=== PATIENT | male | born 1940 | race Caucasian/White ===

== ENCOUNTER → 2017-09-14 | Outpatient (CLI) | payer BC ==
[~2017-09-14] MED LIST: ASPEC81 PO; ATEN50TA8 PO; CHOL100010 PO; FLV1 PO; GLC850 PO; HYDR25TA4 PO; LISI-729 PO; METH1CHW PO; SIMV20TA2 PO; THM100 PO
== END | disposition home or self-care (01) ==
LOC: C.PATHSPEC 16:33
PROVIDERS: ATTEND Physician Assistant
DX: L57.0 Actinic keratosis (principal)

== ENCOUNTER 2020-03-21 15:16 | Inpatient (IN) ==
[2020-03-21] MEDS ORDERED: GLUCAGON FOR INJ 1 MG VIAL SQ PRN (15:31)
[2020-03-21] MEDS ORDERED: POLYETHYLENE (MIRALAX) 17 GM PACK PO PRN (15:31)
[2020-03-21] MEDS ORDERED: GLUCOSE 10 TABS/TUBE PO PRN (15:31)
[2020-03-21] MEDS ORDERED: ALUMINUM/MAGNESIUM SUSP 30 ML UDC PO PRN (15:31)
[2020-03-21] MEDS ORDERED: MAGNESIUM HYDROXIDE SUSP 30 ML UDC PO PRN (15:31)
[2020-03-21] MEDS ORDERED: ONDANSETRON INJ 2 MG/ML 2 ML VIAL IV PRN (15:31)
[2020-03-21] MEDS ORDERED: GLUCOSE 40% GEL 15 GM TUBE PO PRN (15:31)
[2020-03-21] MEDS ORDERED: DEXTROSE 50% 50 ML SYRINGE IV PRN (15:31)
[2020-03-21] MEDS ORDERED: ACETAMINOPHEN 325 MG TAB PO PRN (15:31)
[2020-03-21] MEDS ORDERED: CARBOHYDRATES FOR HYPOGLYCEMIA PO PRN (15:31)
[2020-03-21] MEDS ORDERED: PATIENT'S HEIGHT AND/OR WEIGHT NEEDED SCH (15:45)
--- NOTE | 2020-03-21 16:56 | XRay Report ---
XR chest 1V portable HISTORY: 79 years-old Male sob acute shortness of breath COMPARISON: Chest radiograph 07/20/2014 TECHNIQUE: Portable AP view of the chest FINDINGS: Cardiac silhouette is enlarged. Prior median sternotomy. Subsegmental bibasilar and right midlung opa cities suggest atelectasis. Moderate sized right pneumothorax, pleural separation of 6 cm. No midline shift. Degenerative changes of the shoulders and spine. No acute rib fracture. IMPRESSION: 1. Moderate sized right pneumothorax. 2. Cardiomegaly without overt pulmonary edema. 3. Mild bibasilar atelectasis. ACT 112: Negative or not required by law. The above report was generated using voice recognition software. It may contain grammatical, syntax o r spelling errors. Electronically signed by: Velasquez Dye M.D. 03/21/2020 4:54 PM
[2020-03-21] MEDS ORDERED: FUROSEMIDE 40 MG in SYRINGE 0 ML IV SCH (17:00)
--- NOTE | 2020-03-21 17:06 | History & Physical Report ---
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 CXR reveals moderate sized pneumothorax with 6cm pleural separation, no midline shift. No recent trauma, etiology unclear. Pulmonology Dr. Mao called and notified Admit to PCU Obtain initial blood work CBC, CMP, mag, troponin, proBNP, PT/INR, PTT Obtain EKG, echocardiogram Placed patient on high percent FiO2 oxygen Will repeat chest x-ray at 8 PM Await further recommendations from pulmonology (2) Diabetes: Last A1c 6.6 03/08/20 hold glipizide novolog per protocol (3) HTN (hypertension): blood pressure elevated and meets criteria for htn urgeny likely in setting of acute pneumothorax will give home atenolol and lisinopril now and re eval, hold HCTZ monitor (4) Prosthetic aortic valve stenosis: pt with moderate-severe Prosthetic aortic valve stenosis Last echocardiogram 11/23/2019 EF 60%, grade 2 diastolic dysfunction, mildly enlarged left atrium Patient recommended from cardiology clinic due to acute onset shortness of breath and possible concern for acute CHF Appears her shortness of breath is likely related to acute pneumothorax, cause unknown Repeat echocardiogram and will discontinue cardiology consult (5) HLD (hyperlipidemia): continue statin (6) CKD (chronic kidney disease) stage 3, GFR 30-59 ml/min: baseline cr 1.6 monitor renal fxn, avoid nephrotoxic agents (7) SANDI on CPAP: hold CPAP in setting of acute pneumothorax DVT prophylaxis: SCD/TEDS for now in event procedure required Disposition: admit to PCU Follow up: PCP Dr. Edwards upon discharge Pt was seen and examined in collaboration with Dr. Lao, please see addendum Admission and Anticipated Discharge Date Admission Date: March 21, 2020 History of Present Illness Chief Complaint: SOB that started at 4 a.m. 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 Patient states he was lying in bed when he woke up abruptly with shortness of breath. Symptoms improved when he sat up but did not completely dissipate. Symptoms were worsened with exertion and minimally improved with rest. He also admits to mild increase in swelling to his bilateral lower extremities. He denies similar symptoms in past. He denies any fever, chills, sweats, lightheadedness, dizziness, syncope, chest pain, cough, hemoptysis, palpitations, nausea, vomiting, abdominal pain. He denies any change in appetite. He denies any change in urinary frequency urgency. He denies any known COVID-19 exposures, loss of taste or smell. He does not monitor his weight to know if he has any weight changes. He feels if anything he may have lost weight. has been mentioning he has been looking increasingly bloated in the belly. Due to symptoms he called cardiology to be seen today. He was seen and evaluated by gas engine operator compressors Dr. Calero. I personally spoke with Dr. Calero due to concern for SOB and felt need for acute hospitalization for further work up. Of initial concern is worsening of prosthetic valve stenosis vs chf vs htn urgency. Allergies Allergy/AdvReac Type Severity Reaction Status Date / Time felodipine Allergy Intermediate HIVES Verified 03/21/20 15:41 Home Medications Home Medications Medication Instructions Recorded Confirmed Type aspirin 81 mg tablet,delayed 81 mg PO DAILY 05/19/19 03/21/20 History release allopurinol 100 mg tablet 100 mg PO DAILY 02/24/20 03/21/20 History atenolol 50 mg tablet 50 mg PO DAILY 02/24/20 03/21/20 History atorvastatin 40 mg tablet 40 mg PO DAILY 02/24/20 03/21/20 History folic acid 800 mcg tablet 0.8 mg PO DAILY 02/24/20 03/21/20 History glipizide 10 mg tablet 10 mg PO DAILY 02/24/20 03/21/20 History hydrochlorothiazide 50 mg tablet 50 mg PO DAILY 02/24/20 03/21/20 History lisinopril 5 mg tablet 5 mg PO DAILY 02/24/20 03/21/20 History cholecalciferol (vitamin D3) 25 mcg PO DAILY 03/21/20 03/21/20 History [Vitamin D3] cyanocobalamin (vitamin B-12) 500 mcg PO DAILY 03/21/20 03/21/20 History thiamine HCl (vitamin B1) 100 mg PO DAILY 03/21/20 03/21/20 History Past Med/Surg History Medical History CKD (chronic kidney disease) stage 3, GFR 30-59 ml/min Diabetes HLD (hyperlipidemia) SANDI on CPAP Psoriasis Steatohepatitis, non-alcoholic Vitamin D deficiency Surgical History History of aortic valve replacement History of colonoscopy History of hernia repair Rupture quadriceps tendon Family History Brother Heart disease CABG 2014 Father , 61 COPD (chronic obstructive pulmonary disease) Social History Smoking Status: Never smoker Hx Alcohol Use: Yes Alcohol type: beer and hard liquor Hx Substance Use: No Preferred Language: Vincentian 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: Effective 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: No Beliefs That Will Affect Care: None marital status: Current Living Situation: Spouse Feels Safe at Home: Yes Safety Concerns: Feels Safe At This Time Review of Systems Review of Systems: All systems reviewed & are unremarkable except as noted in HPI & below Physical Exam Physical Exam: Constitutional: WD/WN, vitals as above, NAD, sitting up in bed, pleasant, dyspneic with conversation Head: Normocephalic, Atraumatic, erythematous facies Eyes: PERRL, conjunctivae normal, anicteric sclerae ENMT: external ear and nose normal, oropharynx normal Neck: trachea midline, no thyromegaly normal visual inspection Respiratory: tachypnea, Decreased/abs breath sounds R base compared to left, no wheeze, rales, rhonchi. Normal insp/exp effort, no accessory muscle use Cardiovascular: RRR, no murmur, no edema Vessels: no JVD or carotid bruit Chest: normal inspection of chest Abdomen: normal bowel sounds, soft, nontender, no hepatosplenomegaly Musculoskeletal: no cyanosis or clubbing, extremities motor strength 5/5 Skin: no rashes, warm and dry normal turgor Neurologic: PERRL, EOMI, accommodation nl, no face palsy, no dysarthria CN's II-XI intact bilaterally and moves all extremities Psychiatric: A+Ox3, euthymic affect Lymphatic: no cervical or axillary lymphadenopathy : deferred Results & Data Results & Data ([facility]) Vital Signs (Past 12 Hours) Vital Signs Temp Pulse Resp BP Pulse Ox 03/21/20 16:28 190/95 H 03/21/20 16:21 36.4 C L 86 22 208/106 H 94 Diagnostic Findings CXR: IMPRESSION: 1. Moderate sized right pneumothorax. 2. Cardiomegaly without overt pulmonary edema. 3. Mild bibasilar atelectasis. Code Status & VTE Plan Code Status Full Code VTE Prophylaxis Plan VTE Prophylaxis will be ordered: Yes Supervising Physician Co-Signing Physician Notes I saw this patient with the physician assistant producer, I participated in the history, physical, review of systems, and physical exam. I reviewed the medications with the patient and the physician assistant producer and helped reconcile the medications. I helped take a detailed family and social history as well. I formulated the assessment and plan personally with the physician assistant producer and went over it with the patient. Physical Exam Gen-AAO x 3, NAD, Afebrile Head-NCAT, EOMI, PERRLA, Anicteric Sclera, No Posterior Pharyngeal Erythema Neck-Supple, No JVD, No Thyromegaly, No Masses, No LAD, No Bruits Lungs-Diminished at the bases Chest-No S4, +S1, +S2, No S3, No Murmurs, No Rubs, No Gallops, No Ectopy Abdomen-Soft, Bowel Sounds Present, Non Tender, Non Distended, No Hepatomegaly, No Splenomegaly, No Palpable Masses, No Rebound, No Rigidity, No Guarding Musculoskeletal-Full Range of Motion Bilaterally, No CVAT Extremities-No Cyanosis, No Clubbing, No Edema Nuero-Cranial Nerves II-XII grossly intact, Motor WNL, DTRs WNL, Strength WNL, Non Focal Psych-Normal Mood
[2020-03-21 17:12] LABS: Basophils # (auto) 0.02 K/uL (0-0.2); Basophils % (auto) 0.3 %; Eosinophils # (auto) 0.39 K/uL (0-0.5); Eosinophils % (auto) 6.3 %; Hematocrit (blood only) 36.3 % (42-52); Immature Granulocytes # (auto) 0.02 K/uL (0.00-0.02); Immature Granulocytes % (auto) 0.3 %; Lymphocytes # (auto) 1.31 K/uL (1.2-3.4); Mean Corpuscular Hemoglobin 30.3 pg (25-34); Mean Corpuscular Volume 91.7 fL (80-100); Mean Platelet Volume 9.2 fL (7.4-10.4); Monocytes # (auto) 0.45 K/uL (0.11-0.59); Monocytes % (auto) 7.2 %; Neutrophils # (auto) 4.05 K/uL (1.4-6.5); Neutrophils % (auto) 64.9 %; Platelet Count 103 K/uL (130-400); RDW Coefficient of Variation 14.2 % (11.5-14.5); RDW Standard Deviation 47.7 fL (36.4-46.3); Red Blood Count 3.96 M/uL (4.7-6.1); White Blood Count 6.24 K/uL (4.8-10.8)
[2020-03-21 17:18] LABS: Mean Corpuscular Hgb Conc 33.1 g/dL (32-36)
[2020-03-21] MEDS: INSULIN ASPART 100 UNITS/ML 3 ML PEN SC SCH ×2 (17:19→20:25)
[2020-03-21 17:24] LABS: INR 1.2 (0.9-1.1); Partial Thromboplastin Ratio 1.1; Partial Thromboplastin Time 29.7 Seconds (21.0-31.0); Prothrombin Time 12.2 Seconds (9.0-12.0)
[2020-03-21 17:30] LABS: Alanine Aminotransferase 34 U/L (12-78); Albumin Level 3.3 gm/dl (3.4-5.0); Aspartate Aminotransferase 40 U/L (15-37); BUN Creatinine Ratio 19.6 (10-20); Blood Urea Nitrogen 30 mg/dl (7-18); Calcium 8.8 mg/dl (8.5-10.1); Carbon Dioxide 27 mmol/L (21-32); Chloride 104 mmol/L (98-107); Creatinine Clr Calc Pharmacy 47.6 ml/min; Est GFR (African American) 48.7; Glucose 134 mg/dl (70-99); Magnesium 1.3 mg/dl (1.8-2.4); Potassium 4.5 mmol/L (3.5-5.1); Sodium 137 mmol/L (136-145)
[2020-03-21 17:35] LABS: Albumin Globulin Ratio 0.7 (0.9-2); Alkaline Phosphatase 169 U/L (45-117); Bilirubin,Total 1.1 mg/dl (0.2-1); Globulin 4.9 gm/dl (2.5-4.0); NT Pro B Type Natriuretic Pept 1548 pg/ml (0-1800); Total Protein 8.2 gm/dl (6.4-8.2); Troponin I < 0.015 ng/ml (0-0.045)
[2020-03-21] MEDS ORDERED: NITROGLYCERIN 2% OINTMENT 30GM TUBE EXT SCH (18:00)
[2020-03-21] MEDS: ATENOLOL 50 MG TABLET PO SCH (18:02)
[2020-03-21] MEDS: lisinopriL 5 MG TAB PO SCH (18:02)
[2020-03-21] MEDS ORDERED: LIDOCAINE HCL 1% 20 ML VIAL ONE (18:15)
--- NOTE | 2020-03-21 18:43 | Pulmonary Consultation ---
Date of Consultation March 21, 2020 Assessment & Plan (1) Pneumothorax on right: Impression: 79-year-old male without prior history of lung disease presenting now with what appears to be spontaneous pneumothorax on the right. This may have been exacerbated by coughing. Recommendations: 1. The patient will undergo pigtail drain placement on the right. We will check follow-up chest x-ray. Will have it remain on suction overnight and see how he does. Chest x-ray in the morning. If he does well, will consider clamping the tube and repeating a chest x-ray in 4 to 6 hours to ensure the lung remains up. The above recommendations and plan were discussed with the patient in detail and he is agreeable to proceed. 2. Will defer CT scanning of the chest although if the patient has persistent air leak or the lung fails to respond, a noncontrasted CT scan of the chest may be appropriate. 3. Management of the patient's other medical issues per primary service. Thanks for the opportunity of assisting in care management this patient. Feel free to contact us with any questions History of Present Illness Attending Physician: Tye Lao, DO History of Present Illness Asked by hospitalist to assist in management of this patient with what appears to be spontaneous pneumothorax. History is obtained from discussion with the hospitalist, reviewed electronic medical record, interview the patient. The patient is an 79-year-old male with a history of chronic kidney disease and status post bioprosthetic AVR in 2013. He has significant restenosis of his prosthetic valve. He was seen in the cardiology clinic and reported acute onset of shortness of breath which initiated about 24 hours earlier. The patient had been coughing without sputum production. He does not report any history of trauma. He is a lifelong non-smoker. He was directly admitted to the hospital with presumptive diagnosis of CHF exacerbation. Chest x-ray was obtained which revealed a pneumothorax and pulmonary was consulted. The patient does not report a prior history of pneumothorax or structural lung disease. He is not in acute distress. No ill contacts or travel history. Allergies Allergy/AdvReac Type Severity Reaction Status Date / Time felodipine Allergy Intermediate HIVES Verified 03/21/20 15:41 Home Medications Home Medications Medication Instructions Recorded Confirmed Type aspirin 81 mg tablet,delayed 81 mg PO DAILY 05/19/19 03/21/20 History release allopurinol 100 mg tablet 100 mg PO DAILY 02/24/20 03/21/20 History atenolol 50 mg tablet 50 mg PO DAILY 02/24/20 03/21/20 History atorvastatin 40 mg tablet 40 mg PO DAILY 02/24/20 03/21/20 History folic acid 800 mcg tablet 0.8 mg PO DAILY 02/24/20 03/21/20 History glipizide 10 mg tablet 10 mg PO DAILY 02/24/20 03/21/20 History hydrochlorothiazide 50 mg tablet 50 mg PO DAILY 02/24/20 03/21/20 History lisinopril 5 mg tablet 5 mg PO DAILY 02/24/20 03/21/20 History cholecalciferol (vitamin D3) 25 mcg PO DAILY 03/21/20 03/21/20 History [Vitamin D3] cyanocobalamin (vitamin B-12) 500 mcg PO DAILY 03/21/20 03/21/20 History thiamine HCl (vitamin B1) 100 mg PO DAILY 03/21/20 03/21/20 History Patient History Medical History CKD (chronic kidney disease) stage 3, GFR 30-59 ml/min Diabetes HLD (hyperlipidemia) SANDI on CPAP Psoriasis Steatohepatitis, non-alcoholic Vitamin D deficiency Surgical History History of aortic valve replacement History of colonoscopy History of hernia repair Rupture quadriceps tendon Family History Brother Heart disease CABG 2014 Father , 61 COPD (chronic obstructive pulmonary disease) Social History Smoking Status: Never smoker Hx Alcohol Use: Yes Alcohol type: beer and hard liquor Hx Substance Use: No Preferred Language: Citizen Of [place] 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: Effective 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 No additions or deletions Physical Exam Physical Exam: Constitutional: WD/WN, vitals as above, NAD, sitting up in bed, pleasant, dyspneic with conversation Head: Normocephalic, Atraumatic, erythematous facies Eyes: PERRL, conjunctivae normal, anicteric sclerae ENMT: external ear and nose normal, oropharynx normal Neck: trachea midline, no thyromegaly normal visual inspection Respiratory: tachypnea, Decreased/abs breath sounds R base compared to left, no wheeze, rales, rhonchi. Normal insp/exp effort, no accessory muscle use Cardiovascular: RRR, no murmur, no edema Vessels: no JVD or carotid bruit Chest: normal inspection of chest Abdomen: normal bowel sounds, soft, nontender, no hepatosplenomegaly Musculoskeletal: no cyanosis or clubbing, extremities motor strength 5/5 Skin: no rashes, warm and dry normal turgor Neurologic: PERRL, EOMI, accommodation nl, no face palsy, no dysarthria CN's I I-XI intact bilaterally and moves all extremities Psychiatric: A+Ox3, euthymic affect Lymphatic: no cervical or axillary lymphadenopathy : deferred Results & Data Results & Data ([facility]) Vital Signs (Past 12 Hours) Vital Signs Temp Pulse Resp BP Pulse Ox 03/21/20 16:28 190/95 H 03/21/20 16:21 36.4 C L 86 22 208/106 H 94 Laboratory Results 03/21/20 16:59 03/21/20 16:59 Diagnostic Findings Chest x-ray from 03/21/2430 was independently reviewed. There is a moderate to large sized right-sided pneumothorax. The patient is status post median sternotomy. No significant tracheal deviation or midline shift. PG Care Time/CCT Total # of Minutes Spent Total Time Spent with Patient: Total time spent is greater than 50% in coordination of care (as documented) at patient's floor/unit and/or counseling patient: Coding Level of Care Code 80846 Initial Inpt Care Lvl 3 Diagnoses Pneumothorax on right J93.9
--- NOTE | 2020-03-21 18:47 | Procedure Note ---
Procedure Note Date of Service March 21, 2020 Procedure: 8 Frisian pigtail skater catheter placement on the right Indication: Pneumothorax Senior Contracts Manager Dr. Mao Anesthesia: 10 mL's 1% lidocaine without epinephrine locally. Procedure: The patient was placed in the right side up decubitus position. Area in the anterior axillary line corresponding to the nipple was cleaned and prepped using ChloraPrep. A sterile field was established. The skin and underlying subcutaneous tissues were anesthetized with lidocaine. Using the finder needle, the rib was palpated and I was able to enter the pleural space with aspiration of air. The needle was left in the pleural space and a wire advanced through the needle at which point the needle was removed leaving the wire in place. An 11 blade scalpel was used to make a skin yaw around the wire insertion site. An 8 Frisian dilator was used over the wire to dilate the tract. Once the tract was dilated, an 8 Frisian pigtail skater catheter was advanced over the wire into the pleural space. The wire and pigtail catheter plater hot dip were removed. The skater catheter was left in place and attached to the Christen drainage system with significant drainage of air. The patient reported immediate improvement in his breathing. The tube was secured in place and left to 20 cm of suction. At the conclusion of the procedure, there was no additional air leak noted from the chest tube. The patient tolerated the procedure well without obvious complication. A post procedure chest x-ray is pending. Estimated blood loss: Less than 5 mL's Coding CPT Codes Pulmonary/Thoracic - Pulmonary and Thoracic: 29702 Tube thoracostomy ([id number]) [facility] [place] Procedure Codes (Charges) Pulmonary/Thoracic Procedure 1: Pulmonary and Thoracic: 16329 Tube thoracostomy
--- NOTE | 2020-03-21 19:04 | XRay Report ---
XR chest 1V portable HISTORY: 79 years-old Male chest tube placement status post right-sided chest tube placement. Pneumo thorax. COMPARISON: Chest radiograph of same day at 4:30 PM TECHNIQUE: Portable AP view of the chest FINDINGS: Cardiac silhouette is enlarged. Prior median sternotomy. Mild subsegmental bibasilar densities favori ng atelectasis. Status post placement of a right-sided chest tube with distal tip terminating at the lateral right mid to lower lung. There is improved aeration of the right lung with decreased size of the pneumothorax, now with pleural separation at 10 mm. Bones appear grossly intact. Degenerative mony nges of the shoulders and spine. IMPRESSION: Small right apical pneumothorax has decreased in size status post placement of a right-si ded chest tube. ACT 112: Negative or not required by law. The above report was generated using voice recognition software. It may contain grammatical, syntax o r spelling errors. Electronically signed by: Velasquez Dye M.D. 03/21/2020 7:02 PM
[2020-03-21] MEDS: MAGNESIUM SULFATE / D5W 1 GM/100 ML BAG IV SCH ×3 (19:56→23:55)
[2020-03-22 07:23] LABS: Hematocrit (blood only) 31.4 % (42-52); Hemoglobin 10.4 g/dL (14.0-18.0); Mean Corpuscular Hemoglobin 30.9 pg (25-34); Mean Corpuscular Hgb Conc 33.1 g/dL (32-36); Mean Corpuscular Volume 93.2 fL (80-100); RDW Coefficient of Variation 14.2 % (11.5-14.5); RDW Standard Deviation 48.5 fL (36.4-46.3); Red Blood Count 3.37 M/uL (4.7-6.1)
[2020-03-22] MEDS ORDERED: PERFLUTREN LIPID MICROSPHERE (DEFINITY) IV ONE (07:33)
--- NOTE | 2020-03-22 07:43 | XRay Report ---
XR chest 1V portable CLINICAL HISTORY: pneumothorax COMPARISON STUDY: 03/21/2020 FINDINGS: A right-sided pigtail pleural catheter is again visualized. The proximal portion of the pig tail may be in the chest wall. The heart is borderline enlarged. No residual pneumothorax is visualiz ed. Basilar opacities are likely atelectatic.[ IMPRESSION: 1. No change in the position of the right-sided chest tube 2. No residual pneumothorax is visualized 3. Basilar opacities likely atelectatic ACT 112: Negative or not required by law. Electronically signed by: Pipe Sánchez M.D. 03/22/2020 7:42 AM
[2020-03-22 07:53] LABS: Mean Platelet Volume 9.4 fL (7.4-10.4); Platelet Count 89 K/uL (130-400); Platelet Estimate Decreased (Normal)
[2020-03-22 08:01] LABS: Alanine Aminotransferase 24 U/L (12-78); Albumin Level 2.7 gm/dl (3.4-5.0); Aspartate Aminotransferase 27 U/L (15-37); Blood Urea Nitrogen 31 mg/dl (7-18); Calcium 8.4 mg/dl (8.5-10.1); Carbon Dioxide 29 mmol/L (21-32); Chloride 104 mmol/L (98-107); Creatinine Clr Calc Pharmacy 49.4 ml/min; Est GFR (African American) 51.1; Est GFR (Non-African American) 44.1; Glucose 130 mg/dl (70-99); Magnesium 1.9 mg/dl (1.8-2.4); Potassium 4.5 mmol/L (3.5-5.1); Sodium 138 mmol/L (136-145)
[2020-03-22 08:06] LABS: Albumin Globulin Ratio 0.6 (0.9-2); Alkaline Phosphatase 136 U/L (45-117); Bilirubin,Total 1.1 mg/dl (0.2-1); Globulin 4.2 gm/dl (2.5-4.0); Total Protein 6.9 gm/dl (6.4-8.2); Troponin I < 0.015 ng/ml (0-0.045)
[2020-03-22] MEDS: INSULIN ASPART 100 UNITS/ML 3 ML PEN SC SCH ×4 (08:15→20:40)
[2020-03-22] MEDS: THIAMINE HCL 100 MG TAB PO SCH (08:17)
[2020-03-22] MEDS: MAGNESIUM OXIDE 400 MG TAB PO SCH (08:17)
[2020-03-22] MEDS: CYANOCOBALAMIN 500 MCG TABLET (VITAMIN B-12) PO SCH (08:17)
[2020-03-22] MEDS: allopurinoL 100 MG TAB PO SCH (08:17)
[2020-03-22] MEDS: ASPIRIN 81 MG ECTAB PO SCH (08:17)
[2020-03-22] MEDS: FOLIC ACID 400 MCG TAB PO SCH (08:17)
[2020-03-22] MEDS: ATORVASTATIN 40 MG TAB PO SCH (08:17)
[2020-03-22] MEDS: CHOLECALCIFEROL 1,000 UNITS 25 MCG TAB PO SCH (08:17)
[2020-03-22] MEDS: ATENOLOL 50 MG TABLET PO SCH (08:18)
[2020-03-22] MEDS: lisinopriL 5 MG TAB PO SCH (08:24)
--- NOTE | 2020-03-22 09:30 | Pulmonology Progress Note ---
Date of Service March 22, 2020 Assessment & Plan (1) Pneumothorax on right: Impression: 79-year-old male without prior history of lung disease presenting now with what appears to be spontaneous pneumothorax on the right. This may have been caused by coughing. It was evacuated with placement of the pigtail catheter 03/21/2020 and x-ray today looks good with no air leak Recommendations: 1. Spontaneous pneumothorax: The chest tube was clamped. We will check a chest x-ray around noon today. If the lung remains well expanded, can likely discontinue the pigtail catheter and from a pulmonary perspective the patient can be dismissed from the hospital. Given that this is the patient's first event, and he does not have a history of structural lung disease, I do not think we need to proceed with pleurodesis at this point time although if the pneumothorax were to recur, pleurodesis at that point time would not be unreasonable. 2. Management of the patient's other medical issues per primary service. Feel free to contact us with any additional questions. Plan was communicated to the patient and his bedside nurse. Admission and Anticipated Discharge Date Admission Date: March 21, 2020 Subjective Patient seen and examined. EMR reviewed. He is doing well clinically. He does complain of some slight pain whenever he has to lift his right arm but otherwise his breathing is much better. No coughing or sputum production. Review of Systems Review of Systems: Unchanged from prior Physical Exam Constitutional: WD/WN, vitals as above Neck: trachea midline, no thyromegaly Respiratory: normal respiratory effort, lungs clear to auscultation Cardiovascular: RRR, no murmur, no edema Chest (Breasts): Additional Comments: Air leak resolved Gastrointestinal (Abdomen): normal bowel sounds, soft, nontender, no hepatosplenomegaly Musculoskeletal: Extremities: extremities normal to inspection Skin: no rashes, warm and dry Neurologic: Nonfocal exam Lymphatic: no cervical lymphadenopathy Results & Data Results & Data ([facility]) Vital Signs (Past 12 Hours) Vital Signs Temp Pulse Pulse Resp BP Pulse Ox 03/22/20 08:11 36.9 C 62 22 163/57 H 100 03/22/20 04:12 36.7 C 53 L 18 134/52 L 98 03/21/20 23:56 36.8 C 54 L 24 137/58 L 100 03/21/20 23:32 48 L Laboratory Results 03/22/20 06:48 03/22/20 06:48 Diagnostic Findings Chest x-ray this morning demonstrated a small apical pneumothorax PG Care Time/CCT Total # of Minutes Spent Total Time Spent with Patient: Total time spent is greater than 50% in coordinat ion of care (as documented) at patient's floor/unit and/or counseling patient: Coding Level of Care Code 96329 Subseq Hosp Care Lvl 3 Diagnoses Pneumothorax on right J93.9
--- NOTE | 2020-03-22 13:07 | XRay Report ---
XR chest 1V portable HISTORY: 79 years-old Male ptx follow-up study in a patient with right-sided pneumothorax COMPARISON: Chest radiograph 03/22/2020 TECHNIQUE: Portable AP view of the chest FINDINGS: Cardiac silhouette is enlarged, unchanged. Prior median sternotomy. Calcified plaque of the thoracic aortic arch. Mild blunting of the costophrenic angles suggests trace effusions with atelectasis. Pigt ail pleural catheter is unchanged in positioning. No definite pneumothorax identified. Degenerative c hanges of the shoulders and spine. IMPRESSION: Unchanged positioning of the right-sided pigtail pleural catheter. No pneumothorax identi fied. ACT 112: Negative or not required by law. The above report was generated using voice recognition software. It may contain grammatical, syntax o r spelling errors. Electronically signed by: Velasquez Dye M.D. 03/22/2020 1:05 PM
--- NOTE | 2020-03-22 14:16 | Procedure Note ---
Procedure Note Date of Service March 22, 2020 Procedure: Removal of right 14 Pashto pigtail catheter Deputy Brand Inspector Dr. Mao. Anesthesia none Procedure: Patient's chest tube is been clamped since 8:00 this morning with no evidence of pneumothorax on follow-up film performed 4 hours later. Decision was made to remove the chest tube. The dressing was taken down. The sutures securing the pigtail were cut. The drain was pulled on expiration and a petroleum impregnated gauze was applied over the puncture site. This was secured with a Tegaderm. The patient tolerated the procedure well. His oxygen was discontinued. No indication for follow-up imaging in the absence of clinical symptoms. Coding CPT Codes Pulmonary/Thoracic - Pulmonary and Thoracic: 81750 Remove lung catheter ([id number]) [facility] [place] Procedure Codes (Charges) Pulmonary/Thoracic Procedure 1: Pulmonary and Thoracic: 33778 Remove lung catheter
--- NOTE | 2020-03-22 15:06 | Hospitalist Progress Note ---
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 CXR reveals moderate sized pneumothorax with 6cm pleural separation, no midline shift. No recent trauma, etiology unclear. Appreciate pulmonary input and recommendation Status post pigtail catheter placement on right side on 03/21/2020 Has been feeling a lot better this morning and repeat x-ray did show decrease in the pneumothorax Status post removal of the pigtail catheter this afternoon Repeat x-ray following removal of the catheter did not show any reaccumulation of air Likely be discharged tomorrow (2) Diabetes: Last A1c 6.6 03/08/20 hold glipizide novolog per protocol (3) HTN (hypertension): blood pressure elevated and meets criteria for htn urgeny likely in setting of acute pneumothorax will give home atenolol and lisinopril now and re eval, hold HCTZ Blood pressure is controlled (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 No significant change with the prior echo We will continue current medications for the heart (5) HLD (hyperlipidemia): continue statin (6) CKD (chronic kidney disease) stage 3, GFR 30-59 ml/min: baseline cr 1.6 monitor renal fxn, avoid nephrotoxic agents (7) SANDI on CPAP: hold CPAP in setting of acute pneumothorax DVT prophylaxis: SCD/TEDS for now in event procedure required Disposition: admit to PCU Follow up: PCP Dr. Edwards upon discharge Discharge tomorrow Admission and Anticipated Discharge Date Admission Date: March 21, 2020 Subjective 03/22/2020 Patient was seen and examined in telemetry unit He was admitted with spontaneous pneumothorax and is status post pigtail catheter on the right side He has been feeling a lot better today Denies any significant symptoms Review of Systems Review of Systems: All systems reviewed and are unremarkable except as noted below Respiratory: + dyspnea on exertion and + pain on inspiration (On right side); no cough Physical Exam Physical Exam: Lying in bed comfortably Constitutional: well developed and well nourished; no acute distress and not ill appearing Eyes: PERRL, conjunctivae normal, anicteric sclerae ENMT: external ear and nose normal, oropharynx normal Neck: trachea midline, no thyromegaly Respiratory: normal respiratory effort; no respiratory distress Auscultation: + diminished lung sounds (Right side) Cardiovascular: Rate/Rhythm: regular rate and regular rhythm Heart Sounds: no murmur Gastrointestinal (Abdomen): Inspection/Auscultation: abdomen normal to inspection and normal bowel sounds; abdomen not distended Percussi on/Palpation: abdomen soft; abdomen nontender Musculoskeletal: No acute arthritis involving any joints Neurologic: moves all extremities; no focal motor deficits Lymphatic: no cervical or axillary lymphadenopathy Results & Data Results & Data ([facility]) Vital Signs (Past 12 Hours) Vital Signs Temp Pulse Pulse Resp BP Pulse Ox 03/22/20 11:29 36.4 C L 53 L 18 122/52 L 100 03/22/20 08:11 36.9 C 62 22 163/57 H 100 03/22/20 08:00 50 L 03/22/20 04:12 36.7 C 53 L 18 134/52 L 98 Laboratory Results Short CBC 03/21/20 03/22/20 Range/Units 16:59 06:48 WBC 6.24 6.00 (4.8-10.8) K/uL Hgb 12.0 L 10.4 L (14.0-18.0) g/dL Hct 36.3 L 31.4 L (42-52) % Plt Count 103 L 89 L (130-400) K/uL BMP 03/21/20 03/22/20 16:59 06:48 Sodium 137 138 Potassium 4.5 4.5 Chloride 104 104 Carbon Dioxide 27 29 BUN 30 H 31 H Creatinine 1.53 H 1.47 H Glucose 134 H 130 H Calcium 8.8 8.4 L Cardiac Enzymes 03/21/20 03/21/20 03/22/20 Range/Units 16:59 22:53 06:48 Troponin I < 0.015 < 0.015 < 0.015 (0-0.045) ng/ml Liver Function 03/21/20 03/22/20 Range/Units 16:59 06:48 Total Bilirubin 1.1 H 1.1 H (0.2-1) mg/dl AST 40 H 27 (15-37) U/L ALT 34 24 (12-78) U/L Alkaline Phosphatase 169 H 136 H (45-117) U/L Albumin 3.3 L 2.7 L (3.4-5.0) gm/dl Medications Administered Current Inpatient Medications Acetaminophen (Acetaminophen 325 Mg Tab) 650 mg PO Q4H PRN PRN Reason: Pain or Fever Stop: 04/20/20 15:30 Al Hydrox/Mg Hydrox/Simethicone (Aluminum/Magnesium Susp 30 Ml Udc) 15 ml PO Q4H PRN PRN Reason: Dyspepsia Stop: 04/20/20 15:30 Allopurinol (Allopurinol 100 Mg Tab) 100 mg PO DAILY [facility] Stop: 04/21/20 08:59 Last Admin: 03/22/20 08:17 Dose: 100 mg Documented by: Aspirin (Aspirin 81 Mg Ectab) 81 mg PO DAILY [facility] Stop: 04/21/20 08:59 Last Admin: 03/22/20 08:17 Dose: 81 mg Documented by: Atenolol (Atenolol 50 Mg Tablet) 50 mg PO DAILY [facility] Stop: 04/20/20 16:59 Last Admin: 03/22/20 08:18 Dose: 50 mg Documented by: Atorvastatin Calcium (Atorvastatin 40 Mg Tab) 40 mg PO DAILY [facility] Stop: 04/21/20 08:59 Last Admin: 03/22/20 08:17 Dose: 40 mg Documented by: Cyanocobalamin (Cyanocobalamin 500 Mcg Tablet (Vitamin B-12)) 500 mcg PO DAILY [facility] Stop: 04/21/20 08:59 Last Admin: 03/22/20 08:17 Dose: 500 mcg Documented by: Dextrose (Dextrose 50% 50 Ml Syringe) 25 - 50 ml IV UD PRN; Protocol PRN Reason: Hypoglycemia Protocol Stop: 04/20/20 15:30 Folic Acid (Folic Acid 400 Mcg Tab) 800 mcg PO DAILY [facility] Stop: 04/21/20 08:59 Last Admin: 03/22/20 08:17 Dose: 800 mcg Documented by: Glucagon (Glucagon For Inj 1 Mg Vial) 1 mg SQ UD PRN; Protocol PRN Reason: Hypoglycemia Protocol Stop: 04/20/20 15:30 Glucose (Glucose 10 Tabs/Tube) 4 - 8 tabs PO UD PRN; Protocol PRN Reason: Hypoglycemia Protocol Stop: 04/20/20 15:30 Glucose (Glucose 40% Gel 15 Gm Tube) 15 - 30 gm PO UD PRN; Protocol PRN Reason: Hypoglycemia Protocol Stop: 04/20/20 15:30 Insulin Aspart (Insulin Aspart 100 Units/Ml 3 Ml Pen) 0 units SC ACHS [facility] Stop: 04/20/20 16:29 Last Admin: 03/22/20 12:18 Dose: 3 units Documented by: Lisinopril (Lisinopril 5 Mg Tab) 5 mg PO DAILY [facility] Stop: 04/20/20 17:59 Last Admin: 03/22/20 08:24 Dose: 5 mg Documented by: Magnesium Hydroxide (Magnesium Hydroxide Susp 30 Ml Udc) 30 ml PO Q12H PRN PRN Reason: Constipation Stop: 04/20/20 15:30 Magnesium Oxide (Magnesium Oxide 400 Mg Tab) 400 mg PO QAM [facility] Stop: 04/21/20 08:59 Last Admin: 03/22/20 08:17 Dose: 400 mg Documented by: Miscellaneous (Carbohydrates For Hypoglycemia ) 15 - 30 gm PO UD PRN PRN Reason: Hypoglycemia Protocol Stop: 04/20/20 15:30 Ondansetron HCl (Ondansetron Inj 2 Mg/Ml 2 Ml Vial) 4 mg IV Q6H PRN PRN Reason: Nausea Stop: 04/20/20 15:30 Polyethylene Glycol (Polyethylene (Miralax) 17 Gm Pack) 17 gm PO DAILY PRN PRN Reason: Constipation Stop: 04/20/20 15:30 Thiamine HCl (Thiamine Hcl 100 Mg Tab) 100 mg PO DAILY [facility] Stop: 04/21/20 08:59 Last Admin: 03/22/20 08:17 Dose: 100 mg Documented by: Vitamin D (Cholecalciferol 1,000 Units 25 Mcg Tab) 1,000 units PO DAILY [facility] Stop: 04/21/20 08:59 Last Admin: 03/22/20 08:17 Dose: 1,000 units Documented by:
--- NOTE | 2020-03-23 07:15 | Pulmonology Progress Note ---
Date of Service March 23, 2020 Assessment & Plan (1) Pneumothorax on right: (2) SANDI on CPAP: Admission and Anticipated Discharge Date Admission Date: March 21, 2020 --Spontaneous primary pneumothorax on the right side Patient is a non-smoker no history of any known lung disease Patient had chest tube placed in on 03/21/2020 which was removed 03/22/2020 Patient is doing clinically well. --SANDI on CPAP Compliant with it Plan: I will order a chest x-ray today. If that is stable patient is clear from pulmonary perspective. Please note the above document was generated using voice recognition software. It may contain grammatical, syntax or spelling errors. Subjective Patient seen and examined at bedside. No acute distress, noted with symptoms overnight. Chest tube was removed yesterday in the afternoon. Patient denies any shortness of breath, no chest pain, no palpitation. Good appetite. Used his BiPAP overnight. Review of Systems Review of Systems: All systems reviewed & are unremarkable except as noted in Subjective Physical Exam Physical Exam: Constitutional: No acute distress HEENT: EOMI, PERRLA Respiratory system: Decreased air entry bilaterally, mild crackles right lower lobe, no wheeze, no rhonchi CVS: S1-S2 positive, no murmurs or gallops, accentuated P2 Abdomen: Soft, nontender, nondistended, positive bowel sounds x4 Extremities: +2 pulses bilaterally radialis, no cyanosis, +1 edema bilateral lower extremity Neuro: Awake alert oriented x3 Psych: Normal mood and affect G/U: No George Skin: no rashes, warm and dry Lymphatic: no cervical or axillary lymphadenopathy Results & Data Results & Data ([facility]) Vital Signs (Past 12 Hours) Vital Signs Temp Pulse Pulse Resp BP Pulse Ox 03/23/20 04:43 36.9 C 62 18 147/61 H 92 03/22/20 23:58 37 C 57 L 18 124/61 94 03/22/20 23:25 64 03/22/20 20:08 62 16 96 03/22/20 19:19 36.9 C 66 23 136/54 L 95 03/22/20 06:48 03/22/20 06:48 PG Care Time/CCT Total # of Minutes Spent Total Time Spent with Patient: Total time spent is greater than 50% in coordination of care (as documented) at patient's floor/unit and/or counseling patient: Coding Level of Care Code 41057 Subseq Hosp Care Lvl 3 Diagnoses Pneumothorax on right J93.9 SANDI on CPAP G47.33; Z99.89
[2020-03-23] MEDS: MAGNESIUM OXIDE 400 MG TAB PO SCH (07:45)
[2020-03-23] MEDS: CHOLECALCIFEROL 1,000 UNITS 25 MCG TAB PO SCH (07:45)
[2020-03-23] MEDS: ATORVASTATIN 40 MG TAB PO SCH (07:46)
[2020-03-23] MEDS: lisinopriL 5 MG TAB PO SCH (07:46)
[2020-03-23] MEDS: allopurinoL 100 MG TAB PO SCH (07:46)
[2020-03-23] MEDS: CYANOCOBALAMIN 500 MCG TABLET (VITAMIN B-12) PO SCH (07:46)
[2020-03-23] MEDS: ASPIRIN 81 MG ECTAB PO SCH (07:46)
[2020-03-23] MEDS: FOLIC ACID 400 MCG TAB PO SCH (07:47)
[2020-03-23] MEDS: ATENOLOL 50 MG TABLET PO SCH (07:47)
[2020-03-23] MEDS: THIAMINE HCL 100 MG TAB PO SCH (07:47)
[2020-03-23] MEDS: INSULIN ASPART 100 UNITS/ML 3 ML PEN SC SCH ×2 (07:51→11:55)
--- NOTE | 2020-03-23 08:08 | XRay Report ---
XR chest 1V portable CLINICAL HISTORY: Pneumothorax COMPARISON STUDY: 03/22/2020 FINDINGS: The right-sided chest tube has been removed. There are bibasilar opacities likely atelectat ic. There are postsurgical changes of midline sternotomy. The heart is mildly enlarged. There is a thomas spected tiny right basilar pneumothorax.[ IMPRESSION: 1. Suspected tiny right basilar pneumothorax. Interval removal of the right-sided chest tube. ACT 112: Negative or not required by law. Electronically signed by: Pipe Sánchez M.D. 03/23/2020 8:07 AM
--- NOTE | 2020-03-23 10:46 | Hospitalist Progress Note ---
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 CXR reveals moderate sized pneumothorax with 6cm pleural separation, no midline shift. No recent trauma, etiology unclear. Appreciate pulmonary input and recommendation Status post pigtail catheter placement on right side on 03/21/2020 Has been feeling a lot better this morning and repeat x-ray did show decrease in the pneumothorax Status post removal of the pigtail catheter this afternoon Repeat x-ray following removal of the catheter did not show any reaccumulation of air Repeat chest x-ray this morning did show only a tiny right basal pneumothorax He denies any symptoms with ambulation Will be discharged this afternoon We will get 2 steps O2 saturation test before discharge (2) Diabetes: Last A1c 6.6 03/08/20 hold glipizide novolog per protocol (3) HTN (hypertension): blood pressure elevated and meets criteria for htn urgeny likely in setting of acute pneumothorax will give home atenolol and lisinopril now and re eval, hold HCTZ Blood pressure is controlled (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 No significant change with the prior echo We will continue current medications for the heart (5) HLD (hyperlipidemia): continue statin (6) CKD (chronic kidney disease) stage 3, GFR 30-59 ml/min: baseline cr 1.6 monitor renal fxn, avoid nephrotoxic agents (7) SANDI on CPAP: hold CPAP in setting of acute pneumothorax DVT prophylaxis: SCD/TEDS for now in event procedure required Disposition: admit to PCU Follow up: PCP Dr. Edwards upon discharge Will be discharged this afternoon Admission and Anticipated Discharge Date Admission Date: March 21, 2020 Subjective 03/22/2020 Patient was seen and examined in telemetry unit He was admitted with spontaneous pneumothorax and is status post pigtail catheter on the right side He has been feeling a lot better today Denies any significant symptoms 03/23/2020 The patient was seen and examined in telemetry unit He has been feeling a lot better today and denies any symptoms Denies any chest pain, shortness of breath, palpitation or any pain on deep inspiration He has been moving around without any problem Review of Systems Review of Systems: All systems reviewed and are unremarkable except as noted below Respiratory: no cough, no dyspnea on exertion and no pain on inspiration (On right side) Physical Exam Physical Exam: Lying in bed comfortably Constitutional: well developed and well nourished; no acute distress and not ill appearing Eyes: PERRL, conjunctivae normal, anicteric sclerae ENMT: external ear and nose normal, oropharynx normal Neck: trachea midline, no thyromegaly Respiratory: normal respiratory effort; no respiratory distress Auscultation: + diminished lung sounds (Diminished breath sounds at the right lung base) Cardiovascular: Rate/Rhythm: regular rate and regular rhythm Heart Sounds: no murmur Gastrointestinal (Abdomen): Inspection/Auscultation: abdomen normal to inspection and normal bowel sounds; abdomen not distended Percussion/Palpation: abdomen soft; abdomen nontender Neurologic: moves all extremities; no focal motor deficits Lymphatic: no cervical or axillary lymphadenopathy Results & Data Results & Data ([facility]) Vital Signs (Past 12 Hours) Vital Signs Temp Pulse Pulse Resp BP Pulse Ox 03/23/20 07:27 36.8 C 57 L 20 155/64 H 94 03/23/20 04:43 36.9 C 62 18 147/61 H 92 03/22/20 23:58 37 C 57 L 18 124/61 94 03/22/20 23:25 64 Medications Administered Current Inpatient Medications Acetaminophen (Acetaminophen 325 Mg Tab) 650 mg PO Q4H PRN PRN Reason: Pain or Fever Stop: 04/20/20 15:30 Al Hydrox/Mg Hydrox/Simethicone (Aluminum/Magnesium Susp 30 Ml Udc) 15 ml PO Q4H PRN PRN Reason: Dyspepsia Stop: 04/20/20 15:30 Allopurinol (Allopurinol 100 Mg Tab) 100 mg PO DAILY [facility] Stop: 04/21/20 08:59 Last Admin: 03/23/20 07:46 Dose: 100 mg Documented by: Aspirin (Aspirin 81 Mg Ectab) 81 mg PO DAILY [facility] Stop: 04/21/20 08:59 Last Admin: 03/23/20 07:46 Dose: 81 mg Documented by: Atenolol (Atenolol 50 Mg Tablet) 50 mg PO DAILY [facility] Stop: 04/20/20 16:59 Last Admin: 03/23/20 07:47 Dose: 50 mg Documented by: Atorvastatin Calcium (Atorvastatin 40 Mg Tab) 40 mg PO DAILY [facility] Stop: 04/21/20 08:59 Last Admin: 03/23/20 07:46 Dose: 40 mg Documented by: Cyanocobalamin (Cyanocobalamin 500 Mcg Tablet (Vitamin B-12)) 500 mcg PO DAILY [facility] Stop: 04/21/20 08:59 Last Admin: 03/23/20 07:46 Dose: 500 mcg Documented by: Dextrose (Dextrose 50% 50 Ml Syringe) 25 - 50 ml IV UD PRN; Protocol PRN Reason: Hypoglycemia Protocol Stop: 04/20/20 15:30 Folic Acid (Folic Acid 400 Mcg Tab) 800 mcg PO DAILY [facility] Stop: 04/21/20 08:59 Last Admin: 03/23/20 07:47 Dose: 800 mcg Documented by: Glucagon (Glucagon For Inj 1 Mg Vial) 1 mg SQ UD PRN; Protocol PRN Reason: Hypoglycemia Protocol Stop: 04/20/20 15:30 Glucose (Glucose 10 Tabs/Tube) 4 - 8 tabs PO UD PRN; Protocol PRN Reason: Hypoglycemia Protocol Stop: 04/20/20 15:30 Glucose (Glucose 40% Gel 15 Gm Tube) 15 - 30 gm PO UD PRN; Protocol PRN Reason: Hypoglycemia Protocol Stop: 04/20/20 15:30 Insulin Aspart (Insulin Aspart 100 Units/Ml 3 Ml Pen) 0 units SC ACHS [facility] Stop: 04/20/20 16:29 Last Admin: 03/23/20 07:51 Dose: 4 units Documented by: Lisinopril (Lisinopril 5 Mg Tab) 5 mg PO DAILY [facility] Stop: 04/20/20 17:59 Last Admin: 03/23/20 07:46 Dose: 5 mg Documented by: Magnesium Hydroxide (Magnesium Hydroxide Susp 30 Ml Udc) 30 ml PO Q12H PRN PRN Reason: Constipation Stop: 04/20/20 15:30 Magnesium Oxide (Magnesium Oxide 400 Mg Tab) 400 mg PO QAM [facility] Stop: 04/21/20 08:59 Last Admin: 03/23/20 07:45 Dose: 400 mg Documented by: Miscellaneous (Carbohydrates For Hypoglycemia ) 15 - 30 gm PO UD PRN PRN Reason: Hypoglycemia Protocol Stop: 04/20/20 15:30 Ondansetron HCl (Ondansetron Inj 2 Mg/Ml 2 Ml Vial) 4 mg IV Q6H PRN PRN Reason: Nausea Stop: 04/20/20 15:30 Polyethylene Glycol (Polyethylene (Miralax) 17 Gm Pack) 17 gm PO DAILY PRN PRN Reason: Constipation Stop: 04/20/20 15:30 Thiamine HCl (Thiamine Hcl 100 Mg Tab) 100 mg PO DAILY [facility] Stop: 04/21/20 08:59 Last Admin: 03/23/20 07:47 Dose: 100 mg Documented by: Vitamin D (Cholecalciferol 1,000 Units 25 Mcg Tab) 1,000 units PO DAILY [facility] Stop: 04/21/20 08:59 Last Admin: 03/23/20 07:45 Dose: 1,000 units Documented by:
--- NOTE | 2020-03-24 08:30 | Discharge Summary ---
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 Patient states he was lying in bed when he woke up abruptly with shortness of breath. Symptoms improved when he sat up but did not completely dissipate. Symptoms were worsened with exertion and minimally improved with rest. He also admits to mild increase in swelling to his bila teral lower extremities. He denies similar symptoms in past. He denies any fever, chills, sweats, lightheadedness, dizziness, syncope, chest pain, cough, hemoptysis, palpitations, nausea, vomiting, abdominal pain. He denies any change in appetite. He denies any change in urinary frequency urgency. He denies any known COVID-19 exposures, loss of taste or smell. He does not monitor his weight to know if he has any weight changes. He feels if anything he may have lost weight. has been mentioning he has been looking increasingly bloated in the belly. Due to symptoms he called cardiology to be seen today. He was seen and evaluated by auto body repairman Dr. Calero. I personally spoke with Dr. Calero due to concern for SOB and felt need for acute hospitalization for further work up. Of initial concern is worsening of prosthetic valve stenosis vs chf vs htn urgency. Admission Exam Per Admitting Provider Physical Exam: Constitutional: WD/WN, vitals as above, NAD, sitting up in bed, pleasant, dyspneic with conversation Head: Normocephalic, Atraumatic, erythematous facies Eyes: PERRL, conjunctivae normal, anicteric sclerae ENMT: external ear and nose normal, oropharynx normal Neck: trachea midline, no thyromegaly normal visual inspection Respiratory: tachypnea, Decreased/abs breath sounds R base compared to left, no wheeze, rales, rhonchi. Normal insp/exp effort, no accessory muscle use Cardiovascular: RRR, no murmur, no edema Vessels: no JVD or carotid bruit Chest: normal inspection of chest Abdomen: normal bowel sounds, soft, nontender, no hepatosplenomegaly Musculoskeletal: no cyanosis or clubbing, extremities motor strength 5/5 Skin: no rashes, warm and dry normal turgor Neurologic: PERRL, EOMI, accommodation nl, no face palsy, no dysarthria CN's II-XI intact bilaterally and moves all extremities Psychiatric: A+Ox3, euthymic affect Lymphatic: no cervical or axillary lymphadenopathy : deferred Principal Diagnosis Spontaneous pneumothorax on right side, treated with pigtail catheter, SANDI on CPAP, stable prosthetic aortic valve stenosis, hypertension, type 2 diabetes Discharge Exam Constitutional well developed and well nourished; no acute distress and not ill appearing Eyes PERRL, conjunctivae normal, anicteric sclerae ENMT external ear and nose normal, oropharynx normal Neck trachea midline, no thyromegaly Respiratory normal respiratory effort; no respiratory distress Auscultation: + diminished lung sounds (Diminished breath sounds at the right lung base) Cardiovascular Rate/Rhythm: regular rate and regular rhythm Heart Sounds: no murmur Gastrointestinal (Abdomen) Inspection/Auscultation: abdomen normal to inspection and normal bowel sounds; abdomen not distended Percussion/Palpation: abdomen soft; abdomen nontender Neurologic moves all extremities; no focal motor deficits Lymphatic no cervical or axillary lymphadenopathy Discharge Data Allergies Allergy/AdvReac Type Severity Reaction Status Date / Time felodipine Allergy Intermediate HIVES Verified 03/21/20 15:41 Consultations 03/21/20 17:13 Consult Pulmonology Routine Hospital Course (1) Pneumothorax on right: This is an 79-year-old male who has significant past medical history of T2DM, HTN, HLD, CKD stage III, 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 CXR reveals moderate sized pneumothorax with 6cm pleural separation, no midline shift. No recent trauma, etiology unclear. Appreciate pulmonary input and recommendation Status post pigtail catheter placement on right side on 03/21/2020 Has been feeling a lot better this morning and repeat x-ray did show decrease in the pneumothorax Status post removal of the pigtail catheter this afternoon Repeat x-ray following removal of the catheter did not show any reaccumulation of air Repeat chest x-ray this morning did show only a tiny right basal pneumothorax He denies any symptoms with ambulation Will be discharged this afternoon We will get 2 steps O2 saturation test before discharge (2) Diabetes: Last A1c 6.6 03/08/20 hold glipizide novolog per protocol (3) HTN (hypertension): blood pressure elevated and meets criteria for htn urgeny likely in setting of acute pneumothorax will give home atenolol and lisinopril now and re eval, hold HCTZ Blood pressure is controlled (4) Prosthetic aortic valve stenosis: pt with moderate-severe Prosthetic aortic valve stenosis Last echocardiogram 11/23/2019 EF 60%, grade 2 diastolic dysfunction, mildly enlarged left atrium Patient recommended from cardiology clinic due to acute onset shortness of emerson ath and possible concern for acute CHF Repeat echo of the heart showed: Sinus bradycardia rate of 50/min, LV is normal in size with severe concentric hypertrophy, wall motion is normal, EF 60 to 65%, bioprosthetic aortic valve, borderline severe prosthetic aortic valve stenosis, trace MR, no AMS, aortic root is normal and left atrium is moderately dilated. No significant change with the prior echo We will continue current medications for the heart (5) HLD (hyperlipidemia): continue statin (6) CKD (chronic kidney disease) stage 3, GFR 30-59 ml/min: baseline cr 1.6 monitor renal fxn, avoid nephrotoxic agents (7) SANDI on CPAP: hold CPAP in setting of acute pneumothorax DVT prophylaxis: SCD/TEDS for now in event procedure required Disposition: admit to PCU Follow up: PCP Dr. Edwards upon discharge Will be discharged this afternoon Total Time Total Time Spent Total Time Spent (In Minutes): 35 minutes Total Time Includes: Examination of the Patient, Discharge Planning, Medication Reconciliation and Communication With Other Providers Discharge Plan Discharge Items Patient Disposition: Home - Self-Care Reason For Visit: CHF Discharge Diagnosis: Spontaneous pneumothorax on right side, treated with pigtail catheter, SANDI on CPAP, stable prosthetic aortic valve stenosis, hypertension, type 2 diabetes Condition on Discharge: Good Activity: Resume your previous activity Non-emergency contact: Primary Care Provider Call non-emergency contact if: you have any medication questions and your symptoms worsen Follow-up/Referrals: Nick Edwards MD [Primary Care Provider] - 03/29/20 11:30 am (Your appointment is with Dr. Pedraza. Dr. Edwards is not available) Diet: Carb Consistent or DM2 and Heart Healthy Fluids: 1800ml (7 cups) Addtl Attending Provider Instructions: Please take precaution to avoid falls No change in your medications Pending Studies at Discharge: No Stand-Alone Forms: My [facility], Smoking Cessation Medications and DC Order Prescriptions: Continued aspirin [Adult Low Dose Aspirin] 81 mg tablet,delayed release (DR/EC) 81 mg PO DAILY RF: 0 allopurinol 100 mg tablet 100 mg PO DAILY RF: 0 lisinopril 5 mg tablet 5 mg PO DAILY RF: 0 atorvastatin 40 mg tablet 40 mg PO DAILY RF: 0 glipizide 10 mg tablet 10 mg PO DAILY RF: 0 folic acid 800 mcg tablet 0.8 mg PO DAILY RF: 0 atenolol 50 mg tablet 50 mg PO DAILY RF: 0 hydrochlorothiazide 50 mg tablet 50 mg PO DAILY RF: 0 cholecalciferol (vitamin D3) [Vitamin D3] 25 mcg (1,000 unit) Capsule 25 mcg PO DAILY RF: 0 thiamine HCl (vitamin B1) 100 mg Tablet 100 mg PO DAILY RF: 0 cyanocobalamin (vitamin B-12) 500 mcg Tablet 500 mcg PO DAILY RF: 0 Discharge Orders: Discharge Order (Routine); Ordered 03/23/20 Ordered By: Lori Anderson Admission Data Admit Date/Time: 03/21/20 15:56 Attending Provider: Lori Anderson Admit Provider: Tye Lao Primary Care Provider: Nick Edwards Other Providers: Earl Mao ; Tye Lao Other Interventions: Discharge Summary Assessment (RN) Last Done: 03/23/20 13:59
== END 2020-03-23 14:21 | disposition home or self-care (01) | DRG 200 ==
LOC: SUATTDRO 15:56 → 2E 15:56

== ENCOUNTER 2020-04-27 15:13 | Observation (INO) ==
[2020-04-27] MEDS ORDERED: fentaNYL citrate 100 MCG/2 ML VIAL ONE (15:48)
--- NOTE | 2020-04-27 15:58 | XRay Report ---
XR chest 1V portable HISTORY: 79 years-old Male Dyspnea acute shortness of breath COMPARISON: Chest radiograph 03/23/2020 TECHNIQUE: Portable upright AP view of the chest FINDINGS: Cardiac silhouette is enlarged. Prior median sternotomy. Large right-sided pneumothorax, lateral pleu ral separation of 5.4 cm, apical pleural separation of 8.7 cm with collapse involving the majority of the right lung. Subsegmental left basilar atelectasis. Mild pulmonary vascular congestion is suggest ed. Degenerative changes of the shoulders and spine. IMPRESSION: Large right-sided pneumothorax with right lung collapse. ACT 112: Negative or not required by law. The above report was generated using voice recognition software. It may contain grammatical, syntax o r spelling errors. Electronically signed by: Velasquez Dye M.D. 04/27/2020 3:57 PM
[2020-04-27] MEDS ORDERED: LIDOCAINE HCL 1% 20 ML VIAL ONE (16:11)
--- NOTE | 2020-04-27 16:15 | Electrocardiogram Report ---
Test Reason : Blood Pressure : / mmHG Vent. Rate : 064 BPM Atrial Rate : 064 BPM P-R Int : 000 ms QRS Dur : 086 ms QT Int : 432 ms P-R-T Axes : 000 057 060 degrees QTc Int : 445 ms Probable Sinus rhythm Abnormal ECG When compared with ECG of 20-JUL-2014 18:59, T wave inversion no longer evident in Lateral leads P waves less apparent Confirmed by Roberto Carlos Owens ([id number]) on 04/27/2020 4:15:41 PM Referred By: REFERRED SELF Confirmed By:Roberto Carlos Owens
[2020-04-27 16:18] LABS: Basophils # (auto) 0.02 K/uL (0-0.2); Basophils % (auto) 0.3 %; Eosinophils # (auto) 0.49 K/uL (0-0.5); Eosinophils % (auto) 6.5 %; Hematocrit (blood only) 36.6 % (42-52); Hemoglobin 12.2 g/dL (14.0-18.0); Immature Granulocytes # (auto) 0.02 K/uL (0.00-0.02); Immature Granulocytes % (auto) 0.3 %; Lymphocytes # (auto) 1.37 K/uL (1.2-3.4); Lymphocytes % (auto) 18.1 %; Mean Corpuscular Hemoglobin 31.4 pg (25-34); Mean Corpuscular Hgb Conc 33.3 g/dL (32-36); Mean Corpuscular Volume 94.1 fL (80-100); Mean Platelet Volume 9.6 fL (7.4-10.4); Monocytes # (auto) 0.69 K/uL (0.11-0.59); Monocytes % (auto) 9.1 %; Neutrophils % (auto) 65.7 %; Platelet Count 122 K/uL (130-400); RDW Coefficient of Variation 14.4 % (11.5-14.5); RDW Standard Deviation 48.9 fL (36.4-46.3); Red Blood Count 3.89 M/uL (4.7-6.1); White Blood Count 7.59 K/uL (4.8-10.8)
[2020-04-27 16:25] LABS: Albumin Level 3.1 gm/dl (3.4-5.0); BUN Creatinine Ratio 21.2 (10-20); Calcium 9.1 mg/dl (8.5-10.1); Creatinine Clr Calc Pharmacy 42.6 ml/min; Est GFR (African American) 42.9; Potassium 4.4 mmol/L (3.5-5.1)
[2020-04-27 16:28] LABS: Albumin Globulin Ratio 0.6 (0.9-2); Total Protein 8.1 gm/dl (6.4-8.2)
[2020-04-27 16:29] LABS: INR 1.2 (0.9-1.1); Partial Thromboplastin Ratio 1.1; Prothrombin Time 12.2 Seconds (9.0-12.0)
--- NOTE | 2020-04-27 16:53 | Emergency Department Note ---
History of Present Illness General Chief complaint: Shortness of Breath/Dyspnea Stated complaint: SOB, PNEUMOTHORAX Time Seen by Provider: 04/27/20 15:30 History of Present Illness Provider complaint: Shortness of breath Onset (ago): hour(s) Location: chest Severity: moderate Pain Consistency: + constant Quality: + other (Shortness of breath) Relieved By: + none Associated symptoms: + cough; no chest pain, no fever/chills and no nausea/vomiting This is an 79-year-old male with a history of prior pneumothorax presenting with shortness of breath upon waking up this morning. The patient went to his doctor's office and had an x-ray which showed a large pneumothorax. He was sent here for chest tube placement. He complains of shortness of breath since this morning. It is worse with exertion. He denies any associated chest pain or discomfort. He has had no fevers. He does state he has a mild nonproductive cough which may have caused his pneumothorax. He does state that previously he had a chest tube in several months ago and it was thought that his pneumothorax was from a cough. He has had no abdominal pain, vomiting, diarrhea, urinary symptoms, leg swelling or pain or any recent illness otherwise. He denies any known exposure to COVID-19. He does state that he uses a CPAP machine every night and the last time he had a collapsed lung it was overnight. Home Medications Home Medications Medication Instructions Recorded Confirmed Type aspirin 81 mg tablet,delayed 81 mg PO DAILY 05/19/19 04/27/20 History release allopurinol 100 mg tablet 100 mg PO DAILY 02/24/20 04/27/20 History atenolol 50 mg tablet 50 mg PO DAILY 02/24/20 04/27/20 History atorvastatin 40 mg tablet 40 mg PO DAILY 02/24/20 04/27/20 History folic acid 800 mcg tablet 0.8 mg PO DAILY 02/24/20 04/27/20 History glipizide 10 mg tablet 10 mg PO DAILY 02/24/20 04/27/20 History hydrochlorothiazide 50 mg tablet 50 mg PO DAILY 02/24/20 04/27/20 History lisinopril 5 mg tablet 5 mg PO DAILY 02/24/20 04/27/20 History cholecalciferol (vitamin D3) 25 mcg PO DAILY 03/21/20 04/27/20 History [Vitamin D3] cyanocobalamin (vitamin B-12) 500 mcg PO DAILY 03/21/20 04/27/20 History thiamine HCl (vitamin B1) 100 mg PO DAILY 03/21/20 04/27/20 History Allergies Allergy/AdvReac Type Severity Reaction Status Date / Time felodipine Allergy Intermediate HIVES Verified 04/27/20 18:48 Past Med/Surg History Medical History CKD (chronic kidney disease) stage 3, GFR 30-59 ml/min Diabetes HLD (hyperlipidemia) SANDI on CPAP Psoriasis Steatohepatitis, non-alcoholic Vitamin D deficiency Surgical History History of aortic valve replacement History of colonoscopy History of hernia repair Rupture quadriceps tendon Family History Brother Heart disease CABG 2013 Father , 61 COPD (chronic obstructive pulmonary disease) Social History Smoking Status: Never smoker Hx Alcohol Use: Yes Alcohol type: beer and hard liquor Hx Substance Use: No Preferred Language: Tanzanian 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: Effective Hand Deicer Element Winder Required: No Beliefs That Will Affect Care: None marital status: Current Living Situation: Spouse Feels Safe at Home: Yes Review of Systems See HPI for pertinent positives & negatives. and A total of 10 systems reviewed and were otherwise negative Physical Exam Vital Signs Vital Signs - 24 hr 04/27/20 15:20 04/27/20 15:26 04/27/20 15:27 Temperature 37.2 C Temperature Source Oral Pulse Rate 78 Pulse Rate [Left Finger] Pulse Rhythm Regular Pulse Strength Normal Respiratory Rate 28 H Respiratory Effort / Characteristics Spontaneous Accessory Muscle Use Labored Short of Breath SOB on Exertion Respiratory Depth Retractive Respiratory Pattern Regular Blood Pressure 187/93 H Blood Pressure [Left Arm] Blood Pressure Mean 124 Blood Pressure Mean [Left Arm] Blood Pressure Position Sitting Pulse Oximetry 89 L 100 100 Oxygen Delivery Method Room Air Nasal Cannula Nasal Cannula Oxygen Flow Rate 3 3 3 Sepsis Recent Fever Within 48 Hours No Sepsis New/Unexplained Change in Mental Status No Sepsis Action Taken by Nursing No Action Required Fraction of Inspired Oxygen - Titration 3 Pulse Oximetry Post Tiitration 98 04/27/20 15:55 04/27/20 16:09 04/27/20 16:22 Temperature Temperature Source Pulse Rate Pulse Rate [Left Finger] 71 69 50 L Pulse Rhythm Pulse Strength Respiratory Rate 22 24 16 Respiratory Effort / Characteristics Respiratory Depth Respiratory Pattern Blood Pressure Blood Pressure [Left Arm] 220/89 H 208/81 H 181/103 H Blood Pressure Mean Blood Pressure Mean [Left Arm] 132 123 129 Blood Pressure Position Pulse Oximetry 100 99 100 Oxygen Delivery Method Nasal Cannula Oxymask Oxymask Oxygen Flow Rate 3 5 5 Sepsis Recent Fever Within 48 Hours Sepsis New/Unexplained Change in Mental Status Sepsis Action Taken by Nursing Fraction of Inspired Oxygen - Titration Pulse Oximetry Post Tiitration 04/27/20 16:47 04/27/20 17:17 04/27/20 18:06 Temperature Temperature Source Pulse Rate Pulse Rate [Left Finger] 66 53 L 56 L Pulse Rhythm Pulse Strength Respiratory Rate 16 22 22 Respiratory Effort / Characteristics Respiratory Depth Respiratory Pattern Blood Pressure Blood Pressure [Left Arm] 164/65 H 151/51 H 158/58 H Blood Pressure Mean Blood Pressure Mean [Left Arm] 98 84 91 Blood Pressure Position Pulse Oximetry 96 96 95 Oxygen Delivery Method Room Air Room Air Room Air Oxygen Flow Rate Sepsis Recent Fever Within 48 Hours Sepsis New/Unexplained Change in Mental Status Sepsis Action Taken by Nursing Fraction of Inspired Oxygen - Titration Pulse Oximetry Post Tiitration 04/27/20 19:02 Temperature Temperature Source Pulse Rate Pulse Rate [Left Finger] 71 Pulse Rhythm Pulse Strength Respiratory Rate 22 Respiratory Effort / Characteristics Respiratory Depth Respiratory Pattern Blood Pressure Blood Pressure [Left Arm] 130/44 L Blood Pressure Mean Blood Pressure Mean [Left Arm] 72 Blood Pressure Position Pulse Oximetry 96 Oxygen Delivery Method Room Air Oxygen Flow Rate Sepsis Recent Fever Within 48 Hours Sepsis New/Unexplained Change in Mental Status Sepsis Action Taken by Nursing Fraction of Inspired Oxygen - Titration Pulse Oximetry Post Tiitration Constitutional: Vital signs reviewed. Tachypneic Eyes: Pupils are equal round reactive to light. Conjunctiva are noninjected. ENT: Pharynx is clear without erythema or exudate. Mucous membranes are moist. Neck supple without meningeal signs. Respiratory: Clear to auscultation on the left. No breath sounds on the right side. Cardiovascular: Regular rate and rhythm. No rubs or gallops. GI: Soft, nondistended and nontender. Bowel sounds are present. Musculoskeletal: No peripheral edema. No lower extremity tenderness. Integumentary: No cyanosis. or jaundice. Neurological: The patient is awake and alert. No focal deficits. Psychiatric: Normal affect. Not anxious appearing. Procedures Chest Tube Chest Tube 1: Chest Tube Location: right, mid axillary line and fifth interspace Size of Tube (cm): 32 Chest Tube Prep: Yes betadine prep, sterile drapes applied and other Local Anesthetic: lidocaine 1% Amount of anesthesia used (mL): 12 Incision Made With: #11 blade Post Procedure: sutured to skin and sterile dressing applied Tube Drainage: fluid Amount of initial drainage (mL): 200 Post Procedure CXR?: Yes Patient Tolerated Procedure: Yes Course Administered Medications Discontinued Medications Fentanyl Citrate (Fentanyl Citrate 100 Mcg/2 Ml Vial) Confirm Administered Dose 100 mcg .ROUTE .[employer] ONE Stop: 04/27/20 15:49 Last Increment: 04/27/20 16:01 Dose: 50 mcg Documented by: [id number] Increment: 04/27/20 15:53 Dose: 50 mcg Documented by: [id number] Lidocaine HCl (Lidocaine Hcl 1% 20 Ml Vial) Confirm Administered Dose 20 ml .ROUTE .[employer] ONE Stop: 04/27/20 16:12 Last Admin: 04/27/20 16:49 Dose: 20 ml Documented by: [id number] Critical Care Time Critical Care Time: Yes Total Critical Care Time: 55 I have personally spent approximately 55 minutes of critical care time in the direct management of this patient. This includes bedside care, interpretation of diagnostic studies, and testing, discussion with consultants, patient, and family members, and other required patient management activities. These minutes are in excess of all separately billable procedures. Medical Decision Making Differential Diagnosis Pneumothorax, hemothorax, pleural effusion, blebs, tension pneumothorax Medical Records Attestation: I reviewed the patient's medical records. The patient was admitted in March for a right-sided pneumothorax. He had a pigtail catheter placed at that time. Home Medications Current Medication List: was personally reviewed by me Laboratory Data Attestation: I reviewed the patient's lab results. Result diagrams: 04/27/20 15:22 04/27/20 15:22 Lab Results 04/27/20 04/27/20 04/27/20 Range/Units 15:22 15:22 15:22 WBC 7.59 (4.8-10.8) K/uL RBC 3.89 L (4.7-6.1) M/uL Hgb 12.2 L (14.0-18.0) g/dL Hct 36.6 L (42-52) % MCV 94.1 (80-100) fL MCH 31.4 (25-34) pg MCHC 33.3 (32-36) g/dL RDW Std Deviation 48.9 H (36.4-46.3) fL RDW Coeff of Efe 14.4 (11.5-14.5) % Plt Count 122 L (130-400) K/uL MPV 9.6 (7.4-10.4) fL Immature Gran % (Auto) 0.3 % Neut % (Auto) 65.7 % Lymph % (Auto) 18.1 % [place] % (Auto) 9.1 % Eos % (Auto) 6.5 % Baso % (Auto) 0.3 % Neut # (Auto) 5.00 (1.4-6.5) K/uL Lymph # (Auto) 1.37 (1.2-3.4) K/uL [place] # (Auto) 0.69 H (0.11-0.59) K/uL Eos # (Auto) 0.49 (0-0.5) K/uL Baso # (Auto) 0.02 (0-0.2) K/uL Immature Gran # (Auto) 0.02 (0.00-0.02) K/uL PT 12.2 H (9.0-12.0) Seconds INR 1.2 H (0.9-1.1) APTT 31.0 (21.0-31.0) Seconds PTT Ratio 1.1 Sodium 137 (136-145) mmol/L Potassium 4.4 (3.5-5.1) mmol/L Chloride 104 (98-107) mmol/L Carbon Dioxide 29 (21-32) mmol/L Anion Gap 4.0 (3-11) BUN 36 H (7-18) mg/dl Creatinine 1.70 H (0.6-1.4) mg/dl Est Cr Clr Drug Dosing 42.6 ml/min Est GFR ( Amer) 42.9 Est GFR (Non-Af Amer) 37.0 BUN/Creatinine Ratio 21.2 H (10-20) Glucose 120 H (70-99) mg/dl Calcium 9.1 (8.5-10.1) mg/dl Total Bilirubin 1.0 (0.2-1) mg/dl AST 36 (15-37) U/L ALT 37 (12-78) U/L Alkaline Phosphatase 152 H (45-117) U/L Total Protein 8.1 (6.4-8.2) gm/dl Albumin 3.1 L (3.4-5.0) gm/dl Globulin 5.0 H (2.5-4.0) gm/dl Albumin/Globulin Ratio 0.6 L (0.9-2) Urine Color Urine Appearance (Clear) Urine pH (4.5-7.5) Ur Specific [place] (1.000-1.030) Urine Protein (Negative) Urine Glucose (UA) (Negative) Urine Ketones (Negative) Urine Blood (Negative) Urine Nitrite (Negative) Urine Bilirubin (Negative) Urine Urobilinogen (Negative) Ur Leukocyte Esterase (Negative) Urine WBC (Auto) (0-5) /hpf Urine RBC (Auto) (0-4) /hpf U Hyaline Cast (Auto) (0-5) /lpf U Epithel Cells (Auto) (0-5) /lpf Urine Bacteria (Auto) (Negative) COVID-19 Eval Order SARS-CoV-2, RNA, NAAT (NEGATIVE) 04/27/20 04/27/20 04/27/20 Range/Units 16:40 16:40 16:50 WBC (4.8-10.8) K/uL RBC (4.7-6.1) M/uL Hgb (14.0-18.0) g/dL Hct (42-52) % MCV (80-100) fL MCH (25-34) pg MCHC (32-36) g/dL RDW Std Deviation (36.4-46.3) fL RDW Coeff of Efe (11.5-14.5) % Plt Count (130-400) K/uL MPV (7.4-10.4) fL Immature Gran % (Auto) % Neut % (Auto) % Lymph % (Auto) % [place] % (Auto) % Eos % (Auto) % Baso % (Auto) % Neut # (Auto) (1.4-6.5) K/uL Lymph # (Auto) (1.2-3.4) K/uL [place] # (Auto) (0.11-0.59) K/uL Eos # (Auto) (0-0.5) K/uL Baso # (Auto) (0-0.2) K/uL Immature Gran # (Auto) (0.00-0.02) K/uL PT (9.0-12.0) Seconds INR (0.9-1.1) APTT (21.0-31.0) Seconds PTT Ratio Sodium (136-145) mmol/L Potassium (3.5-5.1) mmol/L Chloride (98-107) mmol/L Carbon Dioxide (21-32) mmol/L Anion Gap (3-11) BUN (7-18) mg/dl Creatinine (0.6-1.4) mg/dl Est Cr Clr Drug Dosing ml/min Est GFR ( Amer) Est GFR (Non-Af Amer) BUN/Creatinine Ratio (10-20) Glucose (70-99) mg/dl Calcium (8.5-10.1) mg/dl Total Bilirubin (0.2-1) mg/dl AST (15-37) U/L ALT (12-78) U/L Alkaline Phosphatase (45-117) U/L Total Protein (6.4-8.2) gm/dl Albumin (3.4-5.0) gm/dl Globulin (2.5-4.0) gm/dl Albumin/Globulin Ratio (0.9-2) Urine Color Yellow Urine Appearance Clear (Clear) Urine pH 5.0 (4.5-7.5) Ur Specific [place] 1.020 (1.000-1.030) Urine Protein Trace H (Negative) Urine Glucose (UA) Negative (Negative) Urine Ketones Negative (Negative) Urine Blood Negative (Negative) Urine Nitrite Negative (Negative) Urine Bilirubin Negative (Negative) Urine Urobilinogen Negative (Negative) Ur Leukocyte Esterase Negative (Negative) Urine WBC (Auto) 1-5 (0-5) /hpf Urine RBC (Auto) 0-4 (0-4) /hpf U Hyaline Cast (Auto) 0 (0-5) /lpf U Epithel Cells (Auto) 10-20 H (0-5) /lpf Urine Bacteria (Auto) Negative (Negative) COVID-19 [facility] SARS-CoV-2, RNA, NAAT NEGATIVE (NEGATIVE) Imaging Data Radiologist's Impression: XR chest 1V portable HISTORY: 79 years-old Male Dyspnea acute shortness of breath COMPARISON: Chest radiograph 03/23/2020 TECHNIQUE: Portable upright AP view of the chest FINDINGS: Cardiac silhouette is enlarged. Prior median sternotomy. Large right-sided pneumothorax, lateral pleural separation of 5.4 cm, apical pleural separation of 8.7 cm with collapse involving the majority of the right lung. Subsegmental left basilar atelectasis. Mild pulmonary vascular congestion is suggested. Degenerative changes of the shoulders and spine. IMPRESSION: Large right-sided pneumothorax with right lung collapse. ACT 112: Negative or not required by law. The above report was generated using voice recognition software. It may contain grammatical, syntax or spelling errors. Electronically signed by: Velasquez Dye M.D. 04/27/2020 3:57 PM XR chest 1V portable HISTORY: s/p chest tube COMPARISON: Chest 04/27/2020. FINDINGS: Interval placement of a right-sided chest tube which terminates in the right midlung zone. Significant decrease in size of the right pneumothorax. There is a small right apical pneumothorax remaining. Focal density within the right midlung zone overlying the chest tube may represent a small amount of residual atelectasis. There are low lung volumes. The heart is mildly enlarged. There are poststernotomy changes. Trace bilateral pleural effusions. IMPRESSION: Interval decrease in size in the small right pneumothorax status post right chest tube placement. ACT 112: Negative or not required by law. Electronically signed by: Mehrdad Sanches M.D. 04/27/2020 4:55 PM ECG Data Attestation: I personally reviewed and interpreted this ECG as follows: Indication: + SOB/dyspnea Rate (beats per minute): 64 Rhythm: + normal sinus ECG [place]: + Normal ECG ST segments: no ST elevation ECG Findings: no PVCs MDM Narrative I was called emergently into the room by the nurse. I did evaluate the patient as noted above. He is short of breath and has diminished breath sounds on the right side. I did order and personally reviewed the images of the patient's chest x-ray as described above. He has a very large right-sided pneumothorax with right lung collapse. IV access was established. I did place an order for continuous cardiac monitoring. The monitor showed normal sinus rhythm with a rate of 72. After obtaining informed consent from the patient I did place a chest tube as described above. He was given fentanyl 100 mcg prior to the procedure IV. He tolerated procedure well. There were no complications. 200 cc of blood-tinged serous fluid was drained. Breath sounds are now equal. A repeat chest x-ray was obtained. He has reinflation of the right lung with chest tube in place. I did order and personally review the patient's 12-lead EKG as described above. He has no evidence of acute ischemia. I did order and review the patient's blood work as noted in the electronic medical record. He has mild anemia and thrombocytopenia. Creatinine is 1.7 which is slightly above baseline for him. Rapid Covid testing was negative. I did discuss case with the ICU attending. Dr. Méndez requested that the patient be transferred to a tertiary care center for possible pleurodesis. I did discuss this with the patient. He did consent to transfer. I did speak to the cardiothoracic surgeon at [facility] who accepted the patient. Unfortunately they were no beds available until tomorrow and they request that he be kept in this hospital until tomorrow. I did speak to the business case analyst who stated that [facility] was the only hospital he could be transferred to based on his insurance without incurring further cost. The patient did not wish to be transferred out of network. I therefore discussed the case with the hospitalist and business case analyst. He remained hemodynamically stable in the ED. He is breathing much better after chest tube placement. Impression & Plan Pneumothorax on right, Anemia, Thrombocytopenia, CKD (chronic kidney disease) Discharge Plan Visit Data Chief Complaint: Shortness of Breath/Dyspnea Stated Complaint: SOB, PNEUMOTHORAX ED Provider: Eh Mcmillan Discharge Problem: Pneumothorax on right, Anemia, Thrombocytopenia, CKD (chronic kidney disease) Discharge Instructions Interventions: ED Discharge Assessment Last Done: 04/27/20 19:03
--- NOTE | 2020-04-27 16:56 | XRay Report ---
XR chest 1V portable HISTORY: s/p chest tube COMPARISON: Chest 04/27/2020. FINDINGS: Interval placement of a right-sided chest tube which terminates in the right midlung zone. Significant decrease in size of the right pneumothorax. There is a small right apical pneumothorax re maining. Focal density within the right midlung zone overlying the chest tube may represent a small a mount of residual atelectasis. There are low lung volumes. The heart is mildly enlarged. There are po ststernotomy changes. Trace bilateral pleural effusions. IMPRESSION: Interval decrease in size in the small right pneumothorax status post right chest tube placement. ACT 112: Negative or not required by law. Electronically signed by: Mehrdad Sanches M.D. 04/27/2020 4:55 PM
[2020-04-27 17:03] LABS: Appearance Urine Clear (Clear); Bacteria Urine Automated Negative (Negative); Bilirubin Urine Negative (Negative); Blood Urine Negative (Negative); Cast Urine Automated 0 /lpf (0-5); Color Urine Yellow; Glucose Urine UA Negative (Negative); Ketones Urine Negative (Negative); Leukocyte Esterase Urine Negative (Negative); Nitrite Urine Negative (Negative); Protein Urine Trace (Negative); RBC Urine Automated 0-4 /hpf (0-4); Urobilinogen Urine Negative (Negative)
[2020-04-27] MEDS ORDERED: GLUCOSE 40% GEL 15 GM TUBE PO PRN (19:39)
[2020-04-27] MEDS ORDERED: GLUCOSE 10 TABS/TUBE PO PRN (19:39)
[2020-04-27] MEDS ORDERED: CARBOHYDRATES FOR HYPOGLYCEMIA PO PRN (19:39)
[2020-04-27] MEDS ORDERED: DEXTROSE 50% 50 ML SYRINGE IV PRN (19:39)
[2020-04-27] MEDS ORDERED: GLUCAGON FOR INJ 1 MG VIAL SQ PRN (19:39)
[2020-04-27] MEDS ORDERED: ICU PROTOCOL FOR HYPERGLYCEMIA PRN (19:39)
--- NOTE | 2020-04-27 19:57 | History & Physical Report ---
Date of Service April 27, 2020 Assessment & Plan (1) Pneumothorax on right: 79-year-old male with history of diabetes, hypertension, CKD stage III, status post aortic valve placement, obstructive sleep apnea Presenting with recurrence of pneumothorax, right lung. Right-sided pneumothorax Second episode Was discharged last March 22, 2024 right-sided pneumothorax, status post pigtail placement, unclear etiology at that time Status post chest tube placement at the ER today with resolution of the thorax per chest x-ray Room air, saturating 96%, comfortable Discussed with electroslag welding machine operator Dr. Pruitt Chest tube setting -20 cm water Repeat chest x-ray in the morning No CPAP, oxygen via nasal cannula at night and as needed N.p.o. post midnight Plan to transfer to [facility] when bed is available Lower extremity edema Doppler ultrasound ordered to rule out DVT: Pending Diabetes type 2 Hold glipizide Insulin sliding scale for now Hypertension Continue lisinopril, atenolol, HCTZ Hold aspirin CKD stage III Creatinine at baseline Status post bioprosthetic aortic valve replacement No cardiac symptoms DVT prophylaxis Anticoagulation contraindicated secondary to status post chest tube placement SCDs contraindicated at this time secondary to bilateral lower extremity edema CODE STATUS Full code as per patient Disposition Transfer to [facility] when bed available Plan of care discussed with patient in detail and at length All questions were answered He is understanding, agreeable, comfortable with plan of care Admission and Anticipated Discharge Date Admission Date: April 27, 2020 History of Present Illness 79-year-old male with history of diabetes, hypertension, CKD stage III, status post aortic valve replacement, obstructive sleep apnea Presented with shortness of breath. Patient was discharged last month March 22, 2020 after management of right- sided pneumothorax, unclear etiology, status post pigtail placement. He was doing fine until today when the patient experienced increasing shortness of breath, and was found to have positive pneumothorax by chest x-ray at the PCP office. He was then brought to the ER for further management. At the ER, x-ray revealed a large pneumothorax on the right side. Patient subsequently underwent chest tube placement, with resolution of the pneumothorax confirmed by chest x-ray. Upon ER physician's discussion with electroslag welding machine operator Dr. Cancino, pleurodesis was recommended, but this procedure is not available at our facility, hence recommending transfer to [facility]. Patient already excepted and currently awaiting a bed which would most likely be in the morning. On exam, the patient is awake, alert, comfortable, saturating well on room air. He states that he feels much better, denies active shortness of breath. No chest pain, dizziness, headache, abdominal pain, nausea vomiting, leg pain. Denies other symptoms Primary Care Provider: Nick Edwards MD Allergies Allergy/AdvReac Type Severity Reaction Status Date / Time felodipine Allergy Intermediate HIVES Verified 04/27/20 18:48 Home Medications Home Medications Medication Instructions Recorded Confirmed Type aspirin 81 mg tablet,delayed 81 mg PO DAILY 05/19/19 04/27/20 History release allopurinol 100 mg tablet 100 mg PO DAILY 02/24/20 04/27/20 History atenolol 50 mg tablet 50 mg PO DAILY 02/24/20 04/27/20 History atorvastatin 40 mg tablet 40 mg PO DAILY 02/24/20 04/27/20 History folic acid 800 mcg tablet 0.8 mg PO DAILY 02/24/20 04/27/20 History glipizide 10 mg tablet 10 mg PO DAILY 02/24/20 04/27/20 History hydrochlorothiazide 50 mg tablet 50 mg PO DAILY 02/24/20 04/27/20 History lisinopril 5 mg tablet 5 mg PO DAILY 02/24/20 04/27/20 History cholecalciferol (vitamin D3) 25 mcg PO DAILY 03/21/20 04/27/20 History [Vitamin D3] cyanocobalamin (vitamin B-12) 500 mcg PO DAILY 03/21/20 04/27/20 History thiamine HCl (vitamin B1) 100 mg PO DAILY 03/21/20 04/27/20 History Past Med/Surg History Medical History CKD (chronic kidney disease) stage 3, GFR 30-59 ml/min Diabetes HLD (hyperlipidemia) SANDI on CPAP Psoriasis Steatohepatitis, non-alcoholic Vitamin D deficiency Surgical History History of aortic valve replacement History of colonoscopy History of hernia repair Rupture quadriceps tendon Family History Brother Heart disease CABG 2014 Father , 61 COPD (chronic obstructive pulmonary disease) Social History Smoking Status: Never smoker Hx Alcohol Use: Yes Alcohol type: beer and hard liquor Hx Substance Use: No Preferred Language: Kosovan 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: Effective 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: No Beliefs That Will Affect Care: None marital status: Current Living Situation: Spouse Feels Safe at Home: Yes Review of Systems Review of Systems: All systems reviewed & are unremarkable except as noted in Subjective Physical Exam Physical Exam: General- oriented x 3, not in distress, speaks in sentences with no effort or accessory muscle use Head- atraumatic Eyes- PERRL, EOMI, anicteric ENT- oropharynx clear Neck- supple, no JVD, no adenopathy, no thyromegaly; carotids +2/2, no bruits appreciated Lungs-positive good air entry bilaterally, clear breath bilaterally, no crackles or wheezing Chest tube in place right lateral chest wall Heart- normal rate, regular rhythm; no murmur, no gallop, no rub appreciated Abdomen- normal bowel sounds, nondistended, soft, nontender, no masses or hepatosplenomegaly Extremities-mild lower leg edema-right greater than left, no erythema/warmth/tenderness; peripheral pulses intact Neuro- alert, oriented x 3; CN 2-12 grossly intact; motor 5/5 bilaterally;sensation 100% on all extremities; no other gross focal neurologic deficits Skin- warm & dry Results & Data Results & Data ([facility]) Vital Signs (Past 12 Hours) Vital Signs Temp Pulse Pulse Resp BP BP Pulse Ox 04/27/20 19:02 71 22 130/44 L 96 04/27/20 18:06 56 L 22 158/58 H 95 04/27/20 17:17 53 L 22 151/51 H 96 04/27/20 16:47 66 16 164/65 H 96 04/27/20 16:22 50 L 16 181/103 H 100 04/27/20 16:09 69 24 208/81 H 99 04/27/20 15:55 71 22 220/89 H 100 04/27/20 15:27 100 04/27/20 15:26 100 04/27/20 15:20 37.2 C 78 28 H 187/93 H 89 L Laboratory Results Laboratory Results - last 24 hr 04/27/20 04/27/20 04/27/20 15:22 15:22 15:22 WBC 7.59 RBC 3.89 L Hgb 12.2 L Hct 36.6 L MCV 94.1 MCH 31.4 MCHC 33.3 RDW Std Deviation 48.9 H RDW Coeff of Efe 14.4 Plt Count 122 L MPV 9.6 Immature Gran % (Auto) 0.3 Neut % (Auto) 65.7 Lymph % (Auto) 18.1 Craven % (Auto) 9.1 Eos % (Auto) 6.5 Baso % (Auto) 0.3 Neut # (Auto) 5.00 Lymph # (Auto) 1.37 Craven # (Auto) 0.69 H Eos # (Auto) 0.49 Baso # (Auto) 0.02 Immature Gran # (Auto) 0.02 PT 12.2 H INR 1.2 H APTT 31.0 PTT Ratio 1.1 Sodium 137 Potassium 4.4 Chloride 104 Carbon Dioxide 29 Anion Gap 4.0 BUN 36 H Creatinine 1.70 H Est Cr Clr Drug Dosing 42.6 Est GFR ( Amer) 42.9 Est GFR (Non-Af Amer) 37.0 BUN/Creatinine Ratio 21.2 H Glucose 120 H Calcium 9.1 Total Bilirubin 1.0 AST 36 ALT 37 Alkaline Phosphatase 152 H Total Protein 8.1 Albumin 3.1 L Globulin 5.0 H Albumin/Globulin Ratio 0.6 L Urine Color Urine Appearance Urine pH Ur Specific [place] Urine Protein Urine Glucose (UA) Urine Ketones Urine Blood Urine Nitrite Urine Bilirubin Urine Urobilinogen Ur Leukocyte Esterase Urine WBC (Auto) Urine RBC (Auto) U Hyaline Cast (Auto) U Epithel Cells (Auto) Urine Bacteria (Auto) COVID-19 Eval Order SARS-CoV-2, RNA, NAAT 04/27/20 04/27/20 04/27/20 16:40 16:40 16:50 WBC RBC Hgb Hct MCV MCH MCHC RDW Std Deviation RDW Coeff of Efe Plt Count MPV Immature Gran % (Auto) Neut % (Auto) Lymph % (Auto) [place] % (Auto) Eos % (Auto) Baso % (Auto) Neut # (Auto) Lymph # (Auto) [place]ven # (Auto) Eos # (Auto) Baso # (Auto) Immature Gran # (Auto) PT INR APTT PTT Ratio Sodium Potassium Chloride Carbon Dioxide Anion Gap BUN Creatinine Est Cr Clr Drug Dosing Est GFR ( Amer) Est GFR (Non-Af Amer) BUN/Creatinine Ratio Glucose Calcium Total Bilirubin AST ALT Alkaline Phosphatase Total Protein Albumin Globulin Albumin/Globulin Ratio Urine Color Yellow Urine Appearance Clear Urine pH 5.0 Ur Specific [place] 1.020 Urine Protein Trace H Urine Glucose (UA) Negative Urine Ketones Negative Urine Blood Negative Urine Nitrite Negative Urine Bilirubin Negative Urine Urobilinogen Negative Ur Leukocyte Esterase Negative Urine WBC (Auto) 1-5 Urine RBC (Auto) 0-4 U Hyaline Cast (Auto) 0 U Epithel Cells (Auto) 10-20 H Urine Bacteria (Auto) Negative COVID-19 Eval [facility] SARS-CoV-2, RNA, NAAT NEGATIVE Code Status & VTE Plan VTE Prophylaxis Plan VTE Prophylaxis will be ordered: Yes
--- NOTE | 2020-04-27 20:49 | Ultrasound Report ---
BILATERAL LOWER EXTREMITY VENOUS DOPPLER HISTORY: Bilateral LEG EDEMA, R/O DVT COMPARISON STUDY: None. FINDINGS: Linear echogenic foci seen along the periphery of the right mid superficial femoral vein an d left proximal superficial femoral vein suggestive of chronic nonocclusive thrombus. No acute DVT wi thin the right or left lower extremity. IMPRESSION: A few small linear echogenic foci along the periphery of the bilateral superficial femoral veins sugg estive of nonocclusive chronic thrombus. Otherwise, no acute DVT within the right or left lower extre mity. ACT 112: Negative or not required by law. Electronically signed by: Mehrdad Sanches M.D. 04/27/2020 8:47 PM
[2020-04-27] MEDS ORDERED: traMADol HCL 50 MG TABLET PO PRN (21:15)
[2020-04-27] MEDS ORDERED: ACETAMINOPHEN 325 MG TAB PO PRN (21:15)
[2020-04-27] MEDS: INSULIN ASPART 100 UNITS/ML 3 ML PEN SC SCH (21:41)
[2020-04-27] MEDS ORDERED: hydrALAZINE HCL 20 MG/ML VIAL IV PRN (22:26)
--- NOTE | 2020-04-28 07:06 | XRay Report ---
XR chest 1V portable CLINICAL HISTORY: ff up pneumothorax COMPARISON STUDY: Chest radiograph April 27, 2020 at 4:19 PM. FINDINGS: Right chest tube remains in place. A small right apical pneumothorax is noted with superior pleural separation of 6 mm. Pleural line was difficult to visualize on prior exam. There is a small amount of right chest wall gas. Bibasilar opacities favor atelectasis. Cardiomegaly is noted. There a re median sternotomy wires. There is no evidence for pulmonary edema. IMPRESSION: Right chest in place. Small right apical pneumothorax. ACT 112: Negative or not required by law. Electronically signed by: Estuardo George M.D. 04/28/2020 7:05 AM
[2020-04-28] MEDS: INSULIN ASPART 100 UNITS/ML 3 ML PEN SC SCH ×3 (08:12→17:30)
[2020-04-28] MEDS ORDERED: lisinopril 5 MG TAB PO SCH (09:00)
[2020-04-28] MEDS ORDERED: ATORVASTATIN 40 MG TAB PO SCH (09:00)
[2020-04-28] MEDS ORDERED: FOLIC ACID 400 MCG TAB PO SCH (09:00)
[2020-04-28] MEDS ORDERED: ATENOLOL 50 MG TABLET PO SCH (09:00)
[2020-04-28] MEDS ORDERED: CYANOCOBALAMIN 500 MCG TABLET (VITAMIN B-12) PO SCH (09:00)
[2020-04-28] MEDS ORDERED: CHOLECALCIFEROL 1,000 UNITS 25 MCG TAB PO SCH (09:00)
[2020-04-28] MEDS ORDERED: hydroCHLOROthiazide 25 MG TAB PO SCH (09:00)
[2020-04-28] MEDS ORDERED: allopurinoL 100 MG TAB PO SCH (09:00)
[2020-04-28] MEDS ORDERED: THIAMINE HCL 100 MG TAB PO SCH (09:00)
--- NOTE | 2020-04-28 09:43 | Pulmonary Consultation ---
Date of Consultation April 28, 2020 Assessment & Plan (1) Recurrent spontaneous pneumothorax: I am recommending that the patient be transferred to a tertiary level of care where interventional pulmonology and thoracic surgery is available. He will need definitive management of this large recurrent spontaneous pneumothorax. This may involve chemical pleurodesis or mechanical pleurodesis with VATS. We do not have a thoracic surgeon in this institution. Pain control per primary team. Continue suction to -20 cm H2O. There looks to be adequate reexpansion of the lung with minimal apical pneumothorax. (2) Hypoxemia: Likely secondary to his pneumothorax and possibly underlying CHF (3) Sleep apnea with use of continuous positive airway pressure (CPAP): I would recommend avoiding the use of CPAP for the time being during his recovery from the spontaneous pneumothorax (4) Chronic deep vein thrombosis (DVT): Lower extremity ultrasound demonstrated a few small linear echogenic foci along the periphery of the bilateral superficial femoral vein suggestive of nonocclusive chronic thrombus. This will need anticoagulation for 3 months, but I would hold off at this time given the bleeding noted from the chest tube. History of Present Illness Reason for Consultation: Recurrent spontaneous primary pneumothorax Requesting Physician: Hospitalist service Attending Physician: Ayan Vivar MD History of Present Illness 79-year-old male with a past medical history of bioprosthetic aortic valve with severe stenosis and recent right-sided pneumothorax on 03/21/2020 demonstrated with a pigtail chest tube. He returned to the hospital yesterday due to shortness of breath that he experienced around 4 AM on Thursday morning. He had a chest x-ray in his outpatient clinic that demonstrated pneumothorax and was told to go to the ER. He had a surgical 32 Swedish chest tube placed in the ER with good reexpansion of the right lung. He has minimal air leak present today. He did have some bleeding around the chest tube site and there is a small amount of blood noted in the chest tube Pleur-evac. He has some mild pain. Repeat chest x-ray today demonstrates a small apical pneumothorax. He denies any history of smoking. No prior history of pneumothoraces other than the one in March. Does use his CPAP at night. He notes he was using CPAP after his recent pneumothorax. He denies any nausea or vomiting, fevers or chills. Allergies Allergy/AdvReac Type Severity Reaction Status Date / Time felodipine Allergy Intermediate HIVES Verified 04/27/20 18:48 Home Medications Home Medications Medication Instructions Recorded Confirmed Type aspirin 81 mg tablet,delayed 81 mg PO DAILY 05/19/19 04/27/20 History release allopurinol 100 mg tablet 100 mg PO DAILY 02/24/20 04/27/20 History atenolol 50 mg tablet 50 mg PO DAILY 02/24/20 04/27/20 History atorvastatin 40 mg tablet 40 mg PO DAILY 02/24/20 04/27/20 History folic acid 800 mcg tablet 0.8 mg PO DAILY 02/24/20 04/27/20 History glipizide 10 mg tablet 10 mg PO DAILY 02/24/20 04/27/20 History hydrochlorothiazide 50 mg tablet 50 mg PO DAILY 02/24/20 04/27/20 History lisinopril 5 mg tablet 5 mg PO DAILY 02/24/20 04/27/20 History cholecalciferol (vitamin D3) 25 mcg PO DAILY 03/21/20 04/27/20 History [Vitamin D3] cyanocobalamin (vitamin B-12) 500 mcg PO DAILY 03/21/20 04/27/20 History thiamine HCl (vitamin B1) 100 mg PO DAILY 03/21/20 04/27/20 History Patient History Medical History CKD (chronic kidney disease) stage 3, GFR 30-59 ml/min Diabetes HLD (hyperlipidemia) SANDI on CPAP Psoriasis Steatohepatitis, non-alcoholic Vitamin D deficiency Surgical History History of aortic valve replacement History of colonoscopy History of hernia repair Rupture quadriceps tendon Family History Brother Heart disease CABG 2014 Father , 61 COPD (chronic obstructive pulmonary disease) Social History Smoking Status: Never smoker Hx Alcohol Use: Yes Alcohol type: beer and hard liquor Hx Substance Use: No Preferred Language: Slovenian 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: Effective Enrollment Specialist Required: No Beliefs That Will Affect Care: None marital status: Current Living Situation: Spouse Other Information That Helps Us Care for You: No Feels Safe at Home: Yes Safety Concerns: Feels Safe At This Time Review of Systems Review of Systems: All systems reviewed & are unremarkable except as noted in HPI & below Physical Exam Constitutional: WD/WN, vitals as above Eyes: PERRL, conjunctivae normal, anicteric sclerae ENMT: external ear and nose normal, oropharynx normal Neck: trachea midline, no thyromegaly Respiratory: Large bore chest tube noted in the right lateral mid axillary line. Cardiovascular: RRR, no murmur, no edema Gastrointestinal (Abdomen): normal bowel sounds, soft, nontender, no hepatosplenomegaly Musculoskeletal: no cyanosis or clubbing, extremities motor strength 5/5 Skin: no rashes, warm and dry Results & Data Results & [facility] ([facility]) Vital Signs (Past 12 Hours) Vital Signs Temp Pulse Pulse Resp BP BP Pulse Ox 04/28/20 08:06 98.1 F 59 L 20 122/51 L 96 04/28/20 06:24 54 L 23 126/54 L 96 04/28/20 06:00 50 L 19 113/48 L 93 04/28/20 05:01 97.9 F 54 L 20 130/49 L 94 04/28/20 05:00 54 L 22 91 04/28/20 04:00 53 L 21 103/46 L 93 04/28/20 03:01 53 L 25 H 109/37 L 92 04/28/20 03:00 52 L 22 04/28/20 02:01 54 L 25 H 148/47 H 94 04/28/20 02:00 54 L 23 93 04/28/20 01:01 54 L 20 120/47 L 94 04/28/20 01:00 56 L 17 90 04/28/20 00:01 57 L 25 H 159/59 H 95 04/28/20 00:00 57 L 21 97 I reviewed his vital signs, labs and imaging PG Care Time/CCT Total # of Minutes Spent Total Time Spent with Patient: Total time spent is greater than 50% in coordination of care (as documented) at patient's floor/unit and/or counseling patient: Coding Level of Care Code 87050 Inpt Consult Level 4 Diagnoses Recurrent spontaneous pneumothorax J93.83 Hypoxemia R09.02 Sleep apnea with use of continuous positive airway pressure (CPAP) G47.30 Chronic deep vein thrombosis (DVT) I82.509
--- NOTE | 2020-04-28 09:57 | Hospitalist Progress Note ---
Date of Service April 28, 2020 Assessment & Plan (1) Pneumothorax on right: 79-year-old male with history of diabetes, hypertension, CKD stage III, status post aortic valve placement, obstructive sleep apnea Presenting with recurrence of pneumothorax, right lung. Right-sided pneumothorax Second episode Was discharged last March 22 right-sided pneumothorax, status post pigtail placement, unclear etiology at that time Status post chest tube placement at the ER (04/27/20) with resolution of the pneumothorax per chest x-ray Room air, saturating 96%, comfortable Discussed with dredging inspector Dr. Pruitt Chest tube setting -20 cm water Repeat chest x-ray this morning 04/28, stable, small apical pneumothorax No CPAP, oxygen via nasal cannula at night and as needed N.p.o. post midnight Plan to transfer to [facility] when bed is available Lower extremity edema Doppler ultrasound ordered to rule out DVT: A few small linear echogenic foci along the periphery of the bilateral superficial femoral veins suggestive of nonocclusive chronic thrombus. Otherwise, no acute DVT within the right or left lower extremity. Would recommend anticoagulation however at this point will have to hold off, due to bleeding from chest tube Diabetes type 2 Hold glipizide Insulin sliding scale for now Hypertension Continue lisinopril, atenolol, HCTZ Hold aspirin CKD stage III Creatinine at baseline Status post bioprosthetic aortic valve replacement No cardiac symptoms DVT prophylaxis Anticoagulation contraindicated secondary to status post chest tube placement CODE STATUS Full code as per patient Disposition: Transfer to [facility] when bed available Plan of care discussed with patient in detail and at length He is understanding, agreeable, comfortable with plan of care Admission and Anticipated Discharge Date Admission Date: April 27, 2020 Subjective Currently patient is lying in bed, in no acute distress. Patient's is at bedside. Right chest tube placed, with some bleeding, again experienced this morning. Patient is overall feeling well, denies any significant shortness of breath, chest pain, palpitations, dizziness, lightheadedness. States he is hungry. Denies any fevers or chills. Review of Systems Review of Systems: All systems reviewed & are unremarkable except as noted in HPI & below Constitutional: no fever and no chills Respiratory: no cough and no dyspnea Cardiovascular: no chest pain and no palpitations Gastrointestinal: no abdominal pain, no nausea and no vomiting Physical Exam Physical Exam: General- oriented x 3, not in distress, speaks in full sentences with no effort or accessory muscle use Head- normocephalic, atraumatic Eyes- PERRL, EOMI, anicteric ENT- oropharynx clear Neck- supple, no JVD, no adenopathy, no thyromegaly; carotids +2/2, no bruits appreciated Lungs- positive good air entry bilaterally, clear breath bilaterally, no crackles or wheezing Chest tube in place right lateral chest wall Heart- normal rate, regular rhythm; no murmur, no gallop, no rub appreciated Abdomen- normal bowel sounds, nondistended, soft, nontender, no masses or hepatosplenomegaly Extremities-mild lower leg edema-right greater than left, no erythema/warmth/tenderness; peripheral pulses intact Neuro- alert, oriented x 3; CN 2-12 grossly intact; motor 5/5 bilaterally;sensation 100% on all extremities; no other gross focal neurologic deficits Skin- warm & dry Results & Data Results & Data ([facility]) Vital Signs (Past 12 Hours) Vital Signs Temp Pulse Pulse Resp BP BP Pulse Ox 04/28/20 08:06 36.7 C 59 L 20 122/51 L 96 04/28/20 06:24 54 L 23 126/54 L 96 04/28/20 06:00 50 L 19 113/48 L 93 04/28/20 05:01 36.6 C 54 L 20 130/49 L 94 04/28/20 05:00 54 L 22 91 04/28/20 04:00 53 L 21 103/46 L 93 04/28/20 03:01 53 L 25 H 109/37 L 92 04/28/20 03:00 52 L 22 04/28/20 02:01 54 L 25 H 148/47 H 94 04/28/20 02:00 54 L 23 93 04/28/20 01:01 54 L 20 120/47 L 94 04/28/20 01:00 56 L 17 90 04/28/20 00:01 57 L 25 H 159/59 H 95 04/28/20 00:00 57 L 21 97 Laboratory Results 04/28/20 04/27/20 04/27/20 Range/Units 07:12 20:41 20:09 WBC (4.8-10.8) K/uL RBC (4.7-6.1) M/uL Hgb (14.0-18.0) g/dL Hct (42-52) % MCV (80-100) fL MCH (25-34) pg MCHC (32-36) g/dL RDW Std Deviation (36.4-46.3) fL RDW Coeff of Efe (11.5-14.5) % Plt Count (130-400) K/uL MPV (7.4-10.4) fL Immature Gran % (Auto) % Neut % (Auto) % Lymph % (Auto) % [place]enton % (Auto) % Eos % (Auto) % Baso % (Auto) % Neut # (Auto) (1.4-6.5) K/uL Lymph # (Auto) (1.2-3.4) K/uL Denton # (Auto) (0.11-0.59) K/uL Eos # (Auto) (0-0.5) K/uL Baso # (Auto) (0-0.2) K/uL Immature Gran # (Auto) (0.00-0.02) K/uL PT (9.0-12.0) Seconds INR (0.9-1.1) APTT (21.0-31.0) Seconds PTT Ratio Sodium (136-145) mmol/L Potassium (3.5-5.1) mmol/L Chloride (98-107) mmol/L Carbon Dioxide (21-32) mmol/L Anion Gap (3-11) BUN (7-18) mg/dl Creatinine (0.6-1.4) mg/dl Est Cr Clr Drug Dosing ml/min Est GFR ( Amer) Est GFR (Non-Af Amer) BUN/Creatinine Ratio (10-20) Glucose (70-99) mg/dl POC Glucose 161 H 149 H (70-99) mg/dl Calcium (8.5-10.1) mg/dl Total Bilirubin (0.2-1) mg/dl AST (15-37) U/L ALT (12-78) U/L Alkaline Phosphatase (45-117) U/L Total Protein (6.4-8.2) gm/dl Albumin (3.4-5.0) gm/dl Globulin (2.5-4.0) gm/dl Albumin/Globulin Ratio (0.9-2) Urine Color Urine Appearance (Clear) Urine pH (4.5-7.5) Ur Specific Townley (1.000-1.030) Urine Protein (Negative) Urine Glucose (UA) (Negative) Urine Ketones (Negative) Urine Blood (Negative) Urine Nitrite (Negative) Urine Bilirubin (Negative) Urine Urobilinogen (Negative) Ur Leukocyte Esterase (Negative) Urine WBC (Auto) (0-5) /hpf Urine RBC (Auto) (0-4) /hpf U Hyaline Cast (Auto) (0-5) /lpf U Epithel Cells (Auto) (0-5) /lpf Urine Bacteria (Auto) (Negative) Nasal Screen MRSA (PCR) Negative (Negative) COVID-19 Eval Order SARS-CoV-2, RNA, NAAT (NEGATIVE) 04/27/20 04/27/20 04/27/20 Range/Units 16:50 16:40 16:40 WBC (4.8-10.8) K/uL RBC (4.7-6.1) M/uL Hgb (14.0-18.0) g/dL Hct (42-52) % MCV (80-100) fL MCH (25-34) pg MCHC (32-36) g/dL RDW Std Deviation (36.4-46.3) fL RDW Coeff of Efe (11.5-14.5) % Plt Count (130-400) K/uL MPV (7.4-10.4) fL Immature Gran % (Auto) % Neut % (Auto) % Lymph % (Auto) % Denton % (Auto) % Eos % (Auto) % Baso % (Auto) % Neut # (Auto) (1.4-6.5) K/uL Lymph # (Auto) (1.2-3.4) K/uL Denton # (Auto) (0.11-0.59) K/uL Eos # (Auto) (0-0.5) K/uL Baso # (Auto) (0-0.2) K/uL Immature Gran # (Auto) (0.00-0.02) K/uL PT (9.0-12.0) Seconds INR (0.9-1.1) APTT (21.0-31.0) Seconds PTT Ratio Sodium (136-145) mmol/L Potassium (3.5-5.1) mmol/L Chloride (98-107) mmol/L Carbon Dioxide (21-32) mmol/L Anion Gap (3-11) BUN (7-18) mg/dl Creatinine (0.6-1.4) mg/dl Est Cr Clr Drug Dosing ml/min Est GFR ( Amer) Est GFR (Non-Af Amer) BUN/Creatinine Ratio (10-20) Glucose (70-99) mg/dl POC Glucose (70-99) mg/dl Calcium (8.5-10.1) mg/dl Total Bilirubin (0.2-1) mg/dl AST (15-37) U/L ALT (12-78) U/L Alkaline Phosphatase (45-117) U/L Total Protein (6.4-8.2) gm/dl Albumin (3.4-5.0) gm/dl Globulin (2.5-4.0) gm/dl Albumin/Globulin Ratio (0.9-2) Urine Color Yellow Urine Appearance Clear (Clear) Urine pH 5.0 (4.5-7.5) Ur Specific Townley 1.020 (1.000-1.030) Urine Protein Trace H (Negative) Urine Glucose (UA) Negative (Negative) Urine Ketones Negative (Negative) Urine Blood Negative (Negative) Urine Nitrite Negative (Negative) Urine Bilirubin Negative (Negative) Urine Urobilinogen Negative (Negative) Ur Leukocyte Esterase Negative (Negative) Urine WBC (Auto) 1-5 (0-5) /hpf Urine RBC (Auto) 0-4 (0-4) /hpf U Hyaline Cast (Auto) 0 (0-5) /lpf U Epithel Cells (Auto) 10-20 H (0-5) /lpf Urine Bacteria (Auto) Negative (Negative) Nasal Screen MRSA (PCR) (Negative) COVID-19 Eval Order Covid19 IDNow [email or web address] SARS-CoV-2, RNA, NAAT NEGATIVE (NEGATIVE) 04/27/20 04/27/20 04/27/20 Range/Units 15:22 15:22 15:22 WBC 7.59 (4.8-10.8) K/uL RBC 3.89 L (4.7-6.1) M/uL Hgb 12.2 L (14.0-18.0) g/dL Hct 36.6 L (42-52) % MCV 94.1 (80-100) fL MCH 31.4 (25-34) pg MCHC 33.3 (32-36) g/dL RDW Std Deviation 48.9 H (36.4-46.3) fL RDW Coeff of Efe 14.4 (11.5-14.5) % Plt Count 122 L (130-400) K/uL MPV 9.6 (7.4-10.4) fL Immature Gran % (Auto) 0.3 % Neut % (Auto) 65.7 % Lymph % (Auto) 18.1 % Denton % (Auto) 9.1 % Eos % (Auto) 6.5 % Baso % (Auto) 0.3 % Neut # (Auto) 5.00 (1.4-6.5) K/uL Lymph # (Auto) 1.37 (1.2-3.4) K/uL Denton # (Auto) 0.69 H (0.11-0.59) K/uL Eos # (Auto) 0.49 (0-0.5) K/uL Baso # (Auto) 0.02 (0-0.2) K/uL Immature Gran # (Auto) 0.02 (0.00-0.02) K/uL PT 12.2 H (9.0-12.0) Seconds INR 1.2 H (0.9-1.1) APTT 31.0 (21.0-31.0) Seconds PTT Ratio 1.1 Sodium 137 (136-145) mmol/L Potassium 4.4 (3.5-5.1) mmol/L Chloride 104 (98-107) mmol/L Carbon Dioxide 29 (21-32) mmol/L Anion Gap 4.0 (3-11) BUN 36 H (7-18) mg/dl Creatinine 1.70 H (0.6-1.4) mg/dl Est Cr Clr Drug Dosing 42.6 ml/min Est GFR ( Amer) 42.9 Est GFR (Non-Af Amer) 37.0 BUN/Creatinine Ratio 21.2 H (10-20) Glucose 120 H (70-99) mg/dl POC Glucose (70-99) mg/dl Calcium 9.1 (8.5-10.1) mg/dl Total Bilirubin 1.0 (0.2-1) mg/dl AST 36 (15-37) U/L ALT 37 (12-78) U/L Alkaline Phosphatase 152 H (45-117) U/L Total Protein 8.1 (6.4-8.2) gm/dl Albumin 3.1 L (3.4-5.0) gm/dl Globulin 5.0 H (2.5-4.0) gm/dl Albumin/Globulin Ratio 0.6 L (0.9-2) Urine Color Urine Appearance (Clear) Urine pH (4.5-7.5) Ur Specific Townley (1.000-1.030) Urine Protein (Negative) Urine Glucose (UA) (Negative) Urine Ketones (Negative) Urine Blood (Negative) Urine Nitrite (Negative) Urine Bilirubin (Negative) Urine Urobilinogen (Negative) Ur Leukocyte Esterase (Negative) Urine WBC (Auto) (0-5) /hpf Urine RBC (Auto) (0-4) /hpf U Hyaline Cast (Auto) (0-5) /lpf U Epithel Cells (Auto) (0-5) /lpf Urine Bacteria (Auto) (Negative) Nasal Screen MRSA (PCR) (Negative) COVID-19 Eval Order SARS-CoV-2, RNA, NAAT (NEGATIVE) Medications Administered Current Inpatient Medications Acetaminophen (Acetaminophen 325 Mg Tab) 650 mg PO Q4H PRN PRN Reason: pain/fever Stop: 05/27/20 21:14 Allopurinol (Allopurinol 100 Mg Tab) 100 mg PO DAILY KETAN Stop: 05/28/20 08:59 Last Admin: 04/28/20 08:19 Dose: 100 mg Documented by: Atenolol (Atenolol 50 Mg Tablet) 50 mg PO DAILY KETAN Stop: 05/28/20 08:59 Last Admin: 04/28/20 08:18 Dose: 50 mg Documented by: Atorvastatin Calcium (Atorvastatin 40 Mg Tab) 40 mg PO DAILY KETAN Stop: 05/28/20 08:59 Last Admin: 04/28/20 08:18 Dose: 40 mg Documented by: Cyanocobalamin (Cyanocobalamin 500 Mcg Tablet (Vitamin B-12)) 500 mcg PO DAILY KETAN Stop: 05/28/20 08:59 Last Admin: 04/28/20 08:18 Dose: Not Given Documented by: Dextrose (Dextrose 50% 50 Ml Syringe) 25 - 50 ml IV UD PRN; Protocol PRN Reason: Hypoglycemia Protocol Stop: 05/27/20 19:38 Folic Acid (Folic Acid 400 Mcg Tab) 800 mcg PO DAILY KETAN Stop: 05/28/20 08:59 Last Admin: 04/28/20 08:17 Dose: Not Given Documented by: Glucagon (Glucagon For Inj 1 Mg Vial) 1 mg SQ UD PRN; Protocol PRN Reason: Hypoglycemia Protocol Stop: 05/27/20 19:38 Glucose (Glucose 10 Tabs/Tube) 4 - 8 tabs PO UD PRN; Protocol PRN Reason: Hypoglycemia Protocol Stop: 05/27/20 19:38 Glucose (Glucose 40% Gel 15 Gm Tube) 15 - 30 gm PO UD PRN; Protocol PRN Reason: Hypoglycemia Protocol Stop: 05/27/20 19:38 Hydralazine HCl (Hydralazine Hcl 20 Mg/Ml Vial) 10 mg IV Q6H PRN PRN Reason: hypertension Stop: 05/27/20 22:29 Hydrochlorothiazide (Hydrochlorothiazide 25 Mg Tab) 50 mg PO DAILY KETAN Stop: 05/28/20 08:59 Last Admin: 04/28/20 08:17 Dose: 50 mg Documented by: Insulin Aspart (Insulin Aspart 100 Units/Ml 3 Ml Pen) 0 units SC ACHS KETAN Stop: 05/27/20 20:59 Last Admin: 04/28/20 08:12 Dose: Not Given Documented by: Lisinopril (Lisinopril 5 Mg Tab) 5 mg PO DAILY KETAN Stop: 05/28/20 08:59 Last Admin: 04/28/20 08:18 Dose: 5 mg Documented by: Miscellaneous (Carbohydrates For Hypoglycemia ) 15 - 30 gm PO UD PRN PRN Reason: Hypoglycemia Protocol Stop: 05/27/20 19:38 Miscellaneous (Icu Protocol For Hyperglycemia) 1 ea N/A PRN PRN; Protocol PRN Reason: Hyperglycemia Protocol Stop: 04/29/20 19:38 Thiamine HCl (Thiamine Hcl 100 Mg Tab) 100 mg PO DAILY KETAN Stop: 05/28/20 08:59 Last Admin: 04/28/20 08:18 Dose: Not Given Documented by: Tramadol HCl (Tramadol Hcl 50 Mg Tablet) 50 mg PO Q6H PRN PRN Reason: Pain Stop: 05/27/20 21:14 Last Admin: 04/27/20 21:39 Dose: 50 mg Documented by: Vitamin D (Cholecalciferol 1,000 Units 25 Mcg Tab) 1,000 units PO DAILY KETAN Stop: 05/28/20 08:59 Last Admin: 04/28/20 08:18 Dose: Not Given Documented by:
--- NOTE | 2020-04-28 17:16 | Discharge Summary ---
Date of Service April 28, 2020 Admission HPI Per Admitting Provider 79-year-old male with history of diabetes, hypertension, CKD stage III, status post aortic valve replacement, obstructive sleep apnea Presented with shortness of breath. Patient was discharged last month March 22, 2020 after management of right- sided pneumothorax, unclear etiology, status post pigtail placement. He was doing fine until today when the patient experienced increasing shortness of breath, and was found to have positive pneumothorax by chest x-ray at the PCP office. He was then brought to the ER for further management. At the ER, x-ray revealed a large pneumothorax on the right side. Patient subsequently underwent chest tube placement, with resolution of the pneumothorax confirmed by chest x-ray. Upon ER physician's discussion with collections analyst Dr. Cancino, pleurodesis was recommended, but this procedure is not available at our facility, hence recommending transfer to [facility]. Patient already excepted and currently awaiting a bed which would most likely be in the morning. On exam, the patient is awake, alert, comfortable, saturating well on room air. He states that he feels much better, denies active shortness of breath. No chest pain, dizziness, headache, abdominal pain, nausea vomiting, leg pain. Denies other symptoms Primary Care Provider: Nick Edwards MD Admission Exam Per Admitting Provider General- oriented x 3, not in distress, speaks in sentences with no effort or accessory muscle use Head- atraumatic Eyes- PERRL, EOMI, anicteric ENT- oropharynx clear Neck- supple, no JVD, no adenopathy, no thyromegaly; carotids +2/2, no bruits appreciated Lungs-positive good air entry bilaterally, clear breath bilaterally, no crackles or wheezing Chest tube in place right lateral chest wall Heart- normal rate, regular rhythm; no murmur, no gallop, no rub appreciated Abdomen- normal bowel sounds, nondistended, soft, nontender, no masses or hepatosplenomegaly Extremities-mild lower leg edema-right greater than left, no erythema/warmth/tenderness; peripheral pulses intact Neuro- alert, oriented x 3; CN 2-12 grossly intact; motor 5/5 bilaterally;sensation 100% on all extremities; no other gross focal neurologic deficits Skin- warm & dry Principal Diagnosis Recurrent right-sided pneumothorax, status post chest tube placement Discharge Exam General- oriented x 3, not in distress, speaks in full sentences with no effort or accessory muscle use Head- normocephalic, atraumatic Eyes- PERRL, EOMI, anicteric ENT- oropharynx clear Neck- supple, no JVD, no adenopathy, no thyromegaly; carotids +2/2, no bruits appreciated Lungs- positive good air entry bilaterally, clear breath bilaterally, no crackles or wheezing Chest tube in place right lateral chest wall Heart- normal rate, regular rhythm; no murmur, no gallop, no rub appreciated Abdomen- normal bowel sounds, nondistended, soft, nontender, no masses or hepatosplenomegaly Extremities-mild lower leg edema-right greater than left, no erythema/warmth/tenderness; peripheral pulses intact Neuro- alert, oriented x 3; CN 2-12 grossly intact; motor 5/5 bilaterally;sensation 100% on all extremities; no other gross focal neurologic deficits Skin- warm & dry Discharge Data Allergies Allergy/AdvReac Type Severity Reaction Status Date / Time felodipine Allergy Intermediate HIVES Verified 04/27/20 18:48 Consultations 04/27/20 19:39 Consult Case Management - Discharge Planning Routine Consult Dough Sheeter Routine Consult Pulmonology Routine Ordered Studies 04/27/20 19:39 US venous doppler LE BI Stat IMPRESSION: A few small linear echogenic foci along the periphery of the bilateral superficial femoral veins suggestive of nonocclusive chronic thrombus. Otherwise, no acute DVT within the right or left lower extremity. CXR 04/27/2020 IMPRESSION: Large right-sided pneumothorax with right lung collapse. CXR 04/28/2020 IMPRESSION: Right chest in place. Small right apical pneumothorax. Hospital Course (1) Pneumothorax on right: 79-year-old male with history of diabetes, hypertension, CKD stage III, status post aortic valve placement, obstructive sleep apnea Presenting with recurrence of pneumothorax, right lung. Right-sided pneumothorax Second episode Was discharged last March 22 right-sided pneumothorax, status post pigtail placement, unclear etiology at that time Status post chest tube placement at the ER (04/27/20) with resolution of the pneumothorax per chest x-ray Room air, saturating 96%, comfortable Discussed with collections analyst Dr. Pruitt, recommend pleurodesis, interventional pulmonology/CT surgery. CT surgeon at [facility] accepted the patient for transfer. Chest tube setting -20 cm water Repeat chest x-ray this morning 04/28, stable, small apical pneumothorax No CPAP, oxygen via nasal cannula at night and as needed Plan to transfer to [facility] when bed is available Lower extremity edema Doppler ultrasound ordered to rule out DVT: A few small linear echogenic foci along the periphery of the bilateral superficial femoral veins suggestive of nonocclusive chronic thrombus. Otherwise, no acute DVT within the right or left lower extremity. Would recommend anticoagulation however at this point will have to hold off, due to bleeding from chest tube Diabetes type 2 Hold glipizide Insulin sliding scale for now Hypertension Continue lisinopril, atenolol, HCTZ Hold aspirin CKD stage III Creatinine at baseline Status post bioprosthetic aortic valve replacement No cardiac symptoms DVT prophylaxis Anticoagulation contraindicated secondary to status post chest tube placement CODE STATUS Full code as per patient Disposition: Transfer to [facility] when bed available Plan of care discussed with patient in detail and at length He is understanding, agreeable, comfortable with plan of care Total Time Total Time Spent Total Time Spent (In Minutes): 35 Total Time Includes: Examination of the Patient, Discharge Planning, Medication Reconciliation and Communication With Other Providers Discharge Plan Discharge Items Patient Disposition: Transfer Acute Care Hospital Reason For Visit: PNEUMOTHORAX, S/P CHEST TUBE PLACEMENT Discharge Diagnosis: Recurrent right-sided pneumothorax, status post chest tube placement Activity: Per Instructions section Non-emergency contact: Surgeon and Specialist Call non-emergency contact if: you have any medication questions and your symptoms worsen Follow-up/Referrals: Nick dEwards MD [Primary Care Provider] - Diet: Carb Consistent or DM2 and Heart Healthy Addtl Attending Provider Instructions: Patient presents with recurrent right-sided pneumothorax, now status post chest tube placement. Given recurrence, pleurodesis recommended, patient in need of evaluation by interventional pulmonology and cardiothoracic surgery. CT surgeon at [facility] accepted the patient when discussed with ED physician on April 27, 2020. Bed was not available, at that time. Plan to transfer the patient to [facility] when bed available. Pending Studies at Discharge: No Stand-Alone Forms: [employer] Skilled Items Patient informed of condition?: Yes DNR: No Discharge Level of Care: Other Communicable Disease: No Discharge Prognosis: Other Lines: Peripheral IV Urinary Catheter: No Medications and DC Order Prescriptions: Continued aspirin [Adult Low Dose Aspirin] 81 mg tablet,delayed release (DR/EC) 81 mg PO DAILY RF: 0 allopurinol 100 mg tablet 100 mg PO DAILY RF: 0 lisinopril 5 mg tablet 5 mg PO DAILY RF: 0 atorvastatin 40 mg tablet 40 mg PO DAILY RF: 0 glipizide 10 mg tablet 10 mg PO DAILY RF: 0 folic acid 800 mcg tablet 0.8 mg PO DAILY RF: 0 atenolol 50 mg tablet 50 mg PO DAILY RF: 0 hydrochlorothiazide 50 mg tablet 50 mg PO DAILY RF: 0 cholecalciferol (vitamin D3) [Vitamin D3] 25 mcg (1,000 unit) Capsule 25 mcg PO DAILY RF: 0 thiamine HCl (vitamin B1) 100 mg Tablet 100 mg PO DAILY RF: 0 cyanocobalamin (vitamin B-12) 500 mcg Tablet 500 mcg PO DAILY RF: 0 Discharge Orders: Discharge Order (Routine); Ordered 04/28/20 Ordered By: Ayan Vivar Admission Data Admit Date/Time: 04/27/20 18:06 Attending Provider: Ayan Vivar Admit Provider: Joel Nelson Primary Care Provider: Nick Edwards Other Providers: Renny Pruitt ; Joel Nelson
== END 2020-04-28 20:10 | disposition short-term general hospital (02) | DRG 200 ==
LOC: ED 15:13 → SUATTDRO 18:06 → INTOOBSV 18:06 → 1E 18:06

== ENCOUNTER 2022-05-26 13:51 | Inpatient (IN) ==
[2022-05-26 14:21] LABS: Basophils # (auto) 0.05 K/uL (0-0.2); Basophils % (auto) 0.6 %; Eosinophils # (auto) 0.31 K/uL (0-0.50); Eosinophils % (auto) 3.9 %; Hematocrit (blood only) 36.6 % (40.1-51.0); Hemoglobin 11.8 g/dl (14.0-18.0); Immature Granulocytes # (auto) 0.03 K/uL (0.00-0.02); Immature Granulocytes % (auto) 0.4 %; Lymphocytes # (auto) 1.78 K/uL (1.2-3.4); Lymphocytes % (auto) 22.6 %; Mean Corpuscular Hemoglobin 30.5 pg (25.0-34.0); Mean Corpuscular Hgb Conc 32.2 g/dL (32.0-36.0); Mean Corpuscular Volume 94.6 fL (80.0-100.0); Mean Platelet Volume 9.2 fL (9.4-12.4); Monocytes % (auto) 7.6 %; Neutrophils % (auto) 64.9 %; Platelet Count 108 K/uL (130-400); RDW Coefficient of Variation 14.2 % (11.5-14.5); RDW Standard Deviation 48.8 fL (36.4-46.3); Red Blood Count 3.87 M/uL (4.63-6.08); White Blood Count 7.87 K/ul (4.8-10.8)
[2022-05-26 14:51] LABS: BUN Creatinine Ratio 37.3 (10-20); Bilirubin,Total 0.9 mg/dl (0.2-1.0); Calcium 9.6 mg/dl (8.5-10.1); Creatinine Clr Calc Pharmacy 21.6 ml/min; Est GFR (African American) 20.4 ml/min; Est GFR (Non-African American) 17.6 ml/min; Globulin 3.9 gm/dl (2.5-4.0); Potassium 6.7 mmol/L (3.5-5.1); Total Protein 7.9 gm/dl (6.0-8.3)
[2022-05-26] MEDS ORDERED: SODIUM CHLORIDE 0.9% 1000ML 1,000 ML IV ONE ×3 (14:58→19:38)
[2022-05-26] MEDS ORDERED: CALCIUM GLUCONATE 1,000 MG/60 ML BAG IV STA ×2 (14:58→21:37)
--- NOTE | 2022-05-26 15:53 | Emergency Department Note ---
Impression & Plan CONCEPCION (acute kidney injury), Acute hyperkalemia, Generalized weakness ED Provider Note HISTORY OF PRESENT ILLNESS: Patient is an 81-year-old male presenting for medical evaluation. Patient reports that his doctor called him today and alerted him that he should get to the emergency department as his potassium was elevated and his kidney function was elevated. He states that he has been feeling very weak and rundown over the last few weeks. Denies any chest pain or shortness of breath. He reports multiple episodes of diarrhea over the last few months. Denies any history of hemodialysis. Reports he has been drinking lots of water over the last few days because "I just feel so thirsty.". He reports that he has been making a good amount of urine. Denies any fevers ROS: Constitutional: No fever, chills +weakness Skin: No rash or diaphoresis HENT: No headaches or congestion Eyes: No vision changes Cardio: No chest pain, palpitations or leg swelling Respiratory: No cough, wheezing or shortness of breath GI: No nausea, vomiting, constipation +diarrhea (chronic) : No dysuria, polyuria MSK: No joint or back pain Neuro: No loss of sensation, confusion, focal deficits, numbness, tingling Psychiatric: No mood changes PHYSICAL EXAM: Constitutional: Patient appears in no acute distress. HENT: Head: Normocephalic and atraumatic. Eyes: EOMI, PERRL Mouth/Throat: Mucous membranes moist. Neck: Trachea midline. Neck supple. Cardiovascular: Bradycardic with regular rhythm. No murmurs, rubs or gallops. Intact distal pulses. Pulmonary/Chest: No respiratory distress. Breath sounds clear and equal bilaterally. No wheezes or rales. No chest wall tenderness to palpation. Abdominal: BS +. Abdomen soft, no tenderness, rebound or guarding. Back: No midline spinal tenderness, no paraspinal tenderness, no CVA tenderness. Musculoskeletal: No edema, tenderness or deformity noted. Skin: Warm and dry. No rash, erythema, pallor or cyanosis Psychiatric: Appropriate mood and affect for situation. Neurological: Alert and keenly responsive. CN II-XII grossly intact, moving all extremities equally and fully. MDM: - Vitals signs showed bradycardia. - Laboratory workup showed normal WBC; hyperkalemia (K 6.7); CONCEPCION (Cr 3.11) - CXR negative for acute cardiopulmonary pathology. - EKG negative for acute ischemic changes. Noted to have some peaked T-waves. 1g IV calcium and 1L NS ordered. - Repeat potassium only 6.6. 10 units IV insulin and dextrose ordered. Additional 1L NS ordered. - Hospitalist Dr. Lazo consulted for admission. - Patient admitted to hospitalist service for further evaluation and management. ASSESSMENT AND PLAN: Diagnosis: hyperkalemia; CONCEPCION; generalized weakness Plan: admit Past Med/Surg History Medical History (Updated 05/26/22 @ 19:31 by Rajani Doherty MD) Chronic deep vein thrombosis (DVT) CKD (chronic kidney disease) stage 3, GFR 30-59 ml/min Diabetes HLD (hyperlipidemia) Hypoxemia SANDI on CPAP Psoriasis Recurrent spontaneous pneumothorax Sleep apnea with use of continuous positive airway pressure (CPAP) Steatohepatitis, non-alcoholic Vitamin D deficiency Surgical History History of aortic valve replacement History of colonoscopy History of hernia repair Rupture quadriceps tendon Family History Brother Heart disease CABG 2013 Father , 61 COPD (chronic obstructive pulmonary disease) Social History Smoking Status: Never smoker Hx Alcohol Use: Yes Alcohol type: beer and hard liquor Hx Substance Use: No Preferred Language: Uzbek 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: Effective 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 Beliefs That Will Affect Care: None marital status: Current Living Situation: Spouse Feels Safe at Home: Yes Assistive Devices: None Allergies Allergies Allergy/AdvReac Type Severity Reaction Status Date / Time felodipine Allergy Intermediate HIVES Verified 05/26/22 16:08 Home Meds Home Medications Medication Instructions Recorded Confirmed aspirin 81 mg tablet,delayed 81 mg PO DAILY 05/19/19 05/26/22 release (Adult Low Dose Aspirin) allopurinol 100 mg tablet 100 mg PO DAILY 02/24/20 05/26/22 atenolol 50 mg tablet 25 mg PO DAILY 02/24/20 05/26/22 atorvastatin 40 mg tablet 40 mg PO DAILY 02/24/20 05/26/22 cholecalciferol (vitamin D3) 25 25 mcg PO DAILY 03/21/20 05/26/22 mcg (1,000 unit) capsule (Vitamin D3) cyanocobalamin (vitamin B-12) 500 500 mcg PO DAILY 03/21/20 05/26/22 mcg tablet thiamine HCl (vitamin B1) 100 mg 100 mg PO DAILY 03/21/20 05/26/22 tablet acetaminophen 325 mg capsule 325 mg PO QID PRN Pain 05/26/22 05/26/22 empagliflozin 10 mg tablet 10 mg PO QAM 05/26/22 05/26/22 (Jardiance) folic acid 0.8 mg capsule 0.8 mg PO DAILY 05/26/22 05/26/22 furosemide 20 mg tablet 10 mg PO 3XWK 05/26/22 05/26/22 varicella-zoster glycoE [id number] 0.5 ml IM USEASDIRECTD 05/26/22 05/26/22 adj(PF) 50 mcg/0.5 mL IM susp, kit (Shingrix (PF)) Results & Data (ED) Vital Signs Vital Signs - 24 hr 05/26/22 13:54 05/26/22 15:15 05/26/22 18:17 Temperature 36 C L Temperature Source Oral Pulse Rate 104 H Pulse Rate [Apical] 41 L 55 L Respiratory Rate 18 16 16 Blood Pressure 122/43 L Blood Pressure [Left Arm] 138/55 L 124/44 L Blood Pressure Mean 69 Blood Pressure Mean [Left Arm] 82 70 Pulse Oximetry 95 99 100 Oxygen Delivery Method Room Air Room Air Sepsis Recent Fever Within 48 Hours No Sepsis New/Unexplained Change in Mental Status N/A Sepsis Action Taken by Nursing No Action Required Laboratory Data Result diagrams: 05/26/22 14:15 05/26/22 17:04 Lab Results 05/26/22 05/26/22 05/26/22 Range/Units 14:15 14:15 14:15 WBC 7.87 (4.8-10.8) K/ul RBC 3.87 L (4.63-6.08) M/uL Hgb 11.8 L (14.0-18.0) g/dl Hct 36.6 L (40.1-51.0) % MCV 94.6 (80.0-100.0) fL MCH 30.5 (25.0-34.0) pg MCHC 32.2 (32.0-36.0) g/dL RDW Std Deviation 48.8 H (36.4-46.3) fL RDW Coeff of Efe 14.2 (11.5-14.5) % Plt Count 108 L (130-400) K/uL MPV 9.2 L (9.4-12.4) fL Immature Gran % (Auto) 0.4 % Neut % (Auto) 64.9 % Lymph % (Auto) 22.6 % [place] % (Auto) 7.6 % Eos % (Auto) 3.9 % Baso % (Auto) 0.6 % Neut # (Auto) 5.10 (1.4-6.5) K/uL Lymph # (Auto) 1.78 (1.2-3.4) K/uL [place] # (Auto) 0.60 (0.24-0.82) K/uL Eos # (Auto) 0.31 (0-0.50) K/uL Baso # (Auto) 0.05 (0-0.2) K/uL Immature Gran # (Auto) 0.03 H (0.00-0.02) K/uL Sodium 133 L (136-145) mmol/L Potassium 6.7 H* (3.5-5.1) mmol/L Chloride 110 H (98-107) mmol/L Carbon Dioxide 17 L (21-32) mmol/L Anion Gap 6 (3-11) BUN 116 H (6-23) mg/dl Creatinine 3.11 H (0.6-1.4) mg/dl Est Cr Clr Drug Dosing 21.6 ml/min Est GFR ( Amer) 20.4 ml/min Est GFR (Non-Af Amer) 17.6 ml/min BUN/Creatinine Ratio 37.3 H (10-20) Glucose 131 H (70-99(Fasting)) mg/dl POC Glucose (70-99) mg/dl Calcium 9.6 (8.5-10.1) mg/dl Magnesium 1.9 (1.7-2.4) mg/dl Total Bilirubin 0.9 (0.2-1.0) mg/dl AST 18 (13-39) U/L ALT 23 (7-52) U/L Alkaline Phosphatase 147 H (34-104) U/L Total Protein 7.9 (6.0-8.3) gm/dl Albumin 4.0 (3.4-5.0) gm/dl Globulin 3.9 (2.5-4.0) gm/dl Albumin/Globulin Ratio 1.0 (0.9-2) 05/26/22 05/26/22 Range/Units 17:04 18:21 WBC (4.8-10.8) K/ul RBC (4.63-6.08) M/uL Hgb (14.0-18.0) g/dl Hct (40.1-51.0) % MCV (80.0-100.0) fL MCH (25.0-34.0) pg MCHC (32.0-36.0) g/dL RDW Std Deviation (36.4-46.3) fL RDW Coeff of Efe (11.5-14.5) % Plt Count (130-400) K/uL MPV (9.4-12.4) fL Immature Gran % (Auto) % Neut % (Auto) % Lymph % (Auto) % [place] % (Auto) % Eos % (Auto) % Baso % (Auto) % Neut # (Auto) (1.4-6.5) K/uL Lymph # (Auto) (1.2-3.4) K/uL [place] # (Auto) (0.24-0.82) K/uL Eos # (Auto) (0-0.50) K/uL Baso # (Auto) (0-0.2) K/uL Immature Gran # (Auto) (0.00-0.02) K/uL Sodium (136-145) mmol/L Potassium 6.6 H* (3.5-5.1) mmol/L Chloride (98-107) mmol/L Carbon Dioxide (21-32) mmol/L Anion Gap (3-11) BUN (6-23) mg/dl Creatinine (0.6-1.4) mg/dl Est Cr Clr Drug Dosing ml/min Est GFR ( Amer) ml/min Est GFR (Non-Af Amer) ml/min BUN/Creatinine Ratio (10-20) Glucose (70-99(Fasting)) mg/dl POC Glucose 174 H (70-99) mg/dl Calcium (8.5-10.1) mg/dl Magnesium (1.7-2.4) mg/dl Total Bilirubin (0.2-1.0) mg/dl AST (13-39) U/L ALT (7-52) U/L Alkaline Phosphatase (34-104) U/L Total Protein (6.0-8.3) gm/dl Albumin (3.4-5.0) gm/dl Globulin (2.5-4.0) gm/dl Albumin/Globulin Ratio (0.9-2) Administered Medications Discontinued Medications Dextrose (Dextrose 50% 50 Ml Syringe) 50 ml IV NOW STA Stop: 05/26/22 17:50 Last Admin: 05/26/22 17:58 Dose: 50 ml Documented By: BARB Sodium Chloride (Nss 1000ml) 1,000 mls @ 999 mls/hr IV .Q1H1M ONE Stop: 05/26/22 15:58 Last Infusion: 05/26/22 17:05 Dose: 0 mls/hr Documented By: Admin: 05/26/22 15:06 Dose: 999 mls/hr Documented By: BARB Calcium Gluconate () 1,000 mg in 60 mls @ 240 mls/hr IV NOW STA Stop: 05/26/22 15:12 Last Infusion: 05/26/22 15:22 Dose: 0 mls/hr Documented By: Admin: 05/26/22 15:06 Dose: 240 mls/hr Documented By: BARB Sodium Chloride (Nss 1000ml) 1,000 mls @ 999 mls/hr IV .Q1H1M ONE Stop: 05/26/22 19:05 Last Admin: 05/26/22 18:18 Dose: 999 mls/hr Documented By: BARB Insulin Human Regular (Novolin-R Insulin Per Unit Charge) 10 units IV NOW STA Stop: 05/26/22 17:50 Last Admin: 05/26/22 17:57 Dose: 10 units Documented By: BARB Co-signed By: EDILMA Imaging Data Radiologist's Impression: Chest X-Ray 05/26/22 15:47 XR chest 1V portable CLINICAL HISTORY: CONCEPCION; hyperkalemia COMPARISON STUDY: Chest radiograph April 28, 2020. FINDINGS: There are median sternotomy wires. Cardiomediastinal silhouette is stable. Lung volumes are diminished. This is unchanged. Left basilar opacity is similar to prior exam and favor scarring or atelectasis. There is no evidence for pulmonary edema. There is no consolidation to suggest pneumonia. IMPRESSION: No acute findings. No change in appearance of the chest. Low lung volumes with left basilar opacity that favors atelectasis or scarring. ACT 112: Negative or not required by law. Electronically signed by: Estuardo George M.D. 05/26/2022 4:02 PM Discharge Plan Visit Data Chief Complaint: Referred by Doctor Stated Complaint: DOC REFERR ED Provider: Rajani Doherty Discharge Problem: CONCEPCION (acute kidney injury), Acute hyperkalemia, Generalized weakness Patient Disposition: Admitted As Inpatient Forms Stand Alone Forms: [facility] Prescriptions Prescriptions: No Action aspirin [Adult Low Dose Aspirin] 81 mg tablet,delayed release (DR/EC) 81 mg PO DAILY allopurinol 100 mg tablet 100 mg PO DAILY atorvastatin 40 mg tablet 40 mg PO DAILY atenolol 50 mg tablet 25 mg PO DAILY cholecalciferol (vitamin D3) [Vitamin D3] 25 mcg (1,000 unit) Capsule 25 mcg PO DAILY thiamine HCl (vitamin B1) 100 mg Tablet 100 mg PO DAILY cyanocobalamin (vitamin B-12) 500 mcg Tablet 500 mcg PO DAILY furosemide 20 mg tablet 10 mg PO 3XWK acetaminophen 325 mg Capsule 325 mg PO QID PRN (Reason: Pain) folic acid 0.8 mg Capsule 0.8 mg PO DAILY Jardiance 10 mg tablet 10 mg PO QAM Shingrix (PF) 50 mcg/0.5 mL Suspension For Reconstitution 0.5 ml IM USEASDIRECTD Rx Instructions: Every 60 - 180 days Referrals Referrals: Nick Edwards MD [Primary Care Provider] -
--- NOTE | 2022-05-26 16:03 | XRay Report ---
XR chest 1V portable CLINICAL HISTORY: CONCEPCION; hyperkalemia COMPARISON STUDY: Chest radiograph April 28, 2020. FINDINGS: There are median sternotomy wires. Cardiomediastinal silhouette is stable. Lung volumes are diminished. This is unchanged. Left basilar opacity is similar to prior exam and favor scarring or a telectasis. There is no evidence for pulmonary edema. There is no consolidation to suggest pneumonia. IMPRESSION: No acute findings. No change in appearance of the chest. Low lung volumes with left basil ar opacity that favors atelectasis or scarring. ACT 112: Negative or not required by law. Electronically signed by: Estuardo George M.D. 05/26/2022 4:02 PM
[2022-05-26] MEDS ORDERED: NovoLIN-R INSULIN PER UNIT CHARGE IV STA (17:49)
[2022-05-26] MEDS ORDERED: DEXTROSE 50% 50 ML SYRINGE IV STA (17:49)
[2022-05-26] MEDS ORDERED: SODIUM BICARB 8.4% INJ 50 MEQ/50 ML SYR IV STA (19:38)
--- NOTE | 2022-05-26 21:38 | History & Physical Report ---
Date of Service May 26, 2022 Assessment & Plan (1) Acute hyperkalemia: Plan: Hyperkalemia ARF on CKD NAGMA secondary to above chronic diastolic heart failure (EF 60 to 64%, TTE 2021), patient possibly on the dry side severe bioprosthetic AVR stenosis, [facility] hypertension, slightly elevated hyperlipidemia, on statin Rx DM2 on oral medications, well-controlled as of recent hemoglobin A1c of 6.1 last August 2021 hx NAFLD cirrhosis, no overt decompensation chronic anemia, hemoglobin at baseline Chronic thrombocytopenia secondary to chronic liver disease PCU given bradycardia Additional decrease in beta-fernando dose for now Add bicarb, recheck CRP Baseline UA, monitor creatinine response to IVF Continue to hold home diuretic and SHANNAN inhibitor for now Renal ultrasound if kidney function does not improve Nephrology consult Re: ARF on CKD ISS BG goal 1 10-1 40, carb count coverage DVT prophylaxis. SCDs Re: Thrombocytopenia Full code Text document was generated using [employer] voice recognition software. It may contain grammatical or spelling errors. Kindly contact undersigned for clarification of any documentation item in question. History of Present Illness Chief Complaint: Abnormal blood work Primary Care Provider: Nick Edwards MD History obtained from patient and records. Medical history significant for chronic diastolic heart failure (EF 60 to 64%, TTE 2021), severe bioprosthetic AVR stenosis, mild MR, hypertension, hyperlipidemia, DM2 on oral medications, NAFLD cirrhosis, SANDI on CPAP, CRI (patient creatinine 1.9 ), chronic anemia (baseline hemoglobin of 11), chronic thrombocytopenia. Last confinement April 2020 for recurrent right-sided pneumothorax status post chest tube placement. Patient seen on follow-up visit at 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 Heart rate noted to be 40s at the office. Patient without any symptoms. Patient atenolol decreased from 50 to 25 mg daily. Stat labs ordered by provider. Patient told to hold chlorthalidone and lisinopril until labs resulted. Serum potassium noted to be 6.7, serum creatinine 3.2. Patient directed to ER for evaluation. Calcium gluconate, NSS, IV insulin administered for hyperkalemia. Patient asymptomatic. Denies OTC NSAID intake. 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 Allergies Allergy/AdvReac Type Severity Reaction Status Date / Time felodipine Allergy Intermediate HIVES Verified 05/26/22 16:08 Home Medications Medication Instructions Recorded Confirmed Type aspirin 81 mg tablet,delayed 81 mg PO DAILY 05/19/19 05/26/22 History release (Adult Low Dose Aspirin) allopurinol 100 mg tablet 100 mg PO DAILY 02/24/20 05/26/22 History atenolol 50 mg tablet 25 mg PO DAILY 02/24/20 05/26/22 History atorvastatin 40 mg tablet 40 mg PO DAILY 02/24/20 05/26/22 History cholecalciferol (vitamin D3) 25 25 mcg PO DAILY 03/21/20 05/26/22 History mcg (1,000 unit) capsule (Vitamin D3) cyanocobalamin (vitamin B-12) 500 500 mcg PO DAILY 03/21/20 05/26/22 History mcg tablet thiamine HCl (vitamin B1) 100 mg 100 mg PO DAILY 03/21/20 05/26/22 History tablet acetaminophen 325 mg capsule 325 mg PO QID PRN Pain 05/26/22 05/26/22 History empagliflozin 10 mg tablet 10 mg PO QAM 05/26/22 05/26/22 History (Jardiance) folic acid 0.8 mg capsule 0.8 mg PO DAILY 05/26/22 05/26/22 History furosemide 20 mg tablet 10 mg PO 3XWK 05/26/22 05/26/22 History varicella-zoster glycoE [id number] 0.5 ml IM USEASDIRECTD 05/26/22 05/26/22 History adj(PF) 50 mcg/0.5 mL IM susp, kit (Shingrix (PF)) Past Med/Surg History Medical History Chronic deep vein thrombosis (DVT) CKD (chronic kidney disease) stage 3, GFR 30-59 ml/min Diabetes HLD (hyperlipidemia) Hypoxemia SANDI on CPAP Psoriasis Recurrent spontaneous pneumothorax Sleep apnea with use of continuous positive airway pressure (CPAP) Steatohepatitis, non-alcoholic Vitamin D deficiency Surgical History History of aortic valve replacement History of colonoscopy History of hernia repair Rupture quadriceps tendon Family History Brother Heart disease CABG 2014 Father , 61 COPD (chronic obstructive pulmonary disease) Social History Smoking Status: Never smoker Hx Alcohol Use: Yes Alcohol type: beer and wine Hx Substance Use: No Preferred Language: Swiss 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: Effective 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 Beliefs That Will Affect Care: None marital status: Current Living Situation: Spouse Other Information That Helps Us Care for You: No Feels Safe at Home: Yes Safety Concerns: Feels Safe At This Time Assistive Devices: CPAP Review of Systems Review of Systems: As per HPI, all other systems reviewed and negative Physical Exam Physical Exam: GENERAL: Comfortable, pleasant, looks younger for stated age, no respiratory distress SKIN: Normal color, warm HEENT: [place] palpebral conjunctivae, no ptosis, moist buccal mucosa NECK : Supple, no tenderness CHEST : CTA, no tenderness HEART : Bradycardic, systolic murmur ABDOMEN: Some distention, nontender EXTREMITIES : No LE swelling/tenderness, no other conspicuous deformities noted NEUROLOGIC : Coherent, no facial asymmetry, no other gross focality Results & Data Results & Data ([facility]) Vital Signs (Past 12 Hours) Vital Signs Temp Pulse Pulse Resp BP BP Pulse Ox 05/26/22 18:17 55 L 16 124/44 L 100 05/26/22 15:15 41 L 16 138/55 L 99 05/26/22 13:54 36 C L 104 H 18 122/43 L 95 O2 Del Method 05/26/22 18:17 Room Air 05/26/22 15:15 05/26/22 13:54 Room Air Laboratory Results Laboratory Results WBC 7.87 K/ul (4.8-10.8) 05/26/22 14:15 RBC 3.87 M/uL (4.63-6.08) L 05/26/22 14:15 Hgb 11.8 g/dl (14.0-18.0) L 05/26/22 14:15 Hct 36.6 % (40.1-51.0) L 05/26/22 14:15 MCV 94.6 fL (80.0-100.0) 05/26/22 14:15 MCH 30.5 pg (25.0-34.0) 05/26/22 14:15 MCHC 32.2 g/dL (32.0-36.0) 05/26/22 14:15 RDW Std Deviation 48.8 fL (36.4-46.3) H 05/26/22 14:15 RDW Coeff of Efe 14.2 % (11.5-14.5) 05/26/22 14:15 Plt Count 108 K/uL (130-400) L 05/26/22 14:15 MPV 9.2 fL (9.4-12.4) L 05/26/22 14:15 Immature Gran % (Auto) 0.4 % 05/26/22 14:15 Neut % (Auto) 64.9 % 05/26/22 14:15 Lymph % (Auto) 22.6 % 05/26/22 14:15 [place] % (Auto) 7.6 % 05/26/22 14:15 Eos % (Auto) 3.9 % 05/26/22 14:15 Baso % (Auto) 0.6 % 05/26/22 14:15 Neut # (Auto) 5.10 K/uL (1.4-6.5) 05/26/22 14:15 Lymph # (Auto) 1.78 K/uL (1.2-3.4) 05/26/22 14:15 [place] # (Auto) 0.60 K/uL (0.24-0.82) 05/26/22 14:15 Eos # (Auto) 0.31 K/uL (0-0.50) 05/26/22 14:15 Baso # (Auto) 0.05 K/uL (0-0.2) 05/26/22 14:15 Immature Gran # (Auto) 0.03 K/uL (0.00-0.02) H 05/26/22 14:15 Sodium 133 mmol/L (136-145) L 05/26/22 14:15 Potassium 6.6 mmol/L (3.5-5.1) H* 05/26/22 17:04 Chloride 110 mmol/L (98-107) H 05/26/22 14:15 Carbon Dioxide 17 mmol/L (21-32) L 05/26/22 14:15 Anion Gap 6 (3-11) 05/26/22 14:15 BUN 116 mg/dl (6-23) H 05/26/22 14:15 Creatinine 3.11 mg/dl (0.6-1.4) H 05/26/22 14:15 Est Cr Clr Drug Dosing 21.6 ml/min 05/26/22 14:15 Est GFR ( Amer) 20.4 ml/min 05/26/22 14:15 Est GFR (Non-Af Amer) 17.6 ml/min 05/26/22 14:15 BUN/Creatinine Ratio 37.3 (10-20) H 05/26/22 14:15 Glucose 131 mg/dl (70-99(Fasting)) H 05/26/22 14:15 POC Glucose 174 mg/dl (70-99) H 05/26/22 18:21 Calcium 9.6 mg/dl (8.5-10.1) 05/26/22 14:15 Magnesium 1.9 mg/dl (1.7-2.4) 05/26/22 14:15 Total Bilirubin 0.9 mg/dl (0.2-1.0) 05/26/22 14:15 AST 18 U/L (13-39) 05/26/22 14:15 ALT 23 U/L (7-52) 05/26/22 14:15 Alkaline Phosphatase 147 U/L (34-104) H 05/26/22 14:15 Total Creatine Kinase 60 U/L (30-223) 05/26/22 17:04 Total Protein 7.9 gm/dl (6.0-8.3) 05/26/22 14:15 Albumin 4.0 gm/dl (3.4-5.0) 05/26/22 14:15 Globulin 3.9 gm/dl (2.5-4.0) 05/26/22 14:15 Albumin/Globulin Ratio 1.0 (0.9-2) 05/26/22 14:15 SARS-CoV-2, RNA, NAAT NEGATIVE (NEGATIVE) 05/26/22 19:22 Impressions Chest X-Ray 05/26/22 15:47 XR chest 1V portable CLINICAL HISTORY: CONCEPCION; hyperkalemia COMPARISON STUDY: Chest radiograph April 28, 2020. FINDINGS: There are median sternotomy wires. Cardiomediastinal silhouette is stable. Lung volumes are diminished. This is unchanged. Left basilar opacity is similar to prior exam and favor scarring or atelectasis. There is no evidence for pulmonary edema. There is no consolidation to suggest pneumonia. IMPRESSION: No acute findings. No change in appearance of the chest. Low lung volumes with left basilar opacity that favors atelectasis or scarring. ACT 112: Negative or not required by law. Electronically signed by: Estuardo George M.D. 05/26/2022 4:02 PM Diagnostic Findings EKG as per my interpretation : Rate 45, junctional rhythm, normal axis, no ischemia
[2022-05-26 22:51] LABS: Appearance Urine Clear (Clear); Bilirubin Urine Negative (Negative); Blood Urine Negative (Negative); Color Urine Yellow; Glucose Urine UA 2+ (Negative); Ketones Urine Negative (Negative); Leukocyte Esterase Urine Negative (Negative); Nitrite Urine Negative (Negative); Protein Urine Negative (Negative); Specific Gravity Urine 1.015 (1.000-1.030); Urobilinogen Urine Negative (Negative)
[2022-05-26] MEDS ORDERED: GLUCAGON FOR INJ 1 MG VIAL SQ PRN (22:54)
[2022-05-26] MEDS ORDERED: GLUCOSE 40% GEL 15 GM TUBE PO PRN (22:54)
[2022-05-26] MEDS ORDERED: GLUCOSE 10 TAB/TUBE PO PRN (22:54)
[2022-05-26] MEDS ORDERED: PROMETHAZINE HCL 12.5 MG in SODIUM CHLORIDE 0.9% 50 ML IV PRN (22:54)
[2022-05-26] MEDS ORDERED: oxyCODONE HCL IR 5 MG TAB (IMMEDIATE RELEASE) PO PRN (22:54)
[2022-05-26] MEDS ORDERED: CARBOHYDRATES FOR HYPOGLYCEMIA PO PRN (22:54)
[2022-05-26] MEDS ORDERED: DEXTROSE 50% 50 ML SYRINGE IV PRN (22:54)
[2022-05-26 22:55] LABS: BUN Creatinine Ratio 39.1 (10-20); Calcium 9.3 mg/dl (8.5-10.1); Creatinine Clr Calc Pharmacy 25.3 ml/min; Est GFR (African American) 24.6 ml/min; Est GFR (Non-African American) 21.2 ml/min; Potassium 5.7 mmol/L (3.5-5.1)
[2022-05-26] MEDS ORDERED: ACETAMINOPHEN 325 MG TAB PO PRN (23:23)
[2022-05-26] MEDS ORDERED: HEPARIN SOD 5,000 UNIT/0.5 ML VIAL SQ SCH (23:30)
[2022-05-27] MEDS: INSULIN ASPART PER UNIT SC SCH ×5 (00:15→20:59)
[2022-05-27] MEDS ORDERED: SODIUM BICARB 8.4% INJ 50 MEQ/50 ML SYR IV STA ×2 (03:16→06:40)
[2022-05-27 05:55] LABS: Base Excess VBG -8.1 mEq/L; HCO3 VBG 19 mmol/L; Oxygen Saturation VBG < 60.0 %; PCO2 VBG 43 mmHg (38-50); PO2 VBG 17 mmHg; pH VBG 7.25 (7.36-7.41)
[2022-05-27] MEDS ORDERED: SODIUM CHLORIDE 0.9% 1000ML 1,000 ML IV SCH (06:00)
[2022-05-27 06:26] LABS: BUN Creatinine Ratio 40.5 (10-20); Calcium 8.6 mg/dl (8.5-10.1); Creatinine Clr Calc Pharmacy 27.6 ml/min; Est GFR (African American) 27.6 ml/min; Est GFR (Non-African American) 23.8 ml/min; Potassium 6.2 mmol/L (3.5-5.1)
[2022-05-27] MEDS ORDERED: STAT IV STA ×3 (06:32→09:50)
[2022-05-27] MEDS ORDERED: CALCIUM GLUCONATE 10% 1,000 MG in DEXTROSE 5% 50 ML IV ONE (06:32)
[2022-05-27] MEDS ORDERED: DEXTROSE 50% 50 ML SYRINGE IV ONE (06:37)
[2022-05-27] MEDS ORDERED: INSULIN HUMAN REGULAR PER UNIT 10 UNITS in SYRINGE 9.9 ML IV STA (06:44)
[2022-05-27 06:46] LABS: Basophils # (auto) 0.03 K/uL (0-0.2); Basophils % (auto) 0.6 %; Echinocytes 3+; Eosinophils # (auto) 0.27 K/uL (0-0.50); Eosinophils % (auto) 5.7 %; Hematocrit (blood only) 29.3 % (40.1-51.0); Hemoglobin 9.6 g/dl (14.0-18.0); Immature Granulocytes # (auto) 0.02 K/uL (0.00-0.02); Immature Granulocytes % (auto) 0.4 %; Lymphocytes # (auto) 1.34 K/uL (1.2-3.4); Lymphocytes % (auto) 28.1 %; Mean Corpuscular Hemoglobin 30.8 pg (25.0-34.0); Mean Corpuscular Hgb Conc 32.8 g/dL (32.0-36.0); Mean Corpuscular Volume 93.9 fL (80.0-100.0); Mean Platelet Volume 10.1 fL (9.4-12.4); Monocytes # (auto) 0.44 K/uL (0.24-0.82); Monocytes % (auto) 9.2 %; Neutrophils # (auto) 2.67 K/uL (1.4-6.5); Platelet Count 67 K/uL (130-400); RDW Standard Deviation 47.7 fL (36.4-46.3); Red Blood Count 3.12 M/uL (4.63-6.08); White Blood Count 4.77 K/ul (4.8-10.8)
[2022-05-27] MEDS ORDERED: FUROSEMIDE 40 MG/4 ML VIAL IV ONE ×2 (07:47→09:50)
[2022-05-27] MEDS: FOLIC ACID 400 MCG TAB PO SCH (07:49)
[2022-05-27] MEDS: ATORVASTATIN 40 MG TAB PO SCH (07:49)
[2022-05-27] MEDS: ASPIRIN 81 MG ECTAB PO SCH (07:49)
[2022-05-27] MEDS: THIAMINE HCL 100 MG TAB PO SCH (07:49)
[2022-05-27] MEDS: allopurinoL 100 MG TAB PO SCH (07:49)
[2022-05-27] MEDS: CYANOCOBALAMIN (B-12) 500 MCG TABLET PO SCH (07:49)
[2022-05-27] MEDS ORDERED: SODIUM BICARBONATE 8.4% 150 MEQ in DEXTROSE 5% 1,000 ML IV SCH (08:00)
[2022-05-27] MEDS ORDERED: ATENOLOL 50 MG TABLET PO SCH (09:00)
[2022-05-27] MEDS: SODIUM BICARBONATE 8.4% 150 MEQ in DEXTROSE 5% 1,000 ML IV SCH ×2 (10:35→22:14)
--- NOTE | 2022-05-27 10:39 | Cardiology Consultation ---
Date of Consultation May 27, 2022 Assessment & Plan (1) CONCEPCION (acute kidney injury): (2) Acute hyperkalemia: (3) Generalized weakness: (4) Bradycardia: (5) Prosthetic aortic valve stenosis: (6) HTN, goal below 130/80: (7) Dyslipidemia, goal LDL below 70: Plan Acute on chronic renal dysfunction and hyperkalemia. Treatment as per Hospitalist and Nephrology Bradycardia. Hold atenolol. Continue telemetry without interruption. No overt indication for permanent pacemaker implantation yet. Will likely need to restart low dose beta-fernando therapy in the AM, switching atenolol to metoprolol succinate, perhaps at 12.5 mg/day. Patient is high risk for recurrent atrial fibrillation which, thus far, has only been observed postoperatively in 2013. Borderline severe bioprosthetic aortic valve stenosis. Patient scheduled for resting echocardiography on June 10, 2022 followed by reevaluation by the [facility] on July 23, 2022. Cardiac catheterization 03/14/2014 without obstructive disease on coronary angiography. Hypertension. Controlled. Hyperlipidemia. Continue moderate intensity statin therapy. Supervising Physician Co-Signing Physician Notes Supervising Physician Attestation: I have personally performed a history and physical examination on the patient. I agree with the physician registered sales assistant's findings and plan as documented with the following additions. Subjective: Patient seen in follow-up. He just finished his afternoon meal. Feeling well. Telemetry revealed sinus bradycardia in the 50s as of recently. Exam: Cardiovascular: Regular rhythm, bradycardic, 2/6 systolic murmur, no edema Data: Laboratory studies as noted above Potassium on arrival 05/26/2022: 6.7 Most recent as of at 11:56 AM: 5.4 Summary of outpatient transthoracic echocardiogram dated 11/26/2021: Sinus bradycardia noted during the test, heart rate 45-49 bpm. Left ventricular ejection fraction= 60 to 64% There is severe aortic valve prosthesis stenosis. The peak velocity across the aortic valve prosthesis= 4.2 meters/second, mean gradient 40 mm Hg. Assessment and Plan: CONCEPCION on CKD with hyperkalemia Severe prosthetic stenosis Comment: Patient's past discussed that she notes patient has had significant diarrhea perhaps since starting Jardiance. Jardiance was started in November of this year and replacement of glipizide. This has been discontinued especially given the patient's CONCEPCION. Nephrology input with regards to managing his hyperkalemia appreciated. Continue gentle hydration with sodium bicarb and 100 mL/h. Beta-fernando on hold for now. DVT prophylaxis: Not on pharmacologic DVT prophylaxis due to platelet count of 67, mild anemia. Will reassess daily Lio Richard, History of Present Illness Reason for Consultation: Bradycardia Requesting Physician: Nileshoner Attending Physician: Carlos History of Present Illness Patient referred for hospitalization after routine follow-up evaluation by Dr. Calero on May 26, 2022 - abnormal blood work. Metabolic panel on 05/26/2022 revealed significant hyperkalemia with a potassium of 6.7, acute on chronic renal dysfunction with a BUN of 112 and a creatinine of 3.2. Sodium was 135. Glucose was 139. Calcium was normal at 9.6. Anion gap was normal at 14. Patient describes feeling somewhat weak and rundown over the last few weeks. Notes frequent loose stools over the last couple of weeks to perhaps two months. Notes generally not feeling right. The most recent medication change was the addition of Jardiance and late November or December 2021. No sick contacts. Notes feeling cold though without documented fever or rigors. No chest pain, tachypalpitations, increased shortness of breath, orthopnea, PND, peripheral edema, syncope, epistaxis, hemoptysis, melena, hematochezia, hematuria or dysuria. Patient was bradycardic on evaluation by Dr. Calero with recommendation at that time to reduce Atenolol from 50 mg/day to 25 mg/day. Patient also advised to hold Chlorthalidone and lisinopril pending review of laboratory work mentioned above. Labs verified on ER presentation, receiving 10 units of IV insulin and dextrose, 1 L normal saline, 1 g of IV calcium. Patient has been evaluated by Nephrology. Admission H&P documentation pending. Chest x-ray on presentation showed low lung volumes with left basilar opacity favoring atelectasis or scarring, without acute findings. EKG on presentation revealed marked sinus bradycardia at 47 bpm with first- degree AV block peaked T waves. Cannot rule out an anterior infarct. QTc 385 ms. EKG this morning revealed sinus bradycardia at 52 bpm with a first-degree AV block. Continuous telemetry monitoring reveals sinus bradycardia with ? periods of junctional rhythm. Heart rates predominantly in the 50s. Lowest heart rate observed: 35 bpm. Highest heart rate observed: 80 bpm. Past Medical and Surgical History: Aortic valve disease, severe calcific aortic valve stenosis status post May 2014 aortic valve replacement with a [address] Jewel Trifecta bioprosthesis. Resting echocardiography in November 2021 with borderline severe bioprosthetic aortic valve stenosis Cardiac catheterization 03/14/2014 without obstructive disease on coronary angiography. Obstructive sleep apnea on CPAP supplementation. Type II diabetes mellitus Hypertension. Hyperlipidemia. Stage IIIb chronic renal insufficiency. Recurrent right pneumothorax, spontaneous Steatohepatitis, DE LA CRUZ cirrhosis Gout Diverticulosis Vitamin D deficiency Bilateral quad rupture and repair x 2. Left incisional hernia repair. AVR. Status post laser vaporization of the prostate in 05/2007. Family History: Father at 61 with emphysema. Mother lived to . Social History: Nonsmoker. Alcohol: Rare. No illegal drugs. 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 Complete Review of Systems is as stated above, negative, or noncontributory Allergies Allergy/AdvReac Type Severity Reaction Status Date / Time felodipine Allergy Intermediate HIVES Verified 05/26/22 16:08 Home Medications Medication Instructions Recorded Confirmed Type aspirin 81 mg tablet,delayed 81 mg PO DAILY 05/19/19 05/26/22 History release (Adult Low Dose Aspirin) allopurinol 100 mg tablet 100 mg PO DAILY 02/24/20 05/26/22 History atenolol 50 mg tablet 25 mg PO DAILY 02/24/20 05/26/22 History atorvastatin 40 mg tablet 40 mg PO DAILY 02/24/20 05/26/22 History cholecalciferol (vitamin D3) 25 25 mcg PO DAILY 03/21/20 05/26/22 History mcg (1,000 unit) capsule (Vitamin D3) cyanocobalamin (vitamin B-12) 500 500 mcg PO DAILY 03/21/20 05/26/22 History mcg tablet thiamine HCl (vitamin B1) 100 mg 100 mg PO DAILY 03/21/20 05/26/22 History tablet acetaminophen 325 mg capsule 325 mg PO QID PRN Pain 05/26/22 05/26/22 History empagliflozin 10 mg tablet 10 mg PO QAM 05/26/22 05/26/22 History (Jardiance) folic acid 0.8 mg capsule 0.8 mg PO DAILY 05/26/22 05/26/22 History furosemide 20 mg tablet 10 mg PO [id number] 05/26/22 05/26/22 History varicella-zoster glycoE [id number] 0.5 ml IM USEASDIRECTD 05/26/22 05/26/22 History adj(PF) 50 mcg/0.5 mL IM susp, kit (Shingrix (PF)) Patient History Medical History Chronic deep vein thrombosis (DVT) CKD (chronic kidney disease) stage 3, GFR 30-59 ml/min Diabetes HLD (hyperlipidemia) Hypoxemia SANDI on CPAP Psoriasis Recurrent spontaneous pneumothorax Sleep apnea with use of continuous positive airway pressure (CPAP) Steatohepatitis, non-alcoholic Vitamin D deficiency Surgical History History of aortic valve replacement History of colonoscopy History of hernia repair Rupture quadriceps tendon Family History Brother Heart disease CABG 2013 Father , 61 COPD (chronic obstructive pulmonary disease) Social History Smoking Status: Never smoker Hx Alcohol Use: Yes Alcohol type: beer and wine Hx Substance Use: No Preferred Language: Bolivian 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: Effective 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 Physical Exam Physical Exam: General: A&Ox3. NAD. HENT: Normocephalic. Atraumatic. Eyes: PER. Conjunctiva pink, sclera pale. Neck: Transmitted systolic murmur versus bilateral carotid bruits. No JVD. No HJR. Heart: Regular at 56 bpm. Grade II/ systolic ejection murmur. Preserved S2. PMI is nondisplaced. Lungs: Clear to auscultation. Abdomen: +BS. Soft. Nontender. No masses or organomegaly. Extremities: No clubbing, cyanosis, or edema. Limited neurological examination is without focal deficits. Pulses: radial=2/4, posterior tibial=0/4. Results & Data ([facility]) Vital Signs (Past 12 Hours) Vital Signs Temp Pulse Pulse Resp BP Pulse Ox Pulse Ox 05/27/22 08:40 52 L 05/27/22 08:40 05/27/22 07:09 36.6 C 52 L 20 133/53 L 100 05/27/22 02:55 36.6 C 62 20 132/52 L 96 05/26/22 23:00 36.8 C 70 22 155/62 H 95 05/26/22 23:00 95 O2 Del Method O2 Del Method 05/27/22 08:40 05/27/22 08:40 Room Air, CPAP 05/27/22 07:09 Room Air 05/27/22 02:55 BiPAP 05/26/22 23:00 Room Air 05/26/22 23:00 Room Air Laboratory Results Cardiac Enzymes 05/26/22 Range/Units 14:15 AST 18 (13-39) U/L CBC 05/26/22 05/27/22 Range/Units 14:15 05:35 WBC 7.87 4.77 L (4.8-10.8) K/ul RBC 3.87 L 3.12 L (4.63-6.08) M/uL Hgb 11.8 L 9.6 L (14.0-18.0) g/dl Hct 36.6 L 29.3 L (40.1-51.0) % Plt Count 108 L 67 L (130-400) K/uL Neut # (Auto) 5.10 2.67 (1.4-6.5) K/uL Lymph # (Auto) 1.78 1.34 (1.2-3.4) K/uL [place] # (Auto) 0.60 0.44 (0.24-0.82) K/uL Eos # (Auto) 0.31 0.27 (0-0.50) K/uL Baso # (Auto) 0.05 0.03 (0-0.2) K/uL Comprehensive Metabolic Panel 05/26/22 05/26/22 05/26/22 Range/Units 14:15 17:04 22:29 Sodium 133 L 137 (136-145) mmol/L Potassium 6.7 H* 6.6 H* 5.7 H (3.5-5.1) mmol/L Chloride 110 H 115 H (98-107) mmol/L Carbon Dioxide 17 L 17 L (21-32) mmol/L BUN 116 H 104 H (6-23) mg/dl Creatinine 3.11 H 2.66 H D (0.6-1.4) mg/dl Glucose 131 H 85 (70-99(Fasting)) mg/dl Calcium 9.6 9.3 (8.5-10.1) mg/dl AST 18 (13-39) U/L ALT 23 (7-52) U/L Alkaline Phosphatase 147 H (34-104) U/L Total Protein 7.9 (6.0-8.3) gm/dl Albumin 4.0 (3.4-5.0) gm/dl 05/27/22 Range/Units 05:35 Sodium 140 (136-145) mmol/L Potassium 6.2 H* (3.5-5.1) mmol/L Chloride 116 H (98-107) mmol/L Carbon Dioxide 20 L (21-32) mmol/L BUN 98 H (6-23) mg/dl Creatinine 2.42 H (0.6-1.4) mg/dl Glucose 83 (70-99(Fasting)) mg/dl Calcium 8.6 (8.5-10.1) mg/dl AST (13-39) U/L ALT (7-52) U/L Alkaline Phosphatase (34-104) U/L Total Protein (6.0-8.3) gm/dl Albumin (3.4-5.0) gm/dl Intake and Output 05/26/22 05/27/22 05/27/22 22:59 06:59 14:59 Intake Total 2059 115. / 265 / 265 Output Total 400 / 400 Balance 2059 115. / -135 / -135 Intake: IV 2059. 105. 265 / 265 Calcium Gluconate 1,000 mg In 60 / 120 60 / 120 60 ml @ 240 mls/hr IV NOW [facility] Rx#:[id number] Calcium Gluconate 10% 1,000 mg 60 / 60 In Dextrose 5% 50 ml @ 240 mls/ hr IV NOW ONE Rx#:[id number] Sodium Chloride 0.9% 1000ML , 1999 / 2991.667 991.667 / 2991.667 205 / 205 000 ml @ 100 mls/hr IV .Q10H [facility] Rx#:[id number] Oral 100 / 100 Output: Urine 400 / 400 Other: # Unmeasured Voids 1 Weight 94.5 kg Weight Measurement Method [facility]
[2022-05-27 12:41] LABS: Calcium 9.3 mg/dl (8.5-10.1); Est GFR (African American) 29.3 ml/min; Est GFR (Non-African American) 25.3 ml/min; Potassium 5.4 mmol/L (3.5-5.1)
--- NOTE | 2022-05-27 13:24 | Consultation Report ---
NEPHROLOGY CONSULTATION NOTE DATE OF SERVICE: 05/27/2022. REASON FOR CONSULTATION: Acute renal failure and hyperkalemia. HISTORY OF PRESENT ILLNESS: The patient is an 81-year-old male who was referred for hospitalization after routine followup evaluation by Dr. Calero yesterday. He was found to have abnormal blood work showing hyperkalemia with a potassium of 6.7, [id number] renal failure with a BUN of 112 and a creatinine of 3.2. Since being admitted, patient has received some medical management of hyperkalemia. Sodium went down to 5.7, but again went up to 6.2 this morning. Since then, he has received 1 dose of IV Lasix and just started on sodium bicarbonate drip. The patient had bradycardia in the clinic yesterday. The patient has been feeling weak and run down over the last few weeks. At home, patient takes chlorthalidone as well as lisinopril and atenolol, all 3 medications are currently on hold. He has also received some IV fluids since being admitted and with that, creatinine has actually got better from 3.11, it is down to 2.42. Chest x-ray did not show any congestive heart failure. The patient appears to be fairly stable and does not have any acute complaint. His vital signs also getting increasingly normal, heart rate is still somewhat low in the high 40s and low 50s with junctional rhythm. PAST MEDICAL AND SURGICAL HISTORY: Includes chronic diastolic heart failure, ejection fraction 60% on the echocardiogram 2021, severe bioprosthetic aortic valve replacement stenosis, mild MR, hypertension, hyperlipidemia, type 2 diabetes, on oral medication, cirrhosis secondary to DE LA CRUZ, obstructive sleep apnea on CPAP, chronic kidney disease. The patient's baseline creatinine around 1.9, chronic anemia, chronic thrombocytopenia, aortic valve replacement, colonoscopy, hernia repair, quadriceps tendon repair. FAMILY HISTORY: Negative for renal disease or dialysis. SOCIAL HISTORY: Never smoked. Occasional alcohol. , lives with his spouse. Feels safe at his home, uses CPAP at home. ALLERGIES: FELODIPINE. HOME MEDICATIONS: Home medication list was reviewed in detail and includes aspirin, allopurinol, atenolol, atorvastatin, cholecalciferol, vitamin B12, thiamine, acetaminophen, Jardiance, which was started in 11/2021, Lasix 20 mg 3 times a week. REVIEW OF SYSTEMS: The patient was having weakness and nonspecific fatigue for the last few weeks. Otherwise, 12 systems reviewed and negative. PHYSICAL EXAMINATION: GENERAL: Elderly white male who is not in any overt respiratory distress. He is awake, alert, oriented x3 and was able to give me a detailed account of his medical history. VITAL SIGNS: Most recent vital signs show blood pressure 150/52, pulse rate 52, temperature 36.3, 95% on room air, respiratory rate 18. HEENT: Mucous membranes are moist. NECK: Supple. No jugular venous distention. CHEST: Bilateral clear to auscultation. CARDIOVASCULAR: S1 and S2, regular. Grade II/ systolic murmur heard. ABDOMEN: Soft, nontender. EXTREMITIES: Shows no edema. NEUROLOGICALLY: Awake, alert, oriented x3, normal speech. LABORATORY TEST: Baseline creatinine around 1.9, on admission had a creatinine of 3.1, this morning it is down to 2.42. Potassium was 6.6 on admission. Most recent one is 6.2. Calcium 8.6, bicarb is 20, anion gap is 4, BUN 98, creatinine is 2.42. His BUN yesterday on admission was 116. Chest x-ray unremarkable. Urine sediment done at the time of admission was negative for blood and negative for protein and a pretty bland urine sediment. ASSESSMENT AND PLAN: An 81-year-old male with extensive cardiac history as well as CKD stage IIIB, with a baseline creatinine around 1.9. Now admitted with abnormal labs showing [id number] renal failure, hyperkalemia and bradycardia. 1. Fvbiy-tz-tdewygd renal failure, it appears patient was prerenal secondary to volume deficit as well as bradycardia. His creatinine and BUN has got better with some IV fluid, which is encouraging, but he still has significant hyperkalemia, so given this, I would like to change the fluid to bicarbonate drip 150 mEq and dextrose and run it at 100 mL per hour for at least till we get a normal potassium. I would also give one dose of Lasix 40 mg for renal loss of potassium. Recommend to hold lisinopril, chlorthalidone, atenolol for now. 2. Bradycardia. At this point, it is not clear which came first, the bradycardia causing a prerenal acute renal failure or the hyperkalemia causing bradycardia. I expect the potassium to be normal by the afternoon. If he still has significant bradycardia and abnormal cardiac rhythm tomorrow after complete normalization of potassium, consideration should be made for further evaluation for the bradycardia. Thank you very much for the consult. Job ID: [id number] [facility]PITALJaye
--- NOTE | 2022-05-27 13:43 | Hospitalist Progress Note ---
Date of Service May 27, 2022 Assessment & Plan (1) Acute hyperkalemia: Plan: CONCEPCION on CKD III Likely prerenal Non Anion gap metabolic acidosis Cr:3.1>2.4>2.3 Renal USD: pending Continue IV fluids Held lisinopril, chlorthalidone Appreciate Nephrology Input Hyperkalemia Secondary to above Potassium:6.7>6.2>5.4 Received Calcium gluconate, Lasix Continue IV bicarbonate Low potassium diet Monitor Bradycardia Asymptomatic Hold Atenolol Check ECHO Monitor electrolytes Consulted Cardiology Diarrhea Unclear etiology Stool studies if recurrence of diarrhea Monitor volume status Chronic diastolic heart failure Last EF 60 to 64%, TTE 2021 No sign of volume overload Severe bioprosthetic AVR stenosis Monitor volume status completely resume meds as able Hypertension BP stable Resume home meds as able Monitor Hyperlipidemia on statin DM II HbA1C: 6.06 Aug 2021 Hold PO meds Continue Insulin while hospitalized Monitor BGs H/O NAFLD cirrhosis No overt decompensation Anemia of Chronic disease Thrombocytopenia No bleeding issues Hb drop likely dilutional due to IV fluids Monitor CBC DVT Px: SCDs Re: Thrombocytopenia Code Status Full code Admission and Anticipated Discharge Date Admission Date: May 26, 2022 Subjective Patient is seen and examined at bedside Generalized weakness and Diarrhea improved Denies any chest pain, dyspnea, dizziness, nausea, abd pain Discussed with family at bedside Review of Systems Review of Systems: All systems reviewed & are unremarkable except as noted in Subjective Physical Exam Physical Exam: Physical Exam: Vitals signs as noted above General Appearance:Obese, no apparent distress Head: normocephalic, Atraumatic Eyes: normal inspection, EOMI Neck: supple, Trachea midline Respiratory/Chest: Normal breath sounds, CTA, No accessory muscle use Cardiovascular: S1, S2, + murmur Abdomen/GI:Soft, Non tender, Protuberant, Bowel sounds present Extremities/Musculoskeletal:normal inspection, no edema Neurologic/Psych:AAOX3, grossly no focal neurological deficits Skin: normal color, warm Results & Data Results & Data ([facility]) Vital Signs (Past 12 Hours) Vital Signs Temp Pulse Pulse Resp BP Pulse Ox O2 Del Method 05/27/22 11:20 36.3 C L 52 L 18 150/52 H 95 Room Air 05/27/22 08:40 52 L 05/27/22 08:40 Room Air, CPAP 05/27/22 07:09 36.6 C 52 L 20 133/53 L 100 Room Air 05/27/22 02:55 36.6 C 62 20 132/52 L 96 BiPAP Laboratory Results Short CBC 05/26/22 05/27/22 Range/Units 14:15 05:35 WBC 7.87 4.77 L (4.8-10.8) K/ul Hgb 11.8 L 9.6 L (14.0-18.0) g/dl Hct 36.6 L 29.3 L (40.1-51.0) % Plt Count 108 L 67 L (130-400) K/uL BMP 05/26/22 05/26/22 05/26/22 14:15 17:04 22:29 Sodium 133 L 137 Potassium 6.7 H* 6.6 H* 5.7 H Chloride 110 H 115 H Carbon Dioxide 17 L 17 L BUN 116 H 104 H Creatinine 3.11 H 2.66 H D Glucose 131 H 85 Calcium 9.6 9.3 05/27/22 05/27/22 05:35 11:56 Sodium 140 139 Potassium 6.2 H* 5.4 H Chloride 116 H 111 H Carbon Dioxide 20 L 23 BUN 98 H 92 H Creatinine 2.42 H 2.30 H Glucose 83 126 H Calcium 8.6 9.3 Cardiac Enzymes 05/26/22 Range/Units 17:04 Total Creatine Kinase 60 (30-223) U/L Liver Function 05/26/22 Range/Units 14:15 Total Bilirubin 0.9 (0.2-1.0) mg/dl AST 18 (13-39) U/L ALT 23 (7-52) U/L Alkaline Phosphatase 147 H (34-104) U/L Albumin 4.0 (3.4-5.0) gm/dl Urine 05/26/22 Range/Units 22:15 Urine Color Yellow Urine Appearance Clear (Clear) Urine pH 5.0 (4.5-7.5) Ur Specific [place] 1.015 (1.000-1.030) Urine Protein Negative (Negative) Urine Glucose (UA) 2+ H (Negative)
--- NOTE | 2022-05-27 14:26 | Ultrasound Report ---
US renal/blad retro comp CLINICAL HISTORY: CONCEPCION TECHNIQUE: Multiple sonographic real-time images of the kidneys and bladder were obtained. COMPARISON: Comparison is made to abdominal ultrasound 06/16/2008 FINDINGS: The right kidney measures 11.7 cm in length, and the left kidney measures 10.8 cm in length. The right kidney is normal in size, contour, cortical thickness, and echogenicity. No hydronephrosis is identified. A right renal cyst is noted. No perinephric fluid collection is seen. The left kidney is normal in size, contour, cortical thickness and echogenicity. No hydronephrosis i s identified. A left lateral cystic lesion is seen. No perinephric fluid collection is seen. Bladder diverticulum is incidentally noted. No large intraluminal mass is seen. IMPRESSION: Bilateral renal cysts without evidence of hydronephrosis. Bladder wall thickening and diverticula com patible with chronic outlet obstruction. ACT 112: Negative or not required by law. Electronically signed by: Ludwig Vaz M.D. 05/27/2022 2:24 PM
[2022-05-27 16:33] LABS: Albumin Level 3.5 gm/dl (3.4-5.0); Phosphorus 4.3 mg/dl (2.5-4.9)
[2022-05-28 06:36] LABS: BUN Creatinine Ratio 35.7 (10-20); Calcium 8.6 mg/dl (8.5-10.1); Est GFR (African American) 28.2 ml/min; Est GFR (Non-African American) 24.3 ml/min; Potassium 5.1 mmol/L (3.5-5.1)
[2022-05-28 06:47] LABS: Hematocrit (blood only) 28.7 % (40.1-51.0); Mean Corpuscular Hemoglobin 31.4 pg (25.0-34.0); Mean Corpuscular Hgb Conc 34.8 g/dL (32.0-36.0); Mean Corpuscular Volume 90.3 fL (80.0-100.0); Mean Platelet Volume 9.7 fL (9.4-12.4); Platelet Count 64 K/uL (130-400); RDW Coefficient of Variation 13.8 % (11.5-14.5); RDW Standard Deviation 45.7 fL (36.4-46.3); Red Blood Count 3.18 M/uL (4.63-6.08); White Blood Count 4.53 K/ul (4.8-10.8)
[2022-05-28] MEDS: INSULIN ASPART PER UNIT SC SCH ×4 (08:04→20:15)
[2022-05-28] MEDS: allopurinoL 100 MG TAB PO SCH (08:28)
[2022-05-28] MEDS: CYANOCOBALAMIN (B-12) 500 MCG TABLET PO SCH (08:29)
[2022-05-28] MEDS: THIAMINE HCL 100 MG TAB PO SCH (08:29)
[2022-05-28] MEDS: ATORVASTATIN 40 MG TAB PO SCH (08:29)
[2022-05-28] MEDS: FOLIC ACID 400 MCG TAB PO SCH (08:29)
[2022-05-28] MEDS: ASPIRIN 81 MG ECTAB PO SCH (08:45)
--- NOTE | 2022-05-28 08:54 | Cardiology Progress Note ---
Date of Service May 28, 2022 Assessment & Plan (1) CONCEPCION (acute kidney injury): (2) Acute hyperkalemia: (3) Generalized weakness: (4) Bradycardia: (5) Prosthetic aortic valve stenosis: (6) HTN, goal below 130/80: (7) Dyslipidemia, goal LDL below 70: Plan Acute on chronic renal dysfunction and hyperkalemia. Improved. Treatment as per Hospitalist and Nephrology Bradycardia. Heart rates have improved off of atenolol. Telemetry monitoring this morning reveals sinus in the 60s with a first-degree heart block. Continue telemetry monitoring while hospitalized. Continue without AV juan fernando therapy at this time. Patient is high risk for recurrent atrial fibrillation which, thus far, has only been observed postoperatively in 2013. If/when resumption of beta-fernando therapy is needed would utilize metoprolol succinate, likely starting out at 12.5 mg/day. No overt indication for permanent pacemaker implantation yet. Borderline severe bioprosthetic aortic valve stenosis. Echo stable this admission. Patient scheduled for resting echocardiography on June 10, 2022 followed by reevaluation by the [facility] on July 23, 2022. Cardiac catheterization 03/14/2014 without obstructive disease on coronary angiography. Hypertension. Controlled. Hyperlipidemia. Continue moderate intensity statin therapy. Increase activity as tolerated. Outpatient cardiology follow-up at [facility] at 11:45 AM on 06/02/2022. Admission and Anticipated Discharge Date Admission Date: May 26, 2022 Supervising Physician Co-Signing Physician Notes Supervising Physician Attestation: I have personally performed a history and physical examination on the patient. I agree with the physician treasury assistant's findings and plan as documented with the following additions. Subjective: Subjectively improved. Diarrhea are resolved. Telemetry reveals stable findings Exam: Cardiovascular: Regular rhythm, II/ systolic murmur, no edema Data: Echocardiogram with findings similar to most recent outpatient study Creatinine trending toward improvement, 3.11 on presentation, 2.38 today Assessment and Plan: As noted above -Continue to hold atenolol, Jardiance, diuretics. Lio Richard, DO Subjective Patient seen and examined. Chart, medications, and telemetry reviewed. Feeling considerably better this morning as compared to admission. Weakness has improved. Normal bowel movement this morning. Increased urination. Improving cough. No chest pain. No increased shortness of breath. No palpitations. No fluid retention. EKG dated and timed May 28, 2022 at 05:47:11 reveals sinus bradycardia with a first-degree AV block Continuous telemetry monitoring reveals sinus bradycardia with periods of Mobitz type I block and junctional rhythms overnight. Since approximately 730 this morning, telemetry reveals sinus in the 60s with a first-degree AV block. May 27, 2022 TTE Interpretation Summary ([facility], Dr. Richard): Sinus bradycardia in the 50s was present during the echocardiogram. There is severe concentric LVH. Left ventricular wall motion is normal. The left ventricular ejection fraction is 60 to 65%. There is a bioprosthetic aortic valve. There is borderline severe prosthetic aortic valve stenosis. Peak aortic valve velocity 3.7 m/s, mean gradient 28 mmHg. Calculated aortic valve area 0.9 cm. Mild to moderate aortic regurgitation. Severe mitral annular calcification. Dilated aortic root, 4 cm. Proximal ascending aorta not well visualized. As compared to the prior study from March 22, 2020, the indices of aortic valve stenosis are stable, without significant change. Review of Systems Review of Systems: Complete Review of Systems is as stated above, negative, or noncontributory. Physical Exam Physical Exam: General: A&Ox3. NAD. HENT: Normocephalic. Atraumatic. Eyes: PER. Conjunctiva pink, sclera pale. Neck: Transmitted systolic murmur versus bilateral carotid bruits. No JVD. No HJR. Heart: Regular at 60 bpm. Grade II/ systolic ejection murmur. Preserved S2. PMI is nondisplaced. Lungs: Dry bibasilar crackles. No wheeze. Abdomen: +BS. Soft. Nontender. No masses or organomegaly. Extremities: No clubbing, cyanosis, or edema. Limited neurological examination is without focal deficits. Pulses: radial=2/4, posterior tibial=0/4. Results & Data ([facility]) Vital Signs (Past 12 Hours) Vital Signs Temp Pulse Pulse Resp BP Pulse Ox O2 Del Method 05/28/22 08:32 36.4 C L 61 16 116/69 99 Room Air 05/28/22 04:17 36.4 C L 62 20 146/59 H Room Air, BiPAP 05/27/22 23:49 36.7 C 56 L 18 133/62 97 CPAP 05/27/22 23:07 71 Laboratory Results CBC 05/28/22 Range/Units 05:50 WBC 4.53 L (4.8-10.8) K/ul RBC 3.18 L (4.63-6.08) M/uL Hgb 10.0 L (14.0-18.0) g/dl Hct 28.7 L (40.1-51.0) % Plt Count 64 L (130-400) K/uL Comprehensive Metabolic Panel 05/27/22 05/27/22 05/28/22 Range/Units 11:56 14:46 05:50 Sodium 139 Cancelled 140 (136-145) mmol/L Potassium 5.4 H Cancelled 5.1 (3.5-5.1) mmol/L Chloride 111 H Cancelled 106 (98-107) mmol/L Carbon Dioxide 23 Cancelled 29 (21-32) mmol/L BUN 92 H Cancelled 85 H (6-23) mg/dl Creatinine 2.30 H Cancelled 2.38 H (0.6-1.4) mg/dl Glucose 126 H Cancelled 141 H (70-99(Fasting)) mg/dl Calcium 9.3 Cancelled 8.6 (8.5-10.1) mg/dl Albumin 3.5 Cancelled (3.4-5.0) gm/dl Intake and Output 05/27/22 05/28/22 05/28/22 22:59 06:59 14:59 Intake Total 1240 / 1595 90 / 1595 Output Total 800 / 1850 Balance 440 / -255 90 / -255 Intake: IV 1150 / 1415 Sodium Bicarbonate 8.4% 150 meq 1150 / 1150 In Dextrose 5% 1,000 ml @ 100 mls/hr IV .[id number] [facility] Rx#: [id number] Oral 90 / 180 90 / 180 Output: Urine 800 / 1850 Other: # Unmeasured Voids 2 1 Weight 93.8 kg Weight Measurement Method Standing Scale
--- NOTE | 2022-05-28 09:36 | Nephrology Progress Note ---
Date of Service May 28, 2022 Assessment & Plan Admission and Anticipated Discharge Date Admission Date: May 26, 2022 Subjective S--nonew issues. HR low 60 with 1deg HB. No SOb. PHYSICAL EXAMINATION: GENERAL: Elderly white male who is not in any overt respiratory distress. He is awake, alert, oriented x3 and was able to give me a detailed account of his medical history. VITAL SIGNS: Most recent vital signs show blood pressure 150/52, pulse rate 52, temperature 36.3, 95% on room air, respiratory rate 18. HEENT: Mucous membranes are moist. NECK: Supple. No jugular venous distention. CHEST: Bilateral clear to auscultation. CARDIOVASCULAR: S1 and S2, regular. Grade II/ systolic murmur heard. ABDOMEN: Soft, nontender. EXTREMITIES: Shows no edema. NEUROLOGICALLY: Awake, alert, oriented x3, normal speech. LABORATORY TEST: Creat stuck around 2.3 and 2.4 now. ASSESSMENT AND PLAN: An 81-year-old male with extensive cardiac history as well as CKD stage IIIB, with a baseline creatinine around 1.9. Now admitted with abnormal labs showing [id number] renal failure, hyperkalemia and bradycardia. 1. [id number]-wu-[id number] renal failure. 2. Bradycardia. Rec: Continue to hold BB, SHANNAN/ARB Chlorthalidone for now. Creat stuck around 2.3--2.4--maybe new baseline. will follow that outpt. e/u Nephrology with dr stephenson in 1-2 weeks. Results & Data ([facility]) Vital Signs (Past 12 Hours) Vital Signs Temp Pulse Pulse Resp BP Pulse Ox O2 Del Method 05/28/22 08:32 36.4 C L 61 16 116/69 99 Room Air 05/28/22 04:17 36.4 C L 62 20 146/59 H Room Air, BiPAP 05/27/22 23:49 36.7 C 56 L 18 133/62 97 CPAP 05/27/22 23:07 71
[2022-05-28] MEDS: SODIUM BICARBONATE 8.4% 150 MEQ in DEXTROSE 5% 1,000 ML IV SCH (10:54)
--- NOTE | 2022-05-28 13:28 | Hospitalist Progress Note ---
Date of Service May 28, 2022 Assessment & Plan (1) Acute hyperkalemia: Plan: CONCEPCION on CKD III Likely prerenal Non Anion gap metabolic acidosis Creatinine has been improving Renal USD: Bilateral renal cyst without hydronephrosis. Bladder wall thickening with diverticula compatible with chronic outlet obstruction Continue IV fluids Lisinopril and chlorthalidone have been on hold and will not be restarted until being evaluated by nephrology as an outpatient Appreciate Nephrology Input Clinically stable Hyperkalemia Secondary to above Potassium:6.7>6.2>5.4 Received Calcium gluconate, Lasix Continue IV bicarbonate -which has been discontinued as of 05/28/2022 Low potassium diet Electrolytes have been normalized Bradycardia Asymptomatic Hold Atenolol Check ECHO -showed severe concentric LVH, LV wall motion is normal, LVEF 60 to 65%, bioprosthetic aortic valve with severe prosthetic aortic valve stenosis, mild to moderate aortic regurgitation, severe mitral annular calcification, aortic root is mildly dilated at 4 cm, proximal ascending aorta is not visualized Monitor electrolytes -normalized Appreciate cardiology input and recommendation Diarrhea Unclear etiology Stool studies if recurrence of diarrhea Monitor volume status Chronic diastolic heart failure Last EF 60 to 64%, TTE 2021 No sign of volume overload Severe bioprosthetic AVR stenosis Monitor volume status completely Will not be started on lisinopril and chlorthalidone Hypertension BP remains on the upper side at 150/67 Will need to hold lisinopril and chlorthalidone and beta-fernando is already on hold Will add amlodipine 5 mg from tomorrow if beta-fernando is not started by the administrative resident Hyperlipidemia on statin DM II HbA1C: 6.06 Aug 2021 Hold PO meds Continue Insulin while hospitalized Monitor BGs H/O NAFLD cirrhosis No overt decompensation Anemia of Chronic disease Thrombocytopenia No bleeding issues Hb drop likely dilutional due to IV fluids Monitor CBC-remains stable at 10 DVT Px: SCDs Re: Thrombocytopenia Code Status Full code Admission and Anticipated Discharge Date Admission Date: May 26, 2022 Subjective 05/28/2022 The patient was seen and examined in telemetry unit He has been feeling much better and is out of bed on a chair Denies any cardiac symptomsno chest pain, palpitation or shortness of breath Review of Systems Review of Systems: All systems reviewed and are unremarkable except as noted below Physical Exam Physical Exam: Sitting on a chair without any acute distress Constitutional: well developed, well nourished and + obese; not ill appearing Eyes: PERRL, conjunctivae normal, anicteric sclerae ENMT: external ear and nose normal, oropharynx normal Neck: trachea midline, no thyromegaly Respiratory: no respiratory distress Auscultation: lungs clear to auscultation bilaterally Cardiovascular: Rate/Rhythm: regular rate and regular rhythm; not bradycardic and not tachycardic Heart Sounds: normal S1, normal S2 and + murmur (2/6 ESM over aortic area) Extremities: no edema Gastrointestinal (Abdomen): Inspection/Auscultation: normal bowel sounds; abdomen not distended Percussion/Palpation: abdomen soft; abdomen nontender Musculoskeletal: No acute arthritis in any joint Neurologic: Alert, awake and oriented x3. No focal sensory or no motor deficit appreciated Psychiatric: A+Ox3, euthymic affect Lymphatic: no cervical or axillary lymphadenopathy Results & Data Results & Data ([facility]) Vital Signs (Past 12 Hours) Vital Signs Temp Pulse Resp BP Pulse Ox O2 Del Method 05/28/22 12:33 36.4 C L 62 16 150/67 H 94 Room Air 05/28/22 08:32 36.4 C L 61 16 116/69 99 Room Air 05/28/22 04:17 36.4 C L 62 20 146/59 H Room Air, BiPAP Laboratory Results Short CBC 05/28/22 Range/Units 05:50 WBC 4.53 L (4.8-10.8) K/ul Hgb 10.0 L (14.0-18.0) g/dl Hct 28.7 L (40.1-51.0) % Plt Count 64 L (130-400) K/uL BMP 05/27/22 05/27/22 05/28/22 11:56 14:46 05:50 Sodium 139 Cancelled 140 Potassium 5.4 H Cancelled 5.1 Chloride 111 H Cancelled 106 Carbon Dioxide 23 Cancelled 29 BUN 92 H Cancelled 85 H Creatinine 2.30 H Cancelled 2.38 H Glucose 126 H Cancelled 141 H Calcium 9.3 Cancelled 8.6 Liver Function 05/27/22 05/27/22 Range/Units 11:56 14:46 Albumin 3.5 Cancelled (3.4-5.0) gm/dl Medications Administered Current Inpatient Medications Acetaminophen (Acetaminophen 325 Mg Tab) 325 mg PO QID PRN PRN Reason: Pain Stop: 06/25/22 23:22 Allopurinol (Allopurinol 100 Mg Tab) 100 mg PO DAILY KETAN Stop: 06/26/22 08:59 Last Admin: 05/28/22 08:28 Dose: 100 mg Aspirin (Aspirin 81 Mg Ectab) 81 mg PO DAILY KETAN Stop: 06/26/22 08:59 Last Admin: 05/28/22 08:45 Dose: 81 mg Atorvastatin Calcium (Atorvastatin 40 Mg Tab) 40 mg PO DAILY KETAN Stop: 06/26/22 08:59 Last Admin: 05/28/22 08:29 Dose: 40 mg Cyanocobalamin (Cyanocobalamin (B-12) 500 Mcg Tablet) 500 mcg PO DAILY KETAN Stop: 06/26/22 08:59 Last Admin: 05/28/22 08:29 Dose: 500 mcg Dextrose (Dextrose 50% 50 Ml Syringe) 25 - 50 ml IV UD PRN; Protocol PRN Reason: Hypoglycemia Protocol Stop: 06/25/22 22:53 Folic Acid (Folic Acid 400 Mcg Tab) 800 mcg PO DAILY KETAN Stop: 06/26/22 08:59 Last Admin: 05/28/22 08:29 Dose: 800 mcg Glucagon (Glucagon For Inj 1 Mg Vial) 1 mg SQ UD PRN; Protocol PRN Reason: Hypoglycemia Protocol Stop: 06/25/22 22:53 Glucose (Glucose 40% Gel 15 Gm Tube) 15 - 30 gm PO UD PRN; Protocol PRN Reason: Hypoglycemia Protocol Stop: 06/25/22 22:53 Glucose (Glucose 10 Tab/Tube) 4 - 8 tab PO UD PRN; Protocol PRN Reason: Hypoglycemia Treatment Stop: 06/25/22 22:53 Promethazine HCl 12.5 mg/ (Sodium Chloride) 50.5 mls @ 202 mls/hr IV Q6H PRN PRN Reason: Nausea And Vomiting Stop: 06/25/22 22:53 Insulin Aspart (Insulin Aspart Per Unit) 0 units SC ACHS KETAN Stop: 06/25/22 22:53 Last Admin: 05/28/22 12:03 Dose: 2 units Miscellaneous (Carbohydrates For Hypoglycemia ) 15 - 30 gm PO UD PRN PRN Reason: Hypoglycemia Protocol Stop: 06/25/22 22:53 Oxycodone HCl (Oxycodone Hcl Ir 5 Mg Tab (Immediate Release)) 5 mg PO Q4H PRN PRN Reason: Pain Stop: 06/09/22 22:53 Thiamine HCl (Thiamine Hcl 100 Mg Tab) 100 mg PO DAILY KETAN Stop: 06/26/22 08:59 Last Admin: 05/28/22 08:29 Dose: 100 mg
--- NOTE | 2022-05-28 21:23 | Electrocardiogram Report ---
Test Reason : Blood Pressure : / mmHG Vent. Rate : 047 BPM Atrial Rate : 046 BPM P-R Int : 288 ms QRS Dur : 098 ms QT Int : 436 ms P-R-T Axes : 000 040 050 degrees QTc Int : 392 ms Sinus bradycardia with 1st degree A-V block Cannot rule out Anterior infarct , age undetermined Abnormal ECG When compared with ECG of 27-APR-2020 15:15, QT has shortened Confirmed by Ariel Ziegler ([id number]) on 05/28/2022 9:23:16 PM Referred By: Confirmed By:Ariel Ziegler
--- NOTE | 2022-05-28 23:51 | Electrocardiogram Report ---
Test Reason : Blood Pressure : / mmHG Vent. Rate : 052 BPM Atrial Rate : 051 BPM P-R Int : 252 ms QRS Dur : 092 ms QT Int : 430 ms P-R-T Axes : 000 041 054 degrees QTc Int : 399 ms Sinus bradycardia with 1st degree A-V block When compared with ECG of 26-MAY-2022 14:08, No significant change was found Confirmed by Ariel Ziegler ([id number]) on 05/28/2022 11:50:58 PM Referred By: Jermaine Calero Confirmed By:Ariel Ziegler
--- NOTE | 2022-05-29 06:50 | Electrocardiogram Report ---
Test Reason : Blood Pressure : / mmHG Vent. Rate : 054 BPM Atrial Rate : 054 BPM P-R Int : 328 ms QRS Dur : 090 ms QT Int : 476 ms P-R-T Axes : 000 043 051 degrees QTc Int : 451 ms Sinus bradycardia with 1st degree A-V block Abnormal ECG When compared with ECG of 27-MAY-2022 09:54, QT has lengthened Confirmed by Ariel Ziegler ([id number]) on 05/29/2022 6:50:17 AM Referred By: Jermaine Calero Confirmed By:Ariel Ziegler
[2022-05-29 06:54] LABS: BUN Creatinine Ratio 40.9 (10-20); Calcium 8.4 mg/dl (8.5-10.1); Creatinine Clr Calc Pharmacy 36.3 ml/min; Est GFR (African American) 37.9 ml/min; Est GFR (Non-African American) 32.7 ml/min; Magnesium 1.4 mg/dl (1.7-2.4); Potassium 4.6 mmol/L (3.5-5.1)
[2022-05-29 06:56] LABS: Hematocrit (blood only) 29.5 % (40.1-51.0); Mean Corpuscular Hemoglobin 30.9 pg (25.0-34.0); Mean Corpuscular Hgb Conc 33.9 g/dL (32.0-36.0); Mean Platelet Volume 9.6 fL (9.4-12.4); Platelet Count 62 K/uL (130-400); RDW Coefficient of Variation 14.1 % (11.5-14.5); RDW Standard Deviation 46.9 fL (36.4-46.3); Red Blood Count 3.24 M/uL (4.63-6.08); White Blood Count 4.51 K/ul (4.8-10.8)
[2022-05-29 06:57] LABS: Basophils # (auto) 0.03 K/uL (0-0.2); Basophils % (auto) 0.7 %; Eosinophils # (auto) 0.27 K/uL (0-0.50); Immature Granulocytes # (auto) 0.01 K/uL (0.00-0.02); Immature Granulocytes % (auto) 0.2 %; Lymphocytes # (auto) 1.32 K/uL (1.2-3.4); Lymphocytes % (auto) 29.3 %; Monocytes % (auto) 11.1 %; Neutrophils # (auto) 2.38 K/uL (1.4-6.5); Neutrophils % (auto) 52.7 %
[2022-05-29] MEDS ORDERED: MAGNESIUM SULFATE / D5W 1 GM/100 ML BAG IV ONE (07:52)
[2022-05-29] MEDS: ASPIRIN 81 MG ECTAB PO SCH (08:15)
[2022-05-29] MEDS: FOLIC ACID 400 MCG TAB PO SCH (08:16)
[2022-05-29] MEDS: ATORVASTATIN 40 MG TAB PO SCH (08:16)
[2022-05-29] MEDS: CYANOCOBALAMIN (B-12) 500 MCG TABLET PO SCH (08:16)
[2022-05-29] MEDS: allopurinoL 100 MG TAB PO SCH (08:16)
[2022-05-29] MEDS: THIAMINE HCL 100 MG TAB PO SCH (08:16)
[2022-05-29] MEDS: INSULIN ASPART PER UNIT SC SCH ×2 (08:21→12:03)
--- NOTE | 2022-05-29 09:27 | Hospitalist Progress Note ---
Date of Service May 29, 2022 Assessment & Plan (1) Acute hyperkalemia: Plan: CONCEPCION on CKD III Likely prerenal Non Anion gap metabolic acidosis Creatinine has been improving Renal USD: Bilateral renal cyst without hydronephrosis. Bladder wall thickening with diverticula compatible with chronic outlet obstruction Continue IV fluids Lisinopril and chlorthalidone have been on hold and will not be restarted until being evaluated by nephrology as an outpatient Appreciate Nephrology Input Kidney function seems to be at his baseline Hyperkalemia Secondary to above Potassium:6.7>6.2>5.4 Received Calcium gluconate, Lasix Continue IV bicarbonate -which has been discontinued as of 05/28/2022 Low potassium diet Electrolytes have been normalized Magnesium supplemented Bradycardia Asymptomatic Hold Atenolol Check ECHO -showed severe concentric LVH, LV wall motion is normal, LVEF 60 to 65%, bioprosthetic aortic valve with severe prosthetic aortic valve stenosis, mild to moderate aortic regurgitation, severe mitral annular calcification, aortic root is mildly dilated at 4 cm, proximal ascending aorta is not visualized Monitor electrolytes -normalized Appreciate cardiology input and recommendation Awaiting cardiology evaluation today and possible discharge following that Diarrhea Unclear etiology Stool studies if recurrence of diarrhea Monitor volume status Chronic diastolic heart failure Last EF 60 to 64%, TTE 2021 No sign of volume overload Severe bioprosthetic AVR stenosis Monitor volume status completely Will not be started on lisinopril and chlorthalidone Hypertension BP remains on the upper side at 150/67 Will need to hold lisinopril and chlorthalidone and beta-fernando is already on hold Will add amlodipine 5 mg from tomorrow if beta-fernando is not started by the operations specialist Blood pressure is stable Hyperlipidemia on statin DM II HbA1C: 6.06 Aug 2021 Hold PO meds Continue Insulin while hospitalized Monitor BGs H/O NAFLD cirrhosis No overt decompensation Anemia of Chronic disease Thrombocytopenia No bleeding issues Hb drop likely dilutional due to IV fluids Monitor CBC-remains stable at 10 DVT Px: SCDs Re: Thrombocytopenia Code Status Full code Likely discharged this afternoon Admission and Anticipated Discharge Date Admission Date: May 26, 2022 Subjective 05/28/2022 The patient was seen and examined in telemetry unit He has been feeling much better and is out of bed on a chair Denies any cardiac symptomsno chest pain, palpitation or shortness of breath 05/29/2022 The patient was seen and examined in telemetry unit He has been stable and denies any symptoms No significant arrhythmia noted He wants to go home today Review of Systems Review of Systems: All systems reviewed and are unremarkable except as noted below Physical Exam Physical Exam: Sitting on a chair without any acute distress Constitutional: well developed, well nourished and + obese; not ill appearing Eyes: PERRL, conjunctivae normal, anicteric sclerae ENMT: external ear and nose normal, oropharynx normal Neck: trachea midline, no thyromegaly Respiratory: no respiratory distress Auscultation: lungs clear to auscultation bilaterally Cardiovascular: Rate/Rhythm: regular rate and regular rhythm; not bradycardic and not tachycardic Heart Sounds: normal S1, normal S2 and + murmur (2/6 ESM over aortic area) Extremities: no edema Gastrointestinal (Abdomen): Inspection/Auscultation: normal bowel sounds; abdomen not distended Percussion/Palpation: abdomen soft; abdomen nontender Musculoskeletal: No acute arthritis involving any joint Neurologic: Alert, awake and oriented x3. No focal sensory and motor deficit appreciated Psychiatric: A+Ox3, euthymic affect Lymphatic: no cervical or axillary lymphadenopathy Results & Data Results & Data ([facility]) Vital Signs (Past 12 Hours) Vital Signs Temp Pulse Pulse Resp BP Pulse Ox O2 Del Method 05/29/22 08:12 36.5 C 77 148/64 H 98 Room Air 05/29/22 03:24 36.7 C 55 L 16 121/57 L 98 Room Air, BiPAP 05/28/22 23:17 53 L 05/28/22 23:03 36.7 C 54 L 20 133/52 L 96 CPAP Laboratory Results Short CBC 05/29/22 Range/Units 05:52 WBC 4.51 L (4.8-10.8) K/ul Hgb 10.0 L (14.0-18.0) g/dl Hct 29.5 L (40.1-51.0) % Plt Count 62 L (130-400) K/uL BMP 05/29/22 05:57 Sodium 139 Potassium 4.6 Chloride 106 Carbon Dioxide 27 BUN 76 H Creatinine 1.86 H D Glucose 114 H Calcium 8.4 L Medications Administered Current Inpatient Medications Acetaminophen (Acetaminophen 325 Mg Tab) 325 mg PO QID PRN PRN Reason: Pain Stop: 12/21/22 23:22 Allopurinol (Allopurinol 100 Mg Tab) 100 mg PO DAILY [facility] Stop: 06/26/22 08:59 Last Admin: 05/29/22 08:16 Dose: 100 mg Aspirin (Aspirin 81 Mg Ectab) 81 mg PO DAILY KETAN Stop: 06/26/22 08:59 Last Admin: 05/29/22 08:15 Dose: 81 mg Atorvastatin Calcium (Atorvastatin 40 Mg Tab) 40 mg PO DAILY KETAN Stop: 06/26/22 08:59 Last Admin: 05/29/22 08:16 Dose: 40 mg Cyanocobalamin (Cyanocobalamin (B-12) 500 Mcg Tablet) 500 mcg PO DAILY KETAN Stop: 06/26/22 08:59 Last Admin: 05/29/22 08:16 Dose: 500 mcg Dextrose (Dextrose 50% 50 Ml Syringe) 25 - 50 ml IV UD PRN; Protocol PRN Reason: Hypoglycemia Protocol Stop: 06/25/22 22:53 Folic Acid (Folic Acid 400 Mcg Tab) 800 mcg PO DAILY KETAN Stop: 06/26/22 08:59 Last Admin: 05/29/22 08:16 Dose: 800 mcg Glucagon (Glucagon For Inj 1 Mg Vial) 1 mg SQ UD PRN; Protocol PRN Reason: Hypoglycemia Protocol Stop: 06/25/22 22:53 Glucose (Glucose 40% Gel 15 Gm Tube) 15 - 30 gm PO UD PRN; Protocol PRN Reason: Hypoglycemia Protocol Stop: 06/25/22 22:53 Glucose (Glucose 10 Tab/Tube) 4 - 8 tab PO UD PRN; Protocol PRN Reason: Hypoglycemia Treatment Stop: 06/25/22 22:53 Promethazine HCl 12.5 mg/ (Sodium Chloride) 50.5 mls @ 202 mls/hr IV Q6H PRN PRN Reason: Nausea And Vomiting Stop: 06/25/22 22:53 Magnesium Sulfate/Dextrose (Magnesium Sulfate / D5w) 1 gm in 100 mls @ 50 mls/hr IV ONE ONE Stop: 05/29/22 09:51 Last Admin: 05/29/22 08:26 Dose: 50 mls/hr Insulin Aspart (Insulin Aspart Per Unit) 0 units SC ACHS [facility] Stop: 06/25/22 22:53 Last Admin: 05/29/22 08:21 Dose: Not Given Miscellaneous (Carbohydrates For Hypoglycemia ) 15 - 30 gm PO UD PRN PRN Reason: Hypoglycemia Protocol Stop: 06/25/22 22:53 Oxycodone HCl (Oxycodone Hcl Ir 5 Mg Tab (Immediate Release)) 5 mg PO Q4H PRN PRN Reason: Pain Stop: 06/09/22 22:53 Thiamine HCl (Thiamine Hcl 100 Mg Tab) 100 mg PO DAILY KETAN Stop: 06/26/22 08:59 Last Admin: 05/29/22 08:16 Dose: 100 mg
--- NOTE | 2022-05-29 09:49 | Nephrology Progress Note ---
Date of Service May 29, 2022 Assessment & Plan (1) CONCEPCION (acute kidney injury): Plan: Patient with acute kidney injury on CKD which was likely hemodynamically media charli. Creatinine is down to 1.86 which is close to his baseline. Electrolytes are stable but now has crackles. -From renal standpoint patient can be discharged on home dose of diuretics. -Continue to hold Jardiance continue outpatient follow-up (2) CKD (chronic kidney disease): Plan: Patient with CKD stage IIIb baseline creatinine of 1.8. He will need renal follow-up with Dr. Alonso in 1 to 2 weeks after discharge Admission and Anticipated Discharge Date Admission Date: May 26, 2022 Subjective Seen for CONCEPCION on CKD. He feels better today. No shortness of breath or leg swelling. Creatinine downtrending. Review of Systems Review of Systems: All other systems were reviewed and negative except as no charli in HPI Physical Exam Physical Exam: General exam: Appears comfortable, no acute distress HEENT: Pupils are equal and reactive to light Neck: No JVD, neck is supple trachea is midline Respiratory system: Crackles bilaterally. Gastrointestinal: Abdomen is soft, non distended, non tender, bowel sounds are present CVS: Regular rate and rhythm. No murmurs, rubs or gallops Musculoskeletal: No joint or muscle tenderness Extremities: Non tender, no edema, peripheral pulses are present Neuro: Oriented, no tremors, no focal neurological deficits Skin: No rashes Results & Data ([facility]) Vital Signs (Past 12 Hours) Vital Signs Temp Pulse Pulse Resp BP Pulse Ox O2 Del Method 05/29/22 08:12 36.5 C 77 148/64 H 98 Room Air 05/29/22 03:24 36.7 C 55 L 16 121/57 L 98 Room Air, BiPAP 05/28/22 23:17 53 L 05/28/22 23:03 36.7 C 54 L 20 133/52 L 96 CPAP Laboratory Results 05/29/22 05:57 05/29/22 05/29/22 05:52 05:57 WBC 4.51 L RBC 3.24 L MCV 91.0 MCH 30.9 MCHC 33.9 RDW Std Deviation 46.9 H RDW Coeff of Efe 14.1 Plt Count 62 L MPV 9.6 Phosphorus 4.0 (1) CKD (chronic kidney disease) Chronic kidney disease stage: unspecified stage Qualified Code(s): N18.9 - Chronic kidney disease, unspecified
--- NOTE | 2022-05-29 11:31 | Cardiology Progress Note ---
Date of Service May 29, 2022 Assessment & Plan (1) CONCEPCION (acute kidney injury): (2) Acute hyperkalemia: (3) Generalized weakness: (4) Bradycardia: (5) Prosthetic aortic valve stenosis: (6) HTN, goal below 130/80: (7) Dyslipidemia, goal LDL below 70: Plan I reviewed the patient's telemetry. He is maintaining sinus rhythm with heart rates in the 50s during rest. At this point I feel the patient can be discharged home off of atenolol. No additional beta-blockers at this time. The patient has a follow-up visit with us on 02 June which he should keep. He is to be evaluated for a potential YAMILKA for his prosthetic aortic valve stenosis. Admission and Anticipated Discharge Date Admission Date: May 26, 2022 Subjective Uneventful night for the patient. Review of Systems Review of Systems: Complete Review of Systems is as stated above, negative, or noncontributory. Physical Exam Physical Exam: General: no acute distress and stated age Head: normocephalic, no masses, lesions, tenderness or abnormalities Eyes: conjunctiva are pink and non-injected, sclera clear Neck: supple, no adenopathy, no bruits, normal jugular venous pulse, no hepatoj ugular reflux Chest: normal shape and normal respiratory effort Lungs: clear to auscultation and percussion Cardiac Exam: - regular rate & rhythm, no murmurs gallops or rubs - normal S1, normal S2 Pulses: 2(+) throughout Abdomen: abdomen soft, non-tender, no abnormal masses and no hepatosplenomegaly Musculoskeletal: no gait disturbance, no joint inflammation, no deforming arthritis Extremities: no edema and no cyanosis Neuro: grossly normal exam Results & Data ([facility]) Vital Signs (Past 12 Hours) Vital Signs Temp Pulse Resp BP Pulse Ox O2 Del Method 05/29/22 08:12 36.5 C 77 148/64 H 98 Room Air 05/29/22 03:24 36.7 C 55 L 16 121/57 L 98 Room Air, BiPAP Laboratory Results Laboratory Results - last 24 hr 05/28/22 05/28/22 05/28/22 11:37 16:36 20:12 WBC RBC Hgb Hct MCV MCH MCHC RDW Std Deviation RDW Coeff of Efe Plt Count MPV Immature Gran % (Auto) Neut % (Auto) Lymph % (Auto) [place] % (Auto) Eos % (Auto) Baso % (Auto) Neut # (Auto) Lymph # (Auto) [place] # (Auto) Eos # (Auto) Baso # (Auto) Immature Gran # (Auto) Sodium Potassium Chloride Carbon Dioxide Anion Gap BUN Creatinine Est Cr Clr Drug Dosing Est GFR ( Amer) Est GFR (Non-Af Amer) BUN/Creatinine Ratio Glucose POC Glucose 166 H 105 H 147 H Calcium Phosphorus Magnesium 05/29/22 05/29/22 05/29/22 05:52 05:57 07:25 WBC 4.51 L RBC 3.24 L Hgb 10.0 L Hct 29.5 L MCV 91.0 MCH 30.9 MCHC 33.9 RDW Std Deviation 46.9 H RDW Coeff of Efe 14.1 Plt Count 62 L MPV 9.6 Immature Gran % (Auto) 0.2 Neut % (Auto) 52.7 Lymph % (Auto) 29.3 [place] % (Auto) 11.1 Eos % (Auto) 6.0 Baso % (Auto) 0.7 Neut # (Auto) 2.38 Lymph # (Auto) 1.32 [place] # (Auto) 0.50 Eos # (Auto) 0.27 Baso # (Auto) 0.03 Immature Gran # (Auto) 0.01 Sodium 139 Potassium 4.6 Chloride 106 Carbon Dioxide 27 Anion Gap 6 BUN 76 H Creatinine 1.86 H D Est Cr Clr Drug Dosing 36.3 Est GFR ( Amer) 37.9 Est GFR (Non-Af Amer) 32.7 BUN/Creatinine Ratio 40.9 H Glucose 114 H POC Glucose 118 H Calcium 8.4 L Phosphorus 4.0 Magnesium 1.4 L Medications Administered Current Inpatient Medications Acetaminophen (Acetaminophen 325 Mg Tab) 325 mg PO QID PRN PRN Reason: Pain Stop: 06/25/22 23:22 Allopurinol (Allopurinol 100 Mg Tab) 100 mg PO DAILY KETAN Stop: 06/26/22 08:59 Last Admin: 05/29/22 08:16 Dose: 100 mg Aspirin (Aspirin 81 Mg Ectab) 81 mg PO DAILY KETAN Stop: 06/26/22 08:59 Last Admin: 05/29/22 08:15 Dose: 81 mg Atorvastatin Calcium (Atorvastatin 40 Mg Tab) 40 mg PO DAILY KETAN Stop: 06/26/22 08:59 Last Admin: 05/29/22 08:16 Dose: 40 mg Cyanocobalamin (Cyanocobalamin (B-12) 500 Mcg Tablet) 500 mcg PO DAILY KETAN Stop: 06/26/22 08:59 Last Admin: 05/29/22 08:16 Dose: 500 mcg Dextrose (Dextrose 50% 50 Ml Syringe) 25 - 50 ml IV UD PRN; Protocol PRN Reason: Hypoglycemia Protocol Stop: 06/25/22 22:53 Folic Acid (Folic Acid 400 Mcg Tab) 800 mcg PO DAILY KETAN Stop: 06/26/22 08:59 Last Admin: 05/29/22 08:16 Dose: 800 mcg Glucagon (Glucagon For Inj 1 Mg Vial) 1 mg SQ UD PRN; Protocol PRN Reason: Hypoglycemia Protocol Stop: 06/25/22 22:53 Glucose (Glucose 40% Gel 15 Gm Tube) 15 - 30 gm PO UD PRN; Protocol PRN Reason: Hypoglycemia Protocol Stop: 06/25/22 22:53 Glucose (Glucose 10 Tab/Tube) 4 - 8 tab PO UD PRN; Protocol PRN Reason: Hypoglycemia Treatment Stop: 06/25/22 22:53 Promethazine HCl 12.5 mg/ (Sodium Chloride) 50.5 mls @ 202 mls/hr IV Q6H PRN PRN Reason: Nausea And Vomiting Stop: 06/25/22 22:53 Insulin Aspart (Insulin Aspart Per Unit) 0 units SC ACHS REPLACED BY [facility] Stop: 06/25/22 22:53 Last Admin: 05/29/22 08:21 Dose: Not Given Miscellaneous (Carbohydrates For Hypoglycemia ) 15 - 30 gm PO UD PRN PRN Reason: Hypoglycemia Protocol Stop: 06/25/22 22:53 Oxycodone HCl (Oxycodone Hcl Ir 5 Mg Tab (Immediate Release)) 5 mg PO Q4H PRN PRN Reason: Pain Stop: 06/09/22 22:53 Thiamine HCl (Thiamine Hcl 100 Mg Tab) 100 mg PO DAILY REPLACED BY [facility] Stop: 06/26/22 08:59 Last Admin: 05/29/22 08:16 Dose: 100 mg
--- NOTE | 2022-05-29 15:02 | Discharge Summary ---
Date of Service May 29, 2022 Admission HPI Per Admitting Provider History obtained from patient and records. Medical history significant for chronic diastolic heart failure (EF 60 to 64%, TTE 2021), severe bioprosthetic AVR stenosis, mild MR, hypertension, hyperlipidemia, DM2 on oral medications, NAFLD cirrhosis, SANDI on CPAP, CRI (patient creatinine 1.9 ), chronic anemia (baseline hemoglobin of 11), chronic thrombocytopenia. Last confinement April 2020 for recurrent right-sided pneumothorax status post chest tube placement. Patient seen on follow-up visit at [facility] [place] today. Heart rate noted to be 40s at the office. Patient without any symptoms. Patient atenolol decreased from 50 to 25 mg daily. Stat labs ordered by provider. Patient told to hold chlorthalidone and lisinopril until labs resulted. Serum potassium noted to be 6.7, serum creatinine 3.2. Patient directed to ER for evaluation. Calcium gluconate, NSS, IV insulin administered for hyperkalemia. Patient asymptomatic. Denies OTC NSAID intake. 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 Admission Exam Per Admitting Provider Physical Exam: GENERAL: Comfortable, pleasant, looks younger for stated age, no respiratory distress SKIN: Normal color, warm HEENT: [place] palpebral conjunctivae, no ptosis, moist buccal mucosa NECK : Supple, no tenderness CHEST : CTA, no tenderness HEART : Bradycardic, systolic murmur ABDOMEN: Some distention, nontender EXTREMITIES : No LE swelling/tenderness, no other conspicuous deformities noted NEUROLOGIC : Coherent, no facial asymmetry, no other gross focality Principal Diagnosis CONCEPCION on CKD stage III, hyperkalemia, bradycardia, hypertension Discharge Exam Sitting on a chair without any acute distress Constitutional well developed, well nourished and + obese; not ill appearing Eyes PERRL, conjunctivae normal, anicteric sclerae ENMT external ear and nose normal, oropharynx normal Neck trachea midline, no thyromegaly Respiratory no respiratory distress Auscultation: lungs clear to auscultation bilaterally Cardiovascular Rate/Rhythm: regular rate and regular rhythm; not bradycardic and not tachycardic Heart Sounds: normal S1, normal S2 and + murmur (2/6 ESM over aortic area) Extremities: no edema Gastrointestinal (Abdomen) Inspection/Auscultation: normal bowel sounds; abdomen not distended Percussion/Palpation: abdomen soft; abdomen nontender Psychiatric A+Ox3, euthymic affect Lymphatic no cervical or axillary lymphadenopathy Discharge Data Allergies Allergy/AdvReac Type Severity Reaction Status Date / Time felodipine Allergy Intermediate HIVES Verified 05/26/22 16:08 Consultations 05/26/22 19:28 ED Decision to Admit Stat 05/26/22 22:54 Consult Nephrology Routine 05/27/22 13:49 Consult Cardiology Routine Ordered Studies 05/27/22 08:09 US renal/blad retro comp Routine Hospital Course (1) Acute hyperkalemia: CONCEPCION on CKD III Likely prerenal Non Anion gap metabolic acidosis Creatinine has been improving Renal USD: Bilateral renal cyst without hydronephrosis. Bladder wall thickening with diverticula compatible with chronic outlet obstruction Continue IV fluids Lisinopril and chlorthalidone have been on hold and will not be restarted until being evaluated by nephrology as an outpatient Appreciate Nephrology Input Kidney function seems to be at his baseline Hyperkalemia Secondary to above Potassium:6.7>6.2>5.4 Received Calcium gluconate, Lasix Continue IV bicarbonate -which has been discontinued as of 05/28/2022 Low potassium diet Electrolytes have been normalized Magnesium supplemented Bradycardia Asymptomatic Hold Atenolol Check ECHO -showed severe concentric LVH, LV wall motion is normal, LVEF 60 to 65%, bioprosthetic aortic valve with severe prosthetic aortic valve stenosis, mild to moderate aortic regurgitation, severe mitral annular calcification, aortic root is mildly dilated at 4 cm, proximal ascending aorta is not visualized Monitor electrolytes -normalized Appreciate cardiology input and recommendation Awaiting cardiology evaluation today and possible discharge following that Diarrhea Unclear etiology Stool studies if recurrence of diarrhea Monitor volume status Chronic diastolic heart failure Last EF 60 to 64%, TTE 2021 No sign of volume overload Severe bioprosthetic AVR stenosis Monitor volume status completely Will not be started on lisinopril and chlorthalidone Hypertension BP remains on the upper side at 150/67 Will need to hold lisinopril and chlorthalidone and beta-fernando is already on hold Will add amlodipine 5 mg from tomorrow if beta-fernando is not started by the tire inspector Blood pressure is stable Hyperlipidemia on statin DM II HbA1C: 6.06 Aug 2021 Hold PO meds Continue Insulin while hospitalized Monitor BGs H/O NAFLD cirrhosis No overt decompensation Anemia of Chronic disease Thrombocytopenia No bleeding issues Hb drop likely dilutional due to IV fluids Monitor CBC-remains stable at 10 DVT Px: SCDs Re: Thrombocytopenia Code Status Full code Likely discharged this afternoon Total Time Total Time Spent Total Time Spent (In Minutes): 35 minutes Discharge Plan Discharge Items Patient Disposition: Home - Self-Care Reason For Visit: HYPERKALEMIA, BRADYCARDIA Discharge Diagnosis: CONCEPCION on CKD stage III, hyperkalemia, bradycardia, hypertension Condition on Discharge: Good Activity: Resume your previous activity Non-emergency contact: Primary Care Provider Call non-emergency contact if: you have any medication questions and your symptoms worsen Follow-up/Referrals: Nick Edwards MD [Primary Care Provider] - (Your doctor's office will call you with an appointment within 7 days) Diet: Carb Consistent or DM2, Heart Healthy and Low Sodium (2gm) Addtl Attending Provider Instructions: Please take precautions to avoid fall Do not take any lisinopril and/or chlorthalidone Your atenolol and Jardiance have been stopped Please give appointment with your healthcare providers Your primary care doctor will start another medicine to control diabetes when appropriate Pending Studies at Discharge: No Stand-Alone Forms: My [employer], Smoking Cessation Medications and DC Order Prescriptions: Continued aspirin [Adult Low Dose Aspirin] 81 mg tablet,delayed release (DR/EC) 81 mg PO DAILY allopurinol 100 mg tablet 100 mg PO DAILY atorvastatin 40 mg tablet 40 mg PO DAILY cholecalciferol (vitamin D3) [Vitamin D3] 25 mcg (1,000 unit) Capsule 25 mcg PO DAILY thiamine HCl (vitamin B1) 100 mg Tablet 100 mg PO DAILY cyanocobalamin (vitamin B-12) 500 mcg Tablet 500 mcg PO DAILY furosemide 20 mg tablet 10 mg PO 3XWK acetaminophen 325 mg Capsule 325 mg PO QID PRN (Reason: Pain) folic acid 0.8 mg Capsule 0.8 mg PO DAILY Shingrix (PF) 50 mcg/0.5 mL Suspension For Reconstitution 0.5 ml IM USEASDIRECTD Rx Instructions: Every 60 - 180 days Discontinued atenolol 50 mg tablet 25 mg PO DAILY Jardiance 10 mg tablet 10 mg PO QAM Discharge Orders: Discharge Order (Routine); Ordered 05/29/22 Ordered By: Lori Anderson Admission Data Admit Date/Time: 05/26/22 21:41 Attending Provider: Lori Anderson Admit Provider: Conner Lazo Primary Care Provider: Nick Edwards Other Providers: Conner Lazo ; Diaz Elliott ; Lio Richard ; Manjit Gonzalez Other Interventions: Discharge Summary Assessment (RN) Last Done: 05/29/22 12:05
== END 2022-05-29 13:00 | disposition home or self-care (01) | DRG 683 ==
LOC: ED 13:51 → SUATTDRO 21:41 → 2E 21:41
DX: R00.1 Bradycardia, unspecified; N17.9 Acute kidney failure, unspecified; R19.7 Diarrhea, unspecified; K75.81 Nonalcoholic steatohepatitis (NASH); Z95.2 Presence of prosthetic heart valve; Y71.2 Prosthetic and other implants, materials and accessory cardiovascular devices associated with adverse incidents; T82.857A Stenosis of other cardiac prosthetic devices, implants and grafts, initial encounter; E78.5 Hyperlipidemia, unspecified; E87.5 Hyperkalemia; Z79.899 Other long term (current) drug therapy; D69.59 Other secondary thrombocytopenia; Z79.82 Long term (current) use of aspirin; Z79.84 Long term (current) use of oral hypoglycemic drugs; I34.81 Nonrheumatic mitral (valve) annulus calcification; D63.1 Anemia in chronic kidney disease; E87.20 Acidosis, unspecified; N18.32 Chronic kidney disease, stage 3b; I50.32 Chronic diastolic (congestive) heart failure; Z88.8 Allergy status to other drugs, medicaments and biological substances; I13.0 Hypertensive heart and chronic kidney disease with heart failure and stage 1 through stage 4 chronic kidney disease, or unspecified chronic kidney disease; E11.22 Type 2 diabetes mellitus with diabetic chronic kidney disease

== ENCOUNTER 2022-11-06 03:36 | Inpatient (IN) ==
[2022-11-06] MEDS ORDERED: hydrALAZINE HCL 20 MG/ML VIAL IV ONE (04:40)
[2022-11-06 04:44] LABS: Albumin Level 3.8 gm/dl (3.4-5.0); BUN Creatinine Ratio 25.5 (10-20); Calcium 9.1 mg/dl (8.6-10.3); Creatinine Clr Calc Pharmacy 41.9 ml/min; Est GFR (African American) 44.8 ml/min; Est GFR (Non-African American) 38.7 ml/min; Globulin 3.7 gm/dl (2.5-4.0); Magnesium 1.5 mg/dl (1.7-2.4); Potassium 4.2 mmol/L (3.5-5.1); Total Protein 7.5 gm/dl (6.0-8.3)
[2022-11-06 04:51] LABS: Troponin I High Sensitivity 24.1 pg/ml (0-20)
[2022-11-06 04:57] LABS: Basophils # (auto) 0.03 K/uL (0-0.2); Basophils % (auto) 0.4 %; Eosinophils # (auto) 0.31 K/uL (0-0.50); Eosinophils % (auto) 4.6 %; Hematocrit (blood only) 37.7 % (42.0-52.0); Hemoglobin 12.2 g/dl (14.0-18.0); Immature Granulocytes # (auto) 0.03 K/uL (0.01-0.20); Immature Granulocytes % (auto) 0.4 %; Lymphocytes # (auto) 1.78 K/uL (1.2-3.4); Lymphocytes % (auto) 26.6 %; Mean Corpuscular Hemoglobin 29.7 pg (25.0-34.0); Mean Corpuscular Hgb Conc 32.4 g/dL (32.0-36.0); Mean Corpuscular Volume 91.7 fL (80.0-100.0); Mean Platelet Volume 10.1 fL (9.4-12.4); Monocytes # (auto) 0.62 K/uL (0.11-0.59); Monocytes % (auto) 9.3 %; Neutrophils # (auto) 3.91 K/uL (1.40-6.50); Neutrophils % (auto) 58.7 %; Platelet Count 96 K/uL (130-400); RDW Coefficient of Variation 15.1 % (11.5-14.5); RDW Standard Deviation 50.1 fL (36.4-46.3); Red Blood Count 4.11 M/uL (4.70-6.10); White Blood Count 6.68 K/ul (4.8-10.8)
[2022-11-06 06:21] LABS: Adenovirus PCR Not Detected (NotDetected); Bordetella parapertussis PCR Not Detected (NotDetected); Bordetella pertussis PCR Not Detected (NotDetected); Chlamydia pneumoniae PCR Not Detected (NotDetected); Coronavirus 229E PCR Not Detected (NotDetected); Coronavirus CoV-2 (COVID19)PCR Not Detected (NotDetected); Coronavirus HKU1 PCR Not Detected (NotDetected); Coronavirus NL63 PCR Not Detected (NotDetected); Coronavirus OC43PCR Not Detected (NotDetected); Human Metapneumovirus PCR Not Detected (NotDetected); Influenza A PCR Not Detected (NotDetected); Influenza B PCR Not Detected (NotDetected); Mycoplasma pneumoniae PCR Not Detected (NotDetected); Parainfluenza Virus 1 PCR Not Detected (NotDetected); Parainfluenza Virus 2 PCR Not Detected (NotDetected); Parainfluenza Virus 3 PCR Not Detected (NotDetected); Parainfluenza Virus 4 PCR Not Detected (NotDetected); Respiratory Syncytial VirusPCR Not Detected (NotDetected); Rhinovirus/Enterovirus PCR Not Detected (NotDetected)
[2022-11-06] MEDS: MAGNESIUM SULFATE / D5W 1 GM/100 ML BAG IV SCH ×2 (06:43→08:53)
[2022-11-06] MEDS ORDERED: FUROSEMIDE 40 MG/4 ML VIAL IV STA (06:50)
[2022-11-06 06:52] LABS: Thyroid Stimulating Hormone 4.553 uIu/ml (0.300-4.500)
[2022-11-06] MEDS ORDERED: Heparin IV Adult Wt-Based Standard *NO* Bolus Protocol IV STA (06:52)
--- NOTE | 2022-11-06 06:52 | History & Physical Report ---
Date of Service November 06, 2022 Assessment & Plan (1) SOB (shortness of breath): Plan: Decompensated heart failure Underlying pulm hypertension Possible precipitants: Uncontrolled hypertension Valvular heart disease, history severe bioprosthetic AVR stenosis, mild to m oderate AR, mild MR Recurrent A-fib hyperlipidemia on statin Rx DM2 diet-controlled, well-controlled as of recent hemoglobin A1c of 6.1 last August 2021 hx NAFLD cirrhosis SANDI on CPAP CRI, creatinine at baseline chronic anemia, hemoglobin better than baseline chronic thrombocytopenia secondary to liver disease PCU Lasix, albumin Strict I/Os, daily weights, CHF education, fluid restriction Change low-dose Toprol-XL to Coreg Updated TTE given recurrent A-fib IV heparin for thromboembolic prophylaxis Cardiology consult Re: Decompensated heart failure, recurrent A-fib ISS BG goal 1 10-1 40, carb count coverage, update hemoglobin A1c DVT prophylaxis. IV heparin Full code Text document was generated using [employer] voice recognition software. It may contain grammatical or spelling errors. Kindly contact undersigned for clarification of any documentation item in question. History of Present Illness Chief Complaint: Shortness of breath Primary Care Provider: Nick Edwards MD History obtained from patient and records. Medical history significant for chronic diastolic heart failure (EF 60 to 65%, TTE 2021), severe bioprosthetic AVR stenosis, hx PAF as per records, valvular heart disease (mild to moderate AR, mild MR), pulmonary hypertension, hypertension, hyperlipidemia, DM2 diet-controlled, NAFLD cirrhosis, SANDI on CPAP, history recurrent right pneumothorax, CRI (patient creatinine 1.7), chronic anemia (baseline hemoglobin of 11), chronic thrombocytopenia, skin cancer as per records. Last confinement May 2022 for acute hyperkalemia. Lisinopril discontinued. Atenolol held upon discharge due to bradycardia during confinement. Low-dose Toprol-XL initiated outpatient due to PAF concerns. Few days history of worsening shortness of breath especially on exertion. No chest pain or cough symptoms. Mild ankle edema. No headache symptoms. Blood pressure kind of high at home as per patient. Patient compliant with home meds, denies dietary indiscretion, OTC NSAID intake, or unusual stress. SBP 190s to 200s upon arrival at the ER. IV hydralazine administered at the ER. 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 Allergies Allergy/AdvReac Type Severity Reaction Status Date / Time felodipine Allergy Intermediate HIVES Verified 11/06/22 07:56 Home Medications Medication Instructions Recorded Confirmed Type aspirin 81 mg tablet,delayed 81 mg PO DAILY 05/19/19 11/06/22 History release (Adult Low Dose Aspirin) allopurinol 100 mg tablet 100 mg PO DAILY 02/24/20 11/06/22 History atorvastatin 40 mg tablet 40 mg PO DAILY 02/24/20 11/06/22 History cholecalciferol (vitamin D3) 25 25 mcg PO DAILY 03/21/20 11/06/22 History mcg (1,000 unit) capsule (Vitamin D3) cyanocobalamin (vitamin B-12) 500 500 mcg PO DAILY 03/21/20 11/06/22 History mcg tablet thiamine HCl (vitamin B1) 100 mg 100 mg PO DAILY 03/21/20 11/06/22 History tablet acetaminophen 325 mg capsule 325 mg PO QID PRN Pain 05/26/22 11/06/22 History folic acid 0.8 mg capsule 0.8 mg PO DAILY 05/26/22 11/06/22 History furosemide 20 mg tablet 20 mg PO DAILY 05/26/22 11/06/22 History varicella-zoster glycoE [id number] 0.5 ml IM USEASDIRECTD 05/26/22 11/06/22 History adj(PF) 50 mcg/0.5 mL IM susp, kit (Shingrix (PF)) metoprolol succinate 25 mg 12.5 mg PO DAILY 11/06/22 11/06/22 History tablet,extended release 24 hr Past Med/Surg History Medical History Chronic deep vein thrombosis (DVT) CKD (chronic kidney disease) stage 3, GFR 30-59 ml/min Diabetes HLD (hyperlipidemia) Hypoxemia SANDI on CPAP Psoriasis Recurrent spontaneous pneumothorax Sleep apnea with use of continuous positive airway pressure (CPAP) Steatohepatitis, non-alcoholic Vitamin D deficiency Surgical History History of aortic valve replacement History of colonoscopy History of hernia repair Rupture quadriceps tendon Family History Brother Heart disease CABG 2014 Father , 61 COPD (chronic obstructive pulmonary disease) Social History Smoking Status: Never smoker Hx Alcohol Use: Yes Alcohol type: beer and wine Hx Substance Use: No Preferred Language: Wolof 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: Effective Hand Etcher Required: No Beliefs That Will Affect Care: Spiritual marital status: Current Living Situation: Spouse Feels Safe at Home: Yes Assistive Devices: CPAP Review of Systems Review of Systems: As per HPI, all other systems reviewed and negative Physical Exam Physical Exam: GENERAL: Comfortable, pleasant, obese, no respiratory distress SKIN: Pallor, warm HEENT: Pale palpebral conjunctivae, no ptosis, moist buccal mucosa NECK : Supple, short neck, no tenderness CHEST : Decreased breath sounds, no tenderness HEART : Irregular, systolic murmur ABDOMEN: Some distention, nontender EXTREMITIES : Minimal LE swelling, no LE tenderness, no other conspicuous deformities noted NEUROLOGIC : Coherent, no facial asymmetry, slightly hard of hearing, no other gross focality Results & Data Results & Data Vital Signs (Past 12 Hours) Vital Signs Temp Pulse Pulse Resp BP BP Pulse Ox 11/06/22 05:48 64 16 173/80 H 97 11/06/22 04:59 57 L 16 184/65 H 97 11/06/22 03:50 77 16 205/81 H 97 11/06/22 03:50 84 11/06/22 03:40 36.4 C L 78 16 197/73 H 94 O2 Del Method 11/06/22 05:48 Room Air 11/06/22 04:59 Room Air 11/06/22 03:50 Room Air 11/06/22 03:50 11/06/22 03:40 Room Air Laboratory Results Laboratory Results WBC 6.68 K/ul (4.8-10.8) 11/06/22 03:50 RBC 4.11 M/uL (4.70-6.10) L 11/06/22 03:50 Hgb 12.2 g/dl (14.0-18.0) L 11/06/22 03:50 Hct 37.7 % (42.0-52.0) L 11/06/22 03:50 MCV 91.7 fL (80.0-100.0) 11/06/22 03:50 MCH 29.7 pg (25.0-34.0) 11/06/22 03:50 MCHC 32.4 g/dL (32.0-36.0) 11/06/22 03:50 RDW Std Deviation 50.1 fL (36.4-46.3) H 11/06/22 03:50 RDW Coeff of Efe 15.1 % (11.5-14.5) H 11/06/22 03:50 Plt Count 96 K/uL (130-400) L 11/06/22 03:50 MPV 10.1 fL (9.4-12.4) 11/06/22 03:50 Immature Gran % (Auto) 0.4 % 11/06/22 03:50 Neut % (Auto) 58.7 % 11/06/22 03:50 Lymph % (Auto) 26.6 % 11/06/22 03:50 [place] % (Auto) 9.3 % 11/06/22 03:50 Eos % (Auto) 4.6 % 11/06/22 03:50 Baso % (Auto) 0.4 % 11/06/22 03:50 Neut # (Auto) 3.91 K/uL (1.40-6.50) 11/06/22 03:50 Lymph # (Auto) 1.78 K/uL (1.2-3.4) 11/06/22 03:50 [place] # (Auto) 0.62 K/uL (0.11-0.59) H 11/06/22 03:50 Eos # (Auto) 0.31 K/uL (0-0.50) 11/06/22 03:50 Baso # (Auto) 0.03 K/uL (0-0.2) 11/06/22 03:50 Immature Gran # (Auto) 0.03 K/uL (0.01-0.20) 11/06/22 03:50 APTT 28.0 Seconds (21.0-31.0) 11/06/22 03:50 PTT Ratio 1.0 11/06/22 03:50 Sodium 137 mmol/L (136-145) 11/06/22 03:50 Potassium 4.2 mmol/L (3.5-5.1) 11/06/22 03:50 Chloride 104 mmol/L (98-107) 11/06/22 03:50 Carbon Dioxide 27 mmol/L (21-32) 11/06/22 03:50 Anion Gap 6 (3-11) 11/06/22 03:50 BUN 41 mg/dl (6-23) H 11/06/22 03:50 Creatinine 1.61 mg/dl (0.6-1.4) H 11/06/22 03:50 Est Cr Clr Drug Dosing 41.9 ml/min 11/06/22 03:50 Est GFR ( Amer) 44.8 ml/min 11/06/22 03:50 Est GFR (Non-Af Amer) 38.7 ml/min 11/06/22 03:50 BUN/Creatinine Ratio 25.5 (10-20) H 11/06/22 03:50 Glucose 129 mg/dl (70-99(Fasting)) H 11/06/22 03:50 Calcium 9.1 mg/dl (8.6-10.3) 11/06/22 03:50 Magnesium 1.5 mg/dl (1.7-2.4) L 11/06/22 03:50 Total Bilirubin 1.0 mg/dl (0.2-1.0) 11/06/22 03:50 AST 29 U/L (13-39) 11/06/22 03:50 ALT 21 U/L (7-52) 11/06/22 03:50 Alkaline Phosphatase 195 U/L (34-104) H 11/06/22 03:50 Troponin I High Sens 24.1 pg/ml (0-20) H 11/06/22 03:50 B-Natriuretic Peptide 395 pg/ml (0-100) H 11/06/22 03:50 Total Protein 7.5 gm/dl (6.0-8.3) 11/06/22 03:50 Albumin 3.8 gm/dl (3.4-5.0) 11/06/22 03:50 Globulin 3.7 gm/dl (2.5-4.0) 11/06/22 03:50 Albumin/Globulin Ratio 1.0 (0.9-2) 11/06/22 03:50 Adenovirus (PCR) Not Detected (NotDetected) 11/06/22 05:00 B. pertussis DNA (PCR) Not Detected (NotDetected) 11/06/22 05:00 B.parapertussis DNA PCR Not Detected (NotDetected) 11/06/22 05:00 C. pneumoniae DNA (PCR) Not Detected (NotDetected) 11/06/22 05:00 Coronavirus OC43 (PCR) Not Detected (NotDetected) 11/06/22 05:00 Coronavirus HKU1 (PCR) Not Detected (NotDetected) 11/06/22 05:00 Coronavirus 229E (PCR) Not Detected (NotDetected) 11/06/22 05:00 SARS-CoV-2 (PCR) Not Detected (NotDetected) 11/06/22 05:00 Coronavirus NL63 (PCR) Not Detected (NotDetected) 11/06/22 05:00 Human Metapneumovir PCR Not Detected (NotDetected) 11/06/22 05:00 Influenza Type A (PCR) Not Detected (NotDetected) 11/06/22 05:00 Influenza Type B (PCR) Not Detected (NotDetected) 11/06/22 05:00 M. pneumoniae (PCR) Not Detected (NotDetected) 11/06/22 05:00 Parainfluenza 1 (PCR) Not Detected (NotDetected) 11/06/22 05:00 Parainfluenza 2 (PCR) Not Detected (NotDetected) 11/06/22 05:00 Parainfluenza 3 (PCR) Not Detected (NotDetected) 11/06/22 05:00 Parainfluenza 4 (PCR) Not Detected (NotDetected) 11/06/22 05:00 RSV (PCR) Not Detected (NotDetected) 11/06/22 05:00 Entero/Rhino (PCR) Not Detected (NotDetected) 11/06/22 05:00 Diagnostic Findings Chest x-ray as per my interpretation: Cardiomegaly, congestion, right pleural effusion EKG as per my interpretation : Rate 75, A-fib, normal axis, no ischemia
[2022-11-06] MEDS ORDERED: ACETAMINOPHEN 325 MG TAB PO PRN (06:56)
[2022-11-06] MEDS ORDERED: traMADol HCL 50 MG TABLET PO PRN (06:56)
[2022-11-06] MEDS ORDERED: PROMETHAZINE HCL 12.5 MG in SODIUM CHLORIDE 0.9% 50 ML IV PRN (06:56)
[2022-11-06] MEDS ORDERED: carvediloL 3.125 MG TAB PO SCH (07:00)
[2022-11-06] MEDS ORDERED: Heparin IV Adult Wt-Based Low-Dose *NO* Bolus Protocol IV STA (07:03)
[2022-11-06] MEDS ORDERED: HEPARIN SODIUM/DEXTROSE 25,000 UNITS/500 ML BAG IV SCH (07:15)
[2022-11-06 07:27] LABS: T4 Free Thyroxine 0.89 ng/dl (0.61-1.60)
[2022-11-06] MEDS ORDERED: ALBUT/IPRATROP 3MG/0.5MG NEB 3 ML VIAL NEB STA (07:44)
--- NOTE | 2022-11-06 08:00 | XRay Report ---
XR chest 1V portable CLINICAL HISTORY: Dyspnea. COMPARISON STUDY: Chest radiograph May 26, 2022. FINDINGS: Low lung volumes are again noted. There are median sternotomy wires. Cardiomegaly is unchan ged. There is pulmonary vascular congestion. Suspected small right pleural effusion is noted. There i s no pneumothorax. Right basilar opacity is noted. There is also minimal left basilar opacity. IMPRESSION: 1. Cardiomegaly with pulmonary vascular congestion. 2. Small right pleural effusion. Bibasilar opacities which likely reflect atelectasis although consol idation could appear similar. Radiographic follow-up is recommended. ACT 112: Negative or not required by law. Electronically signed by: Estuardo George M.D. 11/06/2022 7:58 AM
[2022-11-06] MEDS: HEPARIN SODIUM/DEXTROSE 25,000 UNITS/500 ML BAG IV SCH (08:33)
[2022-11-06] MEDS ORDERED: GLUCOSE 40% GEL 15 GM TUBE PO PRN (08:56)
[2022-11-06] MEDS ORDERED: GLUCOSE 10 TAB/TUBE PO PRN (08:56)
[2022-11-06] MEDS ORDERED: NITROGLYCERIN SL 0.4 MG/TAB TAB SL PRN (08:56)
[2022-11-06] MEDS ORDERED: DEXTROSE 50% 50 ML SYRINGE IV PRN (08:56)
[2022-11-06] MEDS ORDERED: GLUCAGON FOR INJ 1 MG VIAL SQ PRN (08:56)
[2022-11-06] MEDS ORDERED: CARBOHYDRATES FOR HYPOGLYCEMIA PO PRN (08:56)
[2022-11-06] MEDS: INSULIN ASPART PER UNIT CHARGE SC SCH ×4 (09:04→20:28)
[2022-11-06 09:36] LABS: Estimated Average Glucose 126 mg/dl
[2022-11-06] MEDS: allopurinoL 100 MG TAB PO SCH (09:41)
[2022-11-06] MEDS: ASPIRIN 81 MG ECTAB PO SCH (09:41)
[2022-11-06] MEDS: ATORVASTATIN 40 MG TAB PO SCH (09:41)
[2022-11-06] MEDS: FOLIC ACID 400 MCG TAB PO SCH (09:41)
[2022-11-06] MEDS: CYANOCOBALAMIN (B-12) 500 MCG TABLET PO SCH (09:41)
[2022-11-06] MEDS: THIAMINE HCL 100 MG TAB PO SCH (09:42)
--- NOTE | 2022-11-06 10:56 | Electrocardiogram Report ---
Test Reason : Blood Pressure : / mmHG Vent. Rate : 073 BPM Atrial Rate : 000 BPM P-R Int : 000 ms QRS Dur : 088 ms QT Int : 430 ms P-R-T Axes : 000 034 043 degrees QTc Int : 473 ms Atrial fibrillation Cannot rule out Anterior infarct , age undetermined Abnormal ECG When compared with ECG of 28-MAY-2022 05:47, Atrial fibrillation has replaced Sinus rhythm Confirmed by Xavier Montiel ([id number]) on 11/06/2022 10:56:40 AM Referred By: REFERRED SELF Confirmed By:Xavier Montiel
--- NOTE | 2022-11-06 14:21 | Cardiology Consultation ---
Date of Consultation November 06, 2022 Assessment & Plan (1) Acute on chronic heart failure with preserved ejection fraction (HFpEF): - Patient previously admitted with heart failure decompensation May, -Patient has been seen in follow-up with the comprehensive valve clinic in July,, and ongoing medication therapy, follow-up in 6 months recommended at that time. -Although his blood pressure was elevated on arrival, his symptoms certainly sound consistent with volume overload and have since improved. -We will hold off on additional dose of furosemide until after his kidney function panel results are available for tomorrow. (2) Prosthetic aortic valve stenosis: - As noted. This is his second hospitalization for congestive heart failure decompensation. Outpatient follow-up with valve clinic recommended which is tentatively scheduled in February. We will see if we can facilitate a sooner appointment. (3) Atrial fibrillation: - Patient with history of bradycardia. Atenolol discontinued in May, due to relative bradycardia. Follow-up monitoring analyst May, revealed predominant rhythm sinus rhythm at 66 bpm with first-degree AV block as well as episodes of acute block block and junctional rhythm. Presenting rhythm today is atrial fibrillation with controlled to relatively slow ventricular response. -No need for AV juan blockers -Patient's [id number] score = at leas 5 for age > 75 (2 points), hypertension, vascular disease in the form of coronary heart disease, and diabetes. At present he is on unfractionated heparin. His hospitalization develops will consider anticoagulant of choice. Options include Eliquis 2.5 mg twice daily given his age and renal function, or perhaps warfarin if Eliquis is not affordable -Given his baseline bradycardia, he is likely at increased risk for requiring permanent pacemaker after valve in valve TAVR (4) Stage 3b chronic kidney disease (CKD): - Most recent outpatient chemistry panel 10/17/2022 included creatinine of 1.7, EGFR of 39 mL/min/m -Presenting creatinine today 1.6, EGFR 38 mL/min/m -Patient had CONCEPCION at the time of his hospital stay in May, with creatinine that peaked at 3.11 at that time. -We will diurese cautiously. Plan I spent a total of 65 minutes on the date of service in preparation, delivery, and documentation of the care provided to this patient, excluding any time spent in the performance of separately billed services. History of Present Illness Attending Physician: Manjit Gonzalez MD History of Present Illness Mr Davidson is an 82-year-old male seen in cardiology consultation per the request of Dr. Lazo for the evaluation of shortness of breath. The patient was seen and examined by the undersigned in the emergency department room A9B. At the time my evaluation he was comfortable. He states that for the 2 days leading up to his hospital presentation this morning at just after 3 AM he has noted progressive shortness of breath culminating in inability to lie flat due to shortness of breath. He does note that his blood pressure has been elevated at a recent nephrology visit. He had watched it for a few days and went back for second visit at which time it was improved. He notes no changes otherwise with his medications or dietary habits. He received a dose of IV hydralazine 5 mg at 501 this morning, followed by a dose of furosemide 40 mg at 8:01 am. Past Medical and Surgical History: 1. Aortic valve disease, severe calcific aortic valve stenosis status post May 2014 aortic valve replacement with a [address] [employer] Trifecta bioprosthesis. 2. Cardiac catheterization 03/14/2014 without obstructive disease on coronary angiography. 3. Obstructive sleep apnea on CPAP supplementation. 4. Type II diabetes mellitus 5. Hypertension. 6. Hyperlipidemia. 7. Stage IIIb chronic renal insufficiency. 8. Recurrent right pneumothorax, spontaneous 9. 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 Gout 11. Diverticulosis 12. Vitamin D deficiency 13. Bilateral quad rupture and repair x 2. 14. Left incisional hernia repair. AVR. 15. Status post laser vaporization of the prostate in 05/2007. Family History: Father at 61 with emphysema. Mother lived to . Social History: Nonsmoker. Alcohol: Rare. No illegal drugs. 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 Allergies Allergy/AdvReac Type Severity Reaction Status Date / Time felodipine Allergy Intermediate HIVES Verified 11/06/22 07:56 Home Medications Medication Instructions Recorded Confirmed Type aspirin 81 mg tablet,delayed 81 mg PO DAILY 05/19/19 11/06/22 History release (Adult Low Dose Aspirin) allopurinol 100 mg tablet 100 mg PO DAILY 02/24/20 11/06/22 History atorvastatin 40 mg tablet 40 mg PO DAILY 02/24/20 11/06/22 History cholecalciferol (vitamin D3) 25 25 mcg PO DAILY 03/21/20 11/06/22 History mcg (1,000 unit) capsule (Vitamin D3) cyanocobalamin (vitamin B-12) 500 500 mcg PO DAILY 03/21/20 11/06/22 History mcg tablet thiamine HCl (vitamin B1) 100 mg 100 mg PO DAILY 03/21/20 11/06/22 History tablet acetaminophen 325 mg capsule 325 mg PO QID PRN Pain 05/26/22 11/06/22 History folic acid 0.8 mg capsule 0.8 mg PO DAILY 05/26/22 11/06/22 History furosemide 20 mg tablet 20 mg PO DAILY 05/26/22 11/06/22 History varicella-zoster glycoE [id number] 0.5 ml IM [id number] 05/26/22 11/06/22 History adj(PF) 50 mcg/0.5 mL IM susp, kit (Shingrix (PF)) metoprolol succinate 25 mg 12.5 mg PO DAILY 11/06/22 11/06/22 History tablet,extended release 24 hr Patient History Medical History Chronic deep vein thrombosis (DVT) CKD (chronic kidney disease) stage 3, GFR 30-59 ml/min Diabetes HLD (hyperlipidemia) Hypoxemia SANDI on CPAP Psoriasis Recurrent spontaneous pneumothorax Sleep apnea with use of continuous positive airway pressure (CPAP) Steatohepatitis, non-alcoholic Vitamin D deficiency Surgical History History of aortic valve replacement History of colonoscopy History of hernia repair Rupture quadriceps tendon Family History Brother Heart disease CABG 2014 Father , 61 COPD (chronic obstructive pulmonary disease) Social History Smoking Status: Never smoker Hx Alcohol Use: Yes Alcohol type: beer and wine Hx Substance Use: No Preferred Language: Upper Sorbian 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: Effective Marketing Secretary Required: No Beliefs That Will Affect Care: Spiritual marital status: Current Living Situation: Spouse Feels Safe at Home: Yes Assistive Devices: CPAP Review of Systems Review of Systems: All systems reviewed & are unremarkable except as noted in HPI & below Physical Exam Constitutional: WD/WN, vitals as above Respiratory: normal respiratory effort, lungs clear to auscultation Cardiovascular: Rate/Rhythm: + irregularly irregular Heart Sounds: + murmur (1/6 systolic murmur) Extremities: + edema (Trace edema at the sock lines) Gastrointestinal (Abdomen): normal bowel sounds, soft, nontender, no hepatosplenomegaly Neurologic: PERRL, EOMI, accommodation nl, no face palsy, no dysarthria Results & Data Laboratory Results Cardiac Enzymes 11/06/22 11/06/22 Range/Units 03:50 03:50 AST 29 (13-39) U/L Troponin I High Sens 24.1 H (0-20) pg/ml B-Natriuretic Peptide 395 H (0-100) pg/ml Coagulation 11/06/22 11/06/22 Range/Units 03:50 03:50 APTT 28.0 (21.0-31.0) Seconds B-Natriuretic Peptide 395 H (0-100) pg/ml CBC 11/06/22 Range/Units 03:50 WBC 6.68 (4.8-10.8) K/ul RBC 4.11 L (4.70-6.10) M/uL Hgb 12.2 L (14.0-18.0) g/dl Hct 37.7 L (42.0-52.0) % Plt Count 96 L (130-400) K/uL Neut # (Auto) 3.91 (1.40-6.50) K/uL Lymph # (Auto) 1.78 (1.2-3.4) K/uL [place] # (Auto) 0.62 H (0.11-0.59) K/uL Eos # (Auto) 0.31 (0-0.50) K/uL Baso # (Auto) 0.03 (0-0.2) K/uL Comprehensive Metabolic Panel 11/06/22 Range/Units 03:50 Sodium 137 (136-145) mmol/L Potassium 4.2 (3.5-5.1) mmol/L Chloride 104 (98-107) mmol/L Carbon Dioxide 27 (21-32) mmol/L BUN 41 H (6-23) mg/dl Creatinine 1.61 H (0.6-1.4) mg/dl Glucose 129 H (70-99(Fasting)) mg/dl Calcium 9.1 (8.6-10.3) mg/dl AST 29 (13-39) U/L ALT 21 (7-52) U/L Alkaline Phosphatase 195 H (34-104) U/L Total Protein 7.5 (6.0-8.3) gm/dl Albumin 3.8 (3.4-5.0) gm/dl Diagnostic Findings Chest x-ray performed this morning 11/06/2022, radiology report reviewed, image reviewed independently: Enlargement of cardiac silhouette, pulmonary vascular congestion, small right pleural effusion or atelectasis Summary of outpatient transthoracic echocardiogram performed 06/10/2022: The LV wall thickness is moderately increased (concentric). The left ventricular wall motion is normal. The left atrium is severely enlarged (>48 ml/m^2,). There is an aortic valve bioprosthetic present. There is severe aortic valve prosthesis stenosis, Mild prosthetic aortic regurgitation is present. The images are insufficient to determine if this is perivalvular or intra valvular regurgitation. The peak velocity= 4 meters/second, mean gradient 39 millimeters Hg, calculated aortic valve orifice area= 0.9 centimeter squared. Mild mitral regurgitation is present. Compared to the report of the previous study dated 11/26/2021, there has been no significant interval change. EKG performed today 11/06/2022 and interpreted independently: Atrial fibrillation at 73 bpm, and age-indeterminate anterior infarct cannot be excluded. Compared to the previous tracing, atrial fibrillation has replaced bradycardia with long first-degree AV block
--- NOTE | 2022-11-06 15:44 | Hospitalist Progress Note ---
Date of Service November 06, 2022 Assessment & Plan (1) SOB (shortness of breath): Plan: Acute on chronic heart failure with preserved ejection fraction Bioprosthetic aortic valve stenosis --CXR:Cardiomegaly with pulmonary vascular congestion. Small right pleural effusion. Bibasilar opacities which likely reflect atelectasis although consolidation could appear similar. Radiographic follow-up is recommended. --ECHO pending Received IV Lasix Monitor volume status, electrolytes, renal function Monitor I's and O's, daily weight Appreciate cardiology input Additional diuretics based on renal function tomorrow Needs follow-up with valve clinic upon discharge Uncontrolled hypertension Continue Coreg Monitor BP Adjust meds as needed Recurrent A-fib H/O bradycardia Continue Coreg On IV heparin for anticoagulation Appreciate cardiology input Hyperlipidemia on statin DM II HbA1c 6.0 Diet-controlled Continue insulin while hospitalized Monitor BGs H/O NAFLD cirrhosis SANDI on CPAP Monitor volume status Continue CPAP at bedtime CKD III Cr at baseline Monitor renal function Avoid nephrotoxic agents as able Chronic anemia 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 Hb at baseline Monitor CBC Hypomagnesemia Replete electrolytes as needed DVT Px: IV heparin Code Status Full code Admission and Anticipated Discharge Date Admission Date: November 06, 2022 Subjective Patient is seen and examined at bedside States having dry cough Also reports leg edema Less dyspnea today when compared yesterday Denies any chest pain, dizziness, nausea, abdominal pain Discussed with cardiology today. No other complaints Review of Systems Review of Systems: All systems reviewed & are unremarkable except as noted in Subjective Physical Exam Physical Exam: Physical Exam: Vitals signs as noted above General Appearance:Moderately built and nourished, no apparent distress Head: normocephalic, Atraumatic Eyes: normal inspection, EOMI Neck: supple, Trachea midline Respiratory/Chest: Normal breath sounds, basal rales, No accessory muscle use Cardiovascular: Irregularly irregular, +murmur Abdomen/GI:Soft, Non tender, Protuberant, Bowel sounds present Extremities/Musculoskeletal:normal inspection, 2+ edema Neurologic/Psych:AAOX3, grossly no focal neurological deficits Skin: normal color, warm Results & Data Results & Data Vital Signs (Past 12 Hours) Vital Signs Pulse Pulse Resp BP BP Pulse Ox O2 Del Method 11/06/22 15:00 67 28 H 174/71 H 98 Room Air 11/06/22 14:00 66 22 169/56 H 98 Room Air 11/06/22 15:10 60 11/06/22 13:41 62 21 177/60 H 97 Room Air 11/06/22 12:00 53 L 25 H 186/61 H 98 Room Air 11/06/22 11:49 58 L 25 H 197/70 H 98 11/06/22 10:00 55 L 14 174/54 H 98 Room Air 11/06/22 09:00 11/06/22 08:39 66 20 184/88 H 98 Room Air 11/06/22 07:49 69 11/06/22 07:07 176/60 H 11/06/22 07:07 65 22 97 11/06/22 07:00 71 25 H 11/06/22 05:48 64 16 173/80 H 97 Room Air 11/06/22 04:59 57 L 16 184/65 H 97 Room Air 11/06/22 03:50 77 16 205/81 H 97 Room Air 11/06/22 03:50 84 O2 Del Method 11/06/22 15:00 11/06/22 14:00 11/06/22 15:10 11/06/22 13:41 11/06/22 12:00 11/06/22 11:49 11/06/22 10:00 11/06/22 09:00 Room Air 11/06/22 08:39 11/06/22 07:49 11/06/22 07:07 11/06/22 07:07 11/06/22 07:00 11/06/22 05:48 11/06/22 04:59 11/06/22 03:50 11/06/22 03:50 Laboratory Results Short CBC 11/06/22 Range/Units 03:50 WBC 6.68 (4.8-10.8) K/ul Hgb 12.2 L (14.0-18.0) g/dl Hct 37.7 L (42.0-52.0) % Plt Count 96 L (130-400) K/uL BMP 11/06/22 03:50 Sodium 137 Potassium 4.2 Chloride 104 Carbon Dioxide 27 BUN 41 H Creatinine 1.61 H Glucose 129 H Calcium 9.1 Liver Function 11/06/22 Range/Units 03:50 Total Bilirubin 1.0 (0.2-1.0) mg/dl AST 29 (13-39) U/L ALT 21 (7-52) U/L Alkaline Phosphatase 195 H (34-104) U/L Albumin 3.8 (3.4-5.0) gm/dl
[2022-11-06 15:58] LABS: Partial Thromboplastin Ratio 1.3; Partial Thromboplastin Time 37.8 Seconds (21.0-31.0)
[2022-11-06] MEDS: carvediloL 3.125 MG TAB PO SCH (20:25)
[2022-11-06 23:51] LABS: Partial Thromboplastin Time 56.7 Seconds (21.0-31.0)
[2022-11-07] MEDS: HEPARIN SODIUM/DEXTROSE 25,000 UNITS/500 ML BAG IV SCH (06:38)
[2022-11-07 07:24] LABS: Basophils # (auto) 0.03 K/uL (0-0.2); Basophils % (auto) 0.6 %; Eosinophils # (auto) 0.24 K/uL (0-0.50); Eosinophils % (auto) 4.7 %; Hematocrit (blood only) 33.4 % (42.0-52.0); Hemoglobin 11.2 g/dl (14.0-18.0); Immature Granulocytes # (auto) 0.02 K/uL (0.01-0.20); Immature Granulocytes % (auto) 0.4 %; Lymphocytes # (auto) 1.23 K/uL (1.2-3.4); Lymphocytes % (auto) 24.2 %; Mean Corpuscular Hgb Conc 33.5 g/dL (32.0-36.0); Mean Corpuscular Volume 89.5 fL (80.0-100.0); Mean Platelet Volume 9.9 fL (9.4-12.4); Monocytes # (auto) 0.46 K/uL (0.11-0.59); Monocytes % (auto) 9.1 %; Platelet Count 66 K/uL (130-400); RDW Coefficient of Variation 15.2 % (11.5-14.5); RDW Standard Deviation 49.8 fL (36.4-46.3); Red Blood Count 3.73 M/uL (4.70-6.10); White Blood Count 5.08 K/ul (4.8-10.8)
[2022-11-07 07:37] LABS: BUN Creatinine Ratio 25.9 (10-20); Calcium 8.7 mg/dl (8.6-10.3); Creatinine Clr Calc Pharmacy 46.6 ml/min; Est GFR (African American) 51.8 ml/min; Est GFR (Non-African American) 44.7 ml/min; Magnesium 1.7 mg/dl (1.7-2.4); Potassium 4.1 mmol/L (3.5-5.1)
[2022-11-07] MEDS: INSULIN ASPART PER UNIT CHARGE SC SCH ×4 (07:52→20:31)
[2022-11-07] MEDS: ATORVASTATIN 40 MG TAB PO SCH (07:59)
[2022-11-07] MEDS: ASPIRIN 81 MG ECTAB PO SCH (07:59)
[2022-11-07] MEDS: carvediloL 3.125 MG TAB PO SCH ×2 (07:59→16:45)
[2022-11-07] MEDS: CYANOCOBALAMIN (B-12) 500 MCG TABLET PO SCH (08:00)
[2022-11-07] MEDS: allopurinoL 100 MG TAB PO SCH (08:00)
[2022-11-07] MEDS: FOLIC ACID 400 MCG TAB PO SCH (08:00)
[2022-11-07] MEDS: THIAMINE HCL 100 MG TAB PO SCH (08:00)
[2022-11-07 08:01] LABS: Partial Thromboplastin Ratio 2.6
[2022-11-07 08:03] LABS: Partial Thromboplastin Time 73.2 Seconds (21.0-31.0)
[2022-11-07] MEDS ORDERED: FUROSEMIDE 40 MG/4 ML VIAL IV ONE (10:08)
--- NOTE | 2022-11-07 15:20 | Cardiology Progress Note ---
Date of Service November 07, 2022 Assessment & Plan (1) Acute on chronic heart failure with preserved ejection fraction (HFpEF): Plan: - Patient previously admitted with heart failure decompensation May, -Although his blood pressure was elevated on arrival, his symptoms certainly sound consistent with volume overload and have since improved. -Renal function stable. Continue furosemide , 40 mg IV daily. (2) Prosthetic aortic valve stenosis: Plan: - This is his second hospitalization for congestive heart failure decompensation. -Recent echocardiogram studies 05/27/2022 ([facility]), 06/10/2022 ([facility]), and 11/06/22 ([facility]) all suggestive of preserved ejection fraction, severe prosthetic stenosis. -Outpatient follow-up in the valve clinic is tentatively scheduled for 02/25/2023,will request for this to be moved up. (3) Atrial fibrillation: Plan: - Patient with history of bradycardia. Atenolol discontinued in May, due to relative bradycardia then transitioned to metoprolol succinate 12.5 mg daily. Follow-up lunchroom monitor May, revealed predominant rhythm sinus rhythm at 66 bpm with first-degree AV block as well as episodes of acute block block and junctional rhythm. Presenting rhythm today is atrial fibrillation with controlled to relatively slow ventricular response. -Patient transitioned to carvedilol 3.125 mg twice daily on admission given findings of hypertension and he is tolerating this well thus far. -Patient's [id number] score = at leas 5 for age > 75 (2 points), hypertension, vascular disease in the form of coronary heart disease, and diabetes. -Transition from heparin to Eliquis 2.5 mg twice daily today. We will need to assess the affordability of this prior to discharge (4) Stage 3b chronic kidney disease (CKD): Plan: - Most recent outpatient chemistry panel 10/17/2022 included creatinine of 1.7, EGFR of 39 mL/min/m -Patient had CONCEPCION at the time of his hospital stay in May, with creatinine that peaked at 3.11 at that time. -Creatinine improved status post diuretic therapy as hospital stay from 1.61 on 11/06-1.43 on 11/07/2022 -We will diurese cautiously and monitor kidney function electrolytes (5) HTN (hypertension): Plan: - BP remains above goal despite having transition to carvedilol and administering IV furosemide. Need to be cautious not to decrease his blood pressure too much due to his underlying aortic stenosis. -His renal function is such that he is felt to be a poor candidate for the addition of an SHANNAN inhibitor or ARB. Will cautiously start hydralazine 5 mg 3 times daily. I spent a total of 25 minutes on the date of service in preparation, delivery, and documentation of the care provided to this patient, excluding any time spent in the performance of separately billed services. Admission and Anticipated Discharge Date Admission Date: November 06, 2022 Subjective Patient seen in cardiology follow-up. He noted resting comfortably last night and was able to lie supine for the first time in days. Telemetry reveals ongoing rate controlled atrial fibrillation for the most part in the range of 6070 bpm. Physical Exam Constitutional: WD/WN, vitals as above Respiratory: normal respiratory effort, lungs clear to auscultation Cardiovascular: Rate/Rhythm: + irregularly irregular Heart Sounds: + murmur (1/6 systolic murmur) Extremities: + edema (Trace edema at the sock lines) Gastrointestinal (Abdomen): normal bowel sounds, soft, nontender, no hepatosplenomegaly Neurologic: PERRL, EOMI, accommodation nl, no face palsy, no dysarthria Results & Data Vital Signs (Past 12 Hours) Vital Signs Temp Pulse Pulse Resp BP Pulse Ox O2 Del Method 11/07/22 12:26 36.6 C 54 L 18 162/83 H 96 Room Air 11/07/22 08:40 72 11/07/22 08:40 Room Air, CPAP 11/07/22 08:14 36.4 C L 75 19 179/85 H 97 Room Air 11/07/22 03:13 36.5 C 71 18 155/67 H 98 CPAP Laboratory Results Coagulation 11/06/22 11/06/22 11/07/22 Range/Units 14:33 22:16 07:00 APTT 37.8 H 56.7 H* 73.2 H* (21.0-31.0) Seconds CBC 11/07/22 Range/Units 07:00 WBC 5.08 (4.8-10.8) K/ul RBC 3.73 L (4.70-6.10) M/uL Hgb 11.2 L (14.0-18.0) g/dl Hct 33.4 L (42.0-52.0) % Plt Count 66 L (130-400) K/uL Neut # (Auto) 3.10 (1.40-6.50) K/uL Lymph # (Auto) 1.23 (1.2-3.4) K/uL [place] # (Auto) 0.46 (0.11-0.59) K/uL Eos # (Auto) 0.24 (0-0.50) K/uL Baso # (Auto) 0.03 (0-0.2) K/uL Comprehensive Metabolic Panel 11/07/22 Range/Units 07:00 Sodium 138 (136-145) mmol/L Potassium 4.1 (3.5-5.1) mmol/L Chloride 103 (98-107) mmol/L Carbon Dioxide 29 (21-32) mmol/L BUN 37 H (6-23) mg/dl Creatinine 1.43 H (0.6-1.4) mg/dl Glucose 118 H (70-99(Fasting)) mg/dl Calcium 8.7 (8.6-10.3) mg/dl Intake and Output 11/07/22 11/07/22 11/07/22 06:59 14:59 22:59 Intake Total 955.334 / 1310.334 32.267 / 32.267 Balance 955.334 / 335.334 32.267 / 32.267 Intake: IV 315.334 / 670.334 32.267 / 32.267 Heparin Sodium/Dextrose 25,000 315.334 / 470.334 32.267 / 32.267 units In 500 ml @ 1,100 UNITS/ HR 22 mls/hr IV .[id number] [facility] Rx #:[id number] Oral 640 / 640 Other: Weight 97.8 kg Weight Measurement Method Built in [facility]
[2022-11-07 16:09] LABS: Partial Thromboplastin Time 57.6 Seconds (21.0-31.0)
--- NOTE | 2022-11-07 19:53 | Hospitalist Progress Note ---
Date of Service November 07, 2022 Assessment & Plan (1) SOB (shortness of breath): Plan: Acute on chronic heart failure with preserved ejection fraction Bioprosthetic aortic valve stenosis --CXR:Cardiomegaly with pulmonary vascular congestion. Small right pleural effusion. Bibasilar opacities which likely reflect atelectasis although consolidation could appear similar. Radiographic follow-up is recommended. --ECHO: Severe concentric LVH, left ventricle wall motion normal. EF 60 to 65%. Bioprosthetic aortic valve. Mild to moderate aortic regurgitation. Borderline severe prosthetic aortic valve stenosis. Peak aortic valve velocity 3.7 m/s. Mean gradient 28 mmHg, BR=021. Severe mitral annular calcification. Moderate focal calcification of the mitral valve leaflets. Mild tricuspid regurgitation. Severe pulmonary hypertension is present. --Monitor volume status, electrolytes, renal function Monitor I's and O's, daily weight Appreciate cardiology input Additional diuretics based on renal function tomorrow Needs follow-up with valve clinic upon discharge Continue IV Lasix 40 mg daily Uncontrolled hypertension Continue Coreg Monitor BP Added hydralazine Recurrent A-fib H/O bradycardia Continue Coreg On IV heparin for anticoagulation>> transition to Eliquis Appreciate cardiology input Hyperlipidemia on statin DM II HbA1c 6.0 Diet-controlled Continue insulin while hospitalized Monitor BGs H/O NAFLD cirrhosis SANDI on CPAP Monitor volume status Continue CPAP at bedtime CKD III Cr at baseline Monitor renal function Avoid nephrotoxic agents as able Chronic anemia 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 Hb at baseline Monitor CBC Hypomagnesemia Replete electrolytes as needed DVT Px: Eliquis Code Status Full code Admission and Anticipated Discharge Date Admission Date: November 06, 2022 Subjective Patient is seen and examined at bedside States feeling much better today Dyspnea much improved No new complaints Denies any chest pain, dizziness, nausea, abdominal pain Review of Systems Review of Systems: All systems reviewed & are unremarkable except as noted in Subjective Physical Exam Physical Exam: Physical Exam: Vitals signs as noted above General Appearance:Moderately built and nourished, no apparent distress Head: normocephalic, Atraumatic Eyes: normal inspection, EOMI Neck: supple, Trachea midline Respiratory/Chest: Normal breath sounds, basal rales, No accessory muscle use Cardiovascular: Irregularly irregular, +murmur Abdomen/GI:Soft, Non tender, Protuberant, Bowel sounds present Extremities/Musculoskeletal:normal inspection, 2+ edema Neurologic/Psych:AAOX3, grossly no focal neurological deficits Skin: normal color, warm Results & Data Results & Data Vital Signs (Past 12 Hours) Vital Signs Temp Pulse Pulse Resp BP BP Pulse Ox 11/07/22 19:22 36.9 C 57 L 18 143/74 H 98 11/07/22 15:00 48 L 11/07/22 16:45 63 11/07/22 16:32 37.0 C 58 L 18 164/77 H 98 11/07/22 12:26 36.6 C 54 L 18 162/83 H 96 11/07/22 08:40 72 11/07/22 08:40 11/07/22 08:14 36.4 C L 75 19 179/85 H 97 O2 Del Method 11/07/22 19:22 Room Air 11/07/22 15:00 11/07/22 16:45 11/07/22 16:32 Room Air 11/07/22 12:26 Room Air 11/07/22 08:40 11/07/22 08:40 Room Air, CPAP 11/07/22 08:14 Room Air Laboratory Results Short CBC 11/07/22 Range/Units 07:00 WBC 5.08 (4.8-10.8) K/ul Hgb 11.2 L (14.0-18.0) g/dl Hct 33.4 L (42.0-52.0) % Plt Count 66 L (130-400) K/uL BMP 11/07/22 07:00 Sodium 138 Potassium 4.1 Chloride 103 Carbon Dioxide 29 BUN 37 H Creatinine 1.43 H Glucose 118 H Calcium 8.7
[2022-11-07] MEDS: APIXABAN 2.5 MG TAB PO SCH (20:40)
[2022-11-07] MEDS: hydrALAZINE 10 MG TAB PO SCH (20:40)
[2022-11-08] MEDS: HEPARIN SODIUM/DEXTROSE 25,000 UNITS/500 ML BAG IV SCH (00:52)
--- NOTE | 2022-11-08 06:15 | Emergency Department Note ---
Impression & Plan Acute dyspnea, Elevated troponin, H/O CHF ED Provider Note CHIEF COMPLAINT: SOB HISTORY OF PRESENT ILLNESS: This 82-year-old male patient with past medical history of atrial fibrillation, chronic kidney disease, congestive heart failure, dyslipidemia, hypertension, prosthetic aortic valve stenosis, DVT, spontaneous pneumothorax, CVA and diabetes presents to the emergency department with complaints of worsening shortness of breath. Patient complains of worsening shortness of breath over the last several days. He does not have any chest pain. He has not had a fever or significant cough. He admits that his blood pressure has been running high over the last several days. REVIEW OF SYSTEMS: A review of systems was performed with positives and pertinent negatives listed in the history of present illness. 10 systems were reviewed and are otherwise negative. ALLERGIES: see below MEDICATIONS: see below PMH: see below SOCIAL HISTORY: see below DDx: Reactive airway disease, pneumonia, pneumothorax, COPD, CHF, infections, cardiac ischemia, pulmonary embolism, musculoskeletal, gastrointestinal, as well as other pathologies. PHYSICAL EXAM: Vital signs reviewed. Noted to be hypertensive. General: Well-appearing 82 yo male, in no significant distress. HEENT: No scleral icterus, PERRLA, neck supple. Atraumatic. Cardiovascular: Regular rate and rhythm, systolic ejection murmur Pulmonary: Crackles to the bases on auscultation bilaterally, normal work of breathing. Abdomen: Soft, nontender, nondistended, positive bowel sounds. Musculoskeletal: Atraumatic, no peripheral edema. Neurologic: Patient awake alert and oriented x 3, speech is clear Skin: Warm, dry, no rash EMERGENCY DEPARTMENT COURSE/MDM: This patient was evaluated and appeared to be in no significant distress. External medical records were reviewed. Patient was oxygenating on room air without difficulty at rest. Chest x-ray was performed and reveals pulmonary vascular congestion. EKG is a rate controlled atrial fibrillation. Patient was medicated with 5 mg of IV hydralazine. He does have an extensive past medical history including congestive heart failure. Laboratory work reveals a high-sensitivity troponin of 24. Patient's BNP is within normal limits. Case was discussed with the hospitalist service to evaluate the patient for admission and further management. Patient was made aware of the plan and agreed. MONITORING: An order for cardiac monitoring was placed and the patient is noted to be in an atrial fibrillation at 77 beats per minute. RADIOLOGY: CXR to my interpretation reveals cardiomegaly with pulmonary vascular congestion, no focal lung consolidation. Otherwise defer to radiology. EKG: To my interpretation reveals atrial fibrillation at 73 bpm. Likely prev ious anterior infarct. Normal ST segments. QTc is 473. When compared to May 28, 2022, atrial fib has replaced a sinus rhythm. DISPOSITION: Admission Past Med/Surg History Medical History Chronic deep vein thrombosis (DVT) CKD (chronic kidney disease) stage 3, GFR 30-59 ml/min Diabetes HLD (hyperlipidemia) Hypoxemia SANDI on CPAP Psoriasis Recurrent spontaneous pneumothorax Sleep apnea with use of continuous positive airway pressure (CPAP) Steatohepatitis, non-alcoholic Vitamin D deficiency Surgical History History of aortic valve replacement History of colonoscopy History of hernia repair Rupture quadriceps tendon Family History Brother Heart disease CABG 2014 Father , 61 COPD (chronic obstructive pulmonary disease) Social History Smoking Status: Never smoker Hx Alcohol Use: Yes Alcohol type: beer and wine Hx Substance Use: No Preferred Language: Indonesian 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: Effective 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 marital status: Current Living Situation: Spouse Other Information That Helps Us Care for You: No Feels Safe at Home: Yes Safety Concerns: Feels Safe At This Time Assistive Devices: CPAP Allergies Allergies Allergy/AdvReac Type Severity Reaction Status Date / Time felodipine Allergy Intermediate HIVES Verified 11/06/22 07:56 Home Meds Home Medications Medication Instructions Recorded Confirmed aspirin 81 mg tablet,delayed 81 mg PO DAILY 05/19/19 11/06/22 release (Adult Low Dose Aspirin) allopurinol 100 mg tablet 100 mg PO DAILY 02/24/20 11/06/22 atorvastatin 40 mg tablet 40 mg PO DAILY 02/24/20 11/06/22 cholecalciferol (vitamin D3) 25 25 mcg PO DAILY 03/21/20 11/06/22 mcg (1,000 unit) capsule (Vitamin D3) cyanocobalamin (vitamin B-12) 500 500 mcg PO DAILY 03/21/20 11/06/22 mcg tablet thiamine HCl (vitamin B1) 100 mg 100 mg PO DAILY 03/21/20 11/06/22 tablet acetaminophen 325 mg capsule 325 mg PO QID PRN Pain 05/26/22 11/06/22 folic acid 0.8 mg capsule 0.8 mg PO DAILY 05/26/22 11/06/22 varicella-zoster glycoE [id number] 0.5 ml IM [id number] 05/26/22 11/06/22 adj(PF) 50 mcg/0.5 mL IM susp, kit (Shingrix (PF)) Previous Rx's Medication Instructions Recorded apixaban 2.5 mg tablet (Eliquis) 2.5 mg PO BID #60 tabs 11/09/22 carvedilol 3.125 mg tablet 3.125 mg PO BIDM #60 tabs 11/09/22 furosemide 40 mg tablet 40 mg PO QAM #30 tabs 11/09/22 hydralazine 10 mg tablet 10 mg PO BID17 #60 tabs 11/09/22 Results & Data (ED) Home Medications Current Medication List: was personally reviewed by me Laboratory Data Attestation: I reviewed the patient's lab results. 11/07/22 07:00 11/07/22 07:00 Lab Results 11/06/22 11/06/22 11/06/22 Range/Units 03:50 03:50 03:50 WBC 6.68 (4.8-10.8) K/ul RBC 4.11 L (4.70-6.10) M/uL Hgb 12.2 L (14.0-18.0) g/dl Hct 37.7 L (42.0-52.0) % MCV 91.7 (80.0-100.0) fL MCH 29.7 (25.0-34.0) pg MCHC 32.4 (32.0-36.0) g/dL RDW Std Deviation 50.1 H (36.4-46.3) fL RDW Coeff of Efe 15.1 H (11.5-14.5) % Plt Count 96 L (130-400) K/uL MPV 10.1 (9.4-12.4) fL Immature Gran % (Auto) 0.4 % Neut % (Auto) 58.7 % Lymph % (Auto) 26.6 % [place] % (Auto) 9.3 % Eos % (Auto) 4.6 % Baso % (Auto) 0.4 % Neut # (Auto) 3.91 (1.40-6.50) K/uL Lymph # (Auto) 1.78 (1.2-3.4) K/uL [place] # (Auto) 0.62 H (0.11-0.59) K/uL Eos # (Auto) 0.31 (0-0.50) K/uL Baso # (Auto) 0.03 (0-0.2) K/uL Immature Gran # (Auto) 0.03 (0.01-0.20) K/uL APTT (21.0-31.0) Seconds PTT Ratio Sodium 137 (136-145) mmol/L Potassium 4.2 (3.5-5.1) mmol/L Chloride 104 (98-107) mmol/L Carbon Dioxide 27 (21-32) mmol/L Anion Gap 6 (3-11) BUN 41 H (6-23) mg/dl Creatinine 1.61 H (0.6-1.4) mg/dl Est Cr Clr Drug Dosing 41.9 ml/min Est GFR ( Amer) 44.8 ml/min Est GFR (Non-Af Amer) 38.7 ml/min BUN/Creatinine Ratio 25.5 H (10-20) Glucose 129 H (70-99(Fasting)) mg/dl Estimat Average Glucose mg/dl Hemoglobin A1c (4.5-5.6) % Calcium 9.1 (8.6-10.3) mg/dl Magnesium 1.5 L (1.7-2.4) mg/dl Total Bilirubin 1.0 (0.2-1.0) mg/dl AST 29 (13-39) U/L ALT 21 (7-52) U/L Alkaline Phosphatase 195 H (34-104) U/L Troponin I High Sens 24.1 H (0-20) pg/ml B-Natriuretic Peptide 395 H (0-100) pg/ml Total Protein 7.5 (6.0-8.3) gm/dl Albumin 3.8 (3.4-5.0) gm/dl Globulin 3.7 (2.5-4.0) gm/dl Albumin/Globulin Ratio 1.0 (0.9-2) TSH (0.300-4.500) uIu/ml Free T4 (0.61-1.60) ng/dl Adenovirus (PCR) (NotDetected) B. pertussis DNA (PCR) (NotDetected) B.parapertussis DNA PCR (NotDetected) C. pneumoniae DNA (PCR) (NotDetected) Coronavirus OC43 (PCR) (NotDetected) Coronavirus HKU1 (PCR) (NotDetected) Coronavirus 229E (PCR) (NotDetected) SARS-CoV-2 (PCR) (NotDetected) Coronavirus NL63 (PCR) (NotDetected) Human Metapneumovir PCR (NotDetected) Influenza Type A (PCR) (NotDetected) Influenza Type B (PCR) (NotDetected) M. pneumoniae (PCR) (NotDetected) Parainfluenza 1 (PCR) (NotDetected) Parainfluenza 2 (PCR) (NotDetected) Parainfluenza 3 (PCR) (NotDetected) Parainfluenza 4 (PCR) (NotDetected) RSV (PCR) (NotDetected) Entero/Rhino (PCR) (NotDetected) 11/06/22 11/06/22 11/06/22 Range/Units 03:50 03:50 03:50 WBC (4.8-10.8) K/ul RBC (4.70-6.10) M/uL Hgb (14.0-18.0) g/dl Hct (42.0-52.0) % MCV (80.0-100.0) fL MCH (25.0-34.0) pg MCHC (32.0-36.0) g/dL RDW Std Deviation (36.4-46.3) fL RDW Coeff of Efe (11.5-14.5) % Plt Count (130-400) K/uL MPV (9.4-12.4) fL Immature Gran % (Auto) % Neut % (Auto) % Lymph % (Auto) % [place] % (Auto) % Eos % (Auto) % Baso % (Auto) % Neut # (Auto) (1.40-6.50) K/uL Lymph # (Auto) (1.2-3.4) K/uL [place] # (Auto) (0.11-0.59) K/uL Eos # (Auto) (0-0.50) K/uL Baso # (Auto) (0-0.2) K/uL Immature Gran # (Auto) (0.01-0.20) K/uL APTT 28.0 (21.0-31.0) Seconds PTT Ratio 1.0 Sodium (136-145) mmol/L Potassium (3.5-5.1) mmol/L Chloride (98-107) mmol/L Carbon Dioxide (21-32) mmol/L Anion Gap (3-11) BUN (6-23) mg/dl Creatinine (0.6-1.4) mg/dl Est Cr Clr Drug Dosing ml/min Est GFR ( Amer) ml/min Est GFR (Non-Af Amer) ml/min BUN/Creatinine Ratio (10-20) Glucose (70-99(Fasting)) mg/dl Estimat Average Glucose 126 mg/dl Hemoglobin A1c 6.0 H (4.5-5.6) % Calcium (8.6-10.3) mg/dl Magnesium (1.7-2.4) mg/dl Total Bilirubin (0.2-1.0) mg/dl AST (13-39) U/L ALT (7-52) U/L Alkaline Phosphatase (34-104) U/L Troponin I High Sens (0-20) pg/ml B-Natriuretic Peptide (0-100) pg/ml Total Protein (6.0-8.3) gm/dl Albumin (3.4-5.0) gm/dl Globulin (2.5-4.0) gm/dl Albumin/Globulin Ratio (0.9-2) TSH 4.553 H (0.300-4.500) uIu/ml Free T4 0.89 (0.61-1.60) ng/dl Adenovirus (PCR) (NotDetected) B. pertussis DNA (PCR) (NotDetected) B.parapertussis DNA PCR (NotDetected) C. pneumoniae DNA (PCR) (NotDetected) Coronavirus OC43 (PCR) (NotDetected) Coronavirus HKU1 (PCR) (NotDetected) Coronavirus 229E (PCR) (NotDetected) SARS-CoV-2 (PCR) (NotDetected) Coronavirus NL63 (PCR) (NotDetected) Human Metapneumovir PCR (NotDetected) Influenza Type A (PCR) (NotDetected) Influenza Type B (PCR) (NotDetected) M. pneumoniae (PCR) (NotDetected) Parainfluenza 1 (PCR) (NotDetected) Parainfluenza 2 (PCR) (NotDetected) Parainfluenza 3 (PCR) (NotDetected) Parainfluenza 4 (PCR) (NotDetected) RSV (PCR) (NotDetected) Entero/Rhino (PCR) (NotDetected) 11/06/22 Range/Units 05:00 WBC (4.8-10.8) K/ul RBC (4.70-6.10) M/uL Hgb (14.0-18.0) g/dl Hct (42.0-52.0) % MCV (80.0-100.0) fL MCH (25.0-34.0) pg MCHC (32.0-36.0) g/dL RDW Std Deviation (36.4-46.3) fL RDW Coeff of Efe (11.5-14.5) % Plt Count (130-400) K/uL MPV (9.4-12.4) fL Immature Gran % (Auto) % Neut % (Auto) % Lymph % (Auto) % [place] % (Auto) % Eos % (Auto) % Baso % (Auto) % Neut # (Auto) (1.40-6.50) K/uL Lymph # (Auto) (1.2-3.4) K/uL [place] # (Auto) (0.11-0.59) K/uL Eos # (Auto) (0-0.50) K/uL Baso # (Auto) (0-0.2) K/uL Immature Gran # (Auto) (0.01-0.20) K/uL APTT (21.0-31.0) Seconds PTT Ratio Sodium (136-145) mmol/L Potassium (3.5-5.1) mmol/L Chloride (98-107) mmol/L Carbon Dioxide (21-32) mmol/L Anion Gap (3-11) BUN (6-23) mg/dl Creatinine (0.6-1.4) mg/dl Est Cr Clr Drug Dosing ml/min Est GFR ( Amer) ml/min Est GFR (Non-Af Amer) ml/min BUN/Creatinine Ratio (10-20) Glucose (70-99(Fasting)) mg/dl Estimat Average Glucose mg/dl Hemoglobin A1c (4.5-5.6) % Calcium (8.6-10.3) mg/dl Magnesium (1.7-2.4) mg/dl Total Bilirubin (0.2-1.0) mg/dl AST (13-39) U/L ALT (7-52) U/L Alkaline Phosphatase (34-104) U/L Troponin I High Sens (0-20) pg/ml B-Natriuretic Peptide (0-100) pg/ml Total Protein (6.0-8.3) gm/dl Albumin (3.4-5.0) gm/dl Globulin (2.5-4.0) gm/dl Albumin/Globulin Ratio (0.9-2) TSH (0.300-4.500) uIu/ml Free T4 (0.61-1.60) ng/dl Adenovirus (PCR) Not Detected (NotDetected) B. pertussis DNA (PCR) Not Detected (NotDetected) B.parapertussis DNA PCR Not Detected (NotDetected) C. pneumoniae DNA (PCR) Not Detected (NotDetected) Coronavirus OC43 (PCR) Not Detected (NotDetected) Coronavirus HKU1 (PCR) Not Detected (NotDetected) Coronavirus 229E (PCR) Not Detected (NotDetected) SARS-CoV-2 (PCR) Not Detected (NotDetected) Coronavirus NL63 (PCR) Not Detected (NotDetected) Human Metapneumovir PCR Not Detected (NotDetected) Influenza Type A (PCR) Not Detected (NotDetected) Influenza Type B (PCR) Not Detected (NotDetected) M. pneumoniae (PCR) Not Detected (NotDetected) Parainfluenza 1 (PCR) Not Detected (NotDetected) Parainfluenza 2 (PCR) Not Detected (NotDetected) Parainfluenza 3 (PCR) Not Detected (NotDetected) Parainfluenza 4 (PCR) Not Detected (NotDetected) RSV (PCR) Not Detected (NotDetected) Entero/Rhino (PCR) Not Detected (NotDetected) Administered Medications Discontinued Medications Albuterol (Albut/Ipratrop 3mg/0.5mg Neb 3 Ml Vial) 3 ml NEB NOW STA; Protocol Stop: 11/06/22 07:45 Last Admin: 11/06/22 08:04 Dose: 3 ml Documented By: SORAIDA Allopurinol (Allopurinol 100 Mg Tab) 100 mg PO DAILY KETAN Stop: 12/06/22 08:59 Last Admin: 11/09/22 07:52 Dose: 100 mg Documented By: Admin: 11/08/22 08:21 Dose: 100 mg Documented By: Admin: 11/07/22 08:00 Dose: 100 mg Documented By: Admin: 11/06/22 09:41 Dose: 100 mg Documented By: SORAIDA Apixaban (Apixaban 2.5 Mg Tab) 2.5 mg PO BID [facility] Stop: 12/07/22 20:59 Last Admin: 11/09/22 07:51 Dose: 2.5 mg Documented By: Admin: 11/08/22 20:43 Dose: 2.5 mg Documented By: Admin: 11/08/22 08:20 Dose: 2.5 mg Documented By: Admin: 11/07/22 20:40 Dose: 2.5 mg Documented By: LUCHO Aspirin (Aspirin 81 Mg Ectab) 81 mg PO DAILY KETAN Stop: 12/06/22 08:59 Last Admin: 11/09/22 07:52 Dose: 81 mg Documented By: Admin: 11/08/22 08:20 Dose: 81 mg Documented By: Admin: 11/07/22 07:59 Dose: 81 mg Documented By: Admin: 11/06/22 09:41 Dose: 81 mg Documented By: SORAIDA Atorvastatin Calcium (Atorvastatin 40 Mg Tab) 40 mg PO DAILY KETAN Stop: 12/06/22 08:59 Last Admin: 11/09/22 07:52 Dose: 40 mg Documented By: Admin: 11/08/22 08:20 Dose: 40 mg Documented By: Admin: 11/07/22 07:59 Dose: 40 mg Documented By: Admin: 11/06/22 09:41 Dose: 40 mg Documented By: SORAIDA Carvedilol (Carvedilol 3.125 Mg Tab) 3.125 mg PO BID KETAN Stop: 12/06/22 06:59 Last Admin: 11/06/22 08:00 Dose: 3.125 mg Documented By: SORAIDA Carvedilol (Carvedilol 3.125 Mg Tab) 3.125 mg PO BIDM KETAN Stop: 12/06/22 19:29 Last Admin: 11/09/22 07:52 Dose: 3.125 mg Documented By: Admin: 11/08/22 16:39 Dose: 3.125 mg Documented By: Admin: 11/08/22 08:20 Dose: 3.125 mg Documented By: Admin: 11/07/22 16:45 Dose: 3.125 mg Documented By: Admin: 11/07/22 07:59 Dose: 3.125 mg Documented By: Admin: 11/06/22 20:25 Dose: 3.125 mg Documented By: LUCHO Cyanocobalamin (Cyanocobalamin (B-12) 500 Mcg Tablet) 500 mcg PO DAILY KETAN Stop: 12/06/22 08:59 Last Admin: 11/09/22 07:52 Dose: 500 mcg Documented By: Admin: 11/08/22 08:20 Dose: 500 mcg Documented By: Admin: 11/07/22 08:00 Dose: 500 mcg Documented By: Admin: 11/06/22 09:41 Dose: 500 mcg Documented By: SORAIDA Folic Acid (Folic Acid 400 Mcg Tab) 800 mcg PO DAILY KETAN Stop: 12/06/22 08:59 Last Admin: 11/09/22 07:52 Dose: 800 mcg Documented By: Admin: 11/08/22 08:21 Dose: 800 mcg Documented By: Admin: 11/07/22 08:00 Dose: 800 mcg Documented By: Admin: 11/06/22 09:41 Dose: 800 mcg Documented By: SORAIDA Furosemide (Furosemide 40 Mg/4 Ml Vial) 40 mg IV NOW STA Stop: 11/06/22 06:51 Last Admin: 11/06/22 08:01 Dose: 40 mg Documented By: SORAIDA Furosemide (Furosemide 40 Mg/4 Ml Vial) 40 mg IV ONE ONE Stop: 11/07/22 10:09 Last Admin: 11/07/22 10:25 Dose: 40 mg Documented By: DANNY Furosemide (Furosemide 40 Mg/4 Ml Vial) 40 mg IV DAILY KETAN Stop: 12/08/22 08:59 Last Admin: 11/08/22 08:20 Dose: 40 mg Documented By: RHIANNON Furosemide (Furosemide 40 Mg Tab) 40 mg PO QAM KETAN Stop: 12/09/22 08:59 Last Admin: 11/09/22 07:52 Dose: 40 mg Documented By: RHIANNON Heparin Sodium/Dextrose (Heparin Iv Adult Wt-Based Low-Dose *No* Bolus Protocol) 1 each IV ONE STA; Protocol Stop: 11/06/22 07:04 Last Admin: 11/06/22 08:35 Dose: 1 each Documented By: SORAIDA Hydralazine HCl (Hydralazine Hcl 20 Mg/Ml Vial) 5 mg IV NOW ONE Stop: 11/06/22 04:41 Last Admin: 11/06/22 05:01 Dose: 5 mg Documented By: CLEMENTE Hydralazine HCl (Hydralazine 10 Mg Tab) 5 mg PO TID KETAN Stop: 12/07/22 20:59 Last Admin: 11/08/22 08:20 Dose: 5 mg Documented By: Admin: 11/07/22 20:40 Dose: 5 mg Documented By: LUCHO Hydralazine HCl (Hydralazine 10 Mg Tab) 10 mg PO BID17 KETAN Stop: 12/08/22 16:59 Last Admin: 11/09/22 07:52 Dose: 10 mg Documented By: Admin: 11/08/22 16:39 Dose: 10 mg Documented By: RHIANNON Magnesium Sulfate/Dextrose (Magnesium Sulfate / D5w) 1 gm in 100 mls @ 50 mls/hr IV Q2H KETAN Stop: 11/06/22 10:14 Last Infusion: 11/06/22 10:53 Dose: 0 mls/hr Documented By: Admin: 11/06/22 08:53 Dose: 50 mls/hr Documented By: Infusion: 11/06/22 08:43 Dose: 0 mls/hr Documented By: Admin: 11/06/22 06:43 Dose: 50 mls/hr Documented By: CLEMENTE Heparin Sodium/Dextrose (Heparin Sodium/Dextrose) 25,000 units in 500 mls @ 20 mls/hr IV .Q24H [facility]; Protocol Stop: 11/07/22 21:00 Last Titration: 11/08/22 08:13 Dose: 0 units/hr, 0 mls/hr Documented By: RHIANNON Co-signed By: JOSEFINA Admin: 11/08/22 00:52 Dose: Not Given Documented By: AMIesha Titration: 11/07/22 16:14 Dose: 1,000 units/hr, 20 mls/hr Documented By: DANNY Co-signed By: ENS Titration: 11/07/22 08:06 Dose: 1,000 units/hr, 20 mls/hr Documented By: DANNY Co-signed By: HM Titration: 11/07/22 07:14 Dose: 1,100 units/hr, 22 mls/hr Documented By: DANNY Co-signed By: AMM Admin: 11/07/22 06:38 Dose: 1,100 units/hr, 22 mls/hr Documented By: AMM Co-signed By: ASM Titration: 11/07/22 06:38 Dose: 1,100 units/hr, 22 mls/hr Documented By: AMIesha Co-signed By: ASM Titration: 11/06/22 23:52 Dose: 1,100 units/hr, 22 mls/hr Documented By: LUCHO Co-signed By: ASM Titration: 11/06/22 16:18 Dose: 1,100 units/hr, 22 mls/hr Documented By: OCTAVIO Co-signed By: EMMartin Admin: 11/06/22 08:33 Dose: 1,000 units/hr, 20 mls/hr Documented By: SORAIDA Co-signed By: MARIA DEL CARMEN Insulin Aspart (Insulin Aspart Per Unit Charge) 0 units SC ACHS [facility] Stop: 12/06/22 08:55 Last Admin: 11/09/22 12:05 Dose: 2 units Documented By: RHIANNON Co-signed By: JOSEFINA Admin: 11/09/22 07:51 Dose: 3 units Documented By: RHIANNON Co-signed By: JOSEFINA Admin: 11/08/22 20:47 Dose: Not Given Documented By: AMIesha Admin: 11/08/22 16:38 Dose: 3 units Documented By: RHIANNON Co-signed By: JOSEFINA Admin: 11/08/22 11:48 Dose: 3 units Documented By: RHIANNON Co-signed By: JOSEFINA Admin: 11/08/22 08:19 Dose: 1 units Documented By: RHIANNON Co-signed By: JOSEFINA Admin: 11/07/22 20:31 Dose: Not Given Documented By: Admin: 11/07/22 16:43 Dose: 1 units Documented By: DANNY Co-signed By: ENS Admin: 11/07/22 11:52 Dose: 2 units Documented By: DANNY Co-signed By: CA Admin: 11/07/22 07:52 Dose: 2 units Documented By: DANNY Co-signed By: MANDIE Admin: 11/06/22 20:28 Dose: 1 units Documented By: LUCHO Co-signed By: ASM Admin: 11/06/22 18:54 Dose: 2 units Documented By: OCTAVIO Co-signed By: RASHIDA Admin: 11/06/22 13:41 Dose: 2 units Documented By: OCTAVIO Co-signed By: SORAIDA Admin: 11/06/22 09:04 Dose: Not Given Documented By: SORAIDA Thiamine HCl (Thiamine Hcl 100 Mg Tab) 100 mg PO DAILY KETAN Stop: 12/06/22 08:59 Last Admin: 11/09/22 07:52 Dose: 100 mg Documented By: Admin: 11/08/22 08:21 Dose: 100 mg Documented By: Admin: 11/07/22 08:00 Dose: 100 mg Documented By: Admin: 11/06/22 09:42 Dose: 100 mg Documented By: SORAIDA Imaging Data Radiologist's Impression: Chest X-Ray 11/06/22 04:16 XR chest 1V portable CLINICAL HISTORY: Dyspnea. COMPARISON STUDY: Chest radiograph May 26, 2022. FINDINGS: Low lung volumes are again noted. There are median sternotomy wires. Cardiomegaly is unchanged. There is pulmonary vascular congestion. Suspected sma ll right pleural effusion is noted. There is no pneumothorax. Right basilar opacity is noted. There is also minimal left basilar opacity. IMPRESSION: 1. Cardiomegaly with pulmonary vascular congestion. 2. Small right pleural effusion. Bibasilar opacities which likely reflect atelectasis although consolidation could appear similar. Radiographic follow-up is recommended. ACT 112: Negative or not required by law. Electronically signed by: Estuardo George M.D. 11/06/2022 7:58 AM Discharge Plan Visit Data Chief Complaint: Respiratory Problems Stated Complaint: HARD TO BREATHE ED Provider: Neetu Emerson Discharge Problem: Acute dyspnea, Elevated troponin, H/O CHF Patient Disposition: Admitted As Inpatient Discharge Instructions Interventions: ED Discharge Assessment Last Done: 11/06/22 07:50
[2022-11-08 06:42] LABS: Hematocrit (blood only) 37.7 % (42.0-52.0); Hemoglobin 12.3 g/dl (14.0-18.0); Mean Corpuscular Hemoglobin 29.9 pg (25.0-34.0); Mean Corpuscular Hgb Conc 32.6 g/dL (32.0-36.0); Mean Corpuscular Volume 91.5 fL (80.0-100.0); Mean Platelet Volume 10.1 fL (9.4-12.4); Platelet Count 80 K/uL (130-400); RDW Coefficient of Variation 15.2 % (11.5-14.5); RDW Standard Deviation 50.1 fL (36.4-46.3); Red Blood Count 4.12 M/uL (4.70-6.10); White Blood Count 5.45 K/ul (4.8-10.8)
[2022-11-08 06:57] LABS: BUN Creatinine Ratio 25.3 (10-20); Calcium 8.9 mg/dl (8.6-10.3); Creatinine Clr Calc Pharmacy 37.2 ml/min; Est GFR (African American) 39.7 ml/min; Est GFR (Non-African American) 34.3 ml/min; Magnesium 1.7 mg/dl (1.7-2.4); Potassium 4.1 mmol/L (3.5-5.1)
[2022-11-08 07:48] LABS: Partial Thromboplastin Ratio 2.5
[2022-11-08 08:00] LABS: Partial Thromboplastin Time 69.7 Seconds (21.0-31.0)
[2022-11-08] MEDS: INSULIN ASPART PER UNIT CHARGE SC SCH ×4 (08:19→20:47)
[2022-11-08] MEDS: ATORVASTATIN 40 MG TAB PO SCH (08:20)
[2022-11-08] MEDS: ASPIRIN 81 MG ECTAB PO SCH (08:20)
[2022-11-08] MEDS: CYANOCOBALAMIN (B-12) 500 MCG TABLET PO SCH (08:20)
[2022-11-08] MEDS: hydrALAZINE 10 MG TAB PO SCH ×2 (08:20→16:39)
[2022-11-08] MEDS: APIXABAN 2.5 MG TAB PO SCH ×2 (08:20→20:43)
[2022-11-08] MEDS: carvediloL 3.125 MG TAB PO SCH ×2 (08:20→16:39)
[2022-11-08] MEDS: THIAMINE HCL 100 MG TAB PO SCH (08:21)
[2022-11-08] MEDS: FOLIC ACID 400 MCG TAB PO SCH (08:21)
[2022-11-08] MEDS: allopurinoL 100 MG TAB PO SCH (08:21)
[2022-11-08] MEDS ORDERED: FUROSEMIDE 40 MG/4 ML VIAL IV SCH (09:00)
--- NOTE | 2022-11-08 11:30 | Cardiology Progress Note ---
Date of Service November 08, 2022 Assessment & Plan (1) Acute on chronic heart failure with preserved ejection fraction (HFpEF): Plan: - Patient previously admitted with heart failure decompensation May, -Although his blood pressure was elevated on arrival, his symptoms certainly sound consistent with volume overload and have since improved. -Renal function stable. Continue furosemide , 40 mg IV daily. (2) Prosthetic aortic valve stenosis: Plan: - This is his second hospitalization for congestive heart failure decompensation. -Recent echocardiogram studies 05/27/2022 ([facility]), 06/10/2022 ([facility]), and 11/06/22 ([facility]) all suggestive of preserved ejection fraction, severe prosthetic stenosis. -Outpatient follow-up in the valve clinic is tentatively scheduled for 02/25/2023,will request for this to be moved up. (3) Atrial fibrillation: Plan: - Patient with history of bradycardia. Atenolol discontinued in May, due to relative bradycardia then transitioned to metoprolol succinate 12.5 mg daily. 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 Presenting rhythm today is atrial fibrillation with controlled to relatively slow ventricular response. -Patient transitioned to carvedilol 3.125 mg twice daily on admission given findings of hypertension and he is tolerating this well thus far. -Patient's [id number] score = at leas 5 for age > 75 (2 points), hypertension, vascular disease in the form of coronary heart disease, and diabetes. -Transition from heparin to Eliquis 2.5 mg twice daily today. We will need to assess the affordability of this prior to discharge (4) Stage 3b chronic kidney disease (CKD): Plan: - Most recent outpatient chemistry panel 10/17/2022 included creatinine of 1.7, EGFR of 39 mL/min/m -Patient had CONCEPCION at the time of his hospital stay in May, with creatinine that peaked at 3.11 at that time. -Creatinine improved status post diuretic therapy as hospital stay from 1.61 on 11/06-1.43 on 11/07/2022 -We will diurese cautiously and monitor kidney function electrolytes (5) HTN (hypertension): Plan: - BP remains above goal despite having transition to carvedilol and administering IV furosemide. Need to be cautious not to decrease his blood pressure too much due to his underlying aortic stenosis. -His renal function is such that he is felt to be a poor candidate for the addition of an SHANNAN inhibitor or ARB. Will cautiously start hydralazine 5 mg 3 times daily. Plan 11/08/2022 previous interventions and treatments as above. Patient has responded briskly to IV diuretics. Blood pressure trending towards better control Atrial fibrillation rates controlled without elevation Recommendations: Discontinue IV furosemide, begin furosemide 40 mg p.o. daily Hydralazine 10 mg p.o. twice daily for additional hypertension control Eliquis 2.5 mg twice per day for anticoagulation BMP 1 week post discharge Patient desires discharge today no contraindications from cardiac standpoint if ambulatory without difficulty Admission and Anticipated Discharge Date Admission Date: November 06, 2022 Subjective Patient seen and examined, chart, medications, telemetry reviewed. Patient feels substantially improved. Brisk diuresis since hospitalization lower extremity edema resolved now oxygenating well on room air. No chest pains, dizziness or lightheadedness. Blood pressure trending towards better control. No fevers or chills Review of Systems Review of Systems: All systems reviewed & are unremarkable except as noted in Subjective Physical Exam Constitutional: WD/WN, vitals as above Eyes: PERRL, conjunctivae normal, anicteric sclerae ENMT: external ear and nose normal, oropharynx normal Neck: trachea midline, no thyromegaly Respiratory: normal respiratory effort, lungs clear to auscultation Cardiovascular: Rate/Rhythm: + irregularly irregular Heart Sounds: + murmur (1/6 systolic murmur) Extremities: + edema (Trace edema at the sock lines) Gastrointestinal (Abdomen): normal bowel sounds, soft, nontender, no hepatosplenomegaly Neurologic: PERRL, EOMI, accommodation nl, no face palsy, no dysarthria Results & Data Vital Signs (Past 12 Hours) Vital Signs Temp Pulse Pulse Resp BP Pulse Ox O2 Del Method 11/08/22 08:00 Room Air 11/08/22 07:15 36.6 C 56 L 19 155/74 H 99 Room Air 11/08/22 03:48 36.3 C L 11/08/22 03:37 52 L 18 144/48 H 99 CPAP 11/08/22 00:39 54 L 11/07/22 23:53 36.4 C L 51 L 18 125/48 L 98 CPAP Laboratory Results Laboratory Results - last 24 hr 11/07/22 11/07/22 11/07/22 14:31 16:18 20:22 WBC RBC Hgb Hct MCV MCH MCHC RDW Std Deviation RDW Coeff of Efe Plt Count MPV APTT 57.6 H* PTT Ratio 2.0 Sodium Potassium Chloride Carbon Dioxide Anion Gap BUN Creatinine Est Cr Clr Drug Dosing Est GFR ( Amer) Est GFR (Non-Af Amer) BUN/Creatinine Ratio Glucose POC Glucose 100 H 128 H Calcium Magnesium 11/08/22 11/08/22 11/08/22 06:12 06:12 06:12 WBC 5.45 RBC 4.12 L Hgb 12.3 L Hct 37.7 L MCV 91.5 MCH 29.9 MCHC 32.6 RDW Std Deviation 50.1 H RDW Coeff of Efe 15.2 H Plt Count 80 L MPV 10.1 APTT 69.7 H* PTT Ratio 2.5 Sodium 138 Potassium 4.1 Chloride 101 Carbon Dioxide 29 Anion Gap 8 BUN 45 H Creatinine 1.78 H D Est Cr Clr Drug Dosing 37.2 Est GFR ( Amer) 39.7 Est GFR (Non-Af Amer) 34.3 BUN/Creatinine Ratio 25.3 H Glucose 105 H POC Glucose Calcium 8.9 Magnesium 1.7 11/08/22 11/08/22 07:18 11:24 WBC RBC Hgb Hct MCV MCH MCHC RDW Std Deviation RDW Coeff of Efe Plt Count MPV APTT PTT Ratio Sodium Potassium Chloride Carbon Dioxide Anion Gap BUN Creatinine Est Cr Clr Drug Dosing Est GFR ( Amer) Est GFR (Non-Af Amer) BUN/Creatinine Ratio Glucose POC Glucose 106 H 99 Calcium Magnesium
--- NOTE | 2022-11-08 15:06 | Hospitalist Progress Note ---
Date of Service November 08, 2022 Assessment & Plan (1) SOB (shortness of breath): Plan: Acute on chronic heart failure with preserved ejection fraction Bioprosthetic aortic valve stenosis --CXR:Cardiomegaly with pulmonary vascular congestion. Small right pleural effusion. Bibasilar opacities which likely reflect atelectasis although consolidation could appear similar. Radiographic follow-up is recommended. --ECHO: Severe concentric LVH, left ventricle wall motion normal. EF 60 to 65%. Bioprosthetic aortic valve. Mild to moderate aortic regurgitation. Borderline severe prosthetic aortic valve stenosis. Peak aortic valve velocity 3.7 m/s. Mean gradient 28 mmHg, UQ=128. Severe mitral annular calcification. Moderate focal calcification of the mitral valve leaflets. Mild tricuspid regurgitation. Severe pulmonary hypertension is present. --Monitor volume status, electrolytes, renal function Monitor I's and O's, daily weight Appreciate cardiology input Needs follow-up with valve clinic upon discharge IV Lasix transitioned to Lasix 40mg daily Uncontrolled hypertension Continue Coreg Monitor BP Added hydralazine 10mg BID Recurrent A-fib H/O bradycardia Continue Coreg On IV heparin for anticoagulation>> transitioned to Eliquis Appreciate cardiology input Hyperlipidemia on statin DM II HbA1c 6.0 Diet-controlled Continue insulin while hospitalized Monitor BGs H/O NAFLD cirrhosis SANDI on CPAP Monitor volume status Continue CPAP at bedtime CKD III Cr at baseline Monitor renal function Avoid nephrotoxic agents as able Chronic anemia 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 Hb at baseline Monitor CBC Hypomagnesemia Replete electrolytes as needed DVT Px: Eliquis Code Status Full code Disposition PT/OT prior to discharge Admission and Anticipated Discharge Date Admission Date: November 06, 2022 Subjective Patient is seen and examined at bedside States feeling well Offers no new complaints Dyspnea, leg swelling continues to improve Denies any chest pain, dizziness, nausea, abdominal pain Saturating well on room air Review of Systems Review of Systems: All systems reviewed & are unremarkable except as noted in Subjective Physical Exam Physical Exam: Physical Exam: Vitals signs as noted above General Appearance:Moderately built and nourished, no apparent distress Head: normocephalic, Atraumatic Eyes: normal inspection, EOMI Neck: supple, Trachea midline Respiratory/Chest: Normal breath sounds, basal rales, No accessory muscle use Cardiovascular: Irregularly irregular, +murmur Abdomen/GI:Soft, Non tender, Protuberant, Bowel sounds present Extremities/Musculoskeletal:normal inspection, 2+ edema Neurologic/Psych:AAOX3, grossly no focal neurological deficits Skin: normal color, warm Results & Data Results & Data Vital Signs (Past 12 Hours) Vital Signs Temp Pulse Resp BP Pulse Ox O2 Del Method 11/08/22 11:43 36.4 C L 57 L 19 156/63 H 98 Room Air 11/08/22 08:00 Room Air 11/08/22 07:15 36.6 C 56 L 19 155/74 H 99 Room Air 11/08/22 03:48 36.3 C L 11/08/22 03:37 52 L 18 144/48 H 99 CPAP Laboratory Results Short CBC 11/08/22 Range/Units 06:12 WBC 5.45 (4.8-10.8) K/ul Hgb 12.3 L (14.0-18.0) g/dl Hct 37.7 L (42.0-52.0) % Plt Count 80 L (130-400) K/uL BMP 11/08/22 06:12 Sodium 138 Potassium 4.1 Chloride 101 Carbon Dioxide 29 BUN 45 H Creatinine 1.78 H D Glucose 105 H Calcium 8.9
[2022-11-09 06:17] LABS: Hematocrit (blood only) 37.5 % (42.0-52.0); Hemoglobin 12.6 g/dl (14.0-18.0); Mean Corpuscular Hemoglobin 30.4 pg (25.0-34.0); Mean Corpuscular Hgb Conc 33.6 g/dL (32.0-36.0); Mean Corpuscular Volume 90.4 fL (80.0-100.0); Mean Platelet Volume 11.5 fL (9.4-12.4); Platelet Count 78 K/uL (130-400); RDW Standard Deviation 49.5 fL (36.4-46.3); Red Blood Count 4.15 M/uL (4.70-6.10); White Blood Count 6.36 K/ul (4.8-10.8)
[2022-11-09 06:31] LABS: BUN Creatinine Ratio 30.4 (10-20); Calcium 8.8 mg/dl (8.6-10.3); Creatinine Clr Calc Pharmacy 38.6 ml/min; Est GFR (African American) 41.7 ml/min; Magnesium 1.7 mg/dl (1.7-2.4); Potassium 4.3 mmol/L (3.5-5.1)
[2022-11-09] MEDS: APIXABAN 2.5 MG TAB PO SCH (07:51)
[2022-11-09] MEDS: INSULIN ASPART PER UNIT CHARGE SC SCH ×2 (07:51→12:05)
[2022-11-09] MEDS: ASPIRIN 81 MG ECTAB PO SCH (07:52)
[2022-11-09] MEDS: carvediloL 3.125 MG TAB PO SCH (07:52)
[2022-11-09] MEDS: allopurinoL 100 MG TAB PO SCH (07:52)
[2022-11-09] MEDS: ATORVASTATIN 40 MG TAB PO SCH (07:52)
[2022-11-09] MEDS: CYANOCOBALAMIN (B-12) 500 MCG TABLET PO SCH (07:52)
[2022-11-09] MEDS: FOLIC ACID 400 MCG TAB PO SCH (07:52)
[2022-11-09] MEDS: hydrALAZINE 10 MG TAB PO SCH (07:52)
[2022-11-09] MEDS: THIAMINE HCL 100 MG TAB PO SCH (07:52)
[2022-11-09] MEDS ORDERED: FUROSEMIDE 40 MG TAB PO SCH (09:00)
--- NOTE | 2022-11-09 12:08 | Hospitalist Progress Note ---
Date of Service November 09, 2022 Assessment & Plan (1) SOB (shortness of breath): Plan: Acute on chronic heart failure with preserved ejection fraction Bioprosthetic aortic valve stenosis --CXR:Cardiomegaly with pulmonary vascular congestion. Small right pleural effusion. Bibasilar opacities which likely reflect atelectasis although consolidation could appear similar. Radiographic follow-up is recommended. --ECHO: Severe concentric LVH, left ventricle wall motion normal. EF 60 to 65%. Bioprosthetic aortic valve. Mild to moderate aortic regurgitation. Borderline severe prosthetic aortic valve stenosis. Peak aortic valve velocity 3.7 m/s. Mean gradient 28 mmHg, XB=200. Severe mitral annular calcification. Moderate focal calcification of the mitral valve leaflets. Mild tricuspid regurgitation. Severe pulmonary hypertension is present. --Monitor volume status, electrolytes, renal function Monitor I's and O's, daily weight Appreciate cardiology input Needs follow-up with valve clinic upon discharge IV Lasix transitioned to Lasix 40mg daily Plan to discharge home today Needs follow-up with cardiology upon discharge Uncontrolled hypertension Continue Coreg Monitor BP Added hydralazine 10mg BID BP better Recurrent A-fib H/O bradycardia Continue Coreg On IV heparin for anticoagulation>> transitioned to Eliquis Appreciate cardiology input Hyperlipidemia on statin DM II HbA1c 6.0 Diet-controlled Continue insulin while hospitalized Monitor BGs H/O NAFLD cirrhosis SANDI on CPAP Monitor volume status Continue CPAP at bedtime CKD III Cr at baseline Monitor renal function Avoid nephrotoxic agents as able Chronic anemia 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 Hb at baseline Monitor CBC Hypomagnesemia Replete electrolytes as needed DVT Px: Eliquis Code Status Full code Disposition Home Admission and Anticipated Discharge Date Admission Date: November 06, 2022 Subjective Patient is seen and examined at bedside Doing well today Sitting in chair during my encounter Offers no complaint Discussed with cardiology today Offers no new complaints Dyspnea, leg swelling improved Denies any chest pain, dizziness, nausea, abdominal pain Plan to discharge home today Had PT tracey this morning Review of Systems Review of Systems: All systems reviewed & are unremarkable except as noted in Subjective Physical Exam Physical Exam: Physical Exam: Vitals signs as noted above General Appearance:Moderately built and nourished, no apparent distress Head: normocephalic, Atraumatic Eyes: normal inspection, EOMI Neck: supple, Trachea midline Respiratory/Chest: Normal breath sounds, basal rales, No accessory muscle use Cardiovascular: Irregularly irregular, +murmur Abdomen/GI:Soft, Non tender, Protuberant, Bowel sounds present Extremities/Musculoskeletal:normal inspection, 2+ edema Neurologic/Psych:AAOX3, grossly no focal neurological deficits Skin: normal color, warm Results & Data Results & Data Vital Signs (Past 12 Hours) Vital Signs Temp Pulse Pulse Resp BP Pulse Ox O2 Del Method 11/09/22 11:52 36.8 C 69 19 126/68 97 Room Air 11/09/22 08:00 Room Air 11/09/22 07:02 36.4 C L 67 18 154/75 H 100 Room Air 11/09/22 03:35 36.2 C L 47 L 18 145/71 H 98 Nasal CPAP Laboratory Results Short CBC 11/09/22 Range/Units 05:46 WBC 6.36 (4.8-10.8) K/ul Hgb 12.6 L (14.0-18.0) g/dl Hct 37.5 L (42.0-52.0) % Plt Count 78 L (130-400) K/uL BMP 11/09/22 05:46 Sodium 138 Potassium 4.3 Chloride 102 Carbon Dioxide 27 BUN 52 H Creatinine 1.71 H Glucose 107 H Calcium 8.8
--- NOTE | 2022-11-09 12:22 | Discharge Summary ---
Date of Service November 09, 2022 Admission HPI Per Admitting Provider History obtained from patient and records. Medical history significant for chronic diastolic heart failure (EF 60 to 65%, TTE 2021), severe bioprosthetic AVR stenosis, hx PAF as per records, valvular heart disease (mild to moderate AR, mild MR), pulmonary hypertension, hypertension, hyperlipidemia, DM2 diet-controlled, NAFLD cirrhosis, SANDI on CPAP, history recurrent right pneumothorax, CRI (patient creatinine 1.7), chronic anemia (baseline hemoglobin of 11), chronic thrombocytopenia, skin cancer as per records. Last confinement May 2022 for acute hyperkalemia. Lisinopril discontinued. Atenolol held upon discharge due to bradycardia during confinement. Low-dose Toprol-XL initiated outpatient due to PAF concerns. Few days history of worsening shortness of breath especially on exertion. No chest pain or cough symptoms. Mild ankle edema. No headache symptoms. Blood pressure kind of high at home as per patient. Patient compliant with home meds, denies dietary indiscretion, OTC NSAID intake, or unusual stress. SBP 190s to 200s upon arrival at the ER. IV hydralazine administered at the ER. 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 Admission Exam Per Admitting Provider GENERAL: Comfortable, pleasant, obese, no respiratory distress SKIN: Pallor, warm HEENT: Pale palpebral conjunctivae, no ptosis, moist buccal mucosa NECK : Supple, short neck, no tenderness CHEST : Decreased breath sounds, no tenderness HEART : Irregular, systolic murmur ABDOMEN: Some distention, nontender EXTREMITIES : Minimal LE swelling, no LE tenderness, no other conspicuous deformities noted NEUROLOGIC : Coherent, no facial asymmetry, slightly hard of hearing, no other gross focality Principal Diagnosis Acute on chronic heart failure with preserved ejection fraction Bioprosthetic aortic valve stenosis Uncontrolled hypertension Recurrent A-fib Discharge Data Allergies Allergy/AdvReac Type Severity Reaction Status Date / Time felodipine Allergy Intermediate HIVES Verified 11/06/22 07:56 Consultations 11/06/22 05:58 ED Decision to Admit Stat 11/06/22 08:16 Consult Cardiology Routine Procedures Performed Laboratory Results WBC 6.36 K/ul (4.8-10.8) 11/09/22 05:46 RBC 4.15 M/uL (4.70-6.10) L 11/09/22 05:46 Hgb 12.6 g/dl (14.0-18.0) L 11/09/22 05:46 Hct 37.5 % (42.0-52.0) L 11/09/22 05:46 MCV 90.4 fL (80.0-100.0) 11/09/22 05:46 MCH 30.4 pg (25.0-34.0) 11/09/22 05:46 MCHC 33.6 g/dL (32.0-36.0) 11/09/22 05:46 RDW Std Deviation 49.5 fL (36.4-46.3) H 11/09/22 05:46 RDW Coeff of Efe 15.0 % (11.5-14.5) H 11/09/22 05:46 Plt Count 78 K/uL (130-400) L 11/09/22 05:46 MPV 11.5 fL (9.4-12.4) 11/09/22 05:46 Immature Gran % (Auto) 0.4 % 11/07/22 07:00 Neut % (Auto) 61.0 % 11/07/22 07:00 Lymph % (Auto) 24.2 % 11/07/22 07:00 Bay % (Auto) 9.1 % 11/07/22 07:00 Eos % (Auto) 4.7 % 11/07/22 07:00 Baso % (Auto) 0.6 % 11/07/22 07:00 Neut # (Auto) 3.10 K/uL (1.40-6.50) 11/07/22 07:00 Lymph # (Auto) 1.23 K/uL (1.2-3.4) 11/07/22 07:00 Bay # (Auto) 0.46 K/uL (0.11-0.59) 11/07/22 07:00 Eos # (Auto) 0.24 K/uL (0-0.50) 11/07/22 07:00 Baso # (Auto) 0.03 K/uL (0-0.2) 11/07/22 07:00 Immature Gran # (Auto) 0.02 K/uL (0.01-0.20) 11/07/22 07:00 APTT 69.7 Seconds (21.0-31.0) H* 11/08/22 06:12 PTT Ratio 2.5 11/08/22 06:12 Sodium 138 mmol/L (136-145) 11/09/22 05:46 Potassium 4.3 mmol/L (3.5-5.1) 11/09/22 05:46 Chloride 102 mmol/L (98-107) 11/09/22 05:46 Carbon Dioxide 27 mmol/L (21-32) 11/09/22 05:46 Anion Gap 9 (3-11) 11/09/22 05:46 BUN 52 mg/dl (6-23) H 11/09/22 05:46 Creatinine 1.71 mg/dl (0.6-1.4) H 11/09/22 05:46 Est Cr Clr Drug Dosing 38.6 ml/min 11/09/22 05:46 Est GFR ( Amer) 41.7 ml/min 11/09/22 05:46 Est GFR (Non-Af Amer) 36.0 ml/min 11/09/22 05:46 BUN/Creatinine Ratio 30.4 (10-20) H 11/09/22 05:46 Glucose 107 mg/dl (70-99(Fasting)) H 11/09/22 05:46 POC Glucose 126 mg/dl (70-99) H 11/09/22 11:10 Estimat Average Glucose 126 mg/dl 11/06/22 03:50 Hemoglobin A1c 6.0 % (4.5-5.6) H 11/06/22 03:50 Calcium 8.8 mg/dl (8.6-10.3) 11/09/22 05:46 Magnesium 1.7 mg/dl (1.7-2.4) 11/09/22 05:46 Total Bilirubin 1.0 mg/dl (0.2-1.0) 11/06/22 03:50 AST 29 U/L (13-39) 11/06/22 03:50 ALT 21 U/L (7-52) 11/06/22 03:50 Alkaline Phosphatase 195 U/L (34-104) H 11/06/22 03:50 Troponin I High Sens 24.1 pg/ml (0-20) H 11/06/22 03:50 B-Natriuretic Peptide 395 pg/ml (0-100) H 11/06/22 03:50 Total Protein 7.5 gm/dl (6.0-8.3) 11/06/22 03:50 Albumin 3.8 gm/dl (3.4-5.0) 11/06/22 03:50 Globulin 3.7 gm/dl (2.5-4.0) 11/06/22 03:50 Albumin/Globulin Ratio 1.0 (0.9-2) 11/06/22 03:50 Procalcitonin 0.07 ng/ml (0-0.5) 11/07/22 07:00 TSH 4.553 uIu/ml (0.300-4.500) H 11/06/22 03:50 Free T4 0.89 ng/dl (0.61-1.60) 11/06/22 03:50 Adenovirus (PCR) Not Detected (NotDetected) 11/06/22 05:00 B. pertussis DNA (PCR) Not Detected (NotDetected) 11/06/22 05:00 B.parapertussis DNA PCR Not Detected (NotDetected) 11/06/22 05:00 C. pneumoniae DNA (PCR) Not Detected (NotDetected) 11/06/22 05:00 Coronavirus OC43 (PCR) Not Detected (NotDetected) 11/06/22 05:00 Coronavirus HKU1 (PCR) Not Detected (NotDetected) 11/06/22 05:00 Coronavirus 229E (PCR) Not Detected (NotDetected) 11/06/22 05:00 SARS-CoV-2 (PCR) Not Detected (NotDetected) 11/06/22 05:00 Coronavirus NL63 (PCR) Not Detected (NotDetected) 11/06/22 05:00 Human Metapneumovir PCR Not Detected (NotDetected) 11/06/22 05:00 Influenza Type A (PCR) Not Detected (NotDetected) 11/06/22 05:00 Influenza Type B (PCR) Not Detected (NotDetected) 11/06/22 05:00 M. pneumoniae (PCR) Not Detected (NotDetected) 11/06/22 05:00 Parainfluenza 1 (PCR) Not Detected (NotDetected) 11/06/22 05:00 Parainfluenza 2 (PCR) Not Detected (NotDetected) 11/06/22 05:00 Parainfluenza 3 (PCR) Not Detected (NotDetected) 11/06/22 05:00 Parainfluenza 4 (PCR) Not Detected (NotDetected) 11/06/22 05:00 RSV (PCR) Not Detected (NotDetected) 11/06/22 05:00 Entero/Rhino (PCR) Not Detected (NotDetected) 11/06/22 05:00 Impressions Chest X-Ray 11/06/22 04:16 XR chest 1V portable CLINICAL HISTORY: Dyspnea. COMPARISON STUDY: Chest radiograph May 26, 2022. FINDINGS: Low lung volumes are again noted. There are median sternotomy wires. Cardiomegaly is unchanged. There is pulmonary vascular congestion. Suspected small right pleural effusion is noted. There is no pneumothorax. Right basilar opacity is noted. There is also minimal left basilar opacity. IMPRESSION: 1. Cardiomegaly with pulmonary vascular congestion. 2. Small right pleural effusion. Bibasilar opacities which likely reflect atelectasis although consolidation could appear similar. Radiographic follow-up is recommended. ACT 112: Negative or not required by law. Electronically signed by: Estuardo George M.D. 11/06/2022 7:58 AM Hospital Course (1) SOB (shortness of breath): Acute on chronic heart failure with preserved ejection fraction Bioprosthetic aortic valve stenosis --CXR:Cardiomegaly with pulmonary vascular congestion. Small right pleural effusion. Bibasilar opacities which likely reflect atelectasis although consolidation could appear similar. Radiographic follow-up is recommended. --ECHO: Severe concentric LVH, left ventricle wall motion normal. EF 60 to 65%. Bioprosthetic aortic valve. Mild to moderate aortic regurgitation. Borderline severe prosthetic aortic valve stenosis. Peak aortic valve velocity 3.7 m/s. Mean gradient 28 mmHg, OS=046. Severe mitral annular calcification. Moderate focal calcification of the mitral valve leaflets. Mild tricuspid regurgitation. Severe pulmonary hypertension is present. --Monitor volume status, electrolytes, renal function Monitor I's and O's, daily weight Appreciate cardiology input Needs follow-up with valve clinic upon discharge IV Lasix transitioned to Lasix 40mg daily Plan to discharge home today Needs follow-up with cardiology upon discharge Uncontrolled hypertension Continue Coreg Monitor BP Added hydralazine 10mg BID BP better Recurrent A-fib H/O bradycardia Continue Coreg On IV heparin for anticoagulation>> transitioned to Eliquis Appreciate cardiology input Hyperlipidemia on statin DM II HbA1c 6.0 Diet-controlled Continue insulin while hospitalized Monitor BGs H/O NAFLD cirrhosis SANDI on CPAP Monitor volume status Continue CPAP at bedtime CKD III Cr at baseline Monitor renal function Avoid nephrotoxic agents as able Chronic anemia 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 Hb at baseline Monitor CBC Hypomagnesemia Replete electrolytes as needed DVT Px: Eliquis Code Status Full code Disposition Home Total Time Total Time Spent Total Time Spent (In Minutes): 54 minutes Discharge Plan Discharge Items Patient Disposition: Home - Self-Care Reason For Visit: AF, CHF Discharge Diagnosis: Acute on chronic heart failure with preserved ejection fraction Bioprosthetic aortic valve stenosis Uncontrolled hypertension Recurrent A-fib Activity: Per Instructions section Exercise/Sports: Wait until after follow-up appointment Non-emergency contact: Primary Care Provider and Emergency Communications Dispatcher Call non-emergency contact if: you have any medication questions, your symptoms worsen, your pain is concerning for you and you have a fever Follow-up/Referrals: Nick Edwards MD [Primary Care Provider] - (Date & Time 11/13/2022 11:00 AM Provider Nick Edwards MD [facility] ) Diet: Carb Consistent or DM2 and Heart Healthy Fluids: 2000ml (8 cups) Addtl Attending Provider Instructions: Follow-up with your primary care physician Dr. Edwards on 11/13/2022 11:00 AM Follow-up with your bench grinder Dr. Calero in 2-4 weeks as advised Follow-up with valve clinic as advised by your bench grinder. --- Your blood pressure medications have been adjusted. Monitor your blood pressure regularly at home. Discuss with your physician for further recommendations. Seek immediate medical attention if your symptoms reoccur or worsen Please take all medications as instructed on discharge list below. Please call if you have any questions or problems. You can reach a [facility] hospitalist on duty at [facility] 24 hours a day by calling [phone] Call your Primary Care doctor if any of the following symptoms or problems start or get worse: * Shortness of breath or difficulty breathing * Wake up at night short of breath * Chest pain * Cough * Swelling of your hands, feet, or legs * More fatigued or tired with your normal activity * Palpitations - sudden fast heart beats WEIGHT * Weigh yourself every morning after using the bathroom. * Use the same scale. * Wear the same amount of clothing. * Write your weight down on a chart. * Call your Primary Care doctor if you gain more than 2-3 pounds in 1-2 days. MEDICATIONS * Use this discharge instruction sheet for medication instructions. * Take your medications at the time your doctor ordered. * Do not skip a dose of your medicines. * If you miss a dose of medicine, take it as soon as possible, but DO NOT DOUBLE A DOSE. * Read your medicine information when you get home. * Know all of the side effects of your medicine. If in doubt, ask your pharmacist * Call your Primary Care doctor's office if you have any side effects. * Be sure all of your doctors know what medicine and herbs you take (including cold, flu, and herbal medicine). Take the following with you to your follow-up doctor appointments: * Weight Chart * Medication List * List of questions Do not drink excessive alcohol, beer or wine. Pending Studies at Discharge: No Stand-Alone Forms: My [facility], Smoking Cessation Medications and DC Order Prescriptions: New furosemide 40 mg Tablet 40 mg PO QAM Qty: 30 1RF hydralazine 10 mg Tablet 10 mg PO BID17 Qty: 60 1RF carvedilol 3.125 mg Tablet 3.125 mg PO BIDM Qty: 60 1RF Eliquis 2.5 mg Tablet 2.5 mg PO BID Qty: 60 1RF Continued aspirin [Adult Low Dose Aspirin] 81 mg tablet,delayed release (DR/EC) 81 mg PO DAILY allopurinol 100 mg tablet 100 mg PO DAILY atorvastatin 40 mg tablet 40 mg PO DAILY cholecalciferol (vitamin D3) [Vitamin D3] 25 mcg (1,000 unit) Capsule 25 mcg PO DAILY thiamine HCl (vitamin B1) 100 mg Tablet 100 mg PO DAILY cyanocobalamin (vitamin B-12) 500 mcg Tablet 500 mcg PO DAILY acetaminophen 325 mg Capsule 325 mg PO QID PRN (Reason: Pain) folic acid 0.8 mg Capsule 0.8 mg PO DAILY Shingrix (PF) 50 mcg/0.5 mL Suspension For Reconstitution 0.5 ml IM USEASDIRECTD Patient Comments: He say his last shot was around 6 months ago, putting it around May. Rx Instructions: Every 60 - 180 days Discontinued metoprolol succinate 25 mg tablet extended release 24 hr 12.5 mg PO DAILY furosemide 20 mg tablet 20 mg PO DAILY Discharge Orders: Discharge Order- CHF (Routine); Ordered 11/09/22 Ordered By: Manjit Faith/Other Patient Handouts: Heart Failure Meds, What Is Heart Failure, Heart Failure Flare Up Signs, Heart Failure: Tracking Your Weight, Managing Type 2 D iabetes, Coping with Heart Failure, Heart Failure Make Changes Diet, Heart Failure Assessment Admission Data Admit Date/Time: 11/06/22 06:54 Attending Provider: Manjit Gonzalez Admit Provider: Conner Lazo Primary Care Provider: Nick Edwards Other Providers: Jennifer Sultana ; Lio Richard ; Jermaine Calero ; Eh Chino ; Jose Antonio Melchor ; Nick Flores ; Randi Mendoza ; Rosalina Malhotra ; Jennifer Morse ; Deon Narayanan ; Papo Domínguez ; Conner Lazo
--- NOTE | 2022-11-09 12:36 | Cardiology Progress Note ---
Date of Service November 09, 2022 Assessment & Plan (1) Acute on chronic heart failure with preserved ejection fraction (HFpEF): Plan: - Patient previously admitted with heart failure decompensation May, -Although his blood pressure was elevated on arrival, his symptoms certainly sound consistent with volume overload and have since improved. -Renal function stable. Continue furosemide , 40 mg IV daily. (2) Prosthetic aortic valve stenosis: Plan: - This is his second hospitalization for congestive heart failure decompensation. -Recent echocardiogram studies 05/27/2022 ([facility]), 06/10/2022 ([facility]), and 11/06/22 ([facility]) all suggestive of preserved ejection fraction, severe prosthetic stenosis. -Outpatient follow-up in the valve clinic is tentatively scheduled for 02/25/2023,will request for this to be moved up. (3) Atrial fibrillation: Plan: - Patient with history of bradycardia. Atenolol discontinued in May, due to relative bradycardia then transitioned to metoprolol succinate 12.5 mg daily. Follow-up coordinate measuring machine programmer May, revealed predominant rhythm sinus rhythm at 66 bpm with first-degree AV block as well as episodes of acute block block and junctional rhythm. Presenting rhythm today is atrial fibrillation with controlled to relatively slow ventricular response. -Patient transitioned to carvedilol 3.125 mg twice daily on admission given findings of hypertension and he is tolerating this well thus far. -Patient's [id number] score = at leas 5 for age > 75 (2 points), hypertension, vascular disease in the form of coronary heart disease, and diabetes. -Transition from heparin to Eliquis 2.5 mg twice daily today. We will need to assess the affordability of this prior to discharge (4) Stage 3b chronic kidney disease (CKD): Plan: - Most recent outpatient chemistry panel 10/17/2022 included creatinine of 1.7, EGFR of 39 mL/min/m -Patient had CONCEPCION at the time of his hospital stay in May, with creatinine that peaked at 3.11 at that time. -Creatinine improved status post diuretic therapy as hospital stay from 1.61 on 11/06-1.43 on 11/07/2022 -We will diurese cautiously and monitor kidney function electrolytes (5) HTN (hypertension): Plan: - BP remains above goal despite having transition to carvedilol and administering IV furosemide. Need to be cautious not to decrease his blood pressure too much due to his underlying aortic stenosis. -His renal function is such that he is felt to be a poor candidate for the addition of an SHANNAN inhibitor or ARB. Will cautiously start hydralazine 5 mg 3 times daily. Plan 11/08/2022 previous interventions and treatments as above. Patient has responded briskly to IV diuretics. Blood pressure trending towards better control Atrial fibrillation rates controlled without elevation Recommendations: Discontinue IV furosemide, begin furosemide 40 mg p.o. daily Hydralazine 10 mg p.o. twice daily for additional hypertension control Eliquis 2.5 mg twice per day for anticoagulation BMP 1 week post discharge Patient desires discharge today no contraindications from cardiac standpoint if ambulatory without difficulty 11/09/2022 Continues to do well recommendations as above CHF discharge instruction discussed with patient and will be provided Admission and Anticipated Discharge Date Admission Date: November 06, 2022 Subjective Patient seen and examined, chart, medications, telemetry reviewed. Feels substantially improved. Rhythms remain atrial fibrillation with occasional slow heart rate. Peripheral edema resolved dyspnea improved patient with good oxygenation on room air Review of Systems Review of Systems: All systems reviewed & are unremarkable except as noted in Subjective Physical Exam Constitutional: WD/WN, vitals as above Eyes: PERRL, conjunctivae normal, anicteric sclerae ENMT: external ear and nose normal, oropharynx normal Neck: trachea midline, no thyromegaly Respiratory: normal respiratory effort, lungs clear to auscultation Cardiovascular: Rate/Rhythm: + irregularly irregular Heart Sounds: + murmur (1/6 systolic murmur) Gastrointestinal (Abdomen): normal bowel sounds, soft, nontender, no hepatosplenomegaly Neurologic: PERRL, EOMI, accommodation nl, no face palsy, no dysarthria Results & Data Vital Signs (Past 12 Hours) Vital Signs Temp Pulse Pulse Resp BP BP Pulse Ox 11/09/22 12:22 36.8 C 69 67 19 126/68 151/69 H 97 11/09/22 11:52 36.8 C 69 19 126/68 97 11/09/22 08:00 11/09/22 07:02 36.4 C L 67 18 154/75 H 100 11/09/22 03:35 36.2 C L 47 L 18 145/71 H 98 O2 Del Method 11/09/22 12:22 11/09/22 11:52 Room Air 11/09/22 08:00 Room Air 11/09/22 07:02 Room Air 11/09/22 03:35 Nasal CPAP Laboratory Results Laboratory Results - last 24 hr 11/08/22 11/08/22 11/09/22 16:17 20:18 05:46 WBC 6.36 RBC 4.15 L Hgb 12.6 L Hct 37.5 L MCV 90.4 MCH 30.4 MCHC 33.6 RDW Std Deviation 49.5 H RDW Coeff of Efe 15.0 H Plt Count 78 L MPV 11.5 Sodium Potassium Chloride Carbon Dioxide Anion Gap BUN Creatinine Est Cr Clr Drug Dosing Est GFR ( Amer) Est GFR (Non-Af Amer) BUN/Creatinine Ratio Glucose POC Glucose 118 H 110 H Calcium Magnesium 11/09/22 11/09/22 11/09/22 05:46 07:23 11:10 WBC RBC Hgb Hct MCV MCH MCHC RDW Std Deviation RDW Coeff of Efe Plt Count MPV Sodium 138 Potassium 4.3 Chloride 102 Carbon Dioxide 27 Anion Gap 9 BUN 52 H Creatinine 1.71 H Est Cr Clr Drug Dosing 38.6 Est GFR ( Amer) 41.7 Est GFR (Non-Af Amer) 36.0 BUN/Creatinine Ratio 30.4 H Glucose 107 H POC Glucose 115 H 126 H Calcium 8.8 Magnesium 1.7
== END 2022-11-09 13:14 | disposition home or self-care (01) | DRG 291 ==
LOC: ED 03:36 → EDINP 06:54 → 2E 07:50

== ENCOUNTER 2022-12-14 19:46 | Inpatient (IN) ==
[2022-12-14 20:41] LABS: Hematocrit (blood only) 18.7 % (42.0-52.0); Mean Corpuscular Hemoglobin 30.6 pg (25.0-34.0); Mean Corpuscular Hgb Conc 32.1 g/dL (32.0-36.0); Mean Corpuscular Volume 95.4 fL (80.0-100.0); Mean Platelet Volume 9.8 fL (9.4-12.4); Platelet Count 135 K/uL (130-400); RDW Coefficient of Variation 16.4 % (11.5-14.5); RDW Standard Deviation 56.3 fL (36.4-46.3); Red Blood Count 1.96 M/uL (4.70-6.10); White Blood Count 6.65 K/ul (4.8-10.8)
[2022-12-14 20:47] LABS: Albumin Globulin Ratio 1.1 (0.9-2); Albumin Level 3.5 gm/dl (3.4-5.0); BUN Creatinine Ratio 48.8 (10-20); Bilirubin,Total 0.5 mg/dl (0.2-1.0); Calcium 8.9 mg/dl (8.6-10.3); Creatinine Clr Calc Pharmacy 32.7 ml/min; Est GFR (African American) 33.9 ml/min; Est GFR (Non-African American) 29.2 ml/min; Globulin 3.1 gm/dl (2.5-4.0); Potassium 4.2 mmol/L (3.5-5.1); Total Protein 6.6 gm/dl (6.0-8.3)
[2022-12-14 20:54] LABS: Troponin I High Sensitivity 14.8 pg/ml (0-20)
[2022-12-14 20:55] LABS: Basophils # (auto) 0.04 K/uL (0-0.2); Basophils % (auto) 0.6 %; Eosinophils # (auto) 0.21 K/uL (0-0.50); Eosinophils % (auto) 3.2 %; Immature Granulocytes # (auto) 0.04 K/uL (0.01-0.20); Immature Granulocytes % (auto) 0.6 %; Lymphocytes # (auto) 1.63 K/uL (1.2-3.4); Lymphocytes % (auto) 24.5 %; Monocytes # (auto) 0.58 K/uL (0.11-0.59); Monocytes % (auto) 8.7 %; Neutrophils # (auto) 4.15 K/uL (1.40-6.50); Neutrophils % (auto) 62.4 %; Ovalocytes 1+; Polychromasia 1+
[2022-12-14 20:58] LABS: INR 1.1 (0.9-1.1); Partial Thromboplastin Time 26.9 Seconds (21.0-31.0); Prothrombin Time 12.3 Seconds (9.0-12.0)
[2022-12-14] MEDS ORDERED: PANTOprazole 80 MG in DEXTROSE 5% 100 ML IV STA (21:06)
[2022-12-14] MEDS ORDERED: FAMOTIDINE 20MG IV PUSH 20 MG/5 ML SYR IV STA (21:06)
[2022-12-14] MEDS ORDERED: PANTOprazole 80 MG in DEXTROSE 5% 100 ML IV ONE (21:06)
[2022-12-14] MEDS ORDERED: SODIUM CHLORIDE 0.9% 1000ML 500 ML IV ONE (21:06)
[2022-12-14] MEDS ORDERED: SODIUM CHLORIDE 0.9% 250 ML IV PRN (21:08)
--- NOTE | 2022-12-14 21:15 | Emergency Department Note ---
Impression & Plan SOB (shortness of breath), Anemia, Weakness, Acute GI bleeding ED Provider Note NAME: POPPY MENDOZA AGE: 82 SEX: M : 1940 ARRIVES VIA: Walk-In INFORMANT: [Patient][] ED PROVIDER(S): [Jarrett Machado MD] CHIEF COMPLAINT: Shortness of breath, weak HISTORY OF PRESENT ILLNESS: The patient is an 82-year-old male who states that for 5 days, he has felt short of breath and weak. He feels he might fall. No chest pain, no abdominal pain. He has noticed some black stool though. The patient is on Eliquis. He was placed on this recently for A-fib. He does have a bovine aortic valve. He has a history of heart failure. No history of previous GI bleeding. He has noticed some nosebleeds though since starting the Eliquis. The patient has not had cough or congestion. No fever. No nasal congestion. PMHx/PSHx: See Below SOCIAL HISTORY: See Below. PHYSICAL EXAM: GENERAL: Patient is in no acute distress. HEENT: No acute trauma, normocephalic atraumatic, mucous membranes moist, no na timur congestion. NECK: No stridor, no adenopathy, no meningismus, trachea is midline. LUNGS: A few scattered crackles are heard, no wheezing, no respiratory distress. HEART: 2/6 systolic murmur, irregular rhythm. Normal rate. ABDOMEN: Soft, nontender, bowel sounds positive, no peritonitis. EXTREMITIES: No cyanosis, full range of motion of all the joints without pain or difficulty, no signs for acute trauma. NEUROLOGIC: Oriented x 3, no acute motor or sensory deficits, no focal weakness. SKIN: No rash, no jaundice, no diaphoresis. Rectal: Dark stool, heme positive. DIFFERENTIAL DIAGNOSIS: Upper GI bleed, lower GI bleed, anemia, electrolyte imbalance, WI, dysrhythmia, pneumonia bronchitis, CHF, among others. EMERGENCY DEPARTMENT COURSE/PROCEDURES: Prior/Outside records reviewed: Recent discharge summary. ECG per my interpretation: Indication was weakness and shortness of breath. The ECG shows atrial fibrillation with a rate of 56. There is some nonspecific ST change. No ST elevation, no PVCs. The QTc is 401. Continuous Cardiac Monitoring per my interpretation: An order was placed for continuous cardiac monitoring. The monitor shows a rate of 67 with atrial fibri llation. Critical Care Note: I have personally spent 45 minutes of critical care time in the direct management of this patient. This includes bedside care, interpretation of diagnostic studies, and testing, discussion with consultants, patient, and family members, and other required patient management activities. This 45 minutes is in excess of all separately billable procedures. MEDICAL DECISION MAKING: There is no leukocytosis. The hemoglobin is quite low at 6. I did perform a rectal exam, stool was dark in color and heme positive. Platelet count was normal. No concerning coagulopathy by laboratory testing. Creatinine was elevated, this is baseline for the patient. BUN was higher than baseline consistent with upper GI bleeding. No concerning liver enzyme elevation. ECG showed atrial fibrillation, no ischemia. Cardiac enzyme testing x1 is not consistent with acute cardiac injury. The patient appeared to be in a euthyroid state. COVID test returned negative. Chest x-ray per my review did not show CHF, pneumonia or pneumothorax. On exam, the patient was not hypotensive, he was resting comfortably. Patient received a 500 cc saline bolus. He was given IV Protonix and IV Pepcid. He was ordered for 2 units of packed red blood cells to be transfused. The paperwork for transfusion was completed and signed. The patient understands the need for a hospital stay. He is suffering a GI bleed, likely an upper GI bleed. He is on Eliquis for anticoagulation. I spoke with the patient at length, I spoke with case management, the on-call hospitalist was consulted. DISPOSITION: The patient's presentation and findings warrant a hospital stay. Past Med/Surg History Medical History Chronic deep vein thrombosis (DVT) CKD (chronic kidney disease) stage 3, GFR 30-59 ml/min Diabetes HLD (hyperlipidemia) Hypoxemia SANDI on CPAP Psoriasis Recurrent spontaneous pneumothorax Sleep apnea with use of continuous positive airway pressure (CPAP) Steatohepatitis, non-alcoholic Vitamin D deficiency Surgical History History of aortic valve replacement History of colonoscopy History of hernia repair Rupture quadriceps tendon Family History Brother Heart disease CABG 2014 Father , 61 COPD (chronic obstructive pulmonary disease) Social History Smoking Status: Never smoker Hx Alcohol Use: Yes Alcohol type: beer and wine Hx Substance Use: No Preferred Language: Chinese 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: Effective Systems Qa Analyst Required: No marital status: Current Living Situation: Spouse Feels Safe at Home: Yes Assistive Devices: CPAP Allergies Allergies Allergy/AdvReac Type Severity Reaction Status Date / Time felodipine Allergy Intermediate HIVES Verified 12/14/22 21:44 Home Meds Home Medications Medication Instructions Recorded Confirmed aspirin 81 mg tablet,delayed 81 mg PO DAILY 05/19/19 12/14/22 release (Adult Low Dose Aspirin) allopurinol 100 mg tablet 100 mg PO DAILY 02/24/20 12/14/22 atorvastatin 40 mg tablet 40 mg PO QID 02/24/20 12/14/22 cholecalciferol (vitamin D3) 25 25 mcg PO DAILY 03/21/20 12/14/22 mcg (1,000 unit) capsule (Vitamin D3) cyanocobalamin (vitamin B-12) 500 500 mcg PO DAILY 03/21/20 12/14/22 mcg tablet thiamine HCl (vitamin B1) 100 mg 100 mg PO DAILY 03/21/20 12/14/22 tablet acetaminophen 325 mg capsule 325 mg PO QID PRN Pain 05/26/22 12/14/22 folic acid 0.8 mg capsule 0.8 mg PO DAILY 05/26/22 12/14/22 Previous Rx's Medication Instructions Recorded apixaban 2.5 mg tablet (Eliquis) 2.5 mg PO BID #60 tabs 11/09/22 carvedilol 3.125 mg tablet 3.125 mg PO BIDM #60 tabs 11/09/22 furosemide 40 mg tablet 40 mg PO QAM #30 tabs 11/09/22 hydralazine 10 mg tablet 10 mg PO BID17 #60 tabs 11/09/22 Results & Data (ED) Vital Signs Vital Signs - 24 hr 12/14/22 19:51 12/14/22 20:27 12/14/22 20:28 Temperature 36.8 C Temperature Source Temporal Artery Scan Pulse Rate 64 62 67 Respiratory Rate 18 16 23 Respiratory Effort / Characteristics Non-Labored Spontaneous Respiratory Depth Normal Blood Pressure 151/68 H 131/57 L Blood Pressure Mean 95 81 Pulse Oximetry 97 100 98 Oxygen Delivery Method Room Air Room Air Room Air Sepsis Recent Fever Within 48 Hours No Sepsis New/Unexplained Change in Mental Status No Sepsis Action Taken by Nursing No Action Required Home Medications Current Medication List: was personally reviewed by me Laboratory Data Attestation: I reviewed the patient's lab results. 12/14/22 20:04 12/14/22 20:04 Lab Results 12/14/22 12/14/22 12/14/22 Range/Units 20:04 20:04 20:04 WBC 6.65 (4.8-10.8) K/ul RBC 1.96 L (4.70-6.10) M/uL Hgb 6.0 L* (14.0-18.0) g/dl Hct 18.7 L* (42.0-52.0) % MCV 95.4 (80.0-100.0) fL MCH 30.6 (25.0-34.0) pg MCHC 32.1 (32.0-36.0) g/dL RDW Std Deviation 56.3 H (36.4-46.3) fL RDW Coeff of Efe 16.4 H (11.5-14.5) % Plt Count 135 (130-400) K/uL MPV 9.8 (9.4-12.4) fL Immature Gran % (Auto) 0.6 % Neut % (Auto) 62.4 % Lymph % (Auto) 24.5 % [place] % (Auto) 8.7 % Eos % (Auto) 3.2 % Baso % (Auto) 0.6 % Neut # (Auto) 4.15 (1.40-6.50) K/uL Lymph # (Auto) 1.63 (1.2-3.4) K/uL [place] # (Auto) 0.58 (0.11-0.59) K/uL Eos # (Auto) 0.21 (0-0.50) K/uL Baso # (Auto) 0.04 (0-0.2) K/uL Immature Gran # (Auto) 0.04 (0.01-0.20) K/uL Polychromasia 1+ Ovalocytes 1+ PT 12.3 H (9.0-12.0) Seconds INR 1.1 (0.9-1.1) APTT 26.9 (21.0-31.0) Seconds PTT Ratio 1.0 Sodium 136 (136-145) mmol/L Potassium 4.2 (3.5-5.1) mmol/L Chloride 103 (98-107) mmol/L Carbon Dioxide 24 (21-32) mmol/L Anion Gap 9 (3-11) BUN 99 H (6-23) mg/dl Creatinine 2.03 H (0.6-1.4) mg/dl Est Cr Clr Drug Dosing 32.7 ml/min Est GFR ( Amer) 33.9 ml/min Est GFR (Non-Af Amer) 29.2 ml/min BUN/Creatinine Ratio 48.8 H (10-20) Glucose 115 H (70-99(Fasting)) mg/dl Calcium 8.9 (8.6-10.3) mg/dl Magnesium (1.7-2.4) mg/dl Total Bilirubin 0.5 (0.2-1.0) mg/dl AST 15 (13-39) U/L ALT 10 (7-52) U/L Alkaline Phosphatase 99 (34-104) U/L Troponin I High Sens 14.8 (0-20) pg/ml Total Protein 6.6 (6.0-8.3) gm/dl Albumin 3.5 (3.4-5.0) gm/dl Globulin 3.1 (2.5-4.0) gm/dl Albumin/Globulin Ratio 1.1 (0.9-2) TSH (0.300-4.500) uIu/ml SARS-CoV-2, RNA, NAAT (NEGATIVE) Blood Type Blood Type Recheck Antibody Screen Crossmatch 12/14/22 12/14/22 12/14/22 Range/Units 20:05 21:17 21:17 WBC (4.8-10.8) K/ul RBC (4.70-6.10) M/uL Hgb (14.0-18.0) g/dl Hct (42.0-52.0) % MCV (80.0-100.0) fL MCH (25.0-34.0) pg MCHC (32.0-36.0) g/dL RDW Std Deviation (36.4-46.3) fL RDW Coeff of Efe (11.5-14.5) % Plt Count (130-400) K/uL MPV (9.4-12.4) fL Immature Gran % (Auto) % Neut % (Auto) % Lymph % (Auto) % [place] % (Auto) % Eos % (Auto) % Baso % (Auto) % Neut # (Auto) (1.40-6.50) K/uL Lymph # (Auto) (1.2-3.4) K/uL [place] # (Auto) (0.11-0.59) K/uL Eos # (Auto) (0-0.50) K/uL Baso # (Auto) (0-0.2) K/uL Immature Gran # (Auto) (0.01-0.20) K/uL Polychromasia Ovalocytes PT (9.0-12.0) Seconds INR (0.9-1.1) APTT (21.0-31.0) Seconds PTT Ratio Sodium (136-145) mmol/L Potassium (3.5-5.1) mmol/L Chloride (98-107) mmol/L Carbon Dioxide (21-32) mmol/L Anion Gap (3-11) BUN (6-23) mg/dl Creatinine (0.6-1.4) mg/dl Est Cr Clr Drug Dosing ml/min Est GFR ( Amer) ml/min Est GFR (Non-Af Amer) ml/min BUN/Creatinine Ratio (10-20) Glucose (70-99(Fasting)) mg/dl Calcium (8.6-10.3) mg/dl Magnesium 1.7 (1.7-2.4) mg/dl Total Bilirubin (0.2-1.0) mg/dl AST (13-39) U/L ALT (7-52) U/L Alkaline Phosphatase (34-104) U/L Troponin I High Sens (0-20) pg/ml Total Protein (6.0-8.3) gm/dl Albumin (3.4-5.0) gm/dl Globulin (2.5-4.0) gm/dl Albumin/Globulin Ratio (0.9-2) TSH 2.268 (0.300-4.500) uIu/ml SARS-CoV-2, RNA, NAAT NEGATIVE (NEGATIVE) Blood Type Blood Type Recheck Antibody Screen Crossmatch 12/14/22 12/14/22 Range/Units 21:17 21:49 WBC (4.8-10.8) K/ul RBC (4.70-6.10) M/uL Hgb (14.0-18.0) g/dl Hct (42.0-52.0) % MCV (80.0-100.0) fL MCH (25.0-34.0) pg MCHC (32.0-36.0) g/dL RDW Std Deviation (36.4-46.3) fL RDW Coeff of Efe (11.5-14.5) % Plt Count (130-400) K/uL MPV (9.4-12.4) fL Immature Gran % (Auto) % Neut % (Auto) % Lymph % (Auto) % [place] % (Auto) % Eos % (Auto) % Baso % (Auto) % Neut # (Auto) (1.40-6.50) K/uL Lymph # (Auto) (1.2-3.4) K/uL [place] # (Auto) (0.11-0.59) K/uL Eos # (Auto) (0-0.50) K/uL Baso # (Auto) (0-0.2) K/uL Immature Gran # (Auto) (0.01-0.20) K/uL Polychromasia Ovalocytes PT (9.0-12.0) Seconds INR (0.9-1.1) APTT (21.0-31.0) Seconds PTT Ratio Sodium (136-145) mmol/L Potassium (3.5-5.1) mmol/L Chloride (98-107) mmol/L Carbon Dioxide (21-32) mmol/L Anion Gap (3-11) BUN (6-23) mg/dl Creatinine (0.6-1.4) mg/dl Est Cr Clr Drug Dosing ml/min Est GFR ( Amer) ml/min Est GFR (Non-Af Amer) ml/min BUN/Creatinine Ratio (10-20) Glucose (70-99(Fasting)) mg/dl Calcium (8.6-10.3) mg/dl Magnesium (1.7-2.4) mg/dl Total Bilirubin (0.2-1.0) mg/dl AST (13-39) U/L ALT (7-52) U/L Alkaline Phosphatase (34-104) U/L Troponin I High Sens (0-20) pg/ml Total Protein (6.0-8.3) gm/dl Albumin (3.4-5.0) gm/dl Globulin (2.5-4.0) gm/dl Albumin/Globulin Ratio (0.9-2) TSH (0.300-4.500) uIu/ml SARS-CoV-2, RNA, NAAT (NEGATIVE) Blood Type A Positive Blood Type Recheck A Positive Antibody Screen NEGATIVE Crossmatch See Detail Administered Medications Pantoprazole Sodium 40 mg/ (Dextrose) 100 mls @ 20 mls/hr IV Q5H KETAN Stop: 01/13/23 21:29 Last Admin: 12/14/22 22:22 Dose: 8 mg/hr, 20 mls/hr Documented By: AB Discontinued Medications Pantoprazole Sodium 80 mg/ (Dextrose) 120 mls @ 400 mls/hr IV NOW ONE Stop: 12/14/22 21:23 Last Infusion: 12/14/22 22:23 Dose: 0 mls/hr Documented By: Admin: 12/14/22 21:52 Dose: 400 mls/hr Documented By: AB Famotidine (Pepcid 20mg Iv Push) 20 mg in 5 mls @ 2.5 mls/min IV NOW STA Stop: 12/14/22 21:07 Last Admin: 12/14/22 21:15 Dose: 2.5 mls/min Documented By: AB Sodium Chloride (Nss 1000ml) 500 mls @ 999 mls/hr IV .Q31M ONE Stop: 12/14/22 21:36 Last Infusion: 12/14/22 21:54 Dose: 0 mls/hr Documented By: Admin: 12/14/22 21:19 Dose: 999 mls/hr Documented By: AB Imaging Data My Impression: Chest x-ray: Per my review, there is no mediastinal widening, pneumonia or pneumothorax. Discharge Plan Visit Data Chief Complaint: Shortness of Breath/Dyspnea Stated Complaint: SOB, WEAKNESS, UNABLE TO WALK ED Provider: Jarrett Machado Discharge Problem: SOB (shortness of breath), Anemia, Weakness, Acute GI bleeding Patient Disposition: Admitted As Inpatient Condition: Serious Forms Stand Alone Forms: My [facility] Prescriptions Prescriptions: No Action aspirin [Adult Low Dose Aspirin] 81 mg tablet,delayed release (DR/EC) 81 mg PO DAILY allopurinol 100 mg tablet 100 mg PO DAILY atorvastatin 40 mg tablet 40 mg PO QID cholecalciferol (vitamin D3) [Vitamin D3] 25 mcg (1,000 unit) Capsule 25 mcg PO DAILY thiamine HCl (vitamin B1) 100 mg Tablet 100 mg PO DAILY cyanocobalamin (vitamin B-12) 500 mcg Tablet 500 mcg PO DAILY furosemide 40 mg Tablet 40 mg PO QAM Qty: 30 1RF hydralazine 10 mg Tablet 10 mg PO BID17 Qty: 60 1RF carvedilol 3.125 mg Tablet 3.125 mg PO BIDM Qty: 60 1RF Eliquis 2.5 mg Tablet 2.5 mg PO BID Qty: 60 1RF acetaminophen 325 mg Capsule 325 mg PO QID PRN (Reason: Pain) folic acid 0.8 mg Capsule 0.8 mg PO DAILY Referrals Referrals: Nick Edwards MD [Primary Care Provider] -
[2022-12-14] MEDS: PANTOprazole 40 MG in DEXTROSE 5% 100 ML IV SCH (22:22)
[2022-12-15] MEDS ORDERED: GLUCOSE 40% GEL 15 GM TUBE PO PRN (01:14)
[2022-12-15] MEDS ORDERED: DEXTROSE 50% 50 ML SYRINGE IV PRN (01:14)
[2022-12-15] MEDS ORDERED: GLUCOSE 10 TAB/TUBE PO PRN (01:14)
[2022-12-15] MEDS ORDERED: GLUCAGON FOR INJ 1 MG VIAL SQ PRN (01:14)
[2022-12-15] MEDS ORDERED: NITROGLYCERIN SL 0.4 MG/TAB TAB SL PRN (01:14)
[2022-12-15] MEDS ORDERED: CARBOHYDRATES FOR HYPOGLYCEMIA PO PRN (01:14)
[2022-12-15] MEDS ORDERED: ACETAMINOPHEN 325 MG TAB PO PRN (01:14)
[2022-12-15] MEDS: INSULIN ASPART PER UNIT CHARGE SC SCH ×6 (01:29→20:22)
[2022-12-15] MEDS: PANTOprazole 40 MG in DEXTROSE 5% 100 ML IV SCH ×5 (03:31→22:42)
--- NOTE | 2022-12-15 03:35 | History and Physical Report ---
DATE OF ADMISSION: 12/14/2022. CHIEF COMPLAINT: Shortness of breath, symptomatic anemia. HISTORY OF PRESENT ILLNESS: This is an 82-year-old male with past medical history significant for chronic diastolic CHF, EF of 60-65%, severe bioprosthetic aortic valve stenosis, history of paroxysmal atrial fibrillation, valvular heart disease, [id number] AR, mild MR, pulmonary hypertension, hypertension, hyperlipidemia, diabetes diet controlled; [place] cirrhosis, obstructive sleep apnea, CPAP, history of recurrent right pneumothorax, chronic kidney disease, baseline creatinine 1.7; chronic anemia, baseline hemoglobin around 11; chronic thrombocytopenia, skin cancer as per records, was recently in the hospital in the first week of November with shortness of breath and found to be acute on chronic heart failure with preserved ejection fraction, blood pressure medication was adjusted with stopping metoprolol and starting Coreg and also adding hydralazine, history of bradycardia, atenolol was changed to Toprol on previoust admission, Toprol was changed to Coreg last admit and also he was placed on Eliquis on last admission for a fib and was discharged home. The patient lives at home with his . The patient says he was doing okay.The other day, he mowed grass, and today he had some shoulder pain from mowing grass and also he was feeling short of breath and also he noticed black stools for the last 2 to 3 days. That is the reason he came to the hospital. His Hemoccult was positive in the ER and his hemoglobin was found to be 6, creatinine was 2 and the ER ordered 2 units of PRBC, which he is getting now. He is hemodynamically stable, alert and oriented. Denies any chest pain. He has some mild cough, no runny nose, no sore throat, no headache. Vision is okay. No earaches, no nausea, no abdominal pain. Normal bladder movements. ALLERGIES: TO FELODIPINE. PAST MEDICAL HISTORY: As mentioned above. PAST SURGICAL HISTORY: Colonoscopy, repair of incisional hernia, bypass with aortic valve replacement in 2013. MEDICATIONS: The patient is on Tylenol 325 mg p.o. q.i.d. p.r.n., allopurinol 100 mg p.o. daily, Eliquis 2.5 mg p.o. b.i.d., aspirin 81 mg p.o. daily, atorvastatin 40 mg p.o. daily, Coreg 3.125 mg p.o. b.i.d., vitamin D 25 mcg p.o. daily, vitamin B12 500 mcg p.o. daily, folic acid 0.8 mg p.o. daily, Lasix 40 mg p.o. daily, hydralazine 10 mg p.o. b.i.d., vitamin B1 100 mg p.o. daily. FAMILY HISTORY: Significant for brother has CABG, father has asthma, mother has brittle bones. SOCIAL HISTORY: , lives with . No smoking, few drinks a month. No drug use. REVIEW OF SYSTEMS: As per HPI. Rest of the review of systems is negative. PHYSICAL EXAMINATION: GENERAL: The patient is alert and oriented, not in acute distress. VITAL SIGNS: Temperature 37.4, pulse 67, respiratory rate 18, blood pressure 129/59, oxygen 98% on room air. HEENT: Pupils equal, round and reactive to light. Oral mucosa moist. NECK: No JVD or neck masses. CARDIOVASCULAR: S1 and S2 heard. Regular rate and rhythm. No murmur, no gallop. RESPIRATORY SYSTEM: Normal AP diameter. No accessory muscle use. No wheezing or crackles. ABDOMEN: Soft, bowel sounds present, nontender, no distention. CENTRAL NERVOUS SYSTEM: Alert and oriented. Speech is clear. No facial droop. Obeys simple commands. Moves extremities. EXTREMITIES: Bilateral pedal edema +1 present, no erythema seen. LABORATORY DATA: WBC 6.6, hemoglobin 6, hematocrit 18.7, platelets 135. PT 12.3, INR 1.1, APTT 26.9. Sodium 136, potassium 4.2, chloride 103, bicarbonate 24, BUN 99, creatinine 2.03, serum glucose 115, calcium 8.9, magnesium 1.7, total bilirubin 0.5, AST 15, ALT 10, alkaline phosphatase 99. Troponin I high sensitivity 14.8. TSH 2.2. IMAGING DATA: Chest x-ray, no acute findings. EKG: Atrial fibrillation, slow ventricular response at a rate of 56, no acute ST changes seen. ASSESSMENT AND PLAN: This is an 82-year-old male who presents with shortness of breath, found to have symptomatic anemia. 1. Symptomatic anemia with melena. Hemoccult positive. The patient is on aspirin and Eliquis, which will be held. ER ordered 2 units of PRBCs, which is given. We will follow hemodynamics. Monitor H and H q.6 hours. Monitor in the tele floor. GI consult, n.p.o.,PPI drip. gentle fluids. 2. History of atrial fibrillation. Rate controlled with Coreg, which will be given with holding parameters, holding Eliquis and aspirin. Monitor in tele floor. 3. Hypertension. Continue his Coreg with holding parameters. BP is soft. Currently, holding his hydralazine and diuretics. We will monitor his blood pressure closely. 4. Diabetes, diet controlled. We will place him on ISS while the patient is in the hospital. 5. Nonalcoholic steatohepatitis cirrhosis. Follows with GI. 6. Obstructive sleep apnea. On CPAP at bedtime. 7. Acute kidney injury on chronic kidney disease, stage III: Baseline creatinine around 1.7, presently creatinine of 2. Getting gentle fluids and blood transfusion. Holding his diuretics. We will monitor blood pressure. 8. Chronic diastolic congestive heart failure, valvular heart disease, severe prosthetic aortic valve stenosis. Also, the patient is currently getting gentle fluids and also PRBC transfusion. Holding Lasix for CONCEPCION. Closely monitor for volume overload and give IV Lasix as needed. 9. Severe prosthetic aortic valve stenosis. There is appointment with valve clinic on 02/22/2023. There is plan to move up the valve clinic appointment. We will consult cardiology while the patient is in the hospital. 10. History of chronic anemia because of the liver disease. Last admission was around 12. 11. Deep venous thrombosis prophylaxis: SCDs. DISPOSITION: Closely monitor in the tele floor. Level 1 full code. Job ID: [id number] MTDD
[2022-12-15] MEDS: SODIUM CHLORIDE 0.9% 1000ML 1,000 ML IV SCH ×2 (04:16→17:05)
[2022-12-15 06:25] LABS: Basophils # (auto) 0.02 K/uL (0-0.2); Basophils % (auto) 0.4 %; Eosinophils # (auto) 0.19 K/uL (0-0.50); Eosinophils % (auto) 3.5 %; Hemoglobin 7.5 g/dl (14.0-18.0); Immature Granulocytes # (auto) 0.03 K/uL (0.01-0.20); Immature Granulocytes % (auto) 0.6 %; Lymphocytes # (auto) 1.44 K/uL (1.2-3.4); Lymphocytes % (auto) 26.7 %; Mean Corpuscular Hemoglobin 29.9 pg (25.0-34.0); Mean Corpuscular Hgb Conc 32.6 g/dL (32.0-36.0); Mean Corpuscular Volume 91.6 fL (80.0-100.0); Mean Platelet Volume 9.9 fL (9.4-12.4); Monocytes # (auto) 0.61 K/uL (0.11-0.59); Monocytes % (auto) 11.3 %; Neutrophils % (auto) 57.5 %; Platelet Count 97 K/uL (130-400); RDW Coefficient of Variation 15.9 % (11.5-14.5); RDW Standard Deviation 52.2 fL (36.4-46.3); Red Blood Count 2.51 M/uL (4.70-6.10); White Blood Count 5.39 K/ul (4.8-10.8)
[2022-12-15 06:39] LABS: BUN Creatinine Ratio 48.5 (10-20); Calcium 8.3 mg/dl (8.6-10.3); Creatinine Clr Calc Pharmacy 31.1 ml/min; Est GFR (African American) 35.8 ml/min; Est GFR (Non-African American) 30.9 ml/min; Magnesium 1.7 mg/dl (1.7-2.4); Potassium 4.3 mmol/L (3.5-5.1)
[2022-12-15 06:46] LABS: Polychromasia 1+
[2022-12-15] MEDS ORDERED: FUROSEMIDE INJ 20 MG/2 ML VIAL IV ONE (07:19)
[2022-12-15] MEDS ORDERED: SODIUM CHLORIDE 0.9% 250 ML IV PRN (07:19)
--- NOTE | 2022-12-15 07:40 | XRay Report ---
XR chest 1V not portable CLINICAL HISTORY: SOB TECHNIQUE: Single frontal radiograph of the chest was obtained. Comparison: Comparison is made to chest radiograph 11/06/2022 FINDINGS: Median sternotomy wires are unchanged. Cardiomegaly is noted. The aortic arch is calcified. The lungs are clear. There are trace bilateral pleural effusions. IMPRESSION: Trace bilateral pleural effusions are seen, the right effusion is decreased from prior exam. ACT 112: Negative or not required by law. Electronically signed by: Ludwig Vaz M.D. 12/15/2022 7:39 AM
[2022-12-15] MEDS: carvediloL 3.125 MG TAB PO SCH ×2 (08:10→17:07)
[2022-12-15] MEDS: allopurinoL 100 MG TAB PO SCH (08:10)
--- NOTE | 2022-12-15 08:56 | Cardiology Consultation ---
Date of Consultation December 15, 2022 Assessment & Plan (1) Acute GI bleeding: (2) Prosthetic aortic valve stenosis: (3) Atrial fibrillation with controlled ventricular rate: Plan Patient admitted for worsening SOB, diagnosed with GI bleed, hbg of 6.0. Eliquis and ASA on hold. Currently receiving 2nd unit of PRBC's. monitor H&H. would give Lasix 20 mg IV x1 dose after each unit to maintain volume status. Currently appears euvolemic. EGD planned for tomorrow. He is considered high risk for procedures given his severe bioprosthetic aortic stenosis. However in this setting benefit of diagnosis/evaluation/treatment outweighs the current risk. Procedure is necessary. He is euvolemic and optimized from cardiac standpoint. continue carvedilol for rate control of atrial fib. He does have high [id number] score = at least 6-7 for age > 75 (2 points), hypertension, vascular disease, and possible history of TIA/CVA? He follows with valve clinic for future intervention of his AVR bioprosthesis. May also need to consider watchman device given GI bleed on Eliquis. Case discussed with Dr. Richard I spent a total of 60 minutes on the date of service in preparation, delivery, and documentation of the care provided to this patient, excluding any time spent in the performance of separately billed services. Randi Mendoza PA-C Department of Cardiology, [facility] This chart was completed in part utilizing Speech Voice Recognition Software. Grammatical errors, random word insertions, pronoun errors, and incomplete sentences are an occasional consequence of this system due to software limitations, ambient noise, and hardware issues. Any formal questions or concerns about the content, text, or information contained within the body of this dictation should be directly addressed to the provider for clarification. Supervising Physician Co-Signing Physician Notes Supervising Physician Attestation: I have personally performed a history and physical examination on the patient. I agree with the physician records management assistant's findings and plan as documented with the following additions. Subjective: Patient feeling well having received transfusion packed red blood cells x3 minutes. Telemetry reveals rate controlled atrial fibrillation in the 50s. Respiratory status is stable. Exam: Pulmonary: Lungs clear to auscultation bilaterally Cardiovascular: Irregular rhythm, bradycardic, 2/6 systolic murmur, no edema Data: EKG performed 12/14/2022 and interpret independently: Atrial fibrillation at 56 bpm. No significant repolarization changes. Transthoracic echocardiogram performed 12/07/2022 revealed LVEF 60-65%, findings consistent with borderline severe prosthetic stenosis Hemoglobin had been 12.6 at time of last hospital stay 11/09/2022, was down to 6 g/dL on 12/14/2022, and improved to 9.3 today at 12:53 PM status post 3 units of packed red blood cells Assessment and Plan: -Acute blood loss anemia, Eliquis had recently been started for stroke prophylaxis -Prosthetic aortic valve stenosis-compensated from heart failure standpoint --Agree with holding aspirin, Eliquis. Transfusion as necessary. Patient stable for EGD as planned for tomorrow. Lio Richard, History of Present Illness Reason for Consultation: SOB; GI bleed; Bioprosthetic aortic stenosis Requesting Physician: Dr. Solares Attending Physician: Dr. Richard History of Present Illness Mr Davidson is an 82-year-old male who is seen in cardiology consultation per the request of Dr. Solares for the evaluation of shortness of breath. He is known to [facility], Dr. Calero/Aleisha, as well as [facility] valve team. History includes: 1. Aortic valve disease, severe calcific aortic valve stenosis status post May 2014 aortic valve replacement with a [address] [employer] Trifecta bioprosthesis. Now with severe bioprosthetic . Following with valve team 2. Cardiac catheterization 03/14/2014 without obstructive disease on coronary angiography. 3. Obstructive sleep apnea on CPAP supplementation. 4. Type II diabetes mellitus 5. Hypertension. 6. Hyperlipidemia. 7. Stage IIIb chronic renal insufficiency. 8. Recurrent right pneumothorax, spontaneous 9. 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 Gout 11. Diverticulosis 12. Vitamin D deficiency 13. Bilateral quad rupture and repair x 2. 14. Left incisional hernia repair. 15. Status post laser vaporization of the prostate in 05/2007. 16. Diagnosis of Atrial fibrillation with controlled rate in November 2022. Started on anticoagulation therapy with Eliquis In November 2022, patient was admitted to [facility] with worsening SOB. Treated for acute HFpEF and developed atrial fib with controlled rates. Started on low dose Eliquis 2.5 mg BID. Patient was doing well until about 3 days ago when he developed change in bowel habits with melena. He began to experience worsening SOB with minimal activity and came to ER. Hbg on arrival was 6.0. He denies recent worsening abdomianl bloating, LE edema. No sudden weight gain. No chest pain. No cough, fever, chills. He has been taking all meds as prescribed. At time of consult, patient was resting in bed. Currently receiving 2nd unit PRBC's. He reports already noting improvement in his SOB since admission. Denies acute complaints. Eliquis and ASA placed on hold on admission. Allergies Allergy/AdvReac Type Severity Reaction Status Date / Time felodipine Allergy Intermediate HIVES Verified 12/14/22 21:44 Home Medications Medication Instructions Recorded Confirmed Type aspirin 81 mg tablet,delayed 81 mg PO DAILY 05/19/19 12/14/22 History release (Adult Low Dose Aspirin) allopurinol 100 mg tablet 100 mg PO DAILY 02/24/20 12/14/22 History atorvastatin 40 mg tablet 40 mg PO QID 02/24/20 12/14/22 History cholecalciferol (vitamin D3) 25 25 mcg PO DAILY 03/21/20 12/14/22 History mcg (1,000 unit) capsule (Vitamin D3) cyanocobalamin (vitamin B-12) 500 500 mcg PO DAILY 03/21/20 12/14/22 History mcg tablet thiamine HCl (vitamin B1) 100 mg 100 mg PO DAILY 03/21/20 12/14/22 History tablet acetaminophen 325 mg capsule 325 mg PO QID PRN Pain 05/26/22 12/14/22 History folic acid 0.8 mg capsule 0.8 mg PO DAILY 05/26/22 12/14/22 History apixaban 2.5 mg tablet (Eliquis) 2.5 mg PO BID #60 tabs 11/09/22 12/14/22 Rx carvedilol 3.125 mg tablet 3.125 mg PO BIDM #60 tabs 11/09/22 12/14/22 Rx furosemide 40 mg tablet 40 mg PO QAM #30 tabs 11/09/22 12/14/22 Rx hydralazine 10 mg tablet 10 mg PO BID17 #60 tabs 11/09/22 12/14/22 Rx Patient History Medical History Chronic deep vein thrombosis (DVT) CKD (chronic kidney disease) stage 3, GFR 30-59 ml/min Diabetes HLD (hyperlipidemia) Hypoxemia SANDI on CPAP Psoriasis Recurrent spontaneous pneumothorax Sleep apnea with use of continuous positive airway pressure (CPAP) Steatohepatitis, non-alcoholic Vitamin D deficiency Surgical History History of aortic valve replacement History of colonoscopy History of hernia repair Rupture quadriceps tendon Family History Brother Heart disease CABG 2014 Father , 61 COPD (chronic obstructive pulmonary disease) Social History Smoking Status: Never smoker Do You Dip or Chew Tobacco: No; Hx Alcohol Use: Yes Alcohol type: beer and wine Hx Substance Use: No Preferred Language: Libyan 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: Effective [employer]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 Otherwise clear ) Cardiovascular: Rate/Rhythm: + irregularly irregular Heart Sounds: + murmur (II/ systolic murmur LSB with radiation to neck ) Vessels: no JVD Extremities: + edema (trace ankle and pretibial edema ) Gastrointestinal (Abdomen): normal bowel sounds, soft, nontender, no hepatosplenomegaly Neurologic: PERRL, EOMI, accommodation nl, no face palsy, no dysarthria Results & Data Vital Signs (Past 12 Hours) Vital Signs Temp Pulse Pulse Resp BP BP Pulse Ox 12/15/22 08:48 12/15/22 08:43 36.6 C 65 18 161/69 H 100 12/15/22 07:40 36.6 C 68 18 147/75 H 100 12/15/22 07:26 57 L 12/15/22 03:47 37.2 C 59 L 17 117/43 L 12/15/22 03:46 37.2 C 59 L 17 117/43 L 98 12/15/22 02:47 36.5 C 57 L 16 104/50 L 100 12/15/22 02:17 36.7 C 62 17 107/41 L 100 12/15/22 01:30 12/15/22 01:18 70 12/15/22 04:11 36.3 C L 62 16 157/70 H 97 12/15/22 02:02 36.7 C 63 16 121/67 98 12/15/22 01:46 36.4 C L 65 16 152/65 H 99 12/15/22 01:43 36.4 C L 65 16 152/65 H 99 12/15/22 01:40 36.4 C L 65 16 152/65 H 97 12/15/22 01:18 36.4 C L 72 16 118/46 L 99 12/15/22 00:35 65 18 122/63 98 12/14/22 21:30 72 12/14/22 23:23 98 12/15/22 00:45 37.4 C 66 18 122/65 97 12/15/22 00:02 37.5 C 67 18 130/65 97 12/14/22 23:32 37.4 C 67 18 129/59 L 98 12/14/22 23:17 37.5 C 67 18 132/48 L 98 12/14/22 23:00 37.3 C 66 20 106/74 97 O2 Del Method O2 Flow Rate 12/15/22 08:48 Room Air 12/15/22 08:43 12/15/22 07:40 Room Air 12/15/22 07:26 12/15/22 03:47 12/15/22 03:46 CPAP 12/15/22 02:47 12/15/22 02:17 12/15/22 01:30 Room Air 12/15/22 01:18 12/15/22 04:11 12/15/22 02:02 12/15/22 01:46 12/15/22 01:43 12/15/22 01:40 12/15/22 01:18 Room Air 12/15/22 00:35 Room Air 12/14/22 21:30 12/14/22 23:23 Room Air 0 12/15/22 00:45 12/15/22 00:02 12/14/22 23:32 12/14/22 23:17 12/14/22 23:00 Laboratory Results Cardiac Enzymes 12/14/22 Range/Units 20:04 AST 15 (13-39) U/L Troponin I High Sens 14.8 (0-20) pg/ml Coagulation 12/14/22 Range/Units 20:04 PT 12.3 H (9.0-12.0) Seconds APTT 26.9 (21.0-31.0) Seconds CBC 12/14/22 12/15/22 Range/Units 20:04 06:04 WBC 6.65 5.39 (4.8-10.8) K/ul RBC 1.96 L 2.51 L (4.70-6.10) M/uL Hgb 6.0 L* 7.5 L (14.0-18.0) g/dl Hct 18.7 L* 23.0 L (42.0-52.0) % Plt Count 135 97 L (130-400) K/uL Neut # (Auto) 4.15 3.10 (1.40-6.50) K/uL Lymph # (Auto) 1.63 1.44 (1.2-3.4) K/uL Alpine # (Auto) 0.58 0.61 H (0.11-0.59) K/uL Eos # (Auto) 0.21 0.19 (0-0.50) K/uL Baso # (Auto) 0.04 0.02 (0-0.2) K/uL Comprehensive Metabolic Panel 12/14/22 12/15/22 Range/Units 20:04 06:04 Sodium 136 137 (136-145) mmol/L Potassium 4.2 4.3 (3.5-5.1) mmol/L Chloride 103 107 (98-107) mmol/L Carbon Dioxide 24 24 (21-32) mmol/L BUN 99 H 94 H (6-23) mg/dl Creatinine 2.03 H 1.94 H (0.6-1.4) mg/dl Glucose 115 H 137 H (70-99(Fasting)) mg/dl Calcium 8.9 8.3 L (8.6-10.3) mg/dl AST 15 (13-39) U/L ALT 10 (7-52) U/L Alkaline Phosphatase 99 (34-104) U/L Total Protein 6.6 (6.0-8.3) gm/dl Albumin 3.5 (3.4-5.0) gm/dl Intake and Output 12/14/22 12/15/22 12/15/22 22:59 06:59 14:59 Intake Total 620 / 1340 720 / 1340 93 / 93 Balance 620 / 1340 720 / 1340 93 / 93 Intake: IV 620 / 720 100 / 720 93 / 93 PANTOprazole 40 mg In Dextrose 100 / 100 93 / 93 5% 100 ml @ 8 MG/HR 20 mls/hr IV Q5H KETAN Rx#:[id number] PANTOprazole 80 mg In Dextrose 120 / 120 5% 100 ml @ 400 mls/hr IV NOW ONE Rx#:[id number] Sodium Chloride 0.9% 1000ML 500 500 / 500 ml @ 999 mls/hr IV .Q31M ONE Rx#:[id number] Intake (Blood Product) Amt 620 / 620 0 / 0 Packed Cells, Leukoreduced 310 / 310 Unit [id number] Packed Cells, Leukoreduced 0 / 0 Unit [id number] Packed Cells, Leukoreduced 310 / 310 Unit [id number] Other: # Unmeasured Voids 2 Weight 97.1 kg 93.1 kg Weight Measurement Method Built in Bedscale Built in [facility] Diagnostic Findings Telemetry reviewed: Atrial fibrillation with controlled rates. Occ PVC EKG on arrival: Atrial fibrillation with controlled rate. no acute ST/T wave changes Chest xray on admission: IMPRESSION: Trace bilateral pleural effusions are seen, the right effusion is decreased from prior exam. echo report reviewed from last admission, November 2022: Severe concentric LVH Normal wall motion with EF 60-65% There is a bioprosthetic aortic valve with mild to moderate AI. There is borderline severe prosthetic aortic valve stenosis. Peak aortic valve velocity at 3.7 m/s with mean gradient of 28 mmHg Severe mitral annular calcification. Moderate focal calcification of the mitral valve leaflets. Mild TR. Severe pulmonary hypertension is present. Compared to the report in May 2022, ongoing severe prosthetic aortic stenosis is present. There is an interval increase in the pulmonary artery systolic pressure from the upper 20s to 69 mmHg. This could perhaps be related to technique on the present study or may reflect the patient's acutely volume overloaded state. Medications Administered Current Inpatient Medications Acetaminophen (Acetaminophen 325 Mg Tab) 650 mg PO Q4H PRN PRN Reason: Pain or Fever Stop: 01/14/23 01:13 Allopurinol (Allopurinol 100 Mg Tab) 100 mg PO DAILY [facility] Stop: 01/14/23 08:59 Last Admin: 12/15/22 08:10 Dose: 100 mg Carvedilol (Carvedilol 3.125 Mg Tab) 3.125 mg PO BIDM KETAN Stop: 01/14/23 07:59 Last Admin: 12/15/22 08:10 Dose: 3.125 mg Dextrose (Dextrose 50% 50 Ml Syringe) 25 - 50 ml IV UD PRN; Protocol PRN Reason: Hypoglycemia Protocol Stop: 01/14/23 01:13 Glucagon (Glucagon For Inj 1 Mg Vial) 1 mg SQ UD PRN; Protocol PRN Reason: Hypoglycemia Protocol Stop: 01/14/23 01:13 Glucose (Glucose 10 Tab/Tube) 4 - 8 tab PO UD PRN; Protocol PRN Reason: Hypoglycemia Treatment Stop: 01/14/23 01:13 Glucose (Glucose 40% Gel 15 Gm Tube) 15 - 30 gm PO UD PRN; Protocol PRN Reason: Hypoglycemia Protocol Stop: 01/14/23 01:13 Pantoprazole Sodium 40 mg/ (Dextrose) 100 mls @ 20 mls/hr IV Q5H [facility] Stop: 01/13/23 21:29 Last Admin: 12/15/22 08:10 Dose: 8 mg/hr, 20 mls/hr Sodium Chloride (Nss 1000ml) 1,000 mls @ 80 mls/hr IV .[id number] [facility] Stop: 01/14/23 01:13 Last Admin: 12/15/22 04:16 Dose: 80 mls/hr Sodium Chloride (Nss) 250 mls @ 15 mls/hr IV .[id number] PRN PRN Reason: For Transfusion Duration Stop: 12/15/22 17:19 Insulin Aspart (Insulin Aspart Per Unit Charge) 0 units SC Q6 [facility] Stop: 01/14/23 01:13 Last Admin: 12/15/22 05:56 Dose: Not Given Miscellaneous (Carbohydrates For Hypoglycemia ) 15 - 30 gm PO UD PRN PRN Reason: Hypoglycemia Protocol Stop: 01/14/23 01:13 Nitroglycerin (Nitroglycerin Sl 0.4 Mg/Tab Tab) 0.4 mg SL Q5M PRN PRN Reason: Chest Pain Stop: 01/14/23 01:13
--- NOTE | 2022-12-15 10:29 | Gastrointestinal Consultation ---
Date of Consultation December 15, 2022 Assessment & Plan (1) Acute dyspnea: (2) Anemia: Plan 82 year old male with history of CAD, cardiac catheterization, T2DM, HTN, dyslipidemia, CKD, afib, aortic valve disease w/ severe bioprosthetic admitted with dark stools. Can continue clears today NPO after midnight EGD in the AM Trend H&H Transfuse PRN Monitor and document stools Hold AC if able No NSAIDs IV PPI bolus/drip Thank you for allowing us to participate in the care of this patient. Please call with any acute changes, questions or concerns. Please see addendum below with additional recommendation from my supervising physician. Supervising Physician Co-Signing Physician Notes Attending attestation I have seen, examined this patient, and agree with the findings and above by our mid-level provider ANKUR May, with the following additions: Adm with several days of melena without hemodynamic compromise No BM since yesterday Walking in room without assistance Ok for clears today NPO after MN Hold Eliquis EGD tomorrow History of Present Illness Reason for Consultation: melena Requesting Physician: Carlos Attending Physician: Manjit Gonzalez MD History of Present Illness 82 year old male with history of CAD, cardiac catheterization, T2DM, HTN, dyslipidemia, CKD, afib, aortic valve disease w/ severe bioprosthetic a dmitted with dark stools. Pt was seen and evaluated, chart reviewed. Notes about a 4/5 day history of SOB and change in bowel movements, black stools. No BRB. No nausea/vomiting. No fever, chills, CP, SOB. 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 Allergies Allergy/AdvReac Type Severity Reaction Status Date / Time felodipine Allergy Intermediate HIVES Verified 12/14/22 21:44 Home Medications Medication Instructions Recorded Confirmed Type aspirin 81 mg tablet,delayed 81 mg PO DAILY 05/19/19 12/14/22 History release (Adult Low Dose Aspirin) allopurinol 100 mg tablet 100 mg PO DAILY 02/24/20 12/14/22 History atorvastatin 40 mg tablet 40 mg PO QID 02/24/20 12/14/22 History cholecalciferol (vitamin D3) 25 25 mcg PO DAILY 03/21/20 12/14/22 History mcg (1,000 unit) capsule (Vitamin D3) cyanocobalamin (vitamin B-12) 500 500 mcg PO DAILY 03/21/20 12/14/22 History mcg tablet thiamine HCl (vitamin B1) 100 mg 100 mg PO DAILY 03/21/20 12/14/22 History tablet acetaminophen 325 mg capsule 325 mg PO QID PRN Pain 05/26/22 12/14/22 History folic acid 0.8 mg capsule 0.8 mg PO DAILY 05/26/22 12/14/22 History apixaban 2.5 mg tablet (Eliquis) 2.5 mg PO BID #60 tabs 11/09/22 12/14/22 Rx carvedilol 3.125 mg tablet 3.125 mg PO BIDM #60 tabs 11/09/22 12/14/22 Rx furosemide 40 mg tablet 40 mg PO QAM #30 tabs 11/09/22 12/14/22 Rx hydralazine 10 mg tablet 10 mg PO BID17 #60 tabs 11/09/22 12/14/22 Rx Patient History Medical History Chronic deep vein thrombosis (DVT) CKD (chronic kidney disease) stage 3, GFR 30-59 ml/min Diabetes HLD (hyperlipidemia) Hypoxemia SANDI on CPAP Psoriasis Recurrent spontaneous pneumothorax Sleep apnea with use of continuous positive airway pressure (CPAP) Steatohepatitis, non-alcoholic Vitamin D deficiency Surgical History History of aortic valve replacement History of colonoscopy History of hernia repair Rupture quadriceps tendon Family History Brother Heart disease CABG 2014 Father , 61 COPD (chronic obstructive pulmonary disease) Social History Smoking Status: Never smoker Do You Dip or Chew Tobacco: No; Hx Alcohol Use: Yes Alcohol type: beer and wine Hx Substance Use: No Preferred Language: Monegasque 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: 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 Beliefs That Will Affect Care: None marital status: Current Living Situation: Spouse Feels Safe at Home: Yes Safety Concerns: Feels Safe At This Time Assistive Devices: CPAP Review of Systems Review of Systems: All systems reviewed & are unremarkable except as noted in HPI & below Physical Exam Constitutional: WD/WN, vitals as above Respiratory: normal respiratory effort, lungs clear to auscultation Cardiovascular: Rate/Rhythm: regular rate and regular rhythm Gastrointestinal (Abdomen): normal bowel sounds, soft, nontender, no hepatosplenomegaly Skin: no rashes, warm and dry Results & Data Vital Signs (Past 12 Hours) Vital Signs Temp Pulse Pulse Resp BP BP Pulse Ox 12/15/22 09:16 62 18 140/57 L 99 12/15/22 09:01 36.7 C 56 L 18 132/54 L 99 12/15/22 08:48 12/15/22 08:43 36.6 C 65 18 161/69 H 100 12/15/22 07:40 36.6 C 68 18 147/75 H 100 12/15/22 07:26 57 L 12/15/22 03:47 37.2 C 59 L 17 117/43 L 12/15/22 03:46 37.2 C 59 L 17 117/43 L 98 12/15/22 02:47 36.5 C 57 L 16 104/50 L 100 12/15/22 02:17 36.7 C 62 17 107/41 L 100 12/15/22 01:30 12/15/22 01:18 70 12/15/22 04:11 36.3 C L 62 16 157/70 H 97 12/15/22 02:02 36.7 C 63 16 121/67 98 12/15/22 01:46 36.4 C L 65 16 152/65 H 99 12/15/22 01:43 36.4 C L 65 16 152/65 H 99 12/15/22 01:40 36.4 C L 65 16 152/65 H 97 12/15/22 01:18 36.4 C L 72 16 118/46 L 99 12/15/22 00:35 65 18 122/63 98 12/14/22 23:23 98 12/15/22 00:45 37.4 C 66 18 122/65 97 12/15/22 00:02 37.5 C 67 18 130/65 97 12/14/22 23:32 37.4 C 67 18 129/59 L 98 12/14/22 23:17 37.5 C 67 18 132/48 L 98 12/14/22 23:00 37.3 C 66 20 106/74 97 O2 Del Method O2 Flow Rate 12/15/22 09:16 12/15/22 09:01 12/15/22 08:48 Room Air 12/15/22 08:43 12/15/22 07:40 Room Air 12/15/22 07:26 12/15/22 03:47 12/15/22 03:46 CPAP 12/15/22 02:47 12/15/22 02:17 12/15/22 01:30 Room Air 12/15/22 01:18 12/15/22 04:11 12/15/22 02:02 12/15/22 01:46 12/15/22 01:43 12/15/22 01:40 12/15/22 01:18 Room Air 12/15/22 00:35 Room Air 12/14/22 23:23 Room Air 0 12/15/22 00:45 12/15/22 00:02 12/14/22 23:32 12/14/22 23:17 12/14/22 23:00 (2) Anemia Anemia type: unspecified type Qualified Code(s): D64.9 - Anemia, unspecified
[2022-12-15] MEDS ORDERED: Nursing to Pharmacy Communication SCH (12:00)
--- NOTE | 2022-12-15 13:12 | Hospitalist Progress Note ---
Date of Service December 15, 2022 Assessment & Plan (1) Acute GI bleeding: Plan: Patient is an 82 yr male who presents with shortness of breath, found to have symptomatic anemia. Symptomatic Anemia Melena In setting of Aspirin, Eliquis use S/P 3 units PRBCs +FOBT in ED Aspirin, Eliquis held Continue Protonix drip Monitor H&H and transfuse as needed Appreciate GI input Plan for EGD tomorrow Atrial fibrillation Continue Coreg with holding parameters Eliquis on hold due to GI bleed Appreciate cardiology input Hypertension Continue Coreg with holding parameters Hold Hydralazine Monitor BP DM II Last HbA1C: 6.0 Continue ISS while hospitalized Monitor BGs CKD IIIb Baseline Cr: ~ 1.8 Monitor renal function Avoid nephrotoxic agents as able Nonalcoholic steatohepatitis cirrhosis Follows with GI as outpatient Obstructive sleep apnea Continue CPAP HS Chronic diastolic congestive heart failure valvular heart disease severe prosthetic aortic valve stenosis Resume home diuretics as able Monitor volume status Patient has valve clinic appointment on February 22, 2023 Anemia of Chronic disease monitor CBC DVT Px: SCDs. for now Code Status Full Code Admission and Anticipated Discharge Date Admission Date: December 14, 2022 Subjective Patient is seen and examined at bedside States having no melena since hospitalization Epistaxis resolved as well Denies any chest pain, dyspnea, dizziness, nausea, abdominal pain Plan for EGD tomorrow No other complaints Review of Systems Review of Systems: All systems reviewed & are unremarkable except as noted in Subjective Physical Exam Physical Exam: Physical Exam: Vitals signs as noted above General Appearance:Moderately built and nourished, no apparent distress Head: normocephalic, Atraumatic Eyes: normal inspection, EOMI Neck: supple, Trachea midline Respiratory/Chest: Normal breath sounds, basal rales, No accessory muscle use Cardiovascular: Irregularly irregular, +murmur, Bradycardia Abdomen/GI:Soft, Non tender, Protuberant, Bowel sounds present Extremities/Musculoskeletal:normal inspection, 1+edema Neurologic/Psych:AAOX3, grossly no focal neurological deficits Skin: normal color, warm Results & Data Results & Data Vital Signs (Past 12 Hours) Vital Signs Temp Pulse Pulse Resp BP BP Pulse Ox 12/15/22 12:06 52 L 18 133/56 L 96 12/15/22 11:46 60 16 142/56 H 95 12/15/22 10:46 49 L 20 119/62 99 12/15/22 09:46 60 18 154/57 H 97 12/15/22 09:16 62 18 140/57 L 99 12/15/22 09:01 36.7 C 56 L 18 132/54 L 99 12/15/22 08:48 12/15/22 08:43 36.6 C 65 18 161/69 H 100 12/15/22 07:40 36.6 C 68 18 147/75 H 100 12/15/22 07:26 57 L 12/15/22 03:47 37.2 C 59 L 17 117/43 L 12/15/22 03:46 37.2 C 59 L 17 117/43 L 98 12/15/22 02:47 36.5 C 57 L 16 104/50 L 100 12/15/22 02:17 36.7 C 62 17 107/41 L 100 12/15/22 01:30 12/15/22 01:18 70 12/15/22 04:11 36.3 C L 62 16 157/70 H 97 12/15/22 02:02 36.7 C 63 16 121/67 98 12/15/22 01:46 36.4 C L 65 16 152/65 H 99 12/15/22 01:43 36.4 C L 65 16 152/65 H 99 12/15/22 01:40 36.4 C L 65 16 152/65 H 97 12/15/22 01:18 36.4 C L 72 16 118/46 L 99 O2 Del Method 12/15/22 12:06 12/15/22 11:46 12/15/22 10:46 12/15/22 09:46 12/15/22 09:16 12/15/22 09:01 12/15/22 08:48 Room Air 12/15/22 08:43 12/15/22 07:40 Room Air 12/15/22 07:26 12/15/22 03:47 12/15/22 03:46 CPAP 12/15/22 02:47 12/15/22 02:17 12/15/22 01:30 Room Air 12/15/22 01:18 12/15/22 04:11 12/15/22 02:02 12/15/22 01:46 12/15/22 01:43 12/15/22 01:40 12/15/22 01:18 Room Air Laboratory Results Short CBC 12/14/22 12/15/22 Range/Units 20:04 06:04 WBC 6.65 5.39 (4.8-10.8) K/ul Hgb 6.0 L* 7.5 L (14.0-18.0) g/dl Hct 18.7 L* 23.0 L (42.0-52.0) % Plt Count 135 97 L (130-400) K/uL BMP 12/14/22 12/15/22 20:04 06:04 Sodium 136 137 Potassium 4.2 4.3 Chloride 103 107 Carbon Dioxide 24 24 BUN 99 H 94 H Creatinine 2.03 H 1.94 H Glucose 115 H 137 H Calcium 8.9 8.3 L Liver Function 12/14/22 Range/Units 20:04 Total Bilirubin 0.5 (0.2-1.0) mg/dl AST 15 (13-39) U/L ALT 10 (7-52) U/L Alkaline Phosphatase 99 (34-104) U/L Albumin 3.5 (3.4-5.0) gm/dl
[2022-12-15 13:41] LABS: Hematocrit (blood only) 27.7 % (42.0-52.0); Hemoglobin 9.3 g/dl (14.0-18.0)
[2022-12-15] MEDS ORDERED: INSULIN ASPART PER UNIT CHARGE SC SCH (16:30)
--- NOTE | 2022-12-15 16:38 | Electrocardiogram Report ---
Test Reason : Blood Pressure : / mmHG Vent. Rate : 056 BPM Atrial Rate : 000 BPM P-R Int : 000 ms QRS Dur : 086 ms QT Int : 416 ms P-R-T Axes : 000 019 -07 degrees QTc Int : 401 ms Atrial fibrillation with slow ventricular response Abnormal ECG When compared with ECG of 06-NOV-2022 04:02, Nonspecific T wave abnormality, worse in Inferior leads QT has shortened Confirmed by Amari Damico ([id number]) on 12/15/2022 4:37:49 PM Referred By: REFERRED SELF Confirmed By:Keagan Damico
[2022-12-15 17:22] LABS: Hematocrit (blood only) 29.9 % (42.0-52.0); Hemoglobin 10.2 g/dl (14.0-18.0)
[2022-12-15 23:08] LABS: Hematocrit (blood only) 27.9 % (42.0-52.0); Hemoglobin 9.4 g/dl (14.0-18.0)
[2022-12-16] MEDS: PANTOprazole 40 MG in DEXTROSE 5% 100 ML IV SCH ×2 (03:51→10:44)
[2022-12-16] MEDS: SODIUM CHLORIDE 0.9% 1000ML 1,000 ML IV SCH (03:51)
[2022-12-16 06:45] LABS: Hematocrit (blood only) 30.3 % (42.0-52.0); Mean Corpuscular Hemoglobin 30.6 pg (25.0-34.0); Mean Corpuscular Volume 92.7 fL (80.0-100.0); Mean Platelet Volume 9.5 fL (9.4-12.4); Platelet Count 110 K/uL (130-400); RDW Coefficient of Variation 15.9 % (11.5-14.5); RDW Standard Deviation 52.4 fL (36.4-46.3); Red Blood Count 3.27 M/uL (4.70-6.10); White Blood Count 7.36 K/ul (4.8-10.8)
[2022-12-16 07:00] LABS: BUN Creatinine Ratio 38.4 (10-20); Calcium 8.5 mg/dl (8.6-10.3); Est GFR (African American) 34.9 ml/min; Est GFR (Non-African American) 30.1 ml/min; Potassium 3.9 mmol/L (3.5-5.1)
--- NOTE | 2022-12-16 08:15 | Anesthesiology Consultation ---
Date of Service December 16, 2022 History Surgery Operation Date: 12/16/22 16:30 Proposed Procedures p Esophagogastroduodenoscopy Dr Jacob - Sergio Jacob MD Height/Weight Height: 6 ft Weight: 93.5 kg Allergies Allergy/AdvReac Type Severity Reaction Status Date / Time felodipine Allergy Intermediate HIVES Verified 12/14/22 21:44 Medications Home Medications Medication Instructions Recorded Confirmed Last Taken aspirin 81 mg tablet,delayed 81 mg PO DAILY 05/19/19 12/14/22 12/14/22 08:00 release (Adult Low Dose Aspirin) allopurinol 100 mg tablet 100 mg PO DAILY 02/24/20 12/14/22 12/14/22 08:00 atorvastatin 40 mg tablet 40 mg PO QID 02/24/20 12/14/22 12/14/22 19:00 cholecalciferol (vitamin D3) 25 25 mcg PO DAILY 03/21/20 12/14/22 11/05/22 mcg (1,000 unit) capsule (Vitamin D3) cyanocobalamin (vitamin B-12) 500 500 mcg PO DAILY 03/21/20 12/14/22 11/05/22 mcg tablet thiamine HCl (vitamin B1) 100 mg 100 mg PO DAILY 03/21/20 12/14/22 12/14/22 08:00 tablet acetaminophen 325 mg capsule 325 mg PO QID PRN Pain 05/26/22 12/14/22 11/05/22 folic acid 0.8 mg capsule 0.8 mg PO DAILY 05/26/22 12/14/22 12/14/22 08:00 apixaban 2.5 mg tablet (Eliquis) 2.5 mg PO BID #60 tabs 11/09/22 12/14/22 12/14/22 19:00 carvedilol 3.125 mg tablet 3.125 mg PO BIDM #60 tabs 11/09/22 12/14/22 12/14/22 19:00 furosemide 40 mg tablet 40 mg PO QAM #30 tabs 11/09/22 12/14/22 12/14/22 08:00 hydralazine 10 mg tablet 10 mg PO BID17 #60 tabs 11/09/22 12/14/22 12/14/22 19:00 Active Medications Generic Name Dose Route Start Last Admin Trade Name Freq PRN Reason Stop Dose Admin Allopurinol 100 mg 12/15/22 09:00 12/15/22 08:10 Allopurinol 100 Mg Tab PO 01/14/23 08:59 100 mg DAILY KETAN Administration Carvedilol 3.125 mg 12/15/22 08:00 12/15/22 17:07 Carvedilol 3.125 Mg Tab PO 01/14/23 07:59 Not Given BIDM KETAN Pantoprazole Sodium 40 mg/ 100 mls @ 20 mls/hr 12/14/22 21:30 12/16/22 03:51 Dextrose IV 01/13/23 21:29 8 mg/hr Q5H KETAN 20 mls/hr Administration 8 MG/HR Sodium Chloride 1,000 mls @ 80 mls/hr 12/15/22 01:14 12/16/22 03:51 Nss 1000ml IV 01/14/23 01:13 80 mls/hr .[id number] KETAN Administration Insulin Aspart 0 units 12/15/22 12:15 12/15/22 20:22 Insulin Aspart Per Unit Charge SC 01/14/23 12:14 Not Given ACHS KETAN NPO Date Last Intake of Fluids: 12/15/22 Time Last Intake of Fluids: 18:00 Date Last Intake of Solids: 12/15/22 Time Last Intake of Solids: 18:00 Past Medical History Medical History Chronic deep vein thrombosis (DVT) CKD (chronic kidney disease) stage 3, GFR 30-59 ml/min Diabetes HLD (hyperlipidemia) Hypoxemia SANDI on CPAP Psoriasis Recurrent spontaneous pneumothorax Sleep apnea with use of continuous positive airway pressure (CPAP) Steatohepatitis, non-alcoholic Vitamin D deficiency Past Family History Family History Brother Heart disease CABG 2014 Father , 61 COPD (chronic obstructive pulmonary disease) Past Surgical History Surgical History History of aortic valve replacement History of colonoscopy History of hernia repair Rupture quadriceps tendon Social History Smoking Status: Never smoker Do You Dip or Chew Tobacco: No Hx Alcohol Use: Yes Alcohol type: beer and wine alcohol intake frequency: holidays/special occasions only Hx Substance Use: No substance use type: does not use Physical Exam Vital Signs Last Vital Signs Temp 36.8 C 12/16/22 08:03 Pulse 54 L 12/16/22 08:03 Resp 16 12/16/22 08:03 BP 135/52 L 12/16/22 08:03 Pulse Ox 99 12/16/22 08:03 O2 Del Method Room Air 12/16/22 08:03 O2 Flow Rate 0 12/14/22 23:23 Testing Laboratory Results 12/16/22 06:21 12/16/22 06:21 PT 12.3 Seconds (9.0-12.0) H 12/14/22 20:04 INR 1.1 (0.9-1.1) 12/14/22 20:04 APTT 26.9 Seconds (21.0-31.0) 12/14/22 20:04 Blood Type A Positive 12/14/22 21:17 Antibody Screen NEGATIVE 12/14/22 21:17 12/16/22 12/15/22 07:23 20:16 POC Glucose 126 H 144 H
--- NOTE | 2022-12-16 08:34 | Gastroenterology Progress Note ---
Date of Service December 16, 2022 Assessment & Plan (1) Melena: Plan: Plan for EGD today Admission and Anticipated Discharge Date Admission Date: December 14, 2022 Subjective No signs of bleeding, Hb Stable Physical Exam Constitutional: WD/WN, vitals as above Cardiovascular: RRR, no murmur, no edema Gastrointestinal (Abdomen): normal bowel sounds, soft, nontender, no hepatosplenomegaly Results & Data Vital Signs (Past 12 Hours) Vital Signs Temp Pulse Pulse Resp BP Pulse Ox O2 Del Method 12/16/22 07:25 36.6 C 55 L 18 126/52 L 96 Room Air 12/16/22 08:03 36.8 C 54 L 16 135/52 L 99 Room Air 12/16/22 07:44 Room Air 12/16/22 07:39 73 12/16/22 04:05 36.9 C 55 L 16 158/64 H 96 Room Air 12/16/22 00:57 Room Air, CPAP 12/15/22 23:34 36.7 C 61 16 117/58 L 96 BiPAP
[2022-12-16] MEDS ORDERED: LIDOCAINE 2% 2 ML VIAL/AMP(20MG/ML) INFIL ONE ×3 (08:39→08:46)
[2022-12-16] MEDS ORDERED: PROPOFOL IV EMULSION 10 MG/ML 20 ML VIAL IV ONE (08:39)
--- NOTE | 2022-12-16 09:01 | GI REPORT ---
Patient Name: Gregorio Davidson Procedure Date: 12/16/2022 8:37 AM Date of : 1940 Admit Type: Inpatient Age: 82 Gender: Male Attending MD: Sergio Jacob MD, Procedure: Upper GI endoscopy Providers: Sergio Jacob MD Referring MD: Manjit Gonzalez Md Indications: Melena Medicines: Propofol per Anesthesia Complications: No immediate complications. Estimated blood loss: None. Estimated Blood Loss: Estimated blood loss: none. Procedure: Pre-Anesthesia Assessment: - Pre-Anesthesia Assessment: - Prior to the procedure, a History and Physical was performed, and patient medications, allergies and sensitivities were reviewed. The patient's tolerance of previous anesthesia was reviewed. Please see Familytic for complete details. - The risks and benefits of the procedure and the sedation options and risks were discussed with the patient. All questions were answered and informed consent was obtained. - Patient identification and proposed procedure were verified prior to the procedure by the physician and the nurse. The procedure was verified in the pre-procedure area in the procedure room. After obtaining informed consent, the endoscope was passed carefully and meticuously under direct vision and only advanced when the lumen was clearly identified, C02 insuflation was utilized throughout the entirity of the procedure. Throughout the procedure, the patient's blood pressure, pulse, and oxygen saturations were monitored continuously. After obtaining informed consent, the endoscope was passed under direct vision. Throughout the procedure, the patient's blood pressure, pulse, and oxygen saturations were monitored continuously. The Endoscope was introduced through the mouth, and advanced to the second part of duodenum. The upper GI endoscopy was accomplished without difficulty. The patient tolerated the procedure well. Findings: The examined esophagus was normal. One non-bleeding superficial gastric ulcer with a clean ulcer base (Ld Class III) was found in the prepyloric region of the stomach. The lesion was 3 mm in largest dimension. Biopsies were taken with a cold forceps for Helicobacter pylori testing. The examined duodenum was normal. No active or recent signs of bleeding Impression: - Normal esophagus. - Non-bleeding gastric ulcer with a clean ulcer base (Ld Class III). Biopsied. - Normal examined duodenum. Recommendation: - Await pathology results. - [facility] for [facility] care. - Use Prilosec (omeprazole) 40 mg PO BID for 2 months. - Can advance diet - Discuss with Cardiology, but likely ok to resume anticoagulation Sergio Jacob MD 12/16/2022 9:01:11 AM This report has been signed electronically. Note Initiated On: 12/16/2022 8:37 AM Number of Addenda: 0 I attest to the content of the Intraoperative Record and orders documented therein, exceptions below {[id number]}
[2022-12-16] MEDS: INSULIN ASPART PER UNIT CHARGE SC SCH ×4 (09:58→20:12)
[2022-12-16] MEDS: carvediloL 3.125 MG TAB PO SCH ×2 (09:59→17:06)
[2022-12-16] MEDS: allopurinoL 100 MG TAB PO SCH (10:46)
[2022-12-16] MEDS ORDERED: FUROSEMIDE 40 MG/4 ML VIAL IV ONE (11:21)
--- NOTE | 2022-12-16 11:37 | Cardiology Progress Note ---
Date of Service December 16, 2022 Assessment & Plan (1) Melena: (2) Acute GI bleeding: (3) Atrial fibrillation: (4) Acute on chronic heart failure with preserved ejection fraction (HFpEF): Plan Patient admitted for worsening SOB, diagnosed with GI bleed, hbg of 6.0. Eliquis and ASA placed on hold. Received 3 units PRBC's. Hbg Improved Tolerated EGD this morning with findings of small non bleeding gastric ulceration. PPI recommended. Bleeding/stroke risks discussed with patient. With shared decision making, it was decided to to not resume Eliquis at this time. Will resume ASA 81 mg daily tomorrow as long as H&H remains stable. Continue carvedilol for rate control of atrial fib. He denies SOB, but has noticeable rales on exam today. Given his severe bioprosthetic , and significant IV fluid initiation, will give furosemide 40 mg IV x1 dose today. He follows with valve clinic for future intervention of his AVR bioprosthesis. He was awaiting sooner appointment. Will send telephone encounter. May also need to consider watchman device given GI bleed on Eliquis. Case discussed with Dr. Richard I spent a total of 35 minutes on the date of service in preparation, delivery, and documentation of the care provided to this patient, excluding any time spent in the performance of separately billed services. Randi Mendoza PA-C Department of Cardiology, [facility] This chart was completed in part utilizing Speech Voice Recognition Software. Grammatical errors, random word insertions, pronoun errors, and incomplete sentences are an occasional consequence of this system due to software limitations, ambient noise, and hardware issues. Any formal questions or concerns about the content, text, or information contained within the body of this dictation should be directly addressed to the provider for clarification. Admission and Anticipated Discharge Date Admission Date: December 14, 2022 Supervising Physician Co-Signing Physician Notes Supervising Physician Attestation: I have personally performed a history and physical examination on the patient. I agree with the physician administrative personal assistant's findings and plan as documented with the following additions. Subjective: Patient feeling subjectively improved. Telemetry reveals atrial fibrillation in the 60s. Exam: Cardiovascular: Irregular rhythm, 2/6 systolic murmur, no edema Pulmonary: Mildly decreased breath sounds in the bases Data: Hemoglobin: 10 g/dL Creatinine 1.98. 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 DVT prophylaxis: SCDs Lio Richard, Subjective Patient evaluated post EGD. Feeling well. Tolerated procedure. Revealed small non bleeding gastric ulcer. Biopsied. He denies SOB, CP, palpitations or dizziness. No LE edema. Hbg improved after transfusions yesterday. No recurrent melena. Review of Systems Review of Systems: All systems reviewed & are unremarkable except as noted in HPI & below Physical Exam Constitutional: WD/WN, vitals as above Neck: trachea midline, no thyromegaly Respiratory: no respiratory distress Auscultation: + crackles (b/l ) Cardiovascular: Rate/Rhythm: + irregularly irregular Heart Sounds: + murmur (II/ systolic murmur LSB with radiation to neck ) Vessels: no JVD Extremities: + edema (trace ankle and pretibial edema ) Gastrointestinal (Abdomen): normal bowel sounds, soft, nontender, no hepatosplenomegaly Neurologic: PERRL, EOMI, accommodation nl, no face palsy, no dysarthria Results & Data Vital Signs (Past 12 Hours) Vital Signs Temp Pulse Pulse Resp BP Pulse Ox O2 Del Method 12/16/22 11:23 36.5 C 59 L 18 154/71 H 99 Room Air 12/16/22 09:59 36.3 C L 54 L 19 162/67 H 99 Room Air 12/16/22 09:36 65 16 124/47 L 100 Room Air 12/16/22 09:16 66 16 116/46 L 98 Room Air 12/16/22 09:01 74 16 99/53 L 99 Room Air 12/16/22 07:25 36.6 C 55 L 18 126/52 L 96 Room Air 12/16/22 08:03 36.8 C 54 L 16 135/52 L 99 Room Air 12/16/22 07:44 Room Air 12/16/22 07:39 73 12/16/22 04:05 36.9 C 55 L 16 158/64 H 96 Room Air 12/16/22 00:57 Room Air, CPAP Laboratory Results CBC 12/15/22 12/15/22 12/15/22 Range/Units 12:53 17:02 22:43 WBC (4.8-10.8) K/ul RBC (4.70-6.10) M/uL Hgb 9.3 L 10.2 L 9.4 L (14.0-18.0) g/dl Hct 27.7 L 29.9 L 27.9 L (42.0-52.0) % Plt Count (130-400) K/uL 12/16/22 Range/Units 06:21 WBC 7.36 (4.8-10.8) K/ul RBC 3.27 L (4.70-6.10) M/uL Hgb 10.0 L (14.0-18.0) g/dl Hct 30.3 L (42.0-52.0) % Plt Count 110 L (130-400) K/uL Comprehensive Metabolic Panel 12/16/22 Range/Units 06:21 Sodium 139 (136-145) mmol/L Potassium 3.9 (3.5-5.1) mmol/L Chloride 107 (98-107) mmol/L Carbon Dioxide 24 (21-32) mmol/L BUN 76 H (6-23) mg/dl Creatinine 1.98 H (0.6-1.4) mg/dl Glucose 142 H (70-99(Fasting)) mg/dl Calcium 8.5 L (8.6-10.3) mg/dl Intake and Output 12/15/22 12/16/22 12/16/22 22:59 06:59 14:59 Intake Total 1762.333 / 3634.999 961.333 / 3634.999 674.000 / 674.000 Balance 1762.333 / 3634.999 961.333 / 3634.999 674.000 / 674.000 Intake: IV 1192.333 / 2334.999 961.333 / 2334.999 674.000 / 674.000 PANTOprazole 40 mg In Dextrose 192.333 / 473.666 100 / 473.666 104.667 / 104.667 5% 100 ml @ 8 MG/HR 20 mls/hr IV Q5H KETAN Rx#:[id number] Sodium Chloride 0.9% 1000ML 1, 1000 / 1861.333 861.333 / 1861.333 569.333 / 569.333 000 ml @ 80 mls/hr IV .[id number] KETAN Rx#:[id number] Oral 570 / 990 Other: Other Intake Source Patient is NPO # Unmeasured Voids 1 1 Weight 93.5 kg 93.5 kg Weight Measurement Method Built in [facility] Patient Weight 12/17/22 06:59 Weight 93.5 kg Diagnostic Findings Telemetry: Atrial fib with controlled rates predominantly in the 50-60's. Dipped into the 30's overnight. EGD report reviewed - Findings: The examined esophagus was normal. One non-bleeding superficial gastric ulcer with a clean ulcer base (Ld Class III) was found in the prepyloric region of the stomach. The lesion was 3 mm in largest dimension. Biopsies were taken with a cold forceps for Helicobacter pylori testing. The examined duodenum was normal. No active or recent signs of bleeding Impression: - Normal esophagus. - Non-bleeding gastric ulcer with a clean ulcer base (Ld Class III). Biopsied. - Normal examined duodenum Medications Administered Current Inpatient Medications Acetaminophen (Acetaminophen 325 Mg Tab) 650 mg PO Q4H PRN PRN Reason: Pain or Fever Stop: 01/14/23 01:13 Allopurinol (Allopurinol 100 Mg Tab) 100 mg PO DAILY [facility] Stop: 01/14/23 08:59 Last Admin: 12/16/22 10:46 Dose: 100 mg Carvedilol (Carvedilol 3.125 Mg Tab) 3.125 mg PO BIDM KETAN Stop: 01/14/23 07:59 Last Admin: 12/16/22 09:59 Dose: Not Given Dextrose (Dextrose 50% 50 Ml Syringe) 25 - 50 ml IV UD PRN; Protocol PRN Reason: Hypoglycemia Protocol Stop: 01/14/23 01:13 Glucagon (Glucagon For Inj 1 Mg Vial) 1 mg SQ UD PRN; Protocol PRN Reason: Hypoglycemia Protocol Stop: 01/14/23 01:13 Glucose (Glucose 10 Tab/Tube) 4 - 8 tab PO UD PRN; Protocol PRN Reason: Hypoglycemia Treatment Stop: 01/14/23 01:13 Glucose (Glucose 40% Gel 15 Gm Tube) 15 - 30 gm PO UD PRN; Protocol PRN Reason: Hypoglycemia Protocol Stop: 01/14/23 01:13 Insulin Aspart (Insulin Aspart Per Unit Charge) 0 units SC ACHS KETAN Stop: 01/14/23 12:14 Last Admin: 12/16/22 11:36 Dose: Not Given Miscellaneous (Carbohydrates For Hypoglycemia ) 15 - 30 gm PO UD PRN PRN Reason: Hypoglycemia Protocol Stop: 01/14/23 01:13 Nitroglycerin (Nitroglycerin Sl 0.4 Mg/Tab Tab) 0.4 mg SL Q5M PRN PRN Reason: Chest Pain Stop: 01/14/23 01:13 Pantoprazole Sodium (Pantoprazole 40 Mg Tab) 40 mg PO BID KETAN Stop: 01/15/23 10:59
[2022-12-16] MEDS: PANTOprazole 40 MG TAB PO SCH ×2 (12:49→20:19)
--- NOTE | 2022-12-16 13:58 | Hospitalist Progress Note ---
Date of Service December 16, 2022 Assessment & Plan (1) Acute GI bleeding: Plan: Patient is an 82 yr male who presents with shortness of breath, found to have symptomatic anemia. Symptomatic Anemia Melena GI bleed likely due to gastric ulcer in setting of anticoagulation use In setting of Aspirin, Eliquis use S/P 3 units PRBCs +FOBT in ED --S/P EGD:Normal esophagus. Non-bleeding gastric ulcer with a clean ulcer base (Ld Class III). Biopsied. Normal examined duodenum. --Pathology:pending Aspirin, Eliquis held for now Continue Protonix drip>>Transitioned to PO Protonix BID--Need to continue for 2 months Monitor H&H and transfuse as needed Appreciate GI input Advance diet as tolerated Hb 10.0 Today Atrial fibrillation Continue Coreg with holding parameters Eliquis on hold due to GI bleed Appreciate cardiology input Likely resume aspirin tomorrow No plan to resume Eliquis Will likely need watchman's procedure Hypertension Continue Coreg with holding parameters Hold Hydralazine Monitor BP DM II Last HbA1C: 6.0 Continue ISS while hospitalized Monitor BGs CKD IIIb Baseline Cr: ~ 1.8 Monitor renal function Avoid nephrotoxic agents as able Nonalcoholic steatohepatitis cirrhosis Follows with GI as outpatient Obstructive sleep apnea Continue CPAP HS Chronic diastolic congestive heart failure valvular heart disease severe prosthetic aortic valve stenosis Resume home diuretics as able Monitor volume status Patient has valve clinic appointment on February 22, 2023 Anemia of Chronic disease monitor CBC DVT Px: SCDs. for now Code Status Full Code Admission and Anticipated Discharge Date Admission Date: December 14, 2022 Subjective Patient is seen and examined at bedside Had EGD earlier today No bleeding issues today Denies any chest pain, dyspnea, dizziness, nausea, abdominal pain Review of Systems Review of Systems: All systems reviewed & are unremarkable except as noted in Subjective Physical Exam Physical Exam: Physical Exam: Vitals signs as noted above General Appearance:Moderately built and nourished, no apparent distress Head: normocephalic, Atraumatic Eyes: normal inspection, EOMI Neck: supple, Trachea midline Respiratory/Chest: Normal breath sounds, basal rales, No accessory muscle use Cardiovascular: Irregularly irregular, +murmur, Bradycardia Abdomen/GI:Soft, Non tender, Protuberant, Bowel sounds present Extremities/Musculoskeletal:normal inspection, 1+edema Neurologic/Psych:AAOX3, grossly no focal neurological deficits Skin: normal color, warm Results & Data Results & Data Vital Signs (Past 12 Hours) Vital Signs Temp Pulse Pulse Resp BP Pulse Ox O2 Del Method 12/16/22 11:23 36.5 C 59 L 18 154/71 H 99 Room Air 12/16/22 09:59 36.3 C L 54 L 19 162/67 H 99 Room Air 12/16/22 09:36 65 16 124/47 L 100 Room Air 12/16/22 09:16 66 16 116/46 L 98 Room Air 12/16/22 09:01 74 16 99/53 L 99 Room Air 12/16/22 07:25 36.6 C 55 L 18 126/52 L 96 Room Air 12/16/22 08:03 36.8 C 54 L 16 135/52 L 99 Room Air 12/16/22 07:44 Room Air 12/16/22 07:39 73 12/16/22 04:05 36.9 C 55 L 16 158/64 H 96 Room Air Laboratory Results Short CBC 12/15/22 12/15/22 12/16/22 Range/Units 17:02 22:43 06:21 WBC 7.36 (4.8-10.8) K/ul Hgb 10.2 L 9.4 L 10.0 L (14.0-18.0) g/dl Hct 29.9 L 27.9 L 30.3 L (42.0-52.0) % Plt Count 110 L (130-400) K/uL BMP 12/16/22 06:21 Sodium 139 Potassium 3.9 Chloride 107 Carbon Dioxide 24 BUN 76 H Creatinine 1.98 H Glucose 142 H Calcium 8.5 L
--- NOTE | 2022-12-16 15:10 | Anesthesiology Progress Note ---
Date of Service December 16, 2022 Anesthesia Post Procedure Vital Signs Vital Signs: Temp Pulse Pulse Resp BP Pulse Ox O2 Del Method 12/16/22 11:23 36.5 C 59 L 18 154/71 H 99 Room Air 12/16/22 09:59 36.3 C L 54 L 19 162/67 H 99 Room Air 12/16/22 09:36 65 16 124/47 L 100 Room Air 12/16/22 09:16 66 16 116/46 L 98 Room Air 12/16/22 09:01 74 16 99/53 L 99 Room Air 12/16/22 07:25 36.6 C 55 L 18 126/52 L 96 Room Air 12/16/22 08:03 36.8 C 54 L 16 135/52 L 99 Room Air 12/16/22 07:44 Room Air 12/16/22 07:39 73 12/16/22 04:05 36.9 C 55 L 16 158/64 H 96 Room Air 12/16/22 00:57 Room Air, CPAP 12/15/22 23:34 36.7 C 61 16 117/58 L 96 BiPAP 12/15/22 19:51 36.5 C 75 20 125/72 99 Room Air 12/15/22 16:26 36.6 C 49 L 18 168/76 H 99 Room Air Transfer of Care Handoff Completed per policy Notes Mental Status: alert / awake / arousable and participated in evaluation Nausea / Vomiting: adequately controlled Pain: adequately controlled Airway Patency, RR, SpO2: stable & adequate BP & HR: stable & adequate Hydration State: stable & adequate Anesthetic Complications: no major complications apparent and Pt Satisfied with anesthetic care
[2022-12-16 20:57] LABS: Hematocrit (blood only) 30.7 % (42.0-52.0); Hemoglobin 10.2 g/dl (14.0-18.0)
[2022-12-17 07:24] LABS: Hematocrit (blood only) 31.1 % (42.0-52.0); Hemoglobin 10.2 g/dl (14.0-18.0); Mean Corpuscular Hemoglobin 30.8 pg (25.0-34.0); Mean Corpuscular Hgb Conc 32.8 g/dL (32.0-36.0); Mean Platelet Volume 9.7 fL (9.4-12.4); Platelet Count 123 K/uL (130-400); RDW Coefficient of Variation 16.1 % (11.5-14.5); RDW Standard Deviation 54.5 fL (36.4-46.3); Red Blood Count 3.31 M/uL (4.70-6.10); White Blood Count 7.22 K/ul (4.8-10.8)
[2022-12-17 07:37] LABS: BUN Creatinine Ratio 34.3 (10-20); Calcium 8.6 mg/dl (8.6-10.3); Creatinine Clr Calc Pharmacy 33.3 ml/min; Est GFR (African American) 34.9 ml/min; Est GFR (Non-African American) 30.1 ml/min; Potassium 3.8 mmol/L (3.5-5.1)
[2022-12-17] MEDS: allopurinoL 100 MG TAB PO SCH (08:36)
[2022-12-17] MEDS: PANTOprazole 40 MG TAB PO SCH (08:36)
[2022-12-17] MEDS: carvediloL 3.125 MG TAB PO SCH (08:36)
[2022-12-17] MEDS: INSULIN ASPART PER UNIT CHARGE SC SCH ×2 (08:37→11:26)
[2022-12-17] MEDS ORDERED: ASPIRIN 81 MG ECTAB PO SCH (10:15)
[2022-12-17] MEDS ORDERED: FUROSEMIDE 40 MG TAB PO SCH (10:15)
--- NOTE | 2022-12-17 10:18 | Cardiology Progress Note ---
Date of Service December 17, 2022 Assessment & Plan (1) Melena: (2) Acute GI bleeding: (3) Atrial fibrillation: (4) Acute on chronic heart failure with preserved ejection fraction (HFpEF): Plan Patient admitted for worsening SOB, diagnosed with GI bleed, hbg of 6.0. Eliquis and ASA placed on hold. Received 3 units PRBC's. Hbg Improved and stable Tolerated EGD yesterday with findings of small non bleeding gastric ulceration. PPI recommended. Will need f/u with PCP and monitor hbg Bleeding/stroke risks discussed with patient. With shared decision making, it was decided to to not resume Eliquis at this time. Will resume ASA 81 mg daily today Continue carvedilol for rate control of atrial fib. He received one dose of IV lasix yesterday. Improved aeration in the lungs. Appears euvolemic. Resume oral dose furosemide 40 mg daily today He follows with valve clinic for future intervention of his AVR bioprosthesis. He was awaiting sooner appointment. Will send telephone encounter. May also need to consider watchman device given GI bleed on Eliquis. Stable for discharge today from cardiac perspective. Case discussed with Dr. Richard I spent a total of 25 minutes on the date of service in preparation, delivery, and documentation of the care provided to this patient, excluding any time spent in the performance of separately billed services. Randi Mendoza PA-C Department of Cardiology, [facility] This chart was completed in part utilizing Speech Voice Recognition Software. Grammatical errors, random word insertions, pronoun errors, and incomplete sentences are an occasional consequence of this system due to software limitations, ambient noise, and hardware issues. Any formal questions or concerns about the content, text, or information contained within the body of this dictation should be directly addressed to the provider for clarification. Admission and Anticipated Discharge Date Admission Date: December 14, 2022 Supervising Physician Co-Signing Physician Notes Supervising Physician Attestation: I have personally performed a history and physical examination on the patient. I agree with the physician fleet administrative assistant's findings and plan as documented with the following additions. Subjective: Patient subjectively improved. Hemoglobin stable. Exam: Cardiovascular: Regular rhythm, bradycardic, 2/6 systolic murmur, no edema Pulmonary: Lungs clear to auscultation bilaterally Data: Hemoglobin 10.2 today, stable compared to yesterday Assessment and Plan: -Problems as noted above Resume prior to hospital treatment furosemide 40 mg daily. Continue Protonix. Resume aspirin 81 mg daily. We will hold off on resuming Eliquis for now as risk of bleeding felt to outweigh benefits at present. Outpatient follow-up with comprehensive valve clinic. Stable from cardiac perspective for discharge. Lio Richard, DO Subjective Patient feeling well this morning. Ambulating in room without dyspnea. Slept well. No SOB, orthopnea, PND or edema. No chest pain. No dizziness. No recurrent GI bleeding and stable hbg. Review of Systems Review of Systems: All systems reviewed & are unremarkable except as noted in HPI & below Physical Exam Constitutional: WD/WN, vitals as above Neck: trachea midline, no thyromegaly Respiratory: no respiratory distress Auscultation: lungs clear to auscultation bilaterally Cardiovascular: Rate/Rhythm: + irregularly irregular Heart Sounds: + murmur (II/ systolic murmur LSB with radiation to neck ) Vessels: no JVD Extremities: no edema Gastrointestinal (Abdomen): normal bowel sounds, soft, nontender, no hepatosplenomegaly Neurologic: PERRL, EOMI, accommodation nl, no face palsy, no dysarthria Results & Data Vital Signs (Past 12 Hours) Vital Signs Temp Pulse Pulse Resp BP Pulse Ox O2 Del Method 12/17/22 07:50 36.4 C L 76 18 145/64 H 95 Room Air 12/17/22 03:06 36.3 C L 52 L 16 157/76 H 100 CPAP 12/17/22 00:03 Room Air 12/16/22 23:45 49 L 12/16/22 23:18 36.5 C 79 20 116/67 95 CPAP Laboratory Results CBC 12/16/22 12/17/22 Range/Units 20:32 06:52 WBC 7.22 (4.8-10.8) K/ul RBC 3.31 L (4.70-6.10) M/uL Hgb 10.2 L 10.2 L (14.0-18.0) g/dl Hct 30.7 L 31.1 L (42.0-52.0) % Plt Count 123 L (130-400) K/uL Comprehensive Metabolic Panel 12/17/22 Range/Units 06:52 Sodium 139 (136-145) mmol/L Potassium 3.8 (3.5-5.1) mmol/L Chloride 106 (98-107) mmol/L Carbon Dioxide 26 (21-32) mmol/L BUN 68 H (6-23) mg/dl Creatinine 1.98 H (0.6-1.4) mg/dl Glucose 122 H (70-99(Fasting)) mg/dl Calcium 8.6 (8.6-10.3) mg/dl Intake and Output 12/16/22 12/17/22 12/17/22 22:59 06:59 14:59 Intake Total 920 / 1644.000 50 / 1644.000 Output Total 2 / 2 Balance 918 / 1642.000 50 / 1642.000 Intake: Oral 920 / 970 50 / 970 Output: # Bowel Movements 2 / 2 Other: # Unmeasured Voids 1 1 Weight 95.7 kg Weight Measurement Method Built in [facility] Diagnostic Findings Telemetry reviewed - afib with rates ranging 40-70 bpm. No symptoms. Medications Administered Current Inpatient Medications Acetaminophen (Acetaminophen 325 Mg Tab) 650 mg PO Q4H PRN PRN Reason: Pain or Fever Stop: 01/14/23 01:13 Last Admin: 12/16/22 20:24 Dose: 650 mg Allopurinol (Allopurinol 100 Mg Tab) 100 mg PO DAILY [facility] Stop: 01/14/23 08:59 Last Admin: 12/17/22 08:36 Dose: 100 mg Aspirin (Aspirin 81 Mg Ectab) 81 mg PO QAM [facility] Stop: 01/16/23 10:14 Carvedilol (Carvedilol 3.125 Mg Tab) 3.125 mg PO BIDM [facility] Stop: 01/14/23 07:59 Last Admin: 12/17/22 08:36 Dose: 3.125 mg Dextrose (Dextrose 50% 50 Ml Syringe) 25 - 50 ml IV UD PRN; Protocol PRN Reason: Hypoglycemia Protocol Stop: 01/14/23 01:13 Furosemide (Furosemide 40 Mg Tab) 40 mg PO QAM [facility] Stop: 01/16/23 10:14 Glucagon (Glucagon For Inj 1 Mg Vial) 1 mg SQ UD PRN; Protocol PRN Reason: Hypoglycemia Protocol Stop: 01/14/23 01:13 Glucose (Glucose 10 Tab/Tube) 4 - 8 tab PO UD PRN; Protocol PRN Reason: Hypoglycemia Treatment Stop: 01/14/23 01:13 Glucose (Glucose 40% Gel 15 Gm Tube) 15 - 30 gm PO UD PRN; Protocol PRN Reason: Hypoglycemia Protocol Stop: 01/14/23 01:13 Insulin Aspart (Insulin Aspart Per Unit Charge) 0 units SC ACHS [facility] Stop: 01/14/23 12:14 Last Admin: 12/17/22 08:37 Dose: Not Given Miscellaneous (Carbohydrates For Hypoglycemia ) 15 - 30 gm PO UD PRN PRN Reason: Hypoglycemia Protocol Stop: 01/14/23 01:13 Nitroglycerin (Nitroglycerin Sl 0.4 Mg/Tab Tab) 0.4 mg SL Q5M PRN PRN Reason: Chest Pain Stop: 01/14/23 01:13 Pantoprazole Sodium (Pantoprazole 40 Mg Tab) 40 mg PO BID [facility] Stop: 01/15/23 10:59 Last Admin: 12/17/22 08:36 Dose: 40 mg
--- NOTE | 2022-12-17 12:14 | Hospitalist Progress Note ---
Date of Service December 17, 2022 Assessment & Plan (1) Acute GI bleeding: Plan: Patient is an 82 yr male who presents with shortness of breath, found to have symptomatic anemia. Symptomatic Anemia Melena GI bleed likely due to gastric ulcer in setting of anticoagulation use In setting of Aspirin, Eliquis use S/P 3 units PRBCs +FOBT in ED --S/P EGD:Normal esophagus. Non-bleeding gastric ulcer with a clean ulcer base (Ld Class III). Biopsied. Normal examined duodenum. --Pathology:pending Aspirin, Eliquis held Continue Protonix drip>>Transitioned to PO Protonix BID--Need to continue for 2 months Monitor H&H and transfuse as needed Appreciate GI input Hb stable Advised to follow-up with GI upon discharge Atrial fibrillation Continue Coreg with holding parameters Eliquis on hold due to GI bleed Appreciate cardiology input Resumed aspirin No plan to resume Eliquis Will likely need watchman's procedure Discussed with Cardiology today: Can continue Coreg at reduced dose (3.125 mg 1/2 Tab BID) given bradycardia. Hypertension Continue Coreg at reduced dose BP Variable Decrease Hydralazine to 5mg BID Monitor BP DM II Last HbA1C: 6.0 Continue ISS while hospitalized Monitor BGs CKD IIIb Baseline Cr: ~ 1.8 Monitor renal function Avoid nephrotoxic agents as able Nonalcoholic steatohepatitis cirrhosis Follows with GI as outpatient Obstructive sleep apnea Continue CPAP HS Chronic diastolic congestive heart failure valvular heart disease severe prosthetic aortic valve stenosis Resume home diuretics as able Monitor volume status Patient has valve clinic appointment on February 22, 2023 Anemia of Chronic disease monitor CBC DVT Px: SCDs. Re:GI bleed Code Status Full Code Disposition Home Admission and Anticipated Discharge Date Admission Date: December 14, 2022 Subjective Patient is seen and examined at bedside Denies any bleeding issues today Offers no new complaints Eager to get discharged Discussed with Cardiology today Denies any chest pain, dyspnea, dizziness, nausea, abdominal pain Review of Systems Review of Systems: All systems reviewed & are unremarkable except as noted in Subjective Physical Exam Physical Exam: Physical Exam: Vitals signs as noted above General Appearance:Moderately built and nourished, no apparent distress Head: normocephalic, Atraumatic Eyes: normal inspection, EOMI Neck: supple, Trachea midline Respiratory/Chest: Normal breath sounds, basal rales, No accessory muscle use Cardiovascular: Irregularly irregular, +murmur, Bradycardia Abdomen/GI:Soft, Non tender, Protuberant, Bowel sounds present Extremities/Musculoskeletal:normal inspection, 1+edema Neurologic/Psych:AAOX3, grossly no focal neurological deficits Skin: normal color, warm Results & Data Results & Data Vital Signs (Past 12 Hours) Vital Signs Temp Pulse Pulse Resp BP Pulse Ox O2 Del Method 12/17/22 11:45 36.4 C L 42 L 16 123/62 100 Room Air 12/17/22 11:27 86 12/17/22 07:50 36.4 C L 76 18 145/64 H 95 Room Air 12/17/22 03:06 36.3 C L 52 L 16 157/76 H 100 CPAP Laboratory Results Short CBC 12/16/22 12/17/22 Range/Units 20:32 06:52 WBC 7.22 (4.8-10.8) K/ul Hgb 10.2 L 10.2 L (14.0-18.0) g/dl Hct 30.7 L 31.1 L (42.0-52.0) % Plt Count 123 L (130-400) K/uL [facility] 12/17/22 06:52 Sodium 139 Potassium 3.8 Chloride 106 Carbon Dioxide 26 BUN 68 H Creatinine 1.98 H Glucose 122 H Calcium 8.6
--- NOTE | 2022-12-17 13:01 | Discharge Summary ---
Date of Service December 17, 2022 Admission HPI Per Admitting Provider CHIEF COMPLAINT: Shortness of breath, symptomatic anemia. HISTORY OF PRESENT ILLNESS: This is an 82-year-old male with past medical history significant for chronic diastolic CHF, EF of 60-65%, severe bioprosthetic aortic valve stenosis, history of paroxysmal atrial fibrillation, valvular heart disease, [id number] AR, mild MR, pulmonary hypertension, hypertension, hyperlipidemia, diabetes diet controlled; [place] cirrhosis, obstructive sleep apnea, CPAP, history of recurrent right pneumothorax, chronic kidney disease, baseline creatinine 1.7; chronic anemia, baseline hemoglobin around 11; chronic thrombocytopenia, skin cancer as per records, was recently in the hospital in the first week of November with shortness of breath and found to be acute on chronic heart failure with preserved ejection fraction, blood pressure medication was adjusted with stopping metoprolol and starting Coreg and also adding hydralazine, history of bradycardia, atenolol was changed to Toprol on previoust admission, Toprol was changed to Coreg last admit and also he was placed on Eliquis on last admission for a fib and was discharged home. The patient lives at home with his . The patient says he was doing okay.The other day, he mowed grass, and today he had some shoulder pain from mowing grass and also he was feeling short of breath and also he noticed black stools for the last 2 to 3 days. That is the reason he came to the hospital. His Hemoccult was positive in the ER and his hemoglobin was found to be 6, creatinine was 2 and the ER ordered 2 units of PRBC, which he is getting now. He is hemodynamically stable, alert and oriented. Denies any chest pain. He has some mild cough, no runny nose, no sore throat, no headache. Vision is okay. No earaches, no nausea, no abdominal pain. Normal bladder movements. Admission Exam Per Admitting Provider PHYSICAL EXAMINATION: GENERAL: The patient is alert and oriented, not in acute distress. VITAL SIGNS: Temperature 37.4, pulse 67, respiratory rate 18, blood pressure 129/59, oxygen 98% on room air. HEENT: Pupils equal, round and reactive to light. Oral mucosa moist. NECK: No JVD or neck masses. CARDIOVASCULAR: S1 and S2 heard. Regular rate and rhythm. No murmur, no gallop. RESPIRATORY SYSTEM: Normal AP diameter. No accessory muscle use. No wheezing or crackles. ABDOMEN: Soft, bowel sounds present, nontender, no distention. CENTRAL NERVOUS SYSTEM: Alert and oriented. Speech is clear. No facial droop. Obeys simple commands. Moves extremities. EXTREMITIES: Bilateral pedal edema +1 present, no erythema seen. Principal Diagnosis Symptomatic Anemia Melena Gastric ulcer Atrial fibrillation with slow ventricular response Discharge Data Allergies Allergy/AdvReac Type Severity Reaction Status Date / Time felodipine Allergy Intermediate HIVES Verified 12/14/22 21:44 Consultations 12/14/22 21:11 ED Decision to Admit Stat 12/15/22 08:00 Consult Cardiology Routine 12/15/22 20:00 Consult Gastroenterology Routine Procedures Performed Operation Date: 12/16/22 16:30 Actual Procedures p EGD Biopsy Cytology - Sergio Jacob MD Ordered Studies Laboratory Results WBC 7.22 K/ul (4.8-10.8) 12/17/22 06:52 RBC 3.31 M/uL (4.70-6.10) L 12/17/22 06:52 Hgb 10.2 g/dl (14.0-18.0) L 12/17/22 06:52 Hct 31.1 % (42.0-52.0) L 12/17/22 06:52 MCV 94.0 fL (80.0-100.0) 12/17/22 06:52 MCH 30.8 pg (25.0-34.0) 12/17/22 06:52 MCHC 32.8 g/dL (32.0-36.0) 12/17/22 06:52 RDW Std Deviation 54.5 fL (36.4-46.3) H 12/17/22 06:52 RDW Coeff of Efe 16.1 % (11.5-14.5) H 12/17/22 06:52 Plt Count 123 K/uL (130-400) L 12/17/22 06:52 MPV 9.7 fL (9.4-12.4) 12/17/22 06:52 Immature Gran % (Auto) 0.6 % 12/15/22 06:04 Neut % (Auto) 57.5 % 12/15/22 06:04 Lymph % (Auto) 26.7 % 12/15/22 06:04 [place] % (Auto) 11.3 % 12/15/22 06:04 Eos % (Auto) 3.5 % 12/15/22 06:04 Baso % (Auto) 0.4 % 12/15/22 06:04 Neut # (Auto) 3.10 K/uL (1.40-6.50) 12/15/22 06:04 Lymph # (Auto) 1.44 K/uL (1.2-3.4) 12/15/22 06:04 [place] # (Auto) 0.61 K/uL (0.11-0.59) H 12/15/22 06:04 Eos # (Auto) 0.19 K/uL (0-0.50) 12/15/22 06:04 Baso # (Auto) 0.02 K/uL (0-0.2) 12/15/22 06:04 Immature Gran # (Auto) 0.03 K/uL (0.01-0.20) 12/15/22 06:04 Polychromasia 1+ 12/15/22 06:04 Ovalocytes 1+ 12/14/22 20:04 PT 12.3 Seconds (9.0-12.0) H 12/14/22 20:04 INR 1.1 (0.9-1.1) 12/14/22 20:04 APTT 26.9 Seconds (21.0-31.0) 12/14/22 20:04 PTT Ratio 1.0 12/14/22 20:04 Sodium 139 mmol/L (136-145) 12/17/22 06:52 Potassium 3.8 mmol/L (3.5-5.1) 12/17/22 06:52 Chloride 106 mmol/L (98-107) 12/17/22 06:52 Carbon Dioxide 26 mmol/L (21-32) 12/17/22 06:52 Anion Gap 7 (3-11) 12/17/22 06:52 BUN 68 mg/dl (6-23) H 12/17/22 06:52 Creatinine 1.98 mg/dl (0.6-1.4) H 12/17/22 06:52 Est Cr Clr Drug Dosing 33.3 ml/min 12/17/22 06:52 Est GFR ( Amer) 34.9 ml/min 12/17/22 06:52 Est GFR (Non-Af Amer) 30.1 ml/min 12/17/22 06:52 BUN/Creatinine Ratio 34.3 (10-20) H 12/17/22 06:52 Glucose 122 mg/dl (70-99(Fasting)) H 12/17/22 06:52 POC Glucose 144 mg/dl (70-99) H 12/17/22 11:16 Calcium 8.6 mg/dl (8.6-10.3) 12/17/22 06:52 Magnesium 1.7 mg/dl (1.7-2.4) 12/15/22 06:04 Total Bilirubin 0.5 mg/dl (0.2-1.0) 12/14/22 20:04 AST 15 U/L (13-39) 12/14/22 20:04 ALT 10 U/L (7-52) 12/14/22 20:04 Alkaline Phosphatase 99 U/L (34-104) 12/14/22 20:04 Troponin I High Sens 14.8 pg/ml (0-20) 12/14/22 20:04 Total Protein 6.6 gm/dl (6.0-8.3) 12/14/22 20:04 Albumin 3.5 gm/dl (3.4-5.0) 12/14/22 20:04 Globulin 3.1 gm/dl (2.5-4.0) 12/14/22 20:04 Albumin/Globulin Ratio 1.1 (0.9-2) 12/14/22 20:04 TSH 2.268 uIu/ml (0.300-4.500) 12/14/22 21:17 SARS-CoV-2, RNA, NAAT NEGATIVE (NEGATIVE) 12/14/22 20:05 Blood Type A Positive 12/14/22 21:17 Blood Type Recheck A Positive 12/14/22 21:49 Antibody Screen NEGATIVE 12/14/22 21:17 Crossmatch See Detail 12/14/22 21:17 Impressions Chest X-Ray 12/14/22 19:53 XR chest 1V not portable CLINICAL HISTORY: SOB TECHNIQUE: Single frontal radiograph of the chest was obtained. Comparison: Comparison is made to chest radiograph 11/06/2022 FINDINGS: Median sternotomy wires are unchanged. Cardiomegaly is noted. The aortic arch is calcified. The lungs are clear. There are trace bilateral pleural effusions. IMPRESSION: Trace bilateral pleural effusions are seen, the right effusion is decreased from prior exam. ACT 112: Negative or not required by law. Electronically signed by: Ludwig Vaz M.D. 12/15/2022 7:39 AM Hospital Course (1) Acute GI bleeding: Patient is an 82 yr male who presents with shortness of breath, found to have symptomatic anemia. Symptomatic Anemia Melena GI bleed likely due to gastric ulcer in setting of anticoagulation use In setting of Aspirin, Eliquis use S/P 3 units PRBCs +FOBT in ED --S/P EGD:Normal esophagus. Non-bleeding gastric ulcer with a clean ulcer base (Ld Class III). Biopsied. Normal examined duodenum. --Pathology:pending Aspirin, Eliquis held Continue Protonix drip>>Transitioned to PO Protonix BID--Need to continue for 2 months Monitor H&H and transfuse as needed Appreciate GI input Hb stable Advised to follow-up with GI upon discharge Atrial fibrillation Continue Coreg with holding parameters Eliquis on hold due to GI bleed Appreciate cardiology input Resumed aspirin No plan to resume Eliquis Will likely need watchman's procedure Discussed with Cardiology today: Can continue Coreg at reduced dose (3.125 mg 1/2 Tab BID) given bradycardia. Hypertension Continue Coreg at reduced dose BP Variable Decrease Hydralazine to 5mg BID Monitor BP DM II Last HbA1C: 6.0 Continue ISS while hospitalized Monitor BGs CKD IIIb Baseline Cr: ~ 1.8 Monitor renal function Avoid nephrotoxic agents as able Nonalcoholic steatohepatitis cirrhosis Follows with GI as outpatient Obstructive sleep apnea Continue CPAP HS Chronic diastolic congestive heart failure valvular heart disease severe prosthetic aortic valve stenosis Resume home diuretics as able Monitor volume status Patient has valve clinic appointment on February 22, 2023 Anemia of Chronic disease monitor CBC DVT Px: SCDs. Re:GI bleed Code Status Full Code Disposition Home Total Time Total Time Spent Total Time Spent (In Minutes): 55 minutes Discharge Plan Discharge Items Patient Disposition: Home - Self-Care Reason For Visit: SOB Discharge Diagnosis: Symptomatic Anemia Melena Gastric ulcer Atrial fibrillation with slow ventricular response Condition on Discharge: Serious Activity: Per Instructions section Exercise/Sports: Wait until after follow-up appointment Non-emergency contact: Primary Care Provider, Supervisor [employer] and [employer] Worker Call non-emergency contact if: you have any medication questions, your symptoms worsen, your pain is concerning for you and you have a fever Follow-up/Referrals: Sergio Jacob MD [Physician] - (The Gastroenterology office will call you with an appointment. ) Nick Edwards MD [Primary Care Provider] - (Date & Time 12/19/2022 10:40 AM Provider Nick Edwards MD [facility] ) Randi Mendoza PA-C [Physician Rubber And Pounder] - (The Cardiology office will call you with an appointment for follow up.) Diet: Carb Consistent or DM2 Addtl Attending Provider Instructions: Follow-up with your primary care physician Dr. Edwards in 1 week as scheduled Follow-up with your commercial loan collection officer in 2-3 weeks Follow up with your [employer] Worker Cecil as recommended. --- Start taking Protonix 40 mg twice a day for 2 months. Further recommendations as per your buffing wheel presser --- Your gastric ulcer pathology report is pending at the time of discharge. Follow-up with your physician for results. Medication changes: 1)--- Your hydralazine is decreased to 5 mg twice a day -2)-- Your Eliquis is discontinued given bleeding issues 3)-- Your Coreg 3.125mg dose is decreased to 1/2 tablet twice a day given low heart rate as recommended by your commercial loan collection officer Seek immediate medical attention if your symptoms reoccur or worsen Please take all medications as instructed on discharge list below. Please call if you have any questions or problems. You can reach a [facility] hospitalist on duty at [facility] 24 hours a day by calling [phone] Pending Studies at Discharge: Yes Studies:: Gastric Ulcer Pathology Stand-Alone Forms: My [facility] [employer], Smoking Cessation Medications and DC Order Prescriptions: New pantoprazole 40 mg Tablet,Delayed Release (Dr/Ec) 40 mg PO BID Qty: 60 2RF Continued aspirin [Adult Low Dose Aspirin] 81 mg tablet,delayed release (DR/EC) 81 mg PO DAILY allopurinol 100 mg tablet 100 mg PO DAILY atorvastatin 40 mg tablet 40 mg PO QID cholecalciferol (vitamin D3) [Vitamin D3] 25 mcg (1,000 unit) Capsule 25 mcg PO DAILY thiamine HCl (vitamin B1) 100 mg Tablet 100 mg PO DAILY cyanocobalamin (vitamin B-12) 500 mcg Tablet 500 mcg PO DAILY furosemide 40 mg Tablet 40 mg PO QAM Qty: 30 1RF acetaminophen 325 mg Capsule 325 mg PO QID PRN (Reason: Pain) folic acid 0.8 mg Capsule 0.8 mg PO DAILY Changed carvedilol 3.125 mg Tablet 3.125 mg PO UD Qty: 60 1RF Rx Instructions: Take 1/2 tab twice a day hydralazine 10 mg Tablet 5 mg PO [id number] Qty: 60 1RF Discontinued Eliquis 2.5 mg Tablet 2.5 mg PO BID Qty: 60 1RF Discharge Orders: Discharge Order (Routine); Ordered 12/17/22 Ordered By: Manjit Gonzalez Admission Data Admit Date/Time: 12/14/22 23:29 Attending Provider: Manjit Gonzalez Admit Provider: Ronaldo Solares Primary Care Provider: Nick Edwards Other Providers: Ronaldo Solares ; Lio Richard Irphan E.
== END 2022-12-17 15:35 | disposition home or self-care (01) | DRG 813 ==
LOC: ED 19:46 → 2S 23:29

== ENCOUNTER 2023-08-27 13:16 | Observation (INO) ==
--- NOTE | 2023-08-27 14:06 | Emergency Department Note ---
Impression & Plan Abdominal pain, Thrombocytopenia, Cirrhosis of liver, Abnormal LFTs ED Provider Note NAME: POPPY MENDOZA AGE: 82 SEX: M : 1940 ARRIVES VIA: Walk-In INFORMANT: Patient, ED PROVIDER(S): Ronnie Marie DO CHIEF COMPLAINT: Abdominal pain HPI: The patient is an 82-year-old male who presented to the emergency department for abdominal pain. The patient initially started having intermittent episodes of abdominal pain over the last few days. Since that time the patient started having much more severe abdominal pain especially over the last 24 hours. He localizes the pain to his periumbilical region as well as his left lower quadrant. He denies having any rectal bleeding. He denies having any constipation. The patient denies having any back pain. He has noted some shortness of breath with exertion. ROS: See above HPI for pertinent positives & negatives. A total of 10 systems reviewed and were otherwise negative. PAST MEDICAL HISTORY: See Below PAST SURGICAL HISTORY: See Below FAMILY HISTORY: See Below SOCIAL HISTORY: See Below HOME MEDICATIONS: See Below ALLERGIES: See Below VITALS: See Below PHYSICAL EXAMINATION: GENERAL: Patient is awake alert in no acute distress patient is resting comfortably and showing no signs of anxiety EYES: The conjunctivae are clear. The pupils are round and reactive. EARS, NOSE, MOUTH AND THROAT: The nose is without any evidence of any deformity. Mucous membranes are moist. Tongue is midline. NECK: The neck is nontender and supple. RESPIRATORY: Normal respiratory effort is noted there is no evidence of wheezing rhonchi or rales CARDIOVASCULAR: Regular rate and rhythm noted there no murmurs rubs or gallops normal S1 normal S2. GASTROINTESTINAL: The abdomen is soft and mildly distended. There is periumbilical tenderness to palpation which is moderate. There is no guarding or rigidity. MUSCULOSKELETAL/EXTREMITIES: There is no evidence of gross deformity full range of motion is noted in the hips and shoulders. SKIN: There is no obvious evidence of any rash. There are no petechiae, pallor or cyanosis noted. NEUROLOGIC: Patient is awake alert and oriented x3. MEDICAL DECISION MAKING: The patient is an 82-year-old male who presented to the emergency department for an evaluation of abdominal pain. The patient had diffuse abdominal pain which was very significant especially on the left side. I discussed patient's laboratory and radiographic studies with him. He was found to have significant elevations in his liver function studies as well as signs of cirrhosis on CT. There is also a possible mass on the one lobe of the liver. This may require further inpatient workup. Given the patient's degree of pain as well as his findings I do feel the patient would be a good inpatient candidate for this reason [facility] The patient was treated with IV pain medication and IV antiemetics. The patient's significant other did volunteer that the patient does have a long drinking history. 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 Triage Nursing notes reviewed. Prior medical records reviewed Vital Signs: reviewed and remarkable for elevated blood pressure. Differential diagnosis: Etiologies such as appendicitis, diverticulitis, obstruction, inflammatory bowel disease, renal colic, PUD, biliary pathology, pancreatitis, mesenteric ischemia, aortic pathology, infections, genitourinary, UTI, perforated viscus, as well as others were entertained. ER treatment provided: See below Diagnostics interpreted by me: ECG: EKG was obtained in the emergency department. My interpretation is atrial fibrillation at 72 bpm. There was PVCs noted. LVH was noted by voltage criteria. This was compared to a tracing from December 14, 2022. No changes were noted. Cardiac Monitoring: An order was placed for continuous cardiac monitoring. The monitor shows a rate of 90 bpm with sinus rhythm. Laboratory studies: As stated above and show below. Imaging studies: See below. Radiographic imaging was reviewed by myself Consultation(s): I discussed this case with Hel[place] who [facility] Past Med/Surg History Medical History Chronic deep vein thrombosis (DVT) Sleep apnea with use of continuous positive airway pressure (CPAP) Hypoxemia Recurrent spontaneous pneumothorax SANDI on CPAP CKD (chronic kidney disease) stage 3, GFR 30-59 ml/min Vitamin D deficiency Steatohepatitis, non-alcoholic HLD (hyperlipidemia) Psoriasis Diabetes Surgical History History of colonoscopy History of hernia repair Rupture quadriceps tendon History of aortic valve replacement Family History Brother Heart disease CABG 2013 Father , 61 COPD (chronic obstructive pulmonary disease) Social History Smoking Status: Never smoker Do You Dip or Chew Tobacco: No; Hx Alcohol Use: Yes Alcohol type: beer and wine Hx Substance Use: No Preferred Language: Iranian 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: Effective 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 Beliefs That Will Affect Care: None marital status: Current Living Situation: Spouse Feels Safe at Home: Yes Assistive Devices: CPAP Allergies Allergies Allergy/AdvReac Type Severity Reaction Status Date / Time felodipine Allergy Intermediate HIVES Verified 08/27/23 17:27 empagliflozin Allergy Unknown On file w/ Unverified 08/27/23 17:27 [From Tessie] [facility] pharmacy, reaction unknown Home Meds Home Medications Medication Instructions Recorded Confirmed aspirin 81 mg tablet,delayed 81 mg PO DAILY 05/19/19 08/27/23 release (Adult Low Dose Aspirin) allopurinol 100 mg tablet 100 mg PO DAILY 02/24/20 08/27/23 atorvastatin 40 mg tablet 40 mg PO DAILY 02/24/20 08/27/23 cholecalciferol (vitamin D3) 25 25 mcg PO DAILY 03/21/20 08/27/23 mcg (1,000 unit) capsule (Vitamin D3) cyanocobalamin (vitamin B-12) 500 500 mcg PO DAILY 03/21/20 08/27/23 mcg tablet thiamine HCl (vitamin B1) 100 mg 100 mg PO DAILY 03/21/20 08/27/23 tablet acetaminophen 325 mg capsule 650 mg PO QID PRN Pain 05/26/22 08/27/23 folic acid 0.8 mg capsule 0.8 mg PO DAILY 05/26/22 08/27/23 carvedilol 3.125 mg tablet 1.5625 mg PO BID 08/27/23 08/27/23 clopidogrel 75 mg tablet 75 mg PO QAM 08/27/23 08/27/23 hydralazine 10 mg tablet 5 mg PO BID 08/27/23 08/27/23 Previous Rx's Medication Instructions Recorded furosemide 40 mg tablet 40 mg PO QAM #30 tabs 11/09/22 pantoprazole 40 mg tablet,delayed 40 mg PO BID #60 tabs 06/14/23 release Results & Data (ED) Vital Signs Vital Signs - 24 hr 08/27/23 13:20 08/27/23 14:07 08/27/23 14:34 Temperature 36.3 C L Temperature Source Temporal Artery Scan Pulse Rate 82 64 62 Pulse Rate from SpO2 Sensor Pulse Rhythm Regular Respiratory Rate 18 12 24 Respiratory Effort / Characteristics Spontaneous Respiratory Depth Normal Blood Pressure 181/80 H Blood Pressure Mean 113 Pulse Oximetry 98 98 98 Oxygen Delivery Method Room Air Room Air Sepsis Recent Fever Within 48 Hours No Sepsis New/Unexplained Change in Mental Status No Sepsis Action Taken by Nursing No Action Required 08/27/23 14:35 08/27/23 15:00 08/27/23 16:00 Temperature Temperature Source Pulse Rate 76 70 83 Pulse Rate from SpO2 Sensor 88 Pulse Rhythm Respiratory Rate 20 16 Respiratory Effort / Characteristics Respiratory Depth Blood Pressure 181/80 H 172/110 H Blood Pressure Mean 113 130 Pulse Oximetry 96 98 Oxygen Delivery Method Room Air Room Air Sepsis Recent Fever Within 48 Hours Sepsis New/Unexplained Change in Mental Status Sepsis Action Taken by Nursing 08/27/23 18:00 Temperature Temperature Source Pulse Rate 90 Pulse Rate from SpO2 Sensor 83 Pulse Rhythm Respiratory Rate 20 Respiratory Effort / Characteristics Respiratory Depth Blood Pressure 173/100 H Blood Pressure Mean 124 Pulse Oximetry 95 Oxygen Delivery Method Room Air Sepsis Recent Fever Within 48 Hours Sepsis New/Unexplained Change in Mental Status Sepsis Action Taken by Long-Term Medications Current Medication List: was personally reviewed by me Laboratory Data Attestation: I reviewed the patient's lab results. 08/27/23 13:53 08/27/23 13:53 Lab Results 08/27/23 Range/Units 13:53 WBC 5.85 (4.8-10.8) K/ul RBC 3.45 L (4.70-6.10) M/uL Hgb 10.9 L (14.0-18.0) g/dl Hct 33.0 L (42.0-52.0) % MCV 95.7 (80.0-100.0) fL MCH 31.6 (25.0-34.0) pg MCHC 33.0 (32.0-36.0) g/dL RDW Std Deviation 50.5 H (36.4-46.3) fL RDW Coeff of Efe 14.6 H (11.5-14.5) % Plt Count 77 L (130-400) K/uL MPV 10.4 (9.4-12.4) fL Immature Gran % (Auto) 0.3 % Neut % (Auto) 74.9 % Lymph % (Auto) 13.3 % [place] % (Auto) 8.9 % Eos % (Auto) 2.1 % Baso % (Auto) 0.5 % Neut # (Auto) 4.38 (1.40-6.50) K/uL Lymph # (Auto) 0.78 L (1.20-3.40) K/uL [place] # (Auto) 0.52 (0.11-0.59) K/uL Eos # (Auto) 0.12 (0.00-0.50) K/uL Baso # (Auto) 0.03 (0.00-0.20) K/uL Immature Gran # (Auto) 0.02 (0.01-0.20) K/uL PT 12.4 H (9.0-12.0) Seconds INR 1.1 (0.9-1.1) APTT 30 (21-31) Seconds PTT Ratio 1.1 Sodium 136 (136-145) mmol/L Potassium 4.4 (3.5-5.1) mmol/L Chloride 104 (98-107) mmol/L Carbon Dioxide 26 (21-32) mmol/L Anion Gap 6 (3-11) BUN 38 H (6-23) mg/dl Creatinine 1.82 H (0.6-1.4) mg/dl Est Cr Clr Drug Dosing 36.2 ml/min Est GFR ( Amer) 38.7 ml/min Est GFR (Non-Af Amer) 33.4 ml/min BUN/Creatinine Ratio 20.9 H (10-20) Glucose 182 H (70-99(Fasting)) mg/dl Lactate 1.8 (0.4-2.0) mmol/L Calcium 9.0 (8.6-10.3) mg/dl Total Bilirubin 6.3 H (0.2-1.0) mg/dl Direct Bilirubin 4.4 H (0-0.2) mg/dl AST 234 H (13-39) U/L ALT 155 H (7-52) U/L Alkaline Phosphatase 630 H (34-104) U/L Troponin I High Sens 12.0 (0-20) pg/ml Total Protein 7.3 (6.0-8.3) gm/dl Albumin 3.2 L (3.4-5.0) gm/dl Globulin 4.1 H (2.5-4.0) gm/dl Albumin/Globulin Ratio 0.8 L (0.9-2) Lipase 90 H (11-82) U/L Administered Medications Discontinued Medications Ioversol (Optiray 320 500ml) 89 ml IV ONCE ONE Stop: 08/27/23 15:49 Last Admin: 08/27/23 15:49 Dose: 89 ml Documented By: JOHANA Morphine Sulfate (Morphine Sulfate 4 Mg/Ml 1 Ml Carp\Vial) 4 mg IV NOW STA Stop: 08/27/23 17:51 Last Admin: 08/27/23 17:56 Dose: 4 mg Documented By: ALFRED Ondansetron HCl (Ondansetron Inj 2 Mg/Ml 2 Ml Vial) 4 mg IV NOW STA Stop: 08/27/23 13:39 Last Admin: 08/27/23 14:07 Dose: 4 mg Documented By: AKIN Imaging Data My Impression: CT of the abdomen and pelvis was obtained in the emergency department. My interpretation is no free air or signs of bowel obstruction, final report below. 1 view chest x-ray was obtained in the emergency department. My interpretation is no free air, there is no definite infiltrate, final report below. Radiologist's Impression: Abdomen/Pelvis CT 08/27/23 13:[address] WITH IV CONTRAST CT DOSE: 1397.26 mGy.cm HISTORY: left sided abd pain TECHNIQUE: Multiaxial CT images of the abdomen and pelvis were performed following the use of intravenous contrast. A dose lowering technique was utilized adhering to the principles of ALARA. COMPARISON STUDY: None. FINDINGS: Bibasilar linear densities favor subsegmental atelectasis or scarring. There are small bilateral pleural effusions. Calcified right hilar lymph nodes. Aortic valve prosthesis is noted. Severe coronary artery calcifications are present. No pneumoperitoneum. No pneumatosis. There are poststernotomy changes. No acute fractures. Nodular contour to the liver consistent with cirrhosis. The main portal vein is patent. Questionable 2.7 cm hypodense lesion within the right hepatic lobe on image 66. The spleen is top normal in size. There are punctate calcified splenic granulomas. No gallbladder wall thickening. Small amount of sludge/stones layering within the gallbladder. There is mild periportal/periprosthetic inflammatory change/edema. Trace perihepatic and perisplenic ascites is noted. The pancreas and adrenal glands are unremarkable. Bilateral renal cysts including a dominant 6.8 cm right parapelvic cyst. No hydronephrosis. Mild bilateral perinephric edema. This is likely chronic. Calcified plaque within the normal caliber abdominal aorta. No retroperitoneal or pelvic lymphadenopathy. No pelvic free fluid. The prostate gland is enlarged. Bladder wall thickening is likely due to chronic outlet obstruction from the enlarged prostate gland. A few bladder diverticula measuring up to 3.4 cm. Colonic diverticulosis. No evidence for acute diverticulitis. No bowel wall thickening or obstruction. Normal appendix. IMPRESSION: 1. No bowel wall thickening or obstruction. 2. Normal appendix. 3. Trace ascites. 4. Small bilateral pleural effusions. 5. Cirrhotic liver with a possible 2.7 cm lesion within the right hepatic lobe. Follow-up nonemergent dedicated liver MRI recommended for further evaluation. 6. Mild periportal and pericholecystic inflammatory change/edema. This is likely due to the patient's cirrhosis. An acute cholecystitis is considered less likely given the lack of gallbladder wall thickening but not entirely excluded. Follow- up abdominal ultrasound can be performed if the patient is complaining of right upper quadrant pain. 7. Additional findings as described above. ACT 112: Positive. There are findings on this exam that require communication between the performing entity and the patient following Patient Test Result Information Act ([place] Act 112) guidelines. Electronically signed by: Mehrdad Sanches M.D. 08/27/2023 4:38 PM Chest X-Ray 08/27/23 13:38 XR chest 1V portable HISTORY: 82 years-old Male sob acute shortness of breath COMPARISON: 12/14/2022 TECHNIQUE: AP view the chest FINDINGS: Cardiac silhouette is enlarged. Median sternotomy. No pneumothorax. Layering pleural effusions with dependent bibasilar consolidation, right greater than left. Pulmonary vascular congestion. Bones appear grossly intact. IMPRESSION: 1. Cardiomegaly with pulmonary vascular congestion. 2. Layering pleural effusions with bibasilar consolidation. ACT 112: Negative or not required by law. The above report was generated using voice recognition software. It may contain grammatical, syntax or spelling errors. Electronically signed by: Venkata Dye M.D. 08/27/2023 2:43 PM Discharge Plan Visit Data Chief Complaint: Flank Pain Stated Complaint: side pain ED Provider: Ronnie Marie Discharge Problem: Abdominal pain, Thrombocytopenia, Cirrhosis of liver, Abnormal LFTs Patient Disposition: Being Evaluated by Hospitalist Forms Stand Alone Forms: My [facility] Prescriptions Prescriptions: No Action aspirin [Adult Low Dose Aspirin] 81 mg tablet,delayed release (DR/EC) 81 mg PO DAILY allopurinol 100 mg tablet 100 mg PO DAILY atorvastatin 40 mg tablet 40 mg PO DAILY cholecalciferol (vitamin D3) [Vitamin D3] 25 mcg (1,000 unit) Capsule 25 mcg PO DAILY thiamine HCl (vitamin B1) 100 mg Tablet 100 mg PO DAILY Rx Instructions: Patient unable to verify OTC medications at this date/time. cyanocobalamin (vitamin B-12) 500 mcg Tablet 500 mcg PO DAILY Rx Instructions: Patient unable to verify OTC medications at this date/time. furosemide 40 mg Tablet 40 mg PO QAM Qty: 30 1RF acetaminophen 325 mg Capsule 650 mg PO QID PRN (Reason: Pain) Rx Instructions: Patient unable to verify OTC medications at this date/time. folic acid 0.8 mg Capsule 0.8 mg PO DAILY Rx Instructions: Patient unable to verify OTC medications at this date/time. pantoprazole 40 mg Tablet,Delayed Release (Dr/Ec) 40 mg PO BID Qty: 60 2RF clopidogrel 75 mg tablet 75 mg PO QAM hydralazine 10 mg tablet 5 mg PO BID carvedilol 3.125 mg tablet 1.5625 mg PO BID Rx Instructions: Take 1/2 tab twice a day Referrals Referrals: Nick Edwards MD [Primary Care Provider] - Discharge Problem: Abdominal pain Qualifiers: Abdominal location: generalized Qualified Code(s): R10.84 - Generalized abdominal pain Cirrhosis of liver Qualifiers: Hepatic cirrhosis type: unspecified hepatic cirrhosis Ascites presence: u nspecified Qualified Code(s): K74.60 - Unspecified cirrhosis of liver
[2023-08-27] MEDS: ONDANSETRON INJ 2 MG/ML 2 ML VIAL IV STA (14:07)
[2023-08-27 14:20] LABS: Basophils # (auto) 0.03 K/uL (0.00-0.20); Basophils % (auto) 0.5 %; Eosinophils # (auto) 0.12 K/uL (0.00-0.50); Eosinophils % (auto) 2.1 %; Hemoglobin 10.9 g/dl (14.0-18.0); Immature Granulocytes # (auto) 0.02 K/uL (0.01-0.20); Immature Granulocytes % (auto) 0.3 %; Lymphocytes # (auto) 0.78 K/uL (1.20-3.40); Lymphocytes % (auto) 13.3 %; Mean Corpuscular Hemoglobin 31.6 pg (25.0-34.0); Mean Corpuscular Volume 95.7 fL (80.0-100.0); Mean Platelet Volume 10.4 fL (9.4-12.4); Monocytes # (auto) 0.52 K/uL (0.11-0.59); Monocytes % (auto) 8.9 %; Neutrophils # (auto) 4.38 K/uL (1.40-6.50); Neutrophils % (auto) 74.9 %; Platelet Count 77 K/uL (130-400); RDW Coefficient of Variation 14.6 % (11.5-14.5); RDW Standard Deviation 50.5 fL (36.4-46.3); Red Blood Count 3.45 M/uL (4.70-6.10); White Blood Count 5.85 K/ul (4.8-10.8)
[2023-08-27 14:35] LABS: Albumin Globulin Ratio 0.8 (0.9-2); Albumin Level 3.2 gm/dl (3.4-5.0); BUN Creatinine Ratio 20.9 (10-20); Bilirubin,Total 6.3 mg/dl (0.2-1.0); Creatinine Clr Calc Pharmacy 36.2 ml/min; Est GFR (African American) 38.7 ml/min; Est GFR (Non-African American) 33.4 ml/min; Globulin 4.1 gm/dl (2.5-4.0); Potassium 4.4 mmol/L (3.5-5.1); Total Protein 7.3 gm/dl (6.0-8.3)
--- NOTE | 2023-08-27 14:45 | XRay Report ---
XR chest 1V portable HISTORY: 82 years-old Male sob acute shortness of breath COMPARISON: 12/14/2022 TECHNIQUE: AP view the chest FINDINGS: Cardiac silhouette is enlarged. Median sternotomy. No pneumothorax. Layering pleural effusions with d ependent bibasilar consolidation, right greater than left. Pulmonary vascular congestion. Bones appea r grossly intact. IMPRESSION: 1. Cardiomegaly with pulmonary vascular congestion. 2. Layering pleural effusions with bibasilar consolidation. ACT 112: Negative or not required by law. The above report was generated using voice recognition software. It may contain grammatical, syntax o r spelling errors. Electronically signed by: Venkata Dye M.D. 08/27/2023 2:43 PM
[2023-08-27 14:46] LABS: INR 1.1 (0.9-1.1); Partial Thromboplastin Ratio 1.1; Partial Thromboplastin Time 30 Seconds (21-31); Prothrombin Time 12.4 Seconds (9.0-12.0)
--- NOTE | 2023-08-27 15:26 | Electrocardiogram Report ---
Test Reason : Blood Pressure : / mmHG Vent. Rate : 072 BPM Atrial Rate : 000 BPM P-R Int : 000 ms QRS Dur : 084 ms QT Int : 412 ms P-R-T Axes : 000 043 045 degrees QTc Int : 451 ms Atrial fibrillation with premature ventricular or aberrantly conducted complexes Abnormal ECG When compared with ECG of 14-DEC-2022 19:57, Borderline criteria for Anterior infarct are now Present Nonspecific T wave abnormality no longer evident in Inferior leads QT has lengthened Confirmed by Amari Damico ([id number]) on 08/27/2023 3:26:29 PM Referred By: Confirmed By:Keagan Damico
[2023-08-27] MEDS: OPTIRAY 320 500ml IV ONE (15:49)
[2023-08-27 16:00] LABS: Bilirubin Direct 4.4 mg/dl (0-0.2)
--- NOTE | 2023-08-27 16:40 | CT Scan Report ---
ABDOMEN AND PELVIS CT WITH IV CONTRAST CT DOSE: 1397.26 mGy.cm HISTORY: left sided abd pain TECHNIQUE: Multiaxial CT images of the abdomen and pelvis were performed following the use of intrave nous contrast. A dose lowering technique was utilized adhering to the principles of ALARA. COMPARISON STUDY: None. FINDINGS: Bibasilar linear densities favor subsegmental atelectasis or scarring. There are small bila teral pleural effusions. Calcified right hilar lymph nodes. Aortic valve prosthesis is noted. Severe coronary artery calcifications are present. No pneumoperitoneum. No pneumatosis. There are poststerno sierra changes. No acute fractures. Nodular contour to the liver consistent with cirrhosis. The main po rtal vein is patent. Questionable 2.7 cm hypodense lesion within the right hepatic lobe on image 66. The spleen is top normal in size. There are punctate calcified splenic granulomas. No gallbladder wal l thickening. Small amount of sludge/stones layering within the gallbladder. There is mild periportal /periprosthetic inflammatory change/edema. Trace perihepatic and perisplenic ascites is noted. The pa ncreas and adrenal glands are unremarkable. Bilateral renal cysts including a dominant 6.8 cm right p arapelvic cyst. No hydronephrosis. Mild bilateral perinephric edema. This is likely chronic. Calcifie d plaque within the normal caliber abdominal aorta. No retroperitoneal or pelvic lymphadenopathy. No pelvic free fluid. The prostate gland is enlarged. Bladder wall thickening is likely due to chronic o utlet obstruction from the enlarged prostate gland. A few bladder diverticula measuring up to 3.4 cm. Colonic diverticulosis. No evidence for acute diverticulitis. No bowel wall thickening or obstructio n. Normal appendix. IMPRESSION: 1. No bowel wall thickening or obstruction. 2. Normal appendix. 3. Trace ascites. 4. Small bilateral pleural effusions. 5. Cirrhotic liver with a possible 2.7 cm lesion within the right hepatic lobe. Follow-up nonemergent dedicated liver MRI recommended for further evaluation. 6. Mild periportal and pericholecystic inflammatory change/edema. This is likely due to the patient's cirrhosis. An acute cholecystitis is considered less likely given the lack of gallbladder wall thick ening but not entirely excluded. Follow-up abdominal ultrasound can be performed if the patient is co mplaining of right upper quadrant pain. 7. Additional findings as described above. ACT 112: Positive. There are findings on this exam that require communication between the performing entity and the patient following Patient Test Result [place] Act [place] Act 112) guidelines. Electronically signed by: Mehrdad Sanches M.D. 08/27/2023 4:38 PM
[2023-08-27] MEDS: MoRPHine SULFATE 4 MG/ML 1 ML CARP\\VIAL IV STA (17:56)
[2023-08-27 18:15] LABS: Appearance Urine Clear (Clear); Bacteria Urine Automated Negative (Negative); Blood Urine Negative (Negative); Cast Urine Automated 0 /lpf (0-5); Color Urine Dark Yellow; Epithelial Cell Urine Auto 0-5 /lpf (0-5); Glucose Urine UA Negative (Negative); Ketones Urine Negative (Negative); Leukocyte Esterase Urine Negative (Negative); Nitrite Urine Negative (Negative); Protein Urine 1+ (Negative); RBC Urine Automated 0-4 /hpf (0-4); Specific Gravity Urine 1.034 (1.000-1.030); Urobilinogen Urine Negative (Negative)
--- NOTE | 2023-08-27 18:17 | History & Physical Report ---
Date of Service August 27, 2023 Assessment & Plan (1) Transaminitis: (2) Hyperbilirubinemia: (3) Cirrhosis of liver: (4) Abdominal pain: (5) Atrial fibrillation: (6) Diabetes: (7) SANDI on CPAP: Plan This is an 82 yr old M who has a significant PMH of Chronic Atrial fib not on oral anticoagulation due to hx of GIB, T2DM, HTN, HLD, Aortic Valve stenosis s/p TAVR, SANDI on cpap, DE LA CRUZ cirrhosis, hx of alcohol abuse, CKD-3 baseline cr 1.8-2 who presents to ED 2/2 abdominal pain x 2-3 days. Transaminitis Hyperbilirubinemia Cirrhosis of liver Abdominal pain admit to tele ? alcoholic hepatitis vs cholecystitis vs pancreatitis vs decompensated cir rhosis obtain RUQ US consult GI will keep NPO for now IV lasix 40mg x 1 IV ceftriaxone, flagyl gentle IVF x 1 L while NPO MELD 21 repeat LFTS, lipase, PT/INR in a.m. pt follows with hepatology for DE LA CRUZ abd CT: 2.7 R hepatic lobe lesion -- will need outpatient follow up Hx of alcohol abuse awss protocol folic acid, thiamine Anemia Thrombocytopenia cts stable chronic Chronic atrial fib s/p TAVR HTN HLD chronic, stable not on OAC 2/2 hx of GIB pt has stenosis of prosthetic aortic valve with unsuccessful attempt at basilica, on DAPT x 1 year from 04/21/23 continue asa, plavix, coreg, hydralazine hold statin given transaminitis daily weights, strict intake/output T2DM last a1c 6.0 04/2023 repeat a1c in a.m. novolog per protocol SANDI Cpap at HS CKD-3 baseline cr 1.8-2 chronic, stable monitor closely, avoid nephrotoxic agents DVT ppx: SCDS for now, on DAPT with hx of gib FULL CODE PCP: Grace Dispo: admit to PCU Pt was seen and examined in collaboration with Dr. Prieto, please see addendum A total of 82 minutes was spent coordinating, documenting, and providing care for this patient excluding time spent in the performance of separately billed services. This included personally viewing all current laboratories and imaging studies, medication reconciliation, outpatient chart review, and discussion with specialists. History of Present Illness Chief Complaint: Abdominal pain x 2-3 days. Primary Care Provider: Nick Edwards MD This is an 82 yr old M who has a significant PMH of Chronic Atrial fib not on oral anticoagulation due to hx of GIB, T2DM, HTN, HLD, Aortic Valve stenosis s/p TAVR, SANDI on cpap, DE LA CRUZ cirrhosis, hx of alcohol abuse, CKD-3 baseline cr 1.8-2 who presents to ED 2/2 abdominal pain x 2-3 days. He states he has been having abd pain in the belly button region that has been coming and going the last 2-3 days. He thought maybe this was attributed to pills he was taking so he stopped taking some. He hasn't been able to eat/drink much the past few days due to pain. He feels his abdomen has been getting more full. He is prescribed lasix but is only taking it as needed. Last time he took a dose was 3 days ago. He denies any lower extremity swelling. He is moving bowels and urinating normally. He feels he is urinating less frequently today due to not taking his, "water pill." He denies any prior hx of alcohol withdrawal. His last drink was 2-3 days ago. He suspects he needs to stop drinking alcohol. He denies any f/c/s, chest pain, sob at rest, cough, uri sx, n/v, hematemesis, melena or hematochezia. He denies any recent medication changes. In ED patient remained hemodynamically stable although mildly hypertensive. Lab work notable for significant transaminitis with a total bilirubin of 6.3, direct bilirubin 4.4, AST 234, ALT 155, alk phos 630, lipase 90, ammonia and alcohol level WNL. Chest x-ray revealed cardiomegaly with pulmonary vascular congestion, layering pleural effusions with bibasilar consolidation. CT abd/pelvis revealed Trace ascites, small b/l pleural effusions, cirrhotic liver with possible 2.7 Cm lesion of right hepatic lobe, ? mild periportal and pericholecystic inflammatory change/edema. Allergies Allergy/AdvReac Type Severity Reaction Status Date / Time felodipine Allergy Intermediate HIVES Verified 08/27/23 17:27 empagliflozin Allergy Unknown On file w/ Unverified 08/27/23 17:27 [From Jardiance] [facility] pharmacy, reaction unknown Home Medications Medication Instructions Recorded Confirmed Type aspirin 81 mg tablet,delayed 81 mg PO DAILY 05/19/19 08/27/23 History release (Adult Low Dose Aspirin) allopurinol 100 mg tablet 100 mg PO DAILY 02/24/20 08/27/23 History atorvastatin 40 mg tablet 40 mg PO DAILY 02/24/20 08/27/23 History cholecalciferol (vitamin D3) 25 25 mcg PO DAILY 03/21/20 08/27/23 History mcg (1,000 unit) capsule (Vitamin D3) cyanocobalamin (vitamin B-12) 500 500 mcg PO DAILY 03/21/20 08/27/23 History mcg tablet thiamine HCl (vitamin B1) 100 mg 100 mg PO DAILY 03/21/20 08/27/23 History tablet acetaminophen 325 mg capsule 650 mg PO QID PRN Pain 05/26/22 08/27/23 History folic acid 0.8 mg capsule 0.8 mg PO DAILY 05/26/22 08/27/23 History furosemide 40 mg tablet 40 mg PO QAM #30 tabs 11/09/22 08/27/23 Rx pantoprazole 40 mg tablet,delayed 40 mg PO BID #60 tabs 12/17/22 08/27/23 Rx release carvedilol 3.125 mg tablet 1.5625 mg PO BID 08/27/23 08/27/23 History clopidogrel 75 mg tablet 75 mg PO QAM 08/27/23 08/27/23 History hydralazine 10 mg tablet 5 mg PO BID 08/27/23 08/27/23 History Past Med/Surg History Medical History Chronic deep vein thrombosis (DVT) Sleep apnea with use of continuous positive airway pressure (CPAP) Hypoxemia Recurrent spontaneous pneumothorax SANDI on CPAP CKD (chronic kidney disease) stage 3, GFR 30-59 ml/min Vitamin D deficiency Steatohepatitis, non-alcoholic HLD (hyperlipidemia) Psoriasis Diabetes Surgical History History of colonoscopy History of hernia repair Rupture quadriceps tendon History of aortic valve replacement Family History Brother Heart disease CABG 2014 Father , 61 COPD (chronic obstructive pulmonary disease) Social History Smoking Status: Never smoker Do You Dip or Chew Tobacco: No; Hx Alcohol Use: Yes Alcohol type: beer and wine Hx Substance Use: No Preferred Language: Mauritian 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: Effective Sulfonator Operator Required: No Beliefs That Will Affect Care: None marital status: Current Living Situation: Spouse Feels Safe at Home: Yes Assistive Devices: CPAP Review of Systems Review of Systems: All systems reviewed & are unremarkable except as noted in HPI & below Physical Exam Physical Exam: please refer to Dr. Prieto addendum for physical exam findings. Results & Data Results & Data Vital Signs (Past 12 Hours) Vital Signs Temp Pulse Resp BP Pulse Ox O2 Del Method 08/27/23 16:00 83 16 172/110 H 98 Room Air 08/27/23 15:00 70 20 181/80 H 96 Room Air 08/27/23 14:35 76 08/27/23 14:34 62 24 181/80 H 98 08/27/23 14:07 64 12 98 Room Air 08/27/23 13:20 36.3 C L 82 18 98 Room Air Laboratory Results I have independently reviewed and interpreted patient's admitting labs including CBC, CMP, PTT, PT/INR, lactic acid, lipase, and troponin. Diagnostic Findings Abdomen/Pelvis CT 08/27/23 13:[address] WITH IV CONTRAST CT DOSE: 1397.26 mGy.cm HISTORY: left sided abd pain TECHNIQUE: Multiaxial CT images of the abdomen and pelvis were performed following the use of intravenous contrast. A dose lowering technique was utilized adhering to the principles of ALARA. COMPARISON STUDY: None. FINDINGS: Bibasilar linear densities favor subsegmental atelectasis or scarring. There are small bilateral pleural effusions. Calcified right hilar lymph nodes. Aortic valve prosthesis is noted. Severe coronary artery calcifications are present. No pneumoperitoneum. No pneumatosis. There are poststernotomy changes. No acute fractures. Nodular contour to the liver consistent with cirrhosis. The main portal vein is patent. Questionable 2.7 cm hypodense lesion within the right hepatic lobe on image 66. The spleen is top normal in size. There are pu nctate calcified splenic granulomas. No gallbladder wall thickening. Small amount of sludge/stones layering within the gallbladder. There is mild periportal/periprosthetic inflammatory change/edema. Trace perihepatic and perisplenic ascites is noted. The pancreas and adrenal glands are unremarkable. Bilateral renal cysts including a dominant 6.8 cm right parapelvic cyst. No hydronephrosis. Mild bilateral perinephric edema. This is likely chronic. Calcified plaque within the normal caliber abdominal aorta. No retroperitoneal or pelvic lymphadenopathy. No pelvic free fluid. The prostate gland is enlarged. Bladder wall thickening is likely due to chronic outlet obstruction from the enlarged prostate gland. A few bladder diverticula measuring up to 3.4 cm. Colonic diverticulosis. No evidence for acute diverticulitis. No bowel wall thickening or obstruction. Normal appendix. IMPRESSION: 1. No bowel wall thickening or obstruction. 2. Normal appendix. 3. Trace ascites. 4. Small bilateral pleural effusions. 5. Cirrhotic liver with a possible 2.7 cm lesion within the right hepatic lobe. Follow-up nonemergent dedicated liver MRI recommended for further evaluation. 6. Mild periportal and pericholecystic inflammatory change/edema. This is likely due to the patient's cirrhosis. An acute cholecystitis is considered less likely given the lack of gallbladder wall thickening but not entirely excluded. Follow- up abdominal ultrasound can be performed if the patient is complaining of right upper quadrant pain. 7. Additional findings as described above. ACT 112: Positive. There are findings on this exam that require communication between the performing entity and the patient following Patient Test Result Information Act ([place] Act 112) guidelines. Electronically signed by: Mehrdad Sanches M.D. 08/27/2023 4:38 PM Chest X-Ray 08/27/23 13:38 XR chest 1V portable HISTORY: 82 years-old Male sob acute shortness of breath COMPARISON: 12/14/2022 TECHNIQUE: AP view the chest FINDINGS: Cardiac silhouette is enlarged. Median sternotomy. No pneumothorax. Layering pleural effusions with dependent bibasilar consolidation, right greater than left. Pulmonary vascular congestion. Bones appear grossly intact. IMPRESSION: 1. Cardiomegaly with pulmonary vascular congestion. 2. Layering pleural effusions with bibasilar consolidation. ACT 112: Negative or not required by law. The above report was generated using voice recognition software. It may contain grammatical, syntax or spelling errors. Electronically signed by: Venkata Dye M.D. 08/27/2023 2:43 PM Medications Administered Medication List Discontinued Medications Ioversol (Optiray 320 500ml) 89 ml IV ONCE ONE Stop: 08/27/23 15:49 Last Admin: 08/27/23 15:49 Dose: 89 ml Documented By: JOHANA Morphine Sulfate (Morphine Sulfate 4 Mg/Ml 1 Ml Carp\\Vial) 4 mg IV NOW STA Stop: 08/27/23 17:51 Last Admin: 08/27/23 17:56 Dose: 4 mg Documented By: ALFRED Ondansetron HCl (Ondansetron Inj 2 Mg/Ml 2 Ml Vial) 4 mg IV NOW STA Stop: 08/27/23 13:39 Last Admin: 08/27/23 14:07 Dose: 4 mg Documented By: AKIN ECG Additional Comments: I have independently reviewed and interpreted patient's admitting EKG which revealed: 72 afib COVID-19 Results Results COVID-19 Adm Lab Results: RBC 3.45 M/uL (4.70-6.10) L 08/27/23 WBC 5.85 K/ul (4.8-10.8) 08/27/23 Hgb 10.9 g/dl (14.0-18.0) L 08/27/23 Hct 33.0 % (42.0-52.0) L 08/27/23 Plt Count 77 K/uL (130-400) L 08/27/23 Neutrophils (%) (Auto) 74.9 % 08/27/23 Lymphocytes (%) (Auto) 13.3 % 08/27/23 Monocytes # (Auto) 0.52 K/uL (0.11-0.59) 08/27/23 Eosinophils # (Auto) 0.12 K/uL (0.00-0.50) 08/27/23 Immature Granulocyte % (Auto) 0.3 % 08/27/23 Neutrophils # (Auto) 4.38 K/uL (1.40-6.50) 08/27/23 Lymphocytes # (Auto) 0.78 K/uL (1.20-3.40) L 08/27/23 Monocytes # (Auto) 0.52 K/uL (0.11-0.59) 08/27/23 Eosinophils # (Auto) 0.12 K/uL (0.00-0.50) 08/27/23 Basophils # (Auto) 0.03 K/uL (0.00-0.20) 08/27/23 Immature Granulocyte # (Auto) 0.02 K/uL (0.01-0.20) 4 Na 136 mmol/L (136-145) 08/27/23 K 4.4 mmol/L (3.5-5.1) 08/27/23 Cl 104 mmol/L (98-107) 08/27/23 CO2 26 mmol/L (21-32) 08/27/23 Anion Gap 6 (3-11) 08/27/23 BUN 38 mg/dl (6-23) H 08/27/23 Creatinine 1.82 mg/dl (0.6-1.4) H 08/27/23 BUN/Creatinine Ratio 20.9 (10-20) H 08/27/23 Glucose Level 182 mg/dl (70-99(Fasting)) H 08/27/23 Ca 9.0 mg/dl (8.6-10.3) 08/27/23 Total Bilirubin 6.3 mg/dl (0.2-1.0) H 08/27/23 Direct Bilirubin 4.4 mg/dl (0-0.2) H 08/27/23 AST/SGOT 234 U/L (13-39) H 08/27/23 ALT/SGPT 155 U/L (7-52) H 08/27/23 Alkaline Phosphatase 630 U/L (34-104) H 08/27/23 Total Protein 7.3 gm/dl (6.0-8.3) 08/27/23 Albumin 3.2 gm/dl (3.4-5.0) L 08/27/23 Globulin 4.1 gm/dl (2.5-4.0) H 08/27/23 Albumin/Globulin Ratio 0.8 (0.9-2) L 08/27/23 PTT 30 Seconds (21-31) 08/27/23 INR 1.1 (0.9-1.1) 08/27/23 Chest X-Ray 08/27/23 Code Status & VTE Plan Code Status FULL CODE VTE Prophylaxis Plan VTE Prophylaxis will be ordered: Yes Supervising Physician Co-Signing Physician Notes I have seen and discussed the case with the collaborating MICHELLE. I agree with the above H&P. I have reviewed and confirmed the patients medical history, the findings on physical examination, and the patients diagnosis and treatment plan with Anna MARTINEZ and agree with the information documented. In short, Mr. Davidson is an 82 yr old M who has a significant PMH of Chronic Atrial fib not on oral anticoagulation due to hx of GIB, T2DM, HTN, HLD, Aortic Valve stenosis s/p TAVR, SANDI on cpap, DE LA CRUZ cirrhosis,ongoing alcohol abuse, CKD- 3 baseline cr 1.8-2 who is admitted for evaluation of abdominal pain and transaminitis. Patient is actively drinking and cannot quantify amount, but "enough." Last drink 2-3 days ago. Poor appetite, dull aching supraumbilical/epigastric pain. No fevers. Nausea+, no vomiting. Denies withdrawal. Reports abdominal bloating intermittently. GENERAL APPEARANCE: AxOx4 slightly disheveled gentleman, pleasant HEENT: NC, AT. MMM. ++sleral icterus NECK: Supple without lymphadenopathy. No stiffness or restricted ROM. HEART: Normal rate and regular rhythm, normal S1/S1, no m/r/g LUNGS: CTAB, moving air well. No crackles or wheezes are heard. ABDOMEN: Soft,distended, palpable hepatomegaly, nontender, no fluid shift, deep discomfort supraumbilical area EXTREMITIES: 2+ pitting edema just to knee, no tremors noted NEUROLOGICAL: Grossly nonfocal. Alert and oriented, moving all 4 extremities. CN not formally tested but appear grossly intact Skin: jaundice #Abdominal pain #Transaminitis ?alcoholic hepatitis, cholecystitis given pericholic inflammation, early pancreatitis lipase, PUD given history of ulcers -Differential in active drinking patient with cirrhosis is broad -Abdominal US to better assess pancreas -Trend lipase for pancreatitis -Trend LFTs -Plan for GI consult -NPO, gentle IVF -CTX, flagyl empirically #Alcohol use -last drink 2-3 days ago AWSS, tele #Cirrhosis 2/2 EtOH decompensated - History of decompensation: no - MELD-Na:21 on admission - Last EGD 12/2022, no EV -Coag: INR 1.1, platelets 77 - PSE: Denies h/o HE, no evidence of HE on exam, ctm -ammonia 33 - Ascites: hold lasix, one time IV lasix 40mg +gentle fluids 2/2 NPO -Trace, no signs of wave - SBP: c/w Rocephin, low suspicion - EV: no prior EV, No evidence of GIB presently, close monitoring - on pantoprazole BID (prior ulcer) for PPx at home, will continue - HRS: Cr at baseline - Daily CMP + INR to calculate MELD - GI consult #Post TAVR stenosis of aortic valve on DAPT -Stable hgb Rest of plan as above I have reviewed the advanced practitioner's documentation, and I agree with, and take responsibility for the plan of care I spent a total of 45 minutes coordinating, documenting, and providing care for this patient excluding time spent in the performance of separately billed services. All of the aforementioned completed outside of collaborating with the assigned advanced practitioner for a full treatment plan. Please see their addendum for further details. (3) Cirrhosis of liver Ascites presence: unspecified Hepatic cirrhosis type: unspecified hepatic cirrhosis Qualified Code(s): K74.60 - Unspecified cirrhosis of liver (4) Abdominal pain Abdominal location: generalized Qualified Code(s): R10.84 - Generalized abdominal pain
[2023-08-27 18:31] LABS: Bilirubin Urine 1+ (Negative)
[2023-08-27] MEDS: FUROSEMIDE 40 MG/4 ML VIAL IV STA (19:29)
--- NOTE | 2023-08-27 20:20 | Ultrasound Report ---
Exam(s): US ABDOMEN LIMITED EXAM: US Abdomen Limited, Right Upper Quadrant CLINICAL HISTORY: Reason for exam: eval for cholecystitis. TECHNIQUE: Real-time ultrasound of the right upper quadrant with image documentation. COMPARISON: No number 25/08/2021 and June 16, 2008, CT from August 27, 2023. FINDINGS: Liver: The liver measures 16.2 cm with possible mild fatty infiltration. No focal liver lesion is seen. The portal vein is patent with normal hepatopetal flow. No intrahepatic bile duct dilation. Gallbladder: The gallbladder is contracted. The wall is thickened measuring 4 mm. No gallstones or surrounding fluid identified. Common bile duct: Unremarkable as visualized. No stones. No dilation. Pancreas: The pancreas is obscured by bowel gas. Right kidney: The right kidney measures 12.2 cm with mild atrophy. There is a 8.5 x 4.2 x 6.1 cm cystic structure adjacent to the mid to lower right kidney which appears more likely to represent a parapelvic cyst and then hydronephrosis. No stones. Free fluid: There is a trace amount of ascites adjacent to the inferior margin of the liver. Pleural space: There is a small right pleural effusion. IMPRESSION: 1. The right kidney measures 12.2 cm with mild atrophy. There is a 8.5 x 4.2 x 6.1 cm cystic structure adjacent to the mid to lower right kidney which appears more likely to represent a parapelvic cyst and then hydronephrosis. 2. The gallbladder is contracted. The wall is thickened measuring 4 mm. No gallstones or surrounding fluid identified. 3. Electronically signed by: Salty Ennis MD 08/27/23 20:19 PM
[2023-08-27] MEDS ORDERED: POLYETHYLENE (MIRALAX) 17 GM PACK PO PRN (20:56)
[2023-08-27] MEDS ORDERED: CARBOHYDRATES FOR HYPOGLYCEMIA PO PRN (20:56)
[2023-08-27] MEDS ORDERED: GLUCOSE 10 TAB/TUBE PO PRN (20:56)
[2023-08-27] MEDS ORDERED: LORazepam 1 MG in SYRINGE 0.5 ML IV PRN (20:56)
[2023-08-27] MEDS ORDERED: ONDANSETRON INJ 2 MG/ML 2 ML VIAL IV PRN (20:56)
[2023-08-27] MEDS ORDERED: GLUCAGON FOR INJ 1 MG VIAL SQ PRN (20:56)
[2023-08-27] MEDS ORDERED: DEXTROSE 50% 50 ML SYRINGE IV PRN (20:56)
[2023-08-27] MEDS ORDERED: GLUCOSE 40% GEL 15 GM TUBE PO PRN (20:56)
[2023-08-27] MEDS ORDERED: PANTOprazole 40 MG TAB PO SCH (21:00)
[2023-08-27] MEDS: carvediloL 3.125 MG TAB PO SCH (21:39)
[2023-08-27] MEDS: hydrALAZINE 10 MG TAB PO SCH (21:43)
[2023-08-27] MEDS: PANTOprazole 40 MG TAB PO SCH (21:44)
[2023-08-27] MEDS: cefTRIAXone SODIUM 2,000 MG in DEXTROSE 5 % MINI-B 50 ML IV SCH (21:46)
[2023-08-27] MEDS: SODIUM CHLORIDE 0.9% 1,000 ML IV SCH (21:46)
[2023-08-27] MEDS: INSULIN ASPART PER UNIT CHARGE SC SCH (22:20)
[2023-08-27] MEDS: HYDROmorphone INJ 0.5 MG/0.5 ML SYR IV PRN (22:22)
[2023-08-27] MEDS: metroNIDAZOLE 500 MG/100 ML BAG IV SCH (22:22)
[2023-08-28 06:25] LABS: Basophils # (auto) 0.02 K/uL (0.00-0.20); Basophils % (auto) 0.4 %; Eosinophils # (auto) 0.14 K/uL (0.00-0.50); Eosinophils % (auto) 2.6 %; Hematocrit (blood only) 30.1 % (42.0-52.0); Hemoglobin 9.9 g/dl (14.0-18.0); Immature Granulocytes # (auto) 0.02 K/uL (0.01-0.20); Immature Granulocytes % (auto) 0.4 %; Lymphocytes # (auto) 0.74 K/uL (1.20-3.40); Lymphocytes % (auto) 13.5 %; Mean Corpuscular Hemoglobin 31.2 pg (25.0-34.0); Mean Corpuscular Hgb Conc 32.9 g/dL (32.0-36.0); Monocytes % (auto) 10.9 %; Neutrophils # (auto) 3.97 K/uL (1.40-6.50); Neutrophils % (auto) 72.2 %; Platelet Count 72 K/uL (130-400); RDW Coefficient of Variation 14.5 % (11.5-14.5); RDW Standard Deviation 49.7 fL (36.4-46.3); Red Blood Count 3.17 M/uL (4.70-6.10); White Blood Count 5.49 K/ul (4.8-10.8)
[2023-08-28 06:41] LABS: INR 1.2 (0.9-1.1); Prothrombin Time 13.3 Seconds (9.0-12.0)
[2023-08-28 06:45] LABS: Albumin Globulin Ratio 0.8 (0.9-2); Albumin Level 2.9 gm/dl (3.4-5.0); Calcium 8.6 mg/dl (8.6-10.3); Creatinine Clr Calc Pharmacy 36.3 ml/min; Est GFR (African American) 38.9 ml/min; Est GFR (Non-African American) 33.6 ml/min; Globulin 3.5 gm/dl (2.5-4.0); Magnesium 1.5 mg/dl (1.7-2.4); Potassium 4.1 mmol/L (3.5-5.1); Total Protein 6.4 gm/dl (6.0-8.3)
[2023-08-28 07:11] LABS: Estimated Average Glucose 111 mg/dl; Hemoglobin A1C 5.5 % (4.5-5.6)
[2023-08-28] MEDS: CLOPIDOGREL BISULFATE 75 MG TAB PO SCH (08:12)
[2023-08-28] MEDS: allopurinoL 100 MG TAB PO SCH (08:12)
[2023-08-28] MEDS: FOLIC ACID 1 MG TAB PO SCH (08:12)
[2023-08-28] MEDS: THIAMINE HCL 100 MG TAB PO SCH (08:12)
[2023-08-28] MEDS: ASPIRIN 81 MG ECTAB PO SCH (08:12)
--- NOTE | 2023-08-28 09:22 | Gastrointestinal Consultation ---
Date of Consultation August 28, 2023 Assessment & Plan (1) Cirrhosis of liver: 82 year old male w/ cirrhosis, MELD 21, DF 13, actively using ETOH admitted with generalized abd pain. Pain has since resolved. No acute findings on CT or US, however, liver lesion is noted on CT NPO for MRI liver ETOH cessation discussed PO PPI BID OP EGD Needs OP Hepatology follow up Low NA diet, less than 2g daily No NSAIDs Tylenol less than 2g if using Check AFP Thank you for allowing us to participate in the care of this patient. Please call with any acute changes, questions or concerns. Please see addendum below with additional recommendation from my supervising physician. Supervising Physician Co-Signing Physician Notes i personally saw and evaluated the patient on 08/28/2023 with ANKUR Vasquez and agree with her findings and plan of care. Patient AAOx3, notable scleral icterus, no ascites, abdomen non-tender. 82 y/o M with history of decompensated alcohol and [place]UZ cirrhosis (MELD-Na score 21) c/b ascites admitted with abdominal pain that has since resolved. He follows with Dr. Anguiano as an outpatient. No acute findings on CT or ultrasound however noted to have a 2.6 cm ? hepatic lesion on CT. Would recommend MRI of the liver to exclude HCC in setting of known cirrhosis. Outpatient EGD for follow up of gastric ulcer seen on last EGD in 12/2022. PPI 40 mg daily. Advised patient to abstain from drinking all alcohol moving forward as he does report drinking daily still. He likely has a component of alcohol hepatitis given a bilirubin of 7 but would not recommend starting steroids given low DF. He can follow up outpatient with Dr. Anguiano. Jennifer Foreman, Gastroenterology and Hepatology History of Present Illness Reason for Consultation: transaminitis Requesting Physician: Leslie Attending Physician: Joel Nelson MD History of Present Illness 82 year old male with history of CAD, cardiac catheterization, T2DM, HTN, dyslipidemia, CKD, afib, aortic valve disease w/ severe bioprosthetic , cirrhosis and others below admitted through the ED with abd pain. GI asked to evaluate. Pt was seen and evaluated, chart reviewed. Notes that currently, his pain has resolved, he is hungry and wants to go home. Suggests that abd pain started abotu 3 days ago now. It was mid abd. Constant. He is unsure if this was sharp or cramping as he forgets. Denies nausea/vomiting with the pain. No diarrhea or constipation. No black or bloody stools. No fever, chills, CP, SOB. MELD 21 DF 13 Actively drinking, 2-3 liquor based drinks daily with 1-2 shots in each drink Tbili 7, INR 1.2, PLT 72, RING CONDUCTOR 1.8 ABD US 2023: Liver: The liver measures 16.2 cm with possible mild fatty infiltration. No focal liver lesion is seen. The portal vein is patent with normal hepatopetal flow. No intrahepatic bile duct dilation. Gallbladder: The gallbladder is contracted. The wall is thickened measuring 4 mm. No gallstones or surrounding fluid identified. Common bile duct: Unremarkable as visualized. No stones. No dilation. Pancreas: The pancreas is obscured by bowel gas. CTAP 2023: 1. No bowel wall thickening or obstruction. 2. Normal appendix. 3. Trace ascites. 4. Small bilateral pleural effusions. 5. Cirrhotic liver with a possible 2.7 cm lesion within the right hepatic lobe. Follow-up nonemergent dedicated liver MRI recommended for further evaluation. 6. Mild periportal and pericholecystic inflammatory change/edema. This is likely due to the patient's cirrhosis. An acute cholecystitis is considered less likely given the lack of gallbladder wall thickening but not entirely excluded. Follow- up abdominal ultrasound can be performed if the patient is complaining of right upper quadrant pain. 7. Additional findings as described above. Allergies Allergy/AdvReac Type Severity Reaction Status Date / Time felodipine Allergy Intermediate HIVES Verified 08/27/23 17:27 empagliflozin Allergy Unknown On file w/ Unverified 08/27/23 17:27 [From Jardiance] [facility] pharmacy, reaction unknown Home Medications Medication Instructions Recorded Confirmed Type aspirin 81 mg tablet,delayed 81 mg PO DAILY 05/19/19 08/27/23 History release (Adult Low Dose Aspirin) allopurinol 100 mg tablet 100 mg PO DAILY 02/24/20 08/27/23 History atorvastatin 40 mg tablet 40 mg PO DAILY 02/24/20 08/27/23 History cholecalciferol (vitamin D3) 25 25 mcg PO DAILY 03/21/20 08/27/23 History mcg (1,000 unit) capsule (Vitamin D3) cyanocobalamin (vitamin B-12) 500 500 mcg PO DAILY 03/21/20 08/27/23 History mcg tablet thiamine HCl (vitamin B1) 100 mg 100 mg PO DAILY 03/21/20 08/27/23 History tablet acetaminophen 325 mg capsule 650 mg PO QID PRN Pain 05/26/22 08/27/23 History folic acid 0.8 mg capsule 0.8 mg PO DAILY 05/26/22 08/27/23 History furosemide 40 mg tablet 40 mg PO QAM #30 tabs 11/09/22 08/27/23 Rx pantoprazole 40 mg tablet,delayed 40 mg PO BID #60 tabs 12/17/22 08/27/23 Rx release carvedilol 3.125 mg tablet 1.5625 mg PO BID 08/27/23 08/27/23 History clopidogrel 75 mg tablet 75 mg PO QAM 08/27/23 08/27/23 History hydralazine 10 mg tablet 5 mg PO BID 08/27/23 08/27/23 History Patient History Medical History Chronic deep vein thrombosis (DVT) Sleep apnea with use of continuous positive airway pressure (CPAP) Hypoxemia Recurrent spontaneous pneumothorax SANDI on CPAP CKD (chronic kidney disease) stage 3, GFR 30-59 ml/min Vitamin D deficiency Steatohepatitis, non-alcoholic HLD (hyperlipidemia) Psoriasis Diabetes Surgical History History of colonoscopy History of hernia repair Rupture quadriceps tendon History of aortic valve replacement Family History Brother Heart disease CABG 2014 Father , 61 COPD (chronic obstructive pulmonary disease) Social History Smoking Status: Never smoker Do You Dip or Chew Tobacco: No; Hx Alcohol Use: Yes Alcohol type: beer and wine Hx Substance Use: No Preferred Language: Pashto 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: Effective Uniform Cap Operator Required: No Beliefs That Will Affect Care: None marital status: Current Living Situation: Spouse Other Information That Helps Us Care for You: No Feels Safe at Home: Yes Safety Concerns: Feels Safe At This Time Assistive Devices: CPAP Review of Systems Review of Systems: All systems reviewed & are unremarkable except as noted in HPI & below Physical Exam Constitutional: WD/WN, vitals as above Respiratory: normal respiratory effort, lungs clear to auscultation Cardiovascular: Rate/Rhythm: regular rate and regular rhythm Gastrointestinal (Abdomen): normal bowel sounds, soft, nontender, no hepatosplenomegaly Skin: no rashes, warm and dry + jaundice Results & Data Vital Signs (Past 12 Hours) Vital Signs Temp Pulse Resp BP Pulse Ox O2 Del Method 08/28/23 07:53 36.5 C 62 20 124/82 96 Room Air 08/28/23 02:37 36.5 C 51 L 18 115/67 96 Room Air 08/27/23 23:27 36.9 C 76 18 134/66 94 Room Air Laboratory Results 08/28/23 08/28/23 08/27/23 Range/Units 07:33 05:56 22:10 WBC 5.49 (4.8-10.8) K/ul RBC 3.17 L (4.70-6.10) M/uL Hgb 9.9 L (14.0-18.0) g/dl Hct 30.1 L (42.0-52.0) % MCV 95.0 (80.0-100.0) fL MCH 31.2 (25.0-34.0) pg MCHC 32.9 (32.0-36.0) g/dL RDW Std Deviation 49.7 H (36.4-46.3) fL RDW Coeff of Efe 14.5 (11.5-14.5) % Plt Count 72 L (130-400) K/uL MPV 10.0 (9.4-12.4) fL Immature Gran % (Auto) 0.4 % Neut % (Auto) 72.2 % Lymph % (Auto) 13.5 % Tyrrell % (Auto) 10.9 % Eos % (Auto) 2.6 % Baso % (Auto) 0.4 % Neut # (Auto) 3.97 (1.40-6.50) K/uL Lymph # (Auto) 0.74 L (1.20-3.40) K/uL Tyrrell # (Auto) 0.60 H (0.11-0.59) K/uL Eos # (Auto) 0.14 (0.00-0.50) K/uL Baso # (Auto) 0.02 (0.00-0.20) K/uL Immature Gran # (Auto) 0.02 (0.01-0.20) K/uL PT 13.3 H (9.0-12.0) Seconds INR 1.2 H (0.9-1.1) APTT (21-31) Seconds PTT Ratio Sodium 139 (136-145) mmol/L Potassium 4.1 (3.5-5.1) mmol/L Chloride 105 (98-107) mmol/L Carbon Dioxide 29 (21-32) mmol/L Anion Gap 5 (3-11) BUN 38 H (6-23) mg/dl Creatinine 1.81 H (0.6-1.4) mg/dl Est Cr Clr Drug Dosing 36.3 ml/min Est GFR ( Amer) 38.9 ml/min Est GFR (Non-Af Amer) 33.6 ml/min BUN/Creatinine Ratio 21.0 H (10-20) Glucose 119 H (70-99(Fasting)) mg/dl POC Glucose 118 H 159 H (70-99) mg/dl Estimat Average Glucose 111 mg/dl Hemoglobin A1c 5.5 (4.5-5.6) % Lactate (0.4-2.0) mmol/L Calcium 8.6 (8.6-10.3) mg/dl Magnesium 1.5 L (1.7-2.4) mg/dl Total Bilirubin 7.0 H (0.2-1.0) mg/dl Direct Bilirubin (0-0.2) mg/dl AST 163 H (13-39) U/L ALT 122 H (7-52) U/L Alkaline Phosphatase 537 H (34-104) U/L Ammonia (18-72) umol/L Troponin I High Sens (0-20) pg/ml Total Protein 6.4 (6.0-8.3) gm/dl Albumin 2.9 L (3.4-5.0) gm/dl Globulin 3.5 (2.5-4.0) gm/dl Albumin/Globulin Ratio 0.8 L (0.9-2) Lipase 15 (11-82) U/L Urine Color Urine Appearance (Clear) Urine pH (4.5-7.5) Ur Specific [place] (1.000-1.030) Urine Protein (Negative) Urine Glucose (UA) (Negative) Urine Ketones (Negative) Urine Blood (Negative) Urine Nitrite (Negative) Urine Bilirubin (Negative) Urine Urobilinogen (Negative) Ur Leukocyte Esterase (Negative) Urine WBC (Auto) (0-5) /hpf Urine RBC (Auto) (0-4) /hpf U Hyaline Cast (Auto) (0-5) /lpf U Epithel Cells (Auto) (0-5) /lpf Urine Bacteria (Auto) (Negative) Ethyl Alcohol mg/dL (<10.0) mg/dl Hepatitis A IgM Ab Pending Hep Bs Antigen Pending Hep Bs Ag Confirmation Pending Hep B Core IgM Ab Pending Hepatitis C Ab (EIA) Pending 08/27/23 08/27/23 08/27/23 Range/Units 18:52 17:00 13:53 WBC 5.85 (4.8-10.8) K/ul RBC 3.45 L (4.70-6.10) M/uL Hgb 10.9 L (14.0-18.0) g/dl Hct 33.0 L (42.0-52.0) % MCV 95.7 (80.0-100.0) fL MCH 31.6 (25.0-34.0) pg MCHC 33.0 (32.0-36.0) g/dL RDW Std Deviation 50.5 H (36.4-46.3) fL RDW Coeff of Efe 14.6 H (11.5-14.5) % Plt Count 77 L (130-400) K/uL MPV 10.4 (9.4-12.4) fL Immature Gran % (Auto) 0.3 % Neut % (Auto) 74.9 % Lymph % (Auto) 13.3 % Tyrrell % (Auto) 8.9 % Eos % (Auto) 2.1 % Baso % (Auto) 0.5 % Neut # (Auto) 4.38 (1.40-6.50) K/uL Lymph # (Auto) 0.78 L (1.20-3.40) K/uL [place] # (Auto) 0.52 (0.11-0.59) K/uL Eos # (Auto) 0.12 (0.00-0.50) K/uL Baso # (Auto) 0.03 (0.00-0.20) K/uL Immature Gran # (Auto) 0.02 (0.01-0.20) K/uL PT 12.4 H (9.0-12.0) Seconds INR 1.1 (0.9-1.1) APTT 30 (21-31) Seconds PTT Ratio 1.1 Sodium 136 (136-145) mmol/L Potassium 4.4 (3.5-5.1) mmol/L Chloride 104 (98-107) mmol/L Carbon Dioxide 26 (21-32) mmol/L Anion Gap 6 (3-11) BUN 38 H (6-23) mg/dl Creatinine 1.82 H (0.6-1.4) mg/dl Est Cr Clr Drug Dosing 36.2 ml/min Est GFR ( Amer) 38.7 ml/min Est GFR (Non-Af Amer) 33.4 ml/min BUN/Creatinine Ratio 20.9 H (10-20) Glucose 182 H (70-99(Fasting)) mg/dl POC Glucose (70-99) mg/dl Estimat Average Glucose mg/dl Hemoglobin A1c (4.5-5.6) % Lactate 1.8 (0.4-2.0) mmol/L Calcium 9.0 (8.6-10.3) mg/dl Magnesium (1.7-2.4) mg/dl Total Bilirubin 6.3 H (0.2-1.0) mg/dl Direct Bilirubin 4.4 H (0-0.2) mg/dl AST 234 H (13-39) U/L ALT 155 H (7-52) U/L Alkaline Phosphatase 630 H (34-104) U/L Ammonia 33.0 (18-72) umol/L Troponin I High Sens 12.0 (0-20) pg/ml Total Protein 7.3 (6.0-8.3) gm/dl Albumin 3.2 L (3.4-5.0) gm/dl Globulin 4.1 H (2.5-4.0) gm/dl Albumin/Globulin Ratio 0.8 L (0.9-2) Lipase 90 H (11-82) U/L Urine Color Dark Yellow Urine Appearance Clear (Clear) Urine pH 5.0 (4.5-7.5) Ur Specific [place] 1.034 H (1.000-1.030) Urine Protein 1+ H (Negative) Urine Glucose (UA) Negative (Negative) Urine Ketones Negative (Negative) Urine Blood Negative (Negative) Urine Nitrite Negative (Negative) Urine Bilirubin 1+ H (Negative) Urine Urobilinogen Negative (Negative) Ur Leukocyte Esterase Negative (Negative) Urine WBC (Auto) 1-5 (0-5) /hpf Urine RBC (Auto) 0-4 (0-4) /hpf U Hyaline Cast (Auto) 0 (0-5) /lpf U Epithel Cells (Auto) 0-5 (0-5) /lpf Urine Bacteria (Auto) Negative (Negative) Ethyl Alcohol mg/dL < 10.0 (<10.0) mg/dl Hepatitis A IgM Ab Hep Bs Antigen Hep Bs Ag Confirmation Hep B Core IgM Ab Hepatitis C Ab (EIA) (1) Cirrhosis of liver Ascites presence: unspecified Hepatic cirrhosis type: unspecified hepatic cirrhosis Qualified Code(s): K74.60 - Unspecified cirrhosis of liver
--- OUTSIDE RECORDS SUMMARY | 2023-08-28 15:09 | External Medical Summary | Summary of Care ---
Author Name Unknown Organization [facility] Address [address] [facility] [place] [address] Phone [phone] Care Team Providers Care Recovery Advocate Name Role Phone Nick Edwards MD Primary Care Provider [phone] Reason for Visit * Reason Comments Outpatient Testing Encounter Details Date Type Department Care Team (Late st Contact Info) Description 06/30/2023 12:40 PM EST [facility], [facility] [address] [facility] [address] [facility] [address] [place] [address] Acute diastolic heart failure (HCC); Encounter for monitoring diuretic therapy Allergies Active Allergy Reactions Criticality Noted Date Comments Felodipine 11/17/2000 plendil Empagliflozin Diarrhea High 06/03/2022 documented as of this encounter (statuses as of 06/30/2023) Medications Medication Sig Dispensed Refills Start Date End Date Status ASPIRIN TABS 81 MG OR Take 1 Tablet by mouth daily. 34 5 11/17/2000 Active VITAMIN D3 1000 UNITS PO TABS Take 1 Tablet by mouth daily. 0 12/26/2013 Active VITAMIN B-12 500 MCG PO TABS Take 1 Tablet by mouth daily. 1 Tab 0 07/26/2014 Active [facility] VITAMIN B-1 100 MG PO TABS Take 1 Tablet by mouth daily. 1 Tab 0 07/26/2014 Active FOLIC ACID 0.8 MG PO CAPS Take 1 Capsule by mouth daily. 0 Active OneTouch Ultra Blue In Vitro Strip (Glucose Blood) 2X'S A DAY DX E11.9 200 Strip 3 01/20/2022 Active Amoxicillin 500 MG Oral Capsule (Amoxil)Indication s:S/P AVR TAKE 4 CAPSULES BY MOUTH 1/2 HOUR BEFORE DENTAL APPOINTMENT 4 Capsule 2 03/29/2022 Active Atorvastatin Calcium 40 MG Oral Tablet (Lipitor)Indicatio ns:Dyslipidemia, goal LDL below 100 Take 1 Tablet by mouth every evening. 90 Tablet 3 11/19/2022 Active Ferrous Sulfate 325 (65 Fe) MG Oral Tablet (Feosol)Indication s:Gastrointestinal hemorrhage associated with gastric ulcer Take 1 Tablet by mouth in the morning. 90 Tablet 3 01/05/2023 Active Carvedilol 3.125 MG Oral Tablet (Coreg)Indications :Diastolic heart failure, unspecified HF chronicity (HCC) 1/2 tab twice daily 90 Tablet 1 02/24/2023 Active TRUEplus Lancets 33G 2X'S A DAY DX E11.9 200 Each 3 02/27/2023 Active Clopidogrel Bisulfate 75 MG Oral Tablet (pLAVix) Take 1 Tablet by mouth in the morning. 90 Tablet 3 04/09/2023 Active CPAP by Device route every night at bedtime. 0 Active Pantoprazole Sodium 40 MG Oral Tablet Delayed Release (Protonix)Indicati ons:Gastrointestin al hemorrhage associated with gastric ulcer Take 1 Tablet by mouth in the morning and 1 Tablet in the evening. 180 Tablet 3 05/06/2023 04/30/2024 Active hydrALAZINE HCl 10 MG Oral Tablet (Apresoline)Indica tions:Diastolic heart failure, unspecified HF chronicity (HCC) TAKE 1/2 TABLETS BY MOUTH IN THE MORNING AND 1/2 TABLETS BEFORE BEDTIME. 90 Tablet 3 06/08/2023 Active Lisinopril 10 MG Oral Tablet (Prinivil) Take 0.5 Tablets by mouth in the morning. 0 06/05/2023 Active Allopurinol 100 MG Oral Tablet (Zyloprim)Indicati ons:Gouty arthropathy TAKE ONE TABLET BY MOUTH DAILY OR DIRECTED 90 Tablet 1 06/09/2023 Active Furosemide 40 MG Oral Tablet (Lasix)Indications :Acute diastolic heart failure (HCC) Take 0.5 Tablets by mouth in the morning. 0 06/17/2023 Active documented as of this encounter (statuses as of 06/30/2023) Active Problems Problem Noted Date Diagnosed Date Type 2 diabetes mellitus wit h diabetic peripheral angiopathy without gangrene 04/30/2023 Type 2 diabetes mellitus wit h diabetic peripheral angiopathy without gangrene 04/30/2023 Type 2 diabetes mellitus wit h diabetic peripheral angiopathy without gangrene 04/30/2023 S/P TAVR (transcatheter aortic valve replacement ) 04/21/2023 Chronic atrial fibrillation 04/06/2023 Other cirrhosis of liver 11/13/2022 Type 2 diabetes mellitus wit h hemoglobin A1c goal of less than 8.0% 11/02/2022 Type 2 diabetes mellitus wit h hemoglobin A1c goal of less than 8.0% 11/02/2022 Prediabetes 10/02/2022 Pulmonary hypertension 11/05/2020 Heart failure 04/13/2020 Hypertensive kidney disease with stage 3 chronic kidney disease 11/01/2018 CKD (chronic kidney disease) stage 3, GFR 30-59 ml/min 07/10/2015 HTN, goal below 140/90 09/04/2014 S/P AVR 05/16/2014 Nonrheumatic aortic valve stenosis 10/12/2012 Vitamin D deficiency 05/02/2011 Steatohepatitis, non-alcoholic 03/13/2010 Dyslipidemia, goal LDL below 100 06/20/2009 Overview: Per Lipid Taxonomy. ADVANCE DIRECTIVE INFORMATION 12/06/2004 Overview: No, Advance Directive brochure given to patient. documented as of this encounter (statuses as of 06/30/2023) Resolved Problems Problem Noted Date Diagnosed Date Resolved Date Gouty arthropathy 04/22/2016 05/10/2018 Type 2 diabetes mellitus wit h hemoglobin A1c goal of less than 8.0% 08/02/2014 11/10/2018 Overview: ICD-10 update of inactive term HTN, goal below 140/80 02/23/201209/04 Overview: Per HTN Protocol #27. 04/1994 Severe obesity with body mas s index (BMI) of 35.0 to 39.9 with serious comorbidity 10/01/2009 Overview: Per Obesity Taxonomy ICD-10 update of inactive diagnosis HTN, GOAL BELOW 130/80 08/01/200902/25 Overview: Per HTN Taxonomy. 04/1994 Type 2 diabetes mellitus wit h hemoglobin A1c goal of less than 7.0% 05/03/2009 08/02/2014 Overview: Per Diabetes Taxonomy. ICD-10 update of inactive term Type 2 diabetes mellitus wit h stage 3 chronic kidney disease, without long-term current use of insulin 05/03/2009 08/08/2021 Overview: Per Diabetes Taxonomy. DM type 2 causing renal disease 04/08/2009 05/03/2009 Overview: Per Diabetes Taxonomy. Type 2 diabetes mellitus wit h hemoglobin A1c goal of less than 7.0% 06/25/2005 05/03/2009 Overview: Per Diabetes Taxonomy. ICD-10 update of inactive term ABN LIVER FUNCTION STUDY 02/01/2005 GOUT NOS 05/23/2002 04/22/2016 HTN, goal below 140/90 08/01 Overview: Per HTN Taxonomy. 04/1994 Sleep apnea 12/24/2016 Overview: Obstructive;Dx 02/1999 PURE HYPERCHOLESTEROLEM 06/05 Overview: Per Lipid Taxonomy. Morbid obesity, BMI not known 10/01/2009 Overview: Per Obesity Taxonomy documented as of this encounter (statuses as of 06/30/2023) Immunizations Name Administration Dates Next Due COVID-19 mRNA, LNP-s, No Pre serve, 2-Dose Series (Pfizer) 04/03/2021,09/14/2020,08/17/2020 Influenza, Whole Virus 05/03/2018,07/24/2006 Pneumococcal Conjugate Vacc, 13 Valent (Prevnar) 01/18/2015 Seasonal Influenza, PF, 6 M & above, IM , (FluLaval or Fluzone) 03/29/2020,05/06/2017 Seasonal Influenza, Quadriva lent Hd (Fluzone Hd) 03/16/2023,04/10/2022,04/15/2021 Seasonal Influenza, Quadriva lent, No Preserve, IM 04/22/2016,04/20/2015 04/22/2017 Seasonal Influenza, Split, I IV3, With Preserve, Inj 05/09/2014,06/07/2013,04/16/2012,04/15,04/29/2010,04/02/2009,05/29/2008 ,05/07/2007 Seasonal Influenza, Trivalen t, Adjuvanted, 65+ yrs 05/18/2019 TDAP (age 10 and older)(Boostrix) 04/30/2023,09/2012 Varicella Zoster Vaccine (Adult) 11/17/2012 Zoster Vaccine Recombinant (Shingrix) 08/25/2022,06/02/2022 documented as of this encounter Social History Tobacco Use Types Packs/Day Years Used Date Smoking Tobacco: Never Smokeless Tobacco: Never Alcohol Use Standard Drinks/Week Comments Yes 0 (1 standard drink = 0.6 oz pur e alcohol) a few drinks/month PHQ-2 Answer Date Recorded PHQ-2 Score 0 03/29/2020 Hunger Vital Sign Answer Date Recorded Worried About Running Out of Food in the Last Ye ar Never true 05/18/2019 Ran Out of Food in the Last Year Never true 05/18/2019 Sex and Gender Information Value Date Recorded Sex Assigned at Male 11/10/2018 1:19 PM EDT Gender Identity Male 11/10/2018 1:19 PM EDT Sexual Orientation Straight 11/10/2018 1: 19 PM EDT Job Start Date Occupation Industry Not on file Not on file Not on file documented as of this encounter Functional Status Functional Status Response Date of Assess ment Are you deaf or do you have serious difficulty h earing? No 04/21/2023 Are you blind or do you have serious difficulty seeing, even when wearing glasses? No 04/21/2023 Do you have serious difficul ty walking or climbing stairs? (5 years old or older) No 04/22/2023 Do you have difficulty dress ing or bathing? (5 years old or older) No 04/21/2023 Because of a physical, menta l, or emotional condition, do you have difficulty doing errands alone such as visiting a doctor s office or shopping? (15 years old or older) No 04/21/20 Cognitive Status Response Date of Assessm ent Because of a physical, menta l, or emotional condition, do you have serious difficulty concentrating, remembering, or making decisions? (5 years old or older) No 04/21/2023 documented as of this encounter Plan of Treatment Upcoming Encounters Date Type Department Care Team (Latest Contact Info) Description 06/30/2023 1:00 PM EST Cardiac Studies Cardiac Studies, [facility] [address] [facility] [place] [address] History of transcatheter aortic valve replacement (TAVR) 07/14/2023 10:00 AM EST Office Visit [facility] [address] [facility] [facility] [place] [id number] Sujey Vega DO [address] [facility] [place] [address] 07/30/2023 2:00 PM EST Office Visit Nephrology, [facility] [address] [facility] [place] [address] Regina Alonso MD [address] [facility] [place] [address] 11/03/2023 10:30 AM EDT Office Visit Cardiology, [facility] [address] [facility] [place] [address] Randi Mendoza PA-C [address] [facility] [address] 11/05/2023 11:20 AM EDT [facility] [address] [facility] [id number] Nick Edwards MD [address] [place] [address] Pending Results Name Type Priority Associated Diagnoses Date /Time BASIC METABOLIC PANEL Lab Routine Acute diastolic heart failure (HCC) Encounter for monitoring diuretic therapy 06/30/2023 12:37 PM EST Health Maintenance Due Date Last Done Comments Depression Screening 03/29/2021 03/29/2020 COVID-19 Vaccine (2022-08 4 season) 2023 05/21/2022, 04/03/2021, 09/14/2020, Additional history exists Zoster Vaccines Completed 08/25/2022, 05/07, 11/17/2012 Influenza Vaccine (FLU shot) Completed 05/2023, 04/10/2022, 04/15/2021, Additional history exists documented as of this encounter Medical Devices Implanted Type Area Nursing Program Director Device Identifier Shelf Expiration Date Model / Serial / Lot Valve Heart Trifec Aortic 23mm - [id number] Implanted:Qty : 1 on 05/16/2014 at [facility] [place] N/A: Aorta [facility] [employer]UAN : CARDIOVASCULAR 07/25/2015 TF-23A / [id number] / Stent Synergy Xd Mr [id number] - [id number] Implanted:Qty : 1 on 04/21/2023 by Christopher Moreno MD at [facility] [place] Antengo [id number] 10/14/2023 [id number] / / [id number] documented as of this encounter Visit Diagnoses Diagnosis History of transcatheter aortic valve replacement (TAVR) Acute diastolic heart failure (HCC) Acute diastolic heart failure Encounter for monitoring diuretic therapy Encounter for therapeutic drug monitoring documented in this encounter Advance Directives Latest Code Status on File Code Status Date Activated Date Inactivated Comments Full Code 04/21/2023 11:25 AM 04/22/2023 5:38 PM Th is order reflects the patients wishes and were consensually agreed upon. Question Answer Comments Discussion of Advance Directives occurred with: Patient Code Status History Code Status Date Activated Date Inactivated Comments Full Code 04/09/2023 9:33 AM 04/09/2023 1:34 PM This order reflects the patients wishes and were consensually agreed upon. Question Answer Comments Discussion of Advance Directives occurred with: Not Discussed due to patient's condition Full Code 05/16/2014 4:52 PM 05/19/2014 4:26 PM Thi s order reflects the patients wishes and were consensually agreed upon. Care Teams Recovery Advocate Relationship Specialty Start Date End Date Nick Edwards MD [address] [facility] [place] [id number] PCP - General 01/11/04 documented as of this encounter
--- OUTSIDE RECORDS SUMMARY | 2023-08-28 15:09 | External Medical Summary | Summary of Care ---
Author Name Unknown Organization [facility] Address [address] [place] [address] Phone [phone] Care Team Providers Care Test Engine Evaluator Name Role Phone Nick Edwards MD Primary Care Provider [phone] Reason for Visit * Reason Onset Date Comments Medication Refill 06/05/2023 Encounter Details Date Type Department Care Team (Late st Contact Info) Description 06/05/2023 Telephone [facility] [address] [place] [address] Nick Edwards MD [address] [place] [address] Medication Refill Allergies Active Allergy Reactions Criticality Noted Date Comments Felodipine 11/17/2000 plendil Empagliflozin Diarrhea High 06/03/2022 documented as of this encounter (statuses as of 07/30/2023) Medications Medication Sig Dispensed Refills Start Date [...] evening. 180 Tablet 3 05/06/2023 04/30/2024 Active documented as of this encounter (statuses as of 07/30/2023) Active Problems Problem Noted Date Diagnosed Date [...] as of this encounter (statuses as of 07/30/2023) Resolved Problems Problem Noted Date Diagnosed Date [...] as of this encounter (statuses as of 07/30/2023) Immunizations Name Administration Dates Next Due COVID-19 [...] Upcoming Encounters Date Type Department Care Team (Late st Contact Info) Description 11/03/2023 10:30 AM EDT Office Visit Cardiology, [facility] [address] [place] [address] Randi Mendoza PA-C [address] [place] [address] 11/05/2023 11:20 AM EDT [facility] [address] [address] Nick Edwards [facility] [address] [facility] [phone] Health Maintenance Due Date Last Done Comments Depression Screening 03/29/2021 03/29/2020 COVID-19 Vaccine (2022-08 4 season) 2023 05/21/2022, 04/03/2021, 09/14/2020, Additional history exists Zoster Vaccines Completed 08/25/2022, 05/07, 11/17/2012 Influenza Vaccine (FLU shot) Completed 05/2023, 04/10/2022, 04/15/2021, Additional history exists documented as of this encounter Medical Devices Implanted Type Area Sonography Technician Device Identifier Shelf Expiration Date Model / Serial / Lot Valve Heart Trifec Aortic 23mm - [id number] [place]:Q[place] : 1 [place] 05[place]16/[place] [facility] [place]: Aorta [facility] [employer] : CARDIOVASCULAR 07/25/2015 TF-23A / [id number] / Stent Synergy Xd Mr 4.93f53ib - [id number] Implanted:Qty : 1 on 04/21/2023 by Christopher Moreno MD [place] [facility] [facility] [facility] [place] [employer] [id number] 10/14/2023 [id number] / / [id number] documented as of this encounter Advance Directives Latest Code Status [...] and were consensually agreed upon. Care Teams Test Engine Evaluator Relationship Specialty Start Date End Date Nick Edwards MD [address] [place] [address] PCP - General 01/11/04 documented as of this encounter
--- OUTSIDE RECORDS SUMMARY | 2023-08-28 15:09 | External Medical Summary ---
Author Name Unknown Address Unknown Organization [id number]:[facility] - [address] [place] [address] Laboratory Report Ordering Provider Test Date Status JAVY HUFFMAN 07/30/2023 15:14:20 Final Normal: <30 mg/g creatinine< br/>High: 30-300 mg/g creatinine
Very High: >300 mg/g creatinine
Nephrotic: >2200 mg/g creatinine Observation Date Value Abnormality Reference (Units ) Status Albumin, Urine 07/30/2023 15:14:20 4.99 (mg/dL) Final Creatinine, Urine 07/30/2023 15:14:20 128 (mg/dL) Final Albumin/Creatinine [Mass Ratio] in Urine 07/30/2023 15:14:20 39 Above high normal <30 (mg/g Creat) Final Performing Location [facility] - [address] [place] [address]
--- OUTSIDE RECORDS SUMMARY | 2023-08-28 15:09 | External Medical Summary | Summary of Care ---
Author Name Unknown Organization [facility] Address [address] [facility] [place] [address] Phone [phone] Care Team Providers Care Pocketbook Maker Name Role Phone Raheem Edwards MD Primary Care Provider [phone] Reason for Visit * Reason Comments Chronic Kidney Disease (CKD) Encounter Details Date Type Department Care Team (Late st Contact Info) Description 07/30/2023 2:00 PM EST Office Visit Nephrology, [facility] [address] [facility] [place] [address] Regina Alonso MD [address] [place] [address] HTN, goal below 130/80*; Uncontrolled hypertension; Stage 3b chronic kidney disease (HCC); Stage 2 hypertension; White coat syndrome with diagnosis of hypertension Allergies Active Allergy Reactions Criticality Noted Date Comments Felodipine 11/17/2000 plendil Empagliflozin Diarrhea High 06/03/2022 documented as of this encounter (statuses as of 08/02/2023) Medications Medication Sig Dispensed Refills Start Date [...] 01/20/2022 Active Amoxicillin 500 MG Oral Capsule (Amoxil)Indicatio ns:S/P AVR TAKE 4 CAPSULES BY MOUTH 1/2 HOUR BEFORE DENTAL APPOINTMENT 4 Capsule 2 03/29/2022 Active Atorvastatin Calcium 40 MG Oral Tablet (Lipitor)Indicati ons:Dyslipidemia, goal LDL below 100 Take 1 Tablet by mouth every evening. 90 Tablet 3 11/19/2022 Active Ferrous Sulfate 325 (65 Fe) MG Oral Tablet (Feosol)Indicatio ns:Gastrointestin al hemorrhage associated with gastric ulcer Take 1 Tablet by mouth in the morning. 90 Tablet 3 01/05/2023 Active Carvedilol 3.125 MG Oral Tablet (Coreg)Indication s:Diastolic heart failure, unspecified HF chronicity (HCC) 1/2 [...] Sodium 40 MG Oral Tablet Delayed Release (Protonix)Indicat ions:Gastrointest inal hemorrhage associated with gastric ulcer Take 1 Tablet by mouth in the morning and 1 Tablet in the evening. 180 Tablet 3 05/06/2023 Active hydrALAZINE HCl 10 MG Oral Tablet (Apresoline)Indic ations:Diastolic heart failure, unspecified HF chronicity (HCC) TAKE 1/2 TABLETS BY MOUTH IN THE MORNING AND 1/2 TABLETS BEFORE BEDTIME. 90 Tablet 3 06/08/2023 Active Allopurinol 100 MG Oral Tablet (Zyloprim)Indicat ions:Gouty arthropathy TAKE ONE TABLET BY MOUTH DAILY OR DIRECTED 90 Tablet 1 06/09/2023 Active Furosemide 40 MG Oral Tablet (Lasix)Indication s:Acute diastolic heart failure (HCC) Take 0.5 Tablets by mouth in the morning. 0 06/17/2023 Active Lisinopril 10 MG Oral Tablet (Prinivil) Take 0.5 Tablets by mouth in the morning. 0 06/05/2023 4 Discontinue d(Medicatio n List Clean Up) documented as of this encounter (statuses as of 08/02/2023) Active Problems Problem Noted Date Diagnosed Date [...] 10/02/2022 Pulmonary hypertension 11/05/2020 Heart failure 04/13/2020 CKD (chronic kidney disease) stage 3, GFR 30-59 ml/min 07/10/2015 HTN, goal below 140/90 09/04/2014 S/P AVR 05/16/2014 Nonrheumatic aortic valve stenosis 10/12/2012 Vitamin D deficiency 05/02/2011 Steatohepatitis, non-alcoholic 03/13/2010 Dyslipidemia, goal LDL below 100 06/20/2009 Overview: Per Lipid Taxonomy. ADVANCE DIRECTIVE INFORMATION 12/06/2004 Overview: No, Advance Directive brochure given to patient. documented as of this encounter (statuses as of 08/02/2023) Resolved Problems Problem Noted Date Diagnosed Date Resolved Date Hypertensive kidney disease with stage 3 chronic kidney disease 11/01/2018 08/02/2023 Gouty arthropathy 04/22/2016 05/10/2018 Type 2 diabetes [...] as of this encounter (statuses as of 08/02/2023) Immunizations Name Administration Dates Next Due COVID-19 [...] on file documented as of this encounter Last Filed Vital Signs Vital Sign Reading Time Taken Comments Blood Pressure 153/66 07/30/2023 2:08 PM EST Pulse 90 07/30/2023 2:08 PM EST Temperature 37 C (98.6 F) 07/30/2023 2:03 PM EST Respiratory Rate 18 07/30/2023 2:03 PM EST Oxygen Saturation 99% 07/30/2023 2:03 PM EST Inhaled Oxygen Concentration - - Weight 93 kg (205 lb) 07/30/2023 2:03 PM EST Height - - Body Mass Index 28.86 07/14/2023 8:56 AM EST documented in this encounter Functional Status Functional Status Response [...] No 04/21/2023 documented as of this encounter Patient Instructions * Patient Instructions* Regina Alonso MD - 07/30/2023 2:58 PM EST -check urine tests -no medication changes for now -avoid medicines like aleve, advil, ibuprofen, aspirin more than 81 mg daily and other NSAIDS whichare not good for kidney patients. Take only tylenol (acetaminophen) up to 2000 mg daily as needed for pain or as directed by your primary care provider. -check 24 hr BP study when you can -will work with cardiology on medications/BP recs -stay active as you have been documented in this encounter Progress Notes * Regina Alonso MD - 07/30/2023 2:26 PM EST NEPHROLOGY CLINIC NOTE [facility]phrology[facility] [address] 07/30/2023, 2:26 PM Patient Name: Gregorio Davidson BACKGROUND: 82 year old male presents for follow-up of CKD 3B w/ 100 mg albuminuria from age, uncontrolled htn and status post April 21 TAVR. Medical history includes hypertension frequently w/ poor control, status post bioprosthetic aortic valve replacement May, and TAVR 04/2023, obstructive sleep apnea on CPAP, diabetes since about 2005 on oral medications, [place]UZ cirrhosis, gout, bladder diverticulum. Had 2 spontaneous pneumothoraces in fall 2019 >> referred to [facility]; no clear cause found though c/b Chest tube infection.For prn CT surgery f/u; also had CONCEPCION w/ peak creat 2.3. Had hand surgery > has had Mohs w/ Shannan. From 08/25/2010 through July, his creatinine was 1.0-1.1 consistently. In Nov, 2014, creatinine was 1.4; in May,, creatinine 1.6; in June,, creatinine 1.8. Some intensification of SHANNAN-inhibitor and diuretic in this timeframe after aortic valve replacement surgery. In early 1999 he had severe bladder outlet obstruction treated successfully with 2006 TURP. June,, urology found no obstructive concerns or bladder dysfunction on evaluating patient. Did have laser therapy with Urology 2003 through 2005 for LUTS. Possible small nephrolithiasis the patient has never had symptoms of this. No NSAIDs. No herbal supplements. No gout attacks times 20 years. Lost 20 lb prior to May, surgery in gained it back. 05/2022 [facility] admission acute renal failure and hyperkalemia with potassium at 6.7 and creatinine at3.2 after presenting to cardiology w/ HR in 40s and asymptomatic. His BUN was 110. He was notably volume depleted. A number of medication changes were made including: He was to stop chlorthalidone, li sinopril, atenolol And Jardiance. He was having a lot of problems with diarrhea at that time which was attributed to Jardiance. 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 Home bp cuff runs 10 pts high 03/2016. Replaced it 2020 but not validated. Cont to follow w/ [facility] cardiology, hepatology. TODAY 07/30/2023: At 05/05 OV here w/ me (one week after TAVR), pt's SBP was 170s, as they were at hospital d/c; asymptomatic both times. Surgery led to better breathing and edema control. BP had been recorded as wnl at PCP f/u on 04/30 as well as at cardiology f/u visit. No med changes. Hospitalized 2-3 times over summer before surgery; none since TAVR. Prior to valve having trouble in and out of tractors but now not bothering him to do this. 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 W/ repeated uncontrolled BP noted at last OV > I referred pt to MTM to follow self measured BP w/ pt so that we can establish baseline OP bp given discrepancies and address HTN closer in as needed. This rationale was explained to pt at OV. However when MTM called him to est care he refused to follow with them. Cardiology stopped RAASI and lowered lasix in mid June d/t hyperkalemia and pt "feeling dehydrated" Pt frustrated today about discrepancies in his care > why I keep telling him HTN is a very concerning issue for him but PCP, cardiology not w/ this impression. REVIEW OF SYSTEMS: No F/C, no weight changes, energy level much better and appetite acceptable No acute visual changes or KYLE No sinus, dental, throat pain No neck lumps/bumps or stiffness No palpitations, angina, orthopnea, edema improved after procedure he states No cough, wheeze, or dyspnea; exertional dyspnea improved > feels breathing 50% better since surgery No N/V/D/C/abd pain No dysuria, hematuria, nocturia >2X; no new/worrisome voiding sx; normally no nocturia if < 6h No rash or generalized itch No focal joint/muscle aches; occasional cramps No inappropriate bleeding or bruising No tremor, seizures, focal or global weakness or paresthesias Denies presyncopal or orthostatic symptoms; no falls Current Outpatient Medications Medication Sig Dispense Refill ASPIRIN TABS 81 MG OR Take 1 Tablet by mouth daily. 34 5 VITAMIN D3 1000 UNITS PO TABS Take 1 Tablet by mouth daily. VITAMIN B-12 500 MCG PO TABS Take 1 Tablet by mouth daily. 1 Tab 0 [facility] VITAMIN B-1 100 MG PO TABS Take 1 Tablet by mouth daily. 1 Tab 0 FOLIC ACID 0.8 MG PO CAPS Take 1 Capsule by mouth daily. Amoxicillin 500 MG Oral Capsule (Amoxil) TAKE 4 CAPSULES BY MOUTH 1/2 HOUR BEFORE DENTAL APPOINTMENT 4 Capsule 2 Atorvastatin Calcium 40 MG Oral Tablet (Lipitor) Take 1 Tablet by mouth every evening. 90 Tablet 3 Ferrous Sulfate 325 (65 Fe) MG Oral Tablet (Feosol) Take 1 Tablet by mouth in the morning. 90 Tablet 3 Carvedilol 3.125 MG Oral Tablet (Coreg) 1/2 tab twice daily 90 Tablet 1 Clopidogrel Bisulfate 75 MG Oral Tablet (pLAVix) Take 1 Tablet by mouth in the morning. 90 Tablet 3 CPAP by Device route every night at bedtime. Pantoprazole Sodium 40 MG Oral Tablet Delayed Release (Protonix) Take 1 Tablet by mouth in the morning and 1 Tablet in the evening. 180 Tablet 3 hydrALAZINE HCl 10 MG Oral Tablet (Apresoline) TAKE 1/2 TABLETS BY MOUTH IN THE MORNING AND 1/2 TABLETS BEFORE BEDTIME. 90 Tablet 3 Allopurinol 100 MG Oral Tablet (Zyloprim) TAKE ONE TABLET BY MOUTH DAILY OR DIRECTED 90 Tablet 1 Furosemide 40 MG Oral Tablet (Lasix) Take 0.5 Tablets by mouth in the morning. OneTouch Ultra Blue In Vitro Strip (Glucose Blood) 2X'S A DAY DX E11.9 200 Strip 3 TRUEplus Lancets 33G 2X'S A DAY DX E11.9 200 Each 3 No current facility-administered medications for this visit. Review of patient's allergies indicates: Allergen Reactions Jardiance [Empagliflozin] Diarrhea Felodipine plendil PHYSICAL EXAMINATION: BP Readings from Last 6 Encounters: 07/30/23 153/66 07/14/23 120/62 06/05/23 122/64 05/05/23 175/77 04/30/23 120/84 04/29/23 114/68 Wt Readings from Last 6 Encounters: 07/30/23 93 kg (205 lb) 07/14/23 95.3 kg (210 lb 1.6 oz) 06/05/23 93 kg (205 lb) 05/05/23 93.3 kg (205 lb 11.2 oz) 04/30/23 94.3 kg (207 lb 12.8 oz) 04/29/23 93.9 kg (207 lb 1.6 oz) Pulse Readings from Last 6 Encounters: 07/30/23 90 07/14/23 70 06/05/23 62 05/05/23 61 04/30/23 100 04/29/23 64 153/66 155/78 159/79 BP Site: Right Arm Right Arm Right Arm BP Position: Sitting Sitting Sitting BP Cuff Size: Regular Regular Regular 07/08/2022 07/23/2022 07/28/2022 10/20/2022 BP AND WT. Systolic 128 122 124 187 Systolic 190 Systolic 186 10/24/2022 11/13/2022 11/28/2022 12/19/2022 02/25/2023 03/13/2023 03/16/2023 BP AND WT. Systolic 176 120 128 128 126 153 120 Systolic 178 149 120 Systolic 102 Systolic 167 Systolic 152 Systolic 172 04/06/2023 BP AND WT. Systolic 112 04/09/2023 04/21/2023 04/22/2023 04/29/2023 04/30/2023 05/05/2023 BP AND WT. Systolic 157 145 119 114 120 175 Systolic 186 118 116 169 Systolic 133 104 178 Systolic 130 112 Systolic 137 Systolic 135 Systolic 167 Systolic 171 Systolic 164 Systolic 183 Systolic 172 Systolic 151 Systolic 136 Systolic 164 06/05/2023 07/14/2023 07/30/2023 BP AND WT. Systolic 122 120 153 Systolic 155 Systolic 159 NAD, oriented x 3, ambulatory w/o asst Normocephalic, atraumatic, eomi nonicteric sclerae MMM Supple neck RRR w/o m/g/r; 1-2+ BLE edema Bibasilar crackles NT abd, +BS, soft, distended abdomen No cyanosis or clubbing No rash No tremor, focal or global weakness; fluent speech, can be challenging to get full hx but usually/ultimately good historian LABS: Recent Labs Units 06/30/23 1237 06/15/23 1518 06/05/23 1316 05/05/23 1236 SODIUM - [facility] mmol/L 140 137 138 141 POTASSIUM - [facility] mmol/L 4.7 4.9 5.3* 4.4 CHLORIDE - [facility] mmol/L 108* 102 104 101 CO2 - [facility] mmol/L BUN - [facility] mg/dL 43* 77* 52* 43* CREATININE - [facility] mg/dL 1.8* 2.6* 2.0* 2.3* ESTIMATED GLOMERULAR FILTRATION RATE - [facility] mL/min 38* 24* 33* 28* Recent Labs Units 06/05/23 1316 04/30/23 1125 04/22/23 0547 04/21/23 1305 HGB - [facility] g/dL 10.1* 9.8* 9.1* 10.8* FERRITIN - [facility] ng/mL -- -- -- 96 TRANSFERRIN SATURATION PERCENT - [facility] % -- -- -- 33 Recent Labs Units 06/30/23 1237 06/15/23 1518 06/05/23 1316 05/05/23 1236 04/06/23 1134 03/13/23 1024 11/13/22 1211 10/17/22 1224 05/12/22 1415 04/10/22 1528 CALCIUM - [facility] mg/dL 8.3* 8.6 8.8 8.8 < > 8.7 < > 8.6 < > 8.9 PHOSPHORUS - [facility] mg/dL -- -- -- -- -- 3.4 -- 3.4 -- 4.1 25-HYDROXY VITAMIN D - [facility] ng/mL -- -- -- -- -- -- -- 47 -- 44 PTH - [facility] pg/mL -- -- -- -- -- -- -- 67* -- 68* < > = values in this interval not displayed. Recent Labs Units 04/30/23 1125 11/13/22 1211 08/26/21 0910 HEMOGLOBIN A1C - [facility] % 6.0* 6.2* 6.1* Recent Labs Units 07/30/23 1514 10/17/22 1406 08/08/21 1132 ALBUMIN / CREATININE RATIO, URINE - [facility] mg/g Creat 39* 160* 74* Recent Labs Units 07/30/23 1514 10/17/22 1406 08/08/21 1132 CLARITY, URINE - [facility] Clear Clear Clear GLUCOSE, URINE - [facility] mg/dL Negative Negative >=1000* BILIRUBIN, URINE - [facility] Negative Negative Negative KETONE, URINE - [facility] mg/dL Negative Negative Negative SPECIFIC GRAVITY, URINE - [facility] 1.019 1.020 1.015 BLOOD, URINE - [facility] Negative Negative Negative PH, URINE - [facility] Units 6.0 6.0 6.0 PROTEIN, URINE - [facility] mg/dL Trace* 30* Trace* UROBILINOGEN, URINE - [facility] mg/dL 2.0* Normal Normal NITRITE, URINE - [facility] Negative Negative Negative ESTERASE, URINE - [facility] Negative Negative Negative BACTERIA, URINE - [facility] /HPF 0-25 26-50* 0-25 WBC, URINE - [facility] /HPF 0-2 3-5* 0-2 RBC, URINE - [facility] /HPF 0-2 0-2 0-2 TTE 06/30/23 The examination is adequate to evaluate the referral indication. The left ventricular cavity size is normal. The LV wall thickness is moderately increased (concentric). The left ventricular wall motion is normal. The qualitative LV ejection fraction is 60-64% (normal). The left atrium is moderately enlarged. The patient is status post TAVR with Minesh type prosthetic valve. (valve in valve) The peak velocity is mildly elevated at 3.3 m/s . Prosthetic valve leaflets not individually visualized . There was no valvular insufficiency Moderate mitral regurgitation is present. There was atrial fibrillation during the examination. Compared to prior study of April 22, 2023, there is no significant change. ASSESSMENT AND PLAN: HTN, goal below 130/80 (Primary) - ALBUMIN / CREATININE RATIO, URINE - URINALYSIS WITH MICROSCOPIC EXAM - BP MONITORING 24HR, AMBULATORY Uncontrolled hypertension - ALBUMIN / CREATININE RATIO, URINE - URINALYSIS WITH MICROSCOPIC EXAM Stage 3b chronic kidney disease (HCC) Stage 2 hypertension White coat syndrome with diagnosis of hypertension - BP MONITORING 24HR, AMBULATORY Follow Up: Return in about 3 months (around 10/29/2023) for clinic visit w/ . | For: clinic visit w/ | Check-out note: Waitlist MD only To lab Challenging clinical situation d/t discrepant BP readings (consistently elevated in kidney clinic (bold in black above) and at procedures (bold in blue above) while consistently controlled at cardiology and PCP visits). In kidney clinic and at procedures he consistently meets Stage 2 HTN criteria and at other clinics consistently with controlled BP readings. Also challenging clinically d/t discrepant medication recommendations from providers, not unexpected w/ such discrepant bp readings. Pt isresistant to checking BP at home, feels he's in clinics so often that BP can be checked there. It's quite possible he has white coat syndrome/ elevated BP only in coming to see me and w/ procedures; also possible we're seeing discrepancy d/t differences in technique/instruments for BP check >> manual in cardiology and at PCP per report, automated on validated cuff in kidney clinic and presume automatic checks during procedures. -not a candidate for remote BP monitoring d/t internet access -he agreed to MTM following self measured BP at home in kidney clinic after extended discussion kim declined to enroll when schedulers called to set up -today again after initially refusing he reluctantly agreed to 24 hr BP study; hopefully he followsthrough His guideline indicated medications have been having frequent changes by multiple providers; he hadAKI late last year with medication changes and may well end up with CKD 4 as we do the work of getting him on evidence based therapy (including RAAS blockade) and controlling BP; fortunately does nothave severe proteinuria. He has advanced CKD 3B at current baseline w/ uncontrolled HTN but is morelikely either at or in stage 4 when BP controlled. He also needs a diuretic and w/ uncontrolled HTNlikely needs one w/ stronger BP control such as torsemide or a thiazide/ TZ like diuretic Will review above w/ cardiology and PCP and work together to make sure we're giving consistent clinical recommendations > staff messages sent. I consider this situation high risk since he has potentially had uncontrolled HTN for over a year with now signficant delay in clarifying degree of BP control and potential for unnecessary morbidity, possibly avoidable health utilization in near/longer term if BP is in fact uncontrolled. Patient Instructions -check urine tests -no medication changes for now -avoid medicines like aleve, advil, ibuprofen, aspirin more than 81 mg daily and other NSAIDS whichare not good for kidney patients. Take only tylenol (acetaminophen) up to 2000 mg daily as needed for pain or as directed by your primary care provider. -check 24 hr BP study when you can -will work with cardiology on medications/BP recs -stay active as you have been Regina Alonso MD Nephrology, [address] [place] [address] CC: Ref: RAHEEM EDWARDS[[id number]] [address] [place] [address] (office) [phone] (fax) PCP: RAHEEM EDWARDS [address] [place] [address] [phone] This chart was completed in part utilizing [employer] Speech Voice Recognition Software. Randomword insertions, pronoun errors, and incomplete sentences are an occasional consequence of this system due to software limitations, and ambient noise. Any questions or concerns about the content, text, or information contained within the body of this dictation should be directly addressed to the provider for clarification. documented in this encounter Nursing Notes * Giuliana Skaggs RN - 07/30/2023 2:05 PM EST Follow up visit today. [facility] discontinued his Lisinopril and decreased furosemide to 20mg daily. No recent illness or hospital stays. documented in this encounter Plan of Treatment Upcoming Encounters Date Type Department Care Team (Late st Contact Info) Description 11/03/2023 10:30 AM EDT Office Visit Cardiology, [facility] [address] [place] [id number] Randi Mendoza PA-C [address] [place] [address] 11/05/2023 11:20 AM EDT Office Visit [facility] [address] [facility] [place] [address] Raheem Edwards MD [address] [place] [facility] [address] 05/10/2024 1:40 PM EST Office Visit Nephrology, [facility] [address] [place] [address] Regina Alonso MD [address] [facility] [place], [place] [address] Scheduled Orders Name Type Priority Associated Diagnoses Orde r Schedule BP MONITORING 24HR, AMBULATORY Procedures Routine HTN, goal below 130/80 White coat syndrome with diagnosis of hypertension Ordered: 07/30/2023 Health Maintenance Due Date Last Done Comments Depression Screening 03/29/2021 03/29/2020 COVID-19 Vaccine (2022- 4 season) 2023 05/21/2022, 04/03/2021, 09/14/2020, Additional history exists Zoster Vaccines Completed 08/25/2022, 05/07, 11/17/2012 Influenza Vaccine (FLU shot) Completed 05/2023, 04/10/2022, 04/15/2021, Additional history exists documented as of this encounter Medical Devices Implanted Type Area Senior Program Planner Device Identifier Shelf Expiration Date Model / Serial / Lot Valve Heart Trifec Aortic 23mm - [id number] [place] [facility] [place] N/A: Aorta [facility] [employer] : CARDIOVASCULAR 07/25/2015 TF-23A / [id number] / Stent Synergy Xd Mr [id number] - [id number] Implanted:Qty : 1 on 04/21/2023 by Christopher Moreno MD at [place] [facility] [place] 3scale [id number] 10/14/2023 [id number] / / [id number] documented as of this encounter Procedures Procedure Name Priority Date/Time Associated Diagnosis Comments URINALYSIS WITH MICROSCOPIC EXAM Routine 07/30/2023 3:14 PM EST HTN, goal below 130/80 Uncontrolled hypertension ALBUMIN / CREATININE RATIO, URINE Routine 07/30/2023 3:14 PM EST HTN, goal below 130/80 Uncontrolled hypertension documented in this encounter Results * (ABNORMAL) URINALYSIS WITH MICROSCOPIC EXAM (07/30/2023 3:14 PM EST) Color, Urine Yellow Colorless, Light Yellow, Yellow, Dark Yellow 07/30/2023 11:58 PM EST [facility] Clarity, Urine Clear Clear 07/30/2023 11:58 PM EST [facility] Glucose, Urine Negative Negative mg/dL 07/30/2023 11:58 PM EST [facility] Bilirubin, Urine Negative Negative 07/30/2023 11:58 PM EST [facility] Ketone, Urine Negative Negative mg/dL 07/30/2023 11:58 PM EST [facility] Specific [place], Urine 1.019 1.003 - 1.030 07/30/2023 11:58 PM EST [facility] Blood, Urine Negative Negative 07/30/2023 11:58 PM EST [facility] pH, Urine 6.0 5.0 - 7.5 Units 07/30/2023 11:58 PM EST [facility] Protein, Urine Trace(A) Negative mg/dL 07/30/2023 11:58 PM EST [facility] Urobilinogen, Urine 2.0(A) Normal mg/dL 07/30/2023 11:58 PM EST [facility] Nitrite, Urine Negative Negative 07/30/2023 11:58 PM EST [facility] Esterase, Urine Negative Negative 07/30/2023 11:58 PM EST [facility] RBC, Urine 0-2 0 - 2 /HPF 07/30/2023 11:58 PM EST [facility] WBC, Urine 0-2 0 - 2 /HPF 07/30/2023 11:58 PM EST [facility] Bacteria, Urine 0-25 0 - 25 /HPF 07/30/2023 11:58 PM EST [facility] Hyaline, Cast, Urine 10-19(A) None /LPF 07/30/2023 11:58 PM EST [facility] Urine Urine specimen obtained by clean catch procedure / Unknown Non-blood Collection / Unknown 07/30/2023 3:14 PM EST 07/30/2023 3:14 PM EST Regina Alonso MD LAB URINE ORDERAB LES Performing Organization Address City/[facility] Co de Phone Number [facility]ATORY [facility] [place] [address] [place] [address] * (ABNORMAL) ALBUMIN / CREATININE RATIO, URINE (07/30/2023 3:14 PM EST) Albumin, Random Urine 4.99 mg/dL 07/31/2023 12:19 AM EST [facility]ORATORY [facility] [place] Creatinine, Random Urine 128 mg/dL 07/31/2023 12:19 AM EST [facility] [place] Albumin / Creatinine Ratio, Urine 39(H) <30 mg/g Creat 07/31/2023 12:19 AM EST [facility]AT[facility] [place] Urine Urine specimen obtained by clean catch procedure / Unknown Non-blood Collection / Unknown 07/30/2023 3:14 PM EST 07/30/2023 3:14 PM EST Narrative [facility]AT[facility] [place] 07/31/2023 12:19 AM EST Normal: <30 mg/g creatinine High: 30-300 mg/g creatinine Very High: >300 mg/g creatinine Nephrotic: >2200 mg/g creatinine Regina Alonso MD LAB URINE ORDERAB LES Performing Organization Address [facility] [facility] Co de Phone Number [place] [facility] [place] [address] [place] [address] documented in this encounter Visit Diagnoses Diagnosis HTN, goal below 130/80- Primary Unspecified essential hypertension Uncontrolled hypertension Unspecified essential hypertension Stage 3b chronic kidney disease (HCC) Stage 2 hypertension White coat syndrome with diagnosis of hypertension documented in this encounter Advance Directives Latest [...] and were consensually agreed upon. Care Teams Pocketbook Maker Relationship Specialty Start Date End Date Raheem Edwards MD [address] [place] [address] PCP - General 01/11/04 documented as of this encounter
--- OUTSIDE RECORDS SUMMARY | 2023-08-28 15:09 | External Medical Summary | Summary of Care ---
Author Name Unknown Organization [facility] Address [address] [facility] [place] [address] Phone [phone] Care Team Providers Care Production Supv Name Role Phone Nick Edwards MD Primary Care Provider [phone] Encounter Details Date Type Department Care Team (Late st Contact Info) Description 08/14/[address] [facility] [address] [place] [address] Nick Edwards MD [address] [place] [address] Allergies Active Allergy Reactions Criticality Noted Date Comments Felodipine 11/17/2000 plendil Empagliflozin Diarrhea High 06/03/2022 documented as of this encounter (statuses as of 08/18/2023) Medications Medication Sig Dispensed Refills Start Date [...] 06/08/2023 Active Allopurinol 100 MG Oral Tablet (Zyloprim)Indicati ons:Gouty arthropathy TAKE ONE TABLET BY MOUTH DAILY OR DIRECTED 90 Tablet 1 06/09/2023 Active Furosemide 40 MG Oral Tablet (Lasix)Indications :Acute diastolic heart failure (HCC) Take 0.5 Tablets by mouth in the morning. 0 06/17/2023 Active documented as of this encounter (statuses as of 08/18/2023) Active Problems Problem Noted Date Diagnosed Date [...] as of this encounter (statuses as of 08/18/2023) Resolved Problems Problem Noted Date Diagnosed Date [...] as of this encounter (statuses as of 08/18/2023) Immunizations Name Administration Dates Next Due COVID-19 [...] No 04/21/2023 documented as of this encounter Miscellaneous Notes * Telephone Encounter - Amaris Fox OSA - 08/14/2023 11:06 AM EST 08/14/23 Successfully faxed [employer] paperwork for pts testing supplies. Paperwork was sent to [facility] to be added to pts chart. Paperwork filed in the filing cabinet near the SCADA Access machine. documented in this encounter Plan of Treatment Upcoming Encounters Date Type Department Care Team (Late st Contact Info) Description 11/03/2023 10:30 AM EDT Office Visit Cardiology, [facility] [address] [facility] [place] [address] Randi Mendoza PA-C [address] [place] [address] 11/05/2023 11:20 AM EDT Office Visit [facility] [address] [place] [phone] Nick Edwards MD [address] [place] [address] 05/10/2024 1:40 PM EST Office Visit Nephrology, [facility] [address] [facility] [address] [place] [address] Regina Alonso MD [address] [place] [address] Health Maintenance Due Date Last Done Comments Depression Screening 03/29/2021 03/29/2020 COVID-19 Vaccine (5 - 2022-2 4 season) 2023 05/21/2022, 04/03/2021, 09/14/2020, Additional history exists Zoster Vaccines Completed 08/25/2022, 05/07, 11/17/2012 Influenza Vaccine (FLU shot) Completed 05/2023, 04/10/2022, 04/15/2021, Additional history exists documented as of this encounter Medical Devices Implanted Type Area Retail Sales Professional Device Identifier Shelf Expiration Date Model / Serial / Lot Valve Heart Trifec Aortic 23mm - [id number] Implanted:Qty : 1 on 05/16/2014 at [place] [facility] [place] N/A: Aorta ST JUAN : CARDIOVASCULAR 07/25/2015 TF-23A / [id number] / Stent Synergy Xd Mr [id number] - [id number] Implanted:Qty : 1 on 04/21/2023 by Christopher Moreno MD at [facility]ARDIAC LAB[facility] [place] [employer] [id number] 10/14/2023 [id number] / / [id number] documented as of this encounter Advance Directives [...] and were consensually agreed upon. Care Teams Production Supv Relationship Specialty Start Date End Date Nick Edwards MD [address] [place] [address] PCP - General 01/11/04 documented as of this encounter
--- OUTSIDE RECORDS SUMMARY | 2023-08-28 15:09 | External Medical Summary ---
Author Name Unknown Address Unknown Organization K01:LABORATORY [facility] [place] - [facility] [address] [place] [address] Laboratory Report Ordering Provider Test Date Status RACHELLE MACIEL 06/30/2023 12:37:21 Final Observation Date Value Abnormality Reference (Units ) Status BUN 06/30/2023 12:37:21 43 Above high normal 6-20 (mg/dL) Final Creatinine 06/30/2023 12:37:21 1.8 Above high normal 0.6-1.2 (mg/dL) Final Glomerular filtration rate/1.73 sq M.predicted [Volume Rate/Area] in Serum, Plasma or Blood by Creatinine-based formula (CKD-EPI) 06/30/2023 12:37:21 38 Below low normal >=60 (mL/min) Final eGFR is calculated based on the CKD-EPI 2020 equation SODIUM 06/30/2023 12:37:21 140 135-146 (m mol/L) Final Potassium 06/30/2023 12:37:21 4.7 3.5-5.1 (m mol/L) Final Cl 06/30/2023 12:37:21 108 Above high normal 98 -107 (mmol/L) Final CO2 06/30/2023 12:37:21 23 22-32 (mmo l/L) Final Anion gap 06/30/2023 12:37:21 9 7-15 (mmol /L) Final Glucose 06/30/2023 12:37:21 101 70-120 (mg /dL) Final Calcium 06/30/2023 12:37:21 8.3 Below low normal 8.4 -10.2 (mg/dL) Final Performing Location LABORATORY [facility] [place] - [facility] [address] [place] [address]
--- OUTSIDE RECORDS SUMMARY | 2023-08-28 15:09 | External Medical Summary | Summary of Care ---
Author Name Unknown Organization [facility] Address [address] [facility] [place] [address] Phone [phone] Care Team Providers Care Casting Inspector Name Role Phone Nick Edwards MD Primary Care Provider [phone] Reason for Visit * Reason Comments Outpatient Testing Encounter Details Date Type Department Care Team (Late st Contact Info) Description 07/30/2023 3:10 PM EST Laboratory Laboratory [facility] [place] [address] [place] [address] [facility] [address] [place] [address] Arrived Allergies Active Allergy Reactions Criticality Noted Date [...] mRNA, LNP-s, No Pre serve, 2-Dose Series ([employer]) 04/03/2021,09/14/2020,08/17/2020 Influenza, Whole Virus 05/03/2018,07/24/2006 Pneumococcal Conjugate [...] 11/03/2023 10:30 AM EDT Office Visit Cardiology, [facility] [address] [place] [address] Randi Mendoza PA-C [address] [place] [address] 11/05/2023 11:20 AM EDT Office Visit [facility] [address] [place] [phone] Nick Edwards MD [address] [place] [address] 05/10/2024 1:40 PM EST Office Visit Nephrology, [facility] [address] [facility] [place] [address] Regina Alonso MD [address] [facility] [place] [address] Health Maintenance Due Date Last Done Comments Depression Screening 03/29/2021 03/29/2020 COVID-19 Vaccine (2022- 4 season) 2023 05/21/2022, 04/03/2021, 09/14/2020, Additional history exists Zoster Vaccines Completed 08/25/2022, 05/07, 11/17/2012 Influenza Vaccine (FLU shot) Completed 05/2023, 04/10/2022, 04/15/2021, Additional history exists documented as of this encounter Medical Devices Implanted Type Area Construction Administrative Assistant Device Identifier Shelf Expiration Date Model / Serial / Lot Valve Heart Trifec Aortic 23mm - [id number] Implanted:Qty : 1 on 05/16/2014 at [place] [facility] [place] N/A: Aorta ST JUAN : CARDIOVASCULAR 07/25/2015 TF-23A / [id number] / Stent Synergy Xd Mr [id number] - [id number] Implanted:Qty : 1 on 04/21/2023 by Christopher Moreno MD at [facility] [place] [facility] [place] [employer] [id number] 10/14/2023 [id number] / / [id number] documented as of this encounter Advance Directives [...] and were consensually agreed upon. Care Teams Casting Inspector Relationship Specialty Start Date End Date Nick Edwards MD [address] [place] [facility] [place] [address] PCP - General 01/11/04 documented as of this encounter
--- OUTSIDE RECORDS SUMMARY | 2023-08-28 15:09 | External Medical Summary | Summary of Care ---
Author Name Unknown Organization [facility] Address [address] [facility] [place] [address] Phone [phone] Care Team Providers Care Media Consultant Outside Sales Name Role Phone Nick Edwards MD Primary Care Provider [phone] Reason for Visit * Reason Comments Follow Up Encounter Details Date Type Department Care Team (Late st Contact Info) Description 07/14/2023 10:00 AM EST [facility] [address] [place] [address] Sujey Vega, [address] [place] [address] SANDI (obstructive sleep apnea)* Allergies Active Allergy Reactions Criticality Noted Date Comments Felodipine 11/17/2000 plendil Empagliflozin Diarrhea High 06/03/2022 documented as of this encounter (statuses as of 07/14/2023) Medications Medication Sig Dispensed Refills Start Date [...] as of this encounter (statuses as of 07/14/2023) Active Problems Problem Noted Date Diagnosed Date [...] as of this encounter (statuses as of 07/14/2023) Resolved Problems Problem Noted Date Diagnosed Date [...] as of this encounter (statuses as of 07/14/2023) Immunizations Name Administration Dates Next Due COVID-19 [...] Date Smoking Tobacco: Never Smokeless Tobacco: Never Tobacco Cessation:Counseling Given: Not Answered Alcohol Use Standard Drinks/Week Comments Yes 0 [...] Sign Reading Time Taken Comments Blood Pressure 120/62 07/14/2023 8:56 AM EST Pulse 70 07/14/2023 8:56 AM EST Temperature - - Respiratory Rate 18 07/14/2023 8:56 AM EST Oxygen Saturation 92% 07/14/2023 8:56 AM EST Inhaled Oxygen Concentration - - Weight 95.3 kg (210 lb 1.6 oz) 07/14/2023 8:56 A M EST Height 179.5 cm (5' 10.67") 07/14/2023 8:[address] Body Mass Index 29.58 07/14/2023 8:56 AM EST documented in this [...] No 04/21/2023 documented as of this encounter Progress Notes * Sujey Vega, - 07/14/2023 9:06 AM EST Sleep Medicine Follow-Up Clinic Note HISTORY: Mr. Gregorio Davidson is a 82 year old male w/ a pmh of HTN, aortic valve disease, pulmonary hypertension, and DM who is in clinic today for follow up of Obstructive Sleep Apnea. Mr. Davidson is tolerating his PAP well. For a time, he has having trouble breathing at night, but since his valve replacement on April 21 that has resolved. Denies significant leak, prolonged facial sosa from mask, consistent aerophagia, dry eyes/nose/mouth, and feeling the pressure is too much or too little. Overnight Oximetry 10/29/22 SpO2<= 89% 00:03:34 SpO2<= 88% 00:02:03 SpO2 adalid 83% PAP DL confirms overlapping PAP usage ([id number]; AHI 1.5) Travel Screening Question 07/14/2023 9:00 AM EST - Filed by Patient Do you have any of the following new or worsening symptoms? None of these Have you recently been in contact with someone who was sick? No / Unsure Satanta Sleepiness Scale Question 07/14/2023 9:01 AM EST - Filed by Patient What is the chance you will doze off in the following situation? Sitting and reading Slight chance of dozing Watching TV No chance of dozing Sitting inactive in a public place, such as a theater or meeting Slight chance of dozing As a passenger in a car for an hour without a break No chance of dozing Lying down to rest in the afternoon when circumstances permit Slight chance of dozing When sitting and talking to someone No chance of dozing When sitting quietly after lunch without alcohol Slight chance of dozing In a car, while stopped for a few minutes in traffic No chance of dozing Score (range: 0 - 24) 4 PAP Compliance: Report date: 04/15/23 to 07/13/23 % total days used: 100% % days used > 4 hours: 100% Average hours a day: 10 hours 26 mins Large leak: 12.8 AHI: 0.2/hr Equipment: DME Provider is Kamala 12 cmH20. 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 S/P AVR Z95.2 HTN, goal below 140/90 I10 CKD (chronic kidney disease) stage 3, GFR 30-59 ml/min (HCC) N18.30 Hypertensive kidney disease with stage 3 chronic kidney disease (HCC) I12.9, N18.30 Heart failure (HCC) I50.9 Pulmonary hypertension (HCC) I27.20 Prediabetes R73.03 Type 2 diabetes mellitus with hemoglobin A1c goal of less than 8.0% (HCC) E11.9 Type 2 diabetes mellitus with hemoglobin A1c goal of less than 8.0% (HCC) E11.9 Other cirrhosis of liver (HCC) K74.69 Chronic atrial fibrillation (HCC) I48.20 S/P TAVR (transcatheter aortic valve replacement) Z95.2 Type 2 diabetes mellitus with diabetic peripheral angiopathy without gangrene (HCC) E11.51 Type 2 diabetes mellitus with diabetic peripheral angiopathy without gangrene (HCC) E11.51 Type 2 diabetes mellitus with diabetic peripheral angiopathy without gangrene (HCC) E11.51 Outpatient Medications Marked as Taking for the 07/14/23 encounter (Office Visit) with Vega, KatelynGray, DO Medication Sig Furosemide 40 MG Oral Tablet (Lasix) Take 0.5 Tablets by mouth in the morning. Allopurinol 100 MG Oral Tablet (Zyloprim) TAKE ONE TABLET BY MOUTH DAILY OR DIRECTED hydrALAZINE HCl 10 MG Oral Tablet (Apresoline) TAKE 1/2 TABLETS BY MOUTH IN THE MORNING AND 1/2 TABLETS BEFORE BEDTIME. Lisinopril 10 MG Oral Tablet (Prinivil) Take 0.5 Tablets by mouth in the morning. Pantoprazole Sodium 40 MG Oral Tablet Delayed Release (Protonix) Take 1 Tablet by mouth in the morning and 1 Tablet in the evening. CPAP by Device route every night at bedtime. Clopidogrel Bisulfate 75 MG Oral Tablet (pLAVix) Take 1 Tablet by mouth in the morning. TRUEplus Lancets 33G 2X'S A DAY DX E11.9 Carvedilol 3.125 MG Oral Tablet (Coreg) 1/2 tab twice daily Ferrous Sulfate 325 (65 Fe) MG Oral Tablet (Feosol) Take 1 Tablet by mouth in the morning. Atorvastatin Calcium 40 MG Oral Tablet (Lipitor) Take 1 Tablet by mouth every evening. OneTouch Ultra Blue In Vitro Strip (Glucose Blood) 2X'S A DAY DX E11.9 FOLIC ACID 0.8 MG PO CAPS Take 1 Capsule by mouth daily. [facility] VITAMIN B-1 100 MG PO TABS Take 1 Tablet by mouth daily. VITAMIN B-12 500 MCG PO TABS Take 1 Tablet by mouth daily. VITAMIN D3 1000 UNITS PO TABS Take 1 Tablet by mouth daily. ASPIRIN TABS 81 MG OR Take 1 Tablet by mouth daily. PHYSICAL EXAM: BP 120/62 | Pulse 70 | Resp 18 | Ht 1.795 m (5' 10.67") | Wt 95.3 kg (210 lb 1.6 oz) | SpO2 92% | BMI 29.58 kg/m | BSA 2.18 m Constitutional: Alert, oriented in no acute distress Skin: no markings on face where mask fits Chest: Normal respiratory effort at rest Neuro: Normal speech and comprehension Psych: Appropriate mood and affect ASSESSMENT/PLAN: Obstructive Sleep Apnea Encouraged continued use of PAP every night, all night and for naps. Continue PAP at current setting Recommended routine cleaning and change of supplies as needed. Even a mild to moderate weight loss should result in significant improvement in the patients nocturnal respiratory events. Avoid driving, operating heavy machinery or engaging in any activity that requires full alertness if feeling sleepy, drowsy or otherwise impaired. Follow-up with Sleep Medicine in 1 year. Sujey Vega DO I spent a total of 20-29 minutes (exact time 28 mins) on the date of service in preparation, delivery, and documentation of the care provided to Gregorio Davidson excluding any time spent in the performance of separately billed services. documented in this encounter Nursing Notes * Josh Hansen RRT - 07/14/2023 9:01 AM EST Gregorio Davidson was identified by name, Date of and MR# [id number] . Body mass index is 29.58 kg/m. 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 Do you have difficulty concentrating on things you do because you are sleepy or tired?No Q2. Do you generally have difficulty remembering things because you are sleepy or tired?No Q3. Do you have difficulty operating a motor vehicle for short distances (less than 100 miles) because you become sleepy? No Q4. Do you have difficulty operating a motor vehicle for long distances (greater than 100 miles) because you become sleepy?No Q5. Do you have difficulty visiting your family or friends in their home because you become sleepy or tired?No Q6. Has your relationship with family, friends or work colleagues been affected because you are sleepy or tired?No Q7. Do you have difficulty watching a movie or video because you become sleepy or tired?No Q8. Do you have difficulty being as active as you want to be in the evening because you are sleepy or tired?No Q9. Do you have difficulty being as active as you want to be in the morning because you are sleepy or tired?No Q10. Has your mood been affected because you are sleepy or tired? No Travel Screening Question 07/14/2023 9:00 AM EST - Filed by Patient Do you have any of the following new or worsening symptoms? None of these Have you recently been in contact with someone who was sick? No / Unsure Sat[place] Sleepiness Scale Question 07/14/2023 9:01 AM EST - Filed by Patient What is the chance you will doze off in the following situation? Sitting and reading Slight chance of dozing Watching TV No chance of dozing Sitting inactive in a public place, such as a theater or meeting Slight chance of dozing As a passenger in a car for an hour without a break No chance of dozing Lying down to rest in the afternoon when circumstances permit Slight chance of dozing When sitting and talking to someone No chance of dozing When sitting quietly after lunch without alcohol Slight chance of dozing In a car, while stopped for a few minutes in traffic No chance of dozing Score (range: 0 - 24) 4 documented in this encounter Plan of Treatment Upcoming Encounters Date Type Department Care Team (Late st Contact Info) Description 07/30/2023 2:00 PM EST Office Visit Nephrology, [facility] [address] [facility] [place] [address] Regina Alonso MD [address] [facility] [place] [address] 11/03/2023 10:30 AM EDT Office Visit Cardiology, [facility] [address] [place] [address] Randi Mendoza PA-C [address] [place] [address] 11/05/2023 11:20 AM EDT Office Visit [facility] [address] [place] [phone] Nick Edwards MD [address] [place], [place] [phone] Health Maintenance Due Date Last Done Comments Depression Screening 03/29/2021 03/29/2020 COVID-19 Vaccine (2022-2 4 season) 2023 05/21/2022, 04/03/2021, 09/14/2020, Additional history exists Zoster Vaccines Completed 08/25/2022, 05/07, 11/17/2012 Influenza Vaccine (FLU shot) Completed 05/2023, 04/10/2022, 04/15/2021, Additional history exists documented as of this encounter Medical Devices Implanted Type Area Supervisor Billposting Device Identifier Shelf Expiration Date Model / Serial / Lot Valve Heart Trifec Aortic 23mm - [id number] [place] [facility] [place] Aorta ST JUAN : CARDIOVASCULAR 07/25/2015 TF-23A / [id number] / Stent Synergy Xd Mr 4.08t96za - [id number] Implanted:Qty : 1 on 04/21/2023 by Christopher Moreno [place] [facility] [place] [employer] [id number] 10/14/2023 [id number] / / [id number] documented as of this encounter Visit Diagnoses Diagnosis SANDI (obstructive sleep apnea)- Primary Obstructive sleep apnea (adult) (pediatric) documented in this encounter Advance Directives Latest [...] and were consensually agreed upon. Care Teams Media Consultant Outside Sales Relationship Specialty Start Date End Date Nick Edwards MD [address] [place], [place] [phone] PCP - General 01/11/04 documented as of this encounter
--- OUTSIDE RECORDS SUMMARY | 2023-08-28 15:09 | External Medical Summary ---
Author Name Unknown Address Unknown Organization K01:LABORATORY [facility] - [address] [facility] [address] [place] [address] Laboratory Report Ordering Provider Test Date Status JAVY HUFFMAN 07/30/2023 15:14:20 Final Observation Date Value Abnormality Reference (Units ) Status Color of Urine by Auto 07/30/2023 15:14:20 Yellow Colorless, Light Yellow, Yellow, Dark Yellow Final Clarity, Urine 07/30/2023 15:14:20 Clear Clear Final Glucose [Mass/volume] in Urine by Automated test strip 07/30/2023 15:14:20 Negative Negative (mg/dL) Final Bilirubin.total [Presence] in Urine by Automated test strip 07/30/2023 15:14:20 Negative Negative Final Ketones [Mass/volume] in Urine by Automated test strip 07/30/2023 15:14:20 Negative Negative (mg/dL) Final Specific gravity, Urine 07/30/2023 15:14:20 1.019 1.003-1.030 Final Hemoglobin [Presence] in Urine by Automated test strip 07/30/2023 15:14:20 Negative Negative Final pH, Urine 07/30/2023 15:14:20 6.0 5.0-7.5 (Units) Final Protein [Mass/volume] in Urine by Automated test strip 07/30/2023 15:14:20 Trace Abnormal Negative (mg/dL) Final Urobilinogen [Mass/volume] in Urine by Automated test strip 07/30/2023 15:14:20 2.0 Abnormal Normal (mg/dL) Final Nitrite [Presence] in Urine by Automated test strip 07/30/2023 15:14:20 Negative Negative Final Leukocyte esterase [Presence] in Urine by Automated test strip 07/30/2023 15:14:20 Negative Negative Final RBC, Urine 07/30/2023 15:14:20 0-2 0-2 (/HPF) Final WBC, Urine 07/30/2023 15:14:20 0-2 0-2 (/HPF) Final Bacteria [#/area] in Urine sediment by Microscopy high power field 07/30/2023 15:14:20 0-25 0-25 (/HPF) Final Hyaline casts, Urine 07/30/2023 15:14:20 10-19 Abnormal None (/LPF) Final Performing Location [place] [facility] [place] [facility] [address] [facility] [address]
--- OUTSIDE RECORDS SUMMARY | 2023-08-28 15:09 | External Medical Summary | Summary of Care ---
Author Name Unknown Organization [facility] Address [address] [facility] [place] [address] Phone [phone] Care Team Providers Care Program Director Substance Abuse Name Role Phone Nick Edwards MD Primary Care Provider [phone] Reason for Visit * Reason Onset Date Comments Medication Refill 07/10/2023 Encounter Details Date Type Department Care Team (Late st Contact Info) Description 07/10/2023 Telephone [facility] [address] [place] [address] Nick Edwards MD [address] [place] [address] Medication Refill Allergies Active Allergy Reactions Criticality Noted Date Comments Felodipine 11/17/2000 plendil Empagliflozin Diarrhea High 06/03/2022 documented as of this encounter (statuses as of 07/10/2023) Medications Medication Sig Dispensed Refills Start Date [...] as of this encounter (statuses as of 07/10/2023) Active Problems Problem Noted Date Diagnosed Date [...] as of this encounter (statuses as of 07/10/2023) Resolved Problems Problem Noted Date Diagnosed Date [...] as of this encounter (statuses as of 07/10/2023) Immunizations Name Administration Dates Next Due COVID-19 [...] (15 years old or older) No 04/21/20 23 Cognitive Status Response Date of Assessm ent Because of a physical, menta l, or emotional condition, do you have serious difficulty concentrating, remembering, or making decisions? (5 years old or older) No 04/21/2023 documented as of this encounter Miscellaneous Notes * Telephone Encounter - Bryan Temple cath lab radiology technician - 07/10/2023 2:31 PM EST Pt calling stating he is out of Plavix and [facility] will not refill prescription for two weeks. Placed outgoing call to [facility] who confirmed rx available at their pharmacy. Caller verbalized understanding. Thank you, Bryan Temple Machine Pie Maker [facility] ([facility]formerly [facility]) 07/10/2023,2:37 PM documented in this encounter Plan of Treatment Upcoming Encounters Date Type Department Care Team (Late st Contact Info) Description 07/14/2023 10:00 AM EST Office Visit Sleep Disorders Ctr [facility] [address] [place] [phone] Sujey Vega DO [address] [place] [address] 07/30/2023 2:00 PM EST [facility] [address] [place] [address] Regina Alonso MD [address] [place] [address] 11/03/2023 10:30 AM EDT Office Visit Cardiology, [facility] [address] [place] [address] Randi Mendoza, MICHELLE [address] [place] [address] 11/05/2023 11:20 AM EDT Office Visit [facility] [address] [facility] [address] Nick Edwards MD [address] [facility] [place] [id number] Health Maintenance Due Date Last Done Comments Depression Screening 03/29/2021 03/29/2020 COVID-19 Vaccine (2022-08 4 season) 2023 05/21/2022, 04/03/2021, 09/14/2020, Additional history exists Zoster Vaccines Completed 08/25/2022, 05/07, 11/17/2012 Influenza Vaccine (FLU shot) Completed 05/2023, 04/10/2022, 04/15/2021, Additional history exists documented as of this encounter Medical Devices Implanted Type Area Roll Forger Device Identifier Shelf Expiration Date Model / Serial / Lot Valve Heart Trifec Aortic 23mm - [id number] Implanted:Qty : 1 on 05/16/2014 at OR [facility] N/A: Aorta ST JUAN : CARDIOVASCULAR 07/25/2015 TF-23A / [id number] / Stent Synergy Xd Mr [id number] - [id number] Implanted:Qty : 1 on 04/21/2023 by Christopher Moreno MD at [facility]ARDIAC LABS [facility] [employer] [id number] 10/14/2023 [id number] / / [id number] documented as of this encounter Advance Directives [...] and were consensually agreed upon. Care Teams Program Director Substance Abuse Relationship Specialty Start Date End Date Nick Edwards MD [address] [place] [address] PCP - General 01/11/04 documented as of this encounter
--- OUTSIDE RECORDS SUMMARY | 2023-08-28 15:09 | External Medical Summary | Summary of Care ---
Author Name Unknown Organization [facility] Address [address] [facility] [place] [address] Phone [phone] Care Team Providers Care Manager Legal Name Role Phone Raheem Edwards MD Primary Care Provider [phone] Reason for Visit * Reason Comments eRx-Medication Refill Encounter Details Date Type Department Care Team (Late st Contact Info) Description 08/19/2023 Refill [facility] [address] [place] [address] Raheem Edwards MD [address] [place] [address] Diastolic heart failure, unspecified HF chronicity (HCC) Allergies Active Allergy Reactions Criticality Noted Date Comments Felodipine 11/17/2000 plendil Empagliflozin Diarrhea High 06/03/2022 documented as of this encounter (statuses as of 08/19/2023) Medications Medication Sig Dispensed Refills Start Date [...] 01/20/2022 Active Amoxicillin 500 MG Oral Capsule (Amoxil)Indicati ons:S/P AVR TAKE 4 CAPSULES BY MOUTH 1/2 HOUR BEFORE DENTAL APPOINTMENT 4 Capsule 2 03/29/2022 Active Atorvastatin Calcium 40 MG Oral Tablet (Lipitor)Indicat ions:Dyslipidemi a, goal LDL below 100 Take 1 Tablet by mouth every evening. 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 90 Tablet 3 01/05/2023 Active TRUEplus Lancets 33G 2X'S A DAY DX E11.9 200 Each 3 02/27/2023 Active Clopidogrel Bisulfate 75 MG Oral Tablet (pLAVix) Take 1 Tablet by mouth in the morning. 90 Tablet 3 04/09/2023 Active CPAP by Device route every night at bedtime. 0 Active Pantoprazole Sodium 40 MG Oral Tablet Delayed Release (Protonix)Indica tions:Gastrointe stinal hemorrhage associated with gastric ulcer Take 1 Tablet by mouth in the morning and 1 Tablet in the evening. 180 Tablet 3 05/06/2023 4 Active hydrALAZINE HCl 10 MG Oral Tablet (Apresoline)Lauren cations:Diastoli c heart failure, unspecified HF chronicity (HCC) TAKE 1/2 TABLETS BY MOUTH IN THE MORNING AND 1/2 TABLETS BEFORE BEDTIME. 90 Tablet 3 06/08/2023 Active Allopurinol 100 MG Oral Tablet (Zyloprim)Indica tions:Gouty arthropathy TAKE ONE TABLET BY MOUTH DAILY OR DIRECTED 90 Tablet 1 06/09/2023 Active Furosemide 40 MG Oral Tablet (Lasix)Indicatio ns:Acute diastolic heart failure (HCC) Take 0.5 Tablets by mouth in the morning. 0 06/17/2023 Active Carvedilol 3.125 MG Oral Tablet (Coreg)Indicatio ns:Diastolic heart failure, unspecified HF chronicity (HCC) TAKE 1/2 TABLET BY MOUTH TWICE DAILY 90 Tablet 1 08/19/2023 Active Carvedilol 3.125 MG Oral Tablet (Coreg)Indicatio ns:Diastolic heart failure, unspecified HF chronicity (HCC) 1/2 tab twice daily 90 Tablet 1 02/24/2023 4 Discontinued documented as of this encounter (statuses as of 08/19/2023) Active Problems Problem Noted Date Diagnosed Date [...] as of this encounter (statuses as of 08/19/2023) Resolved Problems Problem Noted Date Diagnosed Date [...] as of this encounter (statuses as of 08/19/2023) Immunizations Name Administration Dates Next Due COVID-19 [...] encounter Miscellaneous Notes * Telephone Encounter - Jose Antonio Soni, [facility] - 08/19/2023 3:43 PM ESTSigned Prescriptions: Disp Refills Carvedilol 3.125 MG Oral Tablet (Coreg) 90 Tab*1 Sig: TAKE 1/2 TABLET BY MOUTH TWICE DAILYAuthorizing Provider: RAHEEM EDWARDS User: JOSE ANTONIO KIM------ documented in this encounter Plan of Treatment Upcoming Encounters Date Type Department Care Team (Late st Contact Info) Description 11/03/2023 10:30 AM EDT Office Visit Cardiology, [facility] [address] [place] [address] Randi Mendoza PA-C [address] [place] [address] 11/05/2023 11:20 AM EDT Office Visit [facility] [address] [place] [address] Raheem Edwards MD [address] [place] [address] 05/10/2024 1:40 PM EST Office Visit Nephrology, [facility] [address] [place] [address] Regina Alonso MD 200 [facility] [place] [address] Health Maintenance Due Date Last Done Comments Depression Screening 03/29/2021 03/29/2020 COVID-19 Vaccine (2022- 4 season) 2023 05/21/2022, 04/03/2021, 09/14/2020, Additional history exists Zoster Vaccines Completed 08/25/2022, 05/07, 11/17/2012 Influenza Vaccine (FLU shot) Completed 05/2023, 04/10/2022, 04/15/2021, Additional history exists documented as of this encounter Medical Devices Implanted Type Area Small Stock Facer Device Identifier Shelf Expiration Date Model / Serial / Lot Valve Heart Trifec Aortic 23mm - [id number] Implanted:Qty : 1 on 05/16/2014 at OR [facility] N/A: Aorta ST JUAN : CARDIOVASCULAR 07/25/2015 TF-23A / [id number] / Stent Synergy Xd Mr 4.83y28fs - [id number] Implanted:Qty : 1 on 04/21/2023 by Christopher Moreno MD at [facility]ARDIAC LABS [facility] [employer] [id number] 10/14/2023 [id number] / / [id number] documented as of this encounter Visit Diagnoses Diagnosis Diastolic heart failure, unspecified HF chronicity (HCC) documented in this encounter Advance Directives Latest [...] and were consensually agreed upon. Care Teams Manager Legal Relationship Specialty Start Date End Date Raheem Edwards MD [address] [facility] [place] [address] PCP - General 01/11/04 documented as of this encounter
--- OUTSIDE RECORDS SUMMARY | 2023-08-28 15:10 | External Medical Summary | Summary of Care ---
Author Name Unknown Organization [facility] Address [address] [facility] [place] [address] Phone [phone] Care Team Providers Care Musical Instrument Supervisor Name Role Phone Nick Edwards MD Primary Care Provider Reason for Visit * Reason Comments Outpatient Testing Encounter Details Date Type Department Care Team (Late st Contact Info) Description 06/05/2023 1:30 PM EST Laboratory Laboratory, [facility] [address] [facility] [place] [phone] [facility] [address] [facility] [place] [address] Stage 3b chronic kidney disease (HCC); Diastolic heart failure, unspecified HF chronicity (HCC); Encounter for monitoring diuretic therapy; History of transcatheter aortic valve replacement (TAVR); Stage 2 hypertension Allergies Active Allergy Reactions Criticality Noted Date Comments Felodipine 11/17/2000 plendil Empagliflozin Diarrhea High 06/03/2022 documented as of this encounter (statuses as of 06/05/2023) Medications Medication Sig Dispensed Refills Start Date [...] every evening. 90 Tablet 3 11/19/2022 Active Allopurinol 100 MG Oral Tablet (Zyloprim)Indicati ons:Gouty arthropathy TAKE ONE TABLET BY MOUTH DAILY OR DIRECTED 90 Tablet 1 12/18/2022 Active Ferrous Sulfate 325 (65 Fe) MG [...] evening. 180 Tablet 3 05/06/2023 04/30/2024 Active Furosemide 40 MG Oral Tablet (Lasix)Indications :Acute diastolic heart failure (HCC) TAKE 1.5 TABLET BY MOUTH EVERY DAY IN THE MORNING 90 Tablet 3 05/05/2023 Active Lisinopril 10 MG Oral Tablet (Prinivil) Take 1 Tablet by mouth in the morning. 30 Tablet 5 05/05/2023 Active documented as of this encounter (statuses as of 06/05/2023) Active Problems Problem Noted Date Diagnosed Date [...] as of this encounter (statuses as of 06/05/2023) Resolved Problems Problem Noted Date Diagnosed Date [...] as of this encounter (statuses as of 06/05/2023) Immunizations Name Administration Dates Next Due COVID-19 mRNA, LNP-s, No Pre serve, 2-Dose Series (Pfizer) 04/03/2021,09/14/2020,08/17/2020 Influenza, Whole Virus 05/03/2018,07/24/2006 Pneumococcal Conjugate Vacc, 13 Valent (Prevnar) 01/18/2015 SEASONAL INFLUENZA, PF, 6 M & Above, IM , (FLULAVAL or FLUZONE) 03/29/2020,05/06/2017 Seasonal Influenza, Quadriva lent Hd (Fluzone [...] shopping? (15 years old or older) No 10/17/20 23 Cognitive Status Response Date of Assessm ent Because of a physical, menta l, or emotional condition, do you have serious difficulty concentrating, remembering, or making decisions? (5 years old or older) No 04/21/2023 documented as of this encounter Plan of Treatment Upcoming Encounters Date Type Department Care Team (Late st Contact Info) Description 06/23/2023 11:00 AM EST Office Visit Hepatology, [facility] 132 [facility] [place] [address] Rebekah Anguiano MD [address] [place] [address] 06/30/2023 1:00 PM EST Cardiac Studies Cardiac Studies, [facility] [address] [facility] [place] [address] 07/14/2023 10:00 AM EST Office Visit Sleep Disorders Ctr [facility] 132 [facility] [place] [phone] Sujey Vega DO [address] [facility] [address] 11/03/2023 10:30 AM EDT Office Visit Cardiology, [facility] [address] [facility] [place] [address] Randi Mendoza PA-C 132 [place] [address] 11/05/2023 11:20 AM EDT Office Visit [facility] [address] [place] [phone] Nick Edwadrs MD [address] [place] [address] 03/14/2024 1:40 PM EDT Office Visit Nephrology, [facility] 200 [facility] [place] [address] Regina Alonso MD [address] [place] [address], [place] [address] Pending Results Name Type Priority Associated Diagnoses Date /Time BASIC METABOLIC PANEL Lab Routine Stage 3b chronic kidney disease (HCC) Diastolic heart failure, unspecified HF chronicity (HCC) Encounter for monitoring diuretic therapy 06/05/2023 1:16 PM EST Health Maintenance Due Date Last Done Comments Depression Screening 03/29/2021 03/29/2020 COVID-19 Vaccine (2022-2 4 season) 2023 05/21/2022, 04/03/2021, 09/14/2020, Additional history exists Zoster Vaccines Completed 08/25/2022, 05/07, 11/17/2012 Influenza Vaccine (FLU shot) Completed 05/2023, 04/10/2022, 04/15/2021, Additional history exists documented as of this encounter Medical Devices Implanted Type Area Wireworker Supervisor Device Identifier Shelf Expiration Date Model / Serial / Lot Valve Heart Trifec Aortic 23mm - [id number] Implanted:Qty : 1 on 05/16/2014 at OR [facility] N/A: Aorta ST JUAN : CARDIOVASCULAR 07/25/2015 TF-23A / [id number] / Stent Synergy Xd Mr [id number] - [id number] Implanted:Qty : 1 on 04/21/2023 by Christopher Moreno MD at CARDIAC LABS [facility] [employer] [id number] 10/14/2023 [id number] / / [id number] documented as of this encounter Procedures Procedure Name Priority Date/Time Associated Diagnosis Comments CBC Routine 06/05/2023 1:16 PM EST History of transcatheter aortic valve replacement (TAVR) documented in this encounter Results * (ABNORMAL) CBC (06/05/2023 1:16 PM EST) WBC 5.56 4.00 - 10.80 K/uL 06/05/2023 2:36 PM EST [facility] [place]10 RBC 3.25 4.50 - 5.25 M/uL 06/05/2023 2:36 PM EST [facility] [place] 57-10 HGB 10.1(L) 14.0 - 16.8 g/dL 06/05/2023 2:36 PM EST [facility] [place] 57-10 HCT 32.0(L) 40.0 - 48.4 % 06/05/2023 2:36 PM EST [facility] [place] [facility]-10 MCV 98.5 82.0 - 99.5 fL 06/05/2023 2:36 PM EST [facility] [place] [facility]10 MCH 31.1 27.0 - 34.0 pg 06/05/2023 2:36 PM EST [facility] [place] [facility]10 MCHC 31.6 32.0 - 36.0 g/dL 06/05/2023 2:36 PM EST [facility] [place] [facility]10 RDW 14.3 11.5 - 15.5 % 06/05/2023 2:36 PM EST [facility] [place] 57-10 PLT 93(L) 140 - 400 K/uL 06/05/2023 2:36 PM EST [facility] [place] [facility]10 MPV 9.9 6.6 - 11.1 fL 06/05/2023 2:36 PM EST [facility] [place] 57-10 Blood Venous blood specimen / Unknown Venipuncture / Unknown 06/05/2023 1:16 PM EST 06/05/2023 1:16 PM EST Georgette PASCUAL LAB BLOOD ORDERABLES LAB[facility]ORY [facility] [place] 57-10 [address] [facility] [address] documented in this encounter Visit Diagnoses Diagnosis Stage 3b chronic kidney disease (HCC) Diastolic heart failure, unspecified HF chronicity (HCC) Encounter for monitoring diuretic therapy Encounter for therapeutic drug monitoring History of transcatheter aortic valve replacement (TAVR) Stage 2 hypertension documented in this encounter Advance Directives [...] and were consensually agreed upon. Care Teams Musical Instrument Supervisor Relationship Specialty Start Date End Date Nick Edwards MD [address] [facility] [place] [address] PCP - General 01/11/04 documented as of this encounter
--- OUTSIDE RECORDS SUMMARY | 2023-08-28 15:10 | External Medical Summary ---
Author Name Unknown Address Unknown Organization K01:[facility] [address] [facility] [address] [place] [address] Laboratory Report Ordering Provider Test Date Status RACHELLE MACIEL 06/15/2023 15:18:48 Final Observation Date Value Abnormality Reference (Units ) Status BUN 06/15/2023 15:18:48 77 Above high normal 6-20 (mg/dL) Final Creatinine 06/15/2023 15:18:48 2.6 Above high normal 0.6-1.2 (mg/dL) Final Glomerular filtration rate/1.73 sq M.predicted [Volume Rate/Area] in Serum, Plasma or Blood by Creatinine-based formula (CKD-EPI) 06/15/2023 15:18:48 24 Below low normal >=60 (mL/min) Final eGFR is calculated based on the CKD-EPI 2020 equation SODIUM 06/15/2023 15:18:48 137 135-146 (m mol/L) Final Potassium 06/15/2023 15:18:48 4.9 3.5-5.1 (m mol/L) Final Cl 06/15/2023 15:18:48 102 98-107 (mm ol/L) Final CO2 06/15/2023 15:18:48 23 22-32 (mmo l/L) Final Anion gap 06/15/2023 15:18:48 12 7-15 (mmol /L) Final Glucose 06/15/2023 15:18:48 244 Above high normal 70 -120 (mg/dL) Final Calcium 06/15/2023 15:18:48 8.6 8.4-10.2 ( mg/dL) Final Performing Location [facility] [address] [place] [address]
--- OUTSIDE RECORDS SUMMARY | 2023-08-28 15:10 | External Medical Summary | Summary of Care ---
Author Name Unknown Organization [facility] Address [address] [facility] [place] [address] Phone [phone] Care Team Providers Care Director Of Residential Services Name Role Phone Nick Edwards MD Primary Care Provider [phone] Reason for Visit * Reason Onset Date Comments Test Results 06/17/2023 Encounter Details Date Type Department Care Team (Late st Contact Info) Description 06/17/2023 Telephone Cardiology, [facility] [address] [place] [address] Nick Flores, PA-C [address] [place] [address] Test Results Allergies Active Allergy Reactions Criticality Noted Date Comments Felodipine 11/17/2000 plendil Empagliflozin Diarrhea High 06/03/2022 documented as of this encounter (statuses as of 06/17/2023) Medications Medication Sig Dispensed Refills Start Date [...] 06/05/2023 Active Allopurinol 100 MG Oral Tablet (Zyloprim)Indicat ions:Gouty arthropathy TAKE ONE TABLET BY MOUTH DAILY OR DIRECTED 90 Tablet 1 06/09/2023 Active Furosemide 40 MG Oral Tablet (Lasix)Indication s:Acute diastolic heart failure (HCC) Take 0.5 Tablets by mouth in the morning. 0 06/17/2023 Active Furosemide 40 MG Oral Tablet (Lasix)Indication s:Acute diastolic heart failure (HCC) TAKE 1.5 TABLET BY MOUTH EVERY DAY IN THE MORNING 90 Tablet 3 05/05/2023 Discontinue d(Refill) documented as of this encounter (statuses as of 06/17/2023) Active Problems Problem Noted Date Diagnosed Date [...] as of this encounter (statuses as of 06/17/2023) Resolved Problems Problem Noted Date Diagnosed Date [...] as of this encounter (statuses as of 06/17/2023) Immunizations Name Administration Dates Next Due COVID-19 mRNA, LNP-s, No Pre serve, 2-Dose Series ([employer]) 04/03/2021,09/14/2020,08/17/2020 Influenza, Whole Virus 05/03/2018,07/24/2006 Pneumococcal Conjugate [...] encounter Miscellaneous Notes * Telephone Encounter - Aniket Black LPN - 06/17/2023 1:35 PM EST Medication list updated. Lab ordered. ----- Message from Nick Flores PA-C sent at 06/16/2023 12:30 PM EST ----- Patient called personally. Laboratory results discussed. Patient notes recently feeling significantly dehydrated, with no where near the fluid he had in the past. Patient notes self reducing furosemide to 40 mg/day approximately 2 weeks ago. Recommendations/Plan: Decrease furosemide from 40 mg/day to 20 mg/day Hold lisinopril (currently taking 5 mg/day) to prevent recurrent hyperkalemia Check a follow-up basic metabolic panel when in for the resting echocardiogram on June 30, 2023. documented in this encounter Plan of Treatment Upcoming Encounters Date Type Department Care Team (Late st Contact Info) Description 06/23/2023 11:00 AM EST Office Visit Hepatology, [facility] 132 [facility] [place] [address] Rebekah Anguiano MD [address] [place] [address] 06/30/2023 1:00 PM EST Cardiac Studies Cardiac Studies, [facility] 132 [facility] [place] [address] 07/14/2023 10:00 AM EST Office Visit Sleep Disorders Ctr [facility] 132 [facility] [place] [phone] Sujey Vega DO 132 [facility] [place] [address] 07/30/2023 2:00 PM EST Office Visit Nephrology, [facility] 200 [facility] [place] [address] Regina Alonso MD 200 [facility] [place] [address] 11/03/2023 10:30 AM EDT Office Visit Cardiology, [facility] [address] [facility] [place] [address] Randi Mendoza PA-C 132 [facility] [place] [address] 11/05/2023 11:20 AM EDT Office Visit [facility] [address] [place] [address] Nick Edwards MD [address] [place], [place] [address] Scheduled Orders Name Type Priority Associated Diagnoses Orde r Schedule BASIC METABOLIC PANEL Lab Routine Acute diastolic heart failure (HCC) Encounter for monitoring diuretic therapy Expected: 06/30/2023 (Approximate), Expires: 06/17/2024 Health Maintenance Due Date Last Done Comments Depression Screening 03/29/2021 03/29/2020 COVID-19 Vaccine (2022- 4 season) 2023 05/21/2022, 04/03/2021, 09/14/2020, Additional history exists Zoster Vaccines Completed 08/25/2022, 05/07, 11/17/2012 Influenza Vaccine (FLU shot) Completed 05/2023, 04/10/2022, 04/15/2021, Additional history exists documented as of this encounter Medical Devices Implanted Type Area Crane Operator Device Identifier Shelf Expiration Date Model / Serial / Lot Valve Heart Trifec Aortic 23mm - [id number] Implanted:Qty : 1 on 05/16/2014 at OR [facility] [place] N/A: Aorta ST JUAN : CARDIOVASCULAR 07/25/2015 TF-23A / [id number] / Stent Synergy Xd Mr [id number] - [id number] Implanted:Qty : 1 on 04/21/2023 by Christopher Moreno MD at [facility]ARDIAC LABS [facility] [employer] [id number] 10/14/2023 [id number] / / [id number] documented as of this encounter Visit Diagnoses Diagnosis Encounter for monitoring diuretic therapy- Primary Encounter for therapeutic drug monitoring Acute diastolic heart failure (HCC) Acute diastolic heart failure documented in this encounter Advance Directives Latest [...] and were consensually agreed upon. Care Teams Director Of Residential Services Relationship Specialty Start Date End Date Nick Edwards MD [address] [place] [address] PCP - General 01/11/04 documented as of this encounter
--- OUTSIDE RECORDS SUMMARY | 2023-08-28 15:10 | External Medical Summary | Summary of Care ---
Author Name Unknown Organization [facility] Address [address] [place] [address] Phone [phone] Care Team Providers Care Exhaust And Muffler Fitter Name Role Phone Nick Edwards MD Primary Care Provider [phone] Reason for Referral * Precert (Within 10 days (routine)) - Pending Review Specialty Diagnoses / Procedures Referred By Contac t Referred To Contact Cardiac Studies Diagnoses S/P TAVR (transcatheter aortic valve replacement) Procedures ECHO, COMPLETE (2D), TRANS-THORACIC Jennifer Morse CRNP [address] [place] [address] Referral ID Status Reason Start Date Expiration Date Visits Requested Visits Authorized [id number] Pending Review Precert 06/06/2024 999 999 Reason for Visit * Reason Comments Follow Up Encounter Details Date Type Department Care Team (Late st Contact Info) Description 06/05/2023 2:00 PM EST Office Visit Cardiology, [facility] [address] [place] [address] Jennifer Morse CRNP [address] [place] [address] S/P TAVR (transcatheter aortic valve replacement)* Allergies Active Allergy Reactions Criticality Noted Date [...] Sign Reading Time Taken Comments Blood Pressure 122/64 06/05/2023 1:24 PM EST Pulse 62 06/05/2023 1:24 PM EST Temperature - - Respiratory Rate - - Oxygen Saturation 98% 06/05/2023 1:24 PM EST Inhaled Oxygen Concentration - - Weight 93 kg (205 lb) 06/05/2023 1:24 PM EST Height - - Body Mass Index 28.59 04/30/2023 10:28 AM EDT documented in this encounter Functional Status Functional [...] as of this encounter Progress Notes * Jennifer Morse CRNP - 06/05/2023 2:00 PM EST Valve Clinic Cardiology Outpatient Clinic Note 06/05/2023 Patient disposition: 1 month TAVR follow up. Primary Composite Worker Dr. Calero/Randi Mendoza PA-C Past medical history: Aortic valve disease status post aortic valve replacement for severe calcific aortic stenosis, May 2014, receiving a [address] [employer] Trifecta bioprosthesis. Severe aortic valve prosthesis stenosis, s/p TAVR (# 23 mm Ricci Minesh S3 Ultra valve ), Unsuccessful attempt at BASILICA, 04/21/2023 Nonobstructive CAD per cardiac catheterization, 03/13/2023 at [facility] Chronic diastolic CHF Permanent atrial fibrillation CHADSVASC 6 (age, DM, HTN, HF, CAD)-- - not on AC due to h/o bleeding ulcer Obstructive sleep apnea, on CPAP Hypertension. Hyperlipidemia. Type 2 DM CKD stage 3 Scr 1.8-2.0- follows with nephrology [place] cirrhosis Recurrent right pneumothorax, spontaneous HPI 82-year-old male presenting to the valve clinic today in close follow-up following TAVR. Patient has a known severe aortic stenosis of the bioprosthetic aortic valve and underwent TAVR on 04/21/[address] Moreno at [facility]. Unsuccessful attempt of BASILICA noted. "We implanted a 23 mm Ricci Minesh 3 ultra valve valve in valve fashion inside of the old surgical bioprosthesis. The left main coronary artery was protected using snorkel stent technique. Final angiogram demonstrated brisk coronary flow without any significant compromise. Final aortic valve gradient was measured to be 8 mmHg. We deemed this to be a technically excellent result" --Dr. Moreno. Hospital course copied below. HOSPITAL COURSE (focused): Patient was admitted for monitoring after TAVR procedure for severe aortic stenosis. The left main coronary artery was protected using snorkel stent technique. He tolerated the procedure well. Routine labs, imaging, and EKGs post-operative remained within acceptable limits. Patient is stable for dis charge home with close PCP follow-up. Operations & Procedures: INDICATION FOR PROCEDURE: Severe Symptomatic Aortic Stenosis PROCEDURES: Successful transfemoral implantation of a # 23 mm Ricci Minesh S3 Ultra valve Placement of temporary venous pacemaker Arterial access site closure with single Perclose Proglide devices Selective angiography of the right common iliac artery Unsuccessful attempt at BASILICA Today the patient presents feeling "great". Continues to note significant improvement in his functional capacity. No longer short of breath. No issues with lower extremity edema. Denies exertional chest pain. No palpitations, lightheadedness or dizziness. No orthopnea or PND. No fever, chills, cough, hematochezia, melena, or hemoptysis. EKG today showing AFIB, 61 beats per minute. He states he is compliant with all medications, and offers no side effects. Current Outpatient Medications Medication Sig Dispense Refill [...] CAPS Take 1 Capsule by mouth daily. OneTouch Ultra Blue In Vitro Strip (Glucose Blood) 2X'S A DAY DX E11.9 200 Strip 3 Amoxicillin 500 MG Oral Capsule (Amoxil) TAKE 4 CAPSULES BY MOUTH 1/2 HOUR BEFORE DENTAL APPOINTMENT 4 Capsule 2 Allopurinol 100 MG Oral Tablet (Zyloprim) TAKE ONE TABLET BY MOUTH DAILY OR DIRECTED 90 Tablet 1 Ferrous Sulfate 325 (65 Fe) MG Oral Tablet (Feosol) Take 1 Tablet by mouth in the morning. 90 Tablet 3 Carvedilol 3.125 MG Oral Tablet (Coreg) 1/2 tab twice daily 90 Tablet 1 TRUEplus Lancets 33G 2X'S A DAY DX E11.9 200 Each 3 Clopidogrel Bisulfate 75 MG Oral Tablet (pLAVix) Take 1 Tablet by mouth in the morning. 90 Tablet 3 CPAP by Device route every night at bedtime. Pantoprazole Sodium 40 MG Oral Tablet Delayed Release (Protonix) Take 1 Tablet by mouth in the morning and 1 Tablet in the evening. 180 Tablet 3 Furosemide 40 MG Oral Tablet (Lasix) TAKE 1.5 TABLET BY MOUTH EVERY DAY IN THE MORNING 90 Tablet 3 Lisinopril 10 MG Oral Tablet (Prinivil) Take 1 Tablet by mouth in the morning. 30 Tablet 5 Atorvastatin Calcium 40 MG Oral Tablet (Lipitor) Take 1 Tablet by mouth every evening. 90 Tablet 3 No current facility-administered medications for this visit. Past Medical History: Diagnosis Date Aortic valve stenosis Aortic valve stenosis 10/12/2012 Benign localized hyperplasia of prostate without urinary obstruction and other lower urinary tract symptoms (LUTS) Diverticulosis of colon 06/11 DM type 2, goal A1c below 7 Dyslipidemia, goal LDL below 160 Hypercholesterolemia Gouty arthropathy 04/22/2016 Hemorrhoids Hemorrhoids Hepatitis elevated AST, ALT 07/09, 12/09 HTN, goal below 140/90 Morbid obesity, BMI not known (HCC) Other ventral hernia without mention of obstruction or gangrene dm Sleep apnea Obstructive Steatohepatitis, non-alcoholic 03/13/2010 Past Surgical History: Procedure Laterality Date COLONOSCOPY 06/05/2007 Diverticulosis, repeat 10 yrs CORONARY ANGIOGRAPHY W/LEFT HEART CATH N/A 03/13/2023 CORONARY ANGIOGRAPHY W/LEFT HEART CATH performed by Christopher Moreno MD at [facility] EGD, FLEXIBLE, DIAGNOSTIC N/A 12/16/2022 [facility], EGD , non-bleeding gastric ulcer (Ld Class III) / biopsies shows mild to moderate inflammation / MISCELLANEOUS ORDER ([facility] ONLY) 09/04/2003 [place]/ bilateral quad rupture repair and repeat x 1 OTHER 05/06/2007 [place]/ laser vaporizationof prostate REPAIR INITIAL INCISIONAL OR VENTRAL HERNIA; REDUCIBLE Left REPLACE AORTIC VALVE, PERCUTANEOUS FEMORAL Bilateral 04/21/2023 REPLACE AORTIC VALVE, PERCUTANEOUS FEMORAL performed by Christopher Moreno MD at [facility] REPLACE AORTIC VALVE, PERCUTANEOUS FEMORAL N/A 04/21/2023 REPLACE AORTIC VALVE, PERCUTANEOUS FEMORAL performed by Jose Antonio Lewis MD at [facility] REPLACEMENT AORTIC VALVE, BYPASS WITH PROSTHETIC VALVE 05/16/2014 REPLACEMENT AORTIC VALVE performed by Jacob Crane MD at OR [facility] Social History Tobacco Use Smoking status: Never Smokeless tobacco: Never Vaping Use Vaping Use: Never used Substance Use Topics Alcohol use: Yes Comment: a few drinks/month Drug use: No Review of patient's allergies indicates: Allergen Reactions Jardiance [Empagliflozin] Diarrhea Felodipine plendil Review of Systems: See HPI for pertinent positives. All others negative, other than those noted in HPI. Physical Exam BP 122/64 | Pulse 62 | Wt 93 kg (205 lb) | SpO2 98% | BMI 28.59 kg/m | BSA 2.16 m General: No acute distress. A+Ox3. HEENT: Normocephalic. Atraumatic. Conjunctiva and sclera clear. NECK: No carotid bruits. No JVD. Carotid upstrokes are brisk. Heart: RRR. S1 and S2 noted. +faint systolic murmur. Lungs: Clear to auscultation. No wheezes, rhonchi, rales. Abdomen: Normal bowel sounds. Soft. Nontender. No masses or organomegaly. No abdominal bruits. Extremities: No edema. No clubbing or cyanosis. BL groin sites healed- mild brusing noted. Pulses: radial=2/4, posterior tibial=2/4, dorsalis pedis = 2/4. NEURO: No focal deficits. PSYCH: Normal. Lab data/imaging study review: TTE 04/22/2023- POD 1 TAVR The examination is adequate to evaluate the referral indication. The qualitative LV ejection fraction is 60-64% (normal). No LV segmental wall motion abnormalities. The patient is status post TAVR with Minesh type prosthetic valve. Aortic valve prosthesis stenosisis absent. Significant aortic valve prosthesis regurgitation is absent. The proximal ascending thoracic aorta is mildly enlarged. No pericardial effusion is noted. Cardiac cath at [facility]- pre TAVR 03/13/2023 Coronary disease - hemodynamically insignificant, Mild luminal irregularities, 5Fr right radial access s/p radial band, Vessel was very calcified and challenging to advance equipment Echo 02/25/2023 The examination is adequate to evaluate the referral indication. The left ventricular cavity size is normal. The LV wall thickness is mildly increased (concentric). The left ventricular wall motion is normal. The qualitative LV ejection fraction is 60-64% (normal). There is an aortic valve bioprosthetic present. Prosthetic valve leaflets are calcified with severe restriction in leaflet mobility. There is moderate to severe prosthetic stenosis Moderate intravalvular aortic regurgitation is present. There is moderate mitral annular calcification. Moderate mitral regurgitation is present. Moderate tricuspid regurgitation is present. Moderate pulmonary hypertension is present A small posterior loculated pericardial effusion is present. Comparison to prior study of June 10, 2022 aortic valve prosthesis visually appears significantly stenotic although peak aortic valve velocities have decreased Echo 06/2022 The examination is adequate to evaluate the referral indication. The LV wall thickness is moderately increased (concentric). The left ventricular wall motion is normal. The left atrium is severely enlarged (>48 ml/m^2,). There is an aortic valve bioprosthetic present. There is severe aortic valve prosthesis stenosis, Mild prosthetic aortic regurgitation is present. The images are insufficient to determine if this is perivalvular or intra valvular regurgitation. The peak velocity= 4 meters/second, mean gradient 39 millimeters Hg, calculated aortic valve orifice area= 0.9 centimeter squared. Mild mitral regurgitation is present. Compared to the report of the previous study dated 11/26/2021, there has been no significant interval change. Ao V2 max: 405.4 cm/sec Ao mean P.1 mmHg NOAH(I,D): 0.85 cm2 Echo 11/26/2021 The examination is adequate to evaluate the referral indication. Marked sinus bradycardia with rate of 45-49 bpm present during the echocardiogram. The LV wall thickness is moderately increased (concentric). The left ventricular wall motion is normal. The qualitative LV ejection fraction is 60-64% (normal). The left atrium is severely enlarged. There is an aortic valve bioprosthetic present. Mild intravalvular aortic regurgitation is present. There is severe aortic valve prosthesis stenosis. The peak velocity across the aortic valve prosthesis= 4.2 meters/second, mean gradient 40 mm Hg. The NOAH could not be calculated as the left ventricular outflow tract is not visualized sufficiently enough to allow measurement. There is severe mitral annular calcification. Mild mitral regurgitation is present. The aortic root was not visualized sufficiently enough to allow measurement. The proximal ascending aorta diameter is within normal limits. Compared to the previous study dated 05/02/2021, the aortic valve indices are relatively unchanged,the aortic valve area was calculated to be 0.7 centimeter squared at that time. Ao V2 max: 417.0 cm/sec Ao mean P.8 mmHg NOAH(I,D): 0.7cm2 Echo 05/02/2021 The examination is limited quality but adequate for evaluation of the referral indication. The LV wall thickness is mildly increased (concentric). The left ventricular wall motion is normal. The qualitative LV ejection fraction is 55-59% (normal). The left ventricular diastolic function is moderately abnormal (grade II). There is an aortic valve bioprosthetic present. There is severe calcification the prosthetic leaflets. Mild prosthetic aortic valve regurgitation is present. The images are insufficient to determine if this is intravalvular or periprosthetic regurgitation. There is severe aortic valve prosthesis stenosis. The peak continues wave Doppler velocity= 4 meters/second, mean gradient 37 millimeters Hg, calculated aortic valve area= 0.7 centimeters squared. The aortic root is mildly enlarged. Compared to the prior study performed 07/26/2020, the severity the prosthetic stenosis has progressed. Impression/Plan: 1. Stenosis of prosthetic aortic valve, subsequent encounter 2. History of transcatheter aortic valve replacement (TAVR) -Severe aortic valve prosthesis stenosis, s/p TAVR (# 23 mm Ricci Minesh S3 Ultra valve ), Unsuccessful attempt at BASILICA, 04/21/2023 -NYHA class 1 1. No routine dental work should be completed in the first 6 months after TAVR. However if an acuteissue arises, patient is to alert the valve team. Antibiotics are needed for all dental work: Amoxicillin 2g- Take 4 capsules 1 hour prior to any dental work 2. Slowly increase activity- patient declining cardiac rehab. 3. Continue DAPT with Aspirin 81 mg daily and Plavix 75 mg daily for a minimum of 1 year due to stent placed in the LM. After that time considerations for single therapy aspirin 81 mg daily to be considered. 4. Repeat echo scheduled for 06/30/2023 5. Repeat blood work pending -- follows with nephrology for renal disease 3. Nonobstructive atherosclerosis of coronary artery -Nonobstructive CAD per cardiac catheterization, 03/13/2023 at [facility] 4. Permanent atrial fibrillation -Permanent atrial fibrillation, ventricular rates well controlled. -CHADSVASC 6 (age, DM, HTN, HF, CAD)-- - not on AC due to h/o bleeding ulcer. 1. Recommend following up with valve clinic for possible WATCHMAN placement, patient would like to think about this and will let us know when we call him regarding his echocardiogram. 5. Hypertension goal below 140/90 Blood pressure is well controlled 1. Continue carvedilol and lisinopril-- continue to follow with Dr. Alonso regarding CKD. BMP pending 6. Hyperlipidemia, LDL goal below 70 1. Continue atorvastatin 40 mg daily The patient agrees to the above plan and will call with additional questions or concerns. ER with all emergencies advised. Follow-up: Return in about 1 year (around 06/05/2024). | Check-out note: Valve clinic referral for watchman. 1 year with Tiffanie at with echo prior (same day). Keep RR appt. I spent a total of 40 minutes on the date of service in preparation, delivery, and documentation ofthe care provided to Gregorio Davidson excluding any time spent in the performance of separately billed services. ANKUR Stone [facility], Department of Cardiology This chart was completed in part utilizing de[employer] Speech Voice Recognition Software. Grammatical errors, random word insertions, prounoun errors, and incomplete sentences are an occasional consequence of this system due to software limitations, ambient noise, and hardware issues. Any formal questions or concerns about the content, text, or information contained within the body of this dictation should be directly addressed to the provider for clarification. documented in this encounter Procedure Notes * Lio Richard DO - 06/05/2023 1:33 PM ESTAssociated Order(s): EKG REASON FOR STUDY: 1M S/P TAVR CONCLUSIONS: Atrial fibrillation Abnormal ECG When compared with ECG of 29-APR-2023 09:42, No significant change was found Ventricular Rate: 61 Atrial Rate: 70 QRS Duration: 88 QT/QTc: 448/450 ms P-R-T Bourbon: 0 : 49 : 30 degrees documented in this encounter Nursing Notes * Estefania Hawkins CMA - 06/05/2023 1:23 PM EST Examination Room: 7 Name: Gregorio Davidson Date of : (1940) Reason for Visit: 1m post TAVR Interim Hospitalization(s): none Problems/Concerns: denied Chest Pain/SOB: denied My [facility] is a way you can talk to your provider online through e-mail. Would you like to sign up? I can activate it for you? DECLINES Patient was instructed to not get up on the exam table until directed and assisted by their provider; patient is to remain seated in the chair/ wheelchair/ exam table for fall prevention and safety reasons. Patient is aware to have assistance to step down off exam table with personnel. Patient voiced full comprehension of instructions. documented in this encounter Plan of Treatment Upcoming Encounters Date Type Department Care Team (Late st Contact Info) Description 06/23/2023 11:00 AM EST Office Visit Hepatology, [facility] [address] [facility] [place] [address] Rebekah Anguiano MD [facility] [employer] [place] [address] 06/30/2023 1:00 PM EST Cardiac Studies Cardiac Studies, [facility] [address] [place] [address] 07/14/2023 10:00 AM EST Office Visit [facility] [address] [place], [place] [id number] Suejy Vega DO [address] [place], [place] [address] 11/03/2023 10:30 AM EDT Office Visit Cardiology, [facility] [address] [facility] [place] [address] Randi Mendoza, MICHELLE [address] [place] [address] 11/05/2023 11:20 AM EDT Office Visit [facility] [address] [place] [address] Nick Edwards MD [address] [place] [address] 03/14/2024 1:40 PM EDT Office Visit Nephrology, [facility] [address] [facility] [place] [address] Regina Alonso MD [address] [facility] [place] [address] Scheduled Orders Name Type Priority Associated Diagnoses Orde r Schedule ECHO, COMPLETE (2D), TRANS-THORACIC Echocardiology Routine S/P TAVR (transcatheter aortic valve replacement) Expected: 06/06/2024, Expires: 07/06/2025 Health Maintenance Due Date Last Done Comments Depression Screening 03/29/2021 03/29/2020 COVID-19 Vaccine (2022- 4 season) 2023 05/21/2022, 04/03/2021, 09/14/2020, Additional history exists Zoster Vaccines Completed 08/25/2022, 05/07, 11/17/2012 Influenza Vaccine (FLU shot) Completed 05/2023, 04/10/2022, 04/15/2021, Additional history exists documented as of this encounter Medical Devices Implanted Type Area Emr Analyst Device Identifier Shelf Expiration Date Model / Serial / Lot Valve Heart Trifec Aortic 23mm - [id number] Implanted:Qty : 1 on 05/16/2014 at OR [facility] N/A: Aorta [facility] JEWEL : CARDIOVASCULAR 07/25/2015 TF-23A / [id number] / Stent Synergy Xd Mr [id number] - [id number] Implanted:Qty : 1 on 04/21/2023 by Christopher Moreno MD at [facility] [employer] [id number] 10/14/2023 [id number] / / [id number] documented as of this encounter Procedures Procedure Name Priority Date/Time Associated Diagnosis Comments WA ECG ROUTINE ECG W/LEAST 12 LDS W/I&R Routine 06/05/2023 1:33 PM EST S/P TAVR (transcatheter aortic valve replacement) documented in this encounter Results * EKG (06/05/2023 1:33 PM EST) 06/05/2023 1:33 PM EST Narrative Procedure Note Lio Richard, - 06/05/2023 1:33 PM EST REASON FOR STUDY: 1M S/P TAVR CONCLUSIONS: Atrial fibrillation Abnormal ECG When compared with ECG of 29-APR-2023 09:42, No significant change was found Ventricular Rate: 61 Atrial Rate: 70 QRS Duration: 88 QT/QTc: 448/450 ms P-R-T [place]: 0 : 49 : 30 degrees Jennifer PASCUAL EKG [facility] documented in this encounter Visit Diagnoses Diagnosis S/P TAVR (transcatheter aortic valve replacement)- Primary Heart valve replaced by other means documented in this encounter Advance Directives Latest [...] and were consensually agreed upon. Care Teams Exhaust And Muffler Fitter Relationship Specialty Start Date End Date Nick Edwards MD [address] [place] [address] PCP - General 01/11/04 documented as of this encounter
--- OUTSIDE RECORDS SUMMARY | 2023-08-28 15:10 | External Medical Summary | Summary of Care ---
Author Name Unknown Organization [facility] Address [address] [facility] [place] [address] Phone [phone] Care Team Providers Care Naturopathic Oncology Provider Name Role Phone Raheem Edwards MD Primary Care Provider [phone] Reason for Visit * Reason Comments eRx-Medication Refill Encounter Details Date Type Department Care Team (Late st Contact Info) Description 06/05/2023 Refill [facility] [address] [place] [address] Raheem Edwards MD [address] [place] [address] Diastolic heart failure, unspecified HF chronicity (HCC) Allergies Active Allergy Reactions Criticality Noted Date Comments Felodipine 11/17/2000 plendil Empagliflozin Diarrhea High 06/03/2022 documented as of this encounter (statuses as of 06/08/2023) Medications Medication Sig Dispensed Refills Start Date [...] 11/19/2022 Active Allopurinol 100 MG Oral Tablet (Zyloprim)Indica tions:Gouty arthropathy TAKE ONE TABLET BY MOUTH DAILY OR DIRECTED 90 Tablet 1 12/18/2022 Active Ferrous Sulfate 325 (65 Fe) MG Oral Tablet (Feosol)Indicati ons:Gastrointest inal hemorrhage associated with gastric ulcer Take 1 Tablet by mouth in the morning. 90 Tablet 3 01/05/2023 Active Carvedilol 3.125 MG Oral Tablet (Coreg)Indicatio [...] the evening. 180 Tablet 3 05/06/2023 Active Furosemide 40 MG Oral Tablet (Lasix)Indicatio ns:Acute diastolic heart failure (HCC) TAKE 1.5 TABLET BY MOUTH EVERY DAY IN THE MORNING 90 Tablet 3 05/05/2023 Active hydrALAZINE HCl 10 MG Oral Tablet (Apresoline)Lauren cations:Diastoli c heart failure, unspecified HF chronicity (HCC) TAKE 1/2 TABLETS BY MOUTH IN THE MORNING AND 1/2 TABLETS BEFORE BEDTIME. 90 Tablet 3 06/08/2023 Active Lisinopril 10 MG Oral Tablet (Prinivil) Take 0.5 Tablets by mouth in the morning. 0 06/05/2023 Active hydrALAZINE HCl 10 MG Oral Tablet (Apresoline)Lauren cations:Diastoli c heart failure, unspecified HF chronicity (HCC) Take 0.5 Tablets by mouth in the morning and 0.5 Tablets before bedtime. 90 Tablet 0 02/24/2023 Discontinued documented as of this encounter (statuses as of 06/08/2023) Active Problems Problem Noted Date Diagnosed Date [...] as of this encounter (statuses as of 06/08/2023) Resolved Problems Problem Noted Date Diagnosed Date [...] as of this encounter (statuses as of 06/08/2023) Immunizations Name Administration Dates Next Due COVID-19 mRNA, LNP-s, No Pre serve, 2-Dose Series (authorGEN) 04/03/2021,09/14/2020,08/17/2020 Influenza, Whole Virus 05/03/2018,07/24/2006 Pneumococcal Conjugate [...] encounter Miscellaneous Notes * Telephone Encounter - Raheem Edwards MD - 06/08/2023 1:31 PM ESTSigned Prescriptions: Disp Refills hydrALAZINE HCl 10 MG Oral Tablet (Apresol*90 Tab*3 Sig: TAKE 1/2 TABLETS BY MOUTH IN THE MORNING AND 1/2 TABLETS BEFORE BEDTIME.Authorizing Provider: RAHEEM EDWARDS * Telephone Encounter - Raheem Edwards MD - 06/08/2023 1:31 PM ESTSigned Prescriptions: Disp Refills hydrALAZINE HCl 10 MG Oral Tablet (Apresol*90 Tab*3 Sig: TAKE 1/2 TABLETS BY MOUTH IN THE MORNING AND 1/2 TABLETS BEFORE BEDTIME.Authorizing Provider: RAHEEM EDWARDS * Telephone Encounter - Sadia Acosta CPhT - 06/08/2023 9:13 AM EST pt calling to check on status of hydralazine.pt is out of medication - pt is asking to be called when medication is sent in Thank you, Sadia Acosta CPhT II Hand Mixer [facility] Services ([facility]PS) (Formerly Telepharmacy) 06/08/2023, 9:13 AM * Telephone Encounter - Chey Saleh LPN - 06/08/2023 9:01 AM ESTPending Prescriptions: Disp Refills hydrALAZINE HCl 10 MG Oral Tablet [Pharmac*90 Tab*0 Sig: TAKE 1/2 TABLETS BY MOUTH IN THE MORNING AND 1/2 TABLETS BEFORE BEDTIME. * Telephone Encounter - Jonathon Marrufo - 06/05/2023 7:13 PM ESTPending Prescriptions: Disp Refills hydrALAZINE HCl 10 MG Oral Tablet [Pharmac*90 Tab*0 Sig: TAKE 1/2 TABLETS BY MOUTH IN THE MORNING AND 1/2 TABLETS BEFORE BEDTIME. documented in this encounter Plan of Treatment Upcoming Encounters Date Type Department Care Team (Late st Contact Info) Description 06/23/2023 11:00 AM EST Office Visit Hepatology, [facility] [address] [facility] [place] [address] Rebekah Anguiano MD [address] [place] [address] 06/30/2023 1:00 PM EST Cardiac Studies Cardiac Studies, [facility] 132 [facility] [place] [address] 07/14/2023 10:00 AM EST Office Visit [facility] [phone] Sujey Vega, 132 [facility] [place] [address] 11/03/2023 10:30 AM EDT Office Visit Cardiology, [facility] 132 [place] [address] Randi Mendoza, PA-C 132 [facility] [place] [address] 11/05/2023 11:20 AM EDT Office Visit [facility] [address] [place] [phone] Raheem Edwards MD [address] [place] [address] 03/14/2024 1:40 PM EDT Office Visit Nephrology, [facility]angel [address] [place], [place] [address] Regina Alonso MD [address] [place], [place] [address] Health Maintenance Due Date Last Done Comments Depression Screening 03/29/2021 03/29/2020 COVID-19 Vaccine (5 - 2022-2 4 season) 2023 05/21/2022, 04/03/2021, 09/14/2020, Additional history exists Zoster Vaccines Completed 08/25/2022, 05/07, 11/17/2012 Influenza Vaccine (FLU shot) Completed 05/2023, 04/10/2022, 04/15/2021, Additional history exists documented as of this encounter Medical Devices Implanted Type Area Bundle Shaker Device Identifier Shelf Expiration Date Model / Serial / Lot Valve Heart Trifec Aortic 23mm - [id number] Implanted:Qty : 1 on 05/16/2014 [place] [facility] [place] N/A: Aorta ST JUAN : CARDIOVASCULAR 07/25/2015 TF-23A / [id number] / Stent Synergy Xd Mr [id number] - [id number] Implanted:Qty : 1 on 04/21/2023 by Christopher Moreno MD [place] [facility] [facility] [place] [employer] [id number] 10/14/2023 [id number] / / [id number] documented as of this encounter Visit Diagnoses [...] and were consensually agreed upon. Care Teams Naturopathic Oncology Provider Relationship Specialty Start Date End Date Raheem Edwards MD [address], [place] [id number] PCP - General 01/11/04 documented as of this encounter
--- OUTSIDE RECORDS SUMMARY | 2023-08-28 15:10 | External Medical Summary | Summary of Care ---
Author Name Unknown Organization [facility] Address [address] [facility] [place] [address] Phone [phone] Care Team Providers Care [employer] Rep Name Role Phone Nick Edwards MD Primary Care Provider [phone] Reason for Visit * Reason Comments Outpatient Testing Encounter Details Date Type Department Care Team (Late st Contact Info) Description 06/05/2023 1:30 PM EST Laboratory Laboratory, [facility] [address] [facility] [place] [phone] [facility] [address] [facility] [place] [address] Stage 3b chronic kidney disease (HCC); Diastolic [...] 06/05/2023 2:00 PM EST Office Visit Cardiology, [facility] 132 [facility] [place] [address] Jennifer Morse CRNP [address] [place] [address] S/P TAVR (transcatheter aortic valve replacement)* 06/23/2023 11:00 AM EST Office Visit Hepatology, [facility] [address] [place] [address] Rebekah Anguiano MD [address] [place] [address] 06/30/2023 1:00 PM EST Cardiac Studies Cardiac Studies, [facility] 132 [facility] [place] [address] 07/14/2023 10:00 AM EST Office Visit Sleep Disorders [facility] [address] [facility] [place] [phone] Sujey Vega DO [address] [place] [address] 11/03/2023 10:30 AM EDT Office Visit Cardiology, [facility] [place] [address] Randi Mendoza PA-C [address] [place] [address] 11/05/2023 11:20 AM EDT Office Visit [address], [place] [address] Nick Edwards MD [address] [place] [address] 03/14/2024 1:40 PM EDT Office Visit Nephrology, [facility] 200 [facility] [place] [address] AlonsoRegina evans MD 200 [facility] [place] [address] Pending Results Name Type Priority Associated Diagnoses Date /Time BASIC METABOLIC PANEL Lab Routine Stage 3b chronic kidney disease (HCC) Diastolic heart failure, unspecified HF chronicity (HCC) Encounter for monitoring diuretic therapy 06/05/2023 1:16 PM EST CBC Lab Routine History of transcatheter aortic valve replacement (TAVR) 06/05/2023 1:16 PM EST Health Maintenance Due Date Last Done Comments Depression Screening 03/29/2021 03/29/2020 COVID-19 Vaccine (2022-2 4 season) 2023 05/21/2022, 04/03/2021, 09/14/2020, Additional history exists Zoster Vaccines Completed 08/25/2022, 05/07, 11/17/2012 Influenza Vaccine (FLU shot) Completed 05/2023, 04/10/2022, 04/15/2021, Additional history exists documented as of this encounter Medical Devices Implanted Type Area Azure Architect Device Identifier Shelf Expiration Date Model / Serial / Lot Valve Heart Trifec Aortic 23mm - [id number] Implanted:Qty : 1 on 05/16/2014 at [place] [facility] [place] N/A: Aorta ST JUAN : CARDIOVASCULAR 07/25/2015 TF-23A / [id number] / Stent Synergy Xd Mr [id number] - [id number] Implanted:Qty : 1 on 04/21/2023 by Christopher Moreno MD at [facility] [employer] [id number] 10/14/2023 [id number] / / [id number] documented as of this encounter Visit Diagnoses Diagnosis S/P TAVR (transcatheter aortic valve replacement)- Primary Heart valve replaced by other means Stage 3b chronic kidney disease (HCC) Diastolic [...] and were consensually agreed upon. Care Teams [employer] Rep Relationship Specialty Start Date End Date Nick Edwards MD [address] [place] [address] PCP - General 01/11/04 documented as of this encounter
--- OUTSIDE RECORDS SUMMARY | 2023-08-28 15:10 | External Medical Summary | Summary of Care ---
Author Name Unknown Organization [facility] Address [address] [facility] [place] [address] Phone [phone] Care Team Providers Care Tetryl Blender Operator Name Role Phone Nick Edwards MD Primary Care Provider [phone] Reason for Visit * Reason Onset Date Comments Test Results 06/05/2023 Encounter Details Date Type Department Care Team (Late st Contact Info) Description 06/05/2023 Telephone Cardiology, [facility] [address] [place] [address] Nick Flores, PA-C [address] [place] [address] Test Results Allergies Active Allergy Reactions Criticality [...] 11/19/2022 Active Allopurinol 100 MG Oral Tablet (Zyloprim)Indicat [...] evening. 180 Tablet 3 05/06/2023 4 Active Furosemide 40 MG Oral Tablet (Lasix)Indication s:Acute diastolic heart failure (HCC) TAKE 1.5 TABLET BY MOUTH EVERY DAY IN THE MORNING 90 Tablet 3 05/05/2023 Active Lisinopril 10 MG Oral Tablet (Prinivil) Take 0.5 Tablets by mouth in the morning. 0 06/05/2023 Active Lisinopril 10 MG Oral Tablet (Prinivil) Take 1 Tablet by mouth in the morning. 30 Tablet 5 05/05/2023 3 Discontinue d(Refill) documented as of this encounter [...] Telephone Encounter - Aniket Black LPN - 06/05/2023 4:06 PM EST Called patient and left Nick's message on an identified voicemail to make patient aware. BMP ordered. Medication list updated. ----- Message from Nick Flores PA-C sent at 06/05/2023 3:25 PM EST ----- Metabolic panel with high potassium (hyperkalemia at 5.3 mmol/L). Please make sure patient is not taking over the counter potassium, using salt substitutes, NSAID's,etc. Decrease lisinopril from 10 mg/day to 5 mg/day Recheck a basic metabolic panel in about 10 days documented in this encounter Plan of Treatment Upcoming Encounters Date Type Department Care Team (Late st Contact Info) Description 06/23/2023 11:00 AM EST Office Visit Hepatology, [facility] 132 [facility] [place] [address] Rebekah Anguiano MD [address] [place] [address] 06/30/2023 1:00 PM EST Cardiac Studies Cardiac Studies, [facility] 132 [facility] [place] [address] 07/14/2023 10:00 AM EST Office Visit Sleep Disorders Ctr [facility] 132 [facility] [place] [phone] Sujey Vega DO [address] [place] [address] 11/03/2023 10:30 AM EDT Office Visit Cardiology, [facility] [address] [place] [address] Randi Mendoza PA-C [address] [place] [address] 11/05/2023 11:20 AM EDT Office Visit [facility] [address] [place] [phone] Nick Edwards MD [address] [place] [address] 03/14/2024 1:40 PM EDT Office Visit Nephrology, [facility] [address] [place] [address] Regina Alonso MD [address] [place] [address] Scheduled Orders Name Type Priority Associated Diagnoses Orde r Schedule BASIC METABOLIC PANEL Lab Routine Hyperkalemia Expected: 06/15/2023 (Approximate), Expires: 06/05/2024 Health Maintenance Due Date Last Done Comments Depression Screening 03/29/2021 03/29/2020 COVID-19 Vaccine (2022-08 4 season) 2023 05/21/2022, 04/03/2021, 09/14/2020, Additional history exists Zoster Vaccines Completed 08/25/2022, 05/07, 11/17/2012 Influenza Vaccine (FLU shot) Completed 05/2023, 04/10/2022, 04/15/2021, Additional history exists documented as of this encounter Medical Devices Implanted Type Area Trail Maintenance Worker Device Identifier Shelf Expiration Date Model / Serial / Lot Valve Heart Trifec Aortic 23mm - [id number] Implanted:Qty : 1 on 05/16/2014 at [place] [facility] [place] N/A: Aorta ST JUAN : CARDIOVASCULAR 07/25/2015 TF-23A / [id number] / Stent Synergy Xd Mr [id number] - [id number] Implanted:Qty : 1 on 04/21/2023 by Christopher Moreno MD at [facility] [place] [employer] [id number] 10/14/2023 [id number] / / [id number] documented as of this encounter Visit Diagnoses Diagnosis Hyperkalemia- Primary Hyperpotassemia documented in this encounter Advance Directives Latest [...] and were consensually agreed upon. Care Teams Tetryl Blender Operator Relationship Specialty Start Date End Date Nick Edwards MD [address] [place] [address] PCP - General 01/11/04 documented as of this encounter
--- OUTSIDE RECORDS SUMMARY | 2023-08-28 15:10 | External Medical Summary | Summary of Care ---
Author Name Unknown Organization [facility] Address [address] [facility] [place] [address] Phone [phone] Care Team Providers Care Bridge Maintenance Worker Name Role Phone Nick Edwards MD Primary Care Provider [phone] Reason for Visit * Reason Onset Date Comments Test Results 06/05/2023 Encounter Details Date Type Department Care Team (Late st Contact Info) Description 06/05/2023 Telephone Cardiology, [facility] [address] [place] [address] Nick Flores, PA-C [address] [place] [address] Test Results Allergies Active Allergy Reactions Criticality [...] mRNA, LNP-s, No Pre serve, 2-Dose Series (FertilityAuthority) 04/03/2021,09/14/2020,08/17/2020 Influenza, Whole Virus 05/03/2018,07/24/2006,07/1998 Pneumococcal Conjugate Vacc, 13 Valent (Prevnar) 01/18/2015 Pneumococcal Polysaccharide PPV23 (Pneumovax) 06/25/2005,04/29/1999 SEASONAL INFLUENZA, PF, 6 M & Above, IM , (FLULAVAL or FLUZONE) 03/29/2020,05/06/2017 Seasonal Influenza, Quadriva lent Hd (Fluzone Hd) 03/16/2023,04/10/2022,04/15/2021 Seasonal Influenza, Quadriva lent, No Preserve, IM 04/22/2016,04/20/2015 04/22/2017 Seasonal Influenza, Split, I IV3, With Preserve, Inj 05/09/2014,06/07/2013,04/16/2012,04/05,04/29/2010,04/02/2009,05/29/20 08,05/07/2007 Seasonal Influenza, Trivalen t, Adjuvanted, 65+ yrs 05/18/2019 TDAP (age 10 and older)(Boostrix) 04/30/2023,09/2012 Varicella Zoster Vaccine (Adult) 11/17/2012 Zoster Vaccine Recombinant (Shingrix) 08/25/2022 ,06/02/2022 documented as of this encounter Social History [...] encounter Miscellaneous Notes * Telephone Encounter - Rustam Garay [facility] - 06/05/2023 5:06 PM EST Advised patient to complete blood work in 10 days, and to decrease the dose of lisinopril by takingone-half of a 10mg tablet. Thank you, Rustam Garay, PharmD Clinical Pharmacist [facility] Pharmacy Services (CCPS) (Formerly Telepharmacy) [phone] 06/05/2023, 5:07 PM * Telephone Encounter - Kathya Leyva CPhT - 06/05/2023 5:01 PM EST Patient retuning call, warm transferred to [facility] for further assistance. Thank you, Kathya Leyva, Magnetic Prospecting Operator I [facility] Pharm[facility] Services (Formerly Telepharmacy) 06/05/2023, 5:02 PM * Telephone Encounter - Aniket Black LPN [...] 06/23/2023 11:00 AM EST Office Visit Hepatology, [facility] 132 [facility] [place] [address] Rebekah Anguiano MD [address] [place] [address] 06/30/2023 1:00 PM EST Cardiac Studies Cardiac Studies, [facility] 132 [facility] [place] [address] 07/14/2023 10:00 AM EST Office Visit Sleep Disorders Ctr [facility] 132 [facility] [place] [phone] Sujey Vega, [facility] [address] 11/03/2023 10:30 AM EDT Office Visit Cardiology, [facility] 132 [facility] [place] [address] Randi Mendoza, PA-Cecily 132 [place] [address] 11/05/2023 11:20 AM EDT Office Visit [facility] [address] [place] [phone] Nick Edwards MD [address] [place] [address] 03/14/2024 1:40 PM EDT Office Visit Nephrology, [facility] [address] [place] [address] Regina Alonso MD [address] [place] [address] Scheduled Orders Name Type Priority Associated [...] this encounter Medical Devices Implanted Type Area Client Relationship Executive Device Identifier Shelf Expiration Date Model / Serial / Lot Valve Heart Trifec Aortic 23mm - [id number] [place]planted:Q[place] : 1 [place]16/2014 [place] [facility] [place] N/A: Aorta ST JUAN : CARDIOVASCULAR 07/25/2015 TF-23A / [id number] / Stent Synergy Xd Mr [id number] - [id number] Implanted:Qty : 1 on 04/21/2023 by Christopher Moreno MD [place] [facility] [place] [facility] [place] [employer] [id number] 10/14/2023 [id number] / / [id number] documented as of this encounter Visit Diagnoses [...] and were consensually agreed upon. Care Teams Bridge Maintenance Worker Relationship Specialty Start Date End Date Nick Edwards MD [address] [facility] [phone] PCP - General 01/11/04 documented as of this encounter
--- OUTSIDE RECORDS SUMMARY | 2023-08-28 15:10 | External Medical Summary | Summary of Care ---
Author Name Unknown Organization [facility] Address [address] [facility] [place] [address] Phone [phone] Care Team Providers Care Flight Data Technician Name Role Phone Nick Edwards MD Primary Care Provider [phone] Reason for Referral * Precert (Within 10 days (routine)) - Pending Review Specialty Diagnoses / Procedures Referred By Contac t Referred To Contact Cardiac Studies Diagnoses S/P TAVR (transcatheter aortic valve replacement) Procedures ECHO, COMPLETE (2D), TRANS-THORACIC Jennifer Morse CRNP [address] [place] [address] Referral ID Status Reason Start Date Expiration Date Visits Requested Visits Authorized [id number] Pending Review Precert 06/06/2024 999 999 Reason for Visit * Reason Comments Follow Up Encounter Details Date Type Department Care Team (Late st Contact Info) Description 06/05/2023 2:00 PM EST Office Visit Cardiology, [facility] [address] [place] [address] Jennifer Morse CRNP [address] [place] [address] S/P TAVR (transcatheter aortic valve replacement)* Allergies [...] disposition: 1 month TAVR follow up. Primary Belt Weaver Dr. Calero/Randi Mendoza PA-C Past medical history: Aortic valve disease status post aortic valve replacement for severe calcific aortic stenosis, May 2014, receiving a [address] Jewel Trifecta bioprosthesis. Severe aortic valve prosthesis stenosis, s/p TAVR (# 23 mm Ricci Minesh S3 Ultra valve ), Unsuccessful attempt at BASILICA, 04/21/2023 Nonobstructive CAD per cardiac catheterization, 03/13/2023 at [facility] Chronic diastolic CHF Permanent atrial fibrillation CHADSVASC [...] TAVR on 04/21/[address] Moreno at [facility]. Unsuccessful attempt of BASILICA noted. "We implanted [...] implantation of a # 23 mm Ricci Mniesh S3 Ultra valve Placement of temporary venous [...] by Christopher Moreno MD at [facility] EGD, FLEXIBLE, DIAGNOSTIC N/A 12/16/2022 [facility], EGD , non-bleeding gastric ulcer (Ld Class [...] by Christopher Moreno MD at [facility] REPLACE AORTIC VALVE, PERCUTANEOUS FEMORAL N/A 04/21/2023 REPLACE AORTIC VALVE, PERCUTANEOUS FEMORAL performed by Jose Antonio Lewis MD at [facility] REPLACEMENT AORTIC VALVE, BYPASS WITH PROSTHETIC VALVE 05/16/2014 REPLACEMENT AORTIC VALVE performed by Jacob Crane MD at [place] [facility] Social History Tobacco Use Smoking status: Never [...] pericardial effusion is noted. Cardiac cath at [facility]- pre TAVR 03/13/2023 Coronary disease - hemodynamically [...] -Nonobstructive CAD per cardiac catheterization, 03/13/2023 at [facility] 4. Permanent atrial fibrillation -Permanent atrial fibrillation, [...] performance of separately billed services. ANKUR [facility], Department of Cardiology This chart was completed in part utilizing [employer] Speech Voice Recognition Software. Grammatical errors, random [...] 06/23/2023 11:00 AM EST Office Visit Hepatology, [facility] [address] [place] [address] Rebekah Anguiano MD [address] [place] [address] 06/30/2023 1:00 PM EST Cardiac Studies Cardiac Studies, [facility] [address] [place] [address] 07/14/2023 10:00 AM EST Office Visit Sleep Disorders Ctr [facility] [address] [place] [phone] Sujey Vega DO [address] [place] [address] 11/03/2023 10:30 AM EDT Office Visit Cardiology, [facility] [address] [place] [address] Randi Mendoza PA-C [address] [place] [address] 11/05/2023 11:20 AM EDT Office Visit [facility] [address] [facility], [place] [phone] Nick Edwards MD [address] [place] [address] 03/14/2024 1:40 PM EDT Office Visit Nephrology, [facility] 200 [facility] [place] [address] Regina Alonso MD [address] [facility] [address] Scheduled Orders Name Type Priority Associated Diagnoses Orde r Schedule EKG EKG Routine S/P TAVR (transcatheter aortic valve replacement) Ordered: 06/05/2023 ECHO, COMPLETE (2D), TRANS-THORACIC Echocardiology Routine S/P [...] this encounter Medical Devices Implanted Type Area Machine Maintenance Mechanic Device Identifier Shelf Expiration Date Model / Serial / Lot Valve Heart Trifec Aortic 23mm - [id number] Implanted:Qty : 1 on 05/16/2014 at [place] [facility] [place] N/A: Aorta ST JEWEL : CARDIOVASCULAR 07/25/2015 TF-23A / [id number] / Stent Synergy Xd Mr [id number] - [id number] Implanted:Qty : 1 on 04/21/2023 by Christopher Moreno MD at [facility] [employer] [id number] 10/14/2023 [id number] / / [id number] documented as of this encounter Visit Diagnoses [...] and were consensually agreed upon. Care Teams Flight Data Technician Relationship Specialty Start Date End Date Nick Edwards MD [address] [place] [address] PCP - General 01/11/04 documented as of this encounter
--- OUTSIDE RECORDS SUMMARY | 2023-08-28 15:10 | External Medical Summary | Summary of Care ---
Author Name Unknown Organization [facility] Address [address] [facility] [place] [address] Phone [phone] Care Team Providers Care Pediatric Dermatologist Name Role Phone Nick Edwards MD Primary Care Provider [phone] Reason for Visit * Reason Onset Date Comments Test Results 06/05/2023 Encounter Details Date Type Department Care Team (Late st Contact Info) Description 06/05/2023 Telephone Cardiology, [facility] [address] [place] [address] Nick Flores, PA-C [address] [place] [address] Test Results Allergies Active Allergy Reactions Criticality [...] mRNA, LNP-s, No Pre serve, 2-Dose Series (MySupportAssistant) 04/03/2021,09/14/2020,08/17/2020 Influenza, Whole Virus 05/03/2018,07/24/2006,07/1998 Pneumococcal Conjugate [...] encounter Miscellaneous Notes * Telephone Encounter - Kathya Leyva CPhT - 06/05/2023 5:01 PM EST Patient retuning call, warm transferred to [facility] for further assistance. Thank you, Kathya Leyva, Ux Researcher I Centralized Clinical Pharmacy Services (Formerly Telepharmacy) [...] 06/23/2023 11:00 AM EST Office Visit Hepatology, [facility] 132 [facility] [place] [address] Rebekah Anguiano MD [address] [place] [phone] 06/30/2023 1:00 PM EST Cardiac Studies Cardiac Studies, [facility] 132 [facility] [place] [address] 07/14/2023 10:00 AM EST Office Visit Sleep Disorders Ctr [facility] 132 [facility] [place] [phone] Sujey Vega, [address] [place] [address] 11/03/2023 10:30 AM EDT Office Visit Cardiology, [facility] 132 [facility] [place] [address] Randi Mendoza PA-C 132 [facility] [place] [address] 11/05/2023 11:20 AM EDT Office Visit [facility] [address] [place] [phone] Nick Edwards MD [address] [place] [address] 03/14/2024 1:40 PM EDT Office Visit Nephrology, [facility] 200 [facility], [place] [address] Regina Alonso MD 200 [place] [address] Scheduled Orders Name Type Priority Associated Diagnoses [...] this encounter Medical Devices Implanted Type Area Regulator Inspector Device Identifier Shelf Expiration Date Model / Serial / Lot Valve Heart Trifec Aortic 23mm - [id number] Implanted:Qty : 1 on 05/16/2014 at OR [facility] [place] N/A: Aorta [facility] JU[facility] : CARDIOVASCULAR 07/25/2015 TF-23A / [id number] / Stent Synergy Xd Mr [id number] - [id number] Implanted:Qty : 1 on 04/21/2023 by Christopher Moreno MD at [facility]AC LABS [facility] [place] Tellyo [id number] 10/14/2023 [id number] / / [id number] documented as of this encounter Visit Diagnoses [...] and were consensually agreed upon. Care Teams Pediatric Dermatologist Relationship Specialty Start Date End Date Nick Edwards MD [address] [place] [address] PCP - General 01/11/04 documented as of this encounter
--- OUTSIDE RECORDS SUMMARY | 2023-08-28 15:10 | External Medical Summary | Summary of Care ---
Author Name Unknown Organization [facility] Address [address] [facility] [place] [address] Phone [phone] Care Team Providers Care Business Development Officer Name Role Phone Nick Edwards MD Primary Care Provider [phone] Reason for Visit * Reason Comments Outpatient Testing Encounter Details Date Type Department Care Team (Late st Contact Info) Description 06/15/2023 3:40 PM EST Laboratory Laboratory, [facility] [address] [place] [address] [facility] Laboratory [address] [place] [address] Hyperkalemia Allergies Active Allergy Reactions Criticality Noted Date Comments Felodipine 11/17/2000 plendil Empagliflozin Diarrhea High 06/03/2022 documented as of this encounter (statuses as of 06/15/2023) Medications Medication Sig Dispensed Refills Start Date [...] OR DIRECTED 90 Tablet 1 06/09/2023 Active documented as of this encounter (statuses as of 06/15/2023) Active Problems Problem Noted Date Diagnosed Date [...] as of this encounter (statuses as of 06/15/2023) Resolved Problems Problem Noted Date Diagnosed Date [...] as of this encounter (statuses as of 06/15/2023) Immunizations Name Administration Dates Next Due COVID-19 mRNA, LNP-s, No Pre serve, 2-Dose Series (Kizoom) 04/03/2021,09/14/2020,08/17/2020 Influenza, Whole Virus 05/03/2018,07/24/2006 Pneumococcal Conjugate [...] 06/23/2023 11:00 AM EST Office Visit Hepatology, [facility] [address] [place] [address] Rebekah Anguiano MD [address] [place] [phone] 06/30/2023 1:00 PM EST Cardiac Studies Cardiac Studies, [facility] [address] [place] [address] 07/14/2023 10:00 AM EST Office Visit Sleep Disorders [facility] 132 [facility] [place] [phone] Sujey Vega DO [address] [place] [address] 07/30/2023 2:00 PM EST Office Visit Nephrology, [facility] [address] Regina Alonso MD [address] [facility] [address] 11/03/2023 10:30 AM EDT Office Visit Cardiology, [facility] [address] [place] [address] Randi Mendoza PA-C [address] [place] [address] 11/05/2023 11:20 AM EDT Office Visit [address] [address] Nick [facility] [address] [facility] [address] Pending Results Name Type Priority Associated Diagnoses Date /Time BASIC METABOLIC PANEL Lab Routine Hyperkalemia 06/15/2023 3:18 PM EST Health Maintenance Due Date Last Done Comments Depression Screening 03/29/2021 03/29/2020 COVID-19 Vaccine (2022-08 4 season) 2023 05/21/2022, 04/03/2021, 09/14/2020, Additional history exists Zoster Vaccines Completed 08/25/2022, 05/07, 11/17/2012 Influenza Vaccine (FLU shot) Completed 05/2023, 04/10/2022, 04/15/2021, Additional history exists documented as of this encounter Medical Devices Implanted Type Area Operations Clerk Device Identifier Shelf Expiration Date Model / Serial / Lot Valve Heart Trifec Aortic 23mm - [id number] Implanted:Qty : 1 on 05/16/2014 at [place] [facility] N/A: Aorta [facility] JUAN : CARDIOVASCULAR 07/25/2015 TF-23A / [id number] / Stent Synergy Xd Mr [id number] - [id number] Implanted:Qty : 1 on 04/21/2023 by Christopher Moreno MD at [facility] [place] Travel Notes [id number] 10/14/2023 [id number] / / [id number] documented as of this encounter Visit Diagnoses Diagnosis Hyperkalemia Hyperpotassemia documented in this encounter Advance Directives [...] and were consensually agreed upon. Care Teams Business Development Officer Relationship Specialty Start Date End Date Nick Edwards MD [address] [place] [address] PCP - General 01/11/04 documented as of this encounter
--- OUTSIDE RECORDS SUMMARY | 2023-08-28 15:10 | External Medical Summary | Summary of Care ---
Author Name Unknown Organization [facility] Address [address] [facility] [place] [address] Phone [phone] Care Team Providers Care Bit And Shank Department Supervisor Name Role Phone Raheem Edwards MD Primary Care Provider Reason for Visit * Reason Comments eRx-Medication Refill Encounter Details Date Type Department Care Team (Late st Contact Info) Description 06/09/2023 Refill [facility] [address] [place] [address] Raheem Edwards MD [address] [place] [address] Gouty arthropathy Allergies Active Allergy Reactions Criticality Noted Date Comments Felodipine 11/17/2000 plendil Empagliflozin Diarrhea High 06/03/2022 documented as of this encounter (statuses as of 06/09/2023) Medications Medication Sig Dispensed Refills Start Date [...] 4 Active Furosemide 40 MG Oral Tablet (Lasix)Indicatio [...] 06/05/2023 Active Allopurinol 100 MG Oral Tablet (Zyloprim)Indica tions:Gouty arthropathy TAKE ONE TABLET BY MOUTH DAILY OR DIRECTED 90 Tablet 1 06/09/2023 Active Allopurinol 100 MG Oral Tablet (Zyloprim)Indica tions:Gouty arthropathy TAKE ONE TABLET BY MOUTH DAILY OR DIRECTED 90 Tablet 1 12/18/2022 Discontinued documented as of this encounter (statuses as of 06/09/2023) Active Problems Problem Noted Date Diagnosed Date [...] as of this encounter (statuses as of 06/09/2023) Resolved Problems Problem Noted Date Diagnosed Date [...] as of this encounter (statuses as of 06/09/2023) Immunizations Name Administration Dates Next Due COVID-19 mRNA, LNP-s, No Pre serve, 2-Dose Series (CoolClouds) 04/03/2021,09/14/2020,08/17/2020 Influenza, Whole Virus 05/03/2018,07/24/2006 Pneumococcal Conjugate [...] encounter Miscellaneous Notes * Telephone Encounter - Norman Zhao [facility] - 06/09/2023 2:47 PM ESTSigned Prescriptions: Disp Refills Allopurinol 100 MG Oral Tablet (Zyloprim) 90 Tab*1 Sig: TAKE ONE TABLET BY MOUTH DAILY OR DIRECTEDAuthorizing Provider: RAHEEM EDWARDS User: NORMAN ZHAO documented in this encounter Plan of Treatment Upcoming Encounters Date Type Department Care Team (Late st Contact Info) Description 06/23/2023 11:00 AM EST Office Visit Hepatology, [address] [place] [address] Rebekah Anguiano MD [address] [place] [address] 06/30/2023 1:00 PM EST Cardiac Studies Cardiac Studies, [address] [place] [address] 07/14/2023 10:00 AM EST Office Visit [facility] Disorders Ctr [address] [place] [phone] Sujey Vega, [address] [place] [address] 11/03/2023 10:30 AM EDT Office Visit Cardiology, [facility] [address] [facility] [place] [address] Randi Mendoza PA-C [address] [place] [address] 11/05/2023 11:20 AM EDT Office Visit Family [facility] [address] [place] [address] Raheem Edwards MD [address] [place] [address] 03/14/2024 1:40 PM EDT Office Visit Nephrology, [facility] 200 [place] [address] Regina Alonso MD 200 [place] [address] Health Maintenance Due Date Last Done Comments Depression Screening 03/29/2021 03/29/2020 COVID-19 Vaccine ( - 2022-2 4 season) 2023 05/21/2022, 04/03/2021, 09/14/2020, Additional history exists Zoster Vaccines Completed 08/25/2022, 05/07, 11/17/2012 Influenza Vaccine (FLU shot) Completed 05/2023, 04/10/2022, 04/15/2021, Additional history exists documented as of this encounter Medical Devices Implanted Type Area Personal Secretary Device Identifier Shelf Expiration Date Model / Serial / Lot Valve Heart Trifec Aortic 23mm - [id number] Implanted:Qty : 1 on 05/16/2014 at OR [facility] N/A: Aorta [facility] JUAN : CARDIOVASCULAR 07/25/2015 TF-23A / [id number] / Stent Synergy Xd Mr [id number] - [id number] Implanted:Qty : 1 on 04/21/2023 by Christopher Moreno MD at [facility] LABS [facility] Weekdone [id number] 10/14/2023 [id number] / / [id number] documented as of this encounter Visit Diagnoses Diagnosis Gouty arthropathy Gouty arthropathy, unspecified documented in this encounter Advance Directives Latest [...] and were consensually agreed upon. Care Teams Bit And Shank Department Supervisor Relationship Specialty Start Date End Date Raheem Edwards MD [address] [place] [address] PCP - General 01/11/04 documented as of this encounter
--- OUTSIDE RECORDS SUMMARY | 2023-08-28 15:11 | External Medical Summary | Summary of Care ---
Author Name Unknown Organization [facility] Address [address] [facility] [place] [address] Phone [phone] Care Team Providers Care Carpenter Mate Name Role Phone Nick Edwards MD Primary Care Provider [phone] Reason for Visit * Reason Onset Date Comments Referral 06/05/2023 MTD DIscharge ( HTN ) Encounter Details Date Type Department Care Team (Late st Contact Info) Description 06/05/2023 Telephone Pharmacy, [place] [address] [place] [address] [facility] [address] [place] [address] Referral (MTD DIscharge ( HTN ) ) Allergies Active Allergy Reactions Criticality Noted Date [...] encounter Miscellaneous Notes * Telephone Encounter - Carol Pham PHARM Tech - 06/05/2023 11:28 AM EST Patient Phone Numbers Pt declined to schedule. Discharging from [facility] services at this time. Thank you, Carol Pham Automotive Brake Technician Centralized Clinical Pharmacy Services (CCPS) (formerly Telepharmacy) [phone] 06/05/2023,11:29 AM documented in this encounter Plan of Treatment Upcoming Encounters Date Type Department Care Team (Late st Contact Info) Description 06/05/2023 1:30 PM EST Laboratory Laboratory, [address] [phone] [place] [address] [address] 06/05/2023 2:00 PM EST Office Visit Cardiology, [address] [place] [address] Jennifer Morse CRNP 132 [facility] [address] 06/23/2023 11:00 AM EST Office Visit Hepatology, [facility] 132 [facility] [place] [address] Rebekah Anguiano MD [address] [place] [address] [place] [address] 06/30/2023 1:00 PM EST Cardiac Studies Cardiac Studies, [address] [place] [address] 07/14/2023 10:00 AM EST Office Visit Sleep Disorders Ctr [facility] [address] [facility] [place] [address] Sujey Vega, [address] [place] [address] 11/03/2023 10:30 AM EDT Office Visit Cardiology, [facility] [address] [facility] [place] [address] Randi Mendoza, MICHELLE [address] [place] [address] 11/05/2023 11:20 AM EDT Office Visit [facility] [address] [place] [address] Nick Edwards MD [address] [place] [address] 03/14/2024 1:40 PM EDT Office Visit Nephrology, [facility] 200 [facility] [place] [address] AlonsoRegina evans MD 200 [facility] [place] [address] Health Maintenance Due Date Last Done Comments Depression Screening 03/29/2021 03/29/2020 COVID-19 Vaccine (2022-2 4 season) 2023 05/21/2022, 04/03/2021, 09/14/2020, Additional history exists Zoster Vaccines Completed 08/25/2022, 05/07, 11/17/2012 Influenza Vaccine (FLU shot) Completed 05/2023, 04/10/2022, 04/15/2021, Additional history exists documented as of this encounter Medical Devices Implanted Type Area Plumber Pipe Fitting Device Identifier Shelf Expiration Date Model / Serial / Lot Valve Heart Trifec Aortic 23mm - [id number] Implanted:Qty : 1 on 05/16/2014 at OR [facility] N/A: Aorta [facility] JUAN : CARDIOVASCULAR 07/25/2015 TF-23A / [id number] / Stent Synergy Xd Mr [id number] - [id number] Implanted:Qty : 1 on 04/21/2023 by Christopher Moreno MD at [facility] Wantr [id number] 10/14/2023 [id number] / / [id number] documented as of this encounter Advance Directives [...] and were consensually agreed upon. Care Teams Carpenter Mate Relationship Specialty Start Date End Date Nick Edwards MD [address] [place] [facility] [address] PCP - General 01/11/04 documented as of this encounter
--- OUTSIDE RECORDS SUMMARY | 2023-08-28 15:11 | External Medical Summary ---
Author Name Unknown Address Unknown Organization K0G:[facility] [place] [address] [place] [address] Laboratory Report Ordering Provider Test Date Status MARIANNE ARMENTA 06/05/2023 13:16:48 Final Observation Date Value Abnormality Reference (Units ) Status WBC, Total 06/05/2023 13:16:48 5.56 4.00-10.8 0 (K/uL) Final RBC 06/05/2023 13:16:48 3.25 4.50-5.25 (M/uL) Final Hemoglobin 06/05/2023 13:16:48 10.1 Below low normal 14 .0-16.8 (g/dL) Final HCT 06/05/2023 13:16:48 32.0 Below low normal 40. 0-48.4 (%) Final MCV 06/05/2023 13:16:48 98.5 82.0-99.5 (fL) Final MCH 06/05/2023 13:16:48 31.1 27.0-34.0 (pg) Final MCHC 06/05/2023 13:16:48 31.6 32.0-36.0 (g/dL) Final RDW 06/05/2023 13:16:48 14.3 11.5-15.5 (%) Final Platelets 06/05/2023 13:16:48 93 Below low normal 140 -400 (K/uL) Final MPV 06/05/2023 13:16:48 9.9 6.6-11.1 ( fL) Final Performing Location [facility] [address] [place] [address]
--- OUTSIDE RECORDS SUMMARY | 2023-08-28 15:11 | External Medical Summary | Summary of Care ---
Author Name Unknown Organization [facility] Address [address] [facility] [place] [address] Phone [phone] Care Team Providers Care Pill Maker Name Role Phone Nick Edwards MD Primary Care Provider [phone] Reason for Visit * Reason Onset Date Comments Blood Pressure Readings 05/08/2023 Encounter Details Date Type Department Care Team (Late st Contact Info) Description 05/08/2023 Telephone Nephrology, [facility] 200 [facility] [address] Regina Alonso MD 200 [place] [address] Blood Pressure Readings Allergies Active Allergy Reactions Criticality Noted Date Comments Felodipine 11/17/2000 plendil Empagliflozin Diarrhea High 06/03/2022 documented as of this encounter (statuses as of 05/08/2023) Medications Medication Sig Dispensed Refills Start Date [...] twice daily 90 Tablet 1 02/24/2023 Active hydrALAZINE HCl 10 MG Oral Tablet (Apresoline)Indica tions:Diastolic heart failure, unspecified HF chronicity (HCC) Take 0.5 Tablets by mouth in the morning and 0.5 Tablets before bedtime. 90 Tablet 0 02/24/2023 05/25/2023 Active TRUEplus Lancets 33G 2X'S A DAY [...] as of this encounter (statuses as of 05/08/2023) Active Problems Problem Noted Date Diagnosed Date [...] as of this encounter (statuses as of 05/08/2023) Resolved Problems Problem Noted Date Diagnosed Date [...] as of this encounter (statuses as of 05/08/2023) Immunizations Name Administration Dates Next Due COVID-19 mRNA, LNP-s, No Pre serve, 2-Dose Series (myWebRoom) 04/03/2021,09/14/2020,08/17/2020 Influenza, Whole Virus 05/03/2018,07/24/2006,07/1998 Pneumococcal Conjugate [...] or making decisions? (5 years old or older No 04/21/2023 documented as of this encounter Miscellaneous Notes * Telephone Encounter - Regina Alonso MD - 05/08/2023 4:43 PM EDT Blood pressure control improved with addition of medications at recent office visit. Do recommend he keep cardiology follow-up close in for re-evaluation and follow other instructions from recent office visit * Telephone Encounter - Kelly Encinas LPN - 05/08/2023 10:28 AM EDT Blood pressure readings Pt called with blood pressure readings 05/05 PM: 138/66 52 144/62 73 05/06 AM: 118/65 107 123/65 89 PM: 105/46 70 99/46 85 05/07 AM: 159/68 78 128/59 67 PM: 114/57 81 110/52 73 05/08 AM: 127/62 73 129/63 78 Home cuff validated Average out of 12 readings: 125/60 documented in this encounter Plan of Treatment Upcoming Encounters Date Type Department Care Team (Late st Contact Info) Description 05/20/2023 2:30 PM EST Office Visit Cardiology, [facility] 132 [facility] [place] [address] Oly Brandt PA-C [address] [place] [address] [place] [phone] 05/21/2023 11:20 AM EST Office Visit [address] [place] [address] Nick Edwards MD [address] [place] [address] 06/05/2023 1:30 PM EST Laboratory Laboratory, [facility] 132 [place] [address] [facility] 132 [facility] [place] [address] 06/05/2023 2:00 PM EST Office Visit Cardiology, [facility] 132 [facility] [place] [address] Jennifer Morse CRNP 132 [place] [address] 06/23/2023 11:00 AM EST Office Visit Hepatology, [facility] 132 [facility] [place] [address] Rebekah Anguiano MD [address] [place] [address] 06/30/2023 1:00 PM EST Cardiac Studies Cardiac Studies, [facility] 132 [place] [address] 07/14/2023 10:00 AM EST Office Visit Sleep Disorders [facility] 132 [place] [address] Sujey Vega DO [address] [place] [address] 11/03/2023 10:30 AM EDT Office Visit Cardiology, [facility] 132 [place] [address] Randi Mendoza PA-C [address] [place] [address] 11/05/2023 11:20 AM EDT Office Visit [facility] [address] [facility], [place] [phone] Nick Edwards MD [address] [place] [address] 03/14/2024 1:40 PM EDT Office Visit Nephrology, [facility] 200 [facility] [place] [address] Regina Alonso MD 200 [facility] [place] [address] Health Maintenance Due Date Last Done Comments Depression Screening 03/29/2021 03/29/2020 COVID-19 Vaccine (2022-08 4 season) 2023 05/21/2022, 04/03/2021, 09/14/2020, Additional history exists Zoster Vaccines Completed 08/25/2022, 05/07, 11/17/2012 Influenza Vaccine (FLU shot) Completed 05/2023, 04/10/2022, 04/15/2021, Additional history exists documented as of this encounter Medical Devices Implanted Type Area Studio Operations Engineer In Charge Device Identifier Shelf Expiration Date Model / Serial / Lot Valve Heart Trifec Aortic 23mm - [id number] Implanted:Qty : 1 on 05/16/2014 at OR [facility] N/A: Aorta ST JUAN : CARDIOVASCULAR 07/25/2015 TF-23A / [id number] / Stent Synergy Xd Mr [id number] - [id number] Implanted:Qty : 1 on 04/21/2023 by Christopher Moreno MD at [facility] [place] Solaiemes [id number] 10/14/2023 [id number] / / [id number] documented as of this encounter Advance Directives [...] and were consensually agreed upon. Care Teams Pill Maker Relationship Specialty Start Date End Date Nick Edwards MD [address] [place] [address] PCP - General 01/11/04 documented as of this encounter
--- OUTSIDE RECORDS SUMMARY | 2023-08-28 15:11 | External Medical Summary | Summary of Care ---
Author Name Unknown Organization [facility] Address [address] [facility] [place] [address] Phone [phone] Care Team Providers Care Foster Care Case Manager Name Role Phone Nick Edwards MD Primary Care Provider [phone] Reason for Visit * Reason Onset Date Comments Blood Pressure Readings 05/08/2023 Encounter Details Date Type Department Care Team (Late st Contact Info) Description 05/08/2023 Telephone Nephrology, [facility] [address] [facility] [place] [address] Regina Alonso MD [address] [facility] [place] [address] Blood Pressure Readings Allergies Active Allergy Reactions Criticality Noted Date Comments Felodipine 11/17/2000 plendil Empagliflozin Diarrhea High 06/03/2022 documented as of this encounter (statuses as of 05/11/2023) Medications Medication Sig Dispensed Refills Start Date [...] as of this encounter (statuses as of 05/11/2023) Active Problems Problem Noted Date Diagnosed Date [...] as of this encounter (statuses as of 05/11/2023) Resolved Problems Problem Noted Date Diagnosed Date [...] as of this encounter (statuses as of 05/11/2023) Immunizations Name Administration Dates Next Due COVID-19 mRNA, LNP-s, No Pre serve, 2-Dose Series (Doorbot) 04/03/2021,09/14/2020,08/17/2020 Influenza, Whole Virus 05/03/2018,07/24/2006,07/1998 Pneumococcal Conjugate [...] encounter Miscellaneous Notes * Telephone Encounter - Giuliana Skaggs RN - 05/11/2023 11:09 AM EST Te with pt's regarding blood pressure readings. HE does have a follow up appointment with Cardiology next week. * Telephone Encounter - Regina Alonso MD [...] 05/20/2023 2:30 PM EST Office Visit Cardiology, [address] [place] [address] Oly Brandt PA-C [address] [place] [address] [place] [address] 05/21/2023 11:20 AM EST Office Visit [facility] [address] [place] [facility] [place] [address] Nick Edwards MD [address] [place] [address] 06/05/2023 1:30 PM EST Laboratory Laboratory, [facility] [address] [place] [phone] Gema Wolfe [facility] [address] [place] [address] 06/05/2023 2:00 PM EST Office Visit Cardiology, [facility] [address] [place] [address] Jennifer Morse CRNP 132 [place] [address] 06/23/2023 11:00 AM EST Office Visit Hepatology, [facility] 132 [facility] [place] [address] Rebekah Anguiano MD [address] [place] [address] [place] [address] 06/30/2023 1:00 PM EST Cardiac Studies Cardiac Studies, [facility] 132 [facility] [place] [address] 07/14/2023 10:00 AM EST Office Visit Sleep Disorders [facility] 132 [facility] [place] [phone] Sujey Vega DO [address] [place] [address] 11/03/2023 10:30 AM EDT Office Visit Cardiology, [facility] [address] [facility] [place] [address] Randi Mendoza PA-C [address] [facility] [place] [address] 11/05/2023 11:20 AM EDT Office Visit [facility] [address] [place] [address] Nick Edwards MD [address] [place] [address] 03/14/2024 1:40 PM EDT Office Visit Nephrology, [facility] [address] [facility] [place] [address] Regina Alonso MD 200 [place] [address] Health Maintenance Due Date Last Done Comments Depression Screening 03/29/2021 03/29/2020 COVID-19 Vaccine (2022- 4 season) 2023 05/21/2022, 04/03/2021, 09/14/2020, Additional history exists Zoster Vaccines Completed 08/25/2022, 05/07, 11/17/2012 Influenza Vaccine (FLU shot) Completed 05/2023, 04/10/2022, 04/15/2021, Additional history exists documented as of this encounter Medical Devices Implanted Type Area Rate Marker Device Identifier Shelf Expiration Date Model / Serial / Lot Valve Heart Trifec Aortic 23mm - [id number] Implanted:Qty : 1 on 05/16/2014 at [place] [facility] [place] N/A: Aorta [employer] JUAN : CARDIOVASCULAR 07/25/2015 TF-23A / [id number] / Stent Synergy Xd Mr [id number] - [id number] Implanted:Qty : 1 on 04/21/2023 by Christopher Moreno MD at [facility]ARDIAC LABS [facility] [place] [employer] [id number] 10/14/2023 [id number] / / [id number] documented as of this encounter Advance Directives [...] and were consensually agreed upon. Care Teams Foster Care Case Manager Relationship Specialty Start Date End Date Nick Edwards MD [address] [facility] [address] PCP - General 01/11/04 documented as of this encounter
--- OUTSIDE RECORDS SUMMARY | 2023-08-28 15:11 | External Medical Summary | Summary of Care ---
Author Name Unknown Organization [facility] Address [address] [facility] [place] [address] Phone [phone] Care Team Providers Care Rug Sample Beveler Name Role Phone Nick Edwards MD Primary Care Provider [phone] Reason for Visit * Reason Onset Date Comments Referral 05/18/2023 [facility] D/C New HTN Referral Pt refused appt. Encounter Details Date Type Department Care Team ([facility] st Contact Info) Description 05/18/2023 Telephone Pharmacy Call Center [address] [place] [address] [facility] [address] [place] [address] Referral ([facility] D/C New HTN Referral Pt... Allergies Active Allergy Reactions Criticality Noted Date Comments Felodipine 11/17/2000 plendil Empagliflozin Diarrhea High 06/03/2022 documented as of this encounter (statuses as of 05/18/2023) Medications Medication Sig Dispensed Refills Start Date [...] as of this encounter (statuses as of 05/18/2023) Active Problems Problem Noted Date Diagnosed Date [...] as of this encounter (statuses as of 05/18/2023) Resolved Problems Problem Noted Date Diagnosed Date [...] as of this encounter (statuses as of 05/18/2023) Immunizations Name Administration Dates Next Due COVID-19 mRNA, LNP-s, No Pre serve, 2-Dose Series (GROU.PS) 04/03/2021,09/14/2020,08/17/2020 Influenza, Whole Virus 05/03/2018,07/24/2006 Pneumococcal Conjugate [...] encounter Miscellaneous Notes * Telephone Encounter - Kay Trejo RPh - 05/18/2023 10:17 AM EST Noted. Welcome future referrals if patient wishes to work with [facility]. Kay Trejo, Madiha Clinical Pharmacist Medication Therapy Disease Management 05/18/2023, 10:18 AM * Telephone Encounter - Angie Hand PHARM Tech - 05/18/2023 9:51 AM EST Pt contacted the clinic returning a call. Pt stating his Hypertension is under control. Pt does notwish to schedule the appt from the new HTN referral. Pt refused appt. Patient is discharged from [facility] services at this time. Thanks. Angie Hand Supervisor [employer] [facility] ([facility]) (Formerly Telepharmacy) 05/18/2023, 9:52 AM documented in this encounter Plan of Treatment Upcoming Encounters Date Type Department Care Team (Late st Contact Info) Description 06/05/2023 1:30 PM EST Laboratory Laboratory, [facility] 132 [place] [phone] Gema Wolfe 132 [place] [address] 06/05/2023 2:00 PM EST Office Visit [facility], [facility] 132 [place] [address] Jennifer Morse CRNP [address] [facility] [place] [address] 06/23/2023 11:00 AM EST Office Visit Hepatology, [facility] 132 [place] [address] Rebekah Anguiano MD [address] [facility] [place] [address] 06/30/2023 1:00 PM EST Cardiac Studies Cardiac Studies, [facility] 132 [facility] [address] 07/14/2023 10:00 AM EST Office Visit Sleep Disorders Ctr [facility] 132 [place] [phone] Sujey Vega DO 132 [place] [address] 11/03/2023 10:30 AM EDT Office Visit Cardiology, [facility] 132 [place] [address] Randi Mendoza PA-C 132 [place] [address] 11/05/2023 11:20 AM EDT Office Visit [facility] [address] [place] [phone] Nick Edwards MD [address] [place] [address] 03/14/2024 1:40 PM EDT Office Visit Nephrology, [facility] [address] [place] [address] Regina Alonso MD [address] [place] [address] Health Maintenance Due Date Last Done Comments Depression Screening 03/29/2021 03/29/2020 COVID-19 Vaccine (2022-2 4 season) 2023 05/21/2022, 04/03/2021, 09/14/2020, Additional history exists Zoster Vaccines Completed 08/25/2022, 05/07, 11/17/2012 Influenza Vaccine (FLU shot) Completed 05/2023, 04/10/2022, 04/15/2021, Additional history exists documented as of this encounter Medical Devices Implanted Type Area Leasing Manager Device Identifier Shelf Expiration Date Model / Serial / Lot Valve Heart Trifec Aortic 23mm - [id number] Implanted:Qty : 1 on 05/16/2014 at OR [facility] [place] N/A: Aorta ST JUAN : CARDIOVASCULAR 07/25/2015 TF-23A / [id number] / Stent Synergy Xd Mr [id number] - [id number] Implanted:Qty : 1 on 04/21/2023 by Christopher Moreno MD at CARDIAC LABS [facility] [place] [employer] [id number] 10/14/2023 [id number] / / [id number] documented as of this encounter Advance Directives [...] and were consensually agreed upon. Care Teams Rug Sample Beveler Relationship Specialty Start Date End Date Nick Edwards MD [address] [place] [address] PCP - General 7/8/04 documented as of this encounter
--- OUTSIDE RECORDS SUMMARY | 2023-08-28 15:11 | External Medical Summary | Summary of Care ---
Author Name Unknown Organization [facility] Address [address] [facility] [place] [address] Phone [phone] Care Team Providers Care Traffic Signal Supervisor Maintenance Name Role Phone Nick Edwards MD Primary Care Provider [phone] Reason for Visit * Reason Onset Date Comments Test Results 05/06/2023 Encounter Details Date Type Department Care Team (Late st Contact Info) Description 05/06/2023 Telephone Nephrology, [facility] 200 [place] [address] Regina Alonso MD 200 [place] [address] Test Results Allergies Active Allergy Reactions Criticality [...] mRNA, LNP-s, No Pre serve, 2-Dose Series ([employer]Trip) 04/03/2021,09/14/2020,08/17/2020 Influenza, Whole Virus 05/03/2018,07/24/2006,07/1998 Pneumococcal Conjugate [...] encounter Miscellaneous Notes * Telephone Encounter - Mi Gee OSA - 05/08/2023 4:48 PM EDT Pt scheduled for first opening with provider * Telephone Encounter - Giuliana Skaggs RN - 05/07/2023 8:28 AM EDT TE with pt regarding lab and CXR results. 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 Please schedule this pt with Dr Alonso at [facility]. * Telephone Encounter - Giuliana Skaggs RN - 05/07/2023 8:25 AM EDT ----- Message from Regina Alonso MD sent at 05/06/2023 2:52 PM EDT ----- CXR reassuring w/ no evidence of HF; see separate note re labs Cardiology fyi * Telephone Encounter - Giuliana Skaggs RN - 05/06/2023 3:51 PM EDT LMAM with call back number regarding test results. * Telephone Encounter - Giuliana Skaggs RN - 05/06/2023 3:50 PM EDT ----- Message from Regina Alonso MD sent at 05/06/2023 2:54 PM EDT ----- Blood tests of kidney function a bit worse than baseline, likely in setting of uncontrolled HTN. Continue meds as at OV and w/ planned lab recheck as at OV. See separate encounter re CXR Cardiology fyi documented in this encounter Plan of Treatment Upcoming Encounters Date Type Department Care Team (Late st Contact Info) Description 05/20/2023 2:30 PM EST Office Visit Cardiology, [facility] 132 [facility] [place] [address] Oly Brandt PA-C [address] [place] [address] [place] [address] 05/21/2023 11:20 AM EST Office Visit [facility] [address] [place] [address] Nick Edwards MD [address] [place] [address] 06/05/2023 1:30 PM EST Laboratory Laboratory, [facility] [place] [phone] [facility] [place] [address] 06/05/2023 2:00 PM EST Office Visit Cardiology, [facility] 132 [facility] [place] [address] Jennifer Morse CRNP 132 [facility] [place], [place] [address] 06/23/2023 11:00 AM EST Office Visit Hepatology, [facility] 132 [facility] [place] [address] Rebekah Anguiano MD [address] [place] [address] Ave [place] [address] 06/30/2023 1:00 PM EST Cardiac Studies Cardiac Studies, [facility] [address] [facility] [place] [address] 07/14/2023 10:00 AM EST Office Visit [facility] Disorders [facility]tr [facility] [place] [phone] Sujey Vega DO [facility] [address] 11/03/2023 10:30 AM EDT Office Visit Cardiology, [facility] [address] [facility] [address] Randi Mendoza PA-C 132 [place] [address] 11/05/2023 11:20 AM EDT Office Visit [facility] [address] [place] [address] Nick Edwards MD [address] [place] [address] 03/14/2024 1:40 PM EDT Office Visit Nephrology, [facility] 200 [facility], [place] [address] Regina Alonso MD 200 [facility], [place] [address] Health Maintenance Due Date Last Done Comments Depression Screening 03/29/2021 03/29/2020 COVID-19 Vaccine (5 2022-2 4 season) 2023 05/21/2022, 04/03/2021, 09/14/2020, Additional history exists Zoster Vaccines Completed 08/25/2022, 05/07, 11/17/2012 Influenza Vaccine (FLU shot) Completed 05/2023, 04/10/2022, 04/15/2021, Additional history exists documented as of this encounter Medical Devices Implanted Type Area Local Bulk Driver Device Identifier Shelf Expiration Date Model / Serial / Lot Valve Heart Trifec Aortic 23mm - [id number] Implanted:Qty : 1 on 05/16/2014 at [place] [facility] [place] N/A: Aorta ST JUAN : CARDIOVASCULAR 07/25/2015 TF-23A / [id number] / Stent Synergy Xd Mr [id number] - [id number] Implanted:Qty : 1 on 04/21/2023 by Christopher Moreno MD at [facility]ARDIAC LAB[facility] [employer] [id number] 10/14/2023 [id number] / / [id number] documented as of this encounter Advance Directives [...] and were consensually agreed upon. Care Teams Traffic Signal Supervisor Maintenance Relationship Specialty Start Date End Date Nick Edwards MD [address] [place] [address] PCP - General 01/11/04 documented as of this encounter
--- OUTSIDE RECORDS SUMMARY | 2023-08-28 15:11 | External Medical Summary | Summary of Care ---
Author Name Unknown Organization [facility] Address [address] [facility] [place] [address] Phone [phone] Care Team Providers Care Assembler Cards And Announcements Name Role Phone Nick Edwards MD Primary Care Provider [phone] Reason for Visit * Reason Onset Date Comments Blood Pressure Readings 05/08/2023 Encounter Details Date Type Department Care Team (Late st Contact Info) Description 05/08/2023 Telephone Nephrology, [facility] 200 [facility] [place] [address] Regina Alonso MD 200 [facility] [place] [address] Blood Pressure Readings Allergies Active Allergy Reactions [...] mRNA, LNP-s, No Pre serve, 2-Dose Series ([employer]) 04/03/2021,09/14/2020,08/17/2020 Influenza, Whole Virus 05/03/2018,07/24/2006,07/1998 Pneumococcal Conjugate [...] PM EST Office Visit Cardiology, [facility] 132 [facility] [place] [address] Oly Barndt PA-C [address] [place] [address] [place] [phone] 05/21/2023 11:20 AM EST Office Visit [address] [place] [address] Nick Edwards MD [address] [place] [address] 06/05/2023 1:30 PM EST Laboratory Laboratory, [facility] 132 [place] [address] [facility] 132 [facility] [place] [address] 06/05/2023 2:00 PM EST Office Visit Cardiology, [facility] [address] [place] [address] Jennifer Morse CRNP [address] [facility] [place] [address] 06/23/2023 11:00 AM EST Office Visit Hepatology, [facility] [address] [place] [address] Rebekah Anguiano MD [address] [place] [address] 06/30/2023 1:00 PM EST Cardiac Studies Cardiac Studies, [facility] 132 [facility] [place] [address] 07/14/2023 10:00 AM EST Office Visit Sleep Disorders [facility] 132 [place] [address] Sujey Vega DO [address] [place] [address] 11/03/2023 10:30 AM EDT Office Visit Cardiology, [facility] 132 [place] [address] Randi Mendoza PA-C [address] [place] [address] 11/05/2023 11:20 AM EDT Office Visit [facility] [address] [facility], [place] [address] Nick Edwards MD [address] [place] [address] 03/14/2024 1:40 PM EDT Office Visit Nephrology, [facility] 200 [facility] [place] [address] Regina Alonso MD [address] [facility] [place] [address] Health Maintenance Due Date Last Done Comments Depression Screening 03/29/2021 03/29/2020 COVID-19 Vaccine (2022-08 4 season) 2023 05/21/2022, 04/03/2021, 09/14/2020, Additional history exists Zoster Vaccines Completed 08/25/2022, 05/07, 11/17/2012 Influenza Vaccine (FLU shot) Completed 05/2023, 04/10/2022, 04/15/2021, Additional history exists documented as of this encounter Medical Devices Implanted Type Area Glove Turner Device Identifier Shelf Expiration Date Model / Serial / Lot Valve Heart Trifec Aortic 23mm - [id number] Implanted:Qty : 1 on 05/16/2014 at [place] [facility] [place] N/A: Aorta ST JUAN : CARDIOVASCULAR 07/25/2015 TF-23A / [id number] / Stent Synergy Xd Mr [id number] - [id number] Implanted:Qty : 1 on 04/21/2023 by Christopher Moreno MD at [facility] [place] [facility] [place] [employer] [id number] 10/14/2023 [id number] / / [id number] documented as of this encounter Advance Directives [...] and were consensually agreed upon. Care Teams Assembler Cards And Announcements Relationship Specialty Start Date End Date Nick Edwards MD [address] [place] [address] PCP - General 01/11/04 documented as of this encounter
--- OUTSIDE RECORDS SUMMARY | 2023-08-28 15:11 | External Medical Summary ---
Author Name Unknown Address Unknown Organization K0[facility] [place] [address] [place] [address] Laboratory Report Ordering Provider Test Date Status RACHELLE MACIEL 06/05/2023 13:16:48 Final Observation Date Value Abnormality Reference (Units ) Status BUN 06/05/2023 13:16:48 52 Above high normal 6-20 (mg/dL) Final Creatinine 06/05/2023 13:16:48 2.0 Above high normal 0.6-1.2 (mg/dL) Final Glomerular filtration rate/1.73 sq M.predicted [Volume Rate/Area] in Serum, Plasma or Blood by Creatinine-based formula (CKD-EPI) 06/05/2023 13:16:48 33 Below low normal >=60 (mL/min) Final eGFR is calculated based on the CKD-EPI 2020 equation SODIUM 06/05/2023 13:16:48 138 135-146 (m mol/L) Final Potassium 06/05/2023 13:16:48 5.3 Above high normal 3. 5-5.1 (mmol/L) Final Cl 06/05/2023 13:16:48 104 98-107 (mm ol/L) Final CO2 06/05/2023 13:16:48 26 22-32 (mmo l/L) Final Anion gap 06/05/2023 13:16:48 8 7-15 (mmol /L) Final Glucose 06/05/2023 13:16:48 84 70-120 (mg /dL) Final Calcium 06/05/2023 13:16:48 8.8 8.4-10.2 ( mg/dL) Final Performing Location [facility] [place] [address] [place] [address]
--- OUTSIDE RECORDS SUMMARY | 2023-08-28 15:12 | External Medical Summary | Summary of Care ---
Author Name Unknown Organization [facility] Address [address] [facility] [place] [address] Phone [phone] Care Team Providers Care Environmental Director Name Role Phone Nick Edwards MD Primary Care Provider [phone] Reason for Visit * Reason Comments Hospital Follow-Up Aortic valve replace ment Encounter Details Date Type Department Care Team (Late st Contact Info) Description 04/30/2023 10:20 AM EDT Office Visit [facility] [address] [place] [address] Nick Edwards MD [address] [place] [address] Laceration of right upper extremity, initial encounter*; S/P AVR; Stage 3 chronic kidney disease, unspecified whether stage 3a or 3b CKD ([facility]); Type 2 diabetes mellitus with hemoglobin A1c goal of less than 8.0% ([facility]) Allergies Active Allergy Reactions Criticality Noted Date Comments Felodipine 11/17/2000 plendil Empagliflozin Diarrhea High 06/03/2022 documented as of this encounter (statuses as of 04/30/2023) Medications Medication Sig Dispensed Refills Start Date [...] the morning. 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 60 Tablet 5 03/16/2023 Active Clopidogrel Bisulfate 75 MG Oral Tablet (pLAVix) Take 1 Tablet by mouth in the morning. 90 Tablet 3 04/09/2023 Active CPAP by Device route every night at bedtime. 0 Active documented as of this encounter (statuses as of 04/30/2023) Active Problems Problem Noted Date Diagnosed Date [...] as of this encounter (statuses as of 04/30/2023) Resolved Problems Problem Noted Date Diagnosed Date [...] as of this encounter (statuses as of 04/30/2023) Immunizations Name Administration Dates Next Due COVID-19 mRNA, LNP-s, No Pre serve, 2-Dose Series ([employer]) 04/03/2021,09/14/2020,08/17/2020 Influenza, Whole Virus 05/03/2018,07/24/2006 Pneumococcal Conjugate [...] Sign Reading Time Taken Comments Blood Pressure 120/84 04/30/2023 10:28 AM EDT Pulse 100 04/30/2023 10:28 AM EDT Temperature 36.2 C (97.1 F) 04/30/2023 1 0:28 AM EDT Respiratory Rate 16 04/30/2023 10:2 8 AM EDT Oxygen Saturation 98% 04/30/2023 10: 28 AM EDT Inhaled Oxygen Concentration - - Weight 94.3 kg (207 lb 12.8 oz) 023 10:28 AM EDT Height 180.3 cm (5' 11") 04/30/2023 10: 28 AM EDT Body Mass Index 28.98 04/30/2023 10:28 AM EDT documented in this [...] as of this encounter Progress Notes * NAOMI Shelton - 04/30/2023 11:23 AM EDT Pre-Administration Time Out Procedure Performed: Yes Patient Identified (Ask Name/Date of ): Yes Does the patient have a fever greater than 101 degrees today? No Patient allergic to latex? No Has the patient ever fainted after receiving an injection? No VFC Stock: No Immunization(s) verified: Yes, Immunization Name: Tdap (Boostrix), VIS Sheet(s) given: Yes Verified Side and Site: Yes Verified Shot(s) with Parent(s)/Patient: Yes * Nick Edwards MD - 04/30/2023 10:57 AM EDT Subjective: Gregorio Davidson is a 82 year old male. Chief Complaint Patient presents with Hospital Follow-Up Aortic valve replacement HPI: 82-year-old seen today for the 1st time after undergoing TAVR procedure per Dr. Moreno at [facility] on April 21. He did well with the procedure. Of note is that he had had prior aortic valve replacement-tissue valve. He saw Cardiology yesterday. No changes made. He is scheduled to see them again in June. I did apparently bring up the topic of cardiac rehab. At this point he is not interested. He definitely has noted a change since having the procedure done. This is most notable in regards to the lower leg edema. He has essentially Um had resolution of the significant edema that he had. Hedoes remain on Lasix. He carries a diagnosis of diabetes. His hemoglobin A1c in November was 6.2 being very good. He was takenoff of metformin last november in large part because of underlying chronic kidney disease. He also had been taken off of Jardiance last May for the same reason. So right now he is not taking anythingfor diabetes but he notes that his blood sugars fasting are consistently right around 120. Patient Active Problem List Diagnosis Code ADVANCE [...] diabetic peripheral angiopathy without gangrene (HCC) E11.51 Current Outpatient Medications Medication Sig Dispense Refill [...] by mouth every evening. 90 Tablet 3 Allopurinol 100 MG Oral Tablet (Zyloprim) TAKE ONE TABLET BY MOUTH DAILY OR DIRECTED 90 Tablet 1 Ferrous Sulfate 325 (65 Fe) MG Oral Tablet (Feosol) Take 1 Tablet by mouth in the morning. 90 Tablet 3 Furosemide 40 MG Oral Tablet (Lasix) TAKE 1 TABLET BY MOUTH EVERY DAY IN THE MORNING 90 Tablet 3 Carvedilol 3.125 MG Oral Tablet (Coreg) 1/2 tab twice daily 90 Tablet 1 hydrALAZINE HCl 10 MG Oral Tablet (Apresoline) Take 0.5 Tablets by mouth in the morning and 0.5 Tablets before bedtime. 90 Tablet 0 TRUEplus Lancets 33G 2X'S A DAY DX E11.9 200 Each 3 Pantoprazole Sodium 40 MG Oral Tablet Delayed Release (Protonix) Take 1 Tablet by mouth in the morning and 1 Tablet in the evening. 60 Tablet 5 Clopidogrel Bisulfate 75 MG Oral Tablet (pLAVix) Take 1 Tablet by mouth in the morning. 90 Tablet 3 CPAP by Device route every night at bedtime. No current facility-administered medications for this visit. Review of patient's allergies indicates: Allergen Reactions Jardiance [Empagliflozin] Diarrhea Felodipine plendil Objective: BP 120/84 (BP Site: Left Arm, BP Position: Sitting, BP Cuff Size: Regular) | Pulse 100 | Temp 36.2 C (97.1 F) (Temporal Artery) | Resp 16 | Ht 1.803 m (5' 11") | Wt 94.3 kg (207 lb 12.8 oz) | SpO2 98% | BMI 28.98 kg/m | BSA 2.17 m Physical Exam: CONST: alert, pleasant, no acute distress HEAD: normocephalic, atraumatic Eyes - PERRLA, EOM'I OROPHARYNX: clear, no swelling or erythema, moist CV: regular rate and rhythm, no murmur CHEST: clear to auscultation bilaterally, no rales or wheezing ABD: soft, non tender, non distended, no masses or hepatosplenomegaly EXT: no edema,NEURO: AAOx3, no gross focal deficits, cerebellar signs normal, affect appropriate MENTAL STATUS: no evidence of thought disorder, no delusional thought, no evidence of paranoia, thought is non-tangential. SKIN: He has a laceration of the right upper arm that is about 1-day-old. He actually scratched open the the skin in his arm. No signs of infection ASSESSMENT/PLAN: Laceration of right upper extremity, initial encounter (Primary) - TDAP (AGE 10 AND OLDER)(BOOSTRIX) S/P AVR-doing very well Stage 3 chronic kidney disease, unspecified whether stage 3a or 3b CKD ([facility]) - BASIC METABOLIC PANEL; Future; Expected date: 04/30/2023 He does have follow up with Dr. Dennis in nephrology in less than a week Type 2 diabetes mellitus with hemoglobin A1c goal of less than 8.0% ([facility]) - HEMOGLOBIN A1C; Future; Expected date: 04/30/2023 If his hemoglobin is markedly increased, will start on glipizide. I will see him again in 6 months. Nick Edwards MD documented in this encounter Nursing Notes * NAOMI Shelton - 04/30/2023 10:28 AM EDT Gregorio Davidson is a 82 year old male who presents today for Chief Complaint Patient presents with Hospital Follow-Up Aortic valve replacement documented in this encounter Plan of Treatment Upcoming Encounters Date Type Department Care Team (Late st Contact Info) Description 05/05/2023 10:20 AM EDT Office Visit Nephrology, [facility] [address] [place] [address] Regina Alonso MD [address] [place] [address] 05/21/2023 11:20 AM EST Office Visit [facility] [address] [place] [address] Nick Edwards MD [address] [place] [address] 06/05/2023 12:30 PM EST Laboratory Laboratory, [facility] [address] [facility] [place] [phone] [facility] [address] [facility] [place] [address] 06/05/2023 2:00 PM EST Office Visit Cardiology, [facility] [address] [facility] [place] [address] Jennifer Morse CRNP [address] [place] [address] 06/23/2023 11:00 AM EST Office Visit Hepatology, [facility] [address] [facility] [place] [address] Rebekah Anguiano MD [address] [facility] [place] [address] 07/14/2023 10:00 AM EST Office Visit Sleep Disorders Ctr [facility] [address] [facility] [place] [phone] Sujey Vega DO [address] [place] [address] 11/03/2023 10:30 AM EDT Office Visit Cardiology, [facility] [address] [facility] [address] Randi Mendoza PA-C [address] [place] [address] 11/05/2023 11:20 AM EDT Office Visit [facility] [address] [place] [phone] Nick Edwards MD [address] [place] [address] Pending Results Name Type Priority Associated Diagnoses Date /Time HEMOGLOBIN A1C Lab Routine Type 2 diabetes mellitus with hemoglobin A1c goal of less than 8.0% ([facility]) 04/30/2023 11:25 AM EDT Scheduled Orders Name Type Priority Associated Diagnoses Orde r Schedule HEMOGLOBIN A1C Lab Routine Type 2 diabetes mellitus with hemoglobin A1c goal of less than 8.0% ([facility]) Expected: 04/30/2023 (Approximate), Expires: 04/29/2024 Health Maintenance Due Date Last Done Comments Depression Screening 03/29/2021 03/29/2020 COVID-19 Vaccine (2022-08 4 season) 2023 05/21/2022, 04/03/2021, 09/14/2020, Additional history exists Zoster Vaccines Completed 08/25/2022, 05/07, 11/17/2012 Influenza Vaccine (FLU shot) Completed 05/2023, 04/10/2022, 04/15/2021, Additional history exists documented as of this encounter Medical Devices Implanted Type Area Route Rider Device Identifier Shelf Expiration Date Model / Serial / Lot Valve Heart Trifec Aortic 23mm - [id number] Implanted:Qty : 1 on [place]16[place]2014 [place] [facility] [place]: Aorta [employer] : CARDIOVASCULAR 07/25/2015 TF-23A / [id number] / Stent Synergy Xd Mr [id number] - [id number] Implanted:Qty : 1 on 04/21/2023 by Christopher Moreno MD at [facility] [place] [facility] [employer] [id number] 10/14/2023 [id number] / / [id number] documented as of this encounter Visit Diagnoses Diagnosis Laceration of right upper extremity, initial encounter- Primary S/P AVR Heart valve replaced by other means Stage 3 chronic kidney disease, unspecified whether stage 3a or 3b CKD (HCC) Type 2 diabetes mellitus with hemoglobin A1c goal of less than 8.0% (HCC) documented in this encounter Advance Directives [...] and were consensually agreed upon. Care Teams Environmental Director Relationship Specialty Start Date End Date Nick Edwards MD [address] [place] [address] PCP - General 01/11/04 documented as of this encounter
--- OUTSIDE RECORDS SUMMARY | 2023-08-28 15:12 | External Medical Summary ---
Author Name Unknown Address Unknown Organization K09:[facility] [place] [place] [address] Laboratory Report Ordering Provider Test Date Status JAVY HUFFMAN 05/05/2023 12:36:19 Final Observation Date Value Abnormality Reference (Units ) Status BUN 05/05/2023 12:36:19 43 Above high normal 6-20 (mg/dL) Final Creatinine 05/05/2023 12:36:19 2.3 Above high normal 0.6-1.2 (mg/dL) Final Glomerular filtration rate/1.73 sq M.predicted [Volume Rate/Area] in Serum, Plasma or Blood by Creatinine-based formula (CKD-EPI) 05/05/2023 12:36:19 28 Below low normal >=60 (mL/min) Final eGFR is calculated based on the CKD-EPI 2020 equation SODIUM 05/05/2023 12:36:19 141 135-146 (m mol/L) Final Potassium 05/05/2023 12:36:19 4.4 3.5-5.1 (m mol/L) Final Cl 05/05/2023 12:36:19 101 98-107 (mm ol/L) Final CO2 05/05/2023 12:36:19 31 22-32 (mmo l/L) Final Anion gap 05/05/2023 12:36:19 9 7-15 (mmol /L) Final Glucose 05/05/2023 12:36:19 116 70-120 (mg /dL) Final Calcium 05/05/2023 12:36:19 8.8 8.4-10.2 ( mg/dL) Final Performing Location [facility] [place] [address]
--- OUTSIDE RECORDS SUMMARY | 2023-08-28 15:12 | External Medical Summary | Summary of Care ---
Author Name Unknown Organization [facility] Address [address] [facility] [place] [address] Phone [phone] Care Team Providers Care Making Machine Operator Name Role Phone Raheem Edwards MD Primary Care Provider [phone] Reason for Visit * Reason Onset Date Comments Medication Refill 05/05/2023 Encounter Details Date Type Department Care Team (Late st Contact Info) Description 05/05/2023 Refill [facility] [address] [place] [address] Raheem Edwards MD [address] [place] [address] Gastrointestinal hemorrhage associated with gastric ulcer Allergies Active Allergy Reactions Criticality Noted Date Comments Felodipine 11/17/2000 plendil Empagliflozin Diarrhea High 06/03/2022 documented as of this encounter (statuses as of 05/06/2023) Medications Medication Sig Dispensed Refills Start Date [...] ations:Diastolic heart failure, unspecified HF chronicity (HCC) Take 0.5 Tablets by mouth in the morning and 0.5 Tablets before bedtime. 90 Tablet 0 02/24/2023 3 Active TRUEplus Lancets 33G 2X'S A DAY [...] evening. 180 Tablet 3 05/06/2023 4 Active Pantoprazole Sodium 40 MG Oral Tablet Delayed Release (Protonix)Indicat ions:Gastrointest inal hemorrhage associated with gastric ulcer Take 1 Tablet by mouth in the morning and 1 Tablet in the evening. 60 Tablet 5 03/16/2023 3 Discontinue d(Refill) documented as of this encounter (statuses as of 05/06/2023) Active Problems Problem Noted Date Diagnosed Date [...] as of this encounter (statuses as of 05/06/2023) Resolved Problems Problem Noted Date Diagnosed Date [...] as of this encounter (statuses as of 05/06/2023) Immunizations Name Administration Dates Next Due COVID-19 mRNA, LNP-s, No Pre serve, 2-Dose Series (SOPATec) 04/03/2021,09/14/2020,08/17/2020 Influenza, Whole Virus 05/03/2018,07/24/2006 Pneumococcal Conjugate [...] Telephone Encounter - Raheem Edwards MD - 05/06/2023 10:37 AM EDTSigned Prescriptions: Disp Refills Pantoprazole Sodium 40 MG Oral Tablet Gloria*180 Ta*3 Sig: Take 1 Tablet by mouth in the morning and 1 Tablet in the evening.Authorizing Provider: RAHEEM EDWARDS------ documented in this encounter Plan of Treatment Upcoming Encounters Date Type Department Care Team (Late st Contact Info) Description 05/20/2023 2:30 PM EST Office Visit Cardiology, [address] [address] Oly Brandt PA-C [address] [place], [place] [address] [place] [address] 05/21/2023 11:20 AM EST Office Visit [facility] [address] [place] [phone] Raheem Edwards MD [address] [place], [place] [phone] 06/05/2023 1:30 PM EST Laboratory Laboratory, [facility] [address] [facility] [place] [phone] [place], Lab [address] [place] [address] 06/05/2023 2:00 PM EST Office Visit Cardiology, [facility] [address] [facility] [place], [place] [address] Jennifer Morse CRNP [address] [facility] [place] [address] 06/23/2023 11:00 AM EST Office Visit Hepatology, [facility] [address] [facility] [place] [address] Rebekah Anguiano MD [address] [place] [address] 06/30/2023 1:00 PM EST Cardiac Studies Cardiac Studies, [facility] [address] [facility] [place] [address] 07/14/2023 10:00 AM EST Office Visit Sleep Disorders [facility] [address] [facility] [place] [phone] Sujey Vega DO [address] [facility] [place] [address] 11/03/2023 10:30 AM EDT Office Visit Cardiology, [facility] [address] [facility] [place] [address] Randi Mendoza PA-C [address] [facility] [place] [address] 11/05/2023 11:20 AM EDT Office Visit [place] [address] [place] [phone] Raheem Edwards MD [address] [place] [address] 03/14/2024 1:40 PM EDT Office Visit Nephrology, [facility] [address] [place] [address] Regina Alonso MD [address] [place] [address] Health Maintenance Due Date Last Done Comments Depression Screening 03/29/2021 03/29/2020 COVID-19 Vaccine (2022-08 4 season) 2023 05/21/2022, 04/03/2021, 09/14/2020, Additional history exists Zoster Vaccines Completed 08/25/2022, 05/07, 11/17/2012 Influenza Vaccine (FLU shot) Completed 05/2023, 04/10/2022, 04/15/2021, Additional history exists documented as of this encounter Medical Devices Implanted Type Area Teacher Ballet Device Identifier Shelf Expiration Date Model / Serial / Lot Valve Heart Trifec Aortic 23mm - [id number] Implanted:Qty : 1 on 05/16/2014 at [place] [facility] [place] N/A: Aorta [employer] : CARDIOVASCULAR 07/25/2015 TF-23A / [id number] / Stent Synergy Xd Mr [id number] - [id number] Implanted:Qty : 1 on 04/21/2023 by Christopher Moreno MD at [facility] [place] [id number] 10/14/2023 [id number] / / [id number] documented as of this encounter Visit Diagnoses Diagnosis Gastrointestinal hemorrhage associated with gastric ulcer documented in this encounter Advance Directives Latest [...] and were consensually agreed upon. Care Teams Making Machine Operator Relationship Specialty Start Date End Date Raheem Edwards MD [address] [place] [address] PCP - General 01/11/04 documented as of this encounter
--- OUTSIDE RECORDS SUMMARY | 2023-08-28 15:12 | External Medical Summary | Summary of Care ---
Author Name Unknown Organization [facility] Address [address] [facility] [place] [address] Phone [phone] Care Team Providers Care Filbert Grower Name Role Phone Nick Edwards MD Primary Care Provider [phone] Reason for Visit * Reason Comments Follow Up Encounter Details Date Type Department Care Team (Latest Contact Info) Description 04/29/2023 10:00 AM EDT Office Visit Cardiology, [facility] [address] [place] [address] Jennifer Morse CRNP [address] [place] [address] History of transcatheter aortic valve replacement (TAVR)*; Stenosis of prosthetic aortic valve, subsequent encounter; Nonobstructive atherosclerosis of coronary artery; Chronic atrial fibrillation (HCC); HTN, goal below 140/90; Dyslipidemia, goal LDL below 70 Allergies Active Allergy Reactions Criticality Noted Date Comments Felodipine 11/17/2000 plendil Empagliflozin Diarrhea High 06/03/2022 documented as of this encounter (statuses as of 04/29/2023) Medications Medication Sig Dispensed Refills Start Date [...] as of this encounter (statuses as of 04/29/2023) Active Problems Problem Noted Date Diagnosed Date S/P TAVR (transcatheter aortic valve replacement ) [...] as of this encounter (statuses as of 04/29/2023) Resolved Problems Problem Noted Date Diagnosed Date [...] as of this encounter (statuses as of 04/29/2023) Immunizations Name Administration Dates Next Due COVID-19 [...] yrs 05/18/2019 TDAP (age 10 and older)(Boostrix) 11/05/2012 Varicella Zoster Vaccine (Adult) 11/17/2012 Zoster Vaccine [...] Sign Reading Time Taken Comments Blood Pressure 114/68 04/29/2023 9:41 AM EDT Pulse 64 04/29/2023 9:41 AM EDT Temperature - - Respiratory Rate 18 04/29/2023 9:41 AM EDT Oxygen Saturation - - Inhaled Oxygen Concentration - - Weight 93.9 kg (207 lb 1.6 oz) 04/29/2023 9:41 A M EDT Height - - Body Mass Index 28.88 04/21/2023 6:22 AM EDT documented in this encounter Functional [...] this encounter Patient Instructions * Patient Instructions* ANKUR Berry - 04/29/2023 9:42 AM EDT 1. No routine dental work should be completed in the first 6 months after TAVR. However if an acuteissue arises, patient is to alert the valve team. Antibiotics are needed for all dental work: Amoxicillin 2g- Take 4 capsules 1 hour prior to any dental work 2. Slowly increase activity- no strenuous activities or driving x4 weeks post TAVR. Will discuss cardiac rehab at 1 month follow up 3. Continue Aspirin 81 mg daily and Plavix 75 mg daily. 4. Keep follow up appt in June with echo and labs. Incisional Care -Cleanse incisions daily with soap and water. Do not vigorous scrub your incisions. -Pat the skin gently to dry. -Do not peel/pick at glue or scabs from your incisions. Allow them to fall off on their own. -If there is drainage from your incision, please cover it with a dressing. This can be a band-aid or with gauze and tape. -You may leave your incision open to air if there is no drainage present. -Do not apply lotions, ointments, or powder to your incisions unless cleared by your provider. Signs/Symptoms To Report: Please contact your surgeon or provider for the following: -You develop fevers or chills. -Redness, swelling, or warmth at or around the incision site. -Foul odor or purulent drainage from incision site. -Purulent drainage is a thick/milky discharge from a wound. Color may vary from yellow, brown, or green. -If there is an increase in drainage or oozing from your incision. -If your incision appears to be opening further than the incision line. -Increased pain at your incision site. documented in this encounter Progress Notes * ANKUR Berry - 04/29/2023 10:00 AM EDT Valve Clinic Cardiology Outpatient Clinic Note 04/29/2023 Patient disposition: 1 week TAVR follow up. Primary Commercial Counsel Dr. Calero/Randi Mendoza PA-C Past medical history: Aortic valve disease status post aortic valve replacement for severe calcific aortic stenosis, May 2014, receiving a [address] Jewel Trifecta bioprosthesis. Severe aortic valve prosthesis stenosis, s/p TAVR (# 23 mm Ricci Minesh S3 Ultra valve ), Unsuccessful attempt at [place], 04/21/2023 Nonobstructive CAD per cardiac catheterization, 03/13/2023 at [facility] Chronic diastolic CHF Permanent atrial fibrillation CHADSVASC [...] TAVR on 04/21/[address] Moreno at [facility]. Unsuccessful attempt of [place]IL[place] noted. "We implanted [...] common iliac artery Unsuccessful attempt at [place] Toady the patient presents feeling well. Notes a significant improvement in his breathing and functional capacity over the last week. No chest pain, palpitations, dizziness, syncope or near syncope. No orthopnea, PND, or increased lower extremity edema. No fever, chills, cough, hematochezia, melena, or hemoptysis. EKG today showing AFIB, 64 bpm. He states he is compliant with all [...] by Christopher Moreno MD at [facility] EGD, FLEXIBLE, DIAGNOSTIC N/A 12/16/2022 [facility], EGD , non-bleeding gastric ulcer (Ld Class III) / biopsies shows mild to moderate inflammation / MISCELLANEOUS ORDER ([facility] ONLY) 09/04/2003 [place]/ bilateral quad rupture repair and repeat x 1 OTHER 05/06/2007 [place]/ laser vaporizationof prostate REPAIR INITIAL INCISIONAL OR VENTRAL HERNIA; REDUCIBLE Left REPLACE AORTIC VALVE, PERCUTANEOUS FEMORAL Bilateral 04/21/2023 REPLACE AORTIC VALVE, PERCUTANEOUS FEMORAL performed by Christopher Moreno MD at [facility] REPLACE AORTIC VALVE, PERCUTANEOUS FEMORAL N/A 04/21/2023 REPLACE AORTIC VALVE, PERCUTANEOUS FEMORAL performed by Jose Antonio Lewis MD at [facility] REPLACEMENT AORTIC VALVE, BYPASS WITH PROSTHETIC VALVE 05/16/2014 REPLACEMENT AORTIC VALVE performed by Jacob Crane MD at OR [facility] Social History Tobacco Use Smoking status: Never Smokeless tobacco: Never Vaping Use Vaping Use: Never used Substance Use Topics Alcohol use: Yes Comment: a few drinks/month Drug use: No Review of patient's allergies indicates: Allergen Reactions Jardiance [Empagliflozin] Diarrhea Felodipine plendil Review of Systems: See HPI for pertinent positives. All others negative, other than those noted in HPI. Physical Exam BP 114/68 | Pulse 64 | Resp 18 | Wt 93.9 kg (207 lb 1.6 oz) | BMI 28.88 kg/m | BSA 2.17 m General: No acute distress. A+Ox3. HEENT: [...] pericardial effusion is noted. Cardiac cath at [facility]- pre TAVR 03/13/2023 Coronary disease - hemodynamically [...] S3 Ultra valve ), Unsuccessful attempt at [facility], 04/21/2023 -NYHA class 2 1. No routine dental work should be completed in the first 6 months after TAVR. However if an acuteissue arises, patient is to alert the valve team. Antibiotics are needed for all dental work: Amoxicillin 2g- Take 4 capsules 1 hour prior to any dental work 2. Slowly increase activity- no strenuous activities or driving x4 weeks post TAVR. Will discuss cardiac rehab at 1 month follow up 3. Aspirin 81 mg daily continued indefinitely, continue Plavix 75 mg daily. Will reach out to Dr. Moreno regarding duration of DAPT use. (The left main coronary artery was protected using snorkel stent technique). Likely needs continued up to 12 months. 4. Keep follow up appt in June with echo and labs. 3. Nonobstructive atherosclerosis of coronary artery -Nonobstructive CAD per cardiac catheterization, 03/13/2023 at [facility] 4. Permanent atrial fibrillation -Permanent atrial fibrillation, ventricular rates well controlled. -CHADSVASC 6 (age, DM, HTN, HF, CAD)-- - not on AC due to bleeding ulcer 5. Hypertension goal below 140/90 Blood pressure is well controlled 1. Continue carvedilol and hydralazine as ordered 6. Hyperlipidemia, LDL goal below 70 1. Continue atorvastatin 40 mg daily The patient agrees to the above plan and will call with additional questions or concerns. ER with all emergencies advised. Check-out note: Follow up as scheduled. PLUS 6 month follow up with general cards (radha or MICHAEL) I spent a total of 40 minutes on the date of service in preparation, delivery, and documentation ofthe care provided to Gregorio Davidson excluding any time spent in the performance of separately billed services. ANKUR Stone, Department of Cardiology This chart was completed in part utilizing Swing by [employer] Speech Voice Recognition Software. Grammatical errors, random [...] documented in this encounter Nursing Notes * Donna Kennedy LPN - 04/29/2023 9:41 AM EDT Examination Room: 4 Name: Gregorio Davidson Date of : (1940) Reason for Visit: Follow up Interim Hospitalization(s): Denies Problems/Concerns: Denies Chest Pain/SOB: Denies My [facility] is a way you can [...] Upcoming Encounters Date Type Department Care Team ([facility] st Contact Info) Description 04/30/2023 10:20 AM EDT Office Visit [address] [address] Nick Edwards MD [address] [place] [address] 05/05/2023 10:20 AM EDT Office Visit Nephrology, [facility] [address] [facility] [place], [place] [address] Regina Alonso MD [address] [facility] [place], [place] [address] 05/21/2023 11:20 AM EST Office Visit [facility] [place] [address] [place] [address] Nick Edwards MD [address] [place] [address] 06/05/2023 12:30 PM EST Laboratory Laboratory, [facility] [phone] [facility] [address] [place] [address] 06/05/2023 2:00 PM EST Office Visit Cardiology, [facility] [address] [place] [address] Jennfier Morse CRNP 132 [place] [address] 06/23/2023 11:00 AM EST Office Visit Hepatology, [facility] 132 [facility] [place] [address] Rebekah Anguiano MD [address] [facility] [place] [address] 07/14/2023 10:00 AM EST Office Visit [facility] [address] [facility] [place] [phone] Sujey Vega, DO [address] [place] [address] 11/03/2023 10:30 AM EDT Office Visit Cardiology, [facility] [address] [place] [address] Randi Mendoza PA-C [address] [place] [address] Scheduled Orders Name Type Priority Associated Diagnoses Orde r Schedule EKG EKG Routine Stenosis of prosthetic aortic valve, subsequent encounter Ordered: 04/29/2023 Health Maintenance Due Date Last Done Comments Depression Screening 03/29/2021 03/29/2020 COVID-19 Vaccine (2022-08 4 season) 2023 05/21/2022, 04/03/2021, 09/14/2020, Additional history exists Zoster Vaccines Completed 08/25/2022, 05/07, 11/17/2012 Influenza Vaccine (FLU shot) Completed 05/2023, 04/10/2022, 04/15/2021, Additional history exists documented as of this encounter Medical Devices Implanted Type Area Test Rider Device Identifier Shelf Expiration Date Model / Serial / Lot Valve Heart Trifec Aortic 23mm - [id number] Implanted:Qty : 1 on 05/16/2014 at OR [facility] N/A: Aorta ST JEWEL : CARDIOVASCULAR 07/25/2015 TF-23A / [id number] / Stent Synergy Xd Mr [id number] - [id number] Implanted:Qty : 1 on 04/21/2023 by Christopher Moreno MD at [facility] [employer]inmotion [id number] 10/14/2023 [id number] / / [id number] documented as of this encounter Visit Diagnoses Diagnosis History of transcatheter aortic valve replacement (TAVR)- Primary Stenosis of prosthetic aortic valve, subsequent encounter Nonobstructive atherosclerosis of coronary artery Chronic atrial fibrillation (HCC) Atrial fibrillation HTN, goal below 140/90 Unspecified essential hypertension Dyslipidemia, goal LDL below 70 Other and unspecified hyperlipidemia documented in this encounter Advance Directives Latest [...] and were consensually agreed upon. Care Teams Filbert Grower Relationship Specialty Start Date End Date Nick Edwards MD [address] [place] [address] PCP - General 01/11/04 documented as of this encounter
--- OUTSIDE RECORDS SUMMARY | 2023-08-28 15:12 | External Medical Summary | Summary of Care ---
Author Name Unknown Organization [facility] Address [address] [facility] [place] [address] Phone [phone] Care Team Providers Care Evp General Counsel Name Role Phone Nick Edwards MD Primary Care Provider [phone] Reason for Visit * Reason Comments Outpatient Testing Encounter Details Date Type Department Care Team (Late st Contact Info) Description 04/30/2023 11:30 AM EDT Laboratory Laboratory, [place] [address] [place] [address] [place], Laboratory [address] [place] [address] Stage 3 chronic kidney disease, unspecified whether stage 3a or 3b CKD ([facility]); Type 2 diabetes mellitus with hemoglobin A1c goal of less than 8.0% ([facility]) Allergies Active Allergy Reactions Criticality Noted Date [...] 05/05/2023 10:20 AM EDT Office Visit [facility], [facility] [address] [facility] [place] [address] Regina Alonso MD [address] [facility] [place] [address] 05/21/2023 11:20 AM EST Office Visit [facility] [address] [place] [phone] Nick Edwards MD [address] [place] [address] 06/05/2023 12:30 PM EST Laboratory Laboratory, [facility] [phone] [facility] 132 [place] [address] 06/05/2023 2:00 PM EST Office Visit Cardiology, [facility] [address] Jennifer Morse CRNP 132 [facility] [place] [address] 06/23/2023 11:00 AM EST Office Visit Hepatology, [facility] 132 [facility] [place] [address] Rebekah Anguiano MD [address] [facility] [place] [address] 07/14/2023 10:00 AM EST Office Visit Sleep Disorders Ctr [facility] [address] [place] [phone] Sujey Vega DO [address] [place] [address] 11/03/2023 10:30 AM EDT Office Visit Cardiology, [facility] [address] [facility] [place] [address] Randi Mendoza PA-C [address] [place] [address] 11/05/2023 11:20 AM EDT Office Visit [facility] [address] [place] [phone] Nick Edwards MD [address] [place] [address] Pending Results Name Type Priority Associated Diagnoses Date /Time HEMOGLOBIN A1C Lab Routine Type 2 diabetes mellitus with hemoglobin A1c goal of less than 8.0% ([facility]) 04/30/2023 11:25 AM EDT Health Maintenance Due Date Last Done Comments Depression Screening 03/29/2021 03/29/2020 COVID-19 Vaccine (5 - 2022-2 4 season) 2023 05/21/2022, 04/03/2021, 09/14/2020, Additional history exists Zoster Vaccines Completed 08/25/2022, 05/07, 11/17/2012 Influenza Vaccine (FLU shot) Completed 05/2023, 04/10/2022, 04/15/2021, Additional history exists documented as of this encounter Medical Devices Implanted Type Area Wearing Apparel Shaker Device Identifier Shelf Expiration Date Model / Serial / Lot Valve Heart Trifec Aortic 23mm - [id number] Implanted:Qty : 1 on 05/16/2014 at OR [facility] N/A: Aorta ST JUAN : CARDIOVASCULAR 07/25/2015 TF-23A / [id number] / Stent Synergy Xd Mr [id number] - [id number] Implanted:Qty : 1 on 04/21/2023 by Christopher Moreno MD at [facility] Pets are family too [id number] 10/14/2023 [id number] / / [id number] documented as of this encounter Visit Diagnoses Diagnosis Stage 3 chronic kidney disease, unspecified whether [...] and were consensually agreed upon. Care Teams Evp General Counsel Relationship Specialty Start Date End Date Nick Edwards MD [address] [place] [address] PCP - General 01/11/04 documented as of this encounter
--- OUTSIDE RECORDS SUMMARY | 2023-08-28 15:12 | External Medical Summary ---
Author Name Unknown Address Unknown Organization [id number]:LABORATORY [facility] - [facility] [address] [place] [address] Laboratory Report Ordering Provider Test Date Status AIDA ASHTON 04/30/2023 11:25:08 Final Observation Date Value Abnormality Reference (Units ) Status Albumin 04/30/2023 11:25:08 3.4 Below low normal 3.8-5.0 (g/dL) Final AST (Aspartate aminotransferase) 04/30/2023 11:25:08 25 10-50 (U/L) Final Alk Phos 04/30/2023 11:25:08 230 Above high normal 35-130 (U/L) Final ALT (Alanine aminotransferase) 04/30/2023 11:25:08 16 10-50 (U/L) Final Bilirubin, Total 04/30/2023 11:25:08 0.8 <=1.2 (mg/dL) Final Bilirubin, Direct 04/30/2023 11:25:08 0.4 Above high normal 0.0-0.3 (mg/dL) Final Protein 04/30/2023 11:25:08 6.7 6.0-8.3 (g/dL) Final Performing Location LAB[facility]ORY [facility] - [facility] [address] [place] [address]
--- OUTSIDE RECORDS SUMMARY | 2023-08-28 15:12 | External Medical Summary ---
Author Name Unknown Address Unknown Organization [id number]:[facility] [place] [address] [place] [address] Laboratory Report Ordering Provider Test Date Status JAVY HUFFMAN 05/05/2023 12:36:19 Final Exclude Heart Failure: <300 pg/mL
Diagnose Heart Failure:
Age <50 yr: >450 pg/mL
50-75 yr: >900 pg/mL
>75 yr: >1800 pg/mL
GFR is 30-59 mL/min: >1200 pg/mL or Age- adjusted values
GFR <30 mL/min: do not use, not reliable

Prognostic threshold: 1000 pg/mL Observation Date Value Abnormality Reference (Units ) Status BNP, Pro-hormone 05/05/2023 12:36:19 3226 Above high no rmal <300 (pg/mL) Final Performing Location [facility] [place] [address] [place] [address]
--- OUTSIDE RECORDS SUMMARY | 2023-08-28 15:12 | External Medical Summary | Summary of Care ---
Author Name Unknown Organization [facility] Address [address] [facility] [place] [address] Phone [phone] Care Team Providers Care School Director Name Role Phone Nick Edwards MD Primary Care Provider [phone] Reason for Visit * Reason Onset Date Comments Blood Pressure Readings 05/08/2023 Encounter Details Date Type Department Care Team (Late st Contact Info) Description 05/08/2023 Telephone Nephrology, [facility] [address] [place] [address] Regina Alonso MD [address] [place] [address] Blood Pressure Readings Allergies Active Allergy Reactions [...] encounter Miscellaneous Notes * Telephone Encounter - Kelly Encinas LPN [...] 05/20/2023 2:30 PM EST Office Visit Cardiology, [facility] [address] Oly Brandt PA-C [address] [facility] [place] [address] 05/21/2023 11:20 AM EST Office Visit [facility] [address] [place] [phone] Nick Edwards MD [address] [place] [address] 06/05/2023 1:30 PM EST Laboratory Laboratory, [facility] 132 [facility] [place] [phone] [facility] 132 [facility] [place] [address] 06/05/2023 2:00 PM EST Office Visit Cardiology, [facility] 132 [place] [address] Jennifer Morse CRNP [address] [facility] [place] [address] 06/23/2023 11:00 AM EST Office Visit Hepatology, [facility] [address] [place] [address] Rebekah Anguiano MD [address] [place] [address] 06/30/2023 1:00 PM EST Cardiac Studies Cardiac Studies, [facility] 132 [place] [address] 07/14/2023 10:00 AM EST Office Visit Sleep Disorders Ctr [facility] 132 [place] [phone] Sujey Vega DO [address] [facility] [address] 11/03/2023 10:30 AM EDT Office Visit Cardiology, [facility] 132 [place] [address] Randi Mendoza PA-C [address] [facility] [address] 11/05/2023 11:20 AM EDT Office Visit Family [facility] [address] [place] [phone] Nick Edwards MD [address] [place] [address] 03/14/2024 1:40 PM EDT Office Visit Nephrology, [facility] [address] [place] [address] Regina Alonso MD [address] [place] [address] Health Maintenance Due Date Last Done Comments Depression Screening 03/29/2021 03/29/2020 COVID-19 Vaccine (2022-2 4 season) 2023 05/21/2022, 04/03/2021, 09/14/2020, Additional history exists Zoster Vaccines Completed 08/25/2022, 05/07, 11/17/2012 Influenza Vaccine (FLU shot) Completed 05/2023, 04/10/2022, 04/15/2021, Additional history exists documented as of this encounter Medical Devices Implanted Type Area C D Stripper Device Identifier Shelf Expiration Date Model / Serial / Lot Valve Heart Trifec Aortic 23mm - [id number] Implanted:Q[place] : 1 [place] 05[place]16/2014 [place] [facility] N/A: Aorta ST JUAN : CARDIOVASCULAR 07/25/2015 TF-23A / [id number] / Stent Synergy Xd Mr [id number] - [id number] Implanted:Qty : 1 on 04/21/2023 by Christopher Moreno MD [place] [facility] [employer] [id number] 10/14/2023 [id number] / / [id number] documented as of this encounter Advance Directives [...] and were consensually agreed upon. Care Teams School Director Relationship Specialty Start Date End Date Nick Edwards MD [address] [facility] [address] PCP - General 01/11/04 documented as of this encounter
--- OUTSIDE RECORDS SUMMARY | 2023-08-28 15:12 | External Medical Summary | Summary of Care ---
Author Name Unknown Organization [facility] Address [address] [facility] [place] [address] Phone [phone] Care Team Providers Care Building Maintenance Technician Name Role Phone Nick Edwards MD Primary Care Provider [phone] Reason for Visit * Reason Onset Date Comments Test Results 05/06/2023 Encounter Details Date Type Department Care Team (Late st Contact Info) Description 05/06/2023 Telephone Nephrology, [facility] [address] [place] [address] Regina Alonso MD [address] [place] [address] Test Results Allergies Active Allergy Reactions Criticality [...] with pt regarding lab and CXR results. 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 Please schedule this pt with Dr Alonso at [facility]. * Telephone Encounter - Giuliana Skaggs RN [...] 05/20/2023 2:30 PM EST Office Visit Cardiology, [facility] [address] [place] [address] Oly Brandt PA-C [address] [place] [address] 05/21/2023 11:20 AM EST Office Visit [facility] [address] [place] [address] Nick Edwards MD [address] [place] [address] 06/05/2023 1:30 PM EST Laboratory Laboratory, [address] [place] [phone] [facility] [address] [place] [address] 06/05/2023 2:00 PM EST Office Visit Cardiology, [facility] [address] [place] [address] Jennifer Morse CRNP [address] [place] [address] 06/23/2023 11:00 AM EST Office Visit Hepatology, [facility] [address] [place] [address] Rebekah Anguiano MD [address] [place] [address] [place] [address] 06/30/2023 1:00 PM EST Cardiac Studies Cardiac Studies, [address] [place] [address] 07/14/2023 10:00 AM EST Office Visit [facility] [address] [place] [address] Sujey Vega, [address] [place] [address] 11/03/2023 10:30 AM EDT Office Visit Cardiology, [facility] [address] [facility] [place] [address] Randi Mendoza PA-C [address] [place] [address] 11/05/2023 11:20 AM EDT Office Visit [facility] [address] [place] [address] Nick Edwards MD [address] [place] [address] 03/14/2024 1:40 PM EDT Office Visit Nephrology, [facility] [address] [place] [address] Regina Alonso MD [address] [place] [address] Health Maintenance Due Date Last Done Comments Depression Screening 03/29/2021 03/29/2020 COVID-19 Vaccine (2022-2 4 season) 2023 05/21/2022, 04/03/2021, 09/14/2020, Additional history exists Zoster Vaccines Completed 08/25/2022, 05/07, 11/17/2012 Influenza Vaccine (FLU shot) Completed 05/2023, 04/10/2022, 04/15/2021, Additional history exists documented as of this encounter Medical Devices Implanted Type [employer] Device Identifier Shelf Expiration Date Model / Serial / Lot Valve Heart Trifec Aortic 23mm - [id number] [place]ed:Q[place] : 1 [place] [facility] [place]: Aorta [facility] : CARDIOVASCULAR 07/25/2015 TF-23A / [id number] / Stent Synergy Xd Mr [id number] - [id number] Implanted:Qty : 1 on 04/21/2023 by Christopher Moreno MD at [place] [facility] [place] [employer] [id number] 10/14/2023 [id number] / / [id number] documented as of this encounter Advance Directives [...] and were consensually agreed upon. Care Teams Building Maintenance Technician Relationship Specialty Start Date End Date Nick Edwards MD [address] [place] [address] PCP - General 01/11/04 documented as of this encounter
--- OUTSIDE RECORDS SUMMARY | 2023-08-28 15:12 | External Medical Summary | Summary of Care ---
Author Name Unknown Organization [facility] Address [address] [facility] [place] [address] Phone [phone] Care Team Providers Care Piccoloist Name Role Phone Nick Edwards MD Primary Care Provider [phone] Reason for Visit * Reason Comments Outpatient Testing Encounter Details Date Type Department Care Team (Late st Contact Info) Description 05/05/2023 12:40 PM EDT Laboratory Laboratory [facility] [place] [address] [place] [address] [place], [facility] [address] [place] [address] Arrived Allergies Active Allergy Reactions Criticality Noted Date Comments Felodipine 11/17/2000 plendil Empagliflozin Diarrhea High 06/03/2022 documented as of this encounter (statuses as of 05/05/2023) Medications Medication Sig Dispensed Refills Start Date [...] route every night at bedtime. 0 Active Furosemide 40 MG Oral Tablet (Lasix)Indications :Heart failure (HCC),Stage 3 chronic kidney disease, unspecified whether stage 3a or 3b CKD (HCC) TAKE 1.5 TABLET BY MOUTH EVERY DAY IN THE MORNING 90 Tablet 3 05/05/2023 Active Lisinopril 10 MG Oral Tablet (Prinivil) Take 1 Tablet by mouth in the morning. 30 Tablet 5 05/05/2023 Active documented as of this encounter (statuses as of 05/05/2023) Active Problems Problem Noted Date Diagnosed Date [...] as of this encounter (statuses as of 05/05/2023) Resolved Problems Problem Noted Date Diagnosed Date [...] as of this encounter (statuses as of 05/05/2023) Immunizations Name Administration Dates Next Due COVID-19 [...] Care Team (Late st Contact Info) Description 05/21/2023 11:20 AM EST Office Visit [facility] [address] [place] [address] Nick Edwards MD [address] [place] [address] 06/05/2023 1:30 PM EST Laboratory Laboratory, [address] [place] [address] [facility] [address] [place] [address] 06/05/2023 2:00 PM EST Office Visit Cardiology, [address] [place] [address] Jennifer Morse CRNP 132 [place] [address] 06/23/2023 11:00 AM EST Office Visit Hepatology, [facility] [address] [place] [address] Rebekah Anguiano MD [address] [place] [id number] 06/30/2023 1:00 PM EST Cardiac Studies Cardiac Studies, [address] [place] [address] 07/14/2023 10:00 AM EST Office Visit [facility] [address] [place] [address] Sujey Vega, [address] [place] [address] 11/03/2023 10:30 AM EDT Office Visit Cardiology, [facility] [address] [facility] [place] [address] Randi Mendoza PA-C [address] [place] [address] 11/05/2023 11:20 AM EDT Office Visit [facility] [address] [place] [address] Nick Edwards MD [address] [place] [address] 03/14/2024 1:40 PM EDT Office Visit Nephrology, [facility] [address] [facility] [place] [address] Regina Alonso MD [address] [facility] [place] [address] Health Maintenance Due Date Last Done Comments Depression Screening 03/29/2021 03/29/2020 COVID-19 Vaccine (2022-2 4 season) 2023 05/21/2022, 04/03/2021, 09/14/2020, Additional history exists Zoster Vaccines Completed 08/25/2022, 05/07, 11/17/2012 Influenza Vaccine (FLU shot) Completed 05/2023, 04/10/2022, 04/15/2021, Additional history exists documented as of this encounter Medical Devices Implanted Type Area Computer Builder Device Identifier Shelf Expiration Date Model / Serial / Lot Valve Heart Trifec Aortic 23mm - [id number] [place]planted:[place] : 1 [place] 05/16/[place] [facility] [place]/A: Aorta [employer] : CARDIOVASCULAR 07/25/2015 TF-23A / [id number] / Stent Synergy Xd Mr [id number] - [id number] Implanted:Qty : 1 on 04/21/2023 by Christopher Moreno MD at [place] [facility] [place] [employer] [id number] 10/14/2023 [id number] / / [id number] documented as of this encounter Advance Directives [...] and were consensually agreed upon. Care Teams Piccoloist Relationship Specialty Start Date End Date Nick Edwards MD [address] [place] [address] PCP - General 01/11/04 documented as of this encounter
--- OUTSIDE RECORDS SUMMARY | 2023-08-28 15:12 | External Medical Summary ---
Author Name Unknown Address Unknown Organization K01:[facility] [place] [facility] [address] [facility] [address] [facility] [address] [facility] [address] Laboratory Report Ordering Provider Test Date Status AIDA ASHTON 04/30/2023 11:25:08 Final Observation Date Value Abnormality Reference (Units ) Status BUN 04/30/2023 11:25:08 42 Above high normal 6-20 (mg/dL) Final Creatinine 04/30/2023 11:25:08 1.9 Above high normal 0.6-1.2 (mg/dL) Final Glomerular filtration rate/1.73 sq M.predicted [Volume Rate/Area] in Serum, Plasma or Blood by Creatinine-based formula (CKD-EPI) 04/30/2023 11:25:08 34 Below low normal >=60 (mL/min) Final eGFR is calculated based on the CKD-EPI 2020 equation SODIUM 04/30/2023 11:25:08 142 135-146 (m mol/L) Final Potassium 04/30/2023 11:25:08 4.0 3.5-5.1 (m mol/L) Final Cl 04/30/2023 11:25:08 102 98-107 (mm ol/L) Final CO2 04/30/2023 11:25:08 31 22-32 (mmo l/L) Final Anion gap 04/30/2023 11:25:08 9 7-15 (mmol /L) Final Glucose 04/30/2023 11:25:08 116 70-120 (mg /dL) Final Calcium 04/30/2023 11:25:08 8.5 8.4-10.2 ( mg/dL) Final Performing Location [facility] [place] [address] [place] [address]
--- OUTSIDE RECORDS SUMMARY | 2023-08-28 15:12 | External Medical Summary | Summary of Care ---
Author Name Unknown Organization [facility] Address [address] [place] [address] Phone [phone] Care Team Providers Care Daycare Teacher Name Role Phone Raheem Edwards MD Primary Care Provider [phone] Reason for Referral * Evaluate & Treat - Unlimited Visits (Within 3 days (urgent)) - Pending Review Specialty Diagnoses / Procedures Referred By Contheena t Referred To Contact Pharmacist / Pharmacy Diagnoses Stage 2 hypertension Nathanael Palafox MD [address] [place] [address] Referral ID Status Reason Start Date Expiration Date Visits Requested Visits Authorized [id number] Pending Review Specialty Services Required 3 99 99 Question Answer Referral Priority Within 3 days (urgent) Where should this appointment be scheduled? [facility] Department: Specialist Specialty: Nephro Reason for Referral: HTN Goal BP: < 130/80 Comments Pharmacist Medication Therapy Management: Minimum frequency patient should be seen in person for medication management: as appropriate per clinical condition and patient status By my signature, I understand that my patient Gregorio Davidson will have his medication therapy managed by the [facility] Medication Therapy Disease Management Clinic ([facility]) per established policies, procedures, and protocols. I also certify that this referral may serve as an initiation of service for the management of drug therapy in the above noted patient. [facility] providers will be responsible for scheduling patient visits, obtaining appropriate laboratory studies, and adjusting medication management therapy per patient's need, in addition to those roles spelled out in the clinic policy, procedures, and drug management protocols. I understand that the service provided by the [facility] Clinic is voluntary and have informed patient that they can refuse the service at their discretion. I am aware that the [facility] Clinic will provide me with a copy of the patient encounter via my [employer] [email or web address]. I authorize the [facility] Clinic to carry out these activities on my behalf. I consider this program to be a necessary part of the patient's medical care. Nathanael Palafox MD Reason for Visit * Reason Comments Chronic Kidney Disease (CKD) Encounter Details Date Type Department Care Team (Late st Contact Info) Description 05/05/2023 10:20 AM EDT Office Visit Nephrology, David Rangel [address] [place] [address] Nathanael Palafox MD [address] [place] [address] Stage 2 hypertension*; S/P AVR; Stage 3b chronic kidney disease (HCC); Acute diastolic heart failure (HCC); White coat syndrome with diagnosis of hypertension [...] 0 Active Furosemide 40 MG Oral Tablet (Lasix)Indication s:Acute diastolic heart failure (HCC) TAKE 1.5 TABLET BY MOUTH EVERY DAY IN THE MORNING 90 Tablet 3 05/05/2023 Active Lisinopril 10 MG Oral Tablet (Prinivil) Take 1 Tablet by mouth in the morning. 30 Tablet 5 05/05/2023 Active Furosemide 40 MG Oral Tablet (Lasix)Indication s:Heart failure (HCC),Stage 3 chronic kidney disease, unspecified whether stage 3a or 3b CKD (HCC) TAKE 1 TABLET BY MOUTH EVERY DAY IN THE MORNING 90 Tablet 3 01/26/2023 3 Discontinue d(Refill) documented as of this [...] mRNA, LNP-s, No Pre serve, 2-Dose Series ([employer]) 04/03/2021,09/14/2020,08/17/2020 Influenza, Whole Virus 05/03/2018,07/24/2006 Pneumococcal Conjugate [...] Sign Reading Time Taken Comments Blood Pressure 175/77 05/05/2023 11:00 AM EDT Pulse 61 05/05/2023 11:00 AM EDT Temperature 36.5 C (97.7 F) 05/05/2023 1 0:49 AM EDT Respiratory Rate - - Oxygen Saturation - - Inhaled Oxygen Concentration - - Weight 93.3 kg (205 lb 11.2 oz) 023 10:49 AM EDT Height - - Body Mass Index 28.69 04/30/2023 10:28 AM EDT documented in this [...] this encounter Patient Instructions * Patient Instructions* Nathanael Palafox MD - 05/05/2023 11:31 AM EDT -go to ER immediately if any shortness of breath, chest pain, n/v, other concerning symptoms -will arrange 24 hr blood pressure study for you -increase lasix to 60 mg daily from 40 mg daily -start lisinopril 10 mg daily -no change to other medications -check chest X ray and labs today -also labs after 7-10 days on new meds -will get [facility] pharmacist to follow you for blood pressure> they will call you -pls do a 3 day home BP log >> check 2X in AM and 2X in PM one minute apart over 3 days and call or mail to me or bring to pharmacist or to Dr Edwards's office and ask to have it sent to me -call [phone] and ask for my nurse to get a message to me documented in this encounter Progress Notes * Nathanael Palafox MD - 05/05/2023 11:02 AM EDT NEPHROLOGY CLINIC NOTE Nephrology, David Rangel [address] [place] [address] 05/05/2023, 11:02 AM Patient Name: Gregorio Davidson BACKGROUND: 82 year old male presents for follow-up of CKD 3B w/ 100 mg albuminuria from age, htn and status post April 21 TAVR. Medical history includes hypertension, status post bioprosthetic aortic valve replacement and TAVR 04/2023, obstructive sleep apnea on CPAP, diabetes since about 2005 on oral medications, [place] cirrhosis, gout, bladder diverticulum. Had 2 spontaneous pneumothoraces in fall 2019 >> referred to [facility]; no clear cause found though c/b Chest tube infection. For prn CT surgery f/u; also had CONCEPCION [...] May, surgery in gained it back. 05/2022 [facility] admission acute renal failure and hyperkalemia with [...] to follow w/ [facility] cardiology, hepatology. TODAY 05/05/2023: [place] [facility] SBP 170s hospital d/c and today on clinic; controlled atPCP on 04/30 w/ near resolution LE edema. No med changes at hospital d/c. Blood pressure was controlled at cardiology and PCP visits last week. Since surgery breathing better and swelling down. Planning to go out of time today Not checking bp at home; had been hospitalized 2-3 times over summer he tells me. SBP today in clinic 170-180s, asx. REVIEW OF SYSTEMS: No F/C, unintended wt loss 12 lb since start of month w/ less edema, energy level better and appetite acceptable No acute visual changes or KYLE No sinus, dental, throat pain No neck lumps/bumps or stiffness No palpitations, angina, orthopnea, edema improved after procedure No cough, wheeze, or dyspnea; exertional dyspnea improved No N/V/D/C/abd pain No dysuria, hematuria, nocturia >2X; no new/worrisome voiding sx; normally no nocturia if < 6h No rash or generalized itch No focal joint/muscle aches; much less frequent knee/ toe pain/cramps No inappropriate bleeding or bruising No tremor, [...] by Device route every night at bedtime. Furosemide 40 MG Oral Tablet (Lasix) TAKE 1.5 TABLET BY MOUTH EVERY DAY IN THE MORNING 90 Tablet 3 Lisinopril 10 MG Oral Tablet (Prinivil) Take 1 Tablet by mouth in the morning. 30 Tablet 5 No current facility-administered medications for this visit. Review of patient's allergies indicates: Allergen Reactions Jardiance [Empagliflozin] Diarrhea Felodipine plendil PHYSICAL EXAMINATION: BP Readings from Last 6 Encounters: 05/05/23 175/77 04/30/23 120/84 04/29/23 114/68 04/22/23 119/61 04/09/23 157/42 04/06/23 112/56 Wt Readings from Last 6 Encounters: 05/05/23 93.3 kg (205 lb 11.2 oz) 04/30/23 94.3 kg (207 lb 12.8 oz) 04/29/23 93.9 kg (207 lb 1.6 oz) 04/21/23 98.4 kg (217 lb) 04/09/23 98.4 kg (217 lb) 04/06/23 98.5 kg (217 lb 3.2 oz) Pulse Readings from Last 6 Encounters: 05/05/23 61 04/30/23 100 04/29/23 64 04/22/23 73 04/09/23 77 04/06/23 76 175/77 169/71 178/73 BP Site: Right Arm Right Arm Right Arm BP Position: Sitting Sitting Sitting BP Cuff Size: Regular Regular Regular Pulse: 61 57 66 NAD, oriented x 3, ambulatory w/o asst Normocephalic, atraumatic, eomi nonicteric sclerae MMM Supple neck Irregularly irregular at about 60 bpm, SM; w/o g/r; 2+ L ankle, trace R ankle edema Bibasilar crackles; no respiratory distress or cough NT abd, +BS, soft, + fluid wave No cyanosis or clubbing No rash No tremor, focal or global weakness; fluent speech, good historian LABS: Recent Labs Units 04/30/23 1125 04/22/23 0547 04/21/23 1305 04/21/23 0926 04/21/23 0704 SODIUM - [facility] mmol/L 142 139 141 -- 140 POTASSIUM - [facility] mmol/L 4.0 4.8 4.0 -- 4.3 POTASSIUM POCT - [facility] mmol/L -- -- -- 3.7 -- CHLORIDE - [facility] mmol/L 102 105 104 -- 104 CO2 - [facility] mmol/L 31 23 28 -- 27 BUN - [facility] mg/dL 42* 44* 45* -- 48* CREATININE - [facility] mg/dL 1.9* 2.1* 2.0* -- 2.1* ESTIMATED GLOMERULAR FILTRATION RATE - [facility] mL/min 34* 30* 32* -- 30* Latest Ref Rng 09/09/2022 10/17/2022 11/13/2022 11/28/2022 12/19/2022 03/13/2023 NEPH-FLOW Cr 0.6 - 1.2 mg/dL 1.7 (H) 1.7 (H) 2.2 (H) 1.9 (H) 1.8 (H) eGFR >=60 mL/min 39 (L) 39 (L) 29 (L) 35 (L) 36 (L) Recent Labs Units 04/30/23 1125 04/22/23 0547 04/21/23 1305 04/21/23 0704 HGB - [facility] g/dL 9.8* 9.1* 10.8* 10.1* FERRITIN - [facility] ng/mL -- -- 96 -- TRANSFERRIN SATURATION PERCENT - [facility] % -- -- 33 -- Recent Labs Units 04/30/23 1125 04/22/23 0547 04/21/23 1305 04/21/23 0704 04/06/23 1134 03/13/23 1024 11/13/22 1211 10/17/22 1224 05/12/22 1415 04/10/22 1528 CALCIUM - [facility] mg/dL 8.5 8.1* 8.4 8.4 < > 8.7 < > 8.6 < [...] % 6.0* 6.2* 6.1* Recent Labs Units 10/17/22 1406 08/08/21 1132 ALBUMIN / CREATININE RATIO, URINE - [facility] mg/g Creat 160* 74* Recent Labs Units 10/17/22 1406 08/08/21 1132 CLARITY, URINE - [facility] Clear Clear GLUCOSE, URINE - [facility] mg/dL Negative >=1000* BILIRUBIN, URINE - [facility] Negative Negative KETONE, URINE - [facility] mg/dL Negative Negative SPECIFIC GRAVITY, URINE - [facility] 1.020 1.015 BLOOD, URINE - [facility] Negative Negative PH, URINE - [facility] Units 6.0 6.0 PROTEIN, URINE - [facility] mg/dL 30* Trace* UROBILINOGEN, URINE - [facility] mg/dL Normal Normal NITRITE, URINE - [facility] Negative Negative ESTERASE, URINE - [facility] Negative Negative BACTERIA, URINE - [facility] /HPF 26-50* 0-25 WBC, URINE - [facility] /HPF 3-5* 0-2 RBC, URINE - [facility] /HPF 0-2 0-2 ASSESSMENT AND PLAN: Stage 2 hypertension (Primary) - PHARMACIST MEDS THERAPY MGMT REFERRAL OP - XR CHEST 2 VIEWS - BNP, NT-PRO - BASIC METABOLIC PANEL S/P AVR Stage 3b chronic kidney disease (HCC) Heart failure (HCC) - XR CHEST 2 VIEWS - Furosemide 40 MG Oral Tablet (Lasix); TAKE 1.5 TABLET BY MOUTH EVERY DAY IN THE MORNING - BNP, NT-PRO - BASIC METABOLIC PANEL Stage 3 chronic kidney disease, unspecified whether stage 3a or 3b CKD (HCC) - Furosemide 40 MG Oral Tablet (Lasix); TAKE 1.5 TABLET BY MOUTH EVERY DAY IN THE MORNING Other orders - Lisinopril 10 MG Oral Tablet (Prinivil); Take 1 Tablet by mouth in the morning. Follow Up: Return in about 2 months (around 07/05/2023) for clinic visit w/ MD. | For: clinic visitw/ MD | Check-out note: -check XR -to lab -needs cardiology visit w/in one week -MD only Patient with asymptomatic but uncontrolled hypertension today with systolics running about 180 mmHg. While his fluid status is overall improved by history and on exam, he does have edema, bibasilar crackles, ascites in the setting of uncontrolled blood pressure and with recent percutaneous valve surgery -I advised ER evaluation. The patient however feels good and while he will go if he starts to feel worse in any way he is not willing to go today >> while I suspect this is all stage II hypertension, need to rule out acutely decompensated heart failure with preserved ejection fraction: Chest x-ray and labs with increase in Lasix as below -urgent MTM referral to assist with blood pressure control and follow-up on self measured blood pressures -follow-up labs in 7-10 days and close in f/u in this clinic -will contact Cardiology and arrange close in follow-up with them as well; cardiology and PCP updated by T Text Notes reviewed for this visit -d[place] [facility] [place] -PCP and cardiology notes 04/2023 -hepatology 11/2022 Patient Instructions -go to ER immediately if any shortness of breath, chest pain, n/v, other concerning symptoms -will arrange 24 hr blood pressure study for you -increase lasix to 60 mg daily from 40 mg daily -start lisinopril 10 mg daily -no change to other medications -check chest X ray and labs today -also labs after 7-10 days on new meds -will get [facility] pharmacist to follow you for blood pressure> they will call you -pls do a 3 day home BP log >> check 2X in AM and 2X in PM one minute apart over 3 days and call or mail to me or bring to pharmacist or to Dr Edwards's office and ask to have it sent to me -call [phone] and ask for my nurse to get a message to me I spent a total of 40-54 minutes (exact time 45 mins) on the date of service in preparation, delivery, and documentation of the care provided to Gregorio Davidson excluding any time spent in the performance of separately billed services. Nathanael Palafox MD Nephrology, [facility] [address] [facility] [address] CC: Ref: NATHANAEL PALAFOX[[id number]] [address] [place] [address] (office) [phone] (fax) PCP: RAHEEM EDWARDS [address] [place] [address] [phone] This chart was completed in part utilizing [employer] Voice Recognition Software. Randomword insertions, pronoun errors, and incomplete sentences are an occasional consequence of this system due to software limitations, and ambient noise. Any questions or concerns about the content, text, or information contained within the body of this dictation should be directly addressed to the provider for clarification. documented in this encounter Nursing Notes * Kelly Encinas LPN - 05/05/2023 10:48 AM EDT Return patient- pt had heart surgery in [place] 04/21/23. Pt has swelling in legs on occasion. He stated this has improved with his heart surgery. documented in this encounter Plan of Treatment Upcoming Encounters Date Type Department Care Team (Late st Contact Info) Description 05/21/2023 11:20 AM EST Office Visit [facility] [address] [place] [address] Raheem Edwards MD [address] [place] [address] 06/05/2023 1:30 PM EST Laboratory Laboratory, [address] [place] [phone] [facility] [address] 06/05/2023 2:00 PM EST Office Visit Cardiology, [facility] [place] [address] Jennifer Morse CRNP [facility] [address] 06/23/2023 11:00 AM EST Office Visit Hepatology, [facility] 132 [facility] [place] [address] Rebekah Anguiano MD [address] [place] [address] 06/30/2023 1:00 PM EST Cardiac Studies Cardiac Studies, [address] [place] [address] 07/14/2023 10:00 AM EST Office Visit [facility] Disorders [facility] 132 [facility] [place] [phone] Sujey Vega, [address] [place] [address] 11/03/2023 10:30 AM EDT Office Visit Cardiology, [facility] [address] [place], [place] [address] Randi Mendoza, MICHELLE [address] [place] [address] 11/05/2023 11:20 AM EDT Office Visit [facility] [address] [place] [phone] Raheem Edwards MD [address] [place] [address] 03/14/2024 1:40 PM EDT Office Visit Nephrology, [facility] 200 [place] [address] Nathanael Palafox MD [address] [place] [address] Pending Results Name Type Priority Associated Diagnoses Date /Time XR CHEST 2 VIEWS Medical Imaging Routine Stage 2 hypertension Acute diastolic heart failure (HCC) 05/05/2023 12:28 PM EDT BNP, NT-PRO Lab Routine Stage 2 hypertension Acute diastolic heart failure (HCC) 05/05/2023 12:36 PM EDT BASIC METABOLIC PANEL Lab Routine Stage 2 hypertension Acute diastolic heart failure (HCC) 05/05/2023 12:36 PM EDT Scheduled Orders Name Type Priority Associated Diagnoses Orde r Schedule BASIC METABOLIC PANEL Lab Routine Stage 2 hypertension Stage 3b chronic kidney disease (HCC) Expected: 05/06/2023 (Approximate), Expires: 05/05/2024 Scheduled Referrals Name Type Priority Associated Diagnoses Orde r Schedule PHARMACIST MEDS THERAPY MGMT REFERRAL OP Referral Within 3 days (urgent) Stage 2 hypertension Ordered: 05/05/2023 Health Maintenance Due Date Last Done Comments Depression Screening 03/29/2021 03/29/2020 COVID-19 Vaccine (2022-2 4 season) 2023 05/21/2022, 04/03/2021, 09/14/2020, Additional history exists Zoster Vaccines Completed 08/25/2022, 05/07, 11/17/2012 Influenza Vaccine (FLU shot) Completed 05/2023, 04/10/2022, 04/15/2021, Additional history exists documented as of this encounter Medical Devices Implanted Type Area Shingle Inspector Device Identifier Shelf Expiration Date Model / Serial / Lot Valve Heart Trifec Aortic 23mm - [id number] Implanted:Qty : 1 on 05/16/2014 [place] [facility] N/A: Aorta [employer] J[employer] : CARDIOVASCULAR 07/25/2015 TF-23A / [id number] / Stent Synergy Xd Mr [id number] - [id number] Implanted:Qty : 1 on 04/21/2023 by Christopher Moreno MD at [facility] Tagent [id number] 10/14/2023 [id number] / / [id number] documented as of this encounter Visit Diagnoses Diagnosis Stage 2 hypertension- Primary S/P AVR Heart valve replaced by other means Stage 3b chronic kidney disease (HCC) Acute diastolic heart failure (HCC) Acute diastolic heart failure White coat syndrome with diagnosis of hypertension [...] and were consensually agreed upon. Care Teams Daycare Teacher Relationship Specialty Start Date End Date Raheem Edwards MD [address] [place] [address] PCP - General 01/11/04 documented as of this encounter"
--- OUTSIDE RECORDS SUMMARY | 2023-08-28 15:12 | External Medical Summary | Summary of Care ---
Author Name Unknown Organization [facility] Address [address] [facility] [place] [address] Phone [phone] Care Team Providers Care Manager Motor Name Role Phone Nick Edwards MD Primary Care Provider [phone] Reason for Visit * Reason Onset Date Comments Referral 05/05/2023 Cardiology Encounter Details Date Type Department Care Team (Late st Contact Info) Description 05/05/2023 Telephone Nephrology, David [place] [address] [place] [address] Regina Alonso MD [address] [place] [address] Referral (Cardiology) Allergies Active Allergy Reactions Criticality Noted Date [...] encounter Miscellaneous Notes * Telephone Encounter - Jazzy Martínez - 05/05/2023 2:03 PM EDT Looks like pt is already scheduled for 05/20 per Jennifer * Telephone Encounter - Jennifer Morse CRNP - 05/05/2023 1:01 PM EDT Please schedule patient for 05/11 at 11:30 am-- full 60 min please. Or if any AP has a sooner appt that is also an option (known to Dr. Calero and Nick). This should belabled an acute appt and given 60 min for an AP. 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 Please advise documented in this encounter Plan of Treatment Upcoming Encounters Date Type Department Care Team (Late st Contact Info) Description 05/20/2023 2:30 PM EST Office Visit Cardiology, [facility] 132 [facility] [place] [address] Oly Brandt PA-C [address] [place] [address] [place] [phone] 05/21/2023 11:20 AM EST Office Visit [address] [place] [address] Nick Edwards MD [address] [place] [address] 06/05/2023 1:30 PM EST Laboratory Laboratory, [facility] 132 [place] [address] [facility] [address] [place] [address] 06/05/2023 2:00 PM EST Office Visit Cardiology, [facility] 132 [facility] [place] [address] Jennifer Morse CRNP [address] [place] [address] 06/23/2023 11:00 AM EST Office Visit Hepatology, [facility] [address] [place] [address] Rebekah Anguiano MD [address] [place] [address] 06/30/2023 1:00 PM EST Cardiac Studies Cardiac Studies, [facility] [address] [place] [address] 07/14/2023 10:00 AM EST Office Visit Sleep Disorders [facility] 132 [place] [address] Sujey Vega DO [address] [place] [address] 11/03/2023 10:30 AM EDT Office Visit Cardiology, [facility] [address] [place] [address] Randi Mendoza, PACaitlynC [address] [place] [address] 11/05/2023 11:20 AM EDT Office Visit [facility] [address] [facility] [phone] Nick Edwards MD [address] [facility], [place] [address] 03/14/2024 1:40 PM EDT Office Visit Nephrology, [place] [address] [facility] [place] [address] Regina Alonso MD [address] [facility] [address] Health Maintenance Due Date Last Done Comments Depression Screening 03/29/2021 03/29/2020 COVID-19 Vaccine (2022- 4 season) 2023 05/21/2022, 04/03/2021, 09/14/2020, Additional history exists Zoster Vaccines Completed 08/25/2022, 05/07, 11/17/2012 Influenza Vaccine (FLU shot) Completed 05/2023, 04/10/2022, 04/15/2021, Additional history exists documented as of this encounter Medical Devices Implanted Type Area Bioinformatics Analyst Device Identifier Shelf Expiration Date Model / Serial / Lot Valve Heart Trifec Aortic 23mm - [id number] Implanted:Qty : 1 on 05/16/2014 at [place] [facility] N/A: Aorta [employer] JUAN : CARDIOVASCULAR 07/25/2015 TF-23A / [id number] / Stent Synergy Xd Mr [id number] - [id number] Implanted:Qty : 1 on 04/21/2023 by Christopher Moreno MD at CARDIAC LABS [facility] mytrax [id number] 10/14/2023 [id number] / / [id number] documented as of this encounter Advance Directives [...] were consensually agreed upon. Care Teams Manager Motor Relationship Specialty Start Date End Date Nick Edwards MD [address] [place] [address] PCP - General 01/11/04 documented as of this encounter
--- OUTSIDE RECORDS SUMMARY | 2023-08-28 15:12 | External Medical Summary ---
Author Name Unknown Address Unknown Organization K01:[facility] [place] [address] [facility] [address] [facility] [address] Laboratory Report Ordering Provider Test Date Status AIDA ASHTON 04/30/2023 11:25:08 Final Observation Date Value Abnormality Reference (Units ) Status WBC, Total 04/30/2023 11:25:08 6.02 4.00-10.80 (K/uL) Final RBC 04/30/2023 11:25:08 3.09 4.50-5.25 (M/uL) Final Hemoglobin 04/30/2023 11:25:08 9.8 Below low normal 14.0-16.8 (g/dL) Final HCT 04/30/2023 11:25:08 30.9 Below low normal 40.0-48.4 (%) Final MCV 04/30/2023 11:25:08 100.0 82.0-99.5 (fL) Final MCH 04/30/2023 11:25:08 31.7 27.0-34.0 (pg) Final MCHC 04/30/2023 11:25:08 31.7 32.0-36.0 (g/dL) Final RDW 04/30/2023 11:25:08 14.7 11.5-15.5 (%) Final Platelets 04/30/2023 11:25:08 119 Below low normal 140-400 (K/uL) Final MPV 04/30/2023 11:25:08 10.4 6.6-11.1 (fL) Final Nucleated erythrocytes/100 leukocytes [Ratio] in Blood by Automated count 04/30/2023 11:25:08 0 <=0 (/100 WBCs) Final Performing Location LAB[facility]ORY [facility] - [address] [place] [address]
--- OUTSIDE RECORDS SUMMARY | 2023-08-28 15:12 | External Medical Summary ---
Author Name Unknown Address Unknown Organization K01:[facility] [place] - [address] [place] [address] Laboratory Report Ordering Provider Test Date Status AIDA ASHTON 04/30/2023 11:25:08 Final Observation Date Value Abnormality Reference (Units ) Status Lactic Acid 04/30/2023 11:25:08 1.2 0.4-2.0 (mmol/L) Final Performing Location [facility] - [address] [place] [address]
--- OUTSIDE RECORDS SUMMARY | 2023-08-28 15:13 | External Medical Summary | Summary of Care ---
Author Name Unknown Organization [facility] Address [address] [address] Phone [phone] Care Team Providers Care Zyglo Technician Name Role Phone Nick Edwards MD Primary Care Provider [phone] Reason for Visit * Reason Onset Date Comments Hospital Follow-Up 04/24/2023 GERRY Encounter Details Date Type Department Care Team Description 04/24/[address] [address] Robyn Calzada RN Hospital Follow-Up (EGRRY) Allergies Active Allergy Reactions Severity Noted Date Comments Felodipine 11/17/2000 plendil Empagliflozin Diarrhea High 06/03/2022 documented as of this encounter (statuses as of 04/24/2023) Medications Medication Sig Dispensed Refills Start Date [...] as of this encounter (statuses as of 04/24/2023) Active Problems Problem Noted Date S/P TAVR (transcatheter aortic valve rep lacement) 04/21/2023 Chronic atrial fibrillation 04/06/2023 Other cirrhosis of liver 11/13/2022 Type 2 diabetes mellitus with hemoglobin A1c goal of less than 8.0% 11/02/2022 Type 2 diabetes mellitus with hemoglobin A1c goal of less than 8.0% 11/02/2022 Prediabetes 10/02/2022 Pulmonary hypertension 11/05/2020 Heart failure 04/13/2020 Hypertensive kidney disease with stage 3 chronic kidney disease 11/01/2018 CKD (chronic kidney disease) stage 3, GF R 30-59 ml/min 07/10/2015 HTN, goal below 140/90 09/04/2014 S/P AVR 05/16/2014 Nonrheumatic aortic valve stenosis 10/12 Vitamin D deficiency 05/02/2011 Steatohepatitis, non-alcoholic 0 Dyslipidemia, goal LDL below 100 009 Overview: Per Lipid Taxonomy. ADVANCE DIRECTIVE INFORMATION 12/06/2004 Overview: No, Advance Directive brochure given to patient. documented as of this encounter (statuses as of 04/24/2023) Resolved Problems Problem Noted Date Resolved Date Gouty arthropathy 04/22/2016 05/10/2018 Type 2 diabetes mellitus wit h hemoglobin A1c goal of less than 8.0% 08/02/2014 11/10/2018 Overview: ICD-10 update of inactive term HTN, goal below 140/80 02/23/2012 5 Overview: Per HTN Protocol #27. 04/1994 Severe obesity with body mas s index (BMI) of 35.0 to 39.9 with serious comorbidity 10/01/2009 12/24/2016 Overview: Per Obesity Taxonomy ICD-10 update of inactive diagnosis HTN, GOAL BELOW 130/80 08/01/2009 2 Overview: Per HTN Taxonomy. 04/1994 Type 2 diabetes mellitus wit h hemoglobin A1c goal of less than 7.0% 05/03/2009 08/02/2014 Overview: Per Diabetes Taxonomy. ICD-10 update of inactive term Type 2 diabetes mellitus wit h stage 3 chronic kidney disease, without long-term current use of insulin 05/03/2009 02/0 09/2021 Overview: Per Diabetes Taxonomy. DM type 2 causing renal disease 04/08/2009 05/03/2009 Overview: Per Diabetes Taxonomy. Type 2 diabetes mellitus wit h hemoglobin A1c goal of less than 7.0% 06/25/2005 05/03/2009 Overview: Per Diabetes Taxonomy. ICD-10 update of inactive term ABN LIVER FUNCTION STUDY 02/01/2005 017 GOUT NOS 05/23/2002 04/22/2016 HTN, goal below 140/90 0 Overview: Per HTN Taxonomy. 04/1994 Sleep apnea 12/24/2016 Overview: Obstructive;Dx 02/1999 PURE HYPERCHOLESTEROLEM 06/20/20 Overview: Per Lipid Taxonomy. Morbid obesity, BMI not known Overview: Per Obesity Taxonomy documented as of this encounter (statuses as of 04/24/2023) Immunizations Name Administration Dates Next Due COVID-19 mRNA, LNP-s, No Pre serve, 2-Dose Series ([employer]) 04/03/2021,09/14/2020,08/17/2020 Influenza, Whole Virus 05/03/2018,07/24/2006 Pneumococcal Conjugate [...] oz pur e alcohol) a few drinks/month Food Insecurity Answer Date Recorded Within the past 12 months, y ou worried that your food would run out before you got money to buy more. Never true 05/18/2019 Within the past 12 months, t he food you bought just didn't last and you didn't have money to get more. Never true 05/18/2019 Sex Assigned at Date Recorded Male 11/10/2018 1:19 PM E DT Job Start Date Occupation Industry Not on [...] encounter Miscellaneous Notes * Telephone Encounter - Robyn Calzada RN - 04/24/2023 11:21 AM EDT Transitions of Care Note Reason for Referral:Recent Admission Phone visit for follow up: GERRY Admitted to: [facility], Date: 04/21/2023 Discharged to: Home, Date: 04/22/2023 Diagnosis driving hospitalization: S/P Transcatheter Aortic Valve Replacement Source/Contact: Patient SUBJECTIVE Consent: Verbal consent for review of hospital discharge: Yes REVIEW OF SYSTEMS Patient/Other Reports: Current patient/caregiver problems or concerns: Patient states he is doing "real good" CV: Denies problems Pulmonary: Denies problems Chills/Sweats/Fever:Denies chills/sweats Denies fever Appetite:Denies problems such as nausea, vomiting, burning, decreased appetite Current diet: Normal Bowel: denies problems Bladder: denies problems Wound (If applicable): Bilateral groin sites, EZ without redness, swelling or drainage Pain:Denies Sleep:Denies problems FUNCTIONAL STATUS: ADL'S: Needs Assistance With:N/A as pt is independent IADL'S: Needs Assistance With:N/A as pt is independent Cognitive and Mental Health: denies problems, alert and oriented x 3, and able to communicate, understand instructions, process information. MEDICATION RECONCILIATION Medications: Discharge med list reviewed with patient or caregiver No new or changed medications ASSESSMENT Medication Risk Assessment: No risks identified Did patient fail outpatient treatment? No Discharge instructions available for review? Yes PLAN Symptom Monitoring Interventions:Member/caregiver education - signs and symptoms to contact PrimaryCare (DO NOT DELETE-Three luther symptoms patient is to report to PCP) 1. Chest Pain/SOB 2. Fever/chills 3. Redness, swelling, drainage or bleeding from groin sites Cleaning MaidCcie of Care interventions/Action Plan: 5 - 7 day follow-up with PCP in place - Date: PCP appointment 04/30/2023 Educated on role of GERRY completed with patient/caregiver. Educated patient/caregiver on patient right to have input on GERRY plan of care. Verification of Home Health/DME if indicated: NA Identified Care Gaps: No Care Gaps closed this call: Appointment made or confirmed and Transition of Care follow-up communication Re-evaluation of Plan of Care and progress towards goals achievement: Patient education this visit: Verbal, Confirmed PCP appointment, Cardiology appointment, discussed reasons to call sooner as above Plan to instructed to call Primary Care Provider with change in symptoms or as needed before next follow-up, discharge needs met, verbalizes understanding and agrees with plan. Robyn Calzada RN documented in this encounter Plan of Treatment Upcoming Encounters Date Type Specialty Care Team Description 04/29/2023 Office Visit Cardiology Jennfier Morse CRNP [address] [place] [address] 04/30/2023 Office Visit Family Medicine Nick Edwards MD [address] [place] [address] 05/05/2023 Office Visit Nephrology Regina Alonso MD [address] [place] [address] 05/21/2023 Office Visit Family Medicine Nick Edwards MD [address] [place] [address] 06/05/2023 Laboratory Laboratory Gema Wolfe [address] [place] [address] 06/05/2023 Office Visit Cardiology Jennifer Morse CRNP [address] [place] [address] 06/23/2023 Office Visit Gastroenterology Rebekah Anguiano MD [address] [place] [phone] 07/14/2023 Office Visit Sleep Disorders Sujey Vega DO [address] [place] [address] Health Maintenance Due Date Last Done Comments Depression Screening 03/29/2021 03/29/2020 COVID-19 Vaccine (5 - 2022-2 4 season) 2023 05/21/2022, 04/03/2021, 09/14/2020, Additional history exists Zoster Vaccines Completed 08/25/2022, 05/07, 11/17/2012 Influenza Vaccine (FLU shot) Completed 05/2023, 04/10/2022, 04/15/2021, Additional history exists documented as of this encounter Medical Devices Implanted Type Area Finish Off Operator Device Identifier Shelf Expiration Date Model / Serial / Lot Valve Heart Trifec Aortic 23mm - [id number] Implanted:Qty : 1 on 05/16/2014 at OR [facility] N/A: Aorta [facility] : CARDIOVASCULAR 07/25/2015 TF-23A / [id number] / Stent Synergy Xd Mr [id number] - [id number] Implanted:Qty : 1 on 04/21/2023 by Christopher Moreno MD at [facility]ARDIAC LABS [facility] [employer] [id number] 10/14/2023 [id number] / / [id number] documented as of this encounter Advance Directives [...] and were consensually agreed upon. Care Teams Zyglo Technician Relationship Specialty Start Date End Date Nick Edwards MD [address] [place] [address] PCP - General 01/11/04 documented as of this encounter
--- OUTSIDE RECORDS SUMMARY | 2023-08-28 15:13 | External Medical Summary | Summary of Care ---
Author Name Unknown Organization [facility] Address [address] [place] [address] Phone [phone] Care Team Providers Care Statistics Professor Name Role Phone Raheem Edwards MD Primary Care Provider Reason for Visit * Reason Onset Date Comments Hospital Follow-Up 04/22/2023 Encounter Details Date Type Department Care Team Description 04/22/2023 Telephone [facility] [address] [place] [address] Raheem Edwards MD [address] [place] [address] Hospital Follow-Up Allergies Active Allergy Reactions Severity Noted Date Comments Felodipine 11/17/2000 plendil Empagliflozin Diarrhea High 06/03/2022 documented as of this encounter (statuses as of 04/23/2023) Medications Medication Sig Dispensed Refills Start Date [...] as of this encounter (statuses as of 04/23/2023) Active Problems Problem Noted Date S/P TAVR [...] as of this encounter (statuses as of 04/23/2023) Resolved Problems Problem Noted Date Resolved Date [...] 12/24/2016 Overview: Obstructive;Dx 02/1999 PURE HYPERCHOLESTEROLEM 06/20/20 09 Overview: Per Lipid Taxonomy. Morbid obesity, BMI not known Overview: Per Obesity Taxonomy documented as of this encounter (statuses as of 04/23/2023) Immunizations Name Administration Dates Next Due COVID-19 mRNA, LNP-s, No Pre serve, 2-Dose Series ([employer]) 04/03/2021,09/14/2020,08/17/2020 Influenza, Whole Virus 05/03/2018,07/24/2006,07/1998 Pneumococcal Conjugate [...] encounter Miscellaneous Notes * Telephone Encounter - SANDI Guzman - 04/23/2023 10:01 AM EDT Scheduled. 04/23/2023 * Telephone Encounter - SANDI Guzman - 04/22/2023 1:42 PM EDT LMOM to schedule Hospital Discharge. 04/22/2023 * Telephone Encounter - SANDI Pierce - 04/22/2023 1:39 PM EDT Patient Name: POPPY MENDOZA([id number]) Sex: Male : 1940 PCP: RAHEEM EDWARDS Center: [facility] Types of orders made on 04/22/2023: IP Post Discharge , Lab, Medications, Point of Care Testing Order Date:04/22/2023 Ordering User:DEX AUGUSTINE [[id number]] Z1 Attending Provider:Christopher Moreno MD [[id number]] Authorizing Provider: Dex Augustine MD [[id number]] Department:CRS EXTEND [facility][[id number]] Order Specific Information Order: RETURN APPT [CUSTOM: [id number]] Order #: [id number]: 1 Priority: Routine Class: Nursing Unit Department (Single Entry) -> Family Practice Appt Needed Within: (Specify # of Days, Weeks, Months) -> 1 Wk Provider -> RAHEEM EDWARDS Released on: 04/22/2023 12:04 PM Priority: Routine Class: Nursing Unit Department (Single Entry) -> Family Practice Appt Needed Within: (Specify # of Days, Weeks, Months) -> 1 Wk Provider -> RAHEEM EDWARDS Released on: 04/22/2023 12:04 PM documented in this encounter Plan of Treatment Upcoming Encounters Date Type Specialty Care Team Description 04/29/2023 Office Visit Cardiology [facility] CR[facility] [address] [facility] [address] 04/30/2023 Office Visit Family Medicine Raheem Edwards MD [address] [place] [address] 05/05/2023 Office Visit Nephrology Regina Alonso MD [address] [place] [address] 05/21/2023 Office Visit Family Medicine Raheem Edwards MD [address] [place] [address] 06/05/2023 Laboratory Laboratory Gema Wolfe [address] [facility] [place] [address] 06/05/2023 Office Visit Cardiology Jennifer Morse CRNP [address] [facility] [place] [address] 06/23/2023 Office Visit Gastroenterology Rebekah Anguiano MD [address] [facility] [place] [phone] 07/14/2023 Office Visit Sleep Disorders Sujey Vega DO [address] [facility] [address] Health Maintenance Due Date Last Done Comments Depression Screening 03/29/2021 03/29/2020 COVID-19 Vaccine (2022- 4 season) 2023 05/21/2022, 04/03/2021, 09/14/2020, Additional history exists Zoster Vaccines Completed 08/25/2022, 05/07, 11/17/2012 Influenza Vaccine (FLU shot) Completed 05/2023, 04/10/2022, 04/15/2021, Additional history exists documented as of this encounter Medical Devices Implanted Type Area Hydrometer Finisher Device Identifier Shelf Expiration Date Model / Serial / Lot Valve Heart Trifec Aortic 23mm - [id number] Implanted:Qty : 1 on 05/16/2014 at [place] [facility] [place] N/A: Aorta [facility] : CARDIOVASCULAR 07/25/2015 TF-23A / [id number] / Stent Synergy Xd Mr [id number] - [id number] Implanted:Qty : 1 on 04/21/2023 by Christopher Moreno MD at [facility] [employer] [id number] 10/14/2023 [id number] / / [id number] documented as of this encounter Advance Directives [...] and were consensually agreed upon. Care Teams Statistics Professor Relationship Specialty Start Date End Date Raheem Edwards MD [address], [place] [phone] PCP - General 01/11/04 documented as of this encounter
--- OUTSIDE RECORDS SUMMARY | 2023-08-28 15:13 | External Medical Summary | Summary of Care ---
Author Name Unknown Organization [facility] Address [address] [facility] [place] [address] Phone [phone] Care Team Providers Care Historic Sites Supervisor Name Role Phone Nick Edwards MD Primary Care Provider [phone] Reason for Visit * Reason Onset Date Comments Information 04/24/2023 Encounter Details Date Type Department Care Team Description 04/24/2023 Telephone Cardiology, [facility] [address] [place] [address] Nick Flores, DEBIC [address] [place] [address] Information Allergies Active Allergy Reactions Severity Noted Date [...] mRNA, LNP-s, No Pre serve, 2-Dose Series ([employer]) 04/03/2021,09/14/2020,08/17/2020 Influenza, Whole Virus 05/03/2018,07/24/2006 Pneumococcal Conjugate [...] encounter Miscellaneous Notes * Telephone Encounter - Nick Flores PA-C - 04/24/2023 4:26 PM EDT ----- Message from Christopher Moreno MD sent at 04/21/2023 4:08 PM EDT ----- Helcristian, I had the pleasure taking care of this patient who underwent transcatheter aortic valve replacementwith me today. As you may remember this is a patient with prior bioprosthetic aortic valve replacement with a 23 mm trifecta valve was been complaining of increasing shortness of breath on exertion. Workup revealed severe symptomatic bioprosthetic aortic valve stenosis. Unfortunately on his preoperative workup he was found to have low coronary clearance of the left coronary artery. The procedure today was performed using general anesthesia with the guidance of transesophageal echocardiogram. We initially attempted to perform basilica however were unsuccessful in traversing the leaflet. We therefore resorted to transcatheter aortic valve replacement with the coronary protection strategy. We implanted a 23 mm Ricci Minesh 3 ultra valve valve in valve fashion inside of the old surgicalbioprosthesis. The left main coronary artery was protected using snorkel stent technique. Final angiogram demonstrated brisk coronary flow without any significant compromise. Final aortic valve gradient was measured to be 8 mmHg. We deemed this to be a technically excellent result. There were no immediately apparent postprocedure complications. The patient was noted to have slow atrial fibrillation at the beginning of the procedure. He is currently being monitored in the cardiac recovery suite with a temporary pacemaker wire in backup mode. Over the next 24-48 hours we will make a determination of whether a permanent pacemaker implantation is necessary. Thank you very much for the referral. Please do not hesitate to reach out to me with any questions. Christopher Moreno MD MPH Interventional Cardiology Pager: [phone] 04/21/23 4:11 PM documented in this encounter Plan of Treatment Upcoming Encounters Date Type Specialty Care Team Description 04/29/2023 Office Visit Cardiology Jennifer Morse CRNP [address] [place] [address] 04/30/2023 Office Visit Family Medicine Nick Edwards MD [address] [place] [address] 05/05/2023 Office Visit Nephrology Regina Alonso MD [address] [place], [place] [phone] 05/21/2023 Office Visit Family Medicine Nick Edwards MD [address] [place] [address] 06/05/2023 Laboratory Laboratory Wolfe, Gema Sheyla [address] [place] [address] 06/05/2023 Office Visit Cardiology Jennifer Morse CRNP [address] [place] [address] 06/23/2023 Office Visit Gastroenterology Rebekah Anguiano MD [address] [place] [phone] 07/14/2023 Office Visit Sleep Disorders Sujey Vega DO [address] [place] [address] Health Maintenance Due Date Last Done Comments Depression Screening 03/29/2021 03/29/2020 COVID-19 Vaccine (2022-2 4 season) 2023 05/21/2022, 04/03/2021, 09/14/2020, Additional history exists Zoster Vaccines Completed 08/25/2022, 05/07, 11/17/2012 Influenza Vaccine (FLU shot) Completed 05/2023, 04/10/2022, 04/15/2021, Additional history exists documented as of this encounter Medical Devices Implanted Type Area Organ Tuner Device Identifier Shelf Expiration Date Model / Serial / Lot Valve Heart Trifec Aortic 23mm - [id number] Implanted:Qty : 1 on 05/16/2014 [place] [facility] N/A: Aorta [facility] : CARDIOVASCULAR 07/25/2015 TF-23A / [id number] / Stent Synergy Xd Mr [id number] - [id number] Implanted:Qty : 1 on 04/21/2023 by Christopher Moreno MD at [facility] [employer] [id number] 10/14/2023 [id number] / / [id number] documented as of this encounter Advance Directives [...] and were consensually agreed upon. Care Teams Historic Sites Supervisor Relationship Specialty Start Date End Date Nick Edwards MD [address] [place] [address] PCP - General 01/11/04 documented as of this encounter
--- OUTSIDE RECORDS SUMMARY | 2023-08-28 15:13 | External Medical Summary | Summary of Care ---
Author Name Unknown Organization [facility] Address [address] [place] [place] [address] Phone [phone] Care Team Providers Care Case Resolution Specialist Name Role Phone Nick Edwards MD Primary Care Provider [phone] Encounter Details Date Type Department Care Team Description 04/23/2023 Documentation Cardiac Studies [facility] [address] [place] [address] Lizett Sequeira, MS Allergies Active Allergy Reactions Severity Noted Date [...] without long-term current use of insulin 05/03/2009 02/09/2021 Overview: Per Diabetes Taxonomy. DM type 2 [...] mRNA, LNP-s, No Pre serve, 2-Dose Series ([employer]) 04/03/2021,09/14/2020,08/17/2020 Influenza, Whole Virus 05/03/2018,07/24/2006 Pneumococcal Conjugate [...] as of this encounter Progress Notes * Lizett Sequeira, MS - 04/23/2023 10:32 AM EDT I was unable to speak to Gregorio Davidson during his recent admission regarding his referral for phase II cardiac rehab. I mailed Gregorio Hollidayone a packet of information explaining the program and benefits of participating. The packet also contains instructions on how to enroll in his local hospital should he decide to participate in the future. Lizett Sequeira, ACS-CEP documented in this encounter Plan of Treatment Upcoming Encounters Date Type Specialty Care Team Description 04/29/2023 Office Visit Cardiology Jennifer Morse CRNP [address] [facility] [place] [address] 04/30/2023 Office Visit Family Medicine Nick Edwards MD [address] [place] [address] 05/05/2023 Office Visit Nephrology Regina Alonso MD [address] [place] [address] 05/21/2023 Office Visit Family Medicine Nick Edwards MD [address] [place] [address] 06/05/2023 Laboratory Laboratory Gema Wolfe [address] [place] [address] 06/05/2023 Office Visit Cardiology Jennifer Morse CRNP [address] [place] [address] 06/23/2023 Office Visit Gastroenterology Rebekah Anguiano MD [address] [place] [phone] 07/14/2023 Office Visit Sleep Disorders Sujey Vega DO [address] [place] [address] Health Maintenance Due Date Last Done Comments Depression Screening 03/29/2021 03/29/2020 COVID-19 Vaccine (2022-2 4 season) 2023 05/21/2022, 04/03/2021, 09/14/2020, Additional history exists Zoster Vaccines Completed 08/25/2022, 05/07, 11/17/2012 Influenza Vaccine (FLU shot) Completed 05/2023, 04/10/2022, 04/15/2021, Additional history exists documented as of this encounter Medical Devices Implanted Type Area On Site Soil Evaluator Device Identifier Shelf Expiration Date Model / Serial / Lot Valve Heart Trifec Aortic 23mm - [id number] Implanted:Qty : 1 on 05/16/2014 at OR [facility] [place] N/A: Aorta [facility] JUAN : CARDIOVASCULAR 07/25/2015 TF-23A / [id number] / Stent Synergy Xd Mr [id number] - [id number] Implanted:Qty : 1 on 04/21/2023 by Christopher Moreno MD at [facility]ARDIAC LABS [facility] [employer] [id number] 10/14/2023 [id number] / / [id number] documented as of this encounter Advance Directives [...] and were consensually agreed upon. Care Teams Case Resolution Specialist Relationship Specialty Start Date End Date Nick Edwards MD [address] [place] [address] PCP - General 01/11/04 documented as of this encounter
--- OUTSIDE RECORDS SUMMARY | 2023-08-28 15:13 | External Medical Summary | Summary of Care ---
Author Name Unknown Organization [facility] Address [address] [facility] [place] [place] [address] Phone [phone] Care Team Providers Care Heavy Lift Rigger Name Role Phone Nick Edwards MD Primary Care Provider Reason for Visit * Auth/Cert Specialty Diagnoses / Procedures Referred By Kalyn t Referred To Contact Diagnoses Aortic stenosis Aortic stenosis [I35.0] Procedures REPLACE AORTIC VALVE, PERCUTANEOUS FEMORAL REPLACE AORTIC VALVE, PERCUTANEOUS FEMORAL REPLACE AORTIC VALVE, PERCUTANEOUS FEMORAL REPLACE AORTIC VALVE, PERCUTANEOUS FEMORAL Referral ID Status Reason Start Date Expiration Date Visits Re quested Visits Authorized [id number] Encounter Details Date Type Department Care Team Description 04/22/2023 Hospital Encounter Cardiac Studies [place] [address] [place] [address] Allergies Active Allergy Reactions Severity Noted Date [...] without long-term current use of insulin 05/03/2009 0209/2021 Overview: Per Diabetes Taxonomy. DM type 2 [...] mRNA, LNP-s, No Pre serve, 2-Dose Series ([employer]) 04/03/2021,09/14/2020,08/17/2020 Influenza, Whole Virus 05/03/2018,07/24/2006 Pneumococcal Conjugate [...] Visit Cardiology Jennifer Morse CRNP [address] [facility] [address] 04/30/2023 Office Visit Family Medicine Nick Edwards MD [address] [place] [address] 05/05/2023 Office Visit Nephrology Regina Alonso MD [address] [place] [address] 05/21/2023 Office Visit Family Medicine Nick Edwards MD [address] [place] [address] 06/05/2023 Laboratory Laboratory Gema Wolfe [address] [facility] [place] [address] 06/05/2023 Office Visit Cardiology Jennifer Morse CRNP [address] [facility] [address] 06/23/2023 Office Visit Gastroenterology Rebekah Anguiano MD [address] [facility] [place] [id number] 07/14/2023 Office Visit Sleep Disorders Sujey Vega DO [address] [facility] [place] [address] Health Maintenance Due Date Last Done Comments Depression Screening 03/29/2021 03/29/2020 COVID-19 Vaccine (2022- 4 season) 2023 05/21/2022, 04/03/2021, 09/14/2020, Additional history exists Zoster Vaccines Completed 08/25/2022, 05/07, 11/17/2012 Influenza Vaccine (FLU shot) Completed 05/2023, 04/10/2022, 04/15/2021, Additional history exists documented as of this encounter Medical Devices Implanted Type Area Wood Sash And Frame Carpenter Device Identifier Shelf Expiration Date Model / Serial / Lot Valve Heart Trifec Aortic 23mm - [id number] Implanted:Qty : 1 on 05/16/2014 at OR [facility] [place] N/A: Aorta [employer] JUAN : CARDIOVASCULAR 07/25/2015 TF-23A / [id number] / Stent Synergy Xd Mr [id number] - [id number] Implanted:Qty : 1 on 04/21/2023 by Christopher Moreno MD at [facility]ARDIAC LABS [facility] [place] [employer] [id number] 10/14/2023 [id number] / / [id number] documented as of this encounter Procedures Procedure Name Priority Date/Time Associated Diagnosis Comments ECHO, COMPLETE (2D), TRANS-THORACIC Routine 04/22/2023 7:00 AM EDT S/P TAVR (transcatheter aortic valve replacement) documented in this encounter Visit Diagnoses Diagnosis HTN, goal below 140/90- Primary Unspecified essential hypertension S/P AVR Heart valve replaced by other means Heart failure, unspecified HF chronicity, unspecified heart failure type (HCC) S/P TAVR (transcatheter aortic valve replacement) Heart valve replaced by other means Chronic atrial fibrillation (HCC) Atrial fibrillation documented in this encounter Administered Medications Inactive Administered Medications - up to 3 most recent administrations Medication Order MAR Action Action Date Dose Rate Site perflutren lipid microsphere inj SUSP 1.956 mg 1.956 mg, Intravenous, ONCE PRN Other, For Echo Only - Suboptimal Echo Images, Starting on Thu04/22/23 at 0715, Until Thu04/22/23 at 0914, For 2 hours, Administer IVP over 45 seconds, Cardiac Studies_HODHOV Given 04/22/2023 7:16 AM EDT 1.956 mg documented in this encounter Advance Directives Latest [...] and were consensually agreed upon. Care Teams Heavy Lift Rigger Relationship Specialty Start Date End Date Nick Edwards MD [address], [place] [id number] PCP - General 01/11/04 documented as of this encounter
--- OUTSIDE RECORDS SUMMARY | 2023-08-28 15:14 | External Medical Summary | Summary of Care ---
Author Name Unknown Organization [facility] Address [address] [facility] [place] [address] Phone [phone] Care Team Providers Care Air Brake Operator Name Role Phone Raheem Edwards MD Primary Care Provider Reason for Visit * Reason Onset Date Comments Hospital Follow-Up 04/22/2023 Encounter Details Date Type Department Care Team Description 04/22/2023 Telephone [facility] [address] [place] [address] Raheem Edwards MD [address] [place] [address] Hospital Follow-Up Allergies Active Allergy Reactions Severity Noted Date Comments Felodipine 11/17/2000 plendil Empagliflozin Diarrhea High 06/03/2022 documented as of this encounter (statuses as of 04/22/2023) Medications Medication Sig Dispensed Refills Start Date [...] as of this encounter (statuses as of 04/22/2023) Active Problems Problem Noted Date S/P TAVR [...] as of this encounter (statuses as of 04/22/2023) Resolved Problems Problem Noted Date Resolved Date [...] as of this encounter (statuses as of 04/22/2023) Immunizations Name Administration Dates Next Due COVID-19 mRNA, LNP-s, No Pre serve, 2-Dose Series ([employer]) 04/03/2021,09/14/2020,08/17/2020 Influenza, Whole Virus 05/03/2018,07/24/2006 Pneumococcal Conjugate [...] 04/22/2023 1:39 PM EDT Patient Name: POPPY MENDOZA([id number]) Sex: Male : 1940 PCP: RAHEEM EDWARDS Center: [facility] Types of orders made on 04/22/2023: IP Post Discharge , Lab, Medications, Point of Care Testing Order Date:04/22/2023 Ordering User:DEX AUGUSTINE [[id number]] Z1 Attending Provider:Christopher Moreno MD [[id number]] Authorizing Provider: Dex Augustine MD [[id number]] Department:CRS EXTEND IP [facility][[id number]] Order Specific Information Order: RETURN APPT [CUSTOM: [id number]] Order #: [id number]: 1 Priority: Routine Class: Nursing Unit Department [...] Encounters Date Type Specialty Care Team Description 05/05/2023 Office Visit Nephrology Regina Alonso MD [address] [place] [address] 05/21/2023 Office Visit Family Medicine Raheem Edwards MD [address] [place] [address] 06/23/2023 Office Visit Gastroenterology Rebekah Anguiano MD [address] [place] [address] 07/14/2023 Office Visit Sleep Disorders Sujey Vega, DO [address] [place] [address] Health Maintenance Due Date Last Done Comments Depression Screening 03/29/2021 03/29/2020 COVID-19 Vaccine (2022-08 4 season) 2023 05/21/2022, 04/03/2021, 09/14/2020, Additional history exists Zoster Vaccines Completed 08/25/2022, 05/07, 11/17/2012 Influenza Vaccine (FLU shot) Completed 05/2023, 04/10/2022, 04/15/2021, Additional history exists documented as of this encounter Medical Devices Implanted Type Area Pest Control Operator Device Identifier Shelf Expiration Date Model / Serial / Lot Valve Heart Trifec Aortic 23mm - [id number] Implanted:Qty : 1 on 05/16/2014 at OR [facility] [place] N/A: Aorta [employer] JUAN : CARDIOVASCULAR 07/25/2015 TF-23A / [id number] / Stent Synergy Xd Mr [id number] - [id number] Implanted:Qty : 1 on 04/21/2023 by Christopher Moreno MD at [facility]S [facility] [place] [employer] [id number] 10/14/2023 [id number] / / [id number] documented as of this encounter Advance Directives Latest Code Status on File Code Status Date Activated Date Inactivated Comments Full Code 04/21/2023 11:25 AM This ord er reflects the patients wishes and were consensually [...] and were consensually agreed upon. Care Teams Air Brake Operator Relationship Specialty Start Date End Date Raheem Edwards MD [address] [place] [address] PCP - General 01/11/04 documented as of this encounter
--- OUTSIDE RECORDS SUMMARY | 2023-08-28 15:14 | External Medical Summary | Summary of Care ---
Author Name Unknown Organization [facility] Address [address] [facility] [place] [address] Phone [phone] Care Team Providers Care Leaf Coverer Name Role Phone Nick Edwards MD Primary [...] Expiration Date Visits Re quested Visits Authorized [id number] 999 999 Encounter Details Date Type Department Care Team Description 04/21/2023 Hospital Encounter Cardiac Studies [place] [address] [place] [address] Allergies Active Allergy Reactions Severity Noted Date Comments Felodipine 11/17/2000 plendil Empagliflozin Diarrhea High 06/03/2022 documented as of this encounter (statuses as of 04/22/2023) Medications Medication Sig Dispensed Refills Start Date End Date Status ASPIRIN TABS 81 MG OR Take 1 Tablet by mouth daily. 34 5 11/17/2000 Suspended VITAMIN D3 1000 UNITS PO TABS Take 1 Tablet by mouth daily. 0 12/26/2013 Suspended VITAMIN B-12 500 MCG PO TABS Take 1 Tablet by mouth daily. 1 Tab 0 07/26/2014 Suspended [facility] VITAMIN B-1 100 MG PO TABS Take 1 Tablet by mouth daily. 1 Tab 0 07/26/2014 Suspended FOLIC ACID 0.8 MG PO CAPS Take 1 Capsule by mouth daily. 0 Suspended OneTouch Ultra Blue In Vitro Strip (Glucose Blood) 2X'S A DAY DX E11.9 200 Strip 3 01/20/2022 Suspended Additional Information Amoxicillin 500 MG Oral Capsule (Amoxil)Indicatio ns:S/P AVR TAKE 4 CAPSULES BY MOUTH 1/2 HOUR BEFORE DENTAL APPOINTMENT 4 Capsule 2 03/29/2022 Suspended Additional Information Atorvastatin Calcium 40 MG Oral Tablet (Lipitor)Indicati ons:Dyslipidemia, goal LDL below 100 Take 1 Tablet by mouth every evening. 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 90 Tablet 3 01/05/2023 Suspended Additional Information Furosemide 40 MG Oral Tablet (Lasix)Indication s:Heart failure (HCC),Stage 3 chronic kidney disease, unspecified whether stage 3a or 3b CKD (HCC) TAKE 1 TABLET BY MOUTH EVERY DAY IN THE MORNING 90 Tablet 3 01/26/2023 Suspended Additional Information Carvedilol 3.125 MG Oral Tablet (Coreg)Indication s:Diastolic heart failure, unspecified HF chronicity (HCC) 1/2 tab twice daily 90 Tablet 1 02/24/2023 Suspended Additional Information hydrALAZINE HCl 10 MG Oral Tablet (Apresoline)Indic ations:Diastolic heart failure, unspecified HF chronicity (HCC) Take 0.5 Tablets by mouth in the morning and 0.5 Tablets before bedtime. 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 60 Tablet 5 03/16/2023 Suspended Additional Information Clopidogrel Bisulfate 75 MG Oral Tablet (pLAVix) Take 1 Tablet by mouth in the morning. 90 Tablet 3 04/09/2023 Suspended Additional Information CPAP by Device route every night at bedtime. 0 Suspended documented as of this encounter (statuses as [...] stairs? (5 years old or older) No 04/21/2023 Do you have difficulty dress ing or [...] Office Visit Nephrology Regina Alonso MD [address] [place] [address] 05/21/2023 Office Visit Family Medicine Nick Edwards MD [address] [place] [address] 06/23/2023 Office Visit Gastroenterology Rebekah Anguiano MD [address] [place] [address] 07/14/2023 Office Visit Sleep Disorders Sujey Vega, [address] [place] [address] Health Maintenance Due Date Last Done Comments Depression Screening 03/29/2021 03/29/2020 COVID-19 Vaccine (2022-08 4 season) 2023 05/21/2022, 04/03/2021, 09/14/2020, Additional history exists Zoster Vaccines Completed 08/25/2022, 05/07, 11/17/2012 Influenza Vaccine (FLU shot) Completed 05/2023, 04/10/2022, 04/15/2021, Additional history exists documented as of this encounter Medical Devices Implanted Type Area Traffic Technician Device Identifier Shelf Expiration Date Model / Serial / Lot Valve Heart Trifec Aortic 23mm - [id number] Implanted:Qty : 1 on 05/16/2014 at [place] [facility] [place] N/A: Aorta [employer] JUAN : CARDIOVASCULAR 07/25/2015 TF-23A / [id number] / Stent Synergy Xd Mr [id number] - [id number] Implanted:Qty : 1 on 04/21/2023 by Christopher Moreno MD at [facility] [place] [employer] [id number] 10/14/2023 [id number] / / [id number] documented as of this encounter Procedures Procedure Name Priority Date/Time Associated Diagnosis Comments TRANSESOPHAGEAL ECHO (COMPLETE) Routine 04/21/2023 10:50 AM EDT Valvular heart disease documented in this encounter Results * TRANSESOPHAGEAL ECHO (COMPLETE) (04/21/2023 10:50 AM EDT) LEFT VENTRICULAR EJECTION FRACTION 65 % [facility] 04/21/2023 7:57 AM EDT Christopher Moreno MD [facility] documented in this encounter Advance Directives Latest [...] and were consensually agreed upon. Care Teams Leaf Coverer Relationship Specialty Start Date End Date Nick Edwards MD [facility] [place] [address] PCP - General 01/11/04 documented as of this encounter
--- OUTSIDE RECORDS SUMMARY | 2023-08-28 15:14 | External Medical Summary ---
Author Name Unknown Address Unknown Organization : Laboratory Report Ordering Provider Test Date Status EKTA FIGUEROA 04/21/2023 09:26:57 Final Observation Date Value Abnormality Reference (Units) Status Blood draw [PhenX] 04/21/2023 09:26:57 Arterial Draw Final pH, POC (i-STAT) 04/21/2023 09:26:57 7.457 Above high normal 7.350-7.450 Final PCO2 POC (i-STAT) 04/21/2023 09:26:57 39.6 35.0-45.0 (mm Hg) Final PO2 POC (i-STAT) 04/21/2023 09:26:57 427 Above high normal 75-100 (mm Hg) Final Base excess standard in Arterial blood by calculation 04/21/2023 09:26:57 4 Above high normal -2-2 (mmol/L) Final Bicarbonate, Venous, POC (i-STAT) 04/21/2023 09:26:57 28.0 23.0-31.0 (mmol/L) Final O2 Sat, calculated POC (i-STAT) 04/21/2023 09:26:57 100.0 Above high normal 94.0-98.0 (%) Final Glucose, whole blood 04/21/2023 09:26:57 134 Above high normal 70-120 (mg/dL) Final Potassium, Whole Blood 04/21/2023 09:26:57 3.7 3.5-5.1 (mmol/L) Final Sodium, Whole Blood 04/21/2023 09:26:57 141 135-146 (mmol/L) Final Calcium, Ionized, Whole Blood 04/21/2023 09:26:57 1.11 Below low normal 1.13-1.32 (mmol/L) Final Hemoglobin POC (i-STAT) 04/21/2023 09:26:57 8.8 Below low normal 14.0-16.8 (g/dL) Final HCT 04/21/2023 09:26:57 26 Below low normal 40-48 (%) Final Performing Location
--- OUTSIDE RECORDS SUMMARY | 2023-08-28 15:14 | External Medical Summary | Summary of Care ---
Author Name Unknown Organization [facility] Address [address] [place] [address] Phone [phone] Care Team Providers Care Director Of Corporate Strategy Name Role Phone Nick Edwards MD Primary Care Provider [phone] Reason for Referral * Evaluate & Treat - Unlimited Visits (Within 30 days (routine)) - Pending Review Specialty Diagnoses / Procedures Referred By Kalyn flores Referred To Contact CARDIAC REHAB / Cardiology Diagnoses S/P TAVR (transcatheter aortic valve replacement) Sierra Augustine MD [address] [place] [address] Referral ID Status Reason Start Date Expiration Date Visits Requested Visits Authorized [id number] Pending Review Specialty Services Required 3 [phone] Question Answer Referral Priority Within 30 days (routine) Where should this appointment be scheduled? [facility] Comments Discharge Order Reason for Visit * Auth/Cert Specialty Diagnoses / Procedures Referred By Kalyn t Referred To Contact Diagnoses Aortic stenosis Aortic stenosis [I35.0] Procedures REPLACE AORTIC VALVE, PERCUTANEOUS FEMORAL REPLACE AORTIC VALVE, PERCUTANEOUS FEMORAL REPLACE AORTIC VALVE, PERCUTANEOUS FEMORAL REPLACE AORTIC VALVE, PERCUTANEOUS FEMORAL Referral ID Status Reason Start Date Expiration Date Visits Re quested Visits Authorized [id number] [phone] Encounter Details Date Type Department Care Team Description 04/21/2023 - 04/22/2023 Hospital Encounter AM 8, [facility] 8th Floor [address] [place] [address] Breonna Moreno MD [address] [place] [address] Pravin Thomas MD [address] [facility] [place] [id number] EKG Report Allergies Active Allergy Reactions Severity Noted Date [...] disease, without long-term current use of insulin 05/03/200909/2021 Overview: Per Diabetes Taxonomy. DM type 2 [...] Sign Reading Time Taken Comments Blood Pressure 119/61 04/22/2023 11:54 AM EDT Pulse 73 04/22/2023 11:54 AM EDT Temperature 36.9 C (98.4 F) 04/22/2023 11:54 AM E DT Respiratory Rate 16 04/22/2023 11:54 AM EDT Oxygen Saturation 94% 04/22/2023 11:54 AM EDT Inhaled Oxygen Concentration - - Weight 98.4 kg (217 lb) 04/21/2023 6:22 AM EDT Height 180.3 cm (5' 11") 04/21/2023 6:22 AM EDT Body Mass Index 30.27 04/21/2023 6:22 AM EDT documented in this [...] No 04/21/2023 documented as of this encounter Discharge Summaries * Pravin Thomas MD - 04/22/2023 12:13 PM EDT [facility] [address] Admission Date: 04/21/2023 Discharge Date: 04/22/2023 DISCHARGE DIAGNOSES: Active Hospital Problems Diagnosis *Principal Diagnosis - S/P TAVR (transcatheter aortic valve replacement) Chronic atrial fibrillation (HCC) Type 2 diabetes mellitus with hemoglobin A1c goal of less than 8.0% (HCC) Hypertensive kidney disease with stage 3 chronic kidney disease (HCC) HTN, goal below 140/90 S/P AVR Steatohepatitis, non-alcoholic Dyslipidemia, goal LDL below 100 Resolved Hospital Problems No resolved problems to display. Attending Provider: Pravin Thomas MD CONDITION ON DISCHARGE: stable DISPOSITION ON DISCHARGE: home FOLLOW-UP: Future Appointments Appt Date/Time Provider Department 05/05/2023 10:20 AM Regina Alonso MD Nephrology, [facility] 05/21/2023 11:20 AM Nick Edwards MD [facility] 06/23/2023 11:00 AM Rebekah Anguiano MD Hepatology, [facility] 07/14/2023 10:00 AM Sujey Vega DO Sleep Disorders [facility] Follow up with valve clinic in 1 week Outpatient testing already scheduled: none Inpatient test results pending: NA MEDICATIONS ON DISCHARGE: MEDICATION UPDATES AT DISCHARGE CONTINUE taking these medications INSTRUCTIONS Allopurinol 100 MG Tablet Commonly known as: Zyloprim TAKE ONE TABLET BY MOUTH DAILY OR DIRECTED Amoxicillin 500 MG Capsule Commonly known as: Amoxil TAKE 4 CAPSULES BY MOUTH 1/2 HOUR BEFORE DENTAL APPOINTMENT Aspirin 81 MG Tablet Take 1 Tablet by mouth daily. atorvaSTATin 40 MG Tablet Commonly known as: Lipitor Take 1 Tablet by mouth every evening. Carvedilol 3.125 MG Tablet Commonly known as: Coreg 1/2 tab twice daily cholecalciferol (VIT D3) 1000 UNITS Tablet Commonly known as: Vitamin D3 Take 1 Tablet by mouth daily. clopidogrel 75 MG Tablet Commonly known as: pLAVix Take 1 Tablet by mouth in the morning. CPAP by Device route every night at bedtime. [facility] Vitamin B-1 100 MG Tablet Generic drug: THIAMINE Take 1 Tablet by mouth daily. CYANOCOBALAMIN 500 MCG Tablet Commonly known as: vitamin B-12 Take 1 Tablet by mouth daily. Ferrous Sulfate 325 (65 FE) MG Tablet Commonly known as: Feosol Take 1 Tablet by mouth in the morning. Folic Acid 0.8 MG Caps Take 1 Capsule by mouth daily. Furosemide 40 MG Tablet Commonly known as: Lasix TAKE 1 TABLET BY MOUTH EVERY DAY IN THE MORNING hydrALAZINE 10 MG Tablet Commonly known as: Apresoline Take 0.5 Tablets by mouth in the morning and 0.5 Tablets before bedtime. OneTouch Ultra Blue Strp Generic drug: Glucose Blood 2X'S A DAY DX E11.9 pantoprazole 40 MG Tbec Commonly known as: Protonix Take 1 Tablet by mouth in the morning and 1 Tablet in the evening. TRUEplus Lancets 33G Misc 2X'S A DAY DX E11.9 ALLERGIES: Jardiance [empagliflozin] and Felodipine INSTRUCTIONS: Activity: The following activities are restricted until you are seen in clinic for you post procedure check (approximately 1 week). o Do not drive o Do not lift anything heavier than 10 pounds o No heavy chores (housekeeping, lawn/yard care, etc.) * There is no restriction on climbing stairs. Climb them at a comfortable pace. Diet: normal diet Code status (this admission): Full Code Discussion of adv directives occurred with - adult: Patient ADMISSION HISTORY & PHYSICAL EXAM (focused): PRESENTING PROBLEM: s/p TAVR HPI: Gregorio Davidson is an 82 year-old male admitted to the cardiology service for observation after undergoing TAVR for severe symptomatic bioprosthetic aortic valve stenosis. The patient was evaluated s/p TAVR 04/21. He offers no complaints. Denies any dizziness, headache, chest discomfort, shortness of breath, abdominal pain, nausea or vomiting. States his throat feels sore. Cardiac Hx: Aortic valve disease, severe calcific aortic valve stenosis status post May 2014 aortic valve replacement with a [address] Jewel Trifecta bioprosthesis. Cardiac catheterization 03/13/2023 no obstructive disease Atrial fibrillation- not on AC due to bleeding ulcer CHADSVASC 6 (age, DM, HTN, HF, CAD) SANDI on CPAP Most recent TTE 60% 02/25/2023 Type 2 Diabetes Mellitus HTN/HLD CKD Stage IIIb DE [place] CRUZ cirrhosis BP: (P) 172 mmHg/62 mmHg (04/21/23 1135) Pulse: 59 (04/21/23 1135) Temp: 35.5 C (04/21/23 1105) Resp: 15 (04/21/23 1135) SpO2: 100 % (04/21/23 1135) Constitutional: no acute distress, (+) chronically ill HEENT: normocephalic, atraumatic CV: S1 S2, RRR Abdomen: normal: soft, bowel sounds normal, no masses, tenderness or organomegaly Extremities: no edema Skin: warm, dry: Psych: normal mood and affect HOSPITAL COURSE (focused): Patient was admitted for monitoring after TAVR procedure for severe aortic stenosis. He tolerated the procedure well. Routine labs, imaging, and EKGs post- operative remained within acceptable limits.Patient is stable for discharge home with close PCP follow-up. Operations & Procedures: INDICATION FOR PROCEDURE: Severe Symptomatic Aortic Stenosis PROCEDURES: Successful transfemoral implantation of a # 23 mm Ricci Minesh S3 Ultra valve Placement of temporary venous pacemaker Arterial access site closure with single Perclose Proglide devices Selective angiography of the right common iliac artery Unsuccessful attempt at BASILICA Imaging: TTE 04/22/2023 Interpretation Summary The examination is adequate to evaluate the referral indication. The qualitative LV ejection fraction is 60-64% (normal). No LV segmental wall motion abnormalities. The patient is status post TAVR with Minesh type prosthetic valve. Aortic valve prosthesis stenosisis absent. Significant aortic valve prosthesis regurgitation is absent. The proximal ascending thoracic aorta is mildly enlarged. No pericardial effusion is noted. SELECTED RESULTS: Last recorded weight: Weight: 98.4 kg (217 lb) (04/21/23621) Laboratory: CARDIAC: Troponin T (see below for last three most recent values): No results found for: TROPT CHEMISTRY: BUN, Creatinine, GFR Estimated, Sodium, Potassium, Chloride, Carbon Dioxide, Glucose, Calcium (see below for most recent value): Lab Results Component Value Date/Time BUN 44 (H) 04/22/2023 05:47 AM BUN 29 (H) 08/02/2020 02:01 PM CREAT 2.1 (H) 04/22/2023 05:47 AM CREAT 1.5 (H) 08/02/2020 02:01 PM GFRESTIMATED 42.7 (L) 08/02/2020 02:01 PM NA 139 04/22/2023 05:47 AM NA 141 08/02/2020 02:01 PM POTASSIUM 4.8 04/22/2023 05:47 AM POTASSIUM 3.7 04/21/2023 09:26 AM POTASSIUM 4.6 08/02/2020 02:01 PM CL 105 04/22/2023 05:47 AM CL 103 08/02/2020 02:01 PM CO2 23 04/22/2023 05:47 AM CO2 27 08/02/2020 02:01 PM CA 8.1 (L) 04/22/2023 05:47 AM CA 9.2 08/02/2020 02:01 PM CREATININE: Creatinine (see below for last three most recent values): Lab Results Component Value Date/Time CREAT 2.1 (H) 04/22/2023 05:47 AM CREAT 2.0 (H) 04/21/2023 01:05 PM CREAT 2.1 (H) 04/21/2023 07:04 AM CREAT 1.5 (H) 08/02/2020 02:01 PM CREAT 1.6 (H) 03/08/2020 08:38 AM CREAT 1.5 (H) 05/18/2019 01:45 PM BLOOD COUNT: WBC, Hgb, Platelets (see below for most recent value): Lab Results Component Value Date/Time WBC 7.14 04/22/2023 05:47 AM WBC 8.07 08/02/2020 02:01 PM HGB 9.1 (L) 04/22/2023 05:47 AM HGB 10.9 (L) 08/02/2020 02:01 PM PLT 78 (L) 04/22/2023 05:47 AM PLT 148 08/02/2020 02:01 PM HEMOGLOBIN A1C: (see below for most recent value): Lab Results Component Value Date/Time HGBA1C 6.2 (H) 11/13/2022 12:11 PM HGBA1C 6.6 (H) 03/08/2020 08:38 AM Complications: none CONSULTS ORDERED: CARE MANAGEMENT CONSULT IP CARE MANAGEMENT CONSULT IP REFERRING PHYSICIAN: Ref: BREONNA MORENO[[id number]] [address] [place] [address] (office) [phone] (fax) PRIMARY CARE PROVIDER: PCP: Nick Edwards MD [address] [facility] / [place] [address] (office) [phone] (fax) I saw and evaluated the patient today. I have reviewed the trainee note and agree. Note: To contact a physician responsible for this patients hospital care, please call [employer] at([phone]. documented in this encounter Discharge Instructions * Discharge Instr - AVS* Sierra Augustine MD - 04/22/2023 12:03 PM EDT Discharge Date: 04/22/[address] Thomas of the Department of Cardiology at [phone] during business hours for anyquestions or test results. For after-hours emergencies call [phone] and have your doctor paged. Scheduling services is available between the hours of 8:00 am and 9:00 pm by calling . For routine questions, your [facility] Cardiology Team prefers the use of Vizy. Vizy is an online internet tool to help you meet your health care needs quickly by providing a secure, confidential way to view your health records and communicate with your [facility] Cardiology Team. To sign up for Vizy go to [email or web address], "Click" [place] Now on the right side of the screen and complete the user registration information. The information below provides you with the instructions and the list of medications you need to betaking following discharge from the hospital. If you have any questions, please ask before leaving.Please carry this letter with you when you see your doctor in the clinic. If you have questions, you can reach us at the numbers above. Brief summary of your inpatient care: You came to the hospital for TAVR. You underwent placement ofEdwards Minesh #23. You were observed overnight without complications. You will follow up with the valve clinic in 1 week. Please see your PCP within 1 week. See below for additional information. Your doctors during this hospitalization included: Dr. Moreno of the Department of Cardiology and Dr. Thomas of the Department of Cardiology Inpatient test results pending: None Operations & Procedures: trascatheter aortic valve replacement Complications: none significant Advance Directive Documented: Advance Directive Does the Patient have an Advance Directive? No Diet: Normal diet Post TAVR Patient Instructions Activity * The following activities are restricted until you are seen in clinic for you post procedure check(approximately 1 week). o Do not drive o Do not lift anything heavier than 10 pounds o No heavy chores (housekeeping, lawn/yard care, etc.) * There is no restriction on climbing stairs. Climb them at a comfortable pace. * Get up in the morning and dress in your regular, every day clothes. * Gradually get back into your daily routine. Ordinary activities such as dressing, showering and grooming may make you tired during your first days at home. Spread your activities out over the day and take frequent rest periods. * The more you are up and about the quicker you will be able to resume your daily activities. o Look for opportunities to move around and try to increase your activity level by small amounts every day. o Concentrate initially on increasing the amount of time you are doing an activity (not how fast you do the activity). o Start with short walks several times a day and progress as you are able. * During hot and humid weather, walk indoors or during the coolest part of the day (instrument room technician, late evening). * During cold weather, walk indoors or during the warmest part of the day (afternoons). * Sit up in a chair as often as possible. * Support stockings o These stockings are used to prevent postoperative leg swelling and blood clots. o Put on clean stockings in the morning and remove them at night. o When putting them back on, get all the wrinkles out. o Wear the stockings until your ankles and legs are no longer swollen. * Consider a cardiac rehabilitation program. o This program combines modern equipment and techniques with individual counseling and instructionsby exercise physiologists and nurses. o Cardiac rehabilitation generally starts about one month after going home. o If you have not heard about or been contacted by a cardiac rehabilitation program after going home, please contact your heart team or discuss with your provider at your one-month office post procedure office visit. Procedure Site * Normal occurrences at procedure sites: o Soreness o Small amount of drainage o Bruising that extends several inches around the site o One or two small lumps (about the size of a marble) at the site o Usually any discomfort or swelling at the site will gradually return to normal over the next month * A small bandage or Band-Aid will be placed over the area where the catheter(s) have been removed. o The dressing should be removed the day after discharge. o It is important to keep the area clean and dry o You may shower the day after your procedure. o Wash with soap and water, pat the incision dry. o Avoid lotions or creams at incision site. o Leave the area open to air. o Apply a Band-Aid if there is some drainage or oozing. o Avoid tub baths for 5-7 days. * It is important to check the site for signs of infection or complications o If you are unable to see the site, have someone look at it for you. o Signs of infection include: drainage (pus), fever and/or chills. o Some soreness at the site is normal. Tylenol may be taken for this soreness unless otherwise instructed by your physician. o If you think that the site may be infected, notify your physician. o If you have severe pain at the procedure site, a throbbing lump under the skin, numbness, loss offeeling or change in color of the extremity below the procedure site, notify your physician. o You may notice a drop or two of blood on the dressing, this is generally not a problem. If more significant bleeding occurs, put pressure on the site with your hand and seek medical attention immediately. o If a large lump is felt, if you have increased pain at the site, or if the bruise and/or lump areincreasing in size, notify your physician. o Extensive bleeding at the procedure site or a lump which is expanding quickly is an emergency. Call 911 for an ambulance to take you to the nearest emergency room. Lie down then apply firm pressuredirectly over the site, holding pressure until emergency personnel have arrived. Protect your new heart valve * Protective (or prophylactic) antibiotics may need to be taken prior to dental procedures, surgeryand some diagnostic tests and invasive procedures to prevent infection from developing around your new heart valve. Check with your physician prior to undergoing any procedure. * The type of valve you have is 23mm Edward Sapiens, please write this information down and carry it with you at all times. o Carry this information at all times and show it to any physician or dentist who treats you. o Consider obtaining some type of identification bracelet to inform medical personnel about your valve type. o If you need an MRI in the future, show this information to your provider to determine if the valve you received is MRI compatible. Follow Up * Be sure to come in for all scheduled follow up visits. * You will be seen in valve clinic: o One week post procedure o One month post procedure with an echocardiogram to check your new valve o Six months post procedure o One year post procedure with an echocardiogram to check you new valve o Yearly thereafter with echocardiograms * You should continue to have regular follow up with your Primary Care Provider o Schedule an appointment 1-2 weeks after discharge * You should have regular follow up with your primary patent agent who will continue to manage yourregular cardiac care. o Schedule an appointment approximately 3 months after discharge. Special Instructions: Please continue taking all other medications as previously prescribed. Cardiovascular RISK FACTOR control YOUR RISK FACTOR TREATMENT GOALS: Controlling the factors that cause arteries to form blockages will reduce your chance of having new blockages. Work with your health care providers to control your risk factors. If you have trouble reaching these goals then ask your health care provider to work with you further until they are controlled. Diabetes - In diabetics, hemoglobin A1C is a measure of the average blood sugar over the past 3 months. The goal is less than 7.0. Hypertension - Goal is less than 120/80. High cholesterol LDL cholesterol (bad cholesterol) - goal is less than 70 mg/dl. HDL cholesterol (good cholesterol) - goal is greater than 40 mg/dl in men and 50 mg/dl in women. Triglycerides (other blood fats that are especially elevated in diabetics and pre-diabetics) - goal is less than 150 mg/dl. Your Lipid Panel Results are: Results for orders placed or performed in visit on 05/11/15 LIPID PANEL Result Value Ref Range HOURS FASTING 12 hours Triglycerides 148 <200 mg/dL Cholesterol 154 <200 mg/dL HDL Cholesterol 44 >39 mg/dL Cholesterol-HDL Ratio 3.5 LDL Cholesterol 80 0 - 129 mg/dL Results for orders placed or performed in visit on 09/06/21 LIPID PANEL WITH DIRECT LDL IF TG IS HIGH Result Value Ref Range Triglycerides 127 <=174 mg/dL Cholesterol 129 <200 mg/dL HDL Cholesterol 51 >39 mg/dL Non-HDL Cholesterol 78 <=159 mg/dL LDL Cholesterol 53 <=129 mg/dL Tobacco - Tobacco is poison to your arteries. It will cause blockages. Continuing to smoke tobacco may lead to heart attacks, strokes, or leg amputation. You should avoid tobacco. Your goal is to notsmoke at all. Talk with your primary care provider about counseling and medications to help you stop smoking. Exercise - The [place] [employer] recommends walking 30 minutes a day most days of the week; if you have to lose weight you should walk 60-90 minutes a day. Remember that if you develop chestpain, you should stop what you are doing. Do not continue to exercise if you have chest pain. See your special activity instructions above. [place] weight - Your BMI (a measure of ideal body weight) is Body mass index is 30.27 kg/m.. Your BMI should be less than 25. Your waist size also predicts risk of heart attack: a woman's waist should be less than 35 inches and a man's waist less than 40. Maintaining your ideal body weight will help your heart, reduce blood pressure, blood sugar, and cholesterol, improve or help prevent diabetes, and improve or help prevent congestive heart failure. documented in this encounter Progress Notes * Pravin Thomas MD - 04/22/2023 7:14 AM EDT PROGRESS NOTE - Cardiology [facility] [place] [address] Name: Gregorio Davidson Location: [address] Date: 04/22/2023 Time: 7:14 AM SUBJECTIVE: NAOE. Patient offers no complaints. States his breathing has improved since procedure yesterday. Denies any chest pain, abdominal pain, nausea, vomiting, lightheadedness or dizziness. OBJECTIVE: Most Recent Vital Signs: BP: 112 mmHg/59 mmHg (04/22/23 0500) Pulse: 83 (04/22/23 0600) Temp: 37.28 C (04/22/23 0500) Resp: 18 (04/22/23 0500) SpO2: 94 % (04/22/23 0500) Vital Signs Last 24 Hours: Systolic BP: Most Recent Systolic BP Av.7 mmHg Min: 112 mmHg Max: 183 mmHg Temperature: Most Recent Temperature Av.4 C Min: 35.5 C Max: 37.28 C Pulse: Pulse Av Min: 56 Max: 98 Respirations: Resp Av.6 Min: 14 Max: 23 SpO2: SpO2 Av.1 % Min: 88 % Max: 100 % Constitutional: no acute distress HEENT: normal: normocephalic, atraumatic; no masses, tenderness, or adenopathy CV: normal rate and rhythm, no murmur, gallops or rub Chest: normal respiratory effort, lungs clear to auscultation and percussion Abdomen: normal: soft, bowel sounds normal, no masses, tenderness or organomegaly Extremities: no edema Skin: warm, dry: Psych: normal mood and affect LABS: Labs reviewed as indicated below: CBC Results: Results for orders placed or performed during the hospital encounter of 04/21/23 CBC Result Value Ref Range WBC 7.14 4.00 - 10.80 K/uL RBC 2.92 4.50 - 5.25 M/uL HGB 9.1 (L) 14.0 - 16.8 g/dL HCT 28.2 (L) 40.0 - 48.4 % MCV 96.6 82.0 - 99.5 fL MCH 31.2 27.0 - 34.0 pg MCHC 32.3 32.0 - 36.0 g/dL RDW 14.8 11.5 - 15.5 % PLT 78 (L) 140 - 400 K/uL MPV 10.1 6.6 - 11.1 fL nRBCs 0 <=0 /100 WBCs Basic Panel Results: Results for orders placed or performed during the hospital encounter of 04/21/23 BASIC METABOLIC PANEL Result Value Ref Range BUN 44 (H) 6 - 20 mg/dL Creatinine 2.1 (H) 0.6 - 1.2 mg/dL Estimated Glomerular Filtration Rate 30 (L) >=60 mL/min Sodium 139 135 - 146 mmol/L Potassium 4.8 3.5 - 5.1 mmol/L Chloride 105 98 - 107 mmol/L CO2 23 22 - 32 mmol/L Anion Gap 11 7 - 15 mmol/L Glucose 141 (H) 70 - 120 mg/dL Calcium 8.1 (L) 8.4 - 10.2 mg/dL IMPRESSION and PLAN: Principal Problem: S/P TAVR (transcatheter aortic valve replacement) POA: Unknown Active Problems: Dyslipidemia, goal LDL below 100 POA: Yes Steatohepatitis, non-alcoholic POA: Yes S/P AVR POA: Yes HTN, goal below 140/90 POA: Yes Hypertensive kidney disease with stage 3 chronic kidney disease (HCC) POA: Yes Type 2 diabetes mellitus with hemoglobin A1c goal of less than 8.0% (HCC) POA: Yes Chronic atrial fibrillation (HCC) POA: Yes POA = Present On Admission Severe Aortic Stenosis s/p Aortic Valve replacement 2013 S/p TAVR #23 Ricci Minesh TAVR POD#1 S/p Temporary Pacing Wire - left in place post-procedure due to bradycardia Successful transfemoral implantation of a #23 Ricci Minesh TAVR No post operative bleeding/pseudoaneurysm development Diet: May have clears right away if safely able to swallow Heart healthy/ regular/ consistent carb diet after six hours when safely able to sit up Goal SBP < 160, currently maintaining 110s-140s on WELDING TESTER Hydralazine 5 mg BID Holding WELDING TESTER Coreg EKG this morning Monitor on telemetry for significant change in [place] interval, QRS duration and rhythm as well as evidence of paced beats. 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 Thomas, attending physician. * Breonna Moreno MD - 04/21/2023 11:45 AM EDT Patient seen and examined pre procedure. The patient has been reporting significant increase in shortness of breath . NT pro BNP measured prior to the procedure was elevated at 3869 Consistent with acute on chronic diastolic heart failure due to severe . Would treat with intravenous diuretics - administered 80 mg IV lasix in the labor conciliator. Breonna Moreno MD MPH Interventional Cardiology Pager: [phone] 04/21/23 11:46 AM documented in this encounter H&P Notes * Pravin Thomas MD - 04/21/2023 11:35 AM EDT GENERAL HISTORY & PHYSICAL EXAMINATION - Cardiology [address] [id number] Name: Gregorio Davidson Location: [address] Date: 04/21/2023 Time: 11:35 AM PRESENTING PROBLEM: s/p TAVR HPI: Gregorio Davidson is an 82 year-old male admitted to the cardiology service for observation after undergoing TAVR for severe symptomatic bioprosthetic aortic valve stenosis. The patient was evaluated s/p TAVR 04/21. He offers no complaints. Denies any dizziness, headache, chest discomfort, shortness of breath, abdominal pain, nausea or vomiting. States his throat feels sore. Cardiac Hx: Aortic valve disease, severe calcific aortic valve stenosis status post May 2014 aortic valve replacement with a [address] Jewel Trifecta bioprosthesis. Cardiac catheterization 03/13/2023 no obstructive disease Atrial fibrillation- not on AC due to bleeding ulcer CHADSVASC 6 (age, DM, HTN, HF, CAD) SANDI on CPAP Most recent TTE 60% 02/25/2023 Type 2 Diabetes Mellitus HTN/HLD CKD Stage IIIb DE LA CRUZ cirrhosis Cardiac Studies: Echo 02/25/2023 The left ventricular cavity size is normal. [...] although peak aortic valve velocities have decreased Ao V2 max: 304.8 cm/sec Ao mean P.8 mmHg NOAH(I,D): 1.1 cm2 Echo 06/2022 The examination is adequate to [...] Ao mean P.1 mmHg NOAH(I,D): 0.85 cm2 PAST MEDICAL HISTORY: Past Medical History: Diagnosis Date Aortic valve [...] dm Sleep apnea Obstructive Steatohepatitis, non-alcoholic 03/13/2010 PAST SURGICAL HISTORY: Past Surgical History: Procedure Laterality Date COLONOSCOPY 06/05/2007 Diverticulosis, repeat 10 yrs CORONARY ANGIOGRAPHY W/LEFT HEART CATH N/A 03/13/2023 CORONARY ANGIOGRAPHY W/LEFT HEART CATH performed by Breonna Moreno MD at CARDIAC LABS [facility] EGD, FLEXIBLE, DIAGNOSTIC N/A 12/16/2022 [facility], EGD , non-bleeding gastric ulcer (Ld Class III) / biopsies shows mild to moderate inflammation / MISCELLANEOUS ORDER ([facility] ONLY) 09/04/2003 Roeshot/ bilateral quad rupture repair and repeat x 1 OTHER 05/06/2007 Sekula/ laser vaporizationof prostate REPAIR INITIAL INCISIONAL OR VENTRAL HERNIA; REDUCIBLE Left REPLACEMENT AORTIC VALVE, BYPASS WITH PROSTHETIC VALVE 05/16/2014 REPLACEMENT AORTIC VALVE performed by Jacob Crane MD at OR [facility] FAMILY HISTORY: Family History Problem Relation Age of Onset Musculo-skeletal Disorder Mother brittle bones Lung Disorder Father asthma Heart Disorder Brother CABG 2013 Other (CKD, ESRD) None SOCIAL HISTORY: Social History Tobacco Use Smoking status: Never Smokeless tobacco: Never Vaping Use Vaping Use: Never used Substance Use Topics Alcohol use: Yes Comment: a few drinks/month Drug use: No CURRENT HOSPITAL MEDICATIONS: Note that completed medications (per SEP) continue to display for 24 hours. Ordered medications to be given in the future also display. Current Facility-Administered Medications Medication Dose Route Frequency Provider Acetaminophen (Tylenol) tab 975 mg 975 mg Oral Q6H Sierra Augustine MD magnesium sulfate 1 g in d5w 100mL LOCKED DOSE 1 g IV Piggyback Q1H Sierra Augustine MD NSS infusion Intravenous Continuous ANKUR Walden sodium chloride 0.9 % flush peripheral deacon 3 mL 3 mL IV Push Q Shift Sierra Augustine MD ALLERGIES: Jardiance [empagliflozin] and Felodipine PHYSICAL EXAMINATION: Most Recent Vital Signs: BP: (P) 172 mmHg/62 mmHg (04/21/23 1135) Pulse: 59 (04/21/23 1135) Temp: 35.5 C (04/21/23 1105) Resp: 15 (04/21/23 1135) SpO2: 100 % (04/21/23 1135) Constitutional: no acute distress, (+) chronically ill HEENT: normocephalic, atraumatic CV: S1 S2, RRR Abdomen: normal: soft, bowel sounds normal, no masses, tenderness or organomegaly Extremities: no edema Skin: warm, dry: Psych: normal mood and affect LABS: Labs reviewed as indicated below: CBC Results: Results for orders placed or performed in visit on 04/06/23 CBC Result Value Ref Range WBC 5.43 4.00 - 10.80 K/uL RBC 3.51 4.50 - 5.25 M/uL HGB 10.9 (L) 14.0 - 16.8 g/dL HCT 34.5 (L) 40.0 - 48.4 % MCV 98.3 82.0 - 99.5 fL MCH 31.1 27.0 - 34.0 pg MCHC 31.6 32.0 - 36.0 g/dL RDW 15.2 11.5 - 15.5 % PLT 87 (L) 140 - 400 K/uL MPV 10.6 6.6 - 11.1 fL nRBCs 0 <=0 /100 WBCs Basic Panel Results: Results for orders placed or performed during the hospital encounter of 04/21/23 BASIC METABOLIC PANEL Result Value Ref Range BUN 48 (H) 6 - 20 mg/dL Creatinine 2.1 (H) 0.6 - 1.2 mg/dL Estimated Glomerular Filtration Rate 30 (L) >=60 mL/min Sodium 140 135 - 146 mmol/L Potassium 4.3 3.5 - 5.1 mmol/L Chloride 104 98 - 107 mmol/L CO2 27 22 - 32 mmol/L Anion Gap 9 7 - 15 mmol/L Glucose 142 (H) 70 - 120 mg/dL Calcium 8.4 8.4 - 10.2 mg/dL IMPRESSION and PLAN: Principal Problem: S/P TAVR (transcatheter aortic valve replacement) POA: Unknown Active Problems: Dyslipidemia, goal LDL below 100 POA: Yes Overview: Per Lipid Taxonomy. Steatohepatitis, non-alcoholic POA: Yes S/P AVR POA: Yes HTN, goal below 140/90 POA: Yes Hypertensive kidney disease with stage 3 chronic kidney disease (HCC) POA: Yes Type 2 diabetes mellitus with hemoglobin A1c goal of less than 8.0% (HCC) POA: Yes Chronic atrial fibrillation (HCC) POA: Yes POA = Present On Admission Severe Aortic Stenosis s/p Aortic Valve replacement 2013 S/p TAVR #23 Ricci Minesh TAVR S/p Temporary Pacing Wire - left in place post-procedure due to bradycardia Successful transfemoral implantation of a #23 Ricci Minesh TAVR Activity Bedrest/lay flat for 6 hours post TAVR Vital checks q15min x4, q30 min x4, q1h x4, then q4h Nursing protocol post procedure with groin monitoring and neuro checks q1h x6 Diet: May have clears right away if safely able to swallow Heart healthy/ regular/ consistent carb diet after six hours when safely able to sit up Goal SBP < 160 Plan to restart WELDING TESTER oral antihypertensives at night or in AM (WELDING TESTER Hydralazine) Treat only systolic blood pressure greater than 160, prn IV hydralazine EKG post-op and tomorrow Monitor on telemetry for significant change in [place] interval, QRS duration and rhythm as well as evidence of paced beats. Holding WELDING TESTER Coreg CXR now and in AM TTE in AM for POD#1 ordered Continue with WELDING TESTER Asa 81 mg daily Continue with WELDING TESTER Plavix Acute HFpEF 2/2 Severe noted on presentation Administered lasix 80 mg IV in the labor conciliator Continue to monitor fluid status Strict I/Os Chronic Problems: Atrial fibrillation- not on AC due to bleeding ulcer: Hold WELDING TESTER Coreg CHADSVASC 6 (age, DM, HTN, HF, CAD) SANDI on CPAP: NIV HS Most recent TTE 60% 02/25/2023 Type 2 Diabetes Mellitus: MD ACOSTA The patient will be seen and discussed with Dr. Thomas, attending physician. I saw and evaluated the patient today. I have reviewed the trainee note and agree. * ANKUR Foreman - 04/21/2023 7:09 AM EDT HISTORY & PHYSICAL INTERVAL NOTE - Cardiology Service [address] [id number] History and Physical Update: Name: Gregorio Davidson Location: CATH/Cath Date: 04/21/2023 Time: 7:09 AM DATE OF HISTORY AND PHYSICAL: 04/06/2023 REFERRED BY: Drs. Moreno and Pricila Chief Complaint: severe symptomatic bioprosthetic AV stenosis I have reviewed the H&P previously performed and examined the patient today. There are no new findings noted. Physical Examination: BP: 164 mmHg/83 mmHg (04/21/23630) Pulse: 74 (04/21/23630) Temp: 36.28 C (04/21/23630) Resp: 18 (04/21/23630) SpO2: 99 % (04/21/23630) Cardiac: Irregular rhythm. There is a 2/6 early systolic murmur best heard at the uRSB. No gallop or rub appreciated. Lungs: CTAB Right Radial pulse 1+ Allens test (right hand): delayed rubor Right Femoral pulse 2+ Right Femoral Bruit no Right PT pulse 1+ Left Femoral pulse 2+ Left Femoral Bruit no Left PT pulse 1+ IV Contrast Allergy: no Contraindications to dual anti-platelet therapy: No History of anemia: Yes ASA: Received ASA 81 mg, clopidogrel 75 mg Anticoagulation: No Labs reviewed as indicated below: Hgb: Pending GFR / sCr: 34 /1.9 Pre-Cath Labs: Pending as above * ANKUR Walden - 04/20/2023 8:04 AM EDT This note has been copy and pasted from an office visit with ANKUR Rodrigues, of Cardiology on 04/06/23. Nick Edwards MD Follow up; CC:Here today to discuss upcoming valve procedure. HX: Aortic valve disease, severe calcific aortic valve stenosis status post May 2014 aortic valve replacement with a [address] Jewel Trifecta bioprosthesis. Cardiac catheterization 03/14/2014 without obstructive disease on coronary angiography. Obstructive sleep apnea on CPAP . Type II diabetes mellitus Hypertension. Hyperlipidemia. Stage IIIb chronic renal insufficiency. Recurrent right pneumothorax, spontaneous Steatohepatitis, DE LA CRUZ cirrhosis Gout Diverticulosis Vitamin D deficiency Bilateral quad rupture and repair x 2. Left incisional hernia repair. AVR. Status post laser vaporization of the prostate in 05/2007. Atrial fibrillation- not on AC due to bleeding ulcer CHADSVASC 6 (age, DM, HTN, HF, CAD) Here today to plan for up coming TAVR. Last clinic visit was in February, he has been evaluated by CVsurgery and TAVR was recommended. Feeling good. Now with increased dyspnea with exertion. Able to perform ADLs. Able to riding mow the grass. Increase in Lasix with improvement in edema. Last dentist appt was 6 months ago. Echo 02/25/2023 The left ventricular cavity size is normal. [...] although peak aortic valve velocities have decreased Ao V2 max: 304.8 cm/sec Ao mean P.8 mmHg NOAH(I,D): 1.1 cm2 Echo 06/2022 The examination is adequate to [...] the severity the prosthetic stenosis has progressed. Past Medical History: Diagnosis Date Aortic valve [...] dm Sleep apnea Obstructive Steatohepatitis, non-alcoholic 03/13/2010 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 Vitamin D deficiency E55.9 S/P AVR Z95.2 HTN, goal below 140/90 [...] E11.9 Other cirrhosis of liver (HCC) K74.69 Past Surgical History: Procedure Laterality Date COLONOSCOPY 06/05/2007 Diverticulosis, repeat 10 yrs CORONARY ANGIOGRAPHY W/LEFT HEART CATH N/A 03/13/2023 CORONARY ANGIOGRAPHY W/LEFT HEART CATH performed by Breonna Moreno MD at [facility] EGD, FLEXIBLE, DIAGNOSTIC N/A 12/16/2022 [facility], EGD , non-bleeding gastric ulcer (Ld Class III) / biopsies shows mild to moderate inflammation / MISCELLANEOUS ORDER ([facility] ONLY) 09/04/2003 Roeshot/ bilateral quad rupture repair and repeat x 1 OTHER 05/06/2007 Sekula/ laser vaporizationof prostate REPAIR INITIAL INCISIONAL OR VENTRAL HERNIA; REDUCIBLE Left REPLACEMENT AORTIC VALVE, BYPASS WITH PROSTHETIC VALVE 05/16/2014 REPLACEMENT AORTIC VALVE performed by Jacob Crane MD at OR [facility] Social History Tobacco Use Smoking status: Never Smokeless tobacco: Never Vaping Use Vaping Use: Never used Substance Use Topics Alcohol use: Yes Comment: a few drinks/month Drug use: No Review of patient's allergies indicates: Allergen Reactions Jardiance [Empagliflozin] Diarrhea Felodipine plendil Current Outpatient Medications Medication Sig Dispense Refill [...] Tablet in the evening. 60 Tablet 5 No current facility-administered medications for this visit. ROS: Constitutional: (-) fever chills sweats or weight loss Cardiovascular: (+) exertional dyspnea Pulmonary: (+) dyspnea with exertion Abdominal/GI: (-) negative: no pain, heartburn, dysphagia, bleeding, change in bowel habits, nauseaor vomiting Musculoskeletal: (-) negative: no pain Skin: (-) negative: no rash or new or changing moles Neurology: (-) negative: no focal neurologic defect OBJECTIVE: BP 112/56 (BP Site: Left Arm, BP Position: Sitting, BP Cuff Size: Regular) | Pulse 76 | Ht 1.803 m (5' 11") | Wt 98.5 kg (217 lb 3.2 oz) | SpO2 97% | BMI 30.29 kg/m | BSA 2.22 m Physical Exam: General: no acute distress, alert and oriented, and stated age Teeth: teeth present without obvious periodontal disease Neck: supple, no bruits, normal jugular venous pulse, no hepatojugular reflux Chest: normal shape and normal respiratory effort Lungs: lungs clear to auscultation Cardiac Exam: regular rate & rhythm A systolic murmur is present - holosystolic, radiation to the neck Pulses: The following pulses are normal: carotids, radials, and posterior tibials Abdomen: abdomen soft, non-tender, no hepatosplenomegaly, and normal active bowel sounds Musculoskeletal: no gait disturbance Extremities: no edema Skin: skin color, texture, turgor are normal, no rashes or significant lesions Neuro: grossly normal exam ICD-10-CM 1. Nonrheumatic aortic valve stenosis I35.0 2. HTN, goal below 140/90 I10 3. Chronic atrial fibrillation (HCC) I48.20 Here today to plan for upcoming TAVR on 04-09-2023. He is no longer taking Eliquis due to GI bleeds and epistaxis. I spent a total of 40-54 minutes (exact time 45 mins) on the date of service in preparation, delivery, and documentation of the care provided to Gregorio Davidson excluding any time spent in the performance of separately billed services. ANKUR [facility], [place] [id number] 04/06/2023 documented in this encounter Procedure Notes * Earl Decker DO - 04/22/2023 4:45 AM EDTAssociated Order(s): EKG REASON FOR STUDY: POD day 2 TAVR CONCLUSIONS: Atrial fibrillation Nonspecific T wave abnormality When compared with ECG of 21-APR-2023 11:44, No significant change was found Ventricular Rate: 82 QRS Duration: 86 QT/QTc: 410/479 ms P-R-T Independence: 0 : 47 : 31 degrees * Breonna Moreno MD - 04/21/2023 11:49 AM EDT Gregorio Davidson [id number] 04/21/23 TRANSCATHETER AORTIC VALVE REPLACEMENT STAFF PHYSICIANS: 1. Dr. Moreno 2. Dr. Lewis The attending physicians were present for the following: Vascular access Catheter placement Diagnostic Intervention Device implantation Vascular closure Intraprocedural medication ordering ASSISTING PHYSICIANS: 1. None INDICATION FOR PROCEDURE: Severe Symptomatic Aortic Stenosis PROCEDURES: Successful transfemoral implantation of a # 23 mm Ricci Minesh S3 Ultra valve Placement of temporary venous pacemaker Arterial access site closure with single Perclose Proglide devices Selective angiography of the right common iliac artery Unsuccessful attempt at BASILICA PROCEDURAL DETAILS: The patient was counseled extensively regarding the risks, benefits, and alternatives to the procedure and after answering all questions, the patient yielded informed consent. Thepatient was thereafter brought to the operative suite and general anesthesia care was delivered. Preprocedural antibiotic was administered intravenously. Sterile technique was used throughout the case. All vascular access was obtained using modified Seldinger technique. 7F sheath was placed in the right femoral vein. 7 F sheath was placed in the left femoral artery (hence referred to as contralateral access side). 6F sheath was placed in the right femoral artery (hence referred to as valve access side). Next, a temporary pacing wire was placed in the right ventricle via the sheath in the femoral vein. The valve access site was the right femoral artery. The 6F sheath in the access side was removed and the arteriotomy was preclosed with one Perclose Proglide devices. After preclosure, the access site was upsized directly to a 14 F delivery sheath over a Lunderquist wire. Through the sheath, the valve was crossed using an AL1 catheter and straight wire. This was then exchanged for V18 wire and a 6 Finnish multipurpose guide. We then positioned 20 mm snare in the left ventricular outflow tract. After that we advanced 7 Finnish al 2 guide catheter and positioned it intothe left cusp. Using a fine cross and 20 g a statin wire, wee tried to cross the left cusp leafletwith 50 w energy. Despite many attempts we were unable to cross the leaflet. We then tried an AL1 guiding catheter and an AL 3 guiding catheter. Even though we were deep into the left coronary cusp, we were unable to cross through the leaflet into the LVOT. At this point we abandoned this strategy and proceeded with placement of a Ricci Minesh valve using snorkel stent technique. We positioned the 6 Finnish JL 3.5 guide catheter into the left main trunk. We wired the left circumflex artery using run-through coronary wire. A 4 x 28 mm coronary stent was positioned into the circumflex. After that we proceeded with the transcatheter aortic valve replacement. Next, the Ricci-Minesh Commander delivery system with a mounted valve was delivered to the ascending aorta. After confirmingappropriate placement across the aortic valve using aortic root angiogaphy, the #23 mm Ricci-Minesh S3 Ultra valve was deployed with rapid ventricular pacing at 180 beats per minute. Following valve deployment, the transthoracic echocardiogram and aortic root angiography revealed a well-placed and well-seated valve, with no evidence of significant aortic regurgitation. Echo based gradient was 8mm hg. This was considered acceptable. After deployment and post-dilation of the valve, there was decent flow into the left coronary. we attempted to pull the stent out but were unable to pull it past the frame. We elected to deploy the prepositioned stent. The stent catheter was withdrawn till it was snore curled close to the top end of the valve frame. This stent was deployed at 16 atmospheres. We then post dilated the proximal portion of the stent using a 4 x 12 mm noncompliant balloon.. Next, the delivery catheter system was removed. The valve access artery device access site was successfully closed using the pre-deployed dual Perclose devices. A 5F DEV catheter was then used for non-selective angiography of the right iliofemoral system revealing normal flow without significant stenosis, dissection, or contrast extravasation. The contralateral femoral sheath was perclosed and the venous sheath were pulled and manual compression hemostasis applied. The patient tolerated the procedure well. The patient had slow AFib with heart rate dipping into the high 30s. We elected to put a temporary pacemaker wire as backup. We obtained access into the right internal jugular vein using ultrasound and fluoroscopy. We placed a 6 Finnish sheath. We placed a temporary pacemaker wire into the right ventricle through the sheath and secured it with sutures. Breonna Moreno MD MPH Interventional Cardiology Pager: [phone] 04/21/23 11:59 AM * Earl Decker DO - 04/21/2023 11:44 AM EDTAssociated Order(s): EKG REASON FOR STUDY: s/p tavr CONCLUSIONS: Atrial fibrillation with slow ventricular response Prolonged QT interval or tu fusion, consider myocardial disease, electrolyte imbalance, or drug effects When compared with ECG of 13-MAR-2023 10:38, No significant change was found Ventricular Rate: 56 QRS Duration: 98 QT/QTc: 500/482 ms P-R-T Independence: 0 : 62 : 62 degrees documented in this encounter Consult Notes * Molly Gar RN - 04/22/2023 9:28 AM EDTAssociated Order(s): CARE MANAGEMENT CONSULT IP; CARE MANAGEMENT CONSULT IP Please see ancillary tab for note from care management. documented in this encounter Nursing Notes * Katey Mims RN - 04/21/2023 8:[address] Monreal aware via tiger text that pt is refusing accu checks, there is a sling scale insulin order.She stated pt can refuse and document but offer accu checks. * Katey Mims RN - 04/21/2023 7:33 PM EDT Accu checks ordered. Pt refusing. Does not take any diabetic meds. States he was "poked" enough today and does not check them at home. Pt has CPAP at bedside. He will use call bedll when he is ready for sleep. * Miranda Vega RN - 04/17/2023 9:43 AM EDT Case was cancelled 04/09 and re-scheduled to 04/21/23, information moved forward. 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 DATE: 04/21/2023 PREOPERATIVE DIAGNOSIS: Aortic stenosis status post aortic valve replacement 2013 POSTOPERATIVE DIAGNOSIS: Same SURGEON: Jose Antonio Moreno MD ASSISTANTS: None 2 attending level physicians were co-surgeons for decision- making and equipment management ANESTHESIA: General endotracheal OPERATION: Attempted the silica, TAVR 23 Minesh 3 ultra [ Yoav ] FINDINGS: Aortic stenosis ESTIMATED BLOOD LOSS: 50 DRAINS: None FLUIDS: 500 mL Crystalloid URINE OUTPUT: Not measured SPECIMEN: None COMPLICATIONS: None CONDITION: Fair INDICATIONS AND HISTORY: A 2-year-old status post aortic valve replacement in 2013 developed progressive symptoms of recurrent aortic stenosis considered for valve in valve TAVR DESCRIPTION OF OPERATION: The patient was identified, and the procedure was verified. The patient was brought to the labor conciliator placed supine on the cath table after an adequate level of general endotracheal anesthesia was achieved lipase was prepped and draped to include both groins in a sterile operative field. 1% xylocaine without epinephrine had been infused create anesthetized salinas in both groins. The left common femoral artery along with the right common femoral artery and vein were then accessed using a Seldinger technique. The temporary pacing wire was passed through the right common femoral vein access catheter and positioned in the right ventricle with the use of fluoroscopy. The thresholds were tested and appreciated to be good. The left common femoral artery was then used for an access catheter positioned in the proximal ascending aorta the right common femoral artery was used for an access catheter which was passed across the aortic valve. The patient had been systemically heparinized attempts were made to pass and basilic the wire through the stenotic cusps of the previously placed aortic valve unsuccessfully. A coronary stent was placed in a snorkel type technique across the left main coronary artery. The 23 Minesh 3 ultra valve was then passed through the access catheter in the right common femoral artery. It was positioned across the aortic valve. And then with the use of rapid ventricular pacing after an adequate level of heparin anticoagulation had been achieved the valve was deployed without incident. Transesophageal echocardiography verified position function of the valve with trivial perivalvular leak. A temporary pacing wire was left because of bradycardia. Heparin was reversed with protamine. Percutaneous closure devices were used to assure hemostasis the cannulation sites were dressed sterilely. And the patient was taken to the PACU in stablesatisfactory condition Jose Antonio Lewis MD 04/21/2023 10:33 AM documented in this encounter Miscellaneous Notes * Ancillary Progress Note - Molly Gar RN - 04/22/2023 1:34 PM EDT ADULT CARE MANAGEMENT - DISCHARGE NOTE [facility]-[address] [address] Name: Gregorio Davidson Location: [facility] Date: 04/22/2023 Time: 1:34 PM The following coordination of care and discharge plan has been coordinated with the care team, patient, family and/or caregiver according to the patients needs and preferences. Discharge Discharge Insurance considerations verified and completed: Yes (04/22/231332) Second Notice Important Message from Medicare delivered: Not Applicable (04/22/231332) Discharge Transportation: Family/Friends drive (04/22/231332) Final D/C Plan - Complete at time of D/C Final Discharge Plan (Complete only at time of Discharge): Home - Self Care (04/22/231332) Destination - Admitted Since 04/21/2023 No services have been selected for the patient. Narrative: Pt discharging to home. No needs identified by CM. Family/friends anticipated to providedischarge transportation. Please contact CM with any concerns. * Ancillary Progress Note - Molly Gar RN - 04/22/2023 9:28 AM EDT CARE MANAGEMENT - ADULT INITIAL SCREENING [address] [address] Name: Gregorio Davidson Location: [facility] Date: 04/22/2023 Time: 9:28 AM Patient Class: Inpatient (04/22/23923) Discussed patient with the interdisciplinary care team. This Coating Manager performed a chart review and met with patient at bedside to complete admission screen and assessed needs for transition planning. The intensive care unit nurse role and services were explained and emotional support was provided. 30 Day Readmission Screening 30 Day Readmission Readmission within 30 days?: Yes, the previous hospital stay was at [facility] (04/22/23923) Chief Complaint: No chief complaint on file. Prior Living Arrangements What was your living situation prior to admission/observation?: Independently;With Spouse () Do you have any children, pets, or other dependents that you are currently caring for?: No (04/22/23923) Living Quarters: House (04/22/23923) How many stories is the dwelling?: One Story (04/22/23923) Number of steps to enter living quarters:: 2 (04/22/23923) Location of bathroom(s): All floors or Single story dwelling (04/22/23923) Do you have serious difficulty walking or climbing stairs? (5 years old or older): No (04/22/23923) History of falling: No (04/22/23752) Prior Level of Functioning Describe the patient's ability prior to admission/observation to perform ADLs: Performs independently (04/21/231934) Describe the patient's mobility status prior to admission: Patient ambulates independently (04/22/23923) Patient uses assistive device: No (04/22/23923) Caregiver Information Patient Contacts Name Relation Home Work Mobile Fernanda Davidson V Spouse [phone] Risk Stratification/Psychosocial/Care Gaps Risk Stratification Medical and Behavioral Health Concerns Identified: Major procedure within last year (04/22/23923) Psycho Social/Care Gaps concerns identified upon admission:: Adjustment to illness/injury () Readmission Risk Score: 16 (04/22/23923) AM-PAC Score With Stairs : 18 (04/22/23752) Comments: Spoke with patient, and discussed the following information regarding WELDING TESTER situation: - Lives with: - Lives in a/an: one story home - Bathrooms: main level - Steps to enter residence: 2 - Prescrition coverage: yes - no difficulty obtaining medications - [facility]acy: [facility] - Ambulates: Independently with no devices - Transportation: drives self - DME: CPAP - Home O2: none - DME supplier: [place] [employer] Patient - Prior home services: none - Prior Rehab/SNF stays: none - D/C needs identified at this time: No CM needs identified at this time. CM to continue to follow for discharge needs. Prior to Admission Services Services Prior to Admission WELDING TESTER Services (Services received within the last 30 days with exception, Psych within last two years): N/A (04/22/23923) WELDING TE[employer] Transportation (Services received within the last 30 days): Patient drives self (04/22/23923) Outpatient Coating Manager: no, not applicable Patient/Family Expectations: home Anticipated Disposition Plan & Post Acute Needs Anticipated Plan Anticipated Post-Acute Care needs identified: N/A (04/22/23923) For further screening information, please refer to the Care Management flow document. * Ancillary Progress Note - XENA Plasencia - 04/21/2023 10:59 AM EDT [address] [address] Ancillary Progress Note Patient Name: Gregorio Davidson Date: 04/21/2023 Patient will be escorted to [facility]. We performed a transfemoral approach for transcatheter aortic valve replacement. The right femoral artery, right femoral vein, left femoral artery, and right internal jugular vein were used for access with 16, 7, 7, and 6 Finnish sheaths respect ively. Manual pressure was held for 20 minutes and hemostasis was obtained on the venous site. The arterial sites were closed using Perclose devices. There is no hematoma and no ooze from the cath sites noted. CHG Tegaderm dressing applied to both femoral sites. StatSeal applied to jugular site. There were no complications during the case. Please see the MAR for the medications that were given. See Cath Procedure Log for patient vitals during the case. documented in this encounter Plan of Treatment Upcoming Encounters Date Type Specialty Care Team Description 04/29/2023 Office Visit Cardiology Jennifer Morse CRNP [address] [place] [address] 05/05/2023 Office Visit Nephrology Regina Alonso MD [address] [place] [address] 05/21/2023 Office Visit Family Medicine Nick Edwards MD [address] [place] [address] 06/05/2023 Laboratory Laboratory Gema Wolfe [address] [place] [address] 06/05/2023 Office Visit Cardiology Jennifer Morse CRNP [address] [place] [address] 06/23/2023 Office Visit Gastroenterology Rebekah Anguiano MD [address] [place] [address] 07/14/2023 Office Visit Sleep Disorders Sujey Vega DO [address] [place] [address] Scheduled Orders Name Type Priority Associated Diagnoses Orde r Schedule EKG EKG STAT Post-operative state One Time for 1 Occurrences starting 04/21/2023 until 04/21/2023 Scheduled Referrals Name Type Priority Associated Diagnoses Orde r Schedule CARDIAC REHAB REFERRAL OP Referral Within 30 days (routine) S/P TAVR (transcatheter aortic valve replacement) Ordered: 04/21/2023 Health Maintenance Due Date Last Done Comments Depression Screening 03/29/2021 03/29/2020 COVID-19 Vaccine (2022-08 4 season) 2023 05/21/2022, 04/03/2021, 09/14/2020, Additional history exists Zoster Vaccines Completed 08/25/2022, 05/07, 11/17/2012 Influenza Vaccine (FLU shot) Completed 05/2023, 04/10/2022, 04/15/2021, Additional history exists documented as of this encounter Medical Devices Implanted Type Area Gridcap Machine Operator Device Identifier Shelf Expiration Date Model / Serial / Lot Valve Heart Trifec Aortic 23mm - [id number] Implanted:Qty : 1 on 05/16/2014 at OR [facility] N/A: Aorta ST JEWEL : CARDIOVASCULAR 07/25/2015 TF-23A / [id number] / Stent Synergy Xd Mr [id number] - [id number] Implanted:Qty : 1 on 04/21/2023 by Breonna Moreno MD at CARDIAC LABS [facility] Vaughn Burton [id number] 10/14/2023 [id number] / / [id number] documented as of this encounter Procedures Procedure Name Priority Date/Time Associated Diagnosis Comments ECHO, COMPLETE (2D), TRANS-THORACIC Routine 04/22/2023 7:00 AM EDT S/P TAVR (transcatheter aortic valve replacement) BASIC METABOLIC PANEL STAT 04/22/2023 5:47 AM EDT CBC STAT 04/22/2023 5:47 AM EDT MAGNESIUM STAT 04/22/2023 5:47 AM EDT XR CHEST 1 VIEW Routine 04/22/2023 5:17 AM EDT HC ECG TRACING ONLY Routine 04/22/2023 4 :45 AM EDT Post-operative state ANEMIA REFLEX CHEMISTRY HOLD STAT 04/21/2023 1:05 PM EDT BASIC METABOLIC PANEL STAT 04/21/2023 1:05 PM EDT FOLIC ACID STAT 04/21/2023 1:05 PM EDT IRON SCREEN, INCLUDING TIBC STAT 04/21/2023 1:05 PM EDT CBC STAT 04/21/2023 1:05 PM EDT TSH STAT 04/21/2023 1:05 PM EDT MAGNESIUM STAT 04/21/2023 1:05 PM EDT FERRITIN STAT 04/21/2023 1:05 PM EDT VITAMIN B12 STAT 04/21/2023 1:05 PM EDT XR CHEST 1 VIEW STAT 04/21/2023 12:26 PM EDT HC ECG TRACING ONLY STAT 04/21/2023 1 1:44 AM EDT S/P TAVR (transcatheter aortic valve replacement) TRANSESOPHAGEAL ECHO (COMPLETE) Routine 04/21/2023 10:50 AM EDT Valvular heart disease ACT, POINT OF CARE HELEN 04/21/2023 10 :01 AM EDT BLOOD GAS WITH CHEMISTRY, POINT OF CARE [facility] 04/21/2023 9:26 AM EDT ACT, POINT OF CARE HELEN 04/21/2023 9: 26 AM EDT ACT, POINT OF CARE [facility] 04/21/2023 8: 43 AM EDT REPLACE AORTIC VALVE, PERCUTANEOUS FEMORAL 04/21/2023 7:21 AM EDT Aortic stenosis REPLACE AORTIC VALVE, PERCUTANEOUS FEMORAL 04/21/2023 7:21 AM EDT Aortic stenosis ANEMIA CBC STAT 04/21/2023 7:04 AM EDT DIFFERENTIAL, AUTOMATED STAT 04/21/20 7:04 AM EDT DIFFERENTIAL, AUTOMATED STAT 04/21/20 7:04 AM EDT RETICULOCYTE PANEL STAT 04/21/2023 7: 04 AM EDT BNP (NT-PROBNP) STAT 04/21/2023 7:04 AM EDT BASIC METABOLIC PANEL STAT 04/21/2023 7:04 AM EDT TYPE AND SCREEN STAT 04/21/2023 7:04 AM EDT MAGNESIUM Add-on 04/21/2023 7:04 AM EDT HC COMPATIBILITY ELECTRONIC CROSSMATCH STAT 04/21/2023 6:00 AM EDT EXTRA LIGHT BLUE TOP Routine 04/21/2023 5:57 AM EDT EXTRA TUBES Routine 04/21/2023 5:57 AM EDT CARDIAC CATHETERIZATION REPORT Routine 04/21/2023 documented in this encounter Results * ECHO, COMPLETE (2D), TRANS-THORACIC (04/22/2023 7:00 AM EDT) [facility] LEFT VENTRICULAR EJECTION FRACTION 60 % [facility] CARDIOLOGY 04/22/2023 6:28 AM EDT Sierra Augustine MD ECHOCARDIOLOGY [facility] CARDIOLOGY * MAGNESIUM (04/22/2023 5:47 AM EDT) [facility] Magnesium 1.8 1.5 - 2.6 mg/dL 04/22/2023 6:21 AM EDT LAB[facility]ATORY [facility] Blood Venous blood specimen / Unknown Venipuncture / Unknown 04/22/2023 5:47 AM EDT 04/22/2023 5:54 AM EDT Sierra Augustine MD LAB BLOOD ORDERA BLES [facility] [address] [place] [address] * (ABNORMAL) CBC (04/22/2023 5:47 AM EDT) [facility] WBC 7.14 4.00 - 10.80 K/uL 04/22/2023 6:01 AM EDT LAB[facility] RBC 2.92 4.50 - 5.25 M/uL 04/22/2023 6:01 AM EDT LAB[facility] HGB 9.1(L) 14.0 - 16.8 g/dL 04/22/2023 6:01 AM EDT [facility] HCT 28.2(L) 40.0 - 48.4 % 04/22/2023 6:01 AM EDT [facility] MCV 96.6 82.0 - 99.5 fL 04/22/2023 6:01 AM EDT [facility] MCH 31.2 27.0 - 34.0 pg 04/22/2023 6:01 AM EDT LAB[facility]ATORY [facility] MCHC 32.3 32.0 - 36.0 g/dL 04/22/2023 6:01 AM EDT LABORATORY [facility] RDW 14.8 11.5 - 15.5 % 04/22/2023 6:01 AM EDT LABORATORY GM PLT 78(L) 140 - 400 K/uL 04/22/2023 6:01 AM EDT LABORATORY GM MPV 10.1 6.6 - 11.1 fL 04/22/2023 6:01 AM EDT LABORATORY [facility] nRBCs 0 <=0 /100 WBCs 04/22/2023 6:01 AM EDT LABORATORY [facility] Blood Venous blood specimen / Unknown Venipuncture / Unknown 04/22/2023 5:47 AM EDT 04/22/2023 5:54 AM EDT Sierra Augustine MD LAB BLOOD ORDERA BLES Performing Organization Address City/State/[facility] Co de Phone Number LABORATORY [facility] [address] [place] [address] * (ABNORMAL) BASIC METABOLIC PANEL (04/22/2023 5:47 AM EDT) BUN 44(H) 6 - 20 mg/dL 04/22/2023 6:21 AM EDT LAB[facility]ATORY [facility] Creatinine 2.1(H) 0.6 - 1.2 mg/dL 04/22/2023 6:21 AM EDT LAB[facility]ATORY [facility] Estimated Glomerular Filtration Rate 30(L) >=60 mL/min 04/22/2023 6:21 AM EDT LAB[facility]ATORY [facility] Comment:eGFR is calculated b ased on the CKD-EPI 2020 equation Sodium 139 135 - 146 mmol/L 04/22/2023 6:21 AM EDT LAB[facility] Potassium 4.8 3.5 - 5.1 mmol/L 04/22/2023 6:21 AM EDT [facility] Chloride 105 98 - 107 mmol/L 04/22/2023 6:21 AM EDT [facility] CO2 23 22 - 32 mmol/L 04/22/2023 6:21 AM EDT [facility] Anion Gap 11 7 - 15 mmol/L 04/22/2023 6:21 AM EDT LABORATORY [facility] Glucose 141(H) 70 - 120 mg/dL 04/22/2023 6:21 AM EDT LABORATORY C Calcium 8.1(L) 8.4 - 10.2 mg/dL 04/22/2023 6:21 AM EDT LABORATORY [facility] Blood Venous blood specimen / Unknown Venipuncture / Unknown 04/22/2023 5:47 AM EDT 04/22/2023 5:54 AM EDT Sierra Augustine MD LAB BLOOD ORDERA BLES LABORATORY [facility] [address] [place] [address] * XR CHEST 1 VIEW (04/22/2023 5:17 AM EDT) Anatomical Region Laterality Modality Chest Computed Radiogr aphy 04/22/2023 7:22 AM EDT Impressions 04/22/2023 7:19 AM EDT IMPRESSION Stable small bilateral pleural effusions Narrative 04/22/2023 7:19 AM EDT EXAM XR CHEST 1 VIEW-04/22/2023 5:17 am HISTORY POD #1 S/P TAVR or Mitraclip COMPARISON Prior study from yesterday FINDINGS Lines and tubes: Trans venous pacing wire Lung volumes are normal. There is no focal consolidation. Stable small bilateral pleural effusions Cardiomediastinal silhouette is within normal limits. Status post TAVR The osseous structures are intact. Procedure Note Everett Blanca MD - 04/22/2023 EXAM XR CHEST 1 VIEW-04/22/2023 5:17 am HISTORY POD #1 S/P TAVR or Mitraclip COMPARISON Prior study from yesterday FINDINGS Lines and tubes: Trans venous pacing wire Lung volumes are normal. There is no focal consolidation. Stable small bilateral pleural effusions Cardiomediastinal silhouette is within normal limits. Status post TAVR The osseous structures are intact. IMPRESSION IMPRESSION Stable small bilateral pleural effusions Sierra Augustine MD RADIOLOGY (RAD G ENERAL) * EKG (04/22/2023 4:45 AM EDT) 04/22/2023 4:45 AM EDT Procedure Note Earl Decker, DO - 04/22/2023 4:45 AM EDT REASON FOR STUDY: POD day 2 TAVR CONCLUSIONS: Atrial fibrillation Nonspecific T wave abnormality When compared with ECG of 21-APR-2023 11:44, No significant change was found Ventricular Rate: 82 QRS Duration: 86 QT/QTc: 410/479 ms P-R-T [place]: 0 : 47 : 31 degrees Sierra Augustine MD EKG [facility] CARDIOLOGY * VITAMIN B12 (04/21/2023 1:05 PM EDT) Vitamin B12 802 232 - 1,245 pg/mL 04/21/2023 4:56 PM EDT LABORATORY [facility] Blood Venous blood specimen / Unknown Venipuncture / Unknown 04/21/2023 1:05 PM EDT 04/21/2023 1:13 PM EDT Jazzy PASCUAL LAB BLOOD ORDE MERLEMARILYNN LABORATORY [facility] [address] [place] [address] * FOLIC ACID (04/21/2023 1:05 PM EDT) Folic Acid 19.4 >4.5 ng/mL 04/21/2023 4:56 PM EDT LABORATORY [facility] Blood Venous blood specimen / Unknown Venipuncture / Unknown 04/21/2023 1:05 PM EDT 04/21/2023 1:13 PM EDT Jazzy PASCUAL LAB BLOOD ORDE MERLEMARILYNN Performing Organization Address City/[facility]/ZIP Co de Phone Number LABORATORY [facility] [address] [place] [address] * TSH (04/21/2023 1:05 PM EDT) TSH 3.53 0.27 - 4.20 uIU/mL 04/21/2023 4:56 PM EDT LAB[facility]ATORY [facility] Blood Venous blood specimen / Unknown Venipuncture / Unknown 04/21/2023 1:05 PM EDT 04/21/2023 1:13 PM EDT Jazzy PASCUAL LAB BLOOD ORDRobi BLOOMMARILYNN LABORATORY [facility] [address] [place] [address] * FERRITIN (04/21/2023 1:05 PM EDT) Pathologist [facility] Ferritin 96 30 - 400 ng/mL 04/21/2023 4:56 PM EDT LAB[facility]ATORY [facility] Blood Venous blood specimen / Unknown Venipuncture / Unknown 04/21/2023 1:05 PM EDT 04/21/2023 1:13 PM EDT Jazzy PASCUAL LAB BLOOD ORDRobi BLOOMMARILYNN Performing Organization Address [facility] Co de Phone Number LABORATORY [facility] [address] [place] [address] * IRON SCREEN, INCLUDING TIBC (04/21/2023 1:05 PM EDT) Pathologist [facility] Iron 92 45 - 176 ug/dL 04/21/2023 3:21 PM EDT LAB[facility]ATORY [facility] Iron Binding Capacity 282 250 - 425 ug/dL 04/21/2023 3:21 PM EDT LAB[facility]ATORY [facility] Transferrin Saturation Percent 33 15 - 55 % 04/21/2023 3:21 PM EDT LAB[facility] Blood Venous blood specimen / Unknown Venipuncture / Unknown 04/21/2023 1:05 PM EDT 04/21/2023 1:13 PM EDT Jazzy PASCUAL LAB BLOOD ORDRobi BLOOMMARILYNN LABORATORY [facility] [address] [place] [address] * (ABNORMAL) BASIC METABOLIC PANEL (04/21/2023 1:05 PM EDT) BUN 45(H) 6 - 20 mg/dL 04/21/2023 1:49 PM EDT LAB[facility]ATORY [facility] Creatinine 2.0(H) 0.6 - 1.2 mg/dL 04/21/2023 1:49 PM EDT LAB[facility]ATORY [facility] Estimated Glomerular Filtration Rate 32(L) >=60 mL/min 04/21/2023 1:49 PM EDT LAB[facility]ATORY [facility] Comment:eGFR is calculated b ased on the CKD-EPI 2020 equation Sodium 141 135 - 146 mmol/L 04/21/2023 1:49 PM EDT LAB[facility]ATORY [facility] Potassium 4.0 3.5 - 5.1 mmol/L 04/21/2023 1:49 PM EDT LAB[facility]ATORY [facility] Chloride 104 98 - 107 mmol/L 04/21/2023 1:49 PM EDT LAB[facility]ATORY [facility] CO2 28 22 - 32 mmol/L 04/21/2023 1:49 PM EDT LAB[facility]ATORY [facility] Anion Gap 9 7 - 15 mmol/L 04/21/2023 1:49 PM EDT LAB[facility]ATORY [facility] Glucose 132(H) 70 - 120 mg/dL 04/21/2023 1:49 PM EDT LAB[facility]ORY [facility] Calcium 8.4 8.4 - 10.2 mg/dL 04/21/2023 1:49 PM EDT LAB[facility] Blood Venous blood specimen / Unknown Venipuncture / Unknown 04/21/2023 1:05 PM EDT 04/21/2023 1:13 PM EDT Sierra Augustine MD LAB BLOOD ORDERA BLES LABORATORY [facility] [address] [place] [address] * MAGNESIUM (04/21/2023 1:05 PM EDT) Magnesium 1.8 1.5 - 2.6 mg/dL 04/21/2023 1:49 PM EDT LAB[facility]ATORY [facility] Blood Venous blood specimen / Unknown Venipuncture / Unknown 04/21/2023 1:05 PM EDT 04/21/2023 1:13 PM EDT Sierra Augustine MD LAB BLOOD ORDERA BLES LABORATORY [facility] [address] [place] [address] * (ABNORMAL) CBC (04/21/2023 1:05 PM EDT) Pathologist [facility] WBC 4.58 4.00 - 10.80 K/uL 04/21/2023 1:29 PM EDT LAB[facility]ATORY [facility] RBC 3.46 4.50 - 5.25 M/uL 04/21/2023 1:29 PM EDT LAB[facility]ATORY [facility] HGB 10.8(L) 14.0 - 16.8 g/dL 04/21/2023 1:29 PM EDT LAB[facility]ATORY [facility] HCT 34.2(L) 40.0 - 48.4 % 04/21/2023 1:29 PM EDT LABORATORY [facility] MCV 98.8 82.0 - 99.5 fL 04/21/2023 1:29 PM EDT LABORATORY [facility] MCH 31.2 27.0 - 34.0 pg 04/21/2023 1:29 PM EDT LABORATORY C MCHC 31.6 32.0 - 36.0 g/dL 04/21/2023 1:29 PM EDT LAB[facility]ATORY [facility] RDW 15.0 11.5 - 15.5 % 04/21/2023 1:29 PM EDT LABORATORY [facility] PLT 88(L) 140 - 400 K/uL 04/21/2023 1:29 PM EDT LAB[facility]ATORY [facility] MPV 9.8 6.6 - 11.1 fL 04/21/2023 1:29 PM EDT LAB[facility]ATORY [facility] nRBCs 0 <=0 /100 WBCs 04/21/2023 1:29 PM EDT LABORATORY GM Blood Venous blood specimen / Unknown Venipuncture / Unknown 04/21/2023 1:05 PM EDT 04/21/2023 1:13 PM EDT Sierra Augustine MD LAB BLOOD ORDERA BLES Performing Organization Address City/[facility]/ZIP Co de Phone Number LABORATORY [facility] [address] [place] [address] * ANEMIA REFLEX CHEMISTRY HOLD (04/21/2023 1:05 PM EDT) Blood Venous blood specimen / Unknown Venipuncture / Unknown 04/21/2023 1:05 PM EDT 04/21/2023 1:13 PM EDT Jazzysheila Ochoa Derek PASCUAL LAB BLOOD ORDE RABLES Performing Organization Address City/[facility]/ZIP Co de Phone Number LABORATORY [facility] [address] [place] [address] * XR CHEST 1 VIEW (04/21/2023 12:26 PM EDT) Anatomical Region Laterality Modality Chest Computed Radiogr aphy 04/21/2023 12:4 8 PM EDT Impressions 04/21/2023 12:46 PM EDT IMPRESSION Postop chest with pulmonary vascular congestion and small bilateral pleural effusions. Narrative 04/21/2023 12:46 PM EDT EXAM XR CHEST 1 VIEW-04/21/2023 12:26 pm HISTORY baseline initial xray after open heart surgery COMPARISON Chest radiograph 05/18/2020. TECHNIQUE Semi-upright AP view of the chest. FINDINGS Lines/Tubes/Devices: Right IJ transvenous pacing wire with tip projecting over the RV apex. TAVR in place. Median sternotomy wires. Lungs/Pleura: Diffuse haziness throughout the lungs with prominence of the pulmonary vasculature. Probable small bilateral pleural effusions. No discernible pneumothorax. Heart/Mediastinum: Size and contours are stable. Aortic atherosclerosis. Bones/Soft Tissues: Degenerative osseous changes. No acute osseous abnormality. Upper Abdomen: Visualized portions are unremarkable. Procedure Note Venkata Valencia MD - 04/21/2023 EXAM XR CHEST 1 VIEW-04/21/2023 12:26 pm HISTORY baseline initial xray after open heart surgery COMPARISON Chest radiograph 05/18/2020. TECHNIQUE Semi-upright AP view of the chest. FINDINGS Lines/Tubes/Devices: Right IJ transvenous pacing wire with tip projectingover the RV apex. TAVR in place. Median sternotomy wires. Lungs/Pleura: Diffuse haziness throughout the lungs with prominence of thepulmonary vasculature. Probable small bilateral pleural effusions. Nodiscernible pneumothorax. Heart/Mediastinum: Size and contours are stable. Aorticatherosclerosis. Bones/Soft Tissues: Degenerative osseous changes. No acute osseousabnormality. Upper Abdomen: Visualized portions are unremarkable. IMPRESSION IMPRESSION Postop chest with pulmonary vascular congestion and small bilateralpleural effusions. Sierra Augustine MD RADIOLOGY (RAD G ENERAL) * EKG (04/21/2023 11:44 AM EDT) 04/21/2023 11:4 4 AM EDT Procedure Note Earl Decker, DO - 04/21/2023 11:44 AM EDT REASON FOR STUDY: s/p tavr CONCLUSIONS: Atrial fibrillation with slow ventricular response Prolonged QT interval or tu fusion, consider myocardial disease,electrolyte imbalance, or drug effects When compared with ECG of 13-MAR-2023 10:38, No significant change was found Ventricular Rate: 56 QRS Duration: 98 QT/QTc: 500/482 ms P-R-T [place]: 0 : 62 : 62 degrees Jazzy PASCUAL EKG Performing Organization Address [facility]/ZIP Co de Phone Number [facility] CARDIOLOGY * TRANSESOPHAGEAL ECHO (COMPLETE) (04/21/2023 10:50 AM EDT) Pathologist [facility] LEFT VENTRICULAR EJECTION FRACTION 65 % [facility] CARDIOLOGY 04/21/2023 7:57 AM EDT Breonna Moreno MD ECHOCARDIOLOGY [facility] CARDIOLOGY * ACT, POINT OF CARE (04/21/2023 10:01 AM EDT) ACT 329 50 - 1,000 secs 04/21/2023 3:03 PM EDT [employer] Blood 04/21/2023 10:0 1 AM EDT 04/21/2023 3:03 PM EDT Narrative [facility] - 04/21/2023 3:03 PM EDT NORMAL (NON-HEPARINIZED) 74-137 SECONDS HEPARINIZED 200+ SECONDS CRITICAL GREATER THAN 1000 SECONDS Pravin Thomas MD LAB POINT OF CARE TEST DOCKED DEVICE UNSOLICITED RESULTS [facility] [address] [place] [address] * (ABNORMAL) BLOOD GAS WITH CHEMISTRY, POINT OF CARE (04/21/2023 9:26 AM EDT) Draw Site Arterial Draw 04/21/2023 3:51 PM EDT [facility] pH i-STAT 7.457(H) 7.350 - 7.450 04/21/2023 3:51 PM EDT [facility] pCO2 i-STAT 39.6 35.0 - 45.0 mm Hg 04/21/2023 3:51 PM EDT [facility] pO2 i-STAT 427(H) 75 - 100 mm Hg 04/21/2023 3:51 PM EDT [facility] Base Excess i-STAT 4(H) -2 - 2 mmol/L 04/21/2023 3:51 PM EDT [facility] Bicarbonate i-STAT 28.0 23.0 - 31.0 mmol/L 04/21/2023 3:51 PM EDT [facility] O2 Saturation i-STAT 100.0(H) 94.0 - 98.0 % 04/21/2023 3:51 PM EDT [facility] Glucose i-STAT 134(H) 70 - 120 mg/dL 04/21/2023 3:51 PM EDT [facility] Potassium i-STAT 3.7 3.5 - 5.1 mmol/L 04/21/2023 3:51 PM EDT [facility] Sodium i-STAT 141 135 - 146 mmol/L 04/21/2023 3:51 PM EDT [facility] Calcium Ionized i-STAT 1.11(L) 1.13 - 1.32 mmol/L 04/21/2023 3:51 PM EDT [employer] Hemoglobin i-STAT 8.8(L) 14.0 - 16.8 g/dL 04/21/2023 3:51 PM EDT [employer] Hematocrit i-STAT 26(L) 40 - 48 % 04/21/2023 3:51 PM EDT [employer] Arterial Draw 04/21/2023 9:2 6 AM EDT 04/21/2023 3:51 PM EDT Pravin Thomas MD LAB POINT OF CARE TEST DOCKED DEVICE UNSOLICITED RESULTS Performing Organization Address City/[facility]/ZIP Co de Phone Number [address] [address] * ACT, POINT OF CARE (04/21/2023 9:26 AM EDT) ACT 317 50 - 1,000 secs 04/21/2023 3:03 PM EDT [employer] Blood 04/21/2023 9:26 AM EDT 04/21/2023 3:03 PM EDT Narrative [employer] - 04/21/2023 3:03 PM EDT NORMAL (NON-HEPARINIZED) 74-137 SECONDS HEPARINIZED 200+ SECONDS CRITICAL GREATER THAN 1000 SECONDS Pravin Thomas MD LAB POINT OF CARE TEST DOCKED DEVICE UNSOLICITED RESULTS [place] [address] [place] [address] * ACT, POINT OF CARE (04/21/2023 8:43 AM EDT) ACT 401 50 - 1,000 secs 04/21/2023 3:51 PM EDT [employer] Blood 04/21/2023 8:43 AM EDT 04/21/2023 3:51 PM EDT Narrative [employer] - 04/21/2023 3:51 PM EDT NORMAL (NON-HEPARINIZED) 74-137 SECONDS HEPARINIZED 200+ SECONDS CRITICAL GREATER THAN 1000 SECONDS Pravin Thomas MD LAB POINT OF CARE TEST DOCKED DEVICE UNSOLICITED RESULTS Performing Organization Address City/[facility] Co de Phone Number [facility] [address] [place] [address] * MAGNESIUM (04/21/2023 7:04 AM EDT) Magnesium 1.7 1.5 - 2.6 mg/dL 04/21/2023 9:05 AM EDT LABORATORY [facility] Blood Venous blood specimen / Unknown Venipuncture / Unknown 04/21/2023 7:04 AM EDT 04/21/2023 7:09 AM EDT Breonna Moreno MD LAB BLOOD ORDERABLES Performing Organization Address [facility] de Phone Number LABORATORY [facility] [address] [place] [address] * (ABNORMAL) RETICULOCYTE PANEL (04/21/2023 7:04 AM EDT) Pathologist [facility] Reticulocyte Percent 2.33(H) 0.80 - 1.90 % 04/21/2023 7:45 AM EDT LABORATORY [facility] Absolute Reticulocyte 75.3 31.3 - 100.1 K/uL 04/21/2023 7:45 AM EDT LABORATORY [facility] Reticulocyte Hemoglobin 35.1 29.7 - 37.4 pg 04/21/2023 7:45 AM EDT LABORATORY [facility] Blood Venous blood specimen / Unknown Venipuncture / Unknown 04/21/2023 7:04 AM EDT 04/21/2023 7:09 AM EDT Jazzy PASCUAL LAB BLOOD ORDE RABLES Performing Organization Address [facility] Co de Phone Number LABORATORY [facility] [address] [place] [address] * DIFFERENTIAL, AUTOMATED (04/21/2023 7:04 AM EDT) Pathologist [facility] WBC 4.74 4.00 - 10.80 K/uL 04/21/2023 7:32 AM EDT [facility] Neutrophils % 63.6 40.0 - 75.0 % 04/21/2023 7:32 AM EDT [facility] Lymphocytes % 21.7 18.0 - 42.0 % 04/21/2023 7:32 AM EDT [facility] Monocytes % 9.5 1.0 - 11.0 % 04/21/2023 7:32 AM EDT [facility] Eosinophils % 4.6 0.0 - 6.0 % 04/21/2023 7:32 AM EDT [facility] Basophils % 0.4 0.0 - 2.0 % 04/21/2023 7:32 AM EDT [facility] Immature Granulocytes % 0.2 0.0 - 2.0 % 04/21/2023 7:32 AM EDT [facility] Absolute Neutrophils 3.01 1.80 - 7.70 K/uL 04/21/2023 7:32 AM EDT [facility] Absolute Lymphocytes 1.03 1.00 - 4.80 K/ul 04/21/2023 7:32 AM EDT [facility] Absolute Monocytes 0.45 0.00 - 1.10 K/uL 04/21/2023 7:32 AM EDT [facility] Absolute Eosinophils 0.22 0.00 - 0.70 K/uL 04/21/2023 7:32 AM EDT [facility] Absolute Basophils 0.02 0.00 - 0.20 K/uL 04/21/2023 7:32 AM EDT [facility] Absolute Immature Granulocytes 0.01 0.00 - 0.20 K/uL 04/21/2023 7:32 AM EDT [facility] Blood Venous blood specimen / Unknown Venipuncture / Unknown 04/21/2023 7:04 AM EDT 04/21/2023 7:09 AM EDT Jazzy PASCUAL LAB BLOOD MARIANGEL MARTINEZ [facility] Organization Address City/State/ZIP Co de Phone Number [facility] [address] [place] [address] * (ABNORMAL) ANEMIA CBC (04/21/2023 7:04 AM EDT) WBC 4.74 4.00 - 10.80 K/uL 04/21/2023 7:32 AM EDT [facility] RBC 3.19 4.50 - 5.25 M/uL 04/21/2023 7:32 AM EDT LABORATORY C HGB 10.1(L) 14.0 - 16.8 g/dL 04/21/2023 7:32 AM EDT [facility] Comment: Anemia reflex testing triggers on a HGB < 12.0 for Females and HGB < 13.0 for Males in accordance with the WHO Anemia Guidelines Anemia reflex testing triggers on a HGB < 12.0 for Females and HGB < 13.0 for Males in accordance with the WHO Anemia Guidelines HCT 31.3(L) 40.0 - 48.4 % 04/21/2023 7:32 AM EDT LABORATORY [facility] MCV 98.1 82.0 - 99.5 fL 04/21/2023 7:32 AM EDT LABORATORY [facility] MCH 31.7 27.0 - 34.0 pg 04/21/2023 7:32 AM EDT LABORATORY [facility] MCHC 32.3 32.0 - 36.0 g/dL 04/21/2023 7:32 AM EDT LABORATORY [facility] RDW 14.7 11.5 - 15.5 % 04/21/2023 7:32 AM EDT LABORATORY [facility] PLT 87(L) 140 - 400 K/uL 04/21/2023 7:32 AM EDT LABORATORY [facility] MPV 10.6 6.6 - 11.1 fL 04/21/2023 7:32 AM EDT LABORATORY [facility] nRBCs 0 <=0 /100 WBCs 04/21/2023 7:32 AM EDT LABORATORY [facility] Blood Venous blood specimen / Unknown Venipuncture / Unknown 04/21/2023 7:04 AM EDT 04/21/2023 7:09 AM EDT J[employer] PASCUAL LAB BLOOD MARIANGEL MARTINEZ LABORATORY [facility] [address] [place] [address] * TYPE AND SCREEN (04/21/2023 7:04 AM EDT) Pathologist [facility] ABO A 04/21/2023 7:48 AM EDT LABORATORY [facility] BLOOD BANK Rh Positive 04/21/2023 7:48 AM EDT LABORATORY [facility] BLOOD BANK Red Blood Cell Antibody Screen Negative 04/21/2023 7:48 AM EDT LABORATORY [facility] BLOOD BANK Specimen Expiration Date 04/24/2023 23:59 04/21/2023 7:48 AM EDT LABORATORY [facility] BLOOD BANK Blood Venous blood specimen / Unknown Venipuncture / Unknown 04/21/2023 7:04 AM EDT 04/21/2023 7:09 AM EDT Breonna Moreno MD LAB BLOOD BANK TEST ORDERABLES LABORATORY [facility] BLOOD BANK [address] [place] [address] * (ABNORMAL) BASIC METABOLIC PANEL (04/21/2023 7:04 AM EDT) BUN 48(H) 6 - 20 mg/dL 04/21/2023 7:41 AM EDT LABORATORY C Creatinine 2.1(H) 0.6 - 1.2 mg/dL 04/21/2023 7:41 AM EDT LABORATORY [facility] Estimated Glomerular Filtration Rate 30(L) >=60 mL/min 04/21/2023 7:41 AM EDT LABORATORY C Comment:eGFR is calculated b ased on the CKD-EPI 2020 equation Sodium 140 135 - 146 mmol/L 04/21/2023 7:41 AM EDT LABORATORY C Potassium 4.3 3.5 - 5.1 mmol/L 04/21/2023 7:41 AM EDT [facility] Chloride 104 98 - 107 mmol/L 04/21/2023 7:41 AM EDT [facility] CO2 27 22 - 32 mmol/L 04/21/2023 7:41 AM EDT [facility] Anion Gap 9 7 - 15 mmol/L 04/21/2023 7:41 AM EDT LABORATORY C Glucose 142(H) 70 - 120 mg/dL 04/21/2023 7:41 AM EDT [facility] Calcium 8.4 8.4 - 10.2 mg/dL 04/21/2023 7:41 AM EDT LABORATORY [facility] Blood Venous blood specimen / Unknown Venipuncture / Unknown 04/21/2023 7:04 AM EDT 04/21/2023 7:09 AM EDT Jazzy PASCUAL LAB BLOOD ORDRobi MARTINEZ Performing Organization Address [facility]/ZIP Co de Phone Number LABORATORY [facility] [address] [place] [address] * (ABNORMAL) BNP, NT-PRO (04/21/2023 7:04 AM EDT) Pathologist [facility] BNP, NT-Pro 3,869(H) <300 pg/mL 04/21/2023 7:41 AM EDT LABORATORY [facility] Blood Venous blood specimen / Unknown Venipuncture / Unknown 04/21/2023 7:04 AM EDT 04/21/2023 7:09 AM EDT Narrative LABORATORY [facility] - 04/21/2023 7:41 AM EDT Exclude Heart Failure: <300 pg/mL Diagnose Heart Failure: Age <50 yr: >450 pg/mL 50-75 yr: >900 pg/mL >75 yr: >1800 pg/mL GFR is 30-59 mL/min: >1200 pg/mL or Age-adjusted values GFR <30 mL/min: do not use, not reliable Prognostic threshold: 1000 pg/mL Jazzy PASCUAL LAB BLOOD MARIANGEL MARTINEZ Performing Organization Address City/[facility]/ZIP Co de Phone Number LABORATORY [facility] [address] [place] [address] * PREPARE PACKED RED BLOOD CELLS (04/21/2023 6:00 AM EDT) Pathologist [facility] Unit Product Code [id number] LABORATORY [facility] BLOOD BANK Unit Number [id number] LABO RATORY [facility] BLOOD BANK Unit ABO A LABORATORY [facility] BLOOD BANK Unit Rh POS LABORATORY [facility] BLOOD BANK Unit Crossmatch Compatible LABORATORY [facility] BLOOD BANK Unit Status RE LABORATO RY [facility] BLOOD BANK Unit Blood Type APOS LABORATORY [facility] BLOOD BANK Unit Expiration [id number] LABORATORY [facility] BLOOD BANK Unit Barcode 6200 LABORAT ORY [facility] BLOOD BANK Unit Product Code [id number] LABORATORY [facility] BLOOD BANK Unit Number [id number] LABO RATORY [facility] BLOOD BANK Unit ABO A LABORATORY [facility] BLOOD BANK Unit Rh POS LABORATORY [facility] BLOOD BANK Unit Crossmatch Compatible LABORATORY [facility] BLOOD [facility]ANK Unit Status RE LABORATO RY [facility] BLOOD BANK Unit Blood Type APOS LABORATORY [facility] BLOOD BANK Unit Expiration [id number] LABORATORY [facility] BLOOD BANK Unit Barcode 6200 LABORAT ORY [facility] BLOOD BANK 04/21/2023 6:00 AM EDT Breonna Moreno MD BLD BANK PRODUCT ORD ERABLES LABORATORY [facility] BLOOD BANK [address] [place] [address] * EXTRA LIGHT BLUE TOP (04/21/2023 5:57 AM EDT) Blood Venous blood specimen / Unknown 04/21/2023 5:57 AM EDT 04/21/2023 7:23 AM EDT Breonna Moreno MD LAB BLOOD ORDERABLES Performing Organization Address City/[facility]/ZIP Co de Phone Number LABORATORY [facility] [address] [place] [address] * CARDIAC CATHETERIZATION REPORT (04/21/2023) DATE OF PROCEDURE 04/21/2023 [facility] DIAGNOSTIC Breonna Cordova MD [facility] PROCEDURES TAVR - Replace Aortic Valve Perq No conscious sedation administered by cath/EP lab staff during this procedure. [facility] TOTAL CONTRAST VOLUME 70 ml [facility] TOTAL RADIATION 1.37 Gy [facility] COMPLICATIONS No complication None [facility] 04/21/2023 04/21/2023 2:1 2 PM EDT Breonna Moreno MD CARD CATH [facility] documented in this encounter Visit Diagnoses Diagnosis S/P TAVR (transcatheter aortic valve replacement)- Primary Heart valve replaced by other means S/P TAVR (transcatheter aortic valve replacement) Heart valve replaced by other means Valvular heart disease Endocarditis, valve unspecified, unspecified cause Post-operative state Other postprocedural status Encounter for examination for normal comparison and control in clinical research program [Z00.6 (ICD-10-CM)] Stenosis of other cardiac prosthetic devices, implants and grafts, initial encounter [T82.857A (ICD-10-CM)] Unspecified atrial fibrillation (HCC) Bradycardia, unspecified [R00.1 (ICD-10-CM)] Hypertensive kidney disease with stage 3 chronic kidney disease (HCC) Dyslipidemia, goal LDL below 100 Other and unspecified hyperlipidemia Steatohepatitis, non-alcoholic Other chronic nonalcoholic liver disease HTN, goal below 140/90 Unspecified essential hypertension Type 2 diabetes mellitus with hemoglobin A1c goal of less than 8.0% (HCC) Chronic atrial fibrillation (HCC) Atrial fibrillation S/P AVR Heart valve replaced by other means documented in this encounter Administered Medications Inactive Administered Medications - up to 3 most recent administrations Medication Order MAR Action Action Date Dose Rate Site aspirin enteric coated tab 81 mg 81 mg, Oral, Daily(AM), First dose on Thu04/22/23 at 0900, Until Discontinued Given 04/22/2023 8:07 AM EDT 81 mg clopidogrel (pLAVix) tab 75 mg 75 mg, Oral, Daily(AM), First dose on Thu04/22/23 at 0900, Until Discontinued Given 04/22/2023 8:07 AM EDT 75 mg dextrose 50 % inj 25 mL 25 mL, IV Push, PRN Hypoglycemia, Other, For blood glucose 54 - 69 mg/dL or 70 - 100 mg/dL with symptoms AND patient is unresponsive, NPO, OR unable to swallow, Starting on Thu04/21/23 at 1208, Until Thu04/22/23 at 1738, Administer IV. Recheck blood glucose after 15 minutes. Notify provider. dextrose 50 % inj 50 mL 50 mL, IV Push, PRN Hypoglycemia, Other, For blood glucose below 54 mg/dL AND patient unresponsive, NPO, OR unable to swallow, Starting on Thu04/21/23 at 1208, Until Thu04/22/23 at 1738, Administer IV. Recheck blood glucose in 15 minutes. Notify provider. glucagon (Glucagen) inj 1 mg 1 mg, Intramuscular, PRN Hypoglycemia, Other, If patient is unresponsive, or NPO and has no IV access, Starting on Thu04/21/23 at 1208, Until Thu04/22/23 at 1738, NPO and no IV access with either 1) blood glucose less than 100 mg/dL and symptomatic OR 2) blood glucose less than 70 mg/dL and asymptomatic Glucose (Glutose 15) 40 % gel 15 g of glucose 15 g of glucose, Oral, PRN Hypoglycemia (low sugar), Other, For blood glucose 54 - 69 mg/dL or 70 - 100 mg/dL with symptoms AND patient alert WITH difficulty chewing/swallowing, Starting on Thu04/21/23 at 1208, Until Thu04/22/23 at 1738, Administer gel. Recheck blood glucose after 15 minutes. Notify provider. 37.5 gram tube = 15 grams glucose = 1 each Glucose (Glutose 15) 40 % gel 30 g of glucose 30 g of glucose, Oral, PRN Hypoglycemia (low sugar), Other, For blood glucose below 54 mg/dL AND patient alert WITH difficulty chewing/swallowing, Starting on Thu04/21/23 at 1208, Until Thu04/22/23 at 1738, Administer gel. Recheck blood glucose after 15 minutes. Notify provider. 37.5 gram tube = 15 grams glucose = 1 each glucose chew tab 16 g 16 g, Oral, PRN Hypoglycemia, Other, For blood glucose 54 - 69 mg/dL or 70 - 100 mg/dL with symptoms and patient alert without difficulty chewing/swallowing., Starting on Thu04/21/23 at 1208, Until Thu04/22/23 at 1738 hydrALAZINE (Apresoline) tab 5 mg 5 mg, Oral, BID (.AM/PM), First dose (after last modification) on Thu04/21/23 at 1415, Until Discontinued, Hold for SBP below 100 and notify service if dose is held Given 04/22/2023 8:06 AM EDT 5 mg Given 04/21/2023 9:17 PM EDT 5 mg Given 04/21/2023 2:33 PM EDT 5 mg insulin aspart (NovoLOG) inj Subcutaneous, WITH MEALS, First dose on Thu04/21/23 at 1245, Until Discontinued, MEDIUM DOSE (Usual starting dose): Sliding Scale Correctional insulin may be given if the patient is NPO. Dose based on standard build from Insulin Calculator. Do not modify insulin doses in administration instructions! , Glucose less than 70 instructions: Obtain STAT lab blood glucose and call covering provider., Glucose 80-150 (units): 0, Glucose 151-200 (units): 2, Glucose 201-250 (units): 4, Glucose 251-300 (units): 6, Glucose greater than 300 (units): 8, Glucose greater than 300 instructions: Give suggested insulin dose and call covering provider. Ioversol (Optiray 350) 74 % inj 70 mL 70 mL, Intracoronary, ONCE, On Thu04/21/23 at 1130, For 1 dose, Intra-Op Given 04/21/2023 10:46 AM EDT 70 mL magnesium sulfate 1 g in d5w 100mL LOCKED DOSE 1 g, IV Piggyback, Q1H, 2 doses, First dose on Thu04/21/23 at 1200, Last dose on Thu04/21/23 at 1300, Administer over 60 Minutes, Total dose is 2g New Bag 04/21/2023 1:41 PM EDT 1 g 100 mL/hr New Bag 04/21/2023 12:37 PM EDT 1 g 100 mL/hr magnesium sulfate 1 g in d5w 100mL LOCKED DOSE 1 g, IV Piggyback, Q1H, 2 doses, First dose on Thu04/22/23 at 0800, Last dose on Thu04/22/23 at 0900, Administer over 60 Minutes, Total dose is 2g New Bag 04/22/2023 9:54 AM EDT 1 g 100 mL/hr New Bag 04/22/2023 8:16 AM EDT 1 g 100 mL/hr pantoprazole (Protonix) tab 40 mg 40 mg, Oral, BID (0700,1900), First dose on Thu04/21/23 at 1900, Until Discontinued, This med should NOT be Crushed or Chewed Given 04/22/2023 6:26 AM EDT 40 mg Given 04/21/2023 7:47 PM EDT 40 mg sodium chloride 0.9 % flush peripheral deacon 3 mL 3 mL, IV Push, QSHIFT, First dose on Thu04/21/23 at 1600, Until Discontinued, Do not flush if lock, PICC, or central line not in place; IV infusing or unable to flush., Post-op Given 04/22/2023 8 :13 AM EDT 3 mL Given 04/21/2023 10:56 PM EDT 3 mL Given 04/21/2023 4:00 PM EDT 3 mL documented in this encounter Active and Recently Administered Medications Times are shown in EDT. Scheduled Medication Order 04/20/2023 04/21/2023 04/22/2023 aspirin enteric coated tab 81 mg 81 mg, Oral, Daily(AM), First dose on Thu04/22/23 at 0900, Until Discontinued 08 (Given - Provid er: Shruthi Ennis RN) atorvaSTATin (Lipitor) tab 40 mg 40 mg, Oral, DAILY(1900), First dose on Thu04/22/23 at 1900, Until Discontinued ceFAZolin in dextrose (Ancef) ivpb 2 g (COMPLETED) 2 g, IV Piggyback, ONCE, 1 dose, On Thu04/21/23 at 0630, Pre-Op 0801 (Given - Provider: Fran Moran CRNA) clopidogrel (pLAVix) tab 75 mg 75 mg, Oral, Daily(AM), First dose on Thu04/22/23 at 0900, Until Discontinued 08 (Given - Provid er: Shruthi Ennis RN) hydrALAZINE (Apresoline) tab 5 mg 5 mg, Oral, BID (.AM/PM), First dose (after last modification) on Thu04/21/23 at 1415, Until Discontinued, Hold for SBP below 100 and notify service if dose is held 1433 (Given - Provider: Ingrid Nielson LPN)2117 (Given - Provider: Katey Mims RN - Comment: bp 118/97) 0806 (Given - Provider: Shruthi Ennis RN) insulin aspart (NovoLOG) inj Subcutaneous, WITH MEALS, First dose on Thu04/21/23 at 1245, Until Discontinued, MEDIUM DOSE (Usual starting dose): Sliding Scale Correctional insulin may be given if the patient is NPO. Dose based on standard build from Insulin Calculator. Do not modify insulin doses in administration instructions! , Glucose less than 70 instructions: Obtain STAT lab blood glucose and call covering provider., Glucose 80-150 (units): 0, Glucose 151-200 (units): 2, Glucose 201-250 (units): 4, Glucose 251-300 (units): 6, Glucose greater than 300 (units): 8, Glucose greater than 300 instructions: Give suggested insulin dose and call covering provider. 1245 (Not Given - Provider: Ingrid Nielson LPN - Reason: Parameter(s) Not Met)1700 (Not Given - Provider: Ingrid Nielson LPN - Reason: NPO)2204 (Not Given - Provider: Katey Mims RN - Reason: Refused-Notify Provider - Comment: pt refusing accu checks and insulin, Dr Monreal aware, to cont to offer accu checks) 0800 (No Insulin - Provider: Shruthi Ennis RN - Reason: Parameter(s) Not Met - Comment: BG 141 on AM labs)1200 (Due) Ioversol (Optiray 350) 74 % inj 70 mL (COMPLETED) 70 mL, Intracoronary, ONCE, On Thu04/21/23 at 1130, For 1 dose, Intra-Op 1046 (Given - Provider: XENA Brewer) magnesium sulfate 1 g in d5w 100mL LOCKED DOSE (COMPLETED) 1 g, IV Piggyback, Q1H, 2 doses, First dose on Thu04/21/23 at 1200, Last dose on Thu04/21/23 at 1300, Administer over 60 Minutes, Total dose is 2g 1237 (New Bag - Provider: Ingrid Nielson LPN)1341 (New Bag - Provider: Ingrid Nielson LPN) magnesium sulfate 1 g in d5w 100mL LOCKED DOSE (COMPLETED) 1 g, IV Piggyback, Q1H, 2 doses, First dose on Thu04/22/23 at 0800, Last dose on Thu04/22/23 at 0900, Administer over 60 Minutes, Total dose is 2g 0816 (New Bag - Provider: Shruthi Ennis RN)0954 (New Bag - Provider: Shruthi Ennis RN) pantoprazole (Protonix) tab 40 mg 40 mg, Oral, BID (0700,1900), First dose on Thu04/21/23 at 1900, Until Discontinued, This med should NOT be Crushed or Chewed 1946 (Given - Provider: Katey Mims, RN) 06 (Given - Provider: Katey Mims, RN) sodium chloride 0.9 % flush peripheral deacon 3 mL 3 mL, IV Push, QSHIFT, First dose on Thu04/21/23 at 1600, Until Discontinued, Do not flush if lock, PICC, or central line not in place; IV infusing or unable to flush., Post-op 1600 (Given - Provider: Ingrid Nielson LPN)2256 (Given - Provider: Katey Mims, RN) 0813 (Given - Provider: Shruthi Ennis RN) Continuous Medication Order 04/20/2023 04/21/2023 04/22/2023 NSS infusion (CANCELED) Intravenous, at 25 mL/hr, CONTINUOUS, Starting on Thu04/21/23 at 0630, Until Thu04/21/23 at 1413, Pre-Op 0740 (New Bag - Provider: Fran Moran CRNA)0741 (Anes Intra-Op Fluid - Provider: Fran Moran CRNA)0805 (Anes Intra-Op Fluid - Provider: Fran Moran CRNA)0848 (Anes Intra-Op Fluid - Provider: Fran Moran CRNA)0955 (Anes Intra-Op Fluid - Provider: Fran Moran CRNA)1413 (Due: Stopped - Provider: Sierra Augustine MD)1999 (Finish Infusion - Provider: Katey Mims, DANAY) PRN Medication Order 04/20/2023 04/21/2023 04/22/2023 dextrose 50 % inj 25 mL 25 mL, IV Push, PRN Hypoglycemia, Other, For blood glucose 54 - 69 mg/dL or 70 - 100 mg/dL with symptoms AND patient is unresponsive, NPO, OR unable to swallow, Starting on Thu04/21/23 at 1208, Until Thu04/22/23 at 1738, Administer IV. Recheck blood glucose after 15 minutes. Notify provider. dextrose 50 % inj 50 mL 50 mL, IV Push, PRN Hypoglycemia, Other, For blood glucose below 54 mg/dL AND patient unresponsive, NPO, OR unable to swallow, Starting on Thu04/21/23 at 1208, Until Thu04/22/23 at 1738, Administer IV. Recheck blood glucose in 15 minutes. Notify provider. glucagon (Glucagen) inj 1 mg 1 mg, Intramuscular, PRN Hypoglycemia, Other, If patient is unresponsive, or NPO and has no IV access, Starting on Thu04/21/23 at 1208, Until Thu04/22/23 at 1738, NPO and no IV access with either 1) blood glucose less than 100 mg/dL and symptomatic OR 2) blood glucose less than 70 mg/dL and asymptomatic Glucose (Glutose 15) 40 % gel 15 g of glucose 15 g of glucose, Oral, PRN Hypoglycemia (low sugar), Other, For blood glucose 54 - 69 mg/dL or 70 - 100 mg/dL with symptoms AND patient alert WITH difficulty chewing/swallowing, Starting on Thu04/21/23 at 1208, Until Thu04/22/23 at 1738, Administer gel. Recheck blood glucose after 15 minutes. Notify provider. 37.5 gram tube = 15 grams glucose = 1 each Glucose (Glutose 15) 40 % gel 30 g of glucose 30 g of glucose, Oral, PRN Hypoglycemia (low sugar), Other, For blood glucose below 54 mg/dL AND patient alert WITH difficulty chewing/swallowing, Starting on Thu04/21/23 at 1208, Until Thu04/22/23 at 1738, Administer gel. Recheck blood glucose after 15 minutes. Notify provider. 37.5 gram tube = 15 grams glucose = 1 each glucose chew tab 16 g 16 g, Oral, PRN Hypoglycemia, Other, For blood glucose 54 - 69 mg/dL or 70 - 100 mg/dL with symptoms and patient alert without difficulty chewing/swallowing., Starting on Thu04/21/23 at 1208, Until Thu04/22/23 at 1738 documented in this encounter Advance Directives Latest [...] consensually agreed upon. Care Teams Director Of Corporate Strategy Relationship Specialty Start Date End Date Nick Edwards MD [address] [place] [address] PCP - General 01/11/04 documented as of this encounter
--- OUTSIDE RECORDS SUMMARY | 2023-08-28 15:14 | External Medical Summary ---
Author Name Unknown Address Unknown Organization K01:LAB[facility]ATORY C - [address] [place] [address] Laboratory Report Ordering Provider Test Date Status DYLAN KOWALSKIENTEL 04/21/2023 13:05:00 Final Observation Date Value Abnormality Reference (Units ) Status Magnesium 04/21/2023 13:05:00 1.8 1.5-2.6 (m g/dL) Final Performing Location [facility] - [address] [place] [address]
--- OUTSIDE RECORDS SUMMARY | 2023-08-28 15:14 | External Medical Summary ---
Author Name Unknown Address Unknown Organization : Laboratory Report Ordering Provider Test Date Status EKTA FIGUEROA 04/21/2023 08:43:09 Final NORMAL (NON-HEPARINIZED) 74- 137 SECONDS
HEPARINIZED 200+ SECONDS
CRITICAL GREATER THAN 1000 SECONDS
null Observation Date Value Abnormality Reference (Units ) Status Kaolin activated time [Units/volume] in Blood 04/21/2023 08:43:09 401 50-1000 (secs) Final Performing Location
--- OUTSIDE RECORDS SUMMARY | 2023-08-28 15:14 | External Medical Summary ---
Author Name Unknown Address Unknown Organization : Laboratory Report Ordering Provider Test Date Status EKTA FIGUEROA 04/21/2023 10:01:58 Final NORMAL (NON-HEPARINIZED) 74- 137 SECONDS
HEPARINIZED 200+ SECONDS
CRITICAL GREATER THAN 1000 SECONDS
null Observation Date Value Abnormality Reference (Units ) Status Kaolin activated time [Units/volume] in Blood 04/21/2023 10:01:58 329 50-1000 (secs) Final Performing Location
--- OUTSIDE RECORDS SUMMARY | 2023-08-28 15:14 | External Medical Summary ---
Author Name Unknown Address Unknown Organization [id number]:[facility] [place] [facility] [place] [address] [place] [address] Laboratory Report Ordering Provider Test Date Status ANGELA RAVI 04/21/2023 07:04:04 Final Observation Date Value Abnormality Reference (Units ) Status ABO 04/21/2023 07:04:04 A Final RH 04/21/2023 07:04:04 Positive Final RED BLOOD CELL ANTIBODY SCREEN 04/21/2023 07:04:04 Negative Final SPECIMEN EXPIRATION DATE 04/21/2023 07:04:04 04/24/2023 23:59 Final Performing Location [facility] [place] [facility] [place] [address] [address]
--- OUTSIDE RECORDS SUMMARY | 2023-08-28 15:14 | External Medical Summary ---
Author Name Unknown Address Unknown Organization [id number]:LABORATORY [facility] - [address] [place] [address] Laboratory Report Ordering Provider Test Date Status DYLAN KOWALSKIENTEL 04/22/2023 05:47:00 Final Observation Date Value Abnormality Reference (Units ) Status Magnesium 04/22/2023 05:47:00 1.8 1.5-2.6 (m g/dL) Final Performing Location [facility] - [address] [place] [address]
--- OUTSIDE RECORDS SUMMARY | 2023-08-28 15:14 | External Medical Summary ---
Author Name Unknown Address Unknown Organization : Laboratory Report Ordering Provider Test Date Status WATSON RIVERO 04/21/2023 13:05:00 Final Observation Date Value Abnormality Reference (Units ) Status Performing Location
--- OUTSIDE RECORDS SUMMARY | 2023-08-28 15:14 | External Medical Summary ---
Author Name Unknown Address Unknown Organization [id number]:[facility] [place] [address] [address] Laboratory Report Ordering Provider Test Date Status WATSON RIVERO 04/21/2023 13:05:00 Final Observation Date Value Abnormality Reference (Units ) Status Vitamin B12 04/21/2023 13:05:00 [phone] (pg/mL) Final Performing Location [facility] - [address] [place] [address]
--- OUTSIDE RECORDS SUMMARY | 2023-08-28 15:14 | External Medical Summary | Summary of Care ---
Author Name Unknown Organization [facility] Address [address] [facility] [place] [address] Phone [phone] Care Team Providers Care Tank Assembler Name Role Phone Nick Edwards MD Primary Care Provider [phone] Reason for Referral * Precert (Within 10 days (routine)) - Pending Review Specialty Diagnoses / Procedures Referred By Contac t Referred To Contact Cardiac Studies Diagnoses History of transcatheter aortic valve replacement (TAVR) Procedures ECHO, COMPLETE (2D), TRANS-THORACIC Mini, ANKUR Pope [address] [place] [address] Referral ID Status Reason Start Date Expiration Date Visits Requested Visits Authorized [id number] Pending Review Precert 06/05/[phone] Encounter Details Date Type Department Care Team Description 04/21/2023 Orders Only Cardiology [facility] [address] [place] [address] Karen Shankar [facility] [address] [place] [address] History of transcatheter aortic valve replacement (TAVR)* Allergies Active Allergy Reactions Severity Noted Date Comments Felodipine 11/17/2000 plendil Empagliflozin Diarrhea High 06/03/2022 documented as of this encounter (statuses as of 04/21/2023) Medications Medication Sig Dispensed Refills Start Date [...] 1 Capsule by mouth daily. 0 Suspended FoodistaTouch Ultra Blue In Vitro Strip (Glucose Blood) [...] 90 Tablet 3 04/09/2023 Suspended Additional Information documented as of this encounter (statuses as of 04/21/2023) Active Problems Problem Noted Date Chronic atrial fibrillation 04/06/2023 Other cirrhosis of [...] as of this encounter (statuses as of 04/21/2023) Resolved Problems Problem Noted Date Resolved Date [...] as of this encounter (statuses as of 04/21/2023) Immunizations Name Administration Dates Next Due COVID-19 [...] you have serious difficulty h earing? No 05/17/2014 Are you blind or do you have serious difficulty seeing, even when wearing glasses? No 05/17/2014 Do you have serious difficul ty walking or climbing stairs? (5 years old or older) No 05/17/2014 Do you have difficulty dress ing or bathing? (5 years old or older) No 05/17/2014 Because of a physical, menta l, or emotional condition, do you have difficulty doing errands alone such as visiting a doctor s office or shopping? (15 years old or older) No 05/17/20 14 Cognitive Status Response Date of Assessm ent Because of a physical, menta l, or emotional condition, do you have serious difficulty concentrating, remembering, or making decisions? (5 years old or older No 05/17/2014 documented as of this encounter Plan of Treatment Upcoming Encounters Date Type Specialty Care Team Description 05/05/2023 Office Visit Nephrology Regina Alonso MD [address] [place] [address] 05/21/2023 Office Visit Family Medicine Nick Edwards MD [address] [place] [address] 06/23/2023 Office Visit Gastroenterology Rebekah Anguiano MD [address] [place] [id number] 07/14/2023 Office Visit Sleep Disorders Sujey Vega, [address] [place] [address] Scheduled Orders Name Type Priority Associated Diagnoses Orde r Schedule EKG COMPLETE (TRACING AND INTERP) EKG Routine History of transcatheter aortic valve replacement (TAVR) Expected: 04/29/2023, Expires: 05/22/2024 EKG COMPLETE (TRACING AND INTERP) EKG Routine History of transcatheter aortic valve replacement (TAVR) Expected: 06/05/2023, Expires: 05/22/2024 ECHO, COMPLETE (2D), TRANS-THORACIC Echocardiology Routine History of transcatheter aortic valve replacement (TAVR) Expected: 06/05/2023 (Approximate), Expires: 05/22/2025 CBC Lab Routine History of transcatheter aortic valve replacement (TAVR) Expected: 06/05/2023, Expires: 04/21/2024 BASIC METABOLIC PANEL Lab Routine History of transcatheter aortic valve replacement (TAVR) Expected: 06/05/2023, Expires: 04/21/2024 Scheduled Procedures Name Priority Associated Diagnoses Date/Ti me REPLACE AORTIC VALVE, PERCUTANEOUS FEMORAL Aortic stenosis 04/21/2023 7:21 AM EDT REPLACE AORTIC VALVE, PERCUTANEOUS FEMORAL Aortic stenosis 04/21/2023 7:21 AM EDT Health Maintenance Due Date Last Done Comments Depression Screening 03/29/2021 03/29/2020 COVID-19 Vaccine (5 - 2022-2 4 season) 2023 05/21/2022, 04/03/2021, 09/14/2020, Additional history exists Zoster Vaccines Completed 08/25/2022, 05/07, 11/17/2012 Influenza Vaccine (FLU shot) Completed 05/2023, 04/10/2022, 04/15/2021, Additional history exists documented as of this encounter Medical Devices Implanted Type Area Diamond Powder Technician Device Identifier Shelf Expiration Date Model / Serial / Lot Valve Heart Trifec Aortic 23mm - [id number] Implanted:Qty : 1 on 05/16/2014 at [place] [facility] N/A: Aorta [facility] [employer] : CARDIOVASCULAR 07/25/2015 TF-23A / [id number] / Stent Synergy Xd Mr [id number] - [id number] Implanted:Qty : 1 on 04/21/2023 by Christopher Moreno MD at CARDIAC LABS [facility] BOS [employer] [id number] 10/14/2023 [id number] / / [id number] documented as of this encounter Visit Diagnoses Diagnosis History of transcatheter aortic valve replacement (TAVR)- Primary documented in this encounter Advance Directives Latest Code Status on File Code Status Date Activated Date Inactivated Comments Full Code 04/09/2023 9:33 AM 04/09/2023 1:34 PM This order reflects the patients wishes and were consensually agreed upon. Question Answer Comments Discussion of Advance Directives occurred with: Not Discussed due to patient's condition Code Status History Code Status Date Activated Date Inactivated Comments Full Code 05/16/2014 4:52 PM 05/19/2014 4:26 PM Thi s order reflects the patients wishes and were consensually agreed upon. Care Teams Tank Assembler Relationship Specialty Start Date End Date Nick Edwards MD [address] [place] [address] PCP - General 01/11/04 documented as of this encounter
--- OUTSIDE RECORDS SUMMARY | 2023-08-28 15:14 | External Medical Summary ---
Author Name Unknown Address Unknown Organization K01[place] [place] [facility] [address] Laboratory Report Ordering Provider Test Date Status AZAEL KOWALSKIL 04/21/2023 13:05:00 Final Observation Date Value Abnormality Reference (Units ) Status WBC, Total 04/21/2023 13:05:00 4.58 4.00-10.80 (K/uL) Final RBC 04/21/2023 13:05:00 3.46 4.50-5.25 (M/uL) Final Hemoglobin 04/21/2023 13:05:00 10.8 Below low normal 14.0-16.8 (g/dL) Final HCT 04/21/2023 13:05:00 34.2 Below low normal 40.0-48.4 (%) Final MCV 04/21/2023 13:05:00 98.8 82.0-99.5 (fL) Final MCH 04/21/2023 13:05:00 31.2 27.0-34.0 (pg) Final MCHC 04/21/2023 13:05:00 31.6 32.0-36.0 (g/dL) Final RDW 04/21/2023 13:05:00 15.0 11.5-15.5 (%) Final Platelets 04/21/2023 13:05:00 88 Below low normal 140-400 (K/uL) Final MPV 04/21/2023 13:05:00 9.8 6.6-11.1 (fL) Final Nucleated erythrocytes/100 leukocytes [Ratio] in Blood by Automated count 04/21/2023 13:05:00 0 <=0 (/100 WBCs) Final Performing Location [facility] [place] [address] [place] [address]
--- OUTSIDE RECORDS SUMMARY | 2023-08-28 15:14 | External Medical Summary ---
Author Name Unknown Address Unknown Organization K01:LABORATORY [facility] [place] - [address] [address] Laboratory Report Ordering Provider Test Date Status WATSON RIVERO 04/21/2023 13:05:00 Final Observation Date Value Abnormality Reference (Units ) Status Folic Acid 04/21/2023 13:05:00 19.4 >4.5 (ng/ mL) Final Performing Location [facility] - [address] [place] [address]
--- OUTSIDE RECORDS SUMMARY | 2023-08-28 15:14 | External Medical Summary ---
Author Name Unknown Address Unknown Organization K01:LABORATORY [facility] [place] - [facility] [address] [facility] [place] [address] Laboratory Report Ordering Provider Test Date Status AZAEL KOWALSKIL 04/22/2023 05:47:00 Final Observation Date Value Abnormality Reference (Units ) Status BUN 04/22/2023 05:47:00 44 Above high normal 6-20 (mg/dL) Final Creatinine 04/22/2023 05:47:00 2.1 Above high normal 0.6-1.2 (mg/dL) Final Glomerular filtration rate/1.73 sq M.predicted [Volume Rate/Area] in Serum, Plasma or Blood by Creatinine-based formula (CKD-EPI) 04/22/2023 05:47:00 30 Below low normal >=60 (mL/min) Final eGFR is calculated based on the CKD-EPI 2020 equation SODIUM 04/22/2023 05:47:00 139 135-146 (m mol/L) Final Potassium 04/22/2023 05:47:00 4.8 3.5-5.1 (m mol/L) Final Cl 04/22/2023 05:47:00 105 98-107 (mm ol/L) Final CO2 04/22/2023 05:47:00 23 22-32 (mmo l/L) Final Anion gap 04/22/2023 05:47:00 11 7-15 (mmol /L) Final Glucose 04/22/2023 05:47:00 141 Above high normal 70 -120 (mg/dL) Final Calcium 04/22/2023 05:47:00 8.1 Below low normal 8.4 -10.2 (mg/dL) Final Performing Location LABORATORY [facility] [place] - [address] [place] [address]
--- OUTSIDE RECORDS SUMMARY | 2023-08-28 15:14 | External Medical Summary ---
Author Name Unknown Address Unknown Organization K01:LAB[facility]ATORY [facility] [place] - [facility] [address] [facility] [address] [place] [address] Laboratory Report Ordering Provider Test Date Status AZAEL KOWALSKIL 04/21/2023 13:05:00 Final Observation Date Value Abnormality Reference (Units ) Status BUN 04/21/2023 13:05:00 45 Above high normal 6-20 (mg/dL) Final Creatinine 04/21/2023 13:05:00 2.0 Above high normal 0.6-1.2 (mg/dL) Final Glomerular filtration rate/1.73 sq M.predicted [Volume Rate/Area] in Serum, Plasma or Blood by Creatinine-based formula (CKD-EPI) 04/21/2023 13:05:00 32 Below low normal >=60 (mL/min) Final eGFR is calculated based on the CKD-EPI 2020 equation SODIUM 04/21/2023 13:05:00 141 135-146 (m mol/L) Final Potassium 04/21/2023 13:05:00 4.0 3.5-5.1 (m mol/L) Final Cl 04/21/2023 13:05:00 104 98-107 (mm ol/L) Final CO2 04/21/2023 13:05:00 28 22-32 (mmo l/L) Final Anion gap 04/21/2023 13:05:00 9 7-15 (mmol /L) Final Glucose 04/21/2023 13:05:00 132 Above high normal 70 -120 (mg/dL) Final Calcium 04/21/2023 13:05:00 8.4 8.4-10.2 ( mg/dL) Final Performing Location LABORATORY [facility] [place] - [address] [place] [address]
--- OUTSIDE RECORDS SUMMARY | 2023-08-28 15:15 | External Medical Summary | Summary of Care ---
Author Name Unknown Organization [facility] Address [address] [facility] [place] [address] Phone [phone] Care Team Providers Care Oracle Database Manager Name Role Phone Nick Edwards MD Primary Care Provider [phone] Reason for Visit * Reason Onset Date Comments Hospital Follow-Up 04/10/2023 Encounter Details Date Type Department Care Team Description 04/10/2023 Telephone [facility] [address] [place] [address] Nick Edwards MD [address] [place] [address] Hospital Follow-Up Allergies Active Allergy Reactions Severity Noted Date Comments Felodipine 11/17/2000 plendil Empagliflozin Diarrhea High 06/03/2022 documented as of this encounter (statuses as of 04/10/2023) Medications Medication Sig Dispensed Refills Start Date [...] the morning. 90 Tablet 3 04/09/2023 Active documented as of this encounter (statuses as of 04/10/2023) Active Problems Problem Noted Date Chronic atrial [...] as of this encounter (statuses as of 04/10/2023) Resolved Problems Problem Noted Date Resolved Date [...] as of this encounter (statuses as of 04/10/2023) Immunizations Name Administration Dates Next Due COVID-19 mRNA, LNP-s, No Pre serve, 2-Dose Series (VULCUN) 04/03/2021,09/14/2020,08/17/2020 Influenza, Whole Virus 05/03/2018,07/24/2006 Pneumococcal Conjugate [...] No 05/17/2014 documented as of this encounter Miscellaneous Notes * Telephone Encounter - Radha Chu RN - 04/10/2023 8:07 AM EDT Transitions of Care Note Reason for Referral:Recent Admission Phone visit for follow up: GERRY Admitted to: [facility], Date: 04/10/23 Discharged to: Home, Date: 04/10/23 Diagnosis driving hospitalization: S/P TAVR No GERRY call indicated, patient admitted less than 24 hours. documented in this encounter Plan of Treatment Upcoming Encounters Date Type Specialty Care Team Description 05/05/2023 Office Visit Nephrology Regina Alonso MD [address] [place] [address] 05/21/2023 Office Visit Family Medicine Nick Edwards MD [address] [place] [address] 06/23/2023 Office Visit Gastroenterology Rebekah Anguiano MD [address] [place] [address] 07/14/2023 Office Visit Sleep Disorders Sujey Vega, [address] [place] [address] Health Maintenance Due Date Last Done Comments Depression Screening 03/29/2021 03/29/2020 COVID-19 Vaccine (2022-08 4 season) 2023 05/21/2022, 04/03/2021, 09/14/2020, Additional history exists Zoster Vaccines Completed 08/25/2022, 05/07, 11/17/2012 Influenza Vaccine (FLU shot) Completed 05/2023, 04/10/2022, 04/15/2021, Additional history exists documented as of this encounter Medical Devices Implanted Type Area Accounts Receivable Collector Device Identifier Shelf Expiration Date Model / Serial / Lot Valve Heart Trifec Aortic 23mm - [id number] Implanted:Qty: 1 on 05/16/2014 at [place] [facility] N/A: Aorta [employer] : CARDIOVASCULAR 07/25/2015 TF-23A / [id number] / documented as of this encounter Advance Directives [...] and were consensually agreed upon. Care Teams Oracle Database Manager Relationship Specialty Start Date End Date Nick Edwards MD [address] [place], [place] [id number] PCP - General 01/11/04 documented as of this encounter
--- OUTSIDE RECORDS SUMMARY | 2023-08-28 15:15 | External Medical Summary | Summary of Care ---
Author Name Unknown Organization [facility] Address [address] [place] [address] Phone [phone] Care Team Providers Care Envelope Machine Adjuster Name Role Phone Nick Edwards MD Primary Care Provider [phone] Reason for Visit * Auth/Cert Specialty Diagnoses / Procedures Referred By Kalyn t Referred To Contact Diagnoses Aortic stenosis Aortic stenosis [I35.0] Procedures REPLACE AORTIC VALVE, PERCUTANEOUS FEMORAL REPLACE AORTIC VALVE, PERCUTANEOUS FEMORAL REPLACE AORTIC VALVE, PERCUTANEOUS FEMORAL REPLACE AORTIC VALVE, PERCUTANEOUS FEMORAL Referral ID Status Reason Start Date Expiration Date Visits Re quested Visits Authorized [id number] [phone] Encounter Details Date Type Department Care Team Description 04/09/2023 Hospital Encounter [facility], [facility] 8th Floor [address] [place] [address] Christopher Moreno MD [address], [place] [id number] Palmira Valdez MD [address], [place] [id number] Allergies Active Allergy Reactions Severity Noted Date [...] Sign Reading Time Taken Comments Blood Pressure 157/42 04/09/2023 1:15 PM EDT Pulse 77 04/09/2023 1:15 PM EDT Temperature 36.5 C (97.7 F) 04/09/2023 9:00 AM ED T Respiratory Rate 16 04/09/2023 1:15 PM EDT Oxygen Saturation 100% 04/09/2023 8:52 AM EDT Inhaled Oxygen Concentration - - Weight 98.4 kg (217 lb) 04/09/2023 8:45 AM EDT Height 180.3 cm (5' 11") 04/09/2023 8:45 AM EDT Body Mass Index 30.27 04/09/2023 8:45 AM EDT documented in this encounter Functional [...] No 05/17/2014 documented as of this encounter Progress Notes * ANKUR Haley - 04/09/2023 2:51 PM EDT Procedure was rescheduled due to issues with the first TAVR. His low magnesium was treated with he was given 60 mg of IV furosemide. He was instructed to continue clopidogrel 75 mg daily documented in this encounter Nursing Notes * Andreina Yeung RN - 04/09/2023 1:33 PM EDT I agree with nurse Ingrid Nielson LPN pre procedure procedures. * Ingrid Nielson LPN - 04/09/2023 12:38 PM EDT 1200 TAVR cancelled due to an emergency. Because patients magnesium is low , 2 Grams of magnesium is being given before he is discharged. Also 60 mg of Furosemide was given and 2 meq of Potassium wasgiven 1500 Patient discharged, instructed to take Plavix 75 mg daily. .[facility] [place] Pt instructed to call Polly if he has any questions. * Miranda Vega RN - 04/08/2023 1:19 PM EDT NO ANESTHESIA EVAL REQUESTED PER CASE DOCUMENTATION. Pre-operative chart review completed. Miranda Vega RN documented in this encounter Plan of Treatment Upcoming Encounters Date Type Specialty Care Team Description 05/05/2023 Office Visit Nephrology Regina Alonso MD [address] [place] [address] 05/21/2023 Office Visit Family Medicine Nick Edwards MD [address] [place] [address] 06/23/2023 Office Visit Gastroenterology Rebekah Anguiano MD [address] [place] [address] 07/14/2023 Office Visit Sleep Disorders Sujey Vega DO [address] [place] [address] Health Maintenance Due Date Last Done Comments Depression Screening 03/29/2021 03/29/2020 COVID-19 Vaccine (2022-2 4 season) 2023 05/21/2022, 04/03/2021, 09/14/2020, Additional history exists Zoster Vaccines Completed 08/25/2022, 05/07, 11/17/2012 Influenza Vaccine (FLU shot) Completed 05/2023, 04/10/2022, 04/15/2021, Additional history exists documented as of this encounter Medical Devices Implanted Type Area Key Worker Device Identifier Shelf Expiration Date Model / Serial / Lot Valve Heart Trifec Aortic 23mm - [id number] Implanted:Qty: 1 on 05/16/2014 [place] [facility] N/A: Aorta [facility] [employer] : CARDIOVASCULAR 07/25/2015 TF-23A / [id number] / documented as of this encounter Procedures Procedure Name Priority Date/Time Associated Diagnosis Comments BNP (NT-PROBNP) STAT 04/09/2023 8:28 AM EDT MAGNESIUM STAT 04/09/2023 8:28 AM EDT HC COMPATIBILITY ELECTRONIC CROSSMATCH STAT 04/09/2023 7:50 AM EDT documented in this encounter Results * MAGNESIUM (04/09/2023 8:28 AM EDT) Magnesium 1.5 1.5 - 2.6 mg/dL 04/09/2023 10:44 AM EDT LAB[facility]AT[facility] Blood Venous blood specimen / Unknown Venipuncture / Unknown 04/09/2023 8:28 AM EDT 04/09/2023 8:48 AM EDT Fernanda PASCUAL LAB BLOOD OR DERABLES Performing Organization Address City/[facility]/ZIP Co de Phone Number LABORATORY [address] [address] * (ABNORMAL) BNP, NT-PRO (04/09/2023 8:28 AM EDT) BNP, NT-Pro 3,682(H) <300 pg/mL 04/09/2023 9:14 AM EDT LAB[facility]ATORY [facility] Blood Venous blood specimen / Unknown Venipuncture / Unknown 04/09/2023 8:28 AM EDT 04/09/2023 8:48 AM EDT Narrative LAB[facility]AT[facility] - 04/09/2023 9:14 AM EDT Exclude Heart Failure: <300 pg/mL Diagnose Heart Failure: Age <50 yr: >450 pg/mL 50-75 yr: >900 pg/mL >75 yr: >1800 pg/mL GFR is 30-59 mL/min: >1200 pg/mL or Age-adjusted values GFR <30 mL/min: do not use, not reliable Prognostic threshold: 1000 pg/mL Logan PASCUAL LAB BLOOD OR DERABLES LABORATORY [place] [address] [place] [address] * PREPARE PACKED RED BLOOD CELLS (04/09/2023 7:50 AM EDT) Unit Product Code [id number] LAB[facility]ATORY [facility] BLOOD BANK Unit Number [id number] LABO RATORY [facility] BLOOD BANK Unit ABO A LABORATORY C BLOOD BANK Unit Rh POS LABORATORY [facility] BLOOD BANK Unit Crossmatch Compatible LAB[facility]ATORY [facility] BLOOD BANK Unit Status XM LABORATO RY [facility] BLOOD B[facility] Unit Blood Type APOS LABORATORY [facility] BLOOD BANK Unit Expiration [id number] LABORATORY [facility] BLOOD BANK Unit Barcode 6200 LABORAT ORY [facility] BLOOD BANK Unit Product Code [id number] LAB[facility]ATORY [facility] BLOOD BANK Unit Number [id number] LABO RATORY [facility] BLOOD BANK Unit ABO A LABORAT[facility]LOOD BANK Unit Rh POS LABORATORY [facility]LOOD BANK Unit Crossmatch Compatible LABORATORY [facility] BLOOD BANK Unit Status XM LABORATO RY [facility] BLOOD BANK Unit Blood Type APOS LABORATORY [facility] BLOOD BANK Unit Expiration [id number] LABORATORY [facility] BLOOD BANK Unit Barcode 6200 LABORAT ORY [facility] BLOOD BANK 04/09/2023 7:50 AM EDT Christopher Moreno MD BLD BANK PRODUCT ORD ERABLES LABORATORY [facility] BLOOD BANK [address] [place] [address] documented in this encounter Visit Diagnoses Diagnosis S/P TAVR (transcatheter aortic valve replacement) Heart valve replaced by other means Valvular heart disease Endocarditis, valve unspecified, unspecified cause Chest pain Chest pain, unspecified documented in this encounter Administered Medications Inactive Administered Medications - up to 3 most recent administrations Medication Order MAR Action Action Date Dose Rate Site Furosemide (Lasix) inj 60 mg 60 mg, IV Push, ONCE, On Kera 04/09/23 at 1300, For 1 dose Given 04/09/2023 12:25 PM EDT 60 mg magnesium sulfate 1 g in d5w 100mL LOCKED DOSE 1 g, IV Piggyback, ONCE, 1 dose, On Kera 04/09/23 at 1215, Administer over 60 Minutes New Bag 04/09/2023 12:15 PM EDT 1 g 100 mL/hr magnesium sulfate 1 g in d5w 100mL LOCKED DOSE 1 g, IV Piggyback, ONCE, 1 dose, On Kera 04/09/23 at 1300, Administer over 60 Minutes New Bag 04/09/2023 1:25 PM EDT 1 g 100 mL/hr NSS infusion Intravenous, at 25 mL/hr, CONTINUOUS, Starting on Kera 04/09/23 at 0830, Until Kera 04/09/23 at 1950, Pre-Op New Bag 04/09/2023 9:02 AM EDT 25 mL/h r potassium chloride ER tab 20 mEq 20 mEq, Oral, ONCE, On Kera 04/09/23 at 1300, For 1 dose, This med should NOT be Crushed or Chewed Given 04/09/2023 12:25 PM EDT 20 mEq documented in this encounter Active and Recently Administered Medications Times are shown in EDT. Scheduled Medication Order 04/07/2023 04/08/2023 04/09/2023 ceFAZolin in dextrose (Ancef) ivpb 2 g 2 g, IV Piggyback, ONCE, 1 dose, On Kera 04/09/23 at 0830, Pre-Op 0830 (Not Given - Pr ovider: Andreina Yeung RN - Reason: Order Clarified - Comment: Procedure cancelld) Furosemide (Lasix) inj 60 mg (COMPLETED) 60 mg, IV Push, ONCE, On Kera 04/09/23 at 1300, For 1 dose 1225 (Given - Provid er: Andreina Yeung RN) magnesium sulfate 1 g in d5w 100mL LOCKED DOSE (COMPLETED) 1 g, IV Piggyback, ONCE, 1 dose, On Kera 04/09/23 at 1215, Administer over 60 Minutes 1215 (New Bag - Prov ider: Andreina Yeung RN) magnesium sulfate 1 g in d5w 100mL LOCKED DOSE (COMPLETED) 1 g, IV Piggyback, ONCE, 1 dose, On Kera 04/09/23 at 1300, Administer over 60 Minutes 1325 (New Bag - Prov ider: Andreina Yeung RN) potassium chloride ER tab 20 mEq (COMPLETED) 20 mEq, Oral, ONCE, On Kera 04/09/23 at 1300, For 1 dose, This med should NOT be Crushed or Chewed 1225 (Given - Provid er: Andreina Yeung, RN) Continuous Medication Order 04/07/2023 04/08/2023 04/09/2023 NSS infusion Intravenous, at 25 mL/hr, CONTINUOUS, Starting on Kera 04/09/23 at 0830, Until Kera 04/09/23 at 1950, Pre-Op 0902 (New Bag - Prov ider: Ingrid Nielson LPN) documented in this encounter Advance Directives Latest [...] and were consensually agreed upon. Care Teams Envelope Machine Adjuster Relationship Specialty Start Date End Date Nick Edwards MD [address] [place] [address] PCP - General 01/11/04 documented as of this encounter
--- OUTSIDE RECORDS SUMMARY | 2023-08-28 15:15 | External Medical Summary ---
Author Name Unknown Address Unknown Organization [id number]:[facility]ORY [facility] [place] [facility] [address] Laboratory Report Ordering Provider Test Date Status ANGELA RAVI 04/06/2023 11:34:48 Final Observation Date Value Abnormality Reference (Units ) Status WBC, Total 04/06/2023 11:34:48 5.43 4.00-10.80 (K/uL) Final RBC 04/06/2023 11:34:48 3.51 4.50-5.25 (M/uL) Final Hemoglobin 04/06/2023 11:34:48 10.9 Below low normal 14.0-16.8 (g/dL) Final HCT 04/06/2023 11:34:48 34.5 Below low normal 40.0-48.4 (%) Final MCV 04/06/2023 11:34:48 98.3 82.0-99.5 (fL) Final MCH 04/06/2023 11:34:48 31.1 27.0-34.0 (pg) Final MCHC 04/06/2023 11:34:48 31.6 32.0-36.0 (g/dL) Final RDW 04/06/2023 11:34:48 15.2 11.5-15.5 (%) Final Platelets 04/06/2023 11:34:48 87 Below low normal 140-400 (K/uL) Final MPV 04/06/2023 11:34:48 10.6 6.6-11.1 (fL) Final Nucleated erythrocytes/100 leukocytes [Ratio] in Blood by Automated count 04/06/2023 11:34:48 0 <=0 (/100 WBCs) Final Performing Location LABORATORY [facility] - [address] [place] [address]
--- OUTSIDE RECORDS SUMMARY | 2023-08-28 15:15 | External Medical Summary ---
Author Name Unknown Address Unknown Organization [id number]:[facility]ATORY [facility] [place] [facility] [address] [place] [address] Laboratory Report Ordering Provider Test Date Status ANGELA RAVI 04/06/2023 11:34:48 Final Warfarin Therapy
INR: 2 .0-3.0 conventional anticoagulation
INR: 2.5- 3.5 high intensity anticoagulation Observation Date Value Abnormality Reference (Units ) Status PT 04/06/2023 11:34:48 16.2 Above high normal 11 .6-15.2 (seconds) Final INR 04/06/2023 11:34:48 1.3 Above high normal 0. 8-1.2 Final Performing Location LABORATORY [facility] [place] [address] [place] [address]
--- OUTSIDE RECORDS SUMMARY | 2023-08-28 15:15 | External Medical Summary | Summary of Care ---
Author Name Unknown Organization [facility] Address [address] [place] [address] Phone [phone] Care Team Providers Care Crisis Specialist Name Role Phone Nick Edwards MD Primary Care Provider [phone] Reason for Referral * Precert (Within 10 days (routine)) - Pending Review Specialty Diagnoses / Procedures Referred By Contac t Referred To Contact Cardiac Studies Diagnoses History of transcatheter aortic valve replacement (TAVR) Procedures ECHO, COMPLETE (2D), TRANS-THORACIC Georgette Carolina CRNP [address] [facility] [place] [address] Referral ID Status Reason Start Date Expiration Date Visits Requested Visits Authorized [id number] Pending Review Precert 05/20/[phone] Encounter Details Date Type Department Care Team Description 04/08/2023 Orders Only Cardiology [facility] [address] [place] [address] Karen Shankar, [facility] [address] [place] [address] History of transcatheter aortic valve replacement (TAVR)* Allergies Active Allergy Reactions Severity Noted Date Comments Felodipine 11/17/2000 plendil Empagliflozin Diarrhea High 06/03/2022 documented as of this encounter (statuses as of 04/08/2023) Medications Medication Sig Dispensed Refills Start Date [...] the evening. 60 Tablet 5 03/16/2023 Active documented as of this encounter (statuses as of 04/08/2023) Active Problems Problem Noted Date Chronic atrial [...] as of this encounter (statuses as of 04/08/2023) Resolved Problems Problem Noted Date Resolved Date [...] as of this encounter (statuses as of 04/08/2023) Immunizations Name Administration Dates Next Due COVID-19 [...] Encounters Date Type Specialty Care Team Description 04/09/2023 Hospital Encounter Cardiac Financial Management Consultant Christopher Moreno MD [address] [place], [place] [phone] 04/09/2023 Surgery Cardiac Financial Management Consultant Christopher Moreno MD [address] [place], [place] [phone] REPLACE AORTIC VALVE, PERCUTANEOUS FEMORAL 04/09/2023 Office Visit Cardiology [place], [facility] Jesse [address] [place], [place] [phone] 05/05/2023 Office Visit Nephrology Regina Alonso MD [address] [place] [address] 05/21/2023 Office Visit Family Medicine Nick Edwards MD [address] [place] [address] 06/23/2023 Office Visit Gastroenterology Rebekah Anguiano MD [address] [facility] [place] [phone] 07/14/2023 Office Visit Sleep Disorders Sujey Vega DO [address] [place] [address] Scheduled Orders Name Type Priority Associated Diagnoses Orde r Schedule EKG COMPLETE (TRACING AND INTERP) EKG Routine History of transcatheter aortic valve replacement (TAVR) Expected: 04/20/2023, Expires: 05/09/2024 EKG COMPLETE (TRACING AND INTERP) EKG Routine History of transcatheter aortic valve replacement (TAVR) Expected: 05/20/2023, Expires: 05/09/2024 ECHO, COMPLETE (2D), TRANS-THORACIC Echocardiology Routine History of transcatheter aortic valve replacement (TAVR) Expected: 05/20/2023 (Approximate), Expires: 05/09/2025 CBC Lab Routine History of transcatheter aortic valve replacement (TAVR) Expected: 05/20/2023, Expires: 04/08/2024 BASIC METABOLIC PANEL Lab Routine History of transcatheter aortic valve replacement (TAVR) Expected: 05/20/2023, Expires: 04/08/2024 Scheduled Procedures Name Priority Associated Diagnoses Date/Ti me REPLACE AORTIC VALVE, PERCUTANEOUS FEMORAL Aortic stenosis 04/09/2023 8:00 AM EDT REPLACE AORTIC VALVE, PERCUTANEOUS FEMORAL Aortic stenosis 04/09/2023 8:00 AM EDT Health Maintenance Due Date Last Done Comments Depression Screening 03/29/2021 03/29/2020 COVID-19 Vaccine (2022-08 4 season) 2023 05/21/2022, 04/03/2021, 09/14/2020, Additional history exists Zoster Vaccines Completed 08/25/2022, 05/07, 11/17/2012 Influenza Vaccine (FLU shot) Completed 05/2023, 04/10/2022, 04/15/2021, Additional history exists documented as of this encounter Medical Devices Implanted Type Area Automobile Body Repairer Helper Device Identifier Shelf Expiration Date Model / Serial / Lot Valve Heart Trifec Aortic 23mm - [id number] Implanted:Qty: 1 on 05/16/2014 at [place] [facility] [place] N/A: Aorta [employer] : CARDIOVASCULAR 07/25/2015 TF-23A / [id number] / documented as of this encounter Visit Diagnoses Diagnosis S/P TAVR (transcatheter aortic valve replacement) Heart valve replaced by other means History of transcatheter aortic valve replacement (TAVR)- Primary Aortic stenosis Aortic valve disorders documented in this encounter Advance Directives Latest Code Status on File Code Status Date Activated Date Inactivated Comments Full Code 05/16/2014 4:52 PM 05/19/2014 4:26 PM Thi s order reflects the patients wishes and were consensually agreed upon. Care Teams Crisis Specialist Relationship Specialty Start Date End Date Nick Edwards MD [address] [place] [address] PCP - General 01/11/04 documented as of this encounter
--- OUTSIDE RECORDS SUMMARY | 2023-08-28 15:15 | External Medical Summary ---
Author Name Unknown Address Unknown Organization [id number]:LABORATORY [facility] - [facility] [place] [address] Laboratory Report Ordering Provider Test Date Status WASTON RIVERO 04/21/2023 07:04:04 Final Observation Date Value Abnormality Reference (Units ) Status Retic, % (auto) 04/21/2023 07:04:04 2.33 Above high normal 0.80-1.90 (%) Final Reticulocytes, Absolute 04/21/2023 07:04:04 75.3 31.3-100.1 (K/uL) Final Reticulocyte HGB 04/21/2023 07:04:04 35.1 29.7-37.4 (pg) Final Performing Location LABORATORY [facility] - [address] [place] [address]
--- OUTSIDE RECORDS SUMMARY | 2023-08-28 15:15 | External Medical Summary | Summary of Care ---
Author Name Unknown Organization [facility] Address [address] [place] [address] Phone [phone] Care Team Providers Care Soil Tester Name Role Phone Nick Edwards MD Primary Care Provider [phone] Reason for Visit * Reason Comments Follow Up Outpatient Testing * Opinion/Recommendation - Change # of Visits to 1 (Within 10 days (routine)) - Authorized Specialty Diagnoses / Procedures Referred By Contact Referred To Contact Cardiovascular Medicine / Cardiology Diagnoses S/P Nick Quiñones MD [address] [place] [address] Christopher Moreno MD [address] [place] [address] Referral ID Status Reason Start Date Expiration Date Visits Requested Visits Authorized [id number] Authorized Specialty Services Required 04/02/2023 04/02/[phone] Encounter Details Date Type Department Care Team Description 04/06/2023 Office Visit [facility] [address] [place], [place] [phone] Christopher Moreno MD [address] [place], [place] [phone] Nonrheumatic aortic valve stenosis*; HTN, goal below 140/90; Chronic atrial fibrillation (HCC); Aortic stenosis Allergies Active Allergy Reactions Severity Noted Date Comments Felodipine 11/17/2000 plendil Empagliflozin Diarrhea High 06/03/2022 documented as of this encounter (statuses as of 04/06/2023) Medications Medication Sig Dispensed Refills Start Date [...] Tablet (pLAVix) Take 1 Tablet by mouth once for 1 dose. Take 8 pills on 04/08/2023 at 8 PM 8 Tablet 0 04/06/2023 04/06/2023 Active documented as of this encounter (statuses as of 04/06/2023) Active Problems Problem Noted Date Chronic atrial [...] as of this encounter (statuses as of 04/06/2023) Resolved Problems Problem Noted Date Resolved Date [...] as of this encounter (statuses as of 04/06/2023) Immunizations Name Administration Dates Next Due COVID-19 mRNA, LNP-s, No Pre serve, 2-Dose Series ([employer]) 04/03/2021,09/14/2020,08/17/2020 Influenza, Whole Virus 05/03/2018,07/24/2006,07/1998 Pneumococcal Conjugate [...] Sign Reading Time Taken Comments Blood Pressure 112/56 04/06/2023 9:11 AM EDT Pulse 76 04/06/2023 9:11 AM EDT Temperature - - Respiratory Rate - - Oxygen Saturation 97% 04/06/2023 9:11 AM EDT Inhaled Oxygen Concentration - - Weight 98.5 kg (217 lb 3.2 oz) 04/06/2023 9:11 A M EDT Height 180.3 cm (5' 11") 04/06/2023 9:11 AM EDT Body Mass Index 30.29 04/06/2023 9:11 AM EDT documented in this encounter Functional [...] as of this encounter Progress Notes * Christopher Moreno MD - 04/06/2023 10:21 AM EDT I have reviewed the advanced practitioner documentation and agree. 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 More short of breath. I had long discussion with this patient about his anatomy. 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 Traditionally Trifecta valve is not favorable for valve for valve in valve TAVR given the leaflets on the outside. To compound the issue she has low coronary that compromises flow into the left coronary artery The options are snorkel stenting. However that would can find us to use a balloon expandable valve which would be a 23 mm Ricci Minesh valve. I feel that this would not give us reasonable effectiveorifice area. The 2nd option would be to perform basilica and lacerate the left coronary leaflet. Gonzalez bsequently we would implant a 26 mm Evolut valve. Clearly this will be superior given larger effective orifice area. I think our plan would be to do a basilica and implant a CoreValve prosthesis. If this would not work or we are unable to lacerate the leaflet we will revert to plan 1. I also asked him if given all these considerations he would like to reconsider surgery. He is very clear in his mind that he is not interested in surgical solution unless and until it was an emergency. I understand the sentiment. We will proceed with her case this week. He has been instructed to take plavix load 600 mg one night prior to the procedure. Christopher Moreno MD MPH Interventional Cardiology Pager: [phone] 04/06/23 11:13 AM * Megha ANKUR Bustillos - 04/06/2023 9:47 AM EDT Nick Edwards MD Follow up; CC:Here today [...] by Christopher Moreno MD [place] [facility], FLEXIBLE, DIAGNOSTIC N/A 12/16/2022 JEFF DAVIS [...] performed by Jacob Crane MD [place] [facility] Social History Tobacco Use Smoking status: Never [...] of separately billed services. ANKUR Green Cardiology [facility] [address] [facility] [address] 04/06/2023 documented in this encounter Nursing Notes * Nicci Villa MED ASSIST - 04/06/2023 9:10 AM EDT Pt states that he took everything today except his fluid pill. Nicci Villa MED ASSIST 04/06/2023 9:10 AM documented in this encounter Plan of Treatment Upcoming Encounters Date Type Specialty Care Team Description 04/09/2023 Hospital Encounter Cardiac Embedded Linux Developer Christopher Moreno MD [address] [place] [address] 04/09/2023 Surgery Cardiac Embedded Linux Developer Christopher Moreno MD [address] [place] [address] REPLACE AORTIC VALVE, PERCUTANEOUS FEMORAL 04/09/2023 Office Visit Cardiology [facility], Cardiac Recovery Jesse [address] [place] [address] 05/05/2023 Office Visit Nephrology Regina Alonso MD [address] [place] [address] 05/21/2023 Office Visit Family Medicine Nick Edwards MD [address] [place] [address] 06/23/2023 Office Visit Gastroenterology Rebekah Anguiano MD [address] [place] [phone] 07/14/2023 Office Visit Sleep Disorders Sujey Vega, DO [address] [place] [address] Scheduled Procedures Name Priority Associated Diagnoses Date/Ti me REPLACE AORTIC VALVE, PERCUTANEOUS FEMORAL Aortic stenosis 04/09/2023 9:30 AM EDT REPLACE AORTIC VALVE, PERCUTANEOUS FEMORAL Aortic stenosis 04/09/2023 9:30 AM EDT Health Maintenance Due Date Last Done Comments Depression Screening 03/29/2021 03/29/2020 COVID-19 Vaccine Completed 05/21/2022, , 09/14/2020, Additional history exists Zoster Vaccines Completed 08/25/2022, 06/02/2022, 0 11/17/2012 Influenza Vaccine (FLU shot) Completed 05/2023, 04/10/2022, 04/15/2021, Additional history exists documented as of this encounter Medical Devices Implanted Type Area Production Assembly Operator Device Identifier Shelf Expiration Date Model / Serial / Lot Valve Heart Trifec Aortic 23mm - [id number] Implanted:Qty: 1 on 05/16/2014 [place] [facility] N/A: Aorta [facility] JEWEL : CARDIOVASCULAR 07/25/2015 TF-23A / [id number] / documented as of this encounter Visit Diagnoses Diagnosis Nonrheumatic aortic valve stenosis- Primary Aortic valve disorders HTN, goal below 140/90 Unspecified essential hypertension Chronic atrial fibrillation (HCC) Atrial fibrillation Aortic stenosis Aortic valve disorders Aortic stenosis Aortic valve disorders documented in this encounter Advance Directives Latest Code Status on File Code Status Date Activated Date Inactivated Comments Full Code 05/16/2014 4:52 PM 05/19/2014 4:26 PM Thi s order reflects the patients wishes and were consensually agreed upon. Care Teams Soil Tester Relationship Specialty Start Date End Date Nick Edwards MD [address] [place] [address] PCP - General 01/11/04 documented as of this encounter
--- OUTSIDE RECORDS SUMMARY | 2023-08-28 15:15 | External Medical Summary ---
Author Name Unknown Address Unknown Organization [id number]:LABORATORY [facility] - [address] [place] [address] Laboratory Report Ordering Provider Test Date Status ANGLEA RAVI 04/06/2023 11:34:48 Final Observation Date Value Abnormality Reference (Units ) Status ABO 04/06/2023 11:34:48 A Final RH 04/06/2023 11:34:48 Positive Final RED BLOOD CELL ANTIBODY SCREEN 04/06/2023 11:34:48 Negative Final SPECIMEN EXPIRATION DATE 04/06/2023 11:34:48 04/09/2023 23:59 Final Performing Location LABORATORY [facility] - [address] [place] [address]
--- OUTSIDE RECORDS SUMMARY | 2023-08-28 15:15 | External Medical Summary | Summary of Care ---
Author Name Unknown Organization [facility] Address [address] [place] [address] Phone [phone] Care Team Providers Care Order Builder Loader Name Role Phone Nick Edwards MD Primary Care Provider [phone] Reason for Visit * Reason Onset Date Comments Pre Cert/Prior Auth 04/07/2023 Encounter Details Date Type Department Care Team Description 04/07/2023 Telephone Cardiology [facility] [address] [place], [place] [phone] [facility] [address] [place], [place] [phone] Pre Cert/Prior Auth Allergies Active Allergy Reactions Severity Noted Date [...] mRNA, LNP-s, No Pre serve, 2-Dose Series ([employer]) 04/03/2021,09/14/2020,08/17/2020 Influenza, Whole Virus 05/03/2018,07/24/2006 Pneumococcal Conjugate [...] encounter Miscellaneous Notes * Telephone Encounter - Farhad Mitchell RPh - 04/08/2023 3:18 PM EDT [place] for clopidogrel load was approved by insurance. Farhad Mitchell RPh documented in this encounter Plan of Treatment Upcoming Encounters Date Type Specialty Care Team Description 04/09/2023 Hospital Encounter Cardiac Education Instructor Christopher Moreno MD [address] [place] [address] 04/09/2023 Surgery Cardiac Education Instructor Christopher Moreno MD [address] [place], [place] [phone] REPLACE AORTIC VALVE, PERCUTANEOUS FEMORAL 04/09/2023 Office Visit Cardiology [place], Cardiac Recovery [facility] [address] [place], [place] [phone] 04/20/2023 Office Visit Cardiology Jennifer Morse CRNP [address] [place] [address] 05/05/2023 Office Visit Nephrology Regina Alonso MD [address] [place] [address] 05/20/2023 Laboratory Laboratory Gema Wolfe [address] [place] [address] 05/20/2023 Office Visit Cardiology Jennifer Morse CRNP [address] [place] [address] 05/21/2023 Office Visit Family Medicine Nick Edwards MD [address] [place] [phone] 06/16/2023 Cardiac Studies Cardiac Studies 06/23/2023 Office Visit Gastroenterology Rebekah Anguiano MD [address] [place] [address] [place] [address] 07/14/2023 Office Visit Sleep Disorders Sujey Vega DO [address] [place] [address] Scheduled Procedures Name Priority Associated Diagnoses Date/Ti [...] this encounter Medical Devices Implanted Type Area Pullboat Engineer Device Identifier Shelf Expiration Date Model / Serial / Lot Valve Heart Trifec Aortic 23mm - [id number] Implanted:Qty: 1 on 05/16/[address] [facility] N/A: Aorta [facility] : CARDIOVASCULAR 07/25/2015 TF-23A / [id number] / documented as of this encounter Advance Directives Latest Code Status on File Code Status Date Activated Date Inactivated Comments Full Code 05/16/2014 4:52 PM 05/19/2014 4:26 PM Thi s order reflects the patients wishes and were consensually agreed upon. Care Teams Order Builder Loader Relationship Specialty Start Date End Date Nick Edwards MD [address] [place] [address] PCP - General 01/11/04 documented as of this encounter
--- OUTSIDE RECORDS SUMMARY | 2023-08-28 15:15 | External Medical Summary ---
Author Name Unknown Address Unknown Organization K01:LABORATORY [facility] - [address] [facility] [address] [place] [address] Laboratory Report Ordering Provider Test Date Status ARABELLA JONES 04/09/2023 08:28:13 Final Observation Date Value Abnormality Reference (Units ) Status Magnesium 04/09/2023 08:28:13 1.5 1.5-2.6 (m g/dL) Final Performing Location LABORATORY [facility] - [address] [place] [address]
--- OUTSIDE RECORDS SUMMARY | 2023-08-28 15:15 | External Medical Summary | Summary of Care ---
Author Name Unknown Organization [facility] Address [address] [place] [address] Phone [phone] Care Team Providers Care Chef Head Name Role Phone Nick Edwards MD Primary Care Provider [phone] Encounter Details Date Type Department Care Team Description 04/06/2023 Orders Only [facility], Cardiac Recovery Suite, [facility] [address] [place] [address] Polly Muse, RN Aortic stenosis* Allergies Active Allergy Reactions Severity Noted Date [...] of 04/06/2023) Active Problems Problem Noted Date Other cirrhosis of liver 11/13/2022 Type 2 [...] goal below 140/90 09/04/2014 S/P AVR 05/16/2014 Vitamin D deficiency 05/02/2011 Steatohepatitis, non-alcoholic 0 [...] 11/10/2018 Overview: ICD-10 update of inactive term Aortic valve stenosis 10/12/2012 05/10/2018 HTN, goal below 140/80 02/23/2012 5 Overview: [...] mRNA, LNP-s, No Pre serve, 2-Dose Series ([employer] 04/03/2021,09/14/2020,08/17/2020 Influenza, Whole Virus 05/03/2018,07/24/2006 Pneumococcal Conjugate [...] Encounters Date Type Specialty Care Team Description 04/06/2023 Office Visit Cardiology Christopher Moreno MD [address] [place] [address] Arrived 04/09/2023 Hospital Encounter Cardiac Ostrich Farmer Christopher Moreno MD [address] [place] [address] 04/09/2023 Surgery Cardiac Ostrich Farmer Christopher Moreno MD [address] [place] [address] REPLACE AORTIC VALVE, PERCUTANEOUS FEMORAL 04/09/2023 Office Visit Cardiology [place], Cardiac Recovery Jesse [address] [place] [address] 05/05/2023 Office Visit Nephrology Regina Alonso MD [address] [place] [address] 05/21/2023 Office Visit Family Medicine Nick Edwards MD [address] [place] [address] 06/23/2023 Office Visit Gastroenterology Rebekah Anguiano MD [address] [facility] [address] [place] [phone] 07/14/2023 Office Visit Sleep Disorders Sujey Vega, DO [address] [place] [address] Scheduled Orders Name Type Priority Associated Diagnoses Orde r Schedule BASIC METABOLIC PANEL Lab Routine Aortic stenosis Expected: 04/13/2023, Expires: 05/07/2023 CBC Lab Routine Aortic stenosis Expected: 04/06/2023, Expires: 05/07/2023 PT INR Lab Routine Aortic stenosis Expected: 04/06/2023, Expires: 05/07/2023 HEPATIC FUNCTION PANEL Lab Routine Aortic stenosis Expected: 04/06/2023, Expires: 05/07/2023 TYPE AND SCREEN Lab Routine Aortic stenosis Expected: 04/06/2023, Expires: 05/07/2023 Scheduled Procedures Name Priority Associated Diagnoses Date/Ti [...] this encounter Medical Devices Implanted Type Area Helper Coordinator Device Identifier Shelf Expiration Date Model / Serial / Lot Valve Heart Trifec Aortic 23mm - [id number] Implanted:Qty: 1 on 05/16/2014 [place] [facility] [place] N/A: Aorta [facility] JUAN : CARDIOVASCULAR 07/25/2015 TF-23A / [id number] / documented as of this encounter Visit Diagnoses Diagnosis Aortic stenosis- Primary Aortic valve disorders Aortic stenosis Aortic valve disorders documented in this encounter Advance Directives Latest Code Status on File Code Status Date Activated Date Inactivated Comments Full Code 05/16/2014 4:52 PM 05/19/2014 4:26 PM Thi s order reflects the patients wishes and were consensually agreed upon. Care Teams Chef Head Relationship Specialty Start Date End Date Nick Edwards MD [address] [place], [place] [phone] PCP - General 01/11/04 documented as of this encounter
--- OUTSIDE RECORDS SUMMARY | 2023-08-28 15:15 | External Medical Summary ---
Author Name Unknown Address Unknown Organization [id number]:[facility] [place] [address] [place] [address] Laboratory Report Ordering Provider Test Date Status WATSON RIVERO 04/21/2023 07:04:04 Final Observation Date Value Abnormality Reference (Units ) Status WBC, Total 04/21/2023 07:04:04 4.74 4.00-10.8 0 (K/uL) Final RBC 04/21/2023 07:04:04 3.19 4.50-5.25 (M/uL) Final Hemoglobin 04/21/2023 07:04:04 10.1 Below low normal 14 .0-16.8 (g/dL) Final Anemia reflex testing trigge rs on a HGB < 12.0 for Females and HGB < 13.0 for Males in accordance with the WHO Anemia Guidelines
Anemia reflex testing triggers on a HGB < 12.0 for Females and HGB < 13.0 for Males in accordance with the WHO Anemia Guidelines HCT 04/21/2023 07:04:04 31.3 Below low normal 40. 0-48.4 (%) Final MCV 04/21/2023 07:04:04 98.1 82.0-99.5 (fL) Final MCH 04/21/2023 07:04:04 31.7 27.0-34.0 (pg) Final MCHC 04/21/2023 07:04:04 32.3 32.0-36.0 (g/dL) Final RDW 04/21/2023 07:04:04 14.7 11.5-15.5 (%) Final Platelets 04/21/2023 07:04:04 87 Below low normal 140 -400 (K/uL) Final MPV 04/21/2023 07:04:04 10.6 6.6-11.1 ( fL) Final Nucleated erythrocytes/100 leukocytes [Ratio] in Blood by Automated count 04/21/2023 07:04:04 0 <=0 (/100 WBCs) Final Performing Location [facility] [address] [facility] [address]
--- OUTSIDE RECORDS SUMMARY | 2023-08-28 15:15 | External Medical Summary ---
Author Name Unknown Address Unknown Organization K01:[facility] [place] [facility] [address] [place] [address] Laboratory Report Ordering Provider Test Date Status CONCHA GREGORY 04/09/2023 08:28:13 Final Exclude Heart Failure: <300 pg/mL
Diagnose Heart Failure:
Age <50 yr: >450 pg/mL
50-75 yr: >900 pg/mL
>75 yr: >1800 pg/mL
GFR is 30-59 mL/min: >1200 pg/mL or Age- adjusted values
GFR <30 mL/min: do not use, not reliable

Prognostic threshold: 1000 pg/mL Observation Date Value Abnormality Reference (Units ) Status BNP, Pro-hormone 04/09/2023 08:28:13 3682 Above high no rmal <300 (pg/mL) Final Performing Location [facility] [place] [facility] [address] [place] [address]
--- OUTSIDE RECORDS SUMMARY | 2023-08-28 15:15 | External Medical Summary ---
Author Name Unknown Address Unknown Organization K01:[facility] [place] [address] [place] [address] Laboratory Report Ordering Provider Test Date Status ANGELA RAVI 04/06/2023 11:34:48 Final Observation Date Value Abnormality Reference (Units ) Status Albumin 04/06/2023 11:34:48 3.4 Below low normal 3.8-5.0 (g/dL) Final AST (Aspartate aminotransferase) 04/06/2023 11:34:48 52 Above high normal 10-50 (U/L) Final Alk Phos 04/06/2023 11:34:48 289 Above high normal 35-130 (U/L) Final ALT (Alanine aminotransferase) 04/06/2023 11:34:48 37 10-50 (U/L) Final Bilirubin, Total 04/06/2023 11:34:48 1.0 <=1.2 (mg/dL) Final Bilirubin, Direct 04/06/2023 11:34:48 0.4 Above high normal 0.0-0.3 (mg/dL) Final Protein 04/06/2023 11:34:48 7.0 6.0-8.3 (g/dL) Final Performing Location LAB[facility] [place] [address] [place] [address]
--- OUTSIDE RECORDS SUMMARY | 2023-08-28 15:15 | External Medical Summary | Summary of Care ---
Author Name Unknown Organization [facility] Address [address] [place] [address] Phone [phone] Care Team Providers Care Garage Mechanic Name Role Phone Nick Edwards MD Primary Care Provider [phone] Reason for Visit * Reason Comments Follow Up Outpatient Testing * Opinion/Recommendation - Change # of Visits to 1 (Within 10 days (routine)) - Authorized Specialty Diagnoses / Procedures Referred By Contact Referred To Contact Cardiovascular Medicine / Cardiology Diagnoses S/P Nick Quiñones MD [address] [place] [address] Christopher Moreno MD [address] [place] [address] Referral ID Status Reason Start Date Expiration Date Visits Requested Visits Authorized [id number] Authorized Specialty Services Required 04/02/2023 04/02/[phone] Encounter Details Date Type Department Care Team Description 04/06/2023 Office Visit [facility] [address] [place], [place] [phone] Christopher Moreno MD [address] [place], [place] [phone] Nonrheumatic aortic valve stenosis*; HTN, goal below [...] mRNA, LNP-s, No Pre serve, 2-Dose Series ([employer]) 04/03/2021,09/14/2020,08/17/2020 Influenza, Whole Virus 05/03/2018,07/24/2006,07/1998 Pneumococcal Conjugate [...] Christopher Moreno MD MPH Interventional Cardiology Pager: [phone] 04/06/23 11:13 AM * Megha ANKUR Bustillos [...] by Christopher Moreno MD at CARDIAC LABS [facility] EGD, FLEXIBLE, DIAGNOSTIC N/A 12/16/2022 [facility], EGD , non-bleeding gastric ulcer [...] performed by Jacob Crane MD at OR [facility] Social History Tobacco Use Smoking status: Never [...] ANKUR Green Cardiology [facility] [place] [address] [facility] [address] 04/06/2023 documented in this encounter Nursing Notes * Nicci Villa MED ASSIST - 04/06/2023 9:10 AM EDT Pt states that he took everything today except his fluid pill. Nicci Villa MED ASSIST 04/06/2023 9:10 AM documented in this encounter Plan of Treatment Upcoming Encounters Date Type Specialty Care Team Description 04/09/2023 Hospital Encounter Cardiac Staking Technician Christopher Moreno MD [address] [place] [address] 04/09/2023 Surgery Cardiac Staking Technician Christopher Moreno MD [address] [place] [address] REPLACE AORTIC VALVE, PERCUTANEOUS FEMORAL 04/09/2023 Office Visit Cardiology [place], Cardiac Recovery Jesse [address] [place] [address] 05/05/2023 Office Visit Nephrology Regina Alonso MD [address] [place] [address] 05/21/2023 Office Visit Family Medicine Nick Edwards MD [address] [place] [address] 06/23/2023 Office Visit Gastroenterology Rebekah Anguiano MD [address] [place] [phone] 07/14/2023 Office Visit Sleep Disorders Sujey Vega, DO [address] [place] [address] Scheduled Procedures Name Priority Associated Diagnoses Date/Ti [...] this encounter Medical Devices Implanted Type Area Foreman Shipping Department Device Identifier Shelf Expiration Date Model / Serial / Lot Valve Heart Trifec Aortic 23mm - [id number] Implanted:Qty: 1 on 05/16/2014 at OR [facility] N/A: Aorta [facility] JEWEL : CARDIOVASCULAR 07/25/2015 TF-23A / [id number] / documented as of this encounter Visit [...] and were consensually agreed upon. Care Teams Garage Mechanic Relationship Specialty Start Date End Date Nick Edwards MD [address] [place] [address] PCP - General 01/11/04 documented as of this encounter
--- OUTSIDE RECORDS SUMMARY | 2023-08-28 15:15 | External Medical Summary ---
Author Name Unknown Address Unknown Organization K01:LAB[facility]ATORY [facility] - [address] [facility] [address] [place] [address] Laboratory Report Ordering Provider Test Date Status WATSON RIVERO 04/21/2023 07:04:04 Final Observation Date Value Abnormality Reference (Units ) Status SYNC LEUKOCYTES IN BLOOD BY AUTOMATED COUNT 04/21/2023 07:04:04 4.74 4.00-10.80 (K/uL) Final Segs 04/21/2023 07:04:04 63.6 40.0-75.0 (%) Final Lymphs % 04/21/2023 07:04:04 21.7 18.0-42.0 (%) Final Monos 04/21/2023 07:04:04 9.5 1.0-11.0 (%) Final Eosinophils 04/21/2023 07:04:04 4.6 0.0-6.0 (%) Final Basos 04/21/2023 07:04:04 0.4 0.0-2.0 (%) Final Immature Granulocyte, Percent 04/21/2023 07:04:04 0.2 0.0-2.0 (%) Final Absolute Segs 04/21/2023 07:04:04 3.01 1.80-7.70 (K/uL) Final Lymphs, absolute 04/21/2023 07:04:04 1.03 1.00-4.80 (K/ul) Final Monos, Abs 04/21/2023 07:04:04 0.45 0.00-1.10 (K/uL) Final Eos, Abs 04/21/2023 07:04:04 0.22 0.00-0.70 (K/uL) Final Basos, Abs 04/21/2023 07:04:04 0.02 0.00-0.20 (K/uL) Final Immature Granulocytes, Number 04/21/2023 07:04:04 0.01 0.00-0.20 (K/uL) Final Performing Location LABORATORY [facility] - [address] [facility] [address]
--- OUTSIDE RECORDS SUMMARY | 2023-08-28 15:15 | External Medical Summary ---
Author Name Unknown Address Unknown Organization K01:[facility] - Formerly named [facility] [address] [place] [id number] Laboratory Report Ordering Provider Test Date Status WATSON RIVERO 04/21/2023 07:04:04 Final Observation Date Value Abnormality Reference (Units ) Status BUN 04/21/2023 07:04:04 48 Above high normal 6-20 (mg/dL) Final Creatinine 04/21/2023 07:04:04 2.1 Above high normal 0.6-1.2 (mg/dL) Final Glomerular filtration rate/1.73 sq M.predicted [Volume Rate/Area] in Serum, Plasma or Blood by Creatinine-based formula (CKD-EPI) 04/21/2023 07:04:04 30 Below low normal >=60 (mL/min) Final eGFR is calculated based on the CKD-EPI 2020 equation SODIUM 04/21/2023 07:04:04 140 135-146 (m mol/L) Final Potassium 04/21/2023 07:04:04 4.3 3.5-5.1 (m mol/L) Final Cl 04/21/2023 07:04:04 104 98-107 (mm ol/L) Final CO2 04/21/2023 07:04:04 27 22-32 (mmo l/L) Final Anion gap 04/21/2023 07:04:04 9 7-15 (mmol /L) Final Glucose 04/21/2023 07:04:04 142 Above high normal 70 -120 (mg/dL) Final Calcium 04/21/2023 07:04:04 8.4 8.4-10.2 ( mg/dL) Final Performing Location [facility] - [address] [place] [address]
--- OUTSIDE RECORDS SUMMARY | 2023-08-28 15:15 | External Medical Summary ---
Author Name Unknown Address Unknown Organization K01:[facility] - [address] [place] [address] Laboratory Report Ordering Provider Test Date Status ANGELA RAVI 04/21/2023 07:04:04 Final Observation Date Value Abnormality Reference (Units ) Status Magnesium 04/21/2023 07:04:04 1.7 1.5-2.6 (m g/dL) Final Performing Location [facility] - [address] [place] [address]
--- OUTSIDE RECORDS SUMMARY | 2023-08-28 15:16 | External Medical Summary | Summary of Care ---
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 Name Role Phone Nick Edwards MD Primary Care Provider [phone] Reason for Visit * Auth/Cert Specialty Diagnoses / Procedures Referred By Kalyn t Referred To Contact Diagnoses Aortic stenosis Aortic stenosis [I35.0] Procedures CORONARY ANGIOGRAPHY W/LEFT HEART CATH CORONARY ANGIOGRAPHY W/LEFT HEART CATH Referral ID Status Reason Start Date Expiration Date Visits Re quested Visits Authorized [id number] Encounter Details Date Type Department Care Team Description 03/13/2023 Hospital Encounter CRS Waiting C, Cardiac Recovery Suite Waiting Unit, H [address], [place] [id number] Christopher Moreno MD [address] [place] [address] Allergies Active Allergy Reactions Severity Noted Date Comments Felodipine 11/17/2000 plendil Empagliflozin Diarrhea High 06/03/2022 documented as of this encounter (statuses as of 03/14/2023) Medications Medication Sig Dispensed Refills Start Date [...] OR DIRECTED 90 Tablet 1 12/18/2022 Active Pantoprazole Sodium 40 MG Oral Tablet Delayed Release (Protonix)Indicati ons:Gastrointestin al hemorrhage associated with gastric ulcer Take 1 Tablet by mouth in the morning and 1 Tablet in the evening. 60 Tablet 1 12/19/2022 Active Ferrous Sulfate 325 (65 Fe) MG [...] DX E11.9 200 Each 3 02/27/2023 Active documented as of this encounter (statuses as of 03/14/2023) Active Problems Problem Noted Date Other cirrhosis [...] as of this encounter (statuses as of 03/14/2023) Resolved Problems Problem Noted Date Resolved Date [...] as of this encounter (statuses as of 03/14/2023) Immunizations Name Administration Dates Next Due COVID-19 mRNA, LNP-s, No Pre serve, 2-Dose Series (Pfizer) 04/03/2021,09/14/2020,08/17/2020 Influenza, Whole Virus 05/03/2018,07/24/2006 Pneumococcal Conjugate Vacc, 13 Valent (Prevnar) 01/18/2015 Seasonal Influenza, PF, 6 mo ns & Above, IM , (Flulaval) 03/29/2020,05/06/2017 Seasonal Influenza, Quadriva lent Hd (Fluzone Hd) 04/10/2022,04/15/2021 Seasonal Influenza, Quadriva lent, No Preserve, IM [...] Sign Reading Time Taken Comments Blood Pressure 153/43 03/13/2023 1:30 PM EDT Pulse 66 03/13/2023 1:30 PM EDT Temperature 36 C (96.8 F) 03/13/2023 12:30 PM EDT Respiratory Rate 23 03/13/2023 1:30 PM EDT Oxygen Saturation 100% 03/13/2023 1:30 PM EDT Inhaled Oxygen Concentration - - Weight - - Height - - Body Mass Index - - documented in this encounter Functional Status Functional [...] No 05/17/2014 documented as of this encounter Discharge Instructions * Discharge Instr - AVS* ANKUR Foreman - 03/13/2023 12:35 PM EDT CARDIAC RECOVERY SUITE Discharge Date: 03/13/2023 Check your Patient Education Brochure for further information. Please contact your physician, Dr. Moreno of the Department of Cardiology at [phone], during business hours for any questions or test results. For after-hour emergencies call [phone] and have your doctor paged. Scheduling Services is available daily between the hours of 8:00 a.m and 9:00 p.m. by calling . The information below provides you with the instructions and the list of medications you need to betaking following discharge from the hospital. If you have any questions, please ask before leaving.Please carry this letter with you when you see your doctor in the clinic. If you have questions, you can reach us at the numbers above. Diet: heart healthy diet, 2 gram sodium diet Progress to prescribed diet as tolerated. If nausea should occur, have clear liquids only until soft foods can be tolerated. Activity: No strenuous activity for 24 hours A responsible adult must be with the patient for at least 24 hours after surgery. Rest today and tomorrow, and then gradually increase activity as tolerated. DO NOT operate any appliances and/or machinery or sign legal documents for at least 24 hours. You may resume driving on 03/15/2023. Special Instructions: Radial Artery Catheterization Instructions for Post Care Activity: Do not use the arm we used for your procedure today. Do not lift more than 10 lbs for 3 days with the arm used for your procedure. A responsible adult must be with the patient for at least 24 hours after your procedure. Rest todaybut you may gradually resume your usual activity tomorrow. Do not drive, operate any appliances and/or machinery or sign legal documents for at least 24 hours due to the anesthesia. You may wash the wrist with soap and water and you may shower. Do not soak the wrist in water without a waterproof bandage until the small incision is healed. If you notice bleeding, increased swelling, tingling in the fingers or pain in your forearm that is not relieved by Tylenol, please seek medical attention. If you develop a fever over 101 degrees F you should contact your ship superintendent. It is normal to have a small amount of discomfort for up to one week following your procedure but this should continue to improve with time, and not worsen. If you have any questions or are concerned with how your arm is healing, call the doctor who did your procedure at . Keep the puncture site covered with a dry bandage for 24 hours, then remove the bandage. You shouldreplace it every 24 hours or if it gets wet. This should be done until the puncture site has completely healed. Please keep your scheduled follow up appointment with [facility] (Dr. Shriley) on 03/16/2023. Please continue to see your primary care physician (Nick Edwards MD) as scheduled. documented in this encounter H&P Notes * ANKUR Foreman - 03/12/2023 7:48 AM EDT Cardiology H&P The note below has been copied and pasted from an office visit with ANKUR Ledesma and Cayla PRAJAPATI on 02/25/2023. I have reviewed the advanced practitioner documentation and agree. I saw and evaluated the patient on date of service referenced in note and have performed the following medically appropriate historyand/or exam 82 year old male with severe bioprosthetic . 23 mm Trifecta valve in 2013. Vmax on last echocardiogram was 405. This time the velocities are 304 - likely underestimated. He had a recent admission to [facility] for GI bleeding - found to have a bleeding ulcer. He is on eliquis -CHADSVASC of 6. He had another heart failure/ volume overload related admission Time to proceed forward with aortic valve intervention. CT scan of the chest anulus protocol for coronary heights, CT scan of the abdomen / pelvis without contrast, surgical risk stratification, coronary angiogram minimal contrast. Christopher Moreno MD MPH Interventional Cardiology Pager: [phone] 02/25/23 10:11 AM Progress Notes ANKUR Ledesma (Certified Registered Nurse Practitioner) Nurse Practitioner Expand All Collapse All Cardiology Valve Clinic Note 02/25/2023 Primary Deck Supervisor: Dr. Calero/Randi Mendoza PA-C Cardiac Problems: Aortic valve disease, severe calcific aortic valve [...] CHADSVASC 6 (age, DM, HTN, HF, CAD) HPI: Gregorio Davidson is a 82 year old male who was last evaluated with the valve clinic on 07/23/2022. He was found to have severe aortic stenosis, but was asymptomatic. He was instructed to return in 6 months with an echocardiogram. Presenting to the valve clinic today in routine follow up. Here today accompanied by his . He is feeling well overall. Denies a decline in functional status. Endorses some swelling in his legs at the end of the day. He remains fairly active at home and is able to complete all ADLs independently. Reports feeling off balance at times, but no falls/syncope. Occasionally tired and naps, but not daily. He was admitted to [facility] in 11/06/2022 with acute on chronic diastolic heart failure. He was admitted to [facility] on 12/17/2022 with symptomatic anemia. Diagnosed with a GI bleed secondary to a bleeding ulcer while taking Eliquis and Aspirin. Eliquis was held. Denies abnormal bleeding since that time. 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 Denies tobacco, alcohol, and illicit drug use. Rare alcohol use. Denies any known complications with anesthesia. Follows with a dentist routinely. REVIEW OF SYSTEMS: See HPI for pertinent positives. All others negative other than those noted in the HPI. CONSTITUTIONAL: No change in weight, No weakness, + fatigue and No fevers, No sweats or chills. PULMONARY: No cough, sputum, or hemoptysis, No wheezing, No shortness or breath and No recent change in breathing. CARDIOVASCULAR: No chest pain, No dyspnea on exertion, No edema, No palpitations and No syncope. GASTROINTESTINAL: No abdominal pain, No change in bowel habits, No significant heartburn, No nausea, No vomiting, No diarrhea, No constipation, No blood in stools or black tarry stools. No dysphagia. HEMATOLOGIC: No abnormal bleeding and No bruising. NEUROLOGICAL: Normal balance, No headaches and No weakness. Current Outpatient Medications Medication Sig Dispense Refill [...] CAPS Take 1 Capsule by mouth daily. TRUEplus Lancets 33G 2X'S A DAY DX E11.9 200 Each 3 OneTouch Ultra Blue In Vitro Strip (Glucose Blood) 2X'S A DAY DX E11.9 200 Strip 3 Amoxicillin 500 MG Oral Capsule (Amoxil) TAKE 4 CAPSULES BY MOUTH 1/2 HOUR BEFORE DENTAL APPOINTMENT 4 Capsule 2 Metoprolol Succinate ER 25 MG Oral Tablet Extended Release 24 Hour (Toprol XL) Take 0.5 Tablets (12.5 mg) by mouth in the morning. (Patient not taking: Reported on 11/13/2022) 16 Tablet 5 Atorvastatin Calcium 40 MG Oral Tablet (Lipitor) Take 1 Tablet by mouth every evening. 90 Tablet 3 Allopurinol 100 MG Oral Tablet (Zyloprim) TAKE ONE TABLET BY MOUTH DAILY OR DIRECTED 90 Tablet 1 Pantoprazole Sodium 40 MG Oral Tablet Delayed Release (Protonix) Take 1 Tablet by mouth in the morning and 1 Tablet in the evening. 60 Tablet 1 Ferrous Sulfate 325 (65 Fe) MG Oral Tablet (Feosol) Take 1 Tablet by mouth in the morning. 90 Tablet 3 Furosemide 40 MG Oral Tablet (Lasix) TAKE 1 TABLET BY MOUTH EVERY DAY IN THE MORNING 90 Tablet 3 Carvedilol 3.125 MG Oral Tablet (Coreg) 1/2 tab twice daily 30 Tablet 5 hydrALAZINE HCl 10 MG Oral Tablet (Apresoline) Take 0.5 Tablets by mouth in the morning and 0.5 Tablets before bedtime. 30 Tablet 5 No current facility-administered medications for this visit. Review of patient's allergies indicates: Allergen Reactions Jardiance [Empagliflozin] Diarrhea Felodipine plendil Past Medical History: Diagnosis Date Aortic valve [...] Date COLONOSCOPY 06/05/2007 Diverticulosis, repeat 10 yrs EGD, FLEXIBLE, DIAGNOSTIC N/A 12/16/2022 [facility], EGD , non-bleeding gastric ulcer (Ld Class III) / biopsies shows mild to moderate inflammation / MISCELLANEOUS ORDER ([facility] ONLY) 09/04/2003 [place]/ bilateral quad rupture repair and repeat x 1 OTHER 05/06/2007 [place]/ laser vaporizationof prostate REPAIR INITIAL INCISIONAL OR VENTRAL HERNIA; REDUCIBLE Left REPLACEMENT AORTIC VALVE, BYPASS WITH PROSTHETIC VALVE 05/16/2014 REPLACEMENT AORTIC VALVE performed by Jacob Crane MD at OR [facility] Family History Problem Relation Age of Onset Musculo-skeletal Disorder Mother brittle bones Lung Disorder Father asthma Heart Disorder Brother CABG 2013 Other (CKD, ESRD) None Social History Socioeconomic History Marital status: Spouse name: Not on file Number of children: 1 Years of education: Not on file Highest education level: Not on file Occupational History Occupation: retired Employer: [employer] [place] [id number] Tobacco Use Smoking status: Never Smokeless tobacco: Never Vaping Use Vaping Use: Never used Substance and Sexual Activity Alcohol use: Yes Comment: a few drinks/month Drug use: No Sexual activity: Yes Partners: Female Other Topics Concern Service Yes Blood Transfusions No Caffeine Concern No Occupational Exposure No Hobby Hazards No Sleep Concern Yes Comment: uses CPAP for apnea Stress Concern No Weight Concern No Special Diet No Back Care No Exercise No Bike Helmet No Comment: does not ride a bike Seat Belt No Self-Exams Yes Social History Narrative Not on file Social Determinants of Health Financial Resource Strain: Not on file Food Insecurity: Not on file Transportation Needs: Not on file Physical Activity: Not on file Stress: Not on file Social Connections: Not on file Intimate Partner Violence: Not on file Housing Stability: Not on file PHYSICAL EXAM: BP 126/72 (BP Site: Left Arm, BP Position: Sitting, BP Cuff Size: Large) | Pulse 64 | Resp 16 | Wt 97 kg (213 lb 12 oz) | SpO2 98% | BMI 28.99 kg/m | BSA 2.22 m Wt Readings from Last 3 Encounters: 02/25/23 97 kg (213 lb 12 oz) 12/19/22 96.5 kg (212 lb 12.8 oz) 11/28/22 96 kg (211 lb 9.6 oz) General: No acute distress. A+Ox3. +VENETIE HEENT: Normocephalic. Atraumatic. Conjunctiva and sclera clear. NECK: No carotid bruits. No JVD. Carotid upstrokes are brisk. Heart: Irregularly irregular S1 and S2 noted. +2/6 systolic murmur. Lungs: Clear to auscultation. No wheezes, rhonchi, rales. Abdomen: Normal bowel sounds. Soft. Nontender. No masses or organomegaly. No abdominal bruits. Extremities: +trace LE edema. No clubbing or cyanosis. Pulses: radial=2/4, posterior tibial=2/4, dorsalis pedis = 2/4. NEURO: No focal deficits. PSYCH: Normal. DATA: Labs & Imaging Reviewed Below: Echo 02/25/2023 The left ventricular cavity size [...] the severity the prosthetic stenosis has progressed. IMPRESSION/PLAN: 1. Nonrheumatic aortic valve stenosis 2. Stenosis of prosthetic aortic valve, subsequent encounter 3. S/P AVR 2013 -Echocardiogram reviewed with patient today. His velocities have decreased when compared to echocardiogram in June. He has known prosthetic aortic stenosis. NYHA 2-3. EF remains preserved. TakingAmoxicillin for SBE prophylaxis. -Patient was admitted in May 2022 and November 2022 with CHF exacerbations. -Plan to proceed with TAVR work up. 4.Chronic HFpEF 5.Moderate tricuspid regurgitation 6. Moderate aortic regurgitation 7. Moderate pulmonary hypertension (HCC) 8. Moderate mitral regurgitation -Appear euvolemic on exam. Weights are stable. -Continue Lasix 40 mg daily 9. Nonobstructive atherosclerosis of coronary artery -Denies chest pain. -Cardiac catheterization 03/14/2014 without obstructive disease on coronary angiography 10. Paroxysmal atrial fibrillation (HCC) 11. Anemia, unspecified type -Patient recently admitted to [facility] December 2023 with GI bleed. Found to have a bleeding ulcer likely secondary to the use of Eliquis and Aspirin. Has been off Eliquis. Denies further bleeding issues other than a nose bleed. -SNE2UD9-FGEm score of 6 (age, DM, HTN, HF, CAD) -Discussed the option of a Watchman Device, however TAVR will be performed first. Patient care was discussed/coordinated with Dr. Moreno. The patient agrees to the above plan and will call with additional questions or concerns. All questions were answered to the patients satisfaction. ER with all emergencies advised. ANKUR Ledesma documented in this encounter Miscellaneous Notes * Progress Notes - Non-Billable - Sujey Carcamo DO - 03/13/2023 7:44 AM EDT PROGRESS NOTE - Interventional Cardiology [facility]-[address] [address] Name: Gregorio Davidson Date: 03/13/2023 Time: 7:44 AM Name: Gregorio Davidson Referring Provider: Dr. Moreno [facility]: [id number] Referring Deck Supervisor: same as above Procedure Requested: Left heart cath, Coronary angiography Indication for Cath: Severe bioprosthetic (23mm SJM Trifecta Valve) Medical History Medication List (+) DM, if yes, what meds: diet controlled Prior to Admission medications Medication Sig Last Dose Discont. TRUEplus Lancets 33G 2X'S A DAY DX E11.9 Carvedilol 3.125 MG Oral Tablet (Coreg) 1/2 tab twice daily hydrALAZINE HCl 10 MG Oral Tablet (Apresoline) Take 0.5 Tablets by mouth in the morning and 0.5 Tablets before bedtime. Furosemide 40 MG Oral Tablet (Lasix) TAKE 1 TABLET BY MOUTH EVERY DAY IN THE MORNING Ferrous Sulfate 325 (65 Fe) MG Oral Tablet (Feosol) Take 1 Tablet by mouth in the morning. Pantoprazole Sodium 40 MG Oral Tablet Delayed Release (Protonix) Take 1 Tablet by mouth in the morning and 1 Tablet in the evening. Allopurinol 100 MG Oral Tablet (Zyloprim) TAKE ONE TABLET BY MOUTH DAILY OR DIRECTED Atorvastatin Calcium 40 MG Oral Tablet (Lipitor) Take 1 Tablet by mouth every evening. Amoxicillin 500 MG Oral Capsule (Amoxil) TAKE 4 CAPSULES BY MOUTH 1/2 HOUR BEFORE DENTAL APPOINTMENT OneTouch Ultra Blue In Vitro Strip (Glucose [...] OR Take 1 Tablet by mouth daily. (+) HTN (-) Prior CHF in last 2 weeks, NYHA Class: 0 (-) PVD (-) Dialysis (-) Smoked in the past year (+) HLD (-) Family heart disease (male<55, female<65) (-) Prior AR (-) Prior PCI (+) Valve Surgery, (23mm SJM Trifecta Valve) bioprosthetic 05/2014 (-) CABG (-) Stroke/TIA (-) COPD/Emphysema (+) ASA in the last 24 hours (-) Dual Anti-platelet Therapy (-) History of HIT (-) Allergic to Dye Review of patient's allergies indicates: Allergen Reactions Jardiance [Empagliflozin] Diarrhea Felodipine plendil [facility] Frailty Score: 3 Very Fit - 1 Well - 2 Managing Well - 3 Vulnerable - 4 Mildly Frail - 5 Moderately Frail - 6 Severely Frail - 7 Very Severely Frail - 8 Terminally Ill - 9 Current Presentation Admission Date: (Not on file) | Admission Time: 999 CAD Presentation: (None, Unlikely to be ischemic, Stable, Unstable): none Anginal Class: 0 Anti-Anginals in the last 2 weeks: + Beta Blockers | - Calcium Channel | - Long Acting Nitrates LV Dysfunction/ Cardiomyopathy: No EF in last 6 months: 60-64 % Stress Test (Last 6 months): no | Type of stress test: NA Result (No test, Low Risk, Intermediate Risk, High Risk, Negative, Indeterminate): no test Labs Last Creatinine: Lab Results Component Value Date/Time CREATININE - [facility] 1.9 (H) 11/28/2022 01:27 PM CREATININE - [facility] 1.5 (H) 08/02/2020 02:01 PM CREATININE, RANDOM URINE - [facility] 119 10/17/2022 02:06 PM CREATININE, RANDOM URINE - [facility] 164 03/08/2020 08:47 AM Last GFR: No components found for: E GLOM FILT RATE Last INR: INR Date Value 11/28/2022 1.4 (H) 11/06/2015 1.03 Last Hb/Hct: HGB (g/dL) Date Value 12/19/2022 9.5 (L) 08/02/2020 10.9 (L) HCT (%) Date Value 12/19/2022 30.7 (L) 08/02/2020 34.1 (L) Misc. Notes 82 year old male with PMHx PAF (NOT on AC 2/2 ulcer), SANDI on CPAP, HTN, DLD, DM2, recurrent right pneumothorax, CKD III, nonobstructive CAD (cath 2013), aortic valve disease s/p bioprothestic 23mm SJM Trifecta 2014, [place] CRUZ cirrhosis, gout presenting with severe bioprosthetic referred for LHC/cors. TTE 02/15/2023: Echo 02/25/2023 The left ventricular cavity size [...] Ao mean P.8 mmHg NOAH(I,D): 1.1 cm2 No dye allergy Not on AC CKD III (Cr 1.9) documented in this encounter Plan of Treatment Upcoming Encounters Date Type Specialty Care Team Description 03/16/2023 Office Visit Cardiothoracic Surgery Jose Antonio Singh MD [address] [place] [address] 03/16/2023 Appointment Radiology 05/05/2023 Office Visit Nephrology Regina Alonso MD [address] [place] [address] 05/21/2023 Office Visit Family Medicine Nick Edwards MD [address] [place] [address] 06/23/2023 Office Visit Gastroenterology Rebekah Anguiano MD [address] [place] [address] 07/14/2023 Office Visit Sleep Disorders Gary Sujey Gray, DO [address] [place] [address] Scheduled Orders Name Type Priority Associated Diagnoses Orde r Schedule EKG EKG Routine SOB (shortness of breath) One Time for 1 Occurrences starting 03/13/2023 until 03/13/2023 Health Maintenance Due Date Last Done Comments Depression Screening 03/29/2021 03/29/2020 Influenza Vaccine (FLU shot) (#1) 2023 04/10/2022, 04/15/2021, 03/29/2020, Additional history exists COVID-19 Vaccine Completed 05/21/2022, , 09/14/2020, Additional history exists Zoster Vaccines Completed 08/25/2022, 05/07, 11/17/2012 documented as of this encounter Medical Devices Implanted Type Area Legal Clerk Device Identifier Shelf Expiration Date Model / Serial / Lot Valve Heart Trifec Aortic 23mm - [id number] Implanted:Qty: 1 on 05/16/2014 at OR [facility] N/A: Aorta [facility] [employer]EWEL : CARDIOVASCULAR 07/25/2015 TF-23A / [id number] / documented as of this encounter Procedures Procedure Name Priority Date/Time Associated Diagnosis Comments RENAL FUNCTION PANEL STAT 03/13/2023 10:24 AM EDT CBC STAT 03/13/2023 10:24 AM EDT documented in this encounter Results * (ABNORMAL) RENAL FUNCTION PANEL (03/13/2023 10:24 AM EDT) BUN 37(H) 6 - 20 mg/dL 03/13/2023 11:00 AM EDT LAB[facility] Creatinine 1.8(H) 0.6 - 1.2 mg/dL 03/13/2023 11:00 AM EDT LABORATORY GM Estimated Glomerular Filtration Rate 36(L) >=60 mL/min 03/13/2023 11:00 AM EDT [facility] Comment:eGFR is calculated b ased on the CKD-EPI 2020 equation Sodium 140 135 - 146 mmol/L 03/13/2023 11:00 AM EDT [facility] Potassium 3.8 3.5 - 5.1 mmol/L 03/13/2023 11:00 AM EDT [facility] Chloride 101 98 - 107 mmol/L 03/13/2023 11:00 AM EDT [facility] CO2 29 22 - 32 mmol/L 03/13/2023 11:00 AM EDT [facility] Anion Gap 10 7 - 15 mmol/L 03/13/2023 11:00 AM EDT [facility] Glucose 134(H) 70 - 120 mg/dL 03/13/2023 11:00 AM EDT [facility] Calcium 8.7 8.4 - 10.2 mg/dL 03/13/2023 11:00 AM EDT [facility] Albumin 3.5(L) 3.8 - 5.0 g/dL 03/13/2023 11:00 AM EDT [facility] Phosphorus 3.4 2.5 - 4.8 mg/dL 03/13/2023 11:00 AM EDT LABORATORY C Blood Venous blood specimen / Unknown Venipuncture / Unknown 03/13/2023 10:24 AM EDT 03/13/2023 10:34 AM EDT Ryder LERMANP LAB BLOOD ORDERABLE S LABORATORY [facility] [address] [place] [address] * (ABNORMAL) CBC (03/13/2023 10:24 AM EDT) WBC 5.76 4.00 - 10.80 K/uL 03/13/2023 11:19 AM EDT LAB[facility] RBC 3.41 4.50 - 5.25 M/uL 03/13/2023 11:19 AM EDT LAB[facility] HGB 10.4(L) 14.0 - 16.8 g/dL 03/13/2023 11:19 AM EDT LAB[facility] HCT 33.2(L) 40.0 - 48.4 % 03/13/2023 11:19 AM EDT LAB[facility] MCV 97.4 82.0 - 99.5 fL 03/13/2023 11:19 AM EDT LABORATORY [facility] MCH 30.5 27.0 - 34.0 pg 03/13/2023 11:19 AM EDT LABORATORY [facility] MCHC 31.3 32.0 - 36.0 g/dL 03/13/2023 11:19 AM EDT LABORATORY [facility] RDW 15.9 11.5 - 15.5 % 03/13/2023 11:19 AM EDT LABORATORY [facility] PLT 94(L) 140 - 400 K/uL 03/13/2023 11:19 AM EDT LABORATORY [facility] MPV 10.3 6.6 - 11.1 fL 03/13/2023 11:19 AM EDT LABORATORY [facility] nRBCs 0 <=0 /100 WBCs 03/13/2023 11:19 AM EDT LABORATORY [facility] Blood Venous blood specimen / Unknown Venipuncture / Unknown 03/13/2023 10:24 AM EDT 03/13/2023 10:35 AM EDT Ryder LERMANP LAB BLOOD ORDERABLE S LABORATORY [facility] [address] [place] [address] documented in this encounter Visit Diagnoses Diagnosis SOB (shortness of breath) Shortness of breath documented in this encounter Administered Medications Inactive Administered Medications - up to 3 most recent administrations Medication Order MAR Action Action Date Dose Rate Site Acetaminophen (Tylenol) tab 650 mg 650 mg, Oral, Q6H PRN Pain, Mild, Other, non cardiac pain, Starting on Thu03/13/23 at 1226, Until Thu03/13/23 at 2013, Maximum of 4 grams (4000 mg) per day., Post-op atorvaSTATin (Lipitor) tab 80 mg 80 mg, Oral, ONCE, On Thu03/13/23 at 1015, For 1 dose, Pre-Op Given 03/13/2023 10:49 AM EDT 40 mg fentaNYL (PF) inj 25 mcg 25 mcg, IV Push, PRN Pain, Severe, Starting on Thu03/13/23 at 1154, Until Thu03/13/23 at 1353, For 2 hours, To be administered in Cardiac Revenue Investigator intra-procedure only When given IV Push its recommended that the dose be given over 3 to 5 minutes. , Intra-Op Given 03/13/2023 11:49 AM EDT 25 mcg hEParin inj 5,000 Units 5,000 Units, Intra-Arterial, PRN Other, Inadequate anticoagulation, Starting on Thu03/13/23 at 1155, Until Thu03/13/23 at 1213, For 1 dose, To be administered in Cardiac Revenue Investigator intra-procedure only , Intra-Op Given 03/13/2023 12:13 PM EDT 5,000 Units Ioversol (Optiray 350) 74 % inj 30 mL 30 mL, Intracoronary, ONCE, On Thu03/13/23 at 1300, For 1 dose, Intra-Op Given 03/13/2023 12:21 PM EDT 30 mL midazolam (Versed) 2 MG/2ML inj 0.5 mg 0.5 mg, IV Push, PRN Anxiety, Starting on Thu03/13/23 at 1155, Until Thu03/13/23 at 1354, For 2 hours, To be administered in Cardiac Revenue Investigator intra-procedure only, Intra-Op Given 03/13/2023 11:49 AM EDT 0.5 mg NSS infusion Intravenous, at 100 mL/hr, CONTINUOUS, Starting on Thu03/13/23 at 1015, Until Thu03/13/23 at 2013, Pre-Op New Bag 03/13/2023 10:41 AM EDT 100 mL/hr documented in this encounter Active and Recently Administered Medications Times are shown in EDT. Scheduled Medication Order 03/11/2023 03/12/2023 03/13/2023 atorvaSTATin (Lipitor) tab 80 mg (COMPLETED) 80 mg, Oral, ONCE, On Thu03/13/23 at 1015, For 1 dose, Pre-Op 1049 (Given - Provid er: Andreina Yeung RN - Comment: pt already took 40mg this AM at home) Ioversol (Optiray 350) 74 % inj 30 mL (COMPLETED) 30 mL, Intracoronary, ONCE, On Thu03/13/23 at 1300, For 1 dose, Intra-Op 1221 (Given - Provid er: Bud Dumont OCCUPATIONAL THERAPY ASST) Continuous Medication Order 03/11/2023 03/12/2023 03/13/2023 NSS infusion Intravenous, at 100 mL/hr, CONTINUOUS, Starting on Thu03/13/23 at 1015, Until Thu03/13/23 at 2012, Pre-Op 1041 (New Bag - Prov ider: Andreina Yeung RN)2012 (Due: Stopped) PRN Medication Order 03/11/2023 03/12/2023 03/13/2023 Acetaminophen (Tylenol) tab 650 mg 650 mg, Oral, Q6H PRN Pain, Mild, Other, non cardiac pain, Starting on Thu03/13/23 at 1226, Until Thu03/13/23 at 2012, Maximum of 4 grams (4000 mg) per day., Post-op fentaNYL (PF) inj 25 mcg 25 mcg, IV Push, PRN Pain, Severe, Starting on Thu03/13/23 at 1154, Until Thu03/13/23 at 1353, For 2 hours, To be administered in Cardiac Revenue Investigator intra-procedure only When given IV Push its recommended that the dose be given over 3 to 5 minutes. , Intra-Op 1149 (Given - Provid er: Glenis Vázquez RN) hEParin inj 5,000 Units (COMPLETED) 5,000 Units, Intra-Arterial, PRN Other, Inadequate anticoagulation, Starting on Thu03/13/23 at 1155, Until Thu03/13/23 at 1213, For 1 dose, To be administered in Cardiac Revenue Investigator intra-procedure only , Intra-Op 1213 (Given - Provid er: Glenis Vázquez RN) midazolam (Versed) 2 MG/2ML inj 0.5 mg 0.5 mg, IV Push, PRN Anxiety, Starting on Thu03/13/23 at 1155, Until Thu03/13/23 at 1354, For 2 hours, To be administered in Cardiac Revenue Investigator intra-procedure only, Intra-Op 1149 (Given - Provid er: Glenis Vázquez RN) documented in this encounter Advance Directives Latest Code Status on File Code Status Date Activated Date Inactivated Comments Full Code 05/16/2014 4:52 PM 05/19/2014 4:26 PM Thi s order reflects the patients wishes and were consensually agreed upon. Care Teams Timber Buyer Relationship Specialty Start Date End Date Nick Edwards MD [address] [place] [address] PCP - General 01/11/04 documented as of this encounter"
--- OUTSIDE RECORDS SUMMARY | 2023-08-28 15:16 | External Medical Summary | Summary of Care ---
Author Name Unknown Organization [facility] Address [address] [facility] [place] [address] Phone [phone] Care Team Providers Care Utility Helicopter Repairer Name Role Phone Nick Edwards MD Primary Care Provider [phone] Reason for Visit * Reason Comments eRx-Medication Refill Encounter Details Date Type Department Care Team Description 03/09/2023 Refill [facility] [address] [place] [address] Nick Edwards MD [address] [place] [address] Diastolic heart failure, unspecified HF chronicity (HCC) Allergies Active Allergy Reactions Severity Noted Date Comments Felodipine 11/17/2000 plendil Empagliflozin Diarrhea High 06/03/2022 documented as of this encounter (statuses as of 03/11/2023) Medications Medication Sig Dispensed Refills Start Date [...] as of this encounter (statuses as of 03/11/2023) Active Problems Problem Noted Date Other cirrhosis [...] as of this encounter (statuses as of 03/11/2023) Resolved Problems Problem Noted Date Resolved Date [...] as of this encounter (statuses as of 03/11/2023) Immunizations Name Administration Dates Next Due COVID-19 [...] encounter Miscellaneous Notes * Telephone Encounter - Parris Cotto, [facility] - 03/11/2023 9:53 AM EDTRefused Prescriptions: Disp Refills hydrALAZINE HCl 10 MG Oral Tablet (Apresol*90 Tab*0 Sig: TAKE 1/2 TABLETS BY MOUTH IN THE MORNING AND 1/2 TABLETS BEFORE BEDTIME.Refused By: PARRIS COTTO for Refusal: Too soon documented in this encounter Plan of Treatment Upcoming Encounters Date Type Specialty Care Team Description 03/13/2023 Hospital Encounter Cardiac [employer] Christopher Moreno MD [address] [place] [address] 03/13/2023 Surgery [facility]iac [employer] Christopher Moreno MD [address] [place] [address] CORONARY ANGIOGRAPHY W/LEFT HEART CATH 03/13/2023 Office Visit Cardiology [place], [facility]iac [facility] [address] [place] [address] 03/16/2023 Office Visit Cardiothoracic Surgery Jose Antonio Singh MD [address] [place] [address] 03/16/2023 Appointment Radiology 05/05/2023 Office Visit Nephrology Regina Alonso MD [address] [place], [place] [phone] 05/21/2023 Office Visit Family Medicine Nick Edwards MD [address] [place] [address] 06/23/2023 Office Visit Gastroenterology Rebekah Anguiano MD [address] [facility] [place] [address] 07/14/2023 Office Visit Sleep Disorders Sujey Vega DO [address] [place] [address] Scheduled Procedures Name Priority Associated Diagnoses Date/Ti me CORONARY ANGIOGRAPHY W/LEFT HEART CATH Aortic stenosis 03/13/2023 10:00 AM EDT Health Maintenance Due Date Last Done Comments Depression Screening, Annual for Pts 12 and Over 03/29/2021 03/29/2020 Influenza Vaccine (FLU shot) (#1) 2023 04/10/2022, 04/15/2021, 03/29/2020, Additional history exists COVID-19 Vaccine Completed 05/21/2022, , 09/14/2020, Additional history exists Zoster Vaccines Completed 08/25/2022, 05/07, 11/17/2012 documented as of this encounter Medical Devices Implanted Type Area Lay Out Carpenter Device Identifier Shelf Expiration Date Model / Serial / Lot Valve Heart Trifec Aortic 23mm - [id number] Implanted:Qty: 1 on 05/16/2014 at OR [facility] N/A: Aorta [employer]UAN : CARDIOVASCULAR 07/25/2015 TF-23A / [id number] / documented as of this encounter Visit Diagnoses Diagnosis Diastolic heart failure, unspecified HF chronicity (HCC) Aortic stenosis Aortic valve disorders documented in this encounter Advance Directives Latest Code Status on File Code Status Date Activated Date Inactivated Comments Full Code 05/16/2014 4:52 PM 05/19/2014 4:26 PM Thi s order reflects the patients wishes and were consensually agreed upon. Care Teams Utility Helicopter Repairer Relationship Specialty Start Date End Date Nick Edwards MD [address] [place] [address] PCP - General 01/11/04 documented as of this encounter
--- OUTSIDE RECORDS SUMMARY | 2023-08-28 15:16 | External Medical Summary | Summary of Care ---
Author Name Unknown Organization [facility] Address [address] [place] [address] Phone [phone] Care Team Providers Care Induction Machine Operator Name Role Phone Nick Edwards MD Primary Care Provider [phone] Reason for Visit * Reason Onset Date Comments NEW PATIENT Medication Administration 03/16/2023 Flu an d/or Pneumo Inj Encounter Details Date Type Department Care Team Description 03/16/2023 Office Visit Cardiothoracic Surg [facility] [address] [place] [address] Jose Antonio Singh MD [address] [place] [address] Need for prophylactic vaccination and inoculation against influenza* Allergies Active Allergy Reactions Severity Noted Date Comments Felodipine 11/17/2000 plendil Empagliflozin Diarrhea High 06/03/2022 documented as of this encounter (statuses as of 03/16/2023) Medications Medication Sig Dispensed Refills Start Date [...] as of this encounter (statuses as of 03/16/2023) Active Problems Problem Noted Date Other cirrhosis [...] as of this encounter (statuses as of 03/16/2023) Resolved Problems Problem Noted Date Resolved Date [...] as of this encounter (statuses as of 03/16/2023) Immunizations Name Administration Dates Next Due COVID-19 [...] Sign Reading Time Taken Comments Blood Pressure 120/58 03/16/2023 12:27 PM EDT Pulse 62 03/16/2023 12:22 PM EDT Temperature - - Respiratory Rate - - Oxygen Saturation 99% 03/16/2023 12: 22 PM EDT Inhaled Oxygen Concentration - - Weight 100.1 kg (220 lb 9.6 oz) 023 12:22 PM EDT Height 184.2 cm (6' 0.5") 03/16/2023 12 :22 PM EDT Body Mass Index 29.51 03/16/2023 12:22 PM EDT documented in this encounter Functional Status [...] No 05/17/2014 documented as of this encounter Patient Instructions * Patient Instructions* Salty Tello RN - 03/16/2023 12:30 PM EDT ~~PATIENT INSTRUCTIONS FOR FLU SHOT~~ Possible side effects of influenza vaccine, (flu shot), are usually mild and include: 1. Soreness or redness at injection site 2. Low grade fever 3. Body aches You may use Tylenol/Acetaminophen as needed for these symptoms. LET YOUR DOCTOR KNOW IMMEDIATELY IF YOU HAVE DIFFICULTY BREATHING OR SWALLOWING, EXPERIENCE ITCHINGOF FEET OR HANDS, HAVE SWELLING OF EYES, FACE OR INSIDE OF NOSE. documented in this encounter Progress Notes * Salty Tello RN - 03/16/2023 12:30 PM EDT PRE - ADMINISTRATION DOCUMENTATION Are you experiencing any cold symptoms or fever? No Have you had Guillain-Granger Syndrome (an illness that causes paralysis) within the last 6 weeks? No Have you had the flu shot in the past? YES Have you ever had a reaction to the flu shot? No Salty Tello RN, 03/16/2023 12:30 PM Immunization Administration Documentation Time Out Procedure Performed: Yes Patient Identified (Ask Name/Date of ): Yes Does the patient have a fever greater than 101 degrees today? No Patient allergic to latex? No C Stock: No Immunization(s) verified: Yes, Immunization Name: Flu, VIS Sheet(s) given: Yes Verified Side and Site: Yes Verified Shot(s) with Parent(s)/Patient: Yes * Amari Mccormick PA-C - 03/16/2023 12:30 PM EDT HISTORY AND PHYSICAL EXAMINATION - [facility] Name: Gregorio Davidson Date: 03/16/2023 Time: 1230 PM REFERRING PHYSICIAN: Nick Edwards MD PCP: Nick Edwards MD CIVIL RIGHTS INVESTIGATOR: Erik Calero Preference for return visit: [facility] [place] HPI: Gregorio Davidson is a 82 year old male who presents with known bioprosthetic leaflet restriction ([address] [employer] Trifecta 2013) with mod to severe ,Mod AI,Mod MR,Mod TR and mod PHTN.He has had a recent admission for acute on chronic diastolic heart failure in November as well as a hx of Afib (no AC due to bleeding ulcer). He is fairly active,occasional naps but denies much in the way of symptoms. His cath was unremarkable. He has TAVR CT pending Patient has history of chest pain/angina: No Patient has history of SOB/JACKMAN: recent admission of acute on chronic diastolic heart failure Gets swelling of LE,s top the knees,down by morning Off and on SOB Can't walk a flight of stairs Patient has syncope/presyncope: dizziness when getting out of bed Presentation associated with endocarditis/bacteremia: No Patient has PMH of: , chronic diastolic heart failure,SANDI on CPAP,DM2,HTN,DLD,CKD 3B, Steatohepatitis/DE LA CRUZ cirrhosis,Gout,DIverticulosis,VIt D deficiency,atrial fibrillation not on AC [place] Heart Failure Classification: Class II (Mild) Current Outpatient Medications Medication Sig Dispense Refill ASPIRIN TABS 81 MG OR Take 1 Tablet by mouth daily. 34 5 VITAMIN D3 1000 UNITS PO TABS Take 1 Tablet by mouth daily. VITAMIN B-12 500 MCG PO TABS Take 1 Tablet by mouth daily. 1 Tab 0 [facility] VITAMIN B-1 100 MG PO TABS Take 1 Tablet by mouth daily. 1 Tab 0 OneTouch Ultra Blue In Vitro Strip (Glucose [...] A DAY DX E11.9 200 Each 3 FOLIC ACID 0.8 MG PO CAPS Take 1 Capsule by mouth daily. No current facility-administered medications for this visit. ALLERGIES: Jardiance [empagliflozin] and Felodipine PAST MEDICAL HISTORY: Past Medical History: Diagnosis [...] 10 yrs EGD, FLEXIBLE, DIAGNOSTIC N/A 12/16/2022 [facility], EGD , non-bleeding gastric ulcer (Ld Class III) / biopsies shows mild to moderate inflammation / MISCELLANEOUS ORDER ([facility] ONLY) 09/04/2003 [facility]/ bilateral quad rupture repair and repeat x 1 OTHER 05/06/2007 [place]/ laser vaporizationof prostate REPAIR INITIAL INCISIONAL OR VENTRAL HERNIA; REDUCIBLE Left REPLACEMENT AORTIC VALVE, BYPASS WITH PROSTHETIC VALVE 05/16/2014 REPLACEMENT AORTIC VALVE performed by Jacob Crane MD at OR [facility] [place] Hx of vein harvest or stripping?: no SOCIAL HISTORY: Drug Use: never Social History Tobacco Use Smoking status: Never Smokeless tobacco: Never Vaping Use Vaping Use: Never used Substance Use Topics Alcohol use: Yes Comment: a few drinks/month Drug use: No Family History Problem Relation Age of Onset Musculo-skeletal Disorder Mother brittle bones Lung Disorder Father asthma Heart Disorder Brother CABG 2013 Other (CKD, ESRD) None Family History of premature CAD: yes REVIEW OF SYSTEMS: Constitutional: denies fever, denies shaking chills Eyes: reading glasses Ear, nose and throat: denies decreased hearing, denies trouble swallowing, epistaxis when on blood thinners Dental: q 6 months visits ,uses antibiotic prophylaxis Cardiac: s/p AVR, htn,diastolic heart failure,afib no AC Vascular: no claudication Respiratory: SANDI on CPAP Gastrointestinal: 12/17/2022 with symptomatic anemia. Diagnosed with a GI bleed secondary to a bleeding ulcer while taking Eliquis and Aspirin,hx of DE LA CRUZ Genitourinary: denies nocturia Musculoskeletal: minor arthritis issues,Le quadriceps repairs Psychiatric: denies depression, denies anxiety Skin: denies rash, denies non-healing ulcers Neurologic: denies syncope, denies weakness Endocrine: DM2 Aic 6.2 Hematologic / Lymphatic: has bruising with anticoagulation Immunologic: denies trouble fighting infections CARDIOTHORACIC COMPLETE PHYSICAL EXAM: Most Recent Vital Signs: BP 120/58 (BP Site: Right Arm, BP Position: Sitting, BP Cuff Size: Large) | Pulse 62 | Ht 1.842 m (6' 0.5") | Wt 100.1 kg (220 lb 9.6 oz) | SpO2 99% | BMI 29.51 kg/m | BSA 2.26 m PHYSICAL EXAM: General: no acute distress and stated age Head: normocephalic, no masses, lesions, tenderness or abnormalities Eyes: conjunctiva are pink and non-injected, sclera clear, PERRLA, EOMI Nose: normal Teeth: teeth present without obvious periodontal disease Neck: supple, no adenopathy,transmitted cardiac murmer, thyroid normal size, non-tender, without nodularity, normal jugular venous pulse, no hepatojugular reflux Chest: normal shape and normal respiratory effort Lungs: clear to auscultation and percussion Cardiac Exam: regular rate & rhythm A systolic murmur is present - prolonged systolic ejection, grade 3/6, upper right sternal border, radiation to the neck Pulses: The following pulses are normal: carotids, femorals, and abdominal aorta Extremities: no clubbing and no cyanosis,modest 2+ LE edema to calf's bilaterally Neuro: slight right facial droop STUDIES: Cardiac Cath Data: 03/13/2023 Insignificant CAD Echocardiogram: 02/25/2023 Interpretation Summary The examination is adequate to [...] small posterior loculated pericardial effusion is present. Aov2 max 304, Ao PG max 37, NOAH 1.1 cm2 Cath 03/13/2023-hemodynamically insignificant disease TAVR CT -Pending Society of Thoracic Surgeons' Risk Score: STS site Procedure Type: Isolated AVR Perioperative Outcome Estimate % Operative Mortality 22.3% Morbidity & Mortality 43.4% Stroke 7.9% Renal Failure 28.1% Reoperation 9.86% Prolonged Ventilation 29.2% Deep Sternal Wound Infection 0.184% Long Hospital Stay (>14 days) 37% Short Hospital Stay (<6 days) 6.23% IMPRESSION: 82 y/o male with bioprosthetic AV sclerosis and stenosis with AI, MR,TR,as well as chronic diastolic heart failure,SANDI on CPAP,DM2,HTN,DLD,CKD 3B, Steatohepatitis/DE LA CRUZ cirrhosis,Gout,DIverticulosis,VIt D deficiency,atrial fibrillation not on AC Very high risk for AVR ,pending TAVR CT PLAN: Per Dr Francisco Mccormick PA-C CARDIOTHORACIC SURG [facility] [phone] Patient seen and studies reviewed. Gregorio Davidson is an 82-year-old male who underwent replacement of his aortic valve with a 23 mm trifecta valve in 2013. He also has a history of DE LA CRUZ cirrhosis, chronic atrial fibrillation, hypertension, diabetes, sleep apnea and dyslipidemia who has been experiencing increasing shortness of breath and dyspnea on exertion. Echocardiogram reveals degeneration of his prosthetic aortic valve. He now has at least moderate regurgitation and severe stenosis. Left ventricular systolic function is preserved. Coronary angiogram was negative for obstructive coronary disease. We have been asked to see him in consideration for aortic valve replacement therapy. Gregorio has symptomatic bioprosthetic valve stenosis and regurgitation. Due to his multiple comorbidities he would be at extremely high risk for reoperation to replace his aortic valve. Calculated STShis greater than 20%. He may be a good candidate for transcatheter valve therapy. He is to undergo a CT scan later today. We will review all his studies with the structural heart team and plan TAVR should all agree. Jose Antonio Singh MD Cardiac Surgery [facility] [place] documented in this encounter Plan of Treatment Upcoming Encounters Date Type Specialty Care Team Description 03/16/2023 Hospital Encounter Radiology Arrive d 05/05/2023 Office Visit Nephrology Regina Alonso MD [address] [place] [address] 05/21/2023 Office Visit Family Medicine Nick Edwards MD [address] [place] [address] 06/23/2023 Office Visit Gastroenterology Rebekah Anguiano MD [address] [place] [phone] 07/14/2023 Office Visit Sleep Disorders Sujey Vega, [address] [place] [address] Health Maintenance Due Date Last Done Comments Depression Screening 03/29/2021 03/29/2020 COVID-19 Vaccine Completed 05/21/2022, , 09/14/2020, Additional history exists Zoster Vaccines Completed 08/25/2022, 06/02/2022, 0 11/17/2012 Influenza Vaccine (FLU shot) Completed 05/2023, 04/10/2022, 04/15/2021, Additional history exists documented as of this encounter Medical Devices Implanted Type Area Supervisor Wet End Device Identifier Shelf Expiration Date Model / Serial / Lot Valve Heart Trifec Aortic 23mm - [id number] Implanted:Qty: 1 on 05/16/2014 at OR [facility] [place] N/A: Aorta [employer] JEWEL : CARDIOVASCULAR 07/25/2015 TF-23A / [id number] / documented as of this encounter Visit Diagnoses Diagnosis Aortic valve stenosis Aortic valve disorders Need for prophylactic vaccination and inoculation against influenza- Primary documented in this encounter Advance Directives Latest Code Status on File Code Status Date Activated Date Inactivated Comments Full Code 05/16/2014 4:52 PM 05/19/2014 4:26 PM Thi s order reflects the patients wishes and were consensually agreed upon. Care Teams Induction Machine Operator Relationship Specialty Start Date End Date Nick Edwards MD [address] [place], [place] [phone] PCP - General 01/11/04 documented as of this encounter
--- OUTSIDE RECORDS SUMMARY | 2023-08-28 15:16 | External Medical Summary | Summary of Care ---
Author Name Unknown Organization [facility] Address [address] [place] [address] Phone [phone] Care Team Providers Care Towel Rolling Machine Operator Name Role Phone Nick Edwards MD Primary Care Provider [phone] Reason for Referral * Precert (Within 10 days (routine)) - Authorized Specialty Diagnoses / Procedures Referred By Contac t Referred To Contact Radiology Diagnoses Aortic valve stenosis Procedures CTA TAVR GATED STUDY Christopher Moreno MD [address] [place] [address] Referral ID Status Reason Start Date Expiration Date V isits Requested Visits Authorized [id number] Authorized 03/08/2023 09/09/2023 999 999 Reason for Visit * Precert (Within 10 days (routine)) - Authorized Specialty Diagnoses / Procedures Referred By Contac t Referred To Contact Radiology Diagnoses Aortic valve stenosis Procedures CTA TAVR GATED STUDY Christopher Moreno MD [address] [place] [address] Referral ID Status Reason Start Date Expiration Date V isits Requested Visits Authorized [id number] Authorized 03/08/2023 09/09/2023 999 999 Encounter Details Date Type Department Care Team Description 03/16/2023 Hospital Encounter Radiology, [place] [address] [place] [facility] [place] [address] Arrived Allergies Active Allergy Reactions Severity Noted Date Comments Felodipine 11/17/2000 plendil Empagliflozin Diarrhea High 06/03/2022 documented as of this encounter (statuses as of 03/17/2023) Medications Medication Sig Dispensed Refills Start Date [...] 01/05/2023 Active Furosemide 40 MG Oral Tablet (Lasix)Indication s:Heart failure (HCC),Stage 3 chronic kidney disease, unspecified whether stage 3a or 3b CKD (HCC) TAKE 1 TABLET BY MOUTH EVERY DAY IN THE MORNING 90 Tablet 3 01/26/2023 Active Carvedilol 3.125 MG Oral Tablet (Coreg)Indication [...] in the evening. 60 Tablet 1 12/19/2022 3 Discontinue d(Refill) documented as of this encounter (statuses as of 03/17/2023) Active Problems Problem Noted Date Other cirrhosis [...] as of this encounter (statuses as of 03/17/2023) Resolved Problems Problem Noted Date Resolved Date [...] as of this encounter (statuses as of 03/17/2023) Immunizations Name Administration Dates Next Due COVID-19 [...] Visit Nephrology Regina Alonso MD [address] [place] [address] 05/21/2023 Office Visit Family Medicine Nick Edwards MD [address] [place] [address] 06/23/2023 Office Visit Gastroenterology Rebekah Anguiano MD [address] [place] [phone] 07/14/2023 Office Visit Sleep Disorders Sujey Vega, [address] [place] [address] Pending Results Name Type Priority Associated Diagnoses Date /Time CTA TAVR GATED STUDY Medical Imaging Routine Aortic valve stenosis 03/16/2023 3:19 PM EDT Scheduled Orders Name Type Priority Associated Diagnoses Orde r Schedule CTA TAVR GATED STUDY Medical Imaging Routine Aortic valve stenosis 1 Occurrences starting 03/16/2023 until 03/16/2023 Health Maintenance Due Date Last Done Comments Depression Screening 03/29/2021 03/29/2020 COVID-19 Vaccine Completed 05/21/2022, , 09/14/2020, Additional history exists Zoster Vaccines Completed 08/25/2022, 06/02/2022, 0 11/17/2012 Influenza Vaccine (FLU shot) Completed 05/2023, 04/10/2022, 04/15/2021, Additional history exists documented as of this encounter Medical Devices Implanted Type Area Gasateria Attendant Device Identifier Shelf Expiration Date Model / Serial / Lot Valve Heart Trifec Aortic 23mm - [id number] Implanted:Qty: 1 on 05/16/2014 at [facility] N/A: Aorta [facility] JUAN : CARDIOVASCULAR 07/25/2015 TF-23A / [id number] / documented as of this encounter Visit Diagnoses Diagnosis Aortic valve stenosis Aortic valve disorders documented in this encounter Administered Medications Inactive Administered Medications - up to 3 most recent administrations Medication Order MAR Action Action Date Dose Rate Site Ioversol (Optiray 350) 74 % inj 100 mL 100 mL, Intravenous, ONCE, On 03/16/23 at 1522, For 1 dose, Radiology Medication Routing (Non-IR) Given 03/16/2023 3:22 PM EDT 50 mL documented in this encounter Advance Directives Latest Code Status on File Code Status Date Activated Date Inactivated Comments Full Code 05/16/2014 4:52 PM 05/19/2014 4:26 PM Thi s order reflects the patients wishes and were consensually agreed upon. Care Teams Towel Rolling Machine Operator Relationship Specialty Start Date End Date Nick Edwards MD [address] [place] [address] PCP - General 01/11/04 documented as of this encounter
--- OUTSIDE RECORDS SUMMARY | 2023-08-28 15:16 | External Medical Summary | Summary of Care ---
Author Name Unknown Organization [facility] Address [address] [place] [address] Phone [phone] Care Team Providers Care Waitress Name Role Phone Nick Edwards MD Primary Care Provider [phone] Reason for Visit * Reason Onset Date Comments Films 04/01/2023 Encounter Details Date Type Department Care Team Description 04/01/2023 Telephone Radiology Film File [address] [place] [address] Christopher Moreno MD [address] [place] [address] Films Allergies Active Allergy Reactions Severity Noted Date Comments Felodipine 11/17/2000 plendil Empagliflozin Diarrhea High 06/03/2022 documented as of this encounter (statuses as of 04/01/2023) Medications Medication Sig Dispensed Refills Start Date [...] as of this encounter (statuses as of 04/01/2023) Active Problems Problem Noted Date Other cirrhosis [...] as of this encounter (statuses as of 04/01/2023) Resolved Problems Problem Noted Date Resolved Date [...] as of this encounter (statuses as of 04/01/2023) Immunizations Name Administration Dates Next Due COVID-19 [...] Miscellaneous Notes * Telephone Encounter - SANDI Vee - 04/01/2023 4:35 PM EDT Received request from Polly Muse for 03/16/23 CT images be put on disc for patients upcoming appointment. [place] Authorization on file to release. CD created and handed to Polly. documented in this encounter Plan of Treatment Upcoming Encounters Date Type Specialty Care Team Description 04/06/2023 Office Visit [facility] [address] [facility] [address] 05/05/2023 Office Visit Nephrology Regina Alonso MD [address] [place] [address] 05/21/2023 Office Visit Family Medicine [facility] [address] [facility] [address] 06/23/2023 Office Visit Gastroenterology Rebekah Anguiano MD [address] [facility] [place] [address] 07/14/2023 Office Visit Sleep Disorders Sujey Vega DO [address] [place] [address] Health Maintenance Due Date Last Done Comments Depression Screening 03/29/2021 03/29/2020 COVID-19 Vaccine Completed 05/21/2022, , 09/14/2020, Additional history exists Zoster Vaccines Completed 08/25/2022, 06/02/2022, 0 11/17/2012 Influenza Vaccine (FLU shot) Completed 05/2023, 04/10/2022, 04/15/2021, Additional history exists documented as of this encounter Medical Devices Implanted Type Area Proposal Engineer Device Identifier Shelf Expiration Date Model / Serial / Lot Valve Heart Trifec Aortic 23mm - [id number] Implanted:Qty: 1 on 05/16/2014 at OR [facility] [place] N/A: Aorta [employer] : CARDIOVASCULAR 07/25/2015 TF-23A / [id number] / documented as of this encounter Advance Directives Latest Code Status on File Code Status Date Activated Date Inactivated Comments Full Code 05/16/2014 4:52 PM 05/19/2014 4:26 PM Thi s order reflects the patients wishes and were consensually agreed upon. Care Teams Waitress Relationship Specialty Start Date End Date Nick Edwards [facility] [address] [facility] [address] PCP - General 01/11/04 documented as of this encounter
--- OUTSIDE RECORDS SUMMARY | 2023-08-28 15:16 | External Medical Summary | Summary of Care ---
Author Name Unknown Organization [facility] Address [address] [place] [address] Phone [phone] Care Team Providers Care Skein Inspector Name Role Phone Nick Edwards MD Primary Care Provider [phone] Reason for Referral * Precert (Within 10 days (routine)) - Pending Review Specialty Diagnoses / Procedures Referred By Contac t Referred To Contact Radiology Diagnoses Aortic valve stenosis Procedures CTA TAVR GATED STUDY Christopher Moreno MD [address] [place] [address] Referral ID Status Reason Start Date Expiration Date V isits Requested Visits Authorized [id number] Pending Review 03/17/2023 999 999 Encounter Details Date Type Department Care Team Description 03/03/2023 Orders Only Cardiology [facility] [address] [place], [place] [id number] Polly Muse, RN Aortic valve stenosis* Allergies Active Allergy Reactions Severity Noted Date Comments Felodipine 11/17/2000 plendil Empagliflozin Diarrhea High 06/03/2022 documented as of this encounter (statuses as of 03/03/2023) Medications Medication Sig Dispensed Refills Start Date [...] as of this encounter (statuses as of 03/03/2023) Active Problems Problem Noted Date Other cirrhosis [...] as of this encounter (statuses as of 03/03/2023) Resolved Problems Problem Noted Date Resolved Date [...] as of this encounter (statuses as of 03/03/2023) Immunizations Name Administration Dates Next Due COVID-19 mRNA, LNP-s, No Pre serve, 2-Dose Series (Cuffed and Wanted) 04/03/2021,09/14/2020,08/17/2020 Influenza, Whole Virus 05/03/2018,07/24/2006 Pneumococcal Conjugate [...] Specialty Care Team Description 05/05/2023 Office Visit NephRegina Nascimento MD [address] [facility] [place] [address] 05/21/2023 Office Visit Family Medicine Nick [facility] [address] [facility] [address] 06/23/2023 Office Visit Gastroenterology Rebekah Anguiano MD [address] [place] [address] 07/14/2023 Office Visit Sleep Disorders Sujey Vega, [address] [place] [address] Scheduled Orders Name Type Priority Associated Diagnoses Order Schedule CTA TAVR GATED STUDY Medical Imaging Routine Aortic valve stenosis Expected: 03/17/2023, Expires: 04/03/2023 CREATININE ISTAT, POINT OF CARE Point of Care Testing - Unsolicited Results Routine Aortic valve stenosis Ordered: 03/03/2023 Health Maintenance Due Date Last Done Comments Depression Screening, Annual for Pts 12 and Over 03/29/2021 03/29/2020 Influenza Vaccine (FLU shot) (#1) 2023 04/10/2022, 04/15/2021, 03/29/2020, Additional history exists COVID-19 Vaccine Completed 05/21/2022, , 09/14/2020, Additional history exists Zoster Vaccines Completed 08/25/2022, 05/07, 11/17/2012 documented as of this encounter Medical Devices Implanted Type Area Vat Tender Device Identifier Shelf Expiration Date Model / Serial / Lot Valve Heart Trifec Aortic 23mm - [id number] Implanted:Qty: 1 on 05/16/2014 at OR [facility] [place] N/A: Aorta [facility] : CARDIOVASCULAR 07/25/2015 TF-23A / [id number] / documented as of this encounter Visit Diagnoses Diagnosis Aortic valve stenosis- Primary Aortic valve disorders documented in this encounter Advance Directives Latest Code Status on File Code Status Date Activated Date Inactivated Comments Full Code 05/16/2014 4:52 PM 05/19/2014 4:26 PM Thi s order reflects the patients wishes and were consensually agreed upon. Care Teams Skein Inspector Relationship Specialty Start Date End Date Nick Edwards MD [address] [place] [address] PCP - General 01/11/04 documented as of this encounter
--- OUTSIDE RECORDS SUMMARY | 2023-08-28 15:16 | External Medical Summary | Summary of Care ---
Author Name Unknown Organization [facility] Address [address] [place] [address] Phone [phone] Care Team Providers Care Studio Musician Name Role Phone Nick Edwards MD Primary Care Provider [phone] Reason for Referral * Opinion/Recommendation - Change # of Visits to 1 (Within 10 days (routine)) - Pending Review Specialty Diagnoses / Procedures Referred By Contact Referred To Contact Cardiovascular Medicine / Cardiology Diagnoses S/P Nick Quiñones MD [address] [place] [address] Christopher Moreno MD [address] [place] [address] Referral ID Status Reason Start Date Expiration Date Visits Requested Visits Authorized [id number] Pending Review Specialty Services Required 04/02/2023 999 999 Question Answer Referral Priority Within 10 days (routine) To which of the following clinics are you referring your patient? General Cardiology Clinic Reason for Visit * Reason Onset Date Comments Referral 04/02/2023 Encounter Details Date Type Department Care Team Description 04/02/2023 Telephone [facility] [address] [place] [address] Nick Edwards MD [address] [place] [address] Referral Allergies Active Allergy Reactions Severity Noted Date Comments Felodipine 11/17/2000 plendil Empagliflozin Diarrhea High 06/03/2022 documented as of this encounter (statuses as of 04/02/2023) Medications Medication Sig Dispensed Refills Start Date [...] as of this encounter (statuses as of 04/02/2023) Active Problems Problem Noted Date Other cirrhosis [...] as of this encounter (statuses as of 04/02/2023) Resolved Problems Problem Noted Date Resolved Date [...] as of this encounter (statuses as of 04/02/2023) Immunizations Name Administration Dates Next Due COVID-19 [...] encounter Miscellaneous Notes * Telephone Encounter - NAOMI Shelton - 04/02/2023 2:02 PM EDT Please advise as below. Thank you. * Telephone Encounter - SANDI Martin - 04/02/2023 1:41 PM EDT Has the patient been seen for this problem? (Y/N)?: If No, an appt needs to be scheduled before a referral will be placed (exception: proceed with referral request if referral request is for a yearly routine appointment with speciality) Patient Name: Gregorio [place] Patient Primary care provider: Nick Edwards MD Does this need to be an insurance referral (Y/N)?: Y If Yes, does the insurance referral need to be placed into the [employer] system? Name of preferred specialist: Dr Moreno Type of specialist: Fitness Center Attendant Location of specialist: [place] [facility] Phone #: [phone] Specialist's Fax #: [phone] Reason for visit: Aortic valve stenosis Date of visit: 04/06/23 documented in this encounter Plan of Treatment Upcoming Encounters Date Type Specialty Care Team Description 04/06/2023 Office Visit Cardiology Christopher Moreno MD [address] [facility] [place] [address] 05/05/2023 Office Visit Nephrology Regina Alonso MD [address] [place] [address] 05/21/2023 Office Visit Family Medicine Nick Edwards MD [address] [place] [address] 06/23/2023 Office Visit Gastroenterology Rebekah Anguiano MD [address] [place] [address] 07/14/2023 Office Visit Sleep Disorders Sujey Vega, [address] [place] [address] Scheduled Referrals Name Type Priority Associated Diagnoses Orde r Schedule CARDIOLOGY REFERRAL OP Referral Within 10 days (routine) S/P AVR Ordered: 04/02/2023 Health Maintenance Due Date Last Done Comments Depression Screening 03/29/2021 03/29/2020 COVID-19 Vaccine Completed 05/21/2022, , 09/14/2020, Additional history exists Zoster Vaccines Completed 08/25/2022, 06/02/2022, 0 11/17/2012 Influenza Vaccine (FLU shot) Completed 05/2023, 04/10/2022, 04/15/2021, Additional history exists documented as of this encounter Medical Devices Implanted Type Area Recruiting Coordinator Device Identifier Shelf Expiration Date Model / Serial / Lot Valve Heart Trifec Aortic 23mm - [id number] Implanted:Qty: 1 on 05/16/2014 at [place] [facility] [place] N/A: Aorta [facility] : CARDIOVASCULAR 07/25/2015 TF-23A / [id number] / documented as of this encounter Visit Diagnoses Diagnosis S/P AVR- Primary Heart valve replaced by other means documented in this encounter Advance Directives Latest Code Status on File Code Status Date Activated Date Inactivated Comments Full Code 05/16/2014 4:52 PM 05/19/2014 4:26 PM Thi s order reflects the patients wishes and were consensually agreed upon. Care Teams Studio Musician Relationship Specialty Start Date End Date Nick Edwards MD [address] [place] [address] PCP - General 01/11/04 documented as of this encounter
--- OUTSIDE RECORDS SUMMARY | 2023-08-28 15:16 | External Medical Summary | Summary of Care ---
Author Name Unknown Organization [facility] Address [address] [facility] [place] [address] Phone [phone] Care Team Providers Care Oracle Financial Application Developer Name Role Phone Nick Edwards MD Primary Care Provider [phone] Reason for Visit * Reason Onset Date Comments Hospital Follow-Up 11/07/2022 Encounter Details Date Type Department Care Team Description 11/07/2022 Telephone Cardiology, [facility] [address] [place] [address] Lio Richard, [address] [place] [address] Hospital Follow-Up Allergies Active Allergy Reactions Severity Noted Date Comments Felodipine 11/17/2000 plendil Empagliflozin Diarrhea High 06/03/2022 documented as of this encounter (statuses as of 03/22/2023) Medications Medication Sig Dispensed Refills Start Date End Date Status ASPIRIN TABS 81 MG OR Take 1 Tablet by mouth daily. 34 5 1 Active VITAMIN D3 1000 UNITS PO TABS Take 1 Tablet by mouth daily. 0 4 Active VITAMIN B-12 500 MCG PO TABS Take 1 Tablet by mouth daily. 1 Tab 0 5 Active [facility] VITAMIN B-1 100 MG PO TABS Take 1 Tablet by mouth daily. 1 Tab 0 5 Active FOLIC ACID 0.8 MG PO CAPS Take 1 Capsule by mouth daily. 0 Active OneTouch Ultra Blue In Vitro Strip (Glucose Blood) 2X'S A DAY DX E11.9 200 Strip 3 2 Active Amoxicillin 500 MG Oral Capsule (Amoxil)Indicati ons:S/P AVR TAKE 4 CAPSULES BY MOUTH 1/2 HOUR BEFORE DENTAL APPOINTMENT 4 Capsule 2 2 Active TRUEplus Lancets 33G 2X'S A DAY DX E11.9 200 Each 3 2 02/28/20 23 Discontinued Allopurinol 100 MG Oral Tablet (Zyloprim)Indica tions:Gouty arthropathy TAKE ONE TABLET BY MOUTH DAILY OR DIRECTED 90 Tablet 1 2 11/20/19 23 Discontinued(Ref ill) Atorvastatin Calcium 40 MG Oral Tablet (Lipitor)Indicat ions:Dyslipidemi a, goal LDL below 100 TAKE ONE TABLET BY MOUTH DAILY. 90 Tablet 1 2 11/20/19 23 Discontinued(Ref ill) Metoprolol Succinate ER 25 MG Oral Tablet Extended Release 24 Hour (Toprol XL) Take 0.5 Tablets (12.5 mg) by mouth in the morning. 16 Tablet 5 2 02/26/20 23 Discontinued(Med ication/Dose Changed) Furosemide 20 MG Oral Tablet (Lasix)Indicatio ns:Stage 3b chronic kidney disease (HCC),Diastolic heart failure, unspecified HF chronicity (HCC) Take 1 Tablet by mouth in the morning. Or as directed. 38 Tablet 11 3 01/06/20 23 Discontinued(Pat ient preference/disco ntinuation) documented as of this encounter (statuses as of 03/22/2023) Active Problems Problem Noted Date Other cirrhosis [...] as of this encounter (statuses as of 03/22/2023) Resolved Problems Problem Noted Date Resolved Date [...] as of this encounter (statuses as of 03/22/2023) Immunizations Name Administration Dates Next Due COVID-19 mRNA, LNP-s, No Pre serve, 2-Dose Series (Notifixious) 04/03/2021,09/14/2020,08/17/2020 Influenza, Whole Virus 05/03/2018,07/24/2006 Pneumococcal Conjugate [...] Miscellaneous Notes * Telephone Encounter - SANDI Flores - 11/24/2022 11:21 AM EDT Pt left message on cardio backline. Please reach out to pt again. Thank you. * Telephone Encounter - Lio Richard DO - 11/07/2022 3:20 PM EDT Pt currently admitted to [facility]. Please help see if we can arrange a valve clinic follow up appointment sooner than February. Lio Ricahrd DO documented in this encounter Plan of Treatment Upcoming Encounters Date Type Specialty Care Team Description 05/05/2023 Office Visit Nephrology Regina Alonso MD [address] [place] [address], [facility] 05/21/2023 Office Visit Family Medicine Nick Edwards MD [address] [place] [address] 06/23/2023 Office Visit Gastroenterology Rebekah Anguiano MD [address] [place] [address] 07/14/2023 Office Visit Sleep Disorders Sujey Vega DO [address] [place] [address] Health Maintenance Due Date Last Done Comments Depression Screening 03/29/2021 03/29/2020 COVID-19 Vaccine Completed 05/21/2022, , 09/14/2020, Additional history exists Zoster Vaccines Completed 08/25/2022, 06/02/2022, 0 11/17/2012 Influenza Vaccine (FLU shot) Completed 05/2023, 04/10/2022, 04/15/2021, Additional history exists documented as of this encounter Medical Devices Implanted Type Area Fruit Or Nut Farmer Device Identifier Shelf Expiration Date Model / Serial / Lot Valve Heart Trifec Aortic 23mm - [id number] Implanted:Qty: 1 on 05/16/2014 at OR [place] N/A: Aorta [facility] : CARDIOVASCULAR 07/25/2015 TF-23A / [id number] / documented as of this encounter Advance Directives Latest Code Status on File Code Status Date Activated Date Inactivated Comments Full Code 05/16/2014 4:52 PM 05/19/2014 4:26 PM Thi s order reflects the patients wishes and were consensually agreed upon. Care Teams Oracle Financial Application Developer Relationship Specialty Start Date End Date Nick Edwards MD [address] [place] [address] PCP - General 01/11/04 documented as of this encounter
--- OUTSIDE RECORDS SUMMARY | 2023-08-28 15:16 | External Medical Summary ---
Author Name Unknown Address Unknown Organization K01:[facility] [place] [facility] [address] [facility] [address] [place] [address] Laboratory Report Ordering Provider Test Date Status MAMADOU ANN 03/13/2023 10:24:02 Final Observation Date Value Abnormality Reference (Units ) Status WBC, Total 03/13/2023 10:24:02 5.76 4.00-10.80 (K/uL) Final RBC 03/13/2023 10:24:02 3.41 4.50-5.25 (M/uL) Final Hemoglobin 03/13/2023 10:24:02 10.4 Below low normal 14.0-16.8 (g/dL) Final HCT 03/13/2023 10:24:02 33.2 Below low normal 40.0-48.4 (%) Final MCV 03/13/2023 10:24:02 97.4 82.0-99.5 (fL) Final MCH 03/13/2023 10:24:02 30.5 27.0-34.0 (pg) Final MCHC 03/13/2023 10:24:02 31.3 32.0-36.0 (g/dL) Final RDW 03/13/2023 10:24:02 15.9 11.5-15.5 (%) Final Platelets 03/13/2023 10:24:02 94 Below low normal 140-400 (K/uL) Final MPV 03/13/2023 10:24:02 10.3 6.6-11.1 (fL) Final Nucleated erythrocytes/100 leukocytes [Ratio] in Blood by Automated count 03/13/2023 10:24:02 0 <=0 (/100 WBCs) Final Performing Location [facility] [place] [address] [place] [address]
--- OUTSIDE RECORDS SUMMARY | 2023-08-28 15:16 | External Medical Summary | Summary of Care ---
Author Name Unknown Organization [facility] Address [address] [facility] [place] [address] Phone [phone] Care Team Providers Care Construction Equipment Mechanic Helper Name Role Phone Raheem Edwards MD Primary Care Provider [phone] Reason for Visit * Reason Onset Date Comments Medication Refill 03/16/2023 Encounter Details Date Type Department Care Team Description 03/16/2023 Refill [facility] [address] [place] [address] Raheem Edwards MD [address] [place] [address] Gastrointestinal hemorrhage associated with gastric ulcer Allergies Active Allergy Reactions Severity Noted Date [...] the evening. 60 Tablet 5 03/16/2023 Active Pantoprazole Sodium 40 MG Oral Tablet [...] mRNA, LNP-s, No Pre serve, 2-Dose Series ([employer]) 04/03/2021,09/14/2020,08/17/2020 Influenza, Whole Virus 05/03/2018,07/24/2006 Pneumococcal Conjugate [...] Telephone Encounter - Raheem Edwards MD - 03/16/2023 4:58 PM EDTSigned Prescriptions: Disp Refills Pantoprazole Sodium 40 MG Oral Tablet Gloria*60 Tab*5 Sig: Take 1 Tablet by mouth in the morning and 1 Tablet in the evening.Authorizing Provider: RAHEEM EDWARDS------ * Telephone Encounter - Sofy Spencer LPN - 03/16/2023 4:41 PM EDTPending Prescriptions: Disp Refills Pantoprazole Sodium 40 MG Oral Tablet Gloria*60 Tab*1 Sig: Take 1 Tablet by mouth in the morning and 1 Tablet in the evening. * Telephone Encounter - Tracey Flannerynncyndie Conway - 03/16/2023 3:58 PM EDT Did you pend patient's preferred pharmacy and medication before forwarding?no Pharmacy: [id number] [address] [facility] Pending Prescriptions: Disp Refills Pantoprazole Sodium 40 MG Oral Tablet Del*60 Tab*1 Sig: Take 1 Tablet by mouth in the morning and 1 Tablet in the evening. Last Visit: 12/19/2022 (in office), Visit date not found (telemedicine) Next Visit: 05/21/2023 If no future appointments scheduled, and last appointment is greater than a year ago, please schedule patient for a follow-up appointment Last date the medication was ordered: 12.19.2022 Is this request for a controlled substance?No Urine Drug Screen:No results found for this or any previous visit. Patient Phone Numbers Labs: Lab Results Component Value Date/Time CREAT 1.8 (H) 03/13/2023 10:24 AM CREAT 1.5 (H) 08/02/2020 02:01 PM POTASSIUM 3.8 03/13/2023 10:24 AM POTASSIUM 4.6 08/02/2020 02:01 PM TSH 1.91 05/03/2014 02:14 PM LDLCALC 53 09/06/2021 10:16 AM LDLCALC 42 03/08/2020 08:38 AM LDLDIRECT NOT APPLICABLE 03/08/2020 08:38 AM LDLDIRECT 108 08/20/2011 02:06 PM ALT 31 11/28/2022 01:27 PM ALT 54 (H) 08/02/2020 02:01 PM HGBA1C 6.2 (H) 11/13/2022 12:11 PM HGBA1C 6.6 (H) 03/08/2020 08:38 AM documented in this encounter Plan of Treatment Upcoming Encounters Date Type Specialty Care Team Description 05/05/2023 Office Visit Nephrology Regina Alonso MD [address] [place] [address] 05/21/2023 Office Visit Family Medicine Raheem Edwards MD [address] [place] [address] 06/23/2023 Office Visit Gastroenterology Rebekah Anguiano MD [address] [place] [address] 07/14/2023 Office Visit Sleep Disorders Sujey Vega, [address] [place] [address] Health Maintenance Due Date Last Done Comments Depression Screening 03/29/2021 03/29/2020 COVID-19 Vaccine Completed 05/21/2022, , 09/14/2020, Additional history exists Zoster Vaccines Completed 08/25/2022, 06/02/2022, 0 11/17/2012 Influenza Vaccine (FLU shot) Completed 05/2023, 04/10/2022, 04/15/2021, Additional history exists documented as of this encounter Medical Devices Implanted Type Area Log Hooker Device Identifier Shelf Expiration Date Model / Serial / Lot Valve Heart Trifec Aortic 23mm - [id number] Implanted:Qty: 1 on 05/16/2014 at OR [facility] [place] N/A: Aorta [facility] JUAN : CARDIOVASCULAR 07/25/2015 -23A / [id number] / documented as of this encounter Visit Diagnoses Diagnosis Gastrointestinal hemorrhage associated with gastric ulcer documented in this encounter Advance Directives Latest Code Status on File Code Status Date Activated Date Inactivated Comments Full Code 05/16/2014 4:52 PM 05/19/2014 4:26 PM Thi s order reflects the patients wishes and were consensually agreed upon. Care Teams Construction Equipment Mechanic Helper Relationship Specialty Start Date End Date Raheem Edwards MD [address] [place] [address] PCP - General 01/11/04 documented as of this encounter
--- OUTSIDE RECORDS SUMMARY | 2023-08-28 15:16 | External Medical Summary ---
Author Name Unknown Address Unknown Organization K01[facility] [place] [facility] [address] [place] [address] Laboratory Report Ordering Provider Test Date Status MAMADOU ANN 03/13/2023 10:24:02 Final Observation Date Value Abnormality Reference (Units ) Status BUN 03/13/2023 10:24:02 37 Above high normal 6-20 (mg/dL) Final Creatinine 03/13/2023 10:24:02 1.8 Above high normal 0.6-1.2 (mg/dL) Final Glomerular filtration rate/1.73 sq M.predicted [Volume Rate/Area] in Serum, Plasma or Blood by Creatinine-based formula (CKD-EPI) 03/13/2023 10:24:02 36 Below low normal >=60 (mL/min) Final eGFR is calculated based on the CKD-EPI 2020 equation SODIUM 03/13/2023 10:24:02 140 135-146 (m mol/L) Final Potassium 03/13/2023 10:24:02 3.8 3.5-5.1 (m mol/L) Final Cl 03/13/2023 10:24:02 101 98-107 (mm ol/L) Final CO2 03/13/2023 10:24:02 29 22-32 (mmo l/L) Final Anion gap 03/13/2023 10:24:02 10 7-15 (mmol /L) Final Glucose 03/13/2023 10:24:02 134 Above high normal 70 -120 (mg/dL) Final Calcium 03/13/2023 10:24:02 8.7 8.4-10.2 ( mg/dL) Final Albumin 03/13/2023 10:24:02 3.5 Below low normal 3.8 -5.0 (g/dL) Final Phosphate 03/13/2023 10:24:02 3.4 2.5-4.8 (m g/dL) Final Performing Location LABORATORY C - [address] [place] [address]
--- NOTE | 2023-08-28 15:31 | Hospitalist Progress Note ---
Date of Service August 28, 2023 Assessment & Plan (1) Transaminitis: (2) Hyperbilirubinemia: (3) Cirrhosis of liver: (4) Abdominal pain: (5) Atrial fibrillation: (6) Diabetes: (7) SANDI on CPAP: Plan This is an 82 yr old M who has a significant PMH of Chronic Atrial fib not on oral anticoagulation due to hx of GIB, T2DM, HTN, HLD, Aortic Valve stenosis s/p TAVR, SANDI on cpap, [place] CRUZ cirrhosis, hx of alcohol abuse, CKD-3 baseline cr 1.8-2 who presents to ED 2/2 abdominal pain x 2-3 days. Direct bilirubinemia Transaminitis Cirrhosis of liver admit to tele ? alcoholic hepatitis vs cholecystitis vs pancreatitis vs decompensated cirrhosis obtain RUQ US consult GI will keep NPO for now IV lasix 40mg x 1 IV ceftriaxone, flagyl gentle IVF x 1 L while NPO MELD 21 repeat LFTS, lipase, PT/INR in a.m. pt follows with hepatology for [place] CRUZ abd CT: 2.7 R hepatic lobe lesion -- will need outpatient follow up 08/28 Abdominal pain resolved Bilirubin, LFTs about the same as yesterday GI consulted Recommend liver MRI to rule out obstruction Recommend Protonix 40 mg p.o. daily Recommend outpatient EGD to follow-up ulcer seen on previous EGD Suspicion for acute cholecystitis low Await liver MRI Continue IV antibiotics for now Hx of alcohol abuse awss protocol folic acid, thiamine No signs of alcohol withdrawal Monitor closely Anemia Thrombocytopenia cts stable chronic Chronic atrial fib s/p TAVR HTN HLD chronic, stable not on OAC 2/2 hx of GIB pt has stenosis of prosthetic aortic valve with unsuccessful attempt at [facility], on DAPT x 1 year from 04/21/23 continue asa, plavix, coreg, hydralazine hold statin given transaminitis daily weights, strict intake/output T2DM last a1c 6.0 04/2023 repeat a1c in a.m.: 5.5 novolog per protocol SANDI Cpap at HS CKD-3 baseline cr 1.8-2 chronic, stable monitor closely, avoid nephrotoxic agents DVT ppx: SCDS for now, on DAPT with hx of gib FULL CODE PCP: Grace Dispo: Pending Lives at home with family Admission and Anticipated Discharge Date Admission Date: August 27, 2023 Subjective Follow-up for bilirubinemia, mid abdominal pain, etc. Resting in bedside chair, comfortable, in good spirits, very pleasant States he feels improved overall Abdominal pain resolved, no nausea or vomiting, fevers or chills Reports he is very hungry no chest pain, dyspnea, palpitations, dizziness No other new symptoms Review of Systems Review of Systems: all noted and negative except for above Physical Exam Physical Exam: General- oriented x 3, not in distress, speaks in sentences with no effort or accessory muscle use Eyes-positive icterus Neck- no JVD Lungs- clear breath sounds bilaterally, no rales/wheezes Heart- normal rate, regular rhythm; no murmurs Abdomen- normal bowel sounds, nondistended, soft, no right upper quadrant tenderness, no tenderness in other quadrants Extremities- no pretibial edema, no calf tenderness Neuro- alert, oriented x 3; no gross focal neurologic deficits Skin- warm & dry; positive jaundice Results & Data Results & Data Vital Signs (Past 12 Hours) Vital Signs Temp Pulse Resp BP Pulse Ox O2 Del Method 08/28/23 11:55 36.6 C 60 18 130/52 L 96 Room Air 08/28/23 07:53 36.5 C 62 20 124/82 96 Room Air all noted and reviewed including below (3) Cirrhosis of liver Ascites presence: unspecified Hepatic cirrhosis type: unspecified hepatic cirrhosis Qualified Code(s): K74.60 - Unspecified cirrhosis of liver (4) Abdominal pain Abdominal location: generalized Qualified Code(s): R10.84 - Generalized abdominal pain
[2023-08-28] MEDS: GADOXETATE DISODIUM IV ONE (20:49)
--- NOTE | 2023-08-28 23:29 | Magnetic Resonance Report ---
MRI OF THE ABDOMEN COMBO; MRCP CLINICAL HISTORY: Cirrhosis. Liver lesion seen by CT. COMPARISON STUDY: Abdominal CT dated 08/27/2023. TECHNIQUE: MRI of the abdomen is performed transverse T1 and T2-weighted sequences in the axial and c oronal planes. Contrast enhanced sequences were acquired following the IV administration of 10 cc of Eovist. Subtraction imaging and diffusion-weighted imaging were utilized. High resolution MRCP image s were obtained. 3-D reformats are created and assessed. The examination is significantly degraded by motion artifact. FINDINGS: Lower chest: There are midline sternotomy wires. There are right larger than left pleural effusions w ith dependent atelectasis. The heart is enlarged and without pericardial effusion. Liver: The liver is cirrhotic in morphology and heterogeneous in signal intensity. There is nodularit y of the hepatic surface contour. No intrahepatic biliary ductal dilatation is seen. The hepatic vein s and portal veins are patent. There is a 3.4 cm T2 hyperintense arterially enhancing lesion in hepat ic segment VIII just below the diaphragm. This is best seen on axial postcontrast image #25 and delay ed Eovist image #24. This shows portal venous phase washout and does not retain Eovist. No additiona l enhancing hepatic lesion is clearly identified. Gallbladder: A fluid/fluid level within the gallbladder may represent stones/sludge. There is no MRI evidence of acute cholecystitis. There is no intra or extrahepatic biliary ductal dilatation. The com mon bile duct measures up to 4 mm diameter. No intraluminal filling defects are seen to suggest dexter docholithiasis. The pancreatic duct is normal in caliber. Spleen: The spleen is enlarged measuring 15.3 cm in length. Pancreas: The pancreas is moderately atrophic. There are numerous (less than 10) simple cystic lesion s scattered the pancreas along the course of the duct which measure up to 11 mm. These are typical fo r a sidebranch IPMNs. Adrenal glands: Unremarkable. Kidneys: The kidneys are atrophic and without hydronephrosis. The kidneys enhance and excrete symmetr ically. Bilateral renal cysts measure up to 7 cm. Abdominal aorta: Normal in course and caliber. Bowel: Visualized portions of the small bowel and colon show no evidence of obstruction. There is div erticulosis of the colon. Peritoneum: There is trace perihepatic and perisplenic ascites. Lymphadenopathy: Prominent lymph nodes in the dionne hepatis are nonspecific and likely reactive. Skeletal structures: Visualized skeletal structures times are normal marrow signal intensity. IMPRESSION: 1. Significantly motion compromised examination. 2. The liver is cirrhotic in morphology and heterogeneous in signal intensity. 3. MRI confirms the presence of a 3.4 cm arterially hypervascular lesion in the right lobe with delay ed washout. The enhancement kinetics are highly suspicious for hepatocellular carcinoma. Correlate wi th serum AFP levels. 4. A fluid/fluid level within the gallbladder likely represents stones/sludge. There is no MRI eviden ce of acute cholecystitis. 5. Right larger than left pleural effusions. 6. Splenomegaly and trace ascites indicate portal hypertension. 7. Additional findings as above. ACT 112: Positive. There are findings on this exam that require communication between the performing entity and the patient following Patient Test Result Information Act ([place] Act 112) guidelines. Electronically signed by: Jarrett White M.D. 08/28/2023 11:28 PM
[2023-08-29 09:37] LABS: HBSAG NON-REACTIVE (NON-REACTIVE); Hepatitis A Antibody IgM NON-REACTIVE (NON-REACTIVE); Hepatitis B Core Antibody IgM NON-REACTIVE (NON-REACTIVE)
[2023-08-29 09:52] LABS: Albumin Level 2.8 gm/dl (3.4-5.0); BUN Creatinine Ratio 21.4 (10-20); Bilirubin,Total 5.9 mg/dl (0.2-1.0); Calcium 8.4 mg/dl (8.6-10.3); Creatinine Clr Calc Pharmacy 31.8 ml/min; Est GFR (African American) 33.3 ml/min; Est GFR (Non-African American) 28.7 ml/min; Magnesium 1.6 mg/dl (1.7-2.4); Potassium 4.3 mmol/L (3.5-5.1); Total Protein 6.2 gm/dl (6.0-8.3)
[2023-08-29 16:08] LABS: Appearance Urine Clear (Clear); Bacteria Urine Automated Negative (Negative); Blood Urine Negative (Negative); Color Urine Orange; Glucose Urine UA Negative (Negative); Ketones Urine Negative (Negative); Leukocyte Esterase Urine 1+ (Negative); Nitrite Urine Positive (Negative); Protein Urine 1+ (Negative); Specific Gravity Urine 1.032 (1.000-1.030); Urobilinogen Urine Negative (Negative)
[2023-08-29 16:19] LABS: Bilirubin Urine 3+ (Negative)
--- NOTE | 2023-08-29 16:47 | Hospitalist Progress Note ---
Date of Service August 29, 2023 Assessment & Plan (1) Transaminitis: (2) Hyperbilirubinemia: (3) Cirrhosis of liver: (4) Abdominal pain: (5) Atrial fibrillation: (6) Diabetes: (7) SANDI on CPAP: Plan This is an 82 yr old M who has a significant PMH of Chronic Atrial fib not on oral anticoagulation due to hx of GIB, T2DM, HTN, HLD, Aortic Valve stenosis s/p TAVR, SANDI on cpap, [place] CRUZ cirrhosis, hx of alcohol abuse, CKD-3 baseline cr 1.8-2 who presents to ED 2/2 abdominal pain x 2-3 days. Direct bilirubinemia Transaminitis Cirrhosis of liver admit to tele ? alcoholic hepatitis vs cholecystitis vs pancreatitis vs decompensated cirrhosis obtain RUQ US consult GI will keep NPO for now IV lasix 40mg x 1 IV ceftriaxone, flagyl gentle IVF x 1 L while NPO MELD 21 repeat LFTS, lipase, PT/INR in a.m. pt follows with hepatology for [place] CR[place] abd CT: 2.7 R hepatic lobe lesion -- will need outpatient follow up 08/28 Abdominal pain resolved Bilirubin, LFTs about the same as yesterday GI consulted Recommend liver MRI to rule out obstruction Recommend Protonix 40 mg p.o. daily Recommend outpatient EGD to follow-up ulcer seen on previous EGD Suspicion for acute cholecystitis low Await liver MRI Continue IV antibiotics for now 08/29 Liver MRI: MRI confirms the presence of a 3.4 cm arterially hypervascular lesion in the right lobe with delayed washout. The enhancement kinetics are highly suspicious for hepatocellular carcinoma. Correlate with serum AFP levels. LFTs seems to be trending down AFP pending Abdominal pain, possible gastric ulcer/gastritis Still having intermittent epigastric pain Change Protonix to IV Continue to monitor closely If not improving, may need an EGD during this admission Hx of alcohol abuse awss protocol folic acid, thiamine No signs of alcohol withdrawal Monitor closely Anemia Thrombocytopenia cts stable chronic Chronic atrial fib s/p TAVR HTN HLD chronic, stable not on OAC 2/2 hx of GIB pt has stenosis of prosthetic aortic valve with unsuccessful attempt at [facility], on DAPT x 1 year from 04/21/23 continue asa, plavix, coreg, hydralazine hold statin given transaminitis daily weights, strict intake/output T2DM last a1c 6.0 04/2023 repeat a1c in a.m.: 5.5 novolog per protocol SANDI Cpap at HS CKD-3 baseline cr 1.8-2 chronic, stable monitor closely, avoid nephrotoxic agents History of CVA, TIA Continue aspirin Plavix DVT ppx: SCDS for now, on DAPT with hx of gib FULL CODE PCP: Grace Dispo: Pending Lives at home with family Admission and Anticipated Discharge Date Admission Date: August 27, 2023 Subjective Follow-up for elevated bilirubin, LFTs, etc. Resting in bedside chair, comfortable, not in distress Still having episodes of epigastric discomfort, 5 out of 10 No nausea, vomiting, hematochezia Did report some black stools today No fevers or chills no chest pain, dyspnea, palpitations, dizziness Seems to be having poor urine output per RN No other new symptom Review of Systems Review of Systems: all noted and negative except for above Physical Exam Physical Exam: General- oriented x 3, not in distress, speaks in sentences with no effort or accessory muscle use Eyes-positive icterus Neck- no JVD Lungs- clear breath sounds bilaterally, no crackles or wheezes Heart- normal rate, regular rhythm; no murmurs Abdomen- normal bowel sounds, nondistended, soft, nontender Extremities-mild lower extremity edema, no calf tenderness Neuro- alert, oriented x 3; no gross focal neurologic deficits Skin- warm & dry; positive jaundice Results & Data Results & Data Vital Signs (Past 12 Hours) Vital Signs Temp Pulse Resp BP Pulse Ox O2 Del Method 08/29/23 14:54 36.4 C L 56 L 18 142/70 H 98 Room Air 08/29/23 11:16 36.8 C 55 L 19 138/72 96 Room Air 08/29/23 07:17 36.4 C L 85 18 132/73 98 Room Air all noted and reviewed including below (3) Cirrhosis of liver Ascites presence: unspecified Hepatic cirrhosis type: unspecified hepatic cirrhosis Qualified Code(s): K74.60 - Unspecified cirrhosis of liver (4) Abdominal pain Abdominal location: generalized Qualified Code(s): R10.84 - Generalized abdominal pain
[2023-08-29] MEDS: PANTOprazole 40 MG in SYRINGE 0 ML IV SCH (19:44)
[2023-08-30 08:42] LABS: Basophils # (auto) 0.02 K/uL (0.00-0.20); Basophils % (auto) 0.5 %; Eosinophils # (auto) 0.17 K/uL (0.00-0.50); Eosinophils % (auto) 4.1 %; Hematocrit (blood only) 32.6 % (42.0-52.0); Hemoglobin 10.5 g/dl (14.0-18.0); Immature Granulocytes # (auto) 0.02 K/uL (0.01-0.20); Immature Granulocytes % (auto) 0.5 %; Lymphocytes # (auto) 0.69 K/uL (1.20-3.40); Lymphocytes % (auto) 16.7 %; Mean Corpuscular Hemoglobin 30.8 pg (25.0-34.0); Mean Corpuscular Hgb Conc 32.2 g/dL (32.0-36.0); Mean Corpuscular Volume 95.6 fL (80.0-100.0); Mean Platelet Volume 9.8 fL (9.4-12.4); Monocytes # (auto) 0.27 K/uL (0.11-0.59); Monocytes % (auto) 6.5 %; Neutrophils # (auto) 2.97 K/uL (1.40-6.50); Neutrophils % (auto) 71.7 %; Platelet Count 83 K/uL (130-400); RDW Coefficient of Variation 14.7 % (11.5-14.5); RDW Standard Deviation 51.1 fL (36.4-46.3); Red Blood Count 3.41 M/uL (4.70-6.10); White Blood Count 4.14 K/ul (4.8-10.8)
[2023-08-30 08:57] LABS: BUN Creatinine Ratio 22.9 (10-20); Bilirubin Direct 2.7 mg/dl (0-0.2); Bilirubin,Total 4.5 mg/dl (0.2-1.0); Calcium 8.5 mg/dl (8.6-10.3); Creatinine Clr Calc Pharmacy 34.3 ml/min; Est GFR (African American) 36.2 ml/min; Est GFR (Non-African American) 31.3 ml/min; Potassium 3.9 mmol/L (3.5-5.1); Total Protein 6.7 gm/dl (6.0-8.3)
--- NOTE | 2023-08-30 13:08 | Hospitalist Progress Note ---
Date of Service August 30, 2023 Assessment & Plan (1) Transaminitis: (2) Hyperbilirubinemia: (3) Cirrhosis of liver: (4) Abdominal pain: (5) Atrial fibrillation: (6) Diabetes: (7) SANDI on CPAP: Plan This is an 82 yr old M who has a significant PMH of Chronic Atrial fib not on oral anticoagulation due to hx of GIB, T2DM, HTN, HLD, Aortic Valve stenosis s/p TAVR, SANDI on cpap, [place] CRUZ cirrhosis, hx of alcohol abuse, CKD-3 baseline cr 1.8-2 who presents to ED 2/2 abdominal pain x 2-3 days. Direct bilirubinemia Transaminitis Cirrhosis of liver admit to tele ? alcoholic hepatitis vs cholecystitis vs pancreatitis vs decompensated cirrhosis obtain RUQ US consult GI will keep NPO for now IV lasix 40mg x 1 IV ceftriaxone, flagyl gentle IVF x 1 L while NPO MELD 21 repeat LFTS, lipase, PT/INR in a.m. pt follows with hepatology for [place] CRU[place] abd CT: 2.7 R hepatic lobe lesion -- will need outpatient follow up 08/28 Abdominal pain resolved Bilirubin, LFTs about the same as yesterday GI consulted Recommend liver MRI to rule out obstruction Recommend Protonix 40 mg p.o. daily Recommend outpatient EGD to follow-up ulcer seen on previous EGD Suspicion for acute cholecystitis low Await liver MRI Continue IV antibiotics for now 08/29 Liver MRI: MRI confirms the presence of a 3.4 cm arterially hypervascular lesion in the right lobe with delayed washout. The enhancement kinetics are highly suspicious for hepatocellular carcinoma. Correlate with serum AFP levels. LFTs seems to be trending down AFP pending 08/30 AFP pending Will need GI follow-up in 1 to 2 weeks Abdominal pain, possible gastric ulcer/gastritis Still having intermittent epigastric pain Change Protonix to IV Continue to monitor closely If not improving, may need an EGD during this admission 08/30 Improving Will discharge on Protonix 40 mg p.o. twice daily Hx of alcohol abuse awss protocol folic acid, thiamine No signs of alcohol withdrawal Monitor closely Anemia Thrombocytopenia cts stable chronic Hemoglobin stable Has mild thrombocytopenia of 83 CBC in 1 week Will need to be followed up as an outpatient Chronic atrial fib s/p TAVR HTN HLD chronic, stable not on OAC 2/2 hx of GIB pt has stenosis of prosthetic aortic valve with unsuccessful attempt at [facility], on DAPT x 1 year from 04/21/23 continue asa, plavix, coreg, hydralazine hold statin given transaminitis daily weights, strict intake/output T2DM last a1c 6.0 04/2023 repeat a1c in a.m.: 5.5 novolog per protocol SANDI Cpap at HS CKD-3 baseline cr 1.8-2 chronic, stable monitor closely, avoid nephrotoxic agents History of CVA, TIA Continue aspirin Plavix Will need to follow-up on platelet levels closely DVT ppx: SCDS for now, on DAPT with hx of gib FULL CODE PCP: Grace Dispo: Anticipate discharge to home later today if patient remains medically stable Lives at home with family Admission and Anticipated Discharge Date Admission Date: August 27, 2023 Subjective Follow-up for elevated LFTs, liver lesion, etc. Seen resting in bed, comfortable, not in distress In good spirits States he feels improved today Epigastric pain has resolved No nausea or vomiting Reports dark stools today, but no kaye melena or hematochezia No fevers or chills no chest pain, dyspnea, palpitations, dizziness No other new symptoms Review of Systems Review of Systems: all noted and negative except for above Physical Exam Physical Exam: General- oriented x 3, not in distress, speaks in sentences with no effort or accessory muscle use Eyes-mild icterus Neck- no JVD Lungs- clear breath sounds bilaterally, no crackles or wheeze Heart- normal rate, regular rhythm; no murmurs Abdomen- normal bowel sounds, nondistended, soft, no tenderness Extremities- no pretibial edema, no calf tenderness Neuro- alert, oriented x 3; no gross focal neurologic deficits Skin- warm & dry Mild jaundice Results & Data Results & Data Vital Signs (Past 12 Hours) Vital Signs Temp Pulse Resp BP BP Pulse Ox O2 Del Method 08/30/23 11:45 36.5 C 69 17 138/59 L 95 Room Air 08/30/23 07:55 36.8 C 78 18 115/76 98 Room Air 08/30/23 03:44 36.4 C L 53 L 14 150/63 H 95 Room Air all noted and reviewed including below (3) Cirrhosis of liver Ascites presence: unspecified Hepatic cirrhosis type: unspecified hepatic cirrhosis Qualified Code(s): K74.60 - Unspecified cirrhosis of liver (4) Abdominal pain Abdominal location: generalized Qualified Code(s): R10.84 - Generalized abdominal pain
--- NOTE | 2023-08-30 15:16 | Discharge Summary ---
Discharge Summary Date of Service August 30, 2023 Notes For Next Care Provider Repeat CBC within 1 week, follow-up thrombocytopenia Will need EGD soon, GI follow-up in 1 to 2 weeks Medication Changes From Visit As per below Admission HPI Per Admitting Provider This is an 82 yr old M who has a significant PMH of Chronic Atrial fib not on oral anticoagulation due to hx of GIB, T2DM, HTN, HLD, Aortic Valve stenosis s/p TAVR, ASNDI on cpap, [place] cirrhosis, hx of alcohol abuse, CKD-3 baseline cr 1.8-2 who presents to ED 2/2 abdominal pain x 2-3 days. He states he has been having abd pain in the belly button region that has been coming and going the last 2-3 days. He thought maybe this was attributed to pills he was taking so he stopped taking some. He hasn't been able to eat/drink much the past few days due to pain. He feels his abdomen has been getting more full. He is prescribed lasix but is only taking it as needed. Last time he took a dose was 3 days ago. He denies any lower extremity swelling. He is moving bowels and urinating normally. He feels he is urinating less frequently today due to not taking his, "water pill." He denies any prior hx of alcohol withdrawal. His last drink was 2-3 days ago. He suspects he needs to stop drinking alcohol. He denies any f/c/s, chest pain, sob at rest, cough, uri sx, n/v, hematemesis, melena or he matochezia. He denies any recent medication changes. In ED patient remained hemodynamically stable although mildly hypertensive. Lab work notable for significant transaminitis with a total bilirubin of 6.3, direct bilirubin 4.4, AST 234, ALT 155, alk phos 630, lipase 90, ammonia and alcohol level WNL. Chest x-ray revealed cardiomegaly with pulmonary vascular congestion, layering pleural effusions with bibasilar consolidation. CT abd/pelvis revealed Trace ascites, small b/l pleural effusions, cirrhotic liver with possible 2.7 Cm lesion of right hepatic lobe, ? mild periportal and pericholecystic inflammatory change/edema. Admission Exam Per Admitting Provider GENERAL APPEARANCE: AxOx4 slightly disheveled gentleman, pleasant HEENT: NC, AT. MMM. ++sleral icterus NECK: Supple without lymphadenopathy. No stiffness or restricted ROM. HEART: Normal rate and regular rhythm, normal S1/S1, no m/r/g LUNGS: CTAB, moving air well. No crackles or wheezes are heard. ABDOMEN: Soft,distended, palpable hepatomegaly, nontender, no fluid shift, deep discomfort supraumbilical area EXTREMITIES: 2+ pitting edema just to knee, no tremors noted NEUROLOGICAL: Grossly nonfocal. Alert and oriented, moving all 4 extremities. CN not formally tested but appear grossly intact Skin: jaundice Principal Dx & Hospital Course #1 = Principal Diagnosis (1) Transaminitis: (2) Hyperbilirubinemia: (3) Cirrhosis of liver: (4) Abdominal pain: (5) Atrial fibrillation: (6) Diabetes: (7) SANDI on CPAP: Plan This is an 82 yr old M who has a significant PMH of Chronic Atrial fib not on oral anticoagulation due to hx of GIB, T2DM, HTN, HLD, Aortic Valve stenosis s/p TAVR, SANDI on cpap, [place] RCU[place] cirrhosis, hx of alcohol abuse, CKD-3 baseline cr 1.8-2 who presents to ED 2/2 abdominal pain x 2-3 days. Direct bilirubinemia Transaminitis Cirrhosis of liver admit to tele ? alcoholic hepatitis vs cholecystitis vs pancreatitis vs decompensated cirrhosis MELD [address]: 2.7 R hepatic lobe lesion -- will need outpatient follow up 08/28 Abdominal pain resolved Bilirubin, LFTs about the same as yesterday GI consulted Recommend liver MRI to rule out obstruction Recommend Protonix 40 mg p.o. daily Recommend outpatient EGD to follow-up ulcer seen on previous EGD Suspicion for acute cholecystitis low Await liver MRI Continue IV antibiotics for now 08/29 Liver MRI: MRI confirms the presence of a 3.4 cm arterially hypervascular lesion in the right lobe with delayed washout. The enhancement kinetics are highly suspicious for hepatocellular carcinoma. Correlate with serum AFP levels. LFTs seems to be trending down AFP pending 08/30 AFP pending: follow up Will need GI follow-up in 1 to 2 weeks Abdominal pain, possible gastric ulcer/gastritis Still having intermittent epigastric pain Change Protonix to IV 08/30 resolved Will discharge on Protonix 40 mg p.o. twice daily ff up with GI in 1-2 weeks to scheduled for EGD (history of gastric ulcer seen on EGD 12/26) Hx of alcohol abuse awss protocol folic acid, thiamine No signs of alcohol withdrawal Anemia Thrombocytopenia Hemoglobin stable Has thrombocytopenia of 83 CBC in 1 week Will need to be followed up closely as an outpatient Chronic atrial fib s/p TAVR HTN HLD chronic, stable not on OAC 2/2 hx of GIB pt has stenosis of prosthetic aortic valve with unsuccessful attempt at basilica, on DAPT x 1 year from 04/21/23 continue asa, plavix, coreg, hydralazine hold statin given transaminitis, resume accordingly daily weights, strict intake/output T2DM last a1c 6.0 04/2023 repeat a1c in a.m.: 5.5 novolog per protocol SANDI Cpap at HS CKD-3 baseline cr 1.8-2 chronic, stable monitor closely, avoid nephrotoxic agents History of CVA, TIA Continue aspirin Plavix Will need to follow-up on platelet levels closely DVT ppx: SCDS for now, on DAPT with hx of gib FULL CODE PCP: Grace Dispo: Anticipate discharge to home later today if patient remains medically stable Lives at home with family Discharge Exam General- oriented x 3, not in distress, speaks in sentences with no effort or accessory muscle use Eyes-mild icterus Neck- no JVD Lungs- clear breath sounds bilaterally, no crackles or wheeze Heart- normal rate, regular rhythm; no murmurs Abdomen- normal bowel sounds, nondistended, soft, no tenderness Extremities- no pretibial edema, no calf tenderness Neuro- alert, oriented x 3; no gross focal neurologic deficits Skin- warm & dry Mild jaundice Updated Medication List Medication Instructions Recorded Confirmed Type aspirin 81 mg tablet,delayed 81 mg PO DAILY 05/19/19 08/27/23 History release (Adult Low Dose Aspirin) allopurinol 100 mg tablet 100 mg PO DAILY 02/24/20 08/27/23 History atorvastatin 40 mg tablet 40 mg PO DAILY 02/24/20 08/27/23 History cholecalciferol (vitamin D3) 25 25 mcg PO DAILY 03/21/20 08/27/23 History mcg (1,000 unit) capsule (Vitamin D3) cyanocobalamin (vitamin B-12) 500 500 mcg PO DAILY 03/21/20 08/27/23 History mcg tablet thiamine HCl (vitamin B1) 100 mg 100 mg PO DAILY 03/21/20 08/27/23 History tablet acetaminophen 325 mg capsule 650 mg PO QID PRN Pain 05/26/22 08/27/23 History folic acid 0.8 mg capsule 0.8 mg PO DAILY 05/26/22 08/27/23 History furosemide 40 mg tablet 40 mg PO QAM #30 tabs 11/09/22 08/27/23 Rx pantoprazole 40 mg tablet,delayed 40 mg PO BID #60 tabs 12/17/22 08/27/23 Rx release carvedilol 3.125 mg tablet 1.5625 mg PO BID 08/27/23 08/27/23 History clopidogrel 75 mg tablet 75 mg PO QAM 08/27/23 08/27/23 History hydralazine 10 mg tablet 5 mg PO BID 08/27/23 08/27/23 History Hospital Stay Data Consultations 08/27/23 17:34 ED Decision to Admit Stat 08/27/23 18:19 Consult Gastroenterology Routine Diagnostic Imagining Performed Laboratory Results WBC 4.14 K/ul (4.8-10.8) L 08/30/23 08:23 RBC 3.41 M/uL (4.70-6.10) L 08/30/23 08:23 Hgb 10.5 g/dl (14.0-18.0) L 08/30/23 08:23 Hct 32.6 % (42.0-52.0) L 08/30/23 08:23 MCV 95.6 fL (80.0-100.0) 08/30/23 08:23 MCH 30.8 pg (25.0-34.0) 08/30/23 08:23 MCHC 32.2 g/dL (32.0-36.0) 08/30/23 08:23 RDW Std Deviation 51.1 fL (36.4-46.3) H 08/30/23 08:23 RDW Coeff of Efe 14.7 % (11.5-14.5) H 08/30/23 08:23 Plt Count 83 K/uL (130-400) L 08/30/23 08:23 MPV 9.8 fL (9.4-12.4) 08/30/23 08:23 Immature Gran % (Auto) 0.5 % 08/30/23 08:23 Neut % (Auto) 71.7 % 08/30/23 08:23 Lymph % (Auto) 16.7 % 08/30/23 08:23 [place] % (Auto) 6.5 % 08/30/23 08:23 Eos % (Auto) 4.1 % 08/30/23 08:23 Baso % (Auto) 0.5 % 08/30/23 08:23 Neut # (Auto) 2.97 K/uL (1.40-6.50) 08/30/23 08:23 Lymph # (Auto) 0.69 K/uL (1.20-3.40) L 08/30/23 08:23 [place] # (Auto) 0.27 K/uL (0.11-0.59) 08/30/23 08:23 Eos # (Auto) 0.17 K/uL (0.00-0.50) 08/30/23 08:23 Baso # (Auto) 0.02 K/uL (0.00-0.20) 08/30/23 08:23 Immature Gran # (Auto) 0.02 K/uL (0.01-0.20) 08/30/23 08:23 PT 13.3 Seconds (9.0-12.0) H 08/28/23 05:56 INR 1.2 (0.9-1.1) H 08/28/23 05:56 APTT 30 Seconds (21-31) 08/27/23 13:53 PTT Ratio 1.1 08/27/23 13:53 Sodium 137 mmol/L (136-145) 08/30/23 08:23 Potassium 3.9 mmol/L (3.5-5.1) 08/30/23 08:23 Chloride 105 mmol/L (98-107) 08/30/23 08:23 Carbon Dioxide 26 mmol/L (21-32) 08/30/23 08:23 Anion Gap 6 (3-11) 08/30/23 08:23 BUN 44 mg/dl (6-23) H 08/30/23 08:23 Creatinine 1.92 mg/dl (0.6-1.4) H 08/30/23 08:23 Est Cr Clr Drug Dosing 34.3 ml/min 08/30/23 08:23 Est GFR ( Amer) 36.2 ml/min 08/30/23 08:23 Est GFR (Non-Af Amer) 31.3 ml/min 08/30/23 08:23 BUN/Creatinine Ratio 22.9 (10-20) H 08/30/23 08:23 Glucose 189 mg/dl (70-99(Fasting)) H 08/30/23 08:23 POC Glucose 165 mg/dl (70-99) H 08/30/23 11:14 Estimat Average Glucose 111 mg/dl 08/28/23 05:56 Hemoglobin A1c 5.5 % (4.5-5.6) 08/28/23 05:56 Lactate 1.8 mmol/L (0.4-2.0) 08/27/23 13:53 Calcium 8.5 mg/dl (8.6-10.3) L 08/30/23 08:23 Magnesium 1.6 mg/dl (1.7-2.4) L 08/29/23 09:21 Total Bilirubin 4.5 mg/dl (0.2-1.0) H 08/30/23 08:23 Direct Bilirubin 2.7 mg/dl (0-0.2) H 08/30/23 08:23 AST 89 U/L (13-39) H 08/30/23 08:23 ALT 80 U/L (7-52) H 08/30/23 08:23 Alkaline Phosphatase 484 U/L (34-104) H 08/30/23 08:23 Ammonia 33.0 umol/L (18-72) 08/27/23 18:52 Troponin I High Sens 12.0 pg/ml (0-20) 08/27/23 13:53 Total Protein 6.7 gm/dl (6.0-8.3) 08/30/23 08:23 Albumin 3.0 gm/dl (3.4-5.0) L 08/30/23 08:23 Globulin 3.5 gm/dl (2.5-4.0) 08/28/23 05:56 Albumin/Globulin Ratio 0.8 (0.9-2) L 08/28/23 05:56 Lipase 15 U/L (11-82) 08/28/23 05:56 Urine Color [place] 08/29/23 15:37 Urine Appearance Clear (Clear) 08/29/23 15:37 Urine pH 5.0 (4.5-7.5) 08/29/23 15:37 Ur Specific [place] 1.032 (1.000-1.030) H 08/29/23 15:37 Urine Protein 1+ (Negative) H 08/29/23 15:37 Urine Glucose (UA) Negative (Negative) 08/29/23 15:37 Urine Ketones Negative (Negative) 08/29/23 15:37 Urine Blood Negative (Negative) 08/29/23 15:37 Urine Nitrite Positive (Negative) A 08/29/23 15:37 Urine Bilirubin 3+ (Negative) H 08/29/23 15:37 Urine Urobilinogen Negative (Negative) 08/29/23 15:37 Ur Leukocyte Esterase 1+ (Negative) H 08/29/23 15:37 Urine WBC (Auto) 5-10 /hpf (0-5) H 08/29/23 15:37 Urine RBC (Auto) 5-10 /hpf (0-4) H 08/29/23 15:37 U Hyaline Cast (Auto) 1-5 /lpf (0-5) 08/29/23 15:37 U Epithel Cells (Auto) 10-20 /lpf (0-5) H 08/29/23 15:37 Urine Bacteria (Auto) Negative (Negative) 08/29/23 15:37 Ethyl Alcohol mg/dL < 10.0 mg/dl (<10.0) 08/27/23 18:52 Hepatitis A IgM Ab NON-REACTIVE (NON-REACTIVE) 08/28/23 05:56 Hep Bs Antigen NON-REACTIVE (NON-REACTIVE) 08/28/23 05:56 Hep Bs Ag Confirmation TNP 08/28/23 05:56 Hep B Core IgM Ab NON-REACTIVE (NON-REACTIVE) 08/28/23 05:56 Hepatitis C Ab (EIA) NON-REACTIVE (NON-REACTIVE) 08/28/23 05:56 Impressions Abdomen/Pelvis CT 08/27/23 13:[address] WITH IV CONTRAST CT DOSE: 1397.26 mGy.cm HISTORY: left sided abd pain TECHNIQUE: Multiaxial CT images of the abdomen and pelvis were performed f ollowing the use of intravenous contrast. A dose lowering technique was utilized adhering to the principles of ALARA. COMPARISON STUDY: None. FINDINGS: Bibasilar linear densities favor subsegmental atelectasis or scarring. There are small bilateral pleural effusions. Calcified right hilar lymph nodes. Aortic valve prosthesis is noted. Severe coronary artery calcifications are present. No pneumoperitoneum. No pneumatosis. There are poststernotomy changes. No acute fractures. Nodular contour to the liver consistent with cirrhosis. The main portal vein is patent. Questionable 2.7 cm hypodense lesion within the right hepatic lobe on image 66. The spleen is top normal in size. There are punctate calcified splenic granulomas. No gallbladder wall thickening. Small amount of sludge/stones layering within the gallbladder. There is mild periportal/periprosthetic inflammatory change/edema. Trace perihepatic and perisplenic ascites is noted. The pancreas and adrenal glands are unremarkable. Bilateral renal cysts including a dominant 6.8 cm right parapelvic cyst. No hydronephrosis. Mild bilateral perinephric edema. This is likely chronic. Calcified plaque within the normal caliber abdominal aorta. No retroperitoneal or pelvic lymphadenopathy. No pelvic free fluid. The prostate gland is enlarged. Bladder wall thickening is likely due to chronic outlet obstruction from the enlarged prostate gland. A few bladder diverticula measuring up to 3.4 cm. Colonic diverticulosis. No evidence for acute diverticulitis. No bowel wall thickening or obstruction. Normal appendix. IMPRESSION: 1. No bowel wall thickening or obstruction. 2. Normal appendix. 3. Trace ascites. 4. Small bilateral pleural effusions. 5. Cirrhotic liver with a possible 2.7 cm lesion within the right hepatic lobe. Follow-up nonemergent dedicated liver MRI recommended for further evaluation. 6. Mild periportal and pericholecystic inflammatory change/edema. This is likely due to the patient's cirrhosis. An acute cholecystitis is considered less likely given the lack of gallbladder wall thickening but not entirely excluded. Follow- up abdominal ultrasound can be performed if the patient is complaining of right upper quadrant pain. 7. Additional findings as described above. ACT 112: Positive. There are findings on this exam that require communication between the performing entity and the patient following Patient Test Result Information Act ([place] Act 112) guidelines. Electronically signed by: Mehrdad Sanches M.D. 08/27/2023 4:38 PM Chest X-Ray 08/27/23 13:38 XR chest 1V portable HISTORY: 82 years-old Male sob acute shortness of breath COMPARISON: 12/14/2022 TECHNIQUE: AP view the chest FINDINGS: Cardiac silhouette is enlarged. Median sternotomy. No pneumothorax. Layering pleural effusions with dependent bibasilar consolidation, right greater than left. Pulmonary vascular congestion. Bones appear grossly intact. IMPRESSION: 1. Cardiomegaly with pulmonary vascular congestion. 2. Layering pleural effusions with bibasilar consolidation. ACT 112: Negative or not required by law. The above report was generated using voice recognition software. It may contain grammatical, syntax or spelling errors. Electronically signed by: Venkata Dye M.D. 08/27/2023 2:43 PM Abdomen Ultrasound 08/27/23 18:24 Exam(s): US ABDOMEN LIMITED EXAM: US Abdomen Limited, Right Upper Quadrant CLINICAL HISTORY: Reason for exam: eval for cholecystitis. TECHNIQUE: Real-time ultrasound of the right upper quadrant with image documentation. COMPARISON: No number 25/08/2021 and June 16, 2008, CT from August 27, 2023. FINDINGS: Liver: The liver measures 16.2 cm with possible mild fatty infiltration. No focal liver lesion is seen. The portal vein is patent with normal hepatopetal flow. No intrahepatic bile duct dilation. Gallbladder: The gallbladder is contracted. The wall is thickened measuring 4 mm. No gallstones or surrounding fluid identified. Common bile duct: Unremarkable as visualized. No stones. No dilation. Pancreas: The pancreas is obscured by bowel gas. Right kidney: The right kidney measures 12.2 cm with mild atrophy. There is a 8.5 x 4.2 x 6.1 cm cystic structure adjacent to the mid to lower right kidney which appears more likely to represent a parapelvic cyst and then hydronephrosis. No stones. Free fluid: There is a trace amount of ascites adjacent to the inferior margin of the liver. Pleural space: There is a small right pleural effusion. IMPRESSION: 1. The right kidney measures 12.2 cm with mild atrophy. There is a 8.5 x 4.2 x 6.1 cm cystic structure adjacent to the mid to lower right kidney which appears more likely to represent a parapelvic cyst and then hydronephrosis. 2. The gallbladder is contracted. The wall is thickened measuring 4 mm. No gallstones or surrounding fluid identified. 3. Electronically signed by: Salty Ennis MD 08/27/23 20:19 PM Abdomen MRI 08/28/23 09:22 MRI OF THE ABDOMEN COMBO; MRCP CLINICAL HISTORY: Cirrhosis. Liver lesion seen by CT. COMPARISON STUDY: Abdominal CT dated 08/27/2023. TECHNIQUE: MRI of the abdomen is performed transverse T1 and T2-weighted sequences in the axial and coronal planes. Contrast enhanced sequences were acquired following the IV administration of 10 cc of Eovist. Subtraction imaging and diffusion-weighted imaging were utilized. High resolution MRCP images were obtained. 3-D reformats are created and assessed. The examination is significantly degraded by motion artifact. FINDINGS: Lower chest: There are midline sternotomy wires. There are right larger than left pleural effusions with dependent atelectasis. The heart is enlarged and without pericardial effusion. Liver: The liver is cirrhotic in morphology and heterogeneous in signal intensity. There is nodularity of the hepatic surface contour. No intrahepatic biliary ductal dilatation is seen. The hepatic veins and portal veins are patent. There is a 3.4 cm T2 hyperintense arterially enhancing lesion in hepatic segment VIII just below the diaphragm. This is best seen on axial postcontrast image #25 and delayed Eovist image #24. This shows portal venous phase washout and does not retain Eovist. No additional enhancing hepatic lesion is clearly identified. Gallbladder: A fluid/fluid level within the gallbladder may represent stones/sludge. There is no MRI evidence of acute cholecystitis. There is no intra or extrahepatic biliary ductal dilatation. The common bile duct measures up to 4 mm diameter. No intraluminal filling defects are seen to suggest choledocholithiasis. The pancreatic duct is normal in caliber. Spleen: The spleen is enlarged measuring 15.3 cm in length. Pancreas: The pancreas is moderately atrophic. There are numerous (less than 10) simple cystic lesions scattered the pancreas along the course of the duct which measure up to 11 mm. These are typical for a sidebranch IPMNs. Adrenal glands: Unremarkable. Kidneys: The kidneys are atrophic and without hydronephrosis. The kidneys enhance and excrete symmetrically. Bilateral renal cysts measure up to 7 cm. Abdominal aorta: Normal in course and caliber. Bowel: Visualized portions of the small bowel and colon show no evidence of obstruction. There is diverticulosis of the colon. Peritoneum: There is trace perihepatic and perisplenic ascites. Lymphadenopathy: Prominent lymph nodes in the dionne hepatis are nonspecific and likely reactive. Skeletal structures: Visualized skeletal structures times are normal marrow signal intensity. IMPRESSION: 1. Significantly motion compromised examination. 2. The liver is cirrhotic in morphology and heterogeneous in signal intensity. 3. MRI confirms the presence of a 3.4 cm arterially hypervascular lesion in the right lobe with delayed washout. The enhancement kinetics are highly suspicious for hepatocellular carcinoma. Correlate with serum AFP levels. 4. A fluid/fluid level within the gallbladder likely represents stones/sludge. There is no MRI evidence of acute cholecystitis. 5. Right larger than left pleural effusions. 6. Splenomegaly and trace ascites indicate portal hypertension. 7. Additional findings as above. ACT 112: Positive. There are findings on this exam that require communication between the performing entity and the patient following Patient Test Result Information Act ([place] Act 112) guidelines. Electronically signed by: Jarrett White M.D. 08/28/2023 11:28 PM Pending Results Patient Have Any Pending Studies at Discharge: No Discharge Instructions Given to Patient (Per Discharging Provider) PLEASE REFER TO YOUR NEW MEDICATION LIST AND FOLLOW INSTRUCTIONS CAREFULLY. YOUR NEW MEDICATIONS INCLUDE: Protonix-antacid for possible gastritis or peptic ulcer disease No alcohol or smoking. PLEASE CALL YOUR PRIMARY CARE PHYSICIAN OR RETURN TO THE ER IF WITH WORSENING OF SYMPTOMS, INCLUDING Abdominal pain, nausea vomiting, blood in the stools or black stools, fevers or chills, etc. FOLLOW UP WITH PRIMARY CARE PHYSICIAN IN 1 WEEK. FOLLOW-UP WITH ROOFING SUPERVISOR IN 1 TO 2 WEEKS. THE CLINIC WILL BE CALLING YOU SOON FOR THE APPOINTMENTS. Total Time Total Time Spent Total Time Spent (In Minutes): >30 minutes
== END 2023-08-30 16:30 | disposition home or self-care (01) | DRG 432 ==
LOC: ED 13:16 → INTOOBSV 18:06 → SUATTDRO 18:06 → 2E 18:06